=== PATIENT | female | born 1950 | race Caucasian/White ===

== ENCOUNTER 2022-01-28 14:32 | Outpatient (RCR) | payer MEDICARE, BC, SELFPAY ==
[2022-01-28 14:23] VITALS: BP 110/73; PULSE 84; RESP 16; TEMP 35.8; O2SAT 94
== END 2022-01-30 23:59 | disposition home or self-care (01) ==
LOC: CCIC 14:32
PROVIDERS: PCP Clinical Nurse Specialist; Visit Provider Clinical Nurse Specialist
DX: C54.1 Malignant neoplasm of endometrium (principal); R11.2 Nausea with vomiting, unspecified
CPT/HCPCS: 96360

== ENCOUNTER 2022-02-27 10:00 | Outpatient (RCR) | payer MEDICARE, BC, SELFPAY ==
[2022-01-31 10:30] VITALS: BP 132/71; PULSE 72; RESP 16; TEMP 36.2; O2SAT 96
[2022-01-31] MEDS: 0.9 % SODIUM CHLORIDE 1000 ml 1,000 ML IV (11:04)
--- NOTE | 2022-02-07 14:33 | ONC.NURNOTE ---
Pt did not show up for hydration appt, called pt, pt currently hospitalized for colitis.
[2022-02-18 11:38] VITALS: BP 117/71; PULSE 79; RESP 16; TEMP 36.1; O2SAT 97
[2022-02-18] MEDS: 0.9 % SODIUM CHLORIDE 1000 ml 1,000 ML IV (11:54)
[2022-02-20 11:36] VITALS: BP 148/77; PULSE 72; RESP 16; TEMP 36.2; O2SAT 99
[2022-02-20] MEDS: 0.9 % SODIUM CHLORIDE 1000 ml 1,000 ML 950 ML IV (12:17)
[2022-02-20] MEDS: SODIUM CHLORIDE 0.9 % (FLUSH) 10 ML SYRINGE IVF (16:55)
[2022-02-27 10:03] VITALS: BP 112/74; PULSE 70; RESP 16; TEMP 35.8; O2SAT 98
[2022-02-27] MEDS: SODIUM CHLORIDE 0.9 % (FLUSH) 10 ML SYRINGE IVF (10:26)
[2022-02-27] MEDS: 0.9 % SODIUM CHLORIDE 1000 ml 1,000 ML IV (10:27)
== END 2022-03-02 23:59 | disposition home or self-care (01) ==
LOC: CCIC 10:00
PROVIDERS: Visit Provider Clinical Nurse Specialist
DX: C54.1 Malignant neoplasm of endometrium (principal)
CPT/HCPCS: 96360; J7030

== ENCOUNTER 2022-05-01 14:59 | Emergency (ER) | payer MEDICARE, BC, SELFPAY ==
[2022-05-01 15:23] VITALS: BP 114/59; PULSE 66; RESP 16; O2SAT 96
[2022-05-01 16:00] VITALS: BP 122/57; PULSE 67; RESP 16; O2SAT 96
--- NOTE | 2022-05-01 16:10 | CRLHL7_ITS ---
For Patients: As a result of the Century Cures Act, medical imaging exams and procedure reports are released immediately into your electronic medical record. You may view this report before your referring provider. If you have questions, please contact your health care provider. INDICATION: Fall. TECHNIQUE: Head CT without contrast. COMPARISON: None. FINDINGS: Periventricular areas of low attenuation, likely due to chronic small vessel ischemic changes. Generalized volume loss. Atherosclerosis. No intracranial hemorrhage. No discrete mass or mass effect. There is no midline shift. The basilar cisterns are patent. No hydrocephalus. The figueroa-white matter interface is otherwise preserved. No acute osseous abnormality. No extracalvarial soft tissue abnormality. The mastoid air cells are clear. The paranasal sinuses are well-aerated. The visualized portions of the orbits and globes are unremarkable. IMPRESSION: No acute intracranial process per unenhanced head CT. Please note that all CT scans at this facility use dose modulation, iterative reconstruction, and/or weight-based dosing when appropriate to reduce radiation dose to as low as reasonably achievable. Dictated by Stephan Howell MD @ 05/01/2022 5:27:35 PM (Electronically Signed)
--- OUTSIDE RECORDS SUMMARY | 2022-05-01 16:10 | XMS_ITS | Encounter Summary ---
:1950 Author Organization [facility] Address [address] [place] [address] Care Team Providers Name Role Phone Elsewhere, Pcp Primary Care Provider Unavailable Encounter Details Date Type Department Care Team Description 04/16/2022 Clinical Communication Department of Judy Mccall Radiation [facility] [address] [facility] [address] [place] [address] [phone] Social History Tobacco Use Types Packs/Day Years Used Date Smoking Tobacco: Never Smokeless Tobacco: Never Alcohol Use Standard Drinks/Week Comments Not Currently 0 (1 standard drink = 0.6 oz pure alcoho l) rarely Alcohol Habits Answer Date Recorded How often do you have a drink containing alcohol? Never 03/17/2022 How many drinks containing alcohol do you have on a typical day 1 or 2 08/01/2021 when you are drinking? How often do you have six or more drinks on one occasion? Ne isabella 08/01/2021 Comment: rarely 09/16/2021 Social Isolation Answer Date Recorded In a typical week, how many times do you More than three marcell es a week 03/17/2022 talk on the phone with family, friends, or neighbors? How often do you get together with friends Twice a week 03/17/2022 or relatives? How often do you attend gnosticism or More than 4 times per year 03/17/2022 jewish services? Do you belong to any clubs or Yes 03/17/2022 organizations such as gnosticism groups, unions, fraternal or athletic groups, or school groups? How often do you attend meetings of the 1 to 4 times per yea r 03/17/2022 clubs or organizations you belong to? Are you now , , , 03/17/2022 , never or living with a partner? Physical Activity Answer Date Recorded On average, how many days per week do you engage in moderate to 4 days 03/17/2022 strenuous exercise (like walking fast, running, jogging, dancing, swimming, biking, or other activities that cause a light or heavy sweat)? On average, how many minutes do you engage in exercise at is 10 min 03/17/2022 level? Stress Answer Date Recorded Do you feel stress - tense, restless, nervous, or anxious, N ot at all 03/17/2022 or unable to sleep at night because your mind is troubled all the time - these days? Financial Resource Strain Answer Date Recorded How hard is it for you to pay for the very basics like Somew hat hard 03/17/2022 food, housing, medical care, and heating? Intimate Partner Violence Answer Date Recorded Within the last year, have you been afraid of your partner o r No 03/17/2022 ex-partner? Within the last year, have you been humiliated or emotionall y No 03/17/2022 abused in other ways by your partner or ex-partner? Within the last year, have you been kicked, hit, slapped, or No 03/17/2022 otherwise physically hurt by your partner or ex-partner? Within the last year, have you been raped or forced to have any No 03/17/2022 kind of sexual activity by your partner or ex-partner? Food Insecurity Answer Date Recorded Within the past 12 months, you worried that your food Never true 03/17/2022 would run out before you got money to buy more. Within the past 12 months, the food you bought just Sometime s true 03/17/2022 didn't last and you didn't have money to get more. Transportation Needs Answer Date Recorded In the past 12 months, has lack of transportation kept you f rom Yes 03/17/2022 medical appointments or from getting medications? In the past 12 months, has lack of transportation kept you f rom No 03/17/2022 meetings, work, or getting things needed for daily living? Housing Stability Answer Date Recorded In the last 12 months, was there a time when you were not ab le No 03/17/2022 to pay the mortgage or rent on time? In the last 12 months, how many places have you lived? 1 03/17/2022 In the last 12 months, was there a time when you did not hav e a No 03/17/[address] to sleep or slept in a [facility] (including now)? Education Answer Date Recorded What is the highest level of school Bachelor's degree (e.g., BA, AB, 07/20/2021 you have completed or the highest BS) degree you have received? 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 - 04/16/2022 12:52 PM CDT ASSESSMENT Patient calls today. She notes that she was on the way to the bathroom to urinate when she experienced explosive incontinent diarrhea. When this was occurring she became lightheaded/loss balance; started fainting and remembers bumping her head twice when she fainted to a sitting position on the groundin her hallway. She took 1 tablet of Imodium. Soon after she experienced two more episodes of continent diarrheas. She denies fevers or chills. She denies vomiting. She feels that her stomach is upset but denies nausea. Patient is home alone. Patient does not feel lightheaded now. She denies neurological changes, bleeding, bruising or hitting her head hard. PLAN I recommended that her bring her home Pedialyte as soon as possible. Patient is to take 2 tablets of Imodium now. She is to work on rehydrating with water now. She can take TUMS for upset stomach. Once, she starts to feel bowels are calming down she will slowly work on bland diet such as toast, applesauce, broth and rice. She will avoid spicy/acidic foods. If patient is feeling better then she will contact our scheduling desk to come in for treatment later this afternoon. I will update Dr. Mccall. If patient is not improving she will contact our care team immediately. Disposition/Recommendation: self-care - appropriate at this time, patient encouraged to call back with questions. Information/Education: patient/caller able to teach back. Caller agreeable to plan of care: yes. The following references were used: nursing clinical judgement. Telephone Encounter - Melly Perez - 04/16/2022 11:36 AM CDT Caller: Patient Is there a valid authorization to speak with caller? Yes Primary Radiation Oncologist: Dr. Mccall Reason for call: Patient called because she has been having explosive diarrhea for the last hour andis not sure if she can make it to her treatment scheduled today. She says she believes she may have even passed out once. She would like to speak with someone about what she can do. Phone number: [phone] Is it okay to leave a voicemail on answering machine with test results? Yes [facility] ([facility] [place] [facility] [place] [facility] [address] [facility] [address] [facility] [id number] [facility] [place] [address] [place] [address] [place] [address] [facility] [place], [place] - [address] [place] [id number] [facility] [place], [place] - [address] [facility] [address] [place] [address] Melly Perez documented in this encounter Plan of Treatment Upcoming Encounters Date Type Specialty Care Team Description 05/02/2022 Appointment Radiation Oncology Dot Lopez M.D. [address] [place] [phone] 05/05/2022 Appointment Radiation Oncology Judy Mccall M.D. [address] [place] [phone] 05/06/2022 Appointment Radiation Oncology Judy Mccall M.D. [address] [place] [phone] 05/06/2022 Appointment Radiation Oncology Judy Mccall M.D. [address] [place] [phone] 05/07/2022 Appointment Radiation Oncology Judy Mccall M.D. [address] [place] [phone] 05/08/2022 Appointment Radiation Oncology Judy Mccall M.D. [address] [place] [phone] 05/22/2022 Clinical Communication Admitting/Central Scheduling 05/26/2022 Appointment Radiology Merlyn Rose APRN, C.NLeopoldo, M.S.N. [address] [place] [phone] 05/27/2022 Office Visit Oncology Merlyn Rose APRN, C.NAye., M.S.N. [address] [place] [phone] documented as of this encounter Visit Diagnoses Not on filedocumented in this encounter Care Teams Leave Specialist Relationship Specialty Start Date End Date Elsewhere, Pcp PCP - General Internal Medicine 10/01/21 documented as of this encounter
--- OUTSIDE RECORDS SUMMARY | 2022-05-01 16:10 | XMS_ITS | Encounter Summary ---
:1950 Author Organization [facility] Address [address] [place] [address] Care Team Providers Name Role Phone Elsewhere, Pcp Primary Care Provider Unavailable Encounter Details Date Type Department Care Team Description 04/18/2022 Hospital Encounter Department of Radiation Trent Mccall I., Oncology in [facility] [address] [facility] [address] [place] [address] [phone] Social History Tobacco Use Types Packs/Day Years [...] or relatives? How often do you attend buddhism or More than 4 times per year 03/17/2022 yarsanism services? Do you belong to any clubs or Yes 03/17/2022 organizations such as buddhism groups, unions, fraternal or athletic groups, or [...] place to sleep or slept in a halfway (including now)? Education Answer Date Recorded What is the highest level of school Bachelor's degree (e.g., BA, AB, 07/20/2021 you have completed or the highest BS) degree you have received? 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 [address] [place] [phone] 05/05/2022 Appointment Radiation Oncology Judy Mccall M.D. [address] [place] [phone] 05/06/2022 Appointment Radiation Oncology Judy Mccall M.D. [address] [place] [address] [phone] 05/06/2022 Appointment Radiation Oncology Judy Mccall M.D. [address] [place] [phone] 05/07/2022 Appointment Radiation Oncology Judy Mccall M.D. [address] [place] [address] [phone] 05/08/2022 Appointment Radiation Oncology Judy Mccall M.D. [address] [place] [address] [phone] 05/22/2022 Clinical Communication Admitting/Central Scheduling 05/26/2022 Appointment Radiology Merlyn Rose APRN, C.NLeopoldo, M.S.N. [address] [place] [phone] 05/27/2022 Office Visit Oncology Merlyn Rose APRN, C.NLeopoldo, M.S.N. [address] [place] [phone] documented as of this encounter Visit Diagnoses Not on filedocumented in this encounter Care Teams Room Attendant Relationship Specialty Start Date End Date Elsewhere, Pcp PCP - General Internal Medicine 10/01/21 documented as of this encounter
--- OUTSIDE RECORDS SUMMARY | 2022-05-01 16:10 | XMS_ITS | Encounter Summary ---
:1950 Author Organization [facility] Address [address] [place] [address] Care Team Providers Name Role Phone Elsewhere, Pcp Primary Care Provider Unavailable Reason for Referral Radiation Therapy (Routine) - Authorized Specialty Diagnoses / Procedures Referred By Contact Refer red To Contact Diagnoses Malignant Neoplasm Of Uterus Endometrial (HCC) Dot Lopez M.D. [facility] Procedures Brachytherapy HDR [address] [place], [place] [phone] Referral ID Status Reason Start Date Expiration Date Visits V isits Requested Authorized [id number] Authorized 03/21/2022 03/21/2023 2 2 Reason for Visit Radiation Therapy (Routine) - Authorized Specialty Diagnoses / Procedures Referred By Contact Refer red To Contact Diagnoses Malignant Neoplasm Of Uterus Endometrial (HCC) Dot Lopez M.D. [facility] Procedures Brachytherapy HDR [address] [place], [place] [phone] Referral ID Status Reason Start Date Expiration Date Visits V isits Requested Authorized [id number] Authorized 03/21/2022 03/21/2023 2 2 Encounter Details Date Type Department Care Team Description 04/28/2022 Hospital Encounter Department of Dot Lopez ant Neoplasm Radiation Oncology [facility] C[facility]shaw Of Uterus in [place], [facility] [address] [facility] Endometrial (HCC) [place], [place] [address] [facility] [address] [place], [place] [phone] (Work) [phone] Social History Tobacco Use Types Packs/Day Years [...] or relatives? How often do you attend mormon or More than 4 times per year 03/17/2022 gnosticist services? Do you belong to any clubs or Yes 03/17/2022 organizations such as mormon groups, unions, fraternal or athletic groups, or [...] minutes do you engage in exercise at th is 10 min 03/17/2022 level? Stress Answer [...] place to sleep or slept in a fpc (including now)? Education Answer Date Recorded What is the highest level of school Bachelor's degree (e.g., BA, AB, 07/20/2021 you have completed or the highest BS) degree you have received? 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 albuterol 2.5 mg /3 mL Inhale 2.5 mg every 0 0 03/2018 nebulizer solution 4 (four) hours as needed for wheezing. albuterol 90 Inhale 2 puffs 0 08/22/2019 mcg/actuation inhaler every 4 (four) hours as needed for wheezing. apixaban (Eliquis) 5 mg Take 1 tablet (5 mg 180 tablet 3 04/15/2023 tablet total) by mouth 2 (two) times a day. calcium carbonate Take 1 tablet by 0 (CALCIUM 600 ORAL) mouth 2 (two) times a day. cetirizine (ZyrTEC) 10 mg Take 1 tablet by 0 07/03 tablet mouth daily. cholecalciferol, vitamin Take 1 tablet by 0 D3, (VITAMIN D3 ORAL) mouth every morning. clindamycin (CLEOCIN T) 1 APPLY ONE 60 mL 1 12/05/2021 % lotion APPLICATION TOPICALLY TWO TIMES A DAY TO SCALP CRANBERRY ORAL Take 1 tablet by 0 mouth every morning. ferrous sulfate 325 mg Take 325 mg by 0 (65 mg iron) tablet mouth every other day. fluticasone propionate Administer 2 sprays 0 03/2021 (FLONASE) 50 into nostril(s) 2 mcg/actuation nasal spray (two) times a day. ipratropium-albuteroL Inhale 3 mL every 6 0 07/30 (DUONEB) 0.5-2.5 mg/3 mL (six) hours as nebulizer solution needed for wheezing or shortness of breath. mometasone 0.033 Administer 2 sprays 84 mL 11 09/16/2021 %-ipratropium 0.02 into each nostril 2 %-diphenhydramine 0.033 % (two) times a day. nasal spray Shake very well prior to each use. montelukast (SINGULAIR) Take 1 tablet by 0 2020 10 mg tablet mouth at bedtime. NaCl 0.9 % irrigation 0 10/26/2021 omeprazole (PriLOSEC) 20 Take 20 mg by mouth [address] capsule every morning before breakfast. ondansetron (ZOFRAN) 4 mg Take 1 tablet (4 mg 20 tablet 0 0 10/07/2021 tablet total) by mouth every 8 (eight) hours as needed for nausea or vomiting. ondansetron (ZOFRAN) 8 mg Take 1 tablet (8 mg 30 tablet 3 0 10/22/2021 10/22/2022 tabletIndications: total) by mouth Malignant Neoplasm Of every 8 (eight) Uterus Endometrial (HCC) hours as needed for nausea or vomiting. ondansetron ODT Dissolve 1 tablet 30 tablet 1 12/10/2021 (ZOFRAN-ODT) 8 mg (8 mg total) in the disintegrating tablet mouth every 8 (eight) hours as needed for nausea or vomiting. prochlorperazine Take 1 tablet (10 30 tablet 3 10/22/2021 0 10/22/2022 (COMPAZINE) 10 mg mg total) by mouth tabletIndications: every 6 (six) hours Malignant Neoplasm Of as needed for Uterus Endometrial (HCC) nausea or vomiting. sennosides-docusate Take 1 tablet by 0 10/07/2021 sodium (SENOKOT-S) 8.6-50 mouth 2 (two) times mg per tablet a day as needed for constipation. sertraline (ZOLOFT) 100 Take 100 mg by 0 03/28/20 21 mg tablet mouth every morning. SODIUM CHLORIDE NASAL Administer into 0 nostril(s) 2 (two) times a day. Nasal irrigation before triple spray documented as of this encounter Procedure Notes Dot Lopez M.D. - 04/28/2022 9:00 AM CDTAssociated Order(s): Brachytherapy HDR Pre-Procedure Diagnose(s): Malignant Neoplasm Of Uterus Endometrial (HCC) Post-Procedure Diagnose(s): Malignant Neoplasm Of Uterus Endometrial (HCC) Brachytherapy HDR Performed by: Dot Lopez M.D. Authorized by: Dot Lopez M.D. PROCEDURE DETAILS Brachytherapy: Gynecologic brachytherapy Type: high dose rate Treatment Sites: Vaginal cuff Applicator(s): Unalakleet applicator Image-Guidance: CT Brachytherapy Fraction Number: 1 Prescription Dose this Fraction: 500 Dose prescribed to: 5-7 mm Total planned brachytherapy fractions: 2 Total planned brachytherapy dose: 1000 Applicator removed: Yes CONSENT The benefits, risks and alternatives to the procedure and the potential need for sedation or anesthesia as well as the names, roles, and responsibilities of healthcare team members performing significant interventional tasks were discussed with the patient and/or decision maker. PRE PROCEDURE DETAILS Procedure purpose: Therapeutic Indications: Endometrial cancer Appropriate hand hygiene, gown, cap, mask, protective eyewear, sterile gloves, skin preparation, sterile drape, and strict aseptic technique were utilized as applicable for the procedure.: yes SEDATION / ANESTHESIA Anesthesia method: none POST PROCEDURE DETAILS Patient tolerance of procedure: Successful Complications: No apparent complications Post-procedure Survey: Post-procedure survey performed and no residual radioactivity COMMENTS The patient presents for her first treatment. She reports diarrhea, controlled with Imodium, and bloating that is controlled with GasX. She takes Compazine prior to treatment. She had a fall at home related to dizziness; she hit her right elbow on the sink but did not hit her head. She is now receiving IV fluids and feeling much better. Patient was taken to the brachytherapy suite and placed on the table in the dorsal lithotomy position. On examination, the vaginal cuff was well-healed and there was no evidence of dehiscence. After serial dilation of the vagina, a multi-channel Unalakleet applicator with a 30 mm sleeve was inserted into the vagina with a marker at the 90 mm level (treated to 85 mm). The applicator was secured in positionwith the attachment device and fixed to the table. CT scan was done for verification of the positionof the applicator and post planning purposes. The pre-procedure verification was conducted, and the procedural time out was conducted prior to performing the procedure and confirmed in a procedural pause. Subsequently, the patient was treated using an atlas plan delivering 500 cGy to the optimized treatment volume with a HDR iridium source. Following the completion of brachytherapy, the applicator was removed without difficulty, a survey was done to confirm no residual radioactivity, and the patient was dismissed in good condition. She will return on 05/02/22 for her next fraction. She will continue with EBRT in [place] as scheduled. documented in this encounter Plan of Treatment Upcoming Encounters Date Type Specialty Care Team Description 05/02/2022 Appointment Radiation Oncology Dot Lopez M.D. [address] [place] [phone] 05/05/2022 Appointment Radiation Oncology Judy Mccall M.D. [address] [place] [address] [phone] 05/06/2022 Appointment Radiation Oncology Judy Mccall M.D. [address] [place] [address] [phone] 05/06/2022 Appointment Radiation Oncology Judy Mccall M.D. [address] [place] [phone] 05/07/2022 Appointment Radiation Oncology Judy Mccall M.D. [address] [place] [phone] 05/08/2022 Appointment Radiation Oncology Judy Mccall M.D. [address] [place] [phone] 05/22/2022 Clinical Communication Admitting/Central Scheduling 05/26/2022 Appointment Radiology Merlyn Rose APRN C.N.P., M.S.N. [address] [place] [address] [phone] 05/27/2022 Office Visit Oncology Merlyn Rose APRN C.N.P., M.S.N. [address] [place] [phone] documented as of this encounter Procedures Procedure Name Priority Date/Time Associated Diagnosis Comme nts BRACHYTHERAPY HDR Routine 04/28/2022 9:00 AM Malignant Neoplas m Of Results for this CDT Uterus Endometrial procedure are in (HCC) the results section. documented in this encounter Results Brachytherapy HDR (04/28/2022 9:00 AM CDT) Specimen (Source) Anatomical Location Collection Method / Collectio n Time Received Time / Laterality Volume Narrative TERI ONEAL - 04/28/2022 9:00 AM CDT Dot Lopez M.D. ? 04/28/2022 ??9:25 AM Brachytherapy HDR Performed by: Dot Lopez M.D. Authorized by: Dot Lopez M.D. PROCEDURE DETAILS Brachytherapy: ??Gynecologic brachythera py Type: high dose rate ?? Treatment Sites: ??Vaginal cuff Applicator(s): ??Unalakleet applicator Image-Guidance: CT ?? Brachytherapy Fraction Number: ??1 Prescription Dose this Fraction: ??500 Dose prescribed to: ??5-7 mm Total planned brachytherapy fractions: ? ?2 Total planned brachytherapy dose: ??1000 Applicator removed: ??Yes CONSENT The benefits, risks and alternatives to the procedure and the potential need for sedation or anesthesia as well as the names, roles, and responsibilities of healthcare team memb ers performing significant interventional tasks were discussed with the patient and/or decision maker. PRE PROCEDURE DETAILS ??Procedure purpose: ??Therapeutic ??Indications: ??Endometrial cancer ??Appropriate hand hygiene, gown, cap, mask, protective eyewear, sterile gloves, skin preparation, sterile drape, and strict aseptic technique were utilized as applicable for the procedure .: yes ?? SEDATION / ANESTHESIA Anesthesia method: none POST PROCEDURE DETAILS ??Patient tolerance of procedure: ??Suc cessful ??Complications: ??No apparent complica tions ??Post-procedure Survey: ??Post-procedu re survey performed and no residual radioactivity COMMENTS ?? The patient presents for her first t reatment. She reports diarrhea, controlled with Imodium, and bloating th at is controlled with GasX. She takes Compazine prior to treatment. She had a fall at home related to dizziness; she hit her right elbow on th e sink but did not hit her head. She is now receiving IV fluids and feeli ng much better. Patient was taken to the brachytherapy s [facility] and placed on the table in the dorsal lithotomy position. ??On exam ination, the vaginal cuff was well-healed and there was no evidence of dehiscence. After serial dilation of the vagina, a multi-channel Unalakleet tylor licator with a 30 mm sleeve was inserted into the vagina with a marker a t the 90 mm level (treated to 85 mm). ??The applicator was secured in pos ition with the attachment device and fixed to the table. CT scan was done for verification of the position of the applicator and post planning purp oses. The pre-procedure verification was condu cted, and the procedural time out was conducted prior to performing the pr ocedure and confirmed in a procedural pause. Subsequently, the patient was treated us ing an atlas plan delivering 500 cGy to the optimized treatment volume wi th a HDR iridium source. ?? Following the completion of brachytherap y, the applicator was removed without difficulty, a survey was done to confirm no residual radioactivity, and the patient was dismi ssed in good condition. She will return on 05/02/22 for her next fraction. She will continue with EBRT in [place] as scheduled. Dot Lopez M.D. RADIATION ONCOLOGY ORDERABLE S Performing Organization Address City/State/ZIP Code Phon e Number [facility] documented in this encounter Visit Diagnoses Diagnosis Malignant Neoplasm Of Uterus Endometrial (HCC) documented in this encounter Care Teams Street Light Repairer Helper Relationship Specialty Start Date End Date Elsewhere, Pcp PCP - General Internal Medicine 10/01/21 documented as of this encounter
--- OUTSIDE RECORDS SUMMARY | 2022-05-01 16:10 | XMS_ITS | Encounter Summary ---
:1950 Author Organization [facility] Address [address] [place] [address] Care Team Providers Name Role Phone Elsewhere, Pcp Primary Care Provider Unavailable Encounter Details Date Type Department Care Team Description 04/30/2022 Hospital Encounter Department of Radiation Trent Mccall I., Oncology in [facility] [address] [facility] [address] [place] [address] [phone] Social History Tobacco Use Types Packs/Day Years [...] or relatives? How often do you attend denominational or More than 4 times per year 03/17/2022 anglican services? 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 [address] [place] [address] [phone] 05/05/2022 Appointment Radiation Oncology Judy Mccall M.D. [address] [place] [address] [phone] 05/06/2022 Appointment Radiation Oncology Judy Mccall M.D. [address] [place] [address] [phone] 05/06/2022 Appointment Radiation Oncology Judy Mccall M.D. [address] [place] [phone] 05/07/2022 Appointment Radiation Oncology Judy Mccall M.D. [address] [place] [address] [phone] 05/08/2022 Appointment Radiation Oncology Judy Mccall M.D. [address] [place] [address] [phone] 05/22/2022 Clinical Communication Admitting/Central Scheduling 05/26/2022 Appointment Radiology Merlyn Rose APRN, C.NLeopoldo, M.S.N. [address] [place] [phone] 05/27/2022 Office Visit Oncology Merlyn Rose APRN, C.NLeopoldo, M.S.N. [address] [place] [phone] documented as of this encounter Visit Diagnoses Not on filedocumented in this encounter Care Teams Technology Sales Representative Relationship Specialty Start Date End Date Elsewhere, Pcp PCP - General Internal Medicine 10/01/21 documented as of this encounter
--- OUTSIDE RECORDS SUMMARY | 2022-05-01 16:10 | XMS_ITS | Encounter Summary ---
:1950 Author Organization [facility] Address [address] [place] [address] Care Team Providers Name Role Phone Elsewhere, Pcp Primary Care Provider Unavailable Encounter Details Date Type Department Care Team Description 04/17/2022 Clinical Communication Department of Judy Mccall Radiation [facility] [address] [facility] [address] [place] [address] [phone] Social History Tobacco Use Types Packs/Day Years [...] or relatives? How often do you attend pentecostal or More than 4 times per year 03/17/2022 religion services? Do you belong to any clubs or Yes 03/17/2022 organizations such as pentecostal groups, unions, fraternal or athletic groups, or [...] place to sleep or slept in a snf (including now)? Education Answer Date Recorded What is the highest level of school Bachelor's degree (e.g., BA, AB, 07/20/2021 you have completed or the highest BS) degree you have received? 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 - 04/17/2022 8:57 AM CDT REASON FOR CALL Follow up after symptomatic diarrhea on 04/16/2022 ASSESSMENT She reports that she is feeling better today. Her last diarrhea stool was yesterday afternoon. He took a total of 4 mg of Imodium yesterday. She was able to tolerate a low fiber bland diet in the evening and stay hydrated with Pedialyte. She does have some mild nausea. She is taking ondansteron once daily in the morning prior to treatment. She does not use essential oils due to some baseline asthma. She states that she has an increase in nausea and feeling of fullness when filling her bladder prior to treatment. She denies emesis. She denies fevers, chills, neurological changes, dizziness or abdominal pain. PLAN She should continue to stay well hydrated throughout the day using water and/or water with additional electrolytes such as Pedialyte. She should drink fluids slowly throughout the day. She should replace any liquid stools with additional 8 oz of fluid. She should take antiemetic at least one hour prior to treatment and may take additional medication as directed on the prescription bottle throughout the day to help with nausea. She should eat small frequent meals, a bland low fiber diet and space liquids away from meals to help with the feeling of fullness and diarrhea. She may continue to take 1 tablet of imodium after each episode of diarrhea. She was encouraged to avoid coffee, spicy foods and high fiber foods as these may increase her symptoms. If symptoms do not improve or if her condition worsens she should seek more immediate medical care. Disposition/Recommendation: self-care - appropriate at this time, patient encouraged to call back with questions. Information/Education: patient/caller able to teach back. Caller agreeable to plan of care: yes. The following references were used: nursing clinical judgement. Addendum: Patient came in for treatment today after we spoke over the phone. She went to the bathroom and voided and subsequently tried to quickly drink 2 glasses of water to fill her bladder. When drinking the 2 glasses she became nauseated and had an emesis. She reports she took her antiemetic one hour prior to treatment. She was then able to slowly sip on water and resume treatment. documented in this encounter Plan of Treatment Upcoming Encounters Date Type Specialty Care Team Description 05/02/2022 Appointment Radiation Oncology Dot Lopez M.D. [address] [place] [phone] 05/05/2022 Appointment Radiation Oncology Judy Mccall M.D. [address] [place] [phone] 05/06/2022 Appointment Radiation Oncology Judy Mccall M.D. [address] [place] [phone] 05/06/2022 Appointment Radiation Oncology Judy Mccall M.D. [address] [place] [phone] 05/07/2022 Appointment Radiation Oncology Judy Mccall M.D. [address] [place] [phone] 05/08/2022 Appointment Radiation Oncology Judy Mccall M.D. [address] [place] [phone] 05/22/2022 Clinical Communication Admitting/Central Scheduling 05/26/2022 Appointment Radiology Merlyn Rose APRN, C.NLeopoldo, M.S.N. [address] [place] [phone] 05/27/2022 Office Visit Oncology Merlyn Rose APRN, C.N.Anahi., M.S.N. [address] [place] [phone] documented as of this encounter Visit Diagnoses Diagnosis Malignant Neoplasm Of Uterus Endometrial (HCC) - Primary documented in this encounter Care Teams Electric Switch Repairer Relationship Specialty Start Date End Date Elsewhere, Pcp PCP - General Internal Medicine 10/01/21 documented as of this encounter
--- OUTSIDE RECORDS SUMMARY | 2022-05-01 16:10 | XMS_ITS | Encounter Summary ---
:1950 Author Organization [facility] Address [address] [place] [address] Care Team Providers Name Role Phone Elsewhere, Pcp Primary Care Provider Unavailable Encounter Details Date Type Department Care Team Description 04/24/2022 Hospital Encounter Department of Radiation Trent Mccall I., Oncology in [facility] [address] [facility] [address] [place] [address] [phone] Social History Tobacco Use Types Packs/Day Years [...] or relatives? How often do you attend jew or More than 4 times per year 03/17/2022 episcopal services? Do you belong to any clubs or Yes 03/17/2022 organizations such as jew groups, unions, fraternal or athletic groups, or [...] place to sleep or slept in a residential (including now)? Education Answer Date Recorded What is the highest level of school Bachelor's degree (e.g., BA, AB, 07/20/2021 you have completed or the highest BS) degree you have received? 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 [address] [place] [address] [phone] 05/05/2022 Appointment Radiation Oncology Judy Mccall M.D. [address] [place] [address] [phone] 05/06/2022 Appointment Radiation Oncology Judy Mccall M.D. [address] [place] [address] [phone] 05/06/2022 Appointment Radiation Oncology Judy Mccall M.D. [address] [place] [phone] 05/07/2022 Appointment Radiation Oncology Judy Mccall M.D. [address] [place] [address] [phone] 05/08/2022 Appointment Radiation Oncology Judy Mccall M.D. [address] [place] [address] [phone] 05/22/2022 Clinical Communication Admitting/Central Scheduling 05/26/2022 Appointment Radiology Merlyn Rose APRN, C.NLeopoldo, M.S.N. [address] [place] [phone] 05/27/2022 Office Visit Oncology Merlyn Rose APRN, C.NLeopoldo, M.S.N. [address] [place] [phone] documented as of this encounter Visit Diagnoses Not on filedocumented in this encounter Care Teams Resort Host Relationship Specialty Start Date End Date Elsewhere, Pcp PCP - General Internal Medicine 10/01/21 documented as of this encounter
--- OUTSIDE RECORDS SUMMARY | 2022-05-01 16:10 | XMS_ITS | Encounter Summary ---
:1950 Author Organization [facility] Address [address] [place] [address] Care Team Providers Name Role Phone Elsewhere, Pcp Primary Care Provider Unavailable Encounter Details Date Type Department Care Team Description 04/23/2022 Hospital Encounter Department of Radiation Trent Mccall I., Oncology in [facility] [address] [facility] [address] [place] [address] [phone] Social History Tobacco Use Types Packs/Day Years [...] or relatives? How often do you attend anabaptism or More than 4 times per year 03/17/2022 methodist services? 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 [address] [place] [address] [phone] 05/05/2022 Appointment Radiation Oncology Judy Mccall M.D. [address] [place] [address] [phone] 05/06/2022 Appointment Radiation Oncology Judy Mccall M.D. [address] [place] [address] [phone] 05/06/2022 Appointment Radiation Oncology Judy Mccall M.D. [address] [place] [phone] 05/07/2022 Appointment Radiation Oncology Judy Mccall M.D. [address] [place] [address] [phone] 05/08/2022 Appointment Radiation Oncology Judy Mccall M.D. [address] [place] [address] [phone] 05/22/2022 Clinical Communication Admitting/Central Scheduling 05/26/2022 Appointment Radiology Merlyn Rose APRN, C.NLeopoldo, M.S.N. [address] [place] [phone] 05/27/2022 Office Visit Oncology Merlyn Rose APRN, C.NLeopoldo, M.S.N. [address] [place] [phone] documented as of this encounter Visit Diagnoses Not on filedocumented in this encounter Care Teams Exterminator Relationship Specialty Start Date End Date Elsewhere, Pcp PCP - General Internal Medicine 10/01/21 documented as of this encounter
--- OUTSIDE RECORDS SUMMARY | 2022-05-01 16:10 | XMS_ITS | Encounter Summary ---
:1950 Author Organization [facility] Address [address] [place] [address] Care Team Providers Name Role Phone Elsewhere, Pcp Primary Care Provider Unavailable Reason for Referral Radiation Therapy (Routine) - Authorized Specialty Diagnoses / Procedures Referred By Contact Refer red To Contact Diagnoses Malignant Neoplasm Of Uterus Endometrial (HCC) Judy Mccall M.D. [facility] Procedures Management Visit [address] [place] [phone] Referral ID Status Reason Start Date Expiration Date Visits V isits Requested Authorized [id number] Authorized 03/27/2022 03/27/2023 8 8 Reason for Visit Radiation Therapy (Routine) - Authorized Specialty Diagnoses / Procedures Referred By Contact Refer red To Contact Diagnoses Malignant Neoplasm Of Uterus Endometrial (HCC) Judy Mccall M.D. [facility] Procedures Management Visit [address] [place] [phone] Referral ID Status Reason Start Date Expiration Date Visits V isits Requested Authorized [id number] Authorized 03/27/2022 03/27/2023 8 8 Encounter Details Date Type Department Care Team Description 04/22/2022 Hospital Encounter Department of Judy Mccall Neoplasm Of Uterus Endometrial (HCC) (Primary Dx); Radiation Oncology Brady Etienne Dehydration in [place], [address] [place], [place] [address] [facility] [address] [place], [place] [phone] (Work) [phone] Social History Tobacco Use Types Packs/Day Years [...] or relatives? How often do you attend baptist or More than 4 times per year 03/17/2022 jewish services? Do you belong to any clubs or Yes 03/17/2022 organizations such as baptist groups, unions, fraternal or athletic groups, or [...] place to sleep or slept in a usp (including now)? Education Answer Date Recorded What is the highest level of school Bachelor's degree (e.g., BA, AB, 07/20/2021 you have completed or the highest BS) degree you have received? 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 encounter Last Filed Vital Signs Vital Sign Reading Time Taken Comments Blood Pressure 103/53 04/22/2022 2:13 PM CDT Pulse 67 04/22/2022 2:10 PM CDT Temperature 36.2 ??C (97.2 ??F) 04/22/2022 2:10 PM CDT Respiratory Rate - - Oxygen Saturation - - Inhaled Oxygen Concentration - - Weight 88.4 kg (194 lb 14.2 oz) 04/22/2022 2:10 PM CDT Height - - Body Mass Index 32.35 03/20/2022 1:44 PM CDT documented in this encounter Medications at Time of Discharge [...] /3 mL Inhale 2.5 mg every 0 03/2018 nebulizer solution 4 (four) hours [...] triple spray documented as of this encounter Progress Notes Judy Mccall M.D. - 04/22/2022 2:15 PM CDT ATTESTATION FOR MANAGEMENT VISIT I saw and evaluated the patient and participated in the ingram portions of the service as noted below. I reviewed the documentation of Ms. Kari Larkin RN and agree with the findings and plan. The patient appears well on exam. We will try some IV fluids tomorrow and then PRN if she thinks this helped her feel better. We will continue with radiation as planned and monitor weekly. Judy Mccall M.D., 04/22/2022 SUBJECTIVE REASON FOR VISIT Evaluation for side effects while receiving radiation treatment for 1. Malignant Neoplasm Of Uterus Endometrial (HCC) 2. Dehydration SUPERVISED BY: Judy Mccall M.D. HISTORY OF PRESENT ILLNESS Nelda Pavon is a 71 y.o. female with endometrial cancer who has received chemotherapy and is currently receiving adjuvant radiotherapy. Brachytherapy boost is scheduled on our [facility] for April 28 and May 02, 2022. Treatment Course: 1xPelvisPA Plan ID Fractions Dose / Fraction (cGy) Dose Treated (cGy) Dose Planned (cGy) First Treatment Last Treatment Elapsed Days [id number] 180 2700 4500 03/31/2022 04/22/2022 Course Summary 03/31/2022 04/22/2022 The patient was seen and examined today with Dr. Mccall. Today patient reports losing her balance while in her kitchen and falling against the sink. She has a bruise on her right arm near her elbow where she made contact with the sink. The patient denies falling completely on the floor or hitting any other areas of her body. She denies fainting or loss of co nsciousness at the time of the fall. Orthostatic vital signs were taken at the visit. While sitting blood pressure was 126/68, pulse 67. Upon stand blooding pressure was 103/53, pulse 72. Patient reports dizziness with positional changes. She has 1-2 episode of watery diarrhea per day and is taking 2-4 tablets of Imodium for management of diarrhea. Patient started taking Compazine daily prior to treatment instead of Zofran to help with nausea. She is taking Gas-X to manage gas/bloating. Patient alsoreports drinking 84 oz of water per day. She denies fever, chills, abdominal pain, dysuria, hematuria, or blood in stool. PATIENT REPORTED SYMPTOM SCREEN FATIGUE (Scale: 0 = no fatigue; 10 = worst fatigue you can imagine): 6 PAIN (Scale: 0 = no pain; 10 = worst pain you can imagine): 0 OVERALL QUALITY OF LIFE (Scale: 0 = as bad as can be; 10 = as good as can be): 5 OBJECTIVE BP (!) 103/53 (BP Location: Right arm, Patient Position: Standing, Cuff Size: Regular) Pulse 67 Temp 36.2 ??C (Temporal) Wt 88.4 kg BMI 32.35 kg/m?? PHYSICAL EXAM General: Alert and oriented in no apparent distress. 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 Patient is noted to be orthostatic today. As needed daily IV fluids orders were placed today for [facility]. Patient is to receive 1 L 0.9 NS tomorrow and daily as needed through 05/14/22. Patient has Brachytherapy treatment scheduled on our [facility] on April 28 and 2021. Reviewed Brachytherapy education with patient. Patient will be seen in weekly management visits through out radiation therapy and will contact us withany questions or concerns. We will continue with radiation treatment as planned. Signed by: Kari Larkin R.N. 04/22/2022 3:09 PM CDT documented in this encounter Plan of Treatment Upcoming Encounters Date Type Specialty Care Team Description 05/02/2022 Appointment Radiation Oncology Dot Lopez M.D. [address] [place] [phone] 05/05/2022 Appointment Radiation Oncology Judy Mccall M.D. [address] [place] [phone] 05/06/2022 Appointment Radiation Oncology Judy Mccall M.D. [address] [place] [phone] 05/06/2022 Appointment Radiation Oncology Judy Mccall M.D. [address] [place] [phone] 05/07/2022 Appointment Radiation Oncology Judy Mccall M.D. [address] [place] [phone] 05/08/2022 Appointment Radiation Oncology Judy Mccall M.D. [address] [place] [address] [phone] 05/22/2022 Clinical Communication Admitting/Central Scheduling 05/26/2022 Appointment Radiology Merlyn Rose APRN, C.NLeopoldo, M.S.N. [address] [place] [phone] 05/27/2022 Office Visit Oncology Merlyn Rose APRN, C.NAye., M.S.N. [address] [place] [phone] Scheduled Orders Name Type Priority Associated Diagnoses Order S chedule Management Visit Radiation Oncology Routine Malignant Neoplasm Once for 1 Of Uterus Occurrences sta rting Endometrial (HCC) 04/22/2022 until 04/22/2022 documented as of this encounter Visit Diagnoses Diagnosis Malignant Neoplasm Of Uterus Endometrial (HCC) - Primary Dehydration documented in this encounter Care Teams It Application Administrator Relationship Specialty Start Date End Date Elsewhere, Pcp PCP - General Internal Medicine 10/01/21 documented as of this encounter
--- OUTSIDE RECORDS SUMMARY | 2022-05-01 16:10 | XMS_ITS | Encounter Summary ---
:1950 Author Organization [facility] Address [address] [place] [address] Care Team Providers Name Role Phone Elsewhere, Pcp Primary Care Provider Unavailable Encounter Details Date Type Department Care Team Description 04/21/2022 Hospital Encounter Department of Radiation Trent Mccall I., Oncology in [facility] [address] [facility] [address] [place] [address] [phone] Social History Tobacco Use Types Packs/Day Years [...] or relatives? How often do you attend worship or More than 4 times per year 03/17/2022 baptism services? 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 [address] [place] [address] [phone] 05/05/2022 Appointment Radiation Oncology Judy Mccall M.D. [address] [place] [address] [phone] 05/06/2022 Appointment Radiation Oncology Judy Mccall M.D. [address] [place] [address] [phone] 05/06/2022 Appointment Radiation Oncology Judy Mccall M.D. [address] [place] [phone] 05/07/2022 Appointment Radiation Oncology Judy Mccall M.D. [address] [place] [address] [phone] 05/08/2022 Appointment Radiation Oncology Judy Mccall M.D. [address] [place] [address] [phone] 05/22/2022 Clinical Communication Admitting/Central Scheduling 05/26/2022 Appointment Radiology Merlyn Rose APRN, C.NLeopoldo, M.S.N. [address] [place] [phone] 05/27/2022 Office Visit Oncology Merlyn Rose APRN, C.NLeopoldo, M.S.N. [address] [place] [phone] documented as of this encounter Visit Diagnoses Not on filedocumented in this encounter Care Teams Cardiopulmonary Specialist Relationship Specialty Start Date End Date Elsewhere, Pcp PCP - General Internal Medicine 10/01/21 documented as of this encounter
--- OUTSIDE RECORDS SUMMARY | 2022-05-01 16:10 | XMS_ITS | Encounter Summary ---
:1950 Author Organization [facility] Address [address] [place] [address] Care Team Providers Name Role Phone Elsewhere, Pcp Primary Care Provider Unavailable Reason for Referral Radiation Therapy (Routine) - Authorized Specialty Diagnoses / Procedures Referred By Contact Refer red To Contact Diagnoses Malignant Neoplasm Of Uterus Endometrial (HCC) Judy Mccall M.D. [facility] Procedures Management Visit [address] [place] [phone] Referral ID Status Reason Start Date Expiration Date Visits V isits Requested Authorized [id number] Authorized 03/27/2022 03/27/2023 8 8 Reason for Visit Radiation Therapy (Routine) - Authorized Specialty Diagnoses / Procedures Referred By Contact Refer red To Contact Diagnoses Malignant Neoplasm Of Uterus Endometrial (HCC) Judy [facility]ccall M.D. [facility] Management Visit [address] [place], [place] [phone] Referral ID Status Reason Start Date Expiration Date Visits V isits Requested Authorized [id number] Authorized 03/27/2022 03/27/2023 8 8 Encounter Details Date Type Department Care Team Description 04/15/2022 - Hospital Encounter Department of Judy Mccall Neoplasm 04/16/2022 Radiation Oncology Brady Etienne Of Uterus in [place], [address] [facility] Endometrial (HCC) [place], [place] [address] [facility] [address] [place], [place] [phone] (Work) [phone] Social History Tobacco Use Types Packs/Day Years [...] or relatives? How often do you attend samaritan or More than 4 times per year 03/17/2022 judaism services? Do you belong to any clubs or Yes 03/17/2022 organizations such as samaritan groups, unions, fraternal or athletic groups, or [...] place to sleep or slept in a fdc (including now)? Education Answer Date Recorded What is the highest level of school Bachelor's degree (e.g., BA, AB, 07/20/2021 you have completed or the highest BS) degree you have received? 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 LORazepam (ATIVAN) 0.5 mg Take 1 tablet (0.5 30 tablet 3 tabletIndications: mg total) by mouth Malignant Neoplasm Of every 8 (eight) Uterus Endometrial (HCC) hours as needed (nausea, vomiting) for up to 30 doses. mometasone 0.033 Administer 2 sprays 84 mL [...] documented as of this encounter Progress Notes Kari Larkin R.N. - 04/15/2022 2:00 PM CDT ATTESTATION FOR MANAGEMENT VISIT I saw and evaluated the patient and participated in the ingram portions of the service as noted below. I reviewed the documentation of Ms. Kari Larkin RN and agree with the findings and plan. The patient appears well on exam. I looked at her perianal skin. She has no external hemorrhoids or perianal erythema or irritation. I did not perform a rectal exam. We discussed her upcoming brachytherapy. She is doing well. We will continue with radiation as planned and monitor weekly. Judy Mccall M.D., 04/16/2022 SUBJECTIVE REASON FOR VISIT Evaluation for side effects while receiving radiation treatment for 1. Malignant Neoplasm Of Uterus Endometrial (HCC) SUPERVISED BY: Judy Mccall M.D. HISTORY OF PRESENT ILLNESS Nelda Pavon is a 71 y.o. female with endometrial cancer who has received chemotherapy and is currently receiving adjuvant radiotherapy. Brachytherapy boost is scheduled on our [facility] for April 28 and May 02, 2022. Treatment Course: 1xPelvisPA Plan ID Fractions Dose / Fraction (cGy) Dose Treated (cGy) Dose Planned (cGy) First Treatment Last Treatment Elapsed Days [id number] 03/31/2022 04/15/2022 Course Summary 03/31/2022 04/15/2022 15 The patient was seen and examined today with Dr. Mccall. The patient reports that she is doing well overall. She is experiencing some rectal soreness in which she is applying Aquaphor each time she goes to the bathroom. She is having two episodes of diarrheaper day in which she is taking a half a tablet of Imodium. Patient also reports that she experiencing gas/bloating. She denies dysuria or hematuria. She takes Zofran prior to treatment for nausea. PATIENT REPORTED SYMPTOM SCREEN FATIGUE (Scale: 0 = no fatigue; 10 = worst fatigue you can imagine): 2 PAIN (Scale: 0 = no pain; 10 = worst pain you can imagine): 0 OBJECTIVE BP 142/67 (BP Location: Left arm, Patient Position: Sitting, Cuff Size: Regular) Pulse 68 Temp 36.3 ??C (Temporal) Wt 90.6 kg BMI 33.16 kg/m?? PHYSICAL EXAM General: Alert and oriented in no apparent distress. 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 Patient can take Gas-X three times of day for gas/bloating. We will review brachytherapy plan next week. Patient is scheduled for brachytherapy on our [facility] on April 28 and 2021. Patient will be seen in weekly management visitsthrough out radiation therapy and will contact us with any questions or concerns. We will continue with radiation treatment as planned. Signed by: Kari Larkin R.N. 04/15/2022 2:44 PM CDT documented in this encounter Plan of Treatment Upcoming Encounters Date Type Specialty Care Team Description 05/02/2022 Appointment Radiation Oncology Dot Lopez M.D. [address] [place] [phone] 05/05/2022 Appointment Radiation Oncology Judy Mccall M.D. [address] [place] [phone] 05/06/2022 Appointment Radiation Oncology Judy Mccall M.D. [address] [place] [phone] 05/06/2022 Appointment Radiation Oncology Judy Mccall M.D. [address] [place] [phone] 05/07/2022 Appointment Radiation Oncology Judy Mccall M.D. [address] [place] [phone] 05/08/2022 Appointment Radiation Oncology Judy Mccall M.D. [address] [place] [phone] 05/22/2022 Clinical Communication Admitting/Central Scheduling 05/26/2022 Appointment Radiology Merlyn Rose APRN, C.NLeopoldo, M.S.N. [address] [place] [phone] 05/27/2022 Office Visit Oncology Merlyn Rose APRN, C.N.P., M.S.N. [address] [place] [phone] Scheduled Orders Name Type Priority Associated Diagnoses Order S chedule Management Visit Radiation Oncology Routine Malignant Neoplasm Once for 1 Of Uterus Occurrences sta rting Endometrial (HCC) 04/15/2022 until 04/15/2022 documented as of this encounter Visit Diagnoses Diagnosis Malignant Neoplasm Of Uterus Endometrial (HCC) documented in this encounter Care Teams Graduate Studies Dean Relationship Specialty Start Date End Date Elsewhere, Pcp PCP - General Internal Medicine 10/01/21 documented as of this encounter
--- OUTSIDE RECORDS SUMMARY | 2022-05-01 16:10 | XMS_ITS | Clinical Summary ---
:1950 Author Organization [facility] Address [address] [place] [address] Care Team Providers Name Role Phone Elsewhere, Pcp Primary Care Provider Unavailable Source Comments Patient records contain information from all sites at [facility]. For routine questions regarding patient records, call [phone] during business hours, M-F 8:00 AM - 5:00 PM Central Time. Record requests for emergency care only can be directed to [phone] at any time.[facility] Allergies Active Allergy Reactions Severity Noted Date Comments Amoxicillin-Pot Hives, Diarrhea, GI Medium 08/04/2013 Negat charles histamine Clavulanate intolerance control on peni cillin allergy testing Avoid penicilli ns & cephalosporins. May use cefazolin o nly. Diclofenac Hives High 07/28/2010 Patient reports hives over her entire body and has since a voided other NSAIDs including OTCs such as ibuprofen/na proxen Sulfa (Sulfonamide Hives 09/15/2006 Antibiotics) Medications Medication Sig Dispensed Refills Start End Date Status Date albuterol 2.5 mg /3 Inhale 2.5 mg 0 Active mL nebulizer solution every 4 (four) 8 hours as needed for wheezing. albuterol 90 Inhale 2 puffs 0 Ac tive mcg/actuation inhaler every 4 (four) 0 hours as needed for wheezing. ipratropium-albuteroL Inhale 3 mL 0 Active (DUONEB) 0.5-2.5 mg/3 every 6 (six) 7 mL nebulizer solution hours as needed for wheezing or shortness of breath. montelukast Take 1 tablet 0 Acti ve (SINGULAIR) 10 mg by mouth at 1 tablet bedtime. cetirizine (ZyrTEC) Take 1 tablet 0 Active 10 mg tablet by mouth daily. 0 fluticasone Administer 2 0 Activ e propionate (FLONASE) sprays into 1 50 mcg/actuation nostril(s) 2 nasal spray (two) times a day. omeprazole (PriLOSEC) Take 20 mg by [address] capsule mouth every 1 morning before breakfast. sertraline (ZOLOFT) Take 100 mg by 0 Active 100 mg tablet mouth every 1 morning. mometasone 0.033 Administer 2 84 mL 11 Active %-ipratropium 0.02 sprays into 2 %-diphenhydramine each nostril 2 0.033 % nasal spray (two) times a day. Shake very well prior to each use. CRANBERRY ORAL Take 1 tablet 0 A ctive by mouth every morning. calcium carbonate Take 1 tablet 0 Active (CALCIUM 600 ORAL) by mouth 2 (two) times a day. cholecalciferol, Take 1 tablet 0 Active vitamin D3, (VITAMIN by mouth every D3 ORAL) morning. ferrous sulfate 325 Take 325 mg by 0 Active mg (65 mg iron) mouth every tablet other day. SODIUM CHLORIDE NASAL Administer into 0 Active nostril(s) 2 (two) times a day. Nasal irrigation before triple spray acetaminophen Take 2 tablets 0 A ctive (TYLENOL) 500 mg (1,000 mg 2 tablet total) by mouth every 6 (six) hours as needed for pain, mild pain or score 1-3 of 10 or moderate pain or score 4-6 of 10. sennosides-docusate Take 1 tablet 0 Active sodium (SENOKOT-S) by mouth 2 2 8.6-50 mg per tablet (two) times a day as needed for constipation. ondansetron (ZOFRAN) Take 1 tablet 20 tablet 0 Active 4 mg tablet (4 mg total) by 2 mouth every 8 (eight) hours as needed for nausea or vomiting. ondansetron (ZOFRAN) Take 1 tablet 30 tablet 3 10/22 Active 8 mg (8 mg total) by 2 23 tabletIndications: mouth every 8 Malignant Neoplasm Of (eight) hours Uterus Endometrial as needed for (HCC) nausea or vomiting. prochlorperazine Take 1 tablet 30 tablet 3 10/23/19 Active (COMPAZINE) 10 mg (10 mg total) 2 23 tabletIndications: by mouth every Malignant Neoplasm Of 6 (six) hours Uterus Endometrial as needed for (HCC) nausea or vomiting. LORazepam (ATIVAN) Take 1 tablet 30 tablet 3 Active 0.5 mg (0.5 mg total) 2 tabletIndications: by mouth every Malignant Neoplasm Of 8 (eight) hours Uterus Endometrial as needed (HCC) (nausea, vomiting) for up to 30 doses. NaCl 0.9 % irrigation 0 Active 2 clindamycin (CLEOCIN APPLY ONE 60 mL 1 Active T) 1 % lotion APPLICATION 2 TOPICALLY TWO TIMES A DAY TO SCALP ondansetron ODT Dissolve 1 30 tablet 1 Act charles (ZOFRAN-ODT) 8 mg tablet (8 mg 2 disintegrating tablet total) in the mouth every 8 (eight) hours as needed for nausea or vomiting. apixaban (Eliquis) 5 Take 1 tablet 180 tablet 3 04/03 Active mg tablet (5 mg total) by 2 23 mouth 2 (two) times a day. apixaban (ELIQUIS) 5 Take 2 tablets 392 tablet 0 Discontinued mg tablet (10 mg total) 2 22 by mouth 2 (two) times a day for 8 days, THEN 1 tablet (5 mg total) 2 (two) times a day. 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 12/31/2021 Thrombocytopenia 12/31/2021 Dehydration 11/22/2021 Multiple Subsegmental Pulmonary Embolism Without Acute Cor Pulmonale 10/03/2021 Allergy Penicillin Antibiotic Personal History 022 Morbid Obesity Body Mass Index >= 35 with Comorbid Con dition 09/16/2021 Chronic Cough 09/16/2021 Malignant Neoplasm Of Uterus Endometrial 09/05/2021 Overview: Added automatically from request for alin yanez [id number] Gastroesophageal Reflux Disease NOS 08/29/2021 Morbid Obesity 05/28/2016 Asthma Mild Persistent 08/07/2011 Loss Hearing Sensorineural Bilateral 09/27/2008 Anxiety Generalized Disorder 09/15/2006 Bronchospasm Acute 09/15/2006 Depression Major One Episode Mild 09/15/2006 Sleep Apnea 09/15/2006 Rhinitis Chronic 09/15/2006 Other Psoriasis 09/15/2006 Neutropenia Chemotherapy Induced Encounters Date Type Specialty Care Team Description 05/01/2022 Hospital Encounter Radiation Oncology Judy Mccall M.D. 04/30/2022 Hospital Encounter Radiation Oncology Judy Mccall M.D. 04/29/2022 Hospital Encounter Radiation Oncology Judy Mccall M.D. 04/29/2022 Hospital Encounter Radiation Oncology Judy Mccall Malignant Neoplasm Brady Etienne Of Uterus Endometrial (HC C) 04/29/2022 Orders Only Oncology Merlyn Rose APRN C.N.P., M.S.N. 04/28/2022 Hospital Encounter Radiation Oncology Dot Lopezant Monico Noel M.D. Of Uterus Endometrial (HC C) 04/25/2022 Hospital Encounter Radiation Oncology Judy Mccall M.D. 04/24/2022 Hospital Encounter Radiation Oncology Judy Mccall M.D. 04/23/2022 Hospital Encounter Radiation Oncology Judy Mccall M.D. 04/22/2022 Hospital Encounter Radiation Oncology Judy Mccall Malignant Neoplasm Of Uterus Endometrial (HCC) (Primary Dx); Brady Etienne Dehydration 04/22/2022 Hospital Encounter Radiation Oncology Judy Mccall M.D. 04/21/2022 Hospital Encounter Radiation Oncology Judy Mccall M.D. 04/18/2022 Hospital Encounter Radiation Oncology Judy Mccall Malignant Neoplasm Brady Etienne Of Uterus Retterath, Endometrial (HC C) Kari Valenzuela R.N. (Primary Dx) 04/18/2022 Hospital Encounter Radiation Oncology Judy Mccall M.D. 04/17/2022 Hospital Encounter Radiation Oncology Judy Mccall M.D. 04/17/2022 Clinical Radiation Oncology Stefany Judyjenelle Etienne M.D. 04/16/2022 Clinical Radiation Oncology Stefany Judy Communication Brady Etienne 04/15/2022 - Hospital Encounter Radiation Oncology Judy Mccall Malignant Neoplasm 04/16/2022 Brady Etienne Of Uterus Endometrial (HC C) 04/15/2022 Hospital Encounter Radiation Oncology Stefany Judyjenelle Etienne M.D. 04/14/2022 Hospital Encounter Radiation Oncology Stefany Judyjenelle Etienne M.D. 04/12/2022 Refill Gynecology Sheila Torres, [facility] Refill ALVA, R.NYi 04/11/2022 Hospital Encounter Radiation Oncology Stefany Judyjenelle Etienne M.D. 04/10/2022 Hospital Encounter Radiation Oncology Stefany Judyjenelle Etienne M.D. 04/09/2022 Hospital Encounter Radiation Oncology Stefany Judyjenelle Etienne M.D. 04/08/2022 Hospital Encounter Radiation Oncology Stefany Judy Malignant Neoplasm Brady Etienne Of Uterus Endometrial (HC C) 04/08/2022 Hospital Encounter Radiation Oncology Stefany Judyjenelle Etienne M.D. 04/04/2022 Hospital Encounter Radiation Oncology Stefany Judyjenelle Etienne M.D. 04/03/2022 Hospital Encounter Radiation Oncology Stefany Judy Malignant Neoplasm Brady Etienne Of Uterus Lynn Matthew, Endometrial (H CC) R.N. 04/03/2022 Hospital Encounter Radiation Oncology Stefany Judyjenelle Etienne M.D. 04/02/2022 Hospital Encounter Radiation Oncology Stefany Judyjenelle Etienne M.D. 04/01/2022 Hospital Encounter Radiation Oncology Stefany Judy Malignant Neoplasm Brady Etienne Of Uterus Endometrial (HC C) 04/01/2022 Hospital Encounter Radiation Oncology Stefany Judyjenelle Etienne M.D. 03/31/2022 Hospital Encounter Radiation Oncology Stefany Judyjenelle Etienne M.D. 03/31/2022 Hospital Encounter Radiation Oncology Stefany Judy Malignant Neoplasm Brady Etienne Of Uterus Endometrial (HC C) 03/21/2022 Orders Only Radiation Oncology Rolando, Malignant Neoplasm Mariluz A, TILTING HEAD BAND SAWYER, Of Uterus C.N.P., D.N.P. Endometrial ( HCC) (Primary Dx) 03/20/2022 - Hospital Encounter Radiation Oncology Dot Lopez alignant Neoplasm 03/21/2022 Brady Noel Of Uterus Endometrial (HC C) 03/20/2022 - Hospital Encounter Radiation Oncology Dot Lopez alignant Neoplasm 03/21/2022 EBrady Of Uterus Endometrial (HC C) (Primary Dx) 03/20/2022 Office Visit Oncology AnoopMerlyn noel Malignant Ne oplasm M, TILTING HEAD BAND SAWYER, Of Uterus C.N.P., M.S.N. Endometrial ( HCC) (Primary Dx) 03/20/2022 Hospital Encounter Radiology Evon Seemoose Sharpa nt Neoplasm Brady Schroeder, Ph.D. Of Uterus Endometrial (HC C) 03/19/2022 Hospital Encounter Laboratory Mayi Lionel Sharpa nt Neoplasm Medicine SBrady, Ph.D. Of Uterus Endometrial (HC C) 03/19/2022 Orders Only Radiation Oncology Ju Holliday Malign ant Neoplasm C Of Uterus (HCC) (Primary Dx) 03/18/2022 Orders Only Radiation Oncology Joycatina, Malignant Neoplasm Mariluz A, TILTING HEAD BAND SAWYER, Of Uterus C.N.P., D.N.P. Endometrial ( HCC) (Primary Dx) 02/19/2022 Infusion Oncology Merlyn Rose Malignant Ne oplasm Of Uterus Endometrial (HCC) (Primary Dx); M, TILTING HEAD BAND SAWYER, Neutropenia Dolly motherapy Induced (HCC); C.N.P., M.S.N. Multiple Subs egmental Pulmonary Embolism Without Acute Cor Pulmonale (HCC) 02/19/2022 Office Visit Oncology MiltonWinteryn Malignant Ne oplasm Of Uterus Endometrial (HCC); M, TILTING HEAD BAND SAWYER, Neutropenia Dolly motherapy Induced (HCC) C.N.P., M.S.N. 02/18/2022 Hospital Encounter Laboratory Merlyn Rose Malign ant Neoplasm Of Uterus Endometrial (HCC); Medicine M, TILTING HEAD BAND SAWYER, Neutropenia Dolly motherapy Induced (HCC) C.N.P., M.S.N. 02/14/2022 Clinical Oncology JameeSirisha yesenia Communication K, M.S.N., R.N. 02/06/2022 Documentation Oncology Alecia Leyva M.D. 02/06/2022 Orders Only Oncology Alecia Leyva M.D. 01/30/2022 Infusion Oncology Merlyn Rose Malignant Ne oplasm Of Uterus Endometrial (HCC) (Primary Dx); M, TILTING HEAD BAND SAWYER, Neutropenia Dolly motherapy Induced (HCC); C.N.P., M.S.N. Multiple Subs egmental Pulmonary Embolism Without Acute Cor Pulmonale (HCC) 01/29/2022 Office Visit Oncology Lionel See Malignant Aron plasm Of Uterus Endometrial (HCC); Brady Schroeder, Ph.D. Neutropenia C hemotherapy Induced (HCC) 01/29/2022 Clinical Oncology Mayi Lionel Communication Sarah Schroeder., Ph.D. from Last 3 Months Immunizations Name Administration Dates Next Due HZV (ZOSTAVAX) 05/05/2013 HepB Adult 09/24/1995, 06/18/1995, 03/25/1995 Influenza (IM) Preservative Free 05/17/2011 Influenza TIV (IM) 05/06/2013, 05/17/2011, 07/19/2010 Influenza, Quadrivalent, Adjuvanted, 05/10/2021, 05/17/2020 Preservative Free Influenza, Seasonal, Injectable 06/13/2014, 05/05/2013, 04/04, 07/19/2010, 05/29/2003 PCV13 05/25/2017 PPSV23 06/03/2018 RZV (SHINGRIX) 03/21/2019, 01/03/2019 Td (Adult), adsorbed 01/10/2003 Tdap 06/09/2013 influenza high dose (65 years or 06/16/2019, 06/03/2018, , older) (PF) 06/07/2016 influenza vaccine quad 05/25/2017, 05/03/2015 (FLUZONE/FLUARIX) (6 months and older)(PF) Family History Medical History Relation Name Comments Colon cancer Maternal Grandmother Colon cancer Mother Breast cancer Paternal Grandmother Relation Name Status Comments Maternal Grandmother Mother Paternal Grandmother Social History Tobacco Use Types Packs/Day Years [...] or relatives? How often do you attend adventist or More than 4 times per year 03/17/2022 anglican services? Do you belong to any clubs or Yes 03/17/2022 organizations such as adventist groups, unions, fraternal or athletic groups, or [...] place to sleep or slept in a retirement (including now)? Education Answer Date Recorded What is the highest level of school Bachelor's degree (e.g., BA, AB, 07/20/2021 you have completed or the highest BS) degree you have received? 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 [address] [place] [address] [phone] 05/05/2022 Appointment Radiation Oncology Judy Mccall M.D. [address] [place] [address] [phone] 05/06/2022 Appointment Radiation Oncology Judy Mccall M.D. [address] [place] [phone] 05/06/2022 Appointment Radiation Oncology Judy Mccall M.D. [address] [place] [address] [phone] 05/07/2022 Appointment Radiation Oncology Judy Mccall M.D. [address] [place] [address] [phone] 05/08/2022 Appointment Radiation Oncology Judy Mccall M.D. [address] [place] [address] [phone] 05/22/2022 Clinical Communication Admitting/Central Scheduling 05/26/2022 Appointment Radiology Merlyn Rose APRN, C.N.P., M.S.N. [address] [place] [address] [phone] 05/27/2022 Office Visit Oncology Anoopsadie Merlynruben Sam APRN, C.N.P., M.S.N. [address] [place] [phone] Health Maintenance Due Date Last Done Comments Bone Density Scan (Osteoporosis 1950 Screen) CT Colonography 1950 Cologuard 1950 Colonoscopy 1950 Colorectal Cancer Surveillance 1950 Depression Monitoring (PHQ-9) 1950 Hepatitis C Screening 1950 Mammogram 1950 COVID-19 Vaccine (4 - Booster for 08/19/2021 06/24/2021, , Pfizer series) 10/07/2020 Influenza Vaccine (#1) 2022 05/10/2021, 05/17/2020, 06/16/2019, Additional history exists Fasting Glucose for Diabetes 02/18/2025 02/18/2022, 022, Screening 01/20/2022, Additional history exists DTaP,Tdap,and Td Vaccines (3 - Td 11/16/2031 11/15/2021, , or Tdap) 01/10/2003 Pneumococcal vaccine (65+ years) Completed 06/03/2018, Zoster Vaccines Completed 03/21/2019, 01/03/2019, 05/05/2013 Fall Risk Screen (Annual) Completed 03/20/2022 Medical Devices Implanted Type Area Master Rigger Device Shelf Model / Identifier Expiration Date Ser ial / Lot Hardware E.G. Hardware e.g. Toes Pins/Screws/Ro pins/screws/r ds ods Description: Wire in big toe Clp Hrzn Ti 6 Clp Kenrick - [id number] Hardware e.g. Tel eflex [id number] 06/09/2026 [id number] / Implanted: Qty: 1 on 10/01/2021 by Jessy Willams M.D. at [facility] pins/screws/rods [facility] / [id number] Procedures Procedure Name Priority Date/Time Associated Comments Diagnosis ARIA DAILY TREATMENT Routine 05/01/2022 Results for INFORMATION 12:49 PM CDT this procedure are in the results section. ARIA DAILY TREATMENT Routine 04/30/2022 Results for INFORMATION 12:50 PM CDT this procedure are in the results section. ARIA DAILY TREATMENT Routine 04/29/2022 Results for INFORMATION 12:54 PM CDT this procedure are in the results section. ARIA DAILY TREATMENT Routine 04/28/2022 9:26 Resu lts for INFORMATION AM CDT this procedure are in the results section. BRACHYTHERAPY HDR Routine 04/28/2022 9:00 Malignant Neoplasm R esults for AM CDT Of Uterus this procedure Endometrial (HCC) are in the results section. ARIA DAILY TREATMENT Routine 04/25/2022 Results for INFORMATION 12:50 PM CDT this procedure are in the results section. ARIA DAILY TREATMENT Routine 04/24/2022 1:26 Resu lts for INFORMATION PM CDT this procedure are in the results section. ARIA DAILY TREATMENT Routine 04/23/2022 Results for INFORMATION 12:48 PM CDT this procedure are in the results section. ARIA DAILY TREATMENT Routine 04/22/2022 1:58 Resu lts for INFORMATION PM CDT this procedure are in the results section. ARIA DAILY TREATMENT Routine 04/21/2022 Results for INFORMATION 12:49 PM CDT this procedure are in the results section. ARIA DAILY TREATMENT Routine 04/18/2022 2:15 Resu lts for INFORMATION PM CDT this procedure are in the results section. ARIA DAILY TREATMENT Routine 04/17/2022 2:50 Resu lts for INFORMATION PM CDT this procedure are in the results section. ARIA DAILY TREATMENT Routine 04/15/2022 1:37 Resu lts for INFORMATION PM CDT this procedure are in the results section. ARIA DAILY TREATMENT Routine 04/14/2022 Results for INFORMATION 12:44 PM CDT this procedure are in the results section. ARIA DAILY TREATMENT Routine 04/11/2022 Results for INFORMATION 12:46 PM CDT this procedure are in the results section. ARIA DAILY TREATMENT Routine 04/10/2022 1:40 Resu lts for INFORMATION PM CDT this procedure are in the results section. ARIA DAILY TREATMENT Routine 04/09/2022 Results for INFORMATION 12:47 PM CDT this procedure are in the results section. ARIA DAILY TREATMENT Routine 04/08/2022 1:39 Resu lts for INFORMATION PM CDT this procedure are in the results section. ARIA DAILY TREATMENT Routine 04/04/2022 8:48 Resu lts for INFORMATION AM CDT this procedure are in the results section. ARIA DAILY TREATMENT Routine 04/03/2022 1:05 Resu lts for INFORMATION PM CDT this procedure are in the results section. ARIA DAILY TREATMENT Routine 04/02/2022 8:40 Resu lts for INFORMATION AM CDT this procedure are in the results section. ARIA DAILY TREATMENT Routine 04/01/2022 9:30 Resu lts for INFORMATION AM CDT this procedure are in the results section. ARIA DAILY TREATMENT Routine 03/31/2022 Results for INFORMATION 11:59 AM CDT this procedure are in the results section. INITIAL RAD ONC Routine 03/20/2022 5:37 Malignant Neoplasm Res ults for TREATMENT PLANNING CT PM CDT Of Uterus this p rocedure SIMULATION Endometrial (HCC) are in the results section. CT ABDOMEN PELVIS WITH RAD - Routine 03/20/2022 Malignant Neoplas m Results for IV CONTRAST (most inpatients 10:21 AM CDT Of Uterus this proced ure and all Endometrial (HCC) are in the outpatients) results section. CT CHEST WITH IV RAD - Routine 03/20/2022 Malignant Neoplasm Resu lts for CONTRAST (most inpatients 10:21 AM CDT Of Uterus this proced ure and all Endometrial (HCC) are in the outpatients) results section. SODIUM, S/P Routine 03/19/2022 Malignant Neoplasm Results f or 10:38 AM CDT Of Uterus this procedure Endometrial (HCC) are in the results section. POTASSIUM, S/P Routine 03/19/2022 Malignant Neoplasm Results for 10:38 AM CDT Of Uterus this procedure Endometrial (HCC) are in the results section. CREATININE WITH EGFR, Routine 03/19/2022 Malignant Neoplasm Results for S/P 10:38 AM CDT Of Uterus this procedure Endometrial (HCC) are in the results section. CBC WITH DIFFERENTIAL, Routine 03/19/2022 Malignant Neoplasm Results for B 10:38 AM CDT Of Uterus this procedure Endometrial (HCC) are in the results section. BILIRUBIN, TOT, S/P Routine 03/19/2022 Malignant Neoplasm Re sults for 10:38 AM CDT Of Uterus this procedure Endometrial (HCC) are in the results section. ASPARTATE Routine 03/19/2022 Malignant Neoplasm Results f or AMINOTRANSFERASE 10:38 AM CDT Of Uterus this proced ure (AST), S/P Endometrial (HCC) are in the results section. ALKALINE PHOSPHATASE, Routine 03/19/2022 Malignant Neoplasm Results for S/P 10:38 AM CDT Of Uterus this procedure Endometrial (HCC) are in the results section. COMPREHENSIVE Routine 02/18/2022 Malignant Neoplasm Results for METABOLIC PANEL, S/P 10:41 AM CDT Of Uterus this pr ocedure Endometrial (HCC ) are in the Neutropenia results Chemotherapy section. Induced (HCC) CBC WITH DIFFERENTIAL, Routine 02/18/2022 Malignant Neoplasm Results for B 10:41 AM CDT Of Uterus this procedure Endometrial (HCC ) are in the Neutropenia results Chemotherapy section. Induced (HCC) from Last 3 Months Results Aria Daily Treatment Information (05/01/2022 12:49 PM CDT)Only the most recent of22 resultswithin the time period is included. [facility] gist Method Time Signature Course ID [id number] WILLIAMSON ARIA A Course Start Date WILLIAMSON ARIA 2 15:12 CDT First Treatment WILLIAMSON ARIA Date 2 11:55 CDT Last Treatment WILLIAMSON ARIA Date 2 12:49 CDT Treatment Elapsed 31 WILLIAMSON ARIA Days Reference Point dpv 4500x WILLIAMSON ARIA Dosage Given to 3780 WILLIAMSON ARIA Date cGy Session Dosage 180 WILLIAMSON ARIA Given Plan ID [id number] WILLIAMSON ARIA A Fractions Treated 21 WILLIAMSON ARIA to Date Planned Total 25 WILLIAMSON ARIA Fractions Prescribed Dose 180 WILLIAMSON ARIA Per Fraction Prescription Dose 4500 WILLIAMSON ARIA in cGy Plan Primary dpv 4500x WILLIAMSON ARIA Reference Point Specimen (Source) Anatomical Collection Method Collection Time Re ceived Time Location / / Volume Laterality 05/01/2022 12:49 PM CDT Provider Not In System RADIATION ONCOLOGY ORDERABLE S Performing Organization Address City/State/ZIP Code Phon e Number TERI ONEAL na Brachytherapy HDR (04/28/2022 9:00 AM CDT) Specimen (Source) Anatomical Location Collection Method / Collectio n Time Received Time / Laterality Volume Narrative WILLIAMSON ARIA - 04/28/2022 9:00 AM CDT Dot Lopez M.D. ? 04/28/2022 ??9:25 AM Brachytherapy HDR Performed by: Dot Lopez M.D. Authorized by: Dot Lopez M.D. PROCEDURE DETAILS Brachytherapy: ??Gynecologic brachythera py Type: high dose rate ?? Treatment Sites: ??Vaginal cuff Applicator(s): ??Isabella applicator Image-Guidance: CT ?? Brachytherapy Fraction Number: [...] Patient was taken to the brachytherapy s [facility] and placed on the table in the dorsal lithotomy position. ??On exam ination, the vaginal cuff was well-healed and there was no evidence of dehiscence. After serial dilation of the vagina, a multi-channel Isabella tylor licator with a 30 mm sleeve [...] fraction. She will continue with EBRT in [place] as scheduled. Dot Lopez M.D. RADIATION ONCOLOGY ORDERABLE S Performing Organization Address [facility]/ZIP Code Phon e Number WILLIAMSON KIMMY ONEAL na Initial Rad Onc Treatment Planning CT Simulation (03/20/2022 5:37 PM CDT) Specimen (Source) Anatomical Location Collection Method / Collectio n Time Received Time / Laterality Volume Narrative TERI ONEAL - 03/20/2022 5:37 PM CDT Milagros Granados, JOSE F ? 03/20/2022 ??5:37 PM Initial Rad Onc Treatment Planning CT Si mulation Date/Time: 03/20/2022 5:37 PM Performed by: Dot Lopez M.D. Authorized by: Dot Lopez M.D. Dot Lopez M.D. RADIATION ONCOLOGY ORDERABLE S Performing Organization Address [facility]/ZIP Code Phon e Number WILLIAMSON KIMMY christina CT Abdomen Pelvis with IV Contrast (03/20/2022 10:21 AM CDT) Anatomical Region Laterality Modality Abdomen, Pelvis, Abdominal RST LOS, N/A Comp uted Tomography, Computed Abdominal ARZ LOS, Abdominal FLA LOS Yonis ography Specimen (Source) Anatomical Collection Method Collection Time Re ceived Time Location / / Volume Laterality 03/20/2022 10:16 AM CDT Impressions 03/20/2022 11:46 AM CDT 1. Interval postsurgical changes of hysterectomy, bilateral salpingo- oophorectomy, pelvic and left periaortic lymphadenectomy, and omentect amanda. 2. An enhancing 0.5 cm soft tissue nodul e adjacent to the bladder dome is suspicious for local (intraperitoneal) recurrence. 3. Enhancing 0.5 cm nodule deep to the l eft posterior pelvic sidewall has decreased in size and may represent treated disease. 4. No evidence of distant metastatic car cinoma in the abdomen or pelvis. Narrative 03/20/2022 11:46 AM CDT EXAM: ??CT ABDOMEN PELVIS WITH IV CONTRAST. This exam was performed in conjunction with a CT of the chest, which will be reported separately . COMPARISON: ??Pelvic MRI from 09/04/2021 , FDG PET/CT from 08/29/2021, and CT from 08/12/2021. FINDINGS: Interval postsurgical changes of hystere ctomy, bilateral salpingo-oophorectomy, pelvic and left periaortic lymphadenectomy, and omentect amanda. ??There is a 0.5 cm enhancing oval soft tissue nodule adjacent to the bladder dome (series6/im age55). ??Mild peritoneal thickening along the left posterior pelvic sidewall persists and may represe nt postsurgical change. ??Enhancing 0.5 cm soft tissue nodule (3/119) deep to the left posterior pelvi c peritoneum has decreased in size since CT w08/12/2021 when it measured 1.2 cm (compare to 3/[address] 08/12/2021). There is no abdominal or pelvic lymphadenopathy. No suspicious hepatic lesions. No intrah epatic or extrahepatic biliary ductal dilatation. Mild splenomegaly is unchanged. The gallbladd er, pancreas, adrenal glands, and kidneys are unremarkable. No hydronephrosis. Normal caliber large and small bowel. Colonic diverticulosis. Aortoiliac vascular calcifications. Stable lumbar spine degenerative changes . No suspicious osseous lesions. Procedure Note Fady Pires M.D. - 03/20/2022Formatt ing of this note might be different from the original. EXAM: CT ABDOMEN PELVIS WITH IV CONTRAST . This exam was performed in conjunction with a CT of the chest, which will be reported separately . COMPARISON: Pelvic MRI from 09/04/2021, FDG PET/CT from 08/29/2021, and CT from 08/12/2021. FINDINGS: Interval postsurgical changes of hystere ctomy, bilateral salpingo-oophorectomy, pelvic and left periaortic lymphadenectomy, and omentect amanda. There is a 0.5 cm enhancing oval soft tissue nodule adjacent to the bladder dome (series6/im age55). Mild peritoneal thickening along the left posterior pelvic sidewall persists and may represe nt postsurgical change. Enhancing 0.5 cm soft tissue nodule (3/119) deep to the left posterior pelvi c peritoneum has decreased in size since CT w08/12/2021 when it measured 1.2 cm (compare to 3/[address] 08/12/2021). There is no abdominal or pelvic lymphadenopathy. No suspicious hepatic lesions. No intrah epatic or extrahepatic biliary ductal dilatation. Mild splenomegaly is unchanged. The gallbladd er, pancreas, adrenal glands, and kidneys are unremarkable. No hydronephrosis. Normal caliber large and small bowel. Colonic diverticulosis. Aortoiliac vascular calcifications. Stable lumbar spine degenerative changes . No suspicious osseous lesions. IMPRESSION: 1. Interval postsurgical changes of hyst erectomy, bilateral salpingo- oophorectomy, pelvic and left periaortic lymphadenectomy, and omentect amanda. 2. An enhancing 0.5 cm soft tissue nodul e adjacent to the bladder dome is suspicious for local (intraperitoneal) recurrence. 3. Enhancing 0.5 cm nodule deep to the l eft posterior pelvic sidewall has decreased in size and may represent treated disease. 4. No evidence of distant metastatic car cinoma in the abdomen or pelvis. Lionel See M.D., Ph.D. IMG CT PROCEDURES CT Chest with IV Contrast (03/20/2022 10:21 AM CDT) Anatomical Region Laterality Modality Chest, Thoracic RST LOS, Thoracic ARZ N/A Co mputed Tomography, Computed LOS, Thoracic ARZ LOS, Thoracic FLA Sky graphy LOS Specimen (Source) Anatomical Collection Method Collection Time Re ceived Time Location / / Volume Laterality 03/20/2022 10:30 AM CDT Impressions 03/20/2022 11:54 AM CDT 1. New 3 mm nodule in the right upper lobe. There are a couple of other indeterminate small nodules, which can be followed. 2. Improved aeration in the lung bases w ith decreased moderate atelectasis that was present on CT 10/02/2021. Narrative 03/20/2022 11:54 AM CDT EXAM: CT CHEST WITH IV CONTRAST COMPARISON: CT chest 10/02/2021 and PET/ CT 08/29/2021. FINDINGS: Previous bibasilar atelectasis has essen tially resolved with trace residual. New 3 mm nodule in the right upper lobe posteriorly (3/115). A 5 mm subpleural nodule in the right lower lobe (3/236) is located in an area of mostly obscured by atelectasis on the prior exams. A sub-3 mm micronodule in the posterior le ft upper lobe (3/83) was not definitely seen previously. Small unchanged nodules include in the a nterior right upper lobe (3/223), right middle lobe (345), and posterior left upper lobe (225). Mild central bronchiectasis. Small thyro id nodules. Enlargement of the main pulmonary artery. Stable trace pericardial effusion. Cardiomegaly . Calcified mediastinal/left hilar lymph nodes. No adenopathy. Hypertrophic changes in the spine. No suspicious osseous lesions. 3D maximum intensity projection (MIP) im ages were created on a dependent workstation as ordered by the treating provider and reviewed by e radiologist to increase sensitivity for detection of pulmonary nodules. Procedure Note Ryan Garcia M.D. - 03/20/2022Formatt ing of this note might be different from the original. EXAM: CT CHEST WITH IV CONTRAST COMPARISON: CT chest 10/02/2021 and PET/ CT 08/29/2021. FINDINGS: Previous bibasilar atelectasis has essen tially resolved with trace residual. New 3 mm nodule in the right upper lobe posteriorly (3/115). A 5 mm subpleural nodule in the right lower lobe (3/236) is located in an area of mostly obscured by atelectasis on the prior exams. A sub-3 mm micronodule in the posterior le ft upper lobe (3/83) was not definitely seen previously. Small unchanged nodules include in the a nterior right upper lobe (3/223), right middle lobe (345), and posterior left upper lobe (225). Mild central bronchiectasis. Small thyro id nodules. Enlargement of the main pulmonary artery. Stable trace pericardial effusion. Cardiomegaly . Calcified mediastinal/left hilar lymph nodes. No adenopathy. Hypertrophic changes in the spine. No suspicious osseous lesions. 3D maximum intensity projection (MIP) im ages were created on a dependent workstation as ordered by the treating provider and reviewed by iggy noel radiologist to increase sensitivity for detection of pulmonary nodules. IMPRESSION: 1. New 3 mm nodule in the right upper lo be. There are a couple of other indeterminate small nodules, which can be followed. 2. Improved aeration in the lung bases w ith decreased moderate atelectasis that was present on CT 10/02/2021. Lionel See M.D., Ph.D. IMG CT PROCEDURES (ABNORMAL) CBC with Differential, Blood (03/19/2022 10:38 AM CDT)Only the most recent of2 resultswithin the time period is included. [facility] Method Time Signature Hemoglobin 8.7 (L) 11.6 - 03/19/2022 FB60 15.0 g/dL 11:13 AM CDT Hematocrit 27.4 (L) 35.5 - 03/19/2022 FB60 44.9 % 11:13 AM CDT Erythrocytes 2.64 (L) 3.92 - 03/19/2022 FB60 5.13 11:13 AM CDT x10(12)/L MCV 103.8 (H) 78.2 - 03/19/2022 FB60 97.9 fL 11:13 AM CDT RBC Distrib Width 16.2 (H) 12.2 - 03/19/2022 FB60 16.1 % 11:13 AM CDT Platelet Count 129 (L) 157 - 371 03/19/2022 FB60 x10(9)/L 11:13 AM CDT Leukocytes 2.4 (L) 3.4 - 9.6 03/19/2022 FB60 x10(9)/L 11:13 AM CDT Neutrophils 0.90 (L) 1.56 - 03/19/2022 FB60 6.45 11:13 AM CDT x10(9)/L Lymphocytes 1.02 0.95 - 03/19/2022 FB60 3.07 11:13 AM CDT x10(9)/L Monocytes 0.42 0.26 - 03/19/2022 FB60 0.81 11:13 AM CDT x10(9)/L Eosinophils 0.02 (L) 0.03 - 03/19/2022 FB60 0.48 11:13 AM CDT x10(9)/L Basophils 0.01 0.01 - 03/19/2022 FB60 0.08 11:13 AM CDT x10(9)/L Specimen Anatomical Collection Method Collection Time Receive d Time (Source) Location / / Volume Laterality Blood (Blood, 03/19/2022 10:38 03/19/2022 Venous) AM CDT 10:38 AM CDT Lionel See M.D., Ph.D. LAB BLOOD ADD-ON Performing Organization Address City/State/ZIP Code Phon e Number [address] [place] [address] [facility] [address] [place] [address] AST (Aspartate Aminotransferase) (03/19/2022 10:38 AM CDT) Patholo gist Method Time Signature Aspartate 13 8 - 43 03/19/2022 [facility] Aminotransferase U/L 2:02 PM CDT (AST), P Specimen Anatomical Collection Method Collection Time Receive d Time (Source) Location / / Volume Laterality Blood (Blood, 03/19/2022 10:38 03/19/2022 1:26 Venous) AM CDT PM CDT Lionel See M.D., Ph.D. LAB BLOOD ADD-ON Performing Organization Address City/State/ZIP Code Phon e Number [facility]- [address] [place] [address] [place] [address] System in [place] [address] Sodium (03/19/2022 10:38 AM CDT) P athologist Signature Sodium, P 142 135 - 145 03/19/2022 2:02 [place] mmol/L PM CDT Specimen Anatomical Collection Method Collection Time Receive d Time (Source) Location / / Volume Laterality Blood (Blood, 03/19/2022 10:38 03/19/2022 1:26 Venous) AM CDT PM CDT Lionle See M.D., Ph.D. LAB BLOOD ADD-ON Performing Organization Address City/State/ZIP Code Phon e Number [facility]- [address] [place] [address] [facility] [place] [place] [address] System in [place] [address] Potassium (03/19/2022 10:38 AM CDT) P athologist Signature Potassium, P 4.1 3.6 - 5.2 03/19/2022 [facility] mmol/L 2:02 PM CDT Specimen Anatomical Collection Method Collection Time Receive d Time (Source) Location / / Volume Laterality Blood (Blood, 03/19/2022 10:38 03/19/2022 1:26 Venous) AM CDT PM CDT Lionel See M.D., Ph.D. LAB BLOOD ADD-ON Performing Organization Address City/State/ZIP Code Phon e Number [facility]- [address] [facility] [place] [address] [facility] [place] [address] System in [place] [address] Alkaline Phosphatase (03/19/2022 10:38 AM CDT) athologist Signature Alkaline 83 35 - 104 03/19/2022 [place] Phosphatase, P U/L 2:02 PM CDT Specimen Anatomical Collection Method Collection Time Receive d Time (Source) Location / / Volume Laterality Blood (Blood, 03/19/2022 10:38 03/19/2022 1:26 Venous) AM CDT PM CDT Lionel See M.D., Ph.D. LAB BLOOD ADD-ON Performing Organization Address City/State/ZIP Code Phon e Number [facility]- [address] [place] [address] [facility] [place] [address] System in [place] [address] Creatinine with Estimated GFR (03/19/2022 10:38 AM CDT) P athologist Signature Creatinine 0.78 0.59 - 03/19/2022 [facility] 1.04 mg/dL 2:02 PM CDT eGFR-Black/Afric 88 >=60 03/19/2022 [place] an [place] Citizen mL/min/BSA 2:02 PM CDT Comment: ----ADDITIONAL INFORMATION---- Estimated GFR calculated using the 2009 CKD_EPI creatinine equation. eGFR Non-Black/ 77 >=60 mL/min/BSA 2:02 PM CDT [facility] Comment: ----ADDITIONAL INFORMATION---- Estimated GFR calculated using the 2009 CKD_EPI creatinine equation. Specimen Anatomical Collection Method Collection Time Receive d Time (Source) Location / / Volume Laterality Blood (Blood, 03/19/2022 10:38 03/19/2022 1:26 Venous) AM CDT PM CDT Lionel See M.D., Ph.D. LAB BLOOD ADD-ON Performing Organization Address City/[facility] Code Phon e Number [facility]- [address] [place] [address] [place] [address] System in [place] [address] Bilirubin, Total (03/19/2022 10:38 AM CDT) P athologist Signature Bilirubin, 0.3 <=1.2 mg/dL 03/19/2022 [facility] Total, P 2:02 PM CDT Specimen Anatomical Collection Method Collection Time Receive d Time (Source) Location / / Volume Laterality Blood (Blood, 03/19/2022 10:38 03/19/2022 1:26 Venous) AM CDT PM CDT Lionel See M.D., Ph.D. LAB BLOOD ADD-ON Performing Organization Address City/State/[facility] Code Phon e Number [facility]- [address] [place] [address] [place] [address] System in [place] [address] Comprehensive Metabolic Panel (02/18/2022 10:41 AM CDT) P athologist Signature Potassium, P 4.2 3.6 - 5.2 02/18/2022 [place] mmol/L 2:12 PM CDT Sodium, P 142 135 - 145 02/18/2022 [place] mmol/L 2:12 PM CDT Chloride, P 107 98 - 107 02/18/2022 [place] mmol/L 2:12 PM CDT Bicarbonate, P 25 22 - 29 02/18/2022 [place] mmol/L 2:12 PM CDT Anion Gap, P 10 7 - 15 02/18/2022 [facility] 2:12 PM CDT BUN (Blood Urea 13 6 - 21 02/18/2022 [place] Nitrogen), P mg/dL 2:12 PM CDT Creatinine 0.78 0.59 - 02/18/2022 [place] 1.04 mg/dL 2:12 PM CDT eGFR-Black/Afric 88 >=60 02/18/2022 [place] an [place] Citizen mL/min/BSA 2:12 PM CDT Comment: ----ADDITIONAL INFORMATION---- Estimated GFR calculated using the 2009 CKD_EPI creatinine equation. eGFR Non-Black/ 77 >=60 mL/min/BSA 2:12 PM CDT [facility] Comment: ----ADDITIONAL INFORMATION---- Estimated GFR calculated using the 2009 CKD_EPI creatinine equation. Calcium, Total, P 9.2 8.8 - 10.2 mg/dL 02/18/2022 2:12 PM CDT [place] Glucose, P 122 70 - 140 mg/dL 02/18/2022 2:12 PM CDT O PEDRO Protein, Total, P 6.5 6.3 - 7.9 g/dL 02/18/2022 2:12 P M CDT [place] Albumin, P 4.3 3.5 - 5.0 g/dL 02/18/2022 2:12 PM CDT O PEDRO Aspartate Aminotransferase 15 8 - 43 U/L 02/18/2022 2 :12 PM CDT [place] (AST), P Alkaline Phosphatase, P 84 35 - 104 U/L 02/18/2022 2: 12 PM CDT [facility] Alanine Aminotransferase (ALT), 8 7 - 45 U/L 022 2:12 PM CDT OW[place] P Bilirubin, Total, P 0.3 <=1.2 mg/dL 02/18/2022 2:12 PM CDT OW[facility] Specimen Anatomical Collection Method Collection Time Receive d Time (Source) Location / / Volume Laterality Blood (Blood, 02/18/2022 10:41 02/18/2022 1:26 Venous) AM CDT PM CDT Merlyn Rose APRN, C.N.P., M.S.N. LAB BLOOD ADD-ON Performing Organization Address City/State/ZIP Code Phon e Number [facility]- [address] [place] [address] [place] [address] System in [place] [address] from Last 3 Months Insurance Payer Benefit Plan Subscriber ID Effective Phone Address Typ e / Group Dates MEDICARE MEDICARE A [id number] 2015-Prese [address] [place] [address] [id number] [id number] 2020-Prese [phone] [address] [facility] [facility] [address] [phone] [place] [address] Advance Directives For more information, please contact: [phone] Latest Code Status on File Code Status Date Activated Date Inactivated Comments Full Code 10/01/2021 6:40 AM 10/07/2021 7:58 PM Full Code: Discussed Care Teams Vocational Training Director Relationship Specialty Start Date End Date Elsewhere, Pcp PCP - General Internal Medicine 10/01/21
--- OUTSIDE RECORDS SUMMARY | 2022-05-01 16:10 | XMS_ITS | Encounter Summary ---
:1950 Author Organization [facility] Address [address] [place] [address] Care Team Providers Name Role Phone Elsewhere, Pcp Primary Care Provider Unavailable Encounter Details Date Type Department Care Team Description 04/25/2022 Hospital Encounter Department of Radiation Trent Mccall I., Oncology in [facility] [address] [facility] [address] [place] [address] [phone] Social History Tobacco Use Types Packs/Day Years [...] More than 4 times per year 03/17/2022 anabaptist services? 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 [address] [place] [address] [phone] 05/05/2022 Appointment Radiation Oncology Judy Mccall M.D. [address] [place] [address] [phone] 05/06/2022 Appointment Radiation Oncology Judy Mccall M.D. [address] [place] [address] [phone] 05/06/2022 Appointment Radiation Oncology Judy Mccall M.D. [address] [place] [phone] 05/07/2022 Appointment Radiation Oncology Judy Mccall M.D. [address] [place] [address] [phone] 05/08/2022 Appointment Radiation Oncology Judy Mccall M.D. [address] [place] [address] [phone] 05/22/2022 Clinical Communication Admitting/Central Scheduling 05/26/2022 Appointment Radiology Merlyn Rose APRN, C.NLeopoldo, M.S.N. [address] [place] [phone] 05/27/2022 Office Visit Oncology Merlyn Rose APRN, C.NLeopoldo, M.S.N. [address] [place] [phone] documented as of this encounter Visit Diagnoses Not on filedocumented in this encounter Care Teams Supervisor Microbiology Technologists Relationship Specialty Start Date End Date Elsewhere, Pcp PCP - General Internal Medicine 10/01/21 documented as of this encounter
--- OUTSIDE RECORDS SUMMARY | 2022-05-01 16:10 | XMS_ITS | Encounter Summary ---
:1950 Author Organization [facility] Address [address] [place] [address] Care Team Providers Name Role Phone Elsewhere, Pcp Primary Care Provider Unavailable Reason for Referral Outpatient (Routine) - Authorized Specialty Diagnoses / Procedures Referred By Contact Refer red To Contact Radiation Oncology Judy Mccall [facility] M.D. [address] [place] [phone] Referral ID Status Reason Start Date Expiration Date Visits V isits Requested Authorized [id number] Authorized 03/27/2022 03/26/2025 3 3 Reason for Visit Outpatient (Routine) - Authorized Specialty Diagnoses / Procedures Referred By Contact Refer red To Contact Radiation Oncology Judy Mccall [facility] M.D. [address] [place] [phone] Referral ID Status Reason Start Date Expiration Date Visits V isits Requested Authorized [id number] Authorized 03/27/2022 03/26/2025 3 3 Encounter Details Date Type Department Care Team Description 04/18/2022 Hospital Encounter Department of Dana Mccall M.D. [address] [place] [phone] Malignant Neoplasm Radiation Oncology RetterathKari R.N. [address] [place] [phone] Of Uterus in [facility] ( [facility]) [place] (Primary Dx) [address] [place] [address] Social History Tobacco Use Types Packs/Day Years [...] or relatives? How often do you attend hindu or More than 4 times per year 03/17/2022 pres[employer]beterian services? Do you belong to any clubs or Yes 03/17/2022 organizations such as hindu groups, unions, fraternal or athletic groups, or [...] place to sleep or slept in a longterm (including now)? Education Answer Date Recorded What is the highest level of school Bachelor's degree (e.g., BA, AB, 07/20/2021 you have completed or the highest BS) degree you have received? 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 - 04/18/2022 12:45 PM CDT SUBJECTIVE REASON FOR VISIT Evaluation for side effects while receiving radiation treatment. NURSE VISIT SUPERVISED BY: HISTORY OF PRESENT ILLNESS Nelda Pavon is a 71 y.o. female with endometrial cancer who has received chemotherapy and is currently receiving adjuvant radiotherapy. Brachytherapy boost is scheduled on our [facility] for April 28 and May 02, 2022. Treatment Course: 1xPelvisPA Plan ID Fractions Dose / Fraction (cGy) Dose Treated (cGy) Dose Planned (cGy) First Treatment Last Treatment Elapsed Days [id number] 03/31/2022 04/18/2022 18 Course Summary 03/31/2022 04/18/2022 18 Patient requested a nurse visit because she is feeling unwell and has been struggling to manage diarrhea and nausea prior to treatment. Pt reports that when she arrived at treatment today she experienced bowel urgency. She did have an episode of diarrhea at clinic and voided so she had to restart the bladder fill process. Once patient started drinking water again she did vomit but reports feeling better after vomiting. She verbalizes taking 1/2 tablet of Imodium and Zofran prior to treatment today. Patient denies lightheadedness or dizziness. She verbalized that she is doing the BRAT diet and drinking fluids. OBJECTIVE There were no vitals taken for this visit. PHYSICAL EXAM General: Alert and oriented in no apparent distress. ASSESSMENT / PLAN Patient was instructed to increase her Imodium to one tablet and to take it 45 minutes prior to treatment. Patient was also informed that she could take another 1/2 tablet once she got to treatment if she was experiencing bowel urgency. Advised patient on eating an earlier dinner and reviewed Diarrhea [id number] pamphlet. Also reviewed anti-emetic prescriptions and how to take them. Patient can take Gas-X if needed for bloating and start taking a probiotic to help with bowel symptoms. She was encouraged to continue to drink fluids and stay well hydrated. Patient verbalized understanding. Patient cancontact Radiation Oncology [facility] with any questions and concerns. Signed by: Kari Larkin R.N. 04/18/2022 3:32 PM CDT documented in this encounter Plan of Treatment Upcoming Encounters Date Type Specialty Care Team Description 05/02/2022 Appointment Radiation Oncology Dot Lopez M.D. [address] [place] [phone] 05/05/2022 Appointment Radiation Oncology Judy Mccall M.D. [address] [place] [phone] 05/06/2022 Appointment Radiation Oncology Judy Mccall M.D. [address] [place] [phone] 05/06/2022 Appointment Radiation Oncology Judy Mccall M.D. [address] [place] [phone] 05/07/2022 Appointment Radiation Oncology Judy Mccall M.D. [address] [place] [phone] 05/08/2022 Appointment Radiation Oncology Judy Mccall M.D. [address] [place] [phone] 05/22/2022 Clinical Communication Admitting/Central Scheduling 05/26/2022 Appointment Radiology Merlyn Rose APRN, C.N.P., M.S.N. [address] [place] [phone] 05/27/2022 Office Visit Oncology Merlyn Rose APRN C.N.P., M.S.N. [address] [place] [phone] Scheduled Referrals Name Type Priority Associated Order Schedule Diagnoses Radiation Oncology Outpatient Referral Routine On ce for 1 nurse visit Occurrences sta rting (clinic) 04/18/2022 unti l 04/18/2022 documented as of this encounter Visit Diagnoses Diagnosis Malignant Neoplasm Of Uterus Endometrial (HCC) - Primary documented in this encounter Care Teams Board Design Engineer Relationship Specialty Start Date End Date Elsewhere, Pcp PCP - General Internal Medicine 10/01/21 documented as of this encounter
--- OUTSIDE RECORDS SUMMARY | 2022-05-01 16:10 | XMS_ITS | Encounter Summary ---
:1950 Author Organization [facility] Address [address] [place] [address] Care Team Providers Name Role Phone Elsewhere, Pcp Primary Care Provider Unavailable Encounter Details Date Type Department Care Team Description 05/01/2022 Hospital Encounter Department of Radiation Trent Mccall I., Oncology in [facility] [address] [facility] [address] [place] [address] [phone] Social History Tobacco Use Types Packs/Day Years [...] or relatives? How often do you attend methodist or More than 4 times per year 03/17/2022 jainism services? Do you belong to any clubs or Yes 03/17/2022 organizations such as methodist groups, unions, fraternal or athletic groups, or [...] place to sleep or slept in a long-term (including now)? Education Answer Date Recorded What is the highest level of school Bachelor's degree (e.g., BA, AB, 07/20/2021 you have completed or the highest BS) degree you have received? 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 [address] [place] [address] [phone] 05/05/2022 Appointment Radiation Oncology Judy Mccall M.D. [address] [place] [address] [phone] 05/06/2022 Appointment Radiation Oncology Judy Mccall M.D. [address] [place] [address] [phone] 05/06/2022 Appointment Radiation Oncology Judy Mccall M.D. [address] [place] [phone] 05/07/2022 Appointment Radiation Oncology Judy Mccall M.D. [address] [place] [address] [phone] 05/08/2022 Appointment Radiation Oncology Judy Mccall M.D. [address] [place] [address] [phone] 05/22/2022 Clinical Communication Admitting/Central Scheduling 05/26/2022 Appointment Radiology Merlyn Rose APRN, C.NLeopoldo, M.S.N. [address] [place] [phone] 05/27/2022 Office Visit Oncology Merlyn Rose APRN, C.NLeopoldo, M.S.N. [address] [place] [phone] documented as of this encounter Visit Diagnoses Not on filedocumented in this encounter Care Teams Cover Cutter Relationship Specialty Start Date End Date Elsewhere, Pcp PCP - General Internal Medicine 10/01/21 documented as of this encounter
--- OUTSIDE RECORDS SUMMARY | 2022-05-01 16:10 | XMS_ITS | Encounter Summary ---
:1950 Author Organization [facility] Address [address] [place] [address] Care Team Providers Name Role Phone Elsewhere, Pcp Primary Care Provider Unavailable Reason for Referral Radiation Therapy (Routine) - Authorized Specialty Diagnoses / Procedures Referred By Contact Refer red To Contact Diagnoses Malignant Neoplasm Of Uterus Endometrial (HCC) Judy Mccall M.D. [facility] Procedures Management Visit [address] [place], [place] [phone] Referral ID Status Reason Start Date Expiration Date Visits V isits Requested Authorized [id number] Authorized 03/27/2022 03/27/2023 8 8 Reason for Visit Radiation Therapy (Routine) - Authorized Specialty Diagnoses / Procedures Referred By Contact Refer red To Contact Diagnoses Malignant Neoplasm Of Uterus Endometrial (HCC) Judy Mccall M.D. [facility] Procedures Management Visit [address] [place] [phone] Referral ID Status Reason Start Date Expiration Date Visits V isits Requested Authorized [id number] Authorized 03/27/2022 03/27/2023 8 8 Encounter Details Date Type Department Care Team Description 04/29/2022 Hospital Encounter Department of Judy Mccall Neoplasm Radiation Oncology Brady Etienne Of Uterus in [place], [address] [facility] Endometrial (HCC) [employer], [place] [address] [facility] [phone] [place], [place] [phone] (Work) [phone] Social History Tobacco Use Types Packs/Day Years [...] or relatives? How often do you attend voodoo or More than 4 times per year 03/17/2022 anabaptist services? Do you belong to any clubs or Yes 03/17/2022 organizations such as voodoo groups, unions, fraternal or athletic groups, or [...] place to sleep or slept in a skilled nursing (including now)? Education Answer Date Recorded What is the highest level of school Bachelor's degree (e.g., BA, AB, 07/20/2021 you have completed or the highest BS) degree you have received? 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 - 04/29/2022 11:45 AM CDT ATTESTATION FOR MANAGEMENT VISIT I saw and evaluated the patient and participated in the ingram portions of the service as noted below. I reviewed the documentation of Ms. Kari Larkin RN and agree with the findings and plan. The patient appears well on exam. We will continue with radiation as planned and monitor weekly. Judy Mccall M.D., 04/29/2022 SUBJECTIVE REASON FOR VISIT Evaluation for side effects while receiving radiation treatment for 1. Malignant Neoplasm Of Uterus Endometrial (HCC) SUPERVISED BY: Judy Mccall M.D. HISTORY OF PRESENT ILLNESS Nelda Pavon is a 71 y.o. female with endometrial cancer who has received chemotherapy and is currently receiving adjuvant radiotherapy. Brachytherapy boost is scheduled on our [facility] for April 28 and May 02, 2022. Treatment Course: 1xPelvisPA Plan ID Fractions Dose / Fraction (cGy) Dose Treated (cGy) Dose Planned (cGy) First Treatment Last Treatment Elapsed Days [id number] 03/31/2022 04/25/2022 25 Course Summary 03/31/2022 04/25/2022 25 Treatment Course: 1bVagCuff Plan ID Fractions Dose / Fraction (cGy) Dose Treated (cGy) Dose Planned (cGy) First Treatment Last Treatment Elapsed Days [id number] 04/28/2022 04/28/2022 0 Course Summary 04/28/2022 04/28/2022 0 The patient was seen and examined today with Dr. Mccall. The patient had her first of two brachytherapy treatments yesterday. Patient reports that everythingwent well. She continues to experience daily episodes of diarrhea. The amount of diarrhea varies each day but she reports no more that four episodes per day. She is using Imodium to manage diarrhea andwill take upwards of 3 tablets daily depending on how much diarrhea she is experiencing. Gas-X is used to manage gaseous bloating. Patient takes Compazine prior to treatment for nausea. She received IVfluids at [facility] twice last week. Patient reports feeling better and having less fatigue after receiving IV fluids. She denies dizziness, fever, chills, abdominal pain, dysuria, hematuria, or blood in stool. PATIENT REPORTED SYMPTOM SCREEN FATIGUE (Scale: 0 = no fatigue; 10 = worst fatigue you can imagine): 4 PAIN (Scale: 0 = no pain; 10 = worst pain you can imagine): 0 OVERALL QUALITY OF LIFE (Scale: 0 = as bad as can be; 10 = as good as can be): 5 OBJECTIVE BP 120/68 (BP Location: Right arm, Patient Position: Sitting, Cuff Size: Regular) Pulse 71 Temp (!) 35.9 ??C (Temporal) Wt 89.1 kg BMI 32.61 kg/m?? PHYSICAL EXAM General: Alert and oriented in no apparent distress. 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 Patient has her second brachytherapy treatment scheduled on our [facility] on May 02, 2022. Patient reports that she will be receiving IV fluids today after treatment and on May 01, 2022 at [facility]. Patient will continue to take Imodium to manage diarrhea. We will review dilator education at her last management visit. Patient will be seen in weekly management visits through out radiation therapy and will contact uswith any questions or concerns. We will continue with radiation treatment as planned. Signed by: Kari Larkin R.N. 04/29/2022 12:11 PM CDT documented in this encounter Plan of Treatment Upcoming Encounters Date Type Specialty Care Team Description 05/02/2022 Appointment Radiation Oncology Dot Lopez M.D. [address] [place] [phone] 05/05/2022 Appointment Radiation Oncology Judy Mccall M.D. [address] [place] [phone] 05/06/2022 Appointment Radiation Oncology Judy Mccall M.D. [address] [place] [phone] 05/06/2022 Appointment Radiation Oncology Judy Mccall M.D. [address] [place] [phone] 05/07/2022 Appointment Radiation Oncology Judy Mccall M.D. [address] [place] [phone] 05/08/2022 Appointment Radiation Oncology Judy Mccall M.D. [address] [place] [phone] 05/22/2022 Clinical Communication Admitting/Central Scheduling 05/26/2022 Appointment Radiology Merlyn Rose APRN, C.N.P., M.S.N. [address] [place] [phone] 05/27/2022 Office Visit Oncology Merlyn Rose APRN, C.N.P., M.S.N. [address] [place] [phone] Scheduled Orders Name Type Priority Associated Diagnoses Order S chedule Management Visit Radiation Oncology Routine Malignant Neoplasm Once for 1 Of Uterus Occurrences sta rting Endometrial (HCC) 04/29/2022 until 04/29/2022 documented as of this encounter Visit Diagnoses Diagnosis Malignant Neoplasm Of Uterus Endometrial (HCC) documented in this encounter Care Teams Superintendent Plant Protection Relationship Specialty Start Date End Date Elsewhere, Pcp PCP - General Internal Medicine 10/01/21 documented as of this encounter
--- OUTSIDE RECORDS SUMMARY | 2022-05-01 16:10 | XMS_ITS | Encounter Summary ---
:1950 Author Organization [facility] Address [address] [place] [address] Care Team Providers Name Role Phone Elsewhere, Pcp Primary Care Provider Unavailable Encounter Details Date Type Department Care Team Description 04/15/2022 Hospital Encounter Department of Radiation Trent Mccall I., Oncology in [facility] [address] [facility] [address] [place] [address] [phone] Social History Tobacco Use Types Packs/Day Years [...] or relatives? How often do you attend restoration or More than 4 times per year 03/17/2022 anabaptism services? Do you belong to any clubs or Yes 03/17/2022 organizations such as restoration groups, unions, fraternal or athletic groups, or [...] place to sleep or slept in a correction (including now)? Education Answer Date Recorded What is the highest level of school Bachelor's degree (e.g., BA, AB, 07/20/2021 you have completed or the highest BS) degree you have received? 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 [address] [place] [address] [phone] 05/05/2022 Appointment Radiation Oncology Judy Mccall M.D. [address] [place] [address] [phone] 05/06/2022 Appointment Radiation Oncology Judy Mccall M.D. [address] [place] [address] [phone] 05/06/2022 Appointment Radiation Oncology Judy Mccall M.D. [address] [place] [phone] 05/07/2022 Appointment Radiation Oncology Judy Mccall M.D. [address] [place] [address] [phone] 05/08/2022 Appointment Radiation Oncology Judy Mccall M.D. [address] [place] [address] [phone] 05/22/2022 Clinical Communication Admitting/Central Scheduling 05/26/2022 Appointment Radiology Merlyn Rose APRN, C.NLeopoldo, M.S.N. [address] [place] [phone] 05/27/2022 Office Visit Oncology Merlyn Rose APRN, C.NLeopoldo, M.S.N. [address] [place] [phone] documented as of this encounter Visit Diagnoses Not on filedocumented in this encounter Care Teams Negotiations Director Relationship Specialty Start Date End Date Elsewhere, Pcp PCP - General Internal Medicine 10/01/21 documented as of this encounter
--- OUTSIDE RECORDS SUMMARY | 2022-05-01 16:10 | XMS_ITS | Encounter Summary ---
:1950 Author Organization [facility] Address [address] [place] [address] Care Team Providers Name Role Phone Elsewhere, Pcp Primary Care Provider Unavailable Encounter Details Date Type Department Care Team Description 04/17/2022 Hospital Encounter Department of Radiation Trent Mccall I., Oncology in [facility] [address] [facility] [address] [place] [address] [phone] Social History Tobacco Use Types Packs/Day Years [...] or relatives? How often do you attend confucianist or More than 4 times per year 03/17/2022 uatsdin services? Do you belong to any clubs or Yes 03/17/2022 organizations such as confucianist groups, unions, fraternal or athletic groups, or [...] place to sleep or slept in a senior care (including now)? Education Answer Date Recorded What is the highest level of school Bachelor's degree (e.g., BA, AB, 07/20/2021 you have completed or the highest BS) degree you have received? 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 [address] [place] [address] [phone] 05/05/2022 Appointment Radiation Oncology Judy Mccall M.D. [address] [place] [address] [phone] 05/06/2022 Appointment Radiation Oncology Judy Mccall M.D. [address] [place] [address] [phone] 05/06/2022 Appointment Radiation Oncology Judy Mccall M.D. [address] [place] [phone] 05/07/2022 Appointment Radiation Oncology Judy Mccall M.D. [address] [place] [address] [phone] 05/08/2022 Appointment Radiation Oncology Judy Mccall M.D. [address] [place] [address] [phone] 05/22/2022 Clinical Communication Admitting/Central Scheduling 05/26/2022 Appointment Radiology Merlyn Rose APRN, C.NLeopoldo, M.S.N. [address] [place] [phone] 05/27/2022 Office Visit Oncology Merlyn Rose APRN, C.NLeopoldo, M.S.N. [address] [place] [phone] documented as of this encounter Visit Diagnoses Not on filedocumented in this encounter Care Teams Warehouse Stock Clerk Relationship Specialty Start Date End Date Elsewhere, Pcp PCP - General Internal Medicine 10/01/21 documented as of this encounter
--- OUTSIDE RECORDS SUMMARY | 2022-05-01 16:10 | XMS_ITS | Encounter Summary ---
:1950 Author Organization [facility] [place] Address [address] [place] [address] Care Team Providers Name Role Phone Elsewhere, Pcp Primary Care Provider Unavailable Encounter Details Date Type Department Care Team Description 04/29/2022 Hospital Encounter Department of Radiation Trent Mccall I., Oncology in [facility] [address] [facility] [address] [place] [address] [phone] Social History Tobacco Use Types Packs/Day Years [...] or relatives? How often do you attend nondenominational or More than 4 times per year 03/17/2022 anglican services? Do you belong to any clubs or Yes 03/17/2022 organizations such as nondenominational groups, unions, fraternal or athletic groups, or [...] place to sleep or slept in a group home (including now)? Education Answer Date Recorded What is the highest level of school Bachelor's degree (e.g., BA, AB, 07/20/2021 you have completed or the highest BS) degree you have received? 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 [address] [place] [address] [phone] 05/05/2022 Appointment Radiation Oncology Judy Mccall M.D. [address] [place] [address] [phone] 05/06/2022 Appointment Radiation Oncology Judy Mccall M.D. [address] [place] [address] [phone] 05/06/2022 Appointment Radiation Oncology Judy Mccall M.D. [address] [place] [phone] 05/07/2022 Appointment Radiation Oncology Judy Mccall M.D. [address] [place] [address] [phone] 05/08/2022 Appointment Radiation Oncology Judy Mccall M.D. [address] [place] [address] [phone] 05/22/2022 Clinical Communication Admitting/Central Scheduling 05/26/2022 Appointment Radiology Merlyn Rose APRN, C.NLeopoldo, M.S.N. [address] [place] [phone] 05/27/2022 Office Visit Oncology Merlyn Rose APRN, C.NLeopoldo, M.S.N. [address] [place] [phone] documented as of this encounter Visit Diagnoses Not on filedocumented in this encounter Care Teams Store Consultant Relationship Specialty Start Date End Date Elsewhere, Pcp PCP - General Internal Medicine 10/01/21 documented as of this encounter
--- OUTSIDE RECORDS SUMMARY | 2022-05-01 16:10 | XMS_ITS | Encounter Summary ---
:1950 Author Organization [facility] Address [address] [place] [address] Care Team Providers Name Role Phone Elsewhere, Pcp Primary Care Provider Unavailable Encounter Details Date Type Department Care Team Description 04/22/2022 Hospital Encounter Department of Radiation Trent Mccall I., Oncology in [facility] [address] [facility] [address] [place] [address] [phone] Social History Tobacco Use Types Packs/Day Years [...] or relatives? How often do you attend oriental orthodox or More than 4 times per year 03/17/2022 scientology services? 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 [address] [place] [address] [phone] 05/05/2022 Appointment Radiation Oncology Judy Mccall M.D. [address] [place] [address] [phone] 05/06/2022 Appointment Radiation Oncology Judy Mccall M.D. [address] [place] [address] [phone] 05/06/2022 Appointment Radiation Oncology Judy Mccall M.D. [address] [place] [phone] 05/07/2022 Appointment Radiation Oncology Judy Mccall M.D. [address] [place] [address] [phone] 05/08/2022 Appointment Radiation Oncology Judy Mccall M.D. [address] [place] [address] [phone] 05/22/2022 Clinical Communication Admitting/Central Scheduling 05/26/2022 Appointment Radiology Merlyn Rose APRN, C.NLeopoldo, M.S.N. [address] [place] [phone] 05/27/2022 Office Visit Oncology Merlyn Rose APRN, C.NLeopoldo, M.S.N. [address] [place] [phone] documented as of this encounter Visit Diagnoses Not on filedocumented in this encounter Care Teams Integrated Program Teacher Relationship Specialty Start Date End Date Elsewhere, Pcp PCP - General Internal Medicine 10/01/21 documented as of this encounter
--- OUTSIDE RECORDS SUMMARY | 2022-05-01 16:10 | XMS_ITS ---
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 10/03/2021 Allergy Penicillin Antibiotic Personal History 022 Morbid Obesity Body Mass Index >= 35 with Comorbid Con dition 09/16/2021 Chronic Cough 09/16/2021 Malignant Neoplasm Of Uterus Endometrial 09/05/2021 Overview: Added automatically from request for alin beau [id number] Gastroesophageal Reflux Disease NOS 08/29/2021 Morbid Obesity 05/28/2016 Asthma Mild Persistent 08/07/2011 Loss Hearing Sensorineural Bilateral 09/27/2008 Anxiety Generalized Disorder 09/15/2006 Bronchospasm Acute 09/15/2006 Depression Major One Episode Mild 09/15/2006 Sleep Apnea 09/15/2006 Rhinitis Chronic 09/15/2006 Other Psoriasis 09/15/2006 Neutropenia Chemotherapy Induced Current Oncology Plans HYDRATIONPlan Start Date:04/23/2022 Plan Provider:Judy Mccall M.D. Linked Problems Malignant Neoplasm Of Uterus Endometrial (HCC)Dehydration Treatment Medications No medications scheduled. 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 Other Current Plans HYDRATIONPlan Start Date:12/04/2021 Plan Provider:Klampe, Merlyn M, AIRPORT MAINTENANCE CHIEF, C.N.P., M.S.N. Linked Problems Dehydration Treatment Medications No medications scheduled. Past Plans Hematology / Oncology Treatment 1 Plan Name Start Discontinue Treatment Discontinue Plan Cycles Date Date Medications Reason Provider CARBOplatin 03/20/2022 CARBOplatin Therapy Klampe, 6 of 6 AUC 6 / 2 (PARAPLATIN)CA Complete Merlyn Sam, cycl es PACLitaxel ( RBOplatin AIRPORT MAINTENANCE CHIEF, started SECONDS INSPECTOR ) (PARAPLATIN) C.N.P., IVPB (BY AUC) M.S.N. in 250 mL (PARAPLATIN)PA CLitaxel (TAXOL)PACLIta xel (TAXOL) IVPB in 250 mL (TAXOL)PACLIta xel (TAXOL) IVPB in 500 mL (TAXOL) Radiation Treatments Plan Last Treated Elapsed Days Fractions Prescribed Prescribed Total On Treated Fraction Dose Dose [id number] 05/01/2022 31 21 of 25 180 cGy 4,500 cGy [id number] 04/28/2022 0 1 of 2 500 cGy 1,000 cGy Reference Point Last Treated On Elapsed Days Session Dose Total Dos e dpv 4500x 05/01/2022 31 180 cGy 3,780 cGy HDR DPV 04/28/2022 0 500 cGy 500 cGy
--- OUTSIDE RECORDS SUMMARY | 2022-05-01 16:10 | XMS_ITS | Encounter Summary ---
:1950 Author Organization [facility] Address [address] [place] [address] Care Team Providers Name Role Phone Elsewhere, Pcp Primary Care Provider Unavailable Encounter Details Date Type Department Care Team Description 04/29/2022 Orders Only [facility] [place], [place] Burak CALLE, M.S.N. [address] [facility] [address] [place] [address] [place], [place] [phone] (Wo rk) Social History Tobacco Use Types Packs/Day Years [...] or relatives? How often do you attend zoroastrianism or More than 4 times per year 03/17/2022 christianity services? Do you belong to any clubs or Yes 03/17/2022 organizations such as zoroastrianism groups, unions, fraternal or athletic groups, or [...] to pay for the very basics like [employer] hat hard 03/17/2022 food, housing, medical care, [...] place to sleep or slept in a penitentiary (including now)? Education Answer Date Recorded What is the highest level of school Bachelor's degree (e.g., BA, AB, 07/20/2021 you have completed or the highest BS) degree you have received? 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 [address] [place] [address] [phone] 05/05/2022 Appointment Radiation Oncology Judy Mccall M.D. [address] [place] [address] [phone] 05/06/2022 Appointment Radiation Oncology Judy Mccall M.D. [address] [place] [address] [phone] 05/06/2022 Appointment Radiation Oncology Judy Mccall M.D. [address] [place] [address] [phone] 05/07/2022 Appointment Radiation Oncology Judy Mccall M.D. [address] [place] [address] [phone] 05/08/2022 Appointment Radiation Oncology Judy Mccall M.D. [address] [place] [phone] 05/22/2022 Clinical Communication Admitting/Central Scheduling 05/26/2022 Appointment Radiology Merlyn Rose APRN, C.N.P., M.S.N. [address] [place] [phone] 05/27/2022 Office Visit Oncology Merlyn Rose APRN, C.N.P., M.S.N. [address] [place] [phone] documented as of this encounter Visit Diagnoses Not on filedocumented in this encounter Care Teams Communications Programmer Relationship Specialty Start Date End Date Elsewhere, Pcp PCP - General Internal Medicine 10/01/21 documented as of this encounter
--- NOTE | 2022-05-01 16:11 | ED_ITS ---
HPI - Syncope General Chief Complaint: Syncope/Fainted Stated Complaint: Near synchopal Time Seen by Provider: 05/01/22 15:59 History of Present Illness HPI narrative: This 71-year-old female comes in to be checked after having brief syncopal episode prior to arrival. She did bump her head but does not complain of a headache. She is on anticoagulants. She was in the infusion clinic today and finished an infusion of fluids. After getting up and into the bathroom she became lightheaded and had brief loss of consciousness. She is undergoing radiation currently but is not taking chemotherapy. She finished chemotherapy treatments about 3 or 4 months ago. She states that her labs have been reassuring in this process. She feels back to normal at this time. She does report some episodes of feeling lightheaded. She is not on any antihypertensive medicines. Related Data Home Medications Medication Instructions Recorded Confirmed albuterol sulfate 2.5 mg/3 mL 5 mg continuous nebulization PRN 02/18/22 (0.083 %) solution for nebulization apixaban 5 mg tablet (Eliquis) 5 mg PO BID 02/18/22 05/01/22 calcium carbonate 600 mg-vitamin 1 cap PO BID 02/18/22 05/01/22 D3 10 mcg (400 unit) capsule cetirizine 10 mg capsule 10 mg PO DAILY PRN 02/18/22 05/01/22 cholecalciferol (vitamin D3) 25 1,000 unit PO DAILY 02/18/22 05/01/22 mcg (1,000 unit) capsule (Vitamin D3) cranberry 400 mg capsule 400 mg PO BID 02/18/22 05/01/22 ferrous sulfate 325 mg (65 mg 325 mg PO .QOD 02/18/22 05/01/22 iron) tablet (iron) fluticasone propionate 50 1 spray intranasal DAILY 02/18/22 05/01/22 mcg/actuation nasal spray,suspension lorazepam 0.5 mg tablet 0.5 mg PO Q4H PRN 02/18/22 05/01/22 montelukast 10 mg tablet 10 mg PO DAILY 02/18/22 05/01/22 omeprazole 20 mg capsule,delayed 20 mg PO DAILY 02/18/22 05/01/22 release ondansetron HCl 8 mg tablet 8 mg PO Q8H PRN 02/18/22 05/01/22 prochlorperazine maleate 10 mg 10 mg PO Q6H PRN 02/18/22 05/01/22 tablet sertraline 100 mg tablet 100 mg PO DAILY 02/18/22 05/01/22 Allergies Allergy/AdvReac Type Severity Reaction Status Date / Time diclofenac Allergy Intermediate Hives Verified 05/01/22 14:00 amoxicillin Allergy Mild Nausea Verified 05/01/22 14:00 clavulanic acid Allergy Mild Nausea Verified 05/01/22 14:00 sulfa Allergy Mild Rash Uncoded 01/27/22 15:32 Review of Systems Status of ROS: Reports: 10 or more systems reviewed and unremarkable except as noted in History and below Narrative: Constitutional: No fevers, no weight gain or loss. Eyes: No discharge. No vision changes. HENT: No congestion, no sore throat, no ear pain. Cardiovascular: No chest pain, no palpitations. Respiratory: No shortness of breath, no wheezes, no cough. Gastrointestinal: No abdominal pain, no vomiting, no diarrhea. Genitourinary: No dysuria, no hematuria. Musculoskeletal: Normal range of motion. Skin: No rashes, no pruritis. Neurological: No weakness, sensory change, speech change. Syncope with prodrome. Endo/Heme/Allergies: No bruising or bleeding. No polydipsia. Pysch: no suicidality, no anxiety, no insomnia. All other systems reviewed and are negative. Exam Narrative: Exam Narrative: Constitutional: Well-developed, well-nourished, no acute distress. HEENT: Normocephalic, atraumatic. Neck: Normal range of motion. Nontender. Supple. Heart: Regular. No murmurs. Normal rate. Intact distal pulses. Lungs: Clear to auscultation. No chest discomfort. No wheezes, rhonchi, or rales. Abdomen: Normal bowel sounds. Nontender. No rebound tenderness. Genitalia: Deferred. Back: No midline tenderness. Normal range of motion. Extremities: Normal range of motion. No injury. Skin: Intact. No rash. Warm. No erythema or pallor. Neurologic: No altered sensation. No weakness. Alert and oriented. Psychiatric: No suicidality. No anxiety or depression. No insomnia. Nursing notes and vitals signs are reviewed. Const: Vital Signs, click to edit/add: Vital Signs - 24 hr 05/01/22 15:23 Pulse Rate [Left P ulse Oximeter] 66 Respiratory Rate 16 Blood Pressure [Le ft Upper Arm] 114/59 L Pulse Oximetry 96 Oxygen Delivery Me thod Room Air Course Vital Signs Vital signs: Initial Vital Signs Pulse Rate 66 05/01/22 15:23 Pulse Rhythm 05/01/22 15:23 Respiratory Rate 16 05/01/22 15:23 Blood Pressure 114/59 L 05/01/22 15:23 Blood Pressure Mean 77 05/01/22 15:23 Blood Pressure Position Sitting 05/01/22 15:23 Pulse Oximetry 96 05/01/22 15:23 Oxygen Delivery Method 05/01/22 15:23 Vital Signs Pulse Rate 66 05/01/22 15:23 Respiratory Rate 16 05/01/22 15:23 Blood Pressure 114/59 L 05/01/22 15:23 Pulse Oximetry 96 05/01/22 15:23 Oxygen Delivery Method 05/01/22 15:23 Pulse Rate 66 05/01/22 15:23 Respiratory Rate 16 05/01/22 15:23 Blood Pressure 114/59 L 05/01/22 15:23 Pulse Oximetry 96 05/01/22 15:23 Oxygen Delivery Method 05/01/22 15:23 MDM - Syncope MDM Narrative Medical decision making narrative: This patient comes in reporting a syncopal event where she did bump her head. She is on blood thinners but complains of no new symptoms. She feels back to normal and does not have a headache. She did not have any other injury. She has normal vital signs. CT scan of the head was acquired and shows no acute intracranial abnormalities. The patient is okay to be discharged home to continue current plans. Imaging Data CT scan - head: Radiologist's impression: No acute intracranial process per unenhanced head CT Discharge Plan Discharge Clinical Impression: Syncope Patient Disposition: Home, Self-Care Condition: Stable Additional Instructions: Continue current plans. Follow up with MD or return if worsening symptoms happen. Prescriptions: No Action sertraline 100 mg tablet 100 mg PO DAILY Label Comments: TAKE ONE TABLET BY MOUTH EVERY DAY montelukast 10 mg tablet 10 mg PO DAILY Label Comments: TAKE ONE TABLET BY MOUTH AT BEDTIME fluticasone propionate 50 mcg/actuation spray,suspension 1 spray INTRANASAL DAILY Eliquis 5 mg tablet 5 mg PO BID cholecalciferol (vitamin D3) [Vitamin D3] 25 mcg (1,000 unit) capsule 1,000 unit PO DAILY calcium carbonate-vitamin D3 600 mg-10 mcg (400 unit) capsule 1 cap PO BID cetirizine 10 mg capsule 10 mg PO DAILY PRN omeprazole 20 mg capsule,delayed release(DR/EC) 20 mg PO DAILY ferrous sulfate [iron] 325 mg (65 mg iron) tablet 325 mg PO .QOD cranberry 400 mg capsule 400 mg PO BID Rx Instructions: administer with meals albuterol sulfate 2.5 mg /3 mL (0.083 %) solution for nebulization 5 mg continuous nebulization PRN Label Comments: INHALE 3 ML VIA A NEBULIZER EVERY 4 HOURS NEEDED FOR COUGH OR WHEEZING lorazepam 0.5 mg tablet 0.5 mg PO Q4H PRN Label Comments: TAKE ONE TABLET BY MOUTH EVERY 8 HOURS NEEDED FOR NAUSEA AND VOMITING FOR UP TO 30 DOSES prochlorperazine maleate 10 mg tablet 10 mg PO Q6H PRN Label Comments: TAKE ONE TABLET BY MOUTH EVERY 6 HOURS NEEDED FOR NAUSEA AND VOMITING ondansetron HCl 8 mg tablet 8 mg PO Q8H PRN Label Comments: TAKE ONE TABLET BY MOUTH EVERY 8 HOURS NEEDED FOR NAUSEA AND VOMITING Follow Up/Referrals: Provider,Not a Local [Primary Care Provider] - Stand Alone Forms: [employer] Info Instructions
--- OUTSIDE RECORDS SUMMARY | 2022-05-01 16:11 | XMS_ITS | Encounter Summary ---
:1950 Author Organization [facility] Address [address] [place] [address] Care Team Providers Name Role Phone Elsewhere, Pcp Primary Care Provider Unavailable Reason for Referral Radiation Therapy (Routine) - Authorized Specialty Diagnoses / Procedures Referred By Contact Refer red To Contact Diagnoses Malignant Neoplasm Of Uterus Endometrial (HCC) Judy Mccall M.D. [facility] Procedures Management Visit [address] [place] [phone] Referral ID Status Reason Start Date Expiration Date Visits V isits Requested Authorized [id number] Authorized 03/27/2022 03/27/2023 8 8 Reason for Visit Radiation Therapy (Routine) - Authorized Specialty Diagnoses / Procedures Referred By Contact Refer red To Contact Diagnoses Malignant Neoplasm Of Uterus Endometrial (HCC) Judy Mccall M.D. [facility] Procedures Management Visit [address] [place] [phone] Referral ID Status Reason Start Date Expiration Date Visits V isits Requested Authorized [id number] Authorized 03/27/2022 03/27/2023 8 8 Encounter Details Date Type Department Care Team Description 04/01/2022 Hospital Encounter Department of Judy Mccall Neoplasm Radiation Oncology Brady Etienne Of Uterus in [place], [address] [facility] Endometrial (HCC) [place], [place] [address] [facility] [address] [place], [place] [phone] (Work) [phone] Social History Tobacco Use Types Packs/Day Years [...] or relatives? How often do you attend congregation or More than 4 times per year 03/17/2022 hinduism services? Do you belong to any clubs or Yes 03/17/2022 organizations such as congregation groups, unions, fraternal or athletic groups, or [...] place to sleep or slept in a assisted (including now)? Education Answer Date Recorded What is the highest level of school Bachelor's degree (e.g., BA, AB, 07/20/2021 you have completed or the highest BS) degree you have received? 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 calcium carbonate Take 1 tablet by 0 [...] a day. Nasal irrigation before triple spray apixaban (ELIQUIS) 5 mg Take 2 tablets (10 392 tablet 0 03/0 01/202204/15/2022 tablet mg total) by mouth 2 (two) times a day for 8 days, THEN 1 tablet (5 mg total) 2 (two) times a day. documented as of this encounter Progress Notes Judy Mccall M.D. - 04/01/2022 9:45 AM CDT Diagnosis: Endometrial cancer Radiation Treatment Progress Summary Treatment Course: 1xPelvisPA Plan ID Fractions Dose / Fraction (cGy) Dose Treated (cGy) Dose Planned (cGy) First Treatment Last Treatment Elapsed Days [id number] [phone] 03/31/2022 03/31/2022 0 Course Summary 03/31/2022 03/31/2022 0 SUBJECTIVE Nelda Pavon a 71 y.o. reports that she feels well with no complaints. She did not have nausea after the treatment yesterday, but did take the pre- treatment Zofran. She states that when she was going to bed, she wasn't sure if she didn't feel well or not or if it was nerves. She did not take moreanti- emetics and went to bed with no difficulty in the night. She awoke with no nausea. She has no pain or change in her baseline fatigue (1 on a 0-10 scale). OBJECTIVE BP 136/72 (BP Location: Right arm, Patient Position: Sitting, Cuff Size: Small) Pulse 61 Temp 36.5 ??C (Temporal) Wt 90.1 kg BMI 32.99 kg/m?? PHYSICAL EXAM General appearance: alert, appears stated age, cooperative, and no distress ASSESSMENT / PLAN #1 FIGO Stage IIIC 2 serous endometrial adenocarcinoma, s/p surgery and chemotherapy #2 Soft tissue enhancing nodule on the bladder dome #3 External beam radiotherapy, initiated on March 31, 2022, anticipated completion date is May 07, 2022 The patient is tolerating radiotherapy well. She will continue with her pre- treatment anti-emetics and knows that she can take more as directed if needed. We will continue as planned. Signed by: Judy Mccall M.D. 04/01/2022 11:27 AM CDT documented in this encounter Plan of Treatment Upcoming Encounters Date Type Specialty Care Team Description 05/02/2022 Appointment Radiation Oncology Dot Lopez M.D. [address] [place] [phone] 05/05/2022 Appointment Radiation Oncology Judy Mccall M.D. [address] [place] [phone] 05/06/2022 Appointment Radiation Oncology Judy Mccall M.D. [address] [place] [phone] 05/06/2022 Appointment Radiation Oncology Judy Mccall M.D. [address] [place] [phone] 05/07/2022 Appointment Radiation Oncology Judy Mccall M.D. [address] [place] [phone] 05/08/2022 Appointment Radiation Oncology Judy Mccall M.D. [address] [place] [phone] 05/22/2022 Clinical Communication Admitting/Central Scheduling 05/26/2022 Appointment Radiology Merlyn Rose APRN, C.N.P., M.S.N. [address] [place] [phone] 05/27/2022 Office Visit Oncology Merlyn Rose APRN C.N.P., M.S.N. [address] [place] [phone] Scheduled Orders Name Type Priority Associated Diagnoses Order S chedule Management Visit Radiation Oncology Routine Malignant Neoplasm Once for 1 Of Uterus Occurrences sta rting Endometrial (HCC) 04/01/2022 until 04/01/2022 documented as of this encounter Visit Diagnoses Diagnosis Malignant Neoplasm Of Uterus Endometrial (HCC) documented in this encounter Care Teams Industrial Maintenance Mechanic Relationship Specialty Start Date End Date Elsewhere, Pcp PCP - General Internal Medicine 10/01/21 documented as of this encounter
--- OUTSIDE RECORDS SUMMARY | 2022-05-01 16:11 | XMS_ITS | Encounter Summary ---
:1950 Author Organization [facility] Address [address] [place] [address] Care Team Providers Name Role Phone Elsewhere, Pcp Primary Care Provider Unavailable Encounter Details Date Type Department Care Team Description 04/01/2022 Hospital Encounter Department of Radiation Trent Mccall I., Oncology in [facility] [address] [facility] [address] [place] [address] [phone] Social History Tobacco Use Types Packs/Day Years [...] or relatives? How often do you attend moravian or More than 4 times per year 03/17/2022 rastafari services? Do you belong to any clubs or Yes 03/17/2022 organizations such as moravian groups, unions, fraternal or athletic groups, or [...] place to sleep or slept in a nursing home (including now)? Education Answer Date Recorded What is the highest level of school Bachelor's degree (e.g., BA, AB, 07/20/2021 you have completed or the highest BS) degree you have received? 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 [address] [place] [address] [phone] 05/05/2022 Appointment Radiation Oncology Judy Mccall M.D. [address] [place] [address] [phone] 05/06/2022 Appointment Radiation Oncology Judy Mccall M.D. [address] [place] [address] [phone] 05/06/2022 Appointment Radiation Oncology Judy Mccall M.D. [address] [place] [phone] 05/07/2022 Appointment Radiation Oncology Judy Mccall M.D. [address] [place] [address] [phone] 05/08/2022 Appointment Radiation Oncology Judy Mccall M.D. [address] [place] [address] [phone] 05/22/2022 Clinical Communication Admitting/Central Scheduling 05/26/2022 Appointment Radiology Merlyn Rose APRN, C.NLeopoldo, M.S.N. [address] [place] [phone] 05/27/2022 Office Visit Oncology Merlyn Rose APRN, C.NLeopoldo, M.S.N. [address] [place] [phone] documented as of this encounter Visit Diagnoses Not on filedocumented in this encounter Care Teams Software Engineer Sales Relationship Specialty Start Date End Date Elsewhere, Pcp PCP - General Internal Medicine 10/01/21 documented as of this encounter
--- OUTSIDE RECORDS SUMMARY | 2022-05-01 16:11 | XMS_ITS | Encounter Summary ---
:[address] [facility] Address [address] [place] [address] Care Team Providers Name Role Phone Elsewhere, Pcp Primary Care Provider Unavailable Reason for Referral Radiation Therapy (Routine) - Authorized Specialty Diagnoses / Procedures Referred By Contact Refer red To Contact Diagnoses Malignant Neoplasm Of Uterus Endometrial (HCC) Dot Lopez M.D. [facility] Procedures Brachytherapy HDR [address] [place], [place] [phone] Referral ID Status Reason Start Date Expiration Date Visits V isits Requested Authorized [id number] Authorized 03/21/2022 03/21/2023 2 2 Encounter Details Date Type Department Care Team Description 03/21/2022 Orders Only Department of Mariluz Marshall Malignant Neoplasm Of Radiation Oncology in A, GEAR CHANGER, C.N.P., Ut erus Endometrial [place], [place] D.N.PYi (HCC) (Primary Dx) [address] [facility] [address] [place] [phone] Social History Tobacco Use Types Packs/Day Years [...] or relatives? How often do you attend sabianism or More than 4 times per year 03/17/2022 muslim services? Do you belong to any clubs or Yes 03/17/2022 organizations such as sabianism groups, unions, fraternal or athletic groups, or [...] place to sleep or slept in a intermediate (including now)? Education Answer Date Recorded What is the highest level of school Bachelor's degree (e.g., BA, AB, 07/20/2021 you have completed or the highest BS) degree you have received? 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 [address] [place] [phone] 05/05/2022 Appointment Radiation Oncology Judy Mccall M.D. [address] [place] [address] [phone] 05/06/2022 Appointment Radiation Oncology Judy Mccall M.D. [address] [place] [phone] 05/06/2022 Appointment Radiation Oncology Judy Mccall M.D. [address] [place] [phone] 05/07/2022 Appointment Radiation Oncology Judy Mccall M.D. [address] [place] [phone] 05/08/2022 Appointment Radiation Oncology Judy Mccall M.D. [address] [place] [phone] 05/22/2022 Clinical Communication Admitting/Central Scheduling 05/26/2022 Appointment Radiology Merlyn Rose APRN, C.N.PYi, M.S.N. [address] [place] [phone] 05/27/2022 Office Visit Oncology Merlyn Rose APRN C.N.P., M.S.N. [address] [place] [phone] documented as of this encounter Results Brachytherapy HDR (04/28/2022 9:00 [...] rate ?? Treatment Sites: ??Vaginal cuff Applicator(s): ??Gooding applicator Image-Guidance: CT ?? Brachytherapy Fraction Number: [...] [facility] and placed on the table in the dorsal lithotomy position. ??On exam ination, the vaginal cuff was well-healed and there was no evidence of dehiscence. After serial dilation of the vagina, a multi-channel Gooding tylor licator with a 30 mm sleeve [...] fraction. She will continue with EBRT in [place] as scheduled. Dot Lopez M.D. RADIATION ONCOLOGY ORDERABLE S Performing Organization Address City/State/ZIP Code Phon e Number [facility] documented in this encounter Visit Diagnoses Diagnosis Malignant Neoplasm Of Uterus Endometrial (HCC) - Primary Malignant Neoplasm Of Uterus Endometrial (HCC) documented in this encounter Care Teams Practical Nurse Relationship Specialty Start Date End Date Elsewhere, Pcp PCP - General Internal Medicine 10/01/21 documented as of this encounter
--- OUTSIDE RECORDS SUMMARY | 2022-05-01 16:11 | XMS_ITS | Encounter Summary ---
:1950 Author Organization [facility] Address [address] [place] [address] Care Team Providers Name Role Phone Elsewhere, Pcp Primary Care Provider Unavailable Encounter Details Date Type Department Care Team Description 04/04/2022 Hospital Encounter Department of Radiation Trent Mccall I., Oncology in [facility] [address] [facility] [address] [place] [address] [phone] Social History Tobacco Use Types Packs/Day Years [...] More than 4 times per year 03/17/2022 lutheran services? Do you belong to any clubs [...] place to sleep or slept in a alf (including now)? Education Answer Date Recorded What is the highest level of school Bachelor's degree (e.g., BA, AB, 07/20/2021 you have completed or the highest BS) degree you have received? 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 [address] [place] [address] [phone] 05/05/2022 Appointment Radiation Oncology Judy Mccall M.D. [address] [place] [address] [phone] 05/06/2022 Appointment Radiation Oncology Judy Mccall M.D. [address] [place] [address] [phone] 05/06/2022 Appointment Radiation Oncology Judy Mccall M.D. [address] [place] [phone] 05/07/2022 Appointment Radiation Oncology Judy Mccall M.D. [address] [place] [address] [phone] 05/08/2022 Appointment Radiation Oncology uJdy Mccall M.D. [address] [place] [address] [phone] 05/22/2022 Clinical Communication Admitting/Central Scheduling 05/26/2022 Appointment Radiology Merlyn Rose APRN, C.NLeopoldo, M.S.N. [address] [place] [phone] 05/27/2022 Office Visit Oncology Merlyn Rose APRN, C.NLeopoldo, M.S.N. [address] [place] [phone] documented as of this encounter Visit Diagnoses Not on filedocumented in this encounter Care Teams Straight Truck Driver Relationship Specialty Start Date End Date Elsewhere, Pcp PCP - General Internal Medicine 10/01/21 documented as of this encounter
--- OUTSIDE RECORDS SUMMARY | 2022-05-01 16:11 | XMS_ITS | Encounter Summary ---
:1950 Author Organization [facility] Address [address] [place] [address] Care Team Providers Name Role Phone Elsewhere, Pcp Primary Care Provider Unavailable Encounter Details Date Type Department Care Team Description 04/02/2022 Hospital Encounter Department of Radiation Trent Mccall I., Oncology in [facility] [address] [facility] [address] [place] [address] [phone] Social History Tobacco Use Types Packs/Day Years [...] or relatives? How often do you attend taoist or More than 4 times per year 03/17/2022 restoration services? 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 [address] [place] [address] [phone] 05/05/2022 Appointment Radiation Oncology Judy Mccall M.D. [address] [place] [address] [phone] 05/06/2022 Appointment Radiation Oncology Judy Mccall M.D. [address] [place] [address] [phone] 05/06/2022 Appointment Radiation Oncology Judy Mccall M.D. [address] [place] [phone] 05/07/2022 Appointment Radiation Oncology Judy Mccall M.D. [address] [place] [address] [phone] 05/08/2022 Appointment Radiation Oncology Judy Mccall M.D. [address] [place] [address] [phone] 05/22/2022 Clinical Communication Admitting/Central Scheduling 05/26/2022 Appointment Radiology Merlyn Rose APRN, C.NLeopoldo, M.S.N. [address] [place] [phone] 05/27/2022 Office Visit Oncology Merlyn Rose APRN, C.NLeopoldo, M.S.N. [address] [place] [phone] documented as of this encounter Visit Diagnoses Not on filedocumented in this encounter Care Teams Computer Engineering Technologist Relationship Specialty Start Date End Date Elsewhere, Pcp PCP - General Internal Medicine 10/01/21 documented as of this encounter
--- OUTSIDE RECORDS SUMMARY | 2022-05-01 16:11 | XMS_ITS | Encounter Summary ---
:1950 Author Organization [facility] Address [address] [place] [id number] Care Team Providers Name Role Phone Elsewhere, Pcp Primary Care Provider Unavailable Reason for Referral Outpatient (Routine) - Closed Specialty Diagnoses / Procedures Referred By Contact Refer red To Contact Radiation Oncology Diagnoses Malignant Neoplasm Of Uterus Endometrial (HCC) Dot Lopez [place] M.D. [address] [place] [address] Referral ID Status Reason Start Date Expiration Date Visits Requ ested Visits Authorized [id number] Closed 03/20/2022 03/20/2023 1 1 Scheduling Instructions First day of treatment please! Reason for Visit Outpatient (Routine) - Closed Specialty Diagnoses / Procedures Referred By Contact Refer red To Contact Radiation Oncology Diagnoses Malignant Neoplasm Of Uterus Endometrial (HCC) Dot Lopez [place] M.D. [address] [place] [address] Referral ID Status Reason Start Date Expiration Date Visits Requ ested Visits Authorized [id number] Closed 03/20/2022 03/20/2023 1 1 Encounter Details Date Type Department Care Team Description 03/31/2022 Hospital Encounter Department of Judy Mccall Neoplasm Radiation Oncology Brady Etienne Of Uterus in [place], [address] [facility] Endometrial (HCC) [place], [place] [address] [facility] [address] [place], [place] [phone] (Work) [phone] Social History Tobacco Use Types Packs/Day Years [...] or relatives? How often do you attend hinduism or More than 4 times per year 03/17/2022 congregational services? Do you belong to any clubs or Yes 03/17/2022 organizations such as hinduism groups, unions, fraternal or athletic groups, or [...] at Date Recorded Female 07/20/2021 9:20 PM REAL ESTATE TRANSACTION COORDINATOR documented as of this encounter Last Filed Vital Signs Vital Sign Reading Time Taken Comments Blood Pressure 156/86 03/31/2022 10:53 AM CDT Pulse 68 03/31/2022 10:53 AM CDT Temperature 36.3 ??C (97.3 ??F) 03/31/2022 10:53 AM CDT Respiratory Rate - - Oxygen Saturation - - Inhaled Oxygen Concentration - - Weight 90.8 kg (200 lb 2.8 oz) 03/31/2022 10:53 AM CDT Height - - Body Mass Index 33.23 03/20/2022 1:44 PM CDT documented in this [...] a day. documented as of this encounter Consult Notes Judy Mccall M.D. - 03/31/2022 11:00 AM CDT RADIATION ONCOLOGY CONSULTATION SUBJECTIVE REQUESTING PROVIDER Dot Lopez M.D., Radiation Oncology [place] REASON FOR CONSULT Asked to see patient by Dr. Lopez to help facilitate radiation therapy here in [place] after being simulated and planned in [place]. HISTORY OF PRESENT ILLNESS #1 Endometrial adenocarcinoma Ms. Pavon is a very pleasant 71 year old female with an endometrial cancer who has received chemotherapy and is about to begin adjuvant radiotherapy with a brachytherapy boost. Her oncologic history was reviewed with the patient and her best friend and is as follows: Oncology History Malignant Neoplasm Of Uterus Endometrial (HCC) Genetic Testing and Tumor Genotyping IHC: Normal expression of MLH1, MSH2, MSH6, and PMS2 HER2 negative Negative germline genetic testing in 2021; Breast and Sheep Rancher + Colorectal Cancers panel through [facility]. 08/12/2021 Initial Diagnosis Began experiencing PMB in April. Endometrial biopsies in May and July [address] were [address] abdomen and pelvis: IMPRESSION: 1. 6.2 cm mass replacement of endometrium and myometrium is very likely endometrial carcinoma. 2. Periuterine fat infiltration and nodular tissue posterior to the left ovary are suspicious for tumor infiltration, though could be post procedure change. 3. Lymph nodes including malignant lymph node in the retroperitoneal left periaortic region. Suspicious lymph nodes along the left external and internal iliac vessels. 08/29/2021 Other PET/CT: IMPRESSION: 1. Intense FDG activity within suspected endometrial carcinoma, with right iliac, left periaortic tea metastases and suspected infiltration into adjacent fat posteriorly and along the left adnexa. 2. Indeterminate mild activity in a few mildly enlarged left iliac lymph nodes. 09/04/2021 Other Pelvic MRI: IMPRESSION: 1. Large 7 cm endometrial mass. Given its imaging findings and PET avidity this is most suggestive of an endometrial carcinoma. There is involvement of the cervix however no vaginal extension is identified. Questionable extension of the tumor into the left adnexa. Enlarged right iliac lymph node and as well as partially imaged left retroperitoneal para aortic lymph nodes are suspicious for tea metastases. Stage IIIC2 disease. 10/01/[address] Jessy Pineda: Robotic exploration with abdominal hysterectomy, bilateral salpingo- oophorectomy, pelvic and periaortic lymphadenectomy and omentectomy 10/01/2021 Biopsy/Pathology Stage IIIC2 serous carcinoma 7 cm mass involving anterior and posterior endometrium and invading through the myometrial thickness(2.2 cm) into the serosa. Lymphovascular invasion is identified. Fallopian tubes and left ovary are uninvolved. One right pelvic node, 1 left external iliac node, and 1 left periaortic node are positive. Sigmoid nodule also positive. 10/02/[address] chest angiogram: IMPRESSION: 1. Positive for right-sided segmental acute pulmonary emboli. 2. Atelectasis in the lung bases. 3. Cardiomegaly with small pericardial effusion. 10/22/2021 - 02/19/2022 Chemotherapy 6 cycles of chemotherapy. Dose reductions due to neutropenia and peripheral neuropathy. CARBOplatin AUC 6 / PACLitaxel ( SALVAGE CUTTER ) Start Date: 10/22/2021 03/31/2022 - Radiation Therapy Radiation Therapy Treatment Details (Noted on 03/18/2022) Site: Not Applicable Pelvis Technique: IMRT Goal: Curative Planned Treatment Start Date: 03/31/2022 INTERVAL HISTORY The patient reports that she is nervous, but doing well. She has not noticed any more vaginal bleeding or discharge. She does have some peripheral neuropathy in her feet, but states this is improving. She uses a chair in the shower, but otherwise is caring for herself. She notes no abdominal pain, change in bowel function or bladder function. She denies blood in urine or stool. She has no pain. The patient denies a history of prior radiation therapy or connective tissue disorders. Her ECOG performance status is 1. REVIEW OF SYSTEMS Review of systems was negative except as documented above. PATIENT REPORTED SYMPTOM SCREEN FATIGUE (Scale: 0 = no fatigue; 10 = worst fatigue you can imagine): 1 PAIN (Scale: 0 = no pain; 10 = worst pain you can imagine): 0 OVERALL QUALITY OF LIFE (Scale: 0 = as bad as can be; 10 = as good as can be): 5 ALLERGIES, MEDICATIONS, PAST MEDICAL HISTORY, PAST SURGICAL HISTORY, SOCIAL HISTORY AND FAMILY HISTORY PER [facility] EMR; These were reviewed. Pertinent or notable findings are the following: Multiple medical problems including her endometrial cancer as per HPI. Her mother and maternal grandmother had colon cancer; a paternal grandmother had breast cancer. She is with 2 adopted children and 3 grandchildren. 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 OBJECTIVE BP 156/86 (BP Location: Right arm, Patient Position: Sitting, Cuff Size: Small) Pulse 68 Temp 36.3 ??C (Temporal) Wt 90.8 kg BMI 33.23 kg/m?? PHYSICAL EXAM General: Well-developed, well-nourished and in no apparent distress. Lymph: No palpable cervical, supraclavicular, infraclavicular, or inguingal adenopathy. Spine: There is no tenderness to palpation of the spine. Lungs: Clear to auscultation bilaterally. Heart: Regular rate and rhythm. Abdomen: Soft, non-tender, non-distended. Normal active bowel sounds are present. Well healed midline incision. Extremities: No clubbing, cyanosis, or edema. DIAGNOSTICS I have reviewed the available imaging, operative and pathology reports as described above. I have reviewed her CT imaging from March 20, 2022 that shows small soft tissue enhancing nodule onthe bladder dome, suspicious for intraperitoneal recurrence. ASSESSMENT / PLAN #1 FIGO Stage IIIC 2 serous endometrial adenocarcinoma, s/p surgery and chemotherapy #2 Soft tissue enhancing nodule on the bladder dome #3 External beam radiotherapy, initiated on March 31, 2022, anticipated completion date is May 07, 2022 We discussed the findings above and below in this note with the patient and her friend She had already discussed her treatment alternatives with Dr. Lopez. The plan is for EBRT in [place] with two brachytherapy vaginal cuff treatments in [place]. We discussed the soft tissue nodule on the bladderdome. We discussed our team approach. We reviewed the rationale, risks, side effects and curative goals of radiation therapy. We discussedthe acute as well as group home risks from EBRT, including, but not limited to fatigue, nausea, diarrhea, bowel/bladder changes (including small bowel obstruction and bowel changes), vaginal or urethralstenosis, and secondary malignacies. I explained vaginal cuff brachytherapy. They understood and their questions were answered. She wished to proceed with treatment. We tentatively plan on delivering 4500 cGy in 25 fractions starting today. She understands that she will not have her EBRT on her brachytherapy days. I provided her with one Zofran track production engineer now prior to her treatment today. She will take either Compazine or Zofran that she has at home pre-treatment tomorrow. My thanks to Ms. Merlyn Rose, PLAYER DEVELOPMENT EXECUTIVE, BANK SALES AND SERVICE MANAGER, MSN, Malini, and Mayi for the opportunity to participate in this patient's care. EDUCATION Ready to learn, no apparent learning barriers were identified; learning preferences include listening. Explained diagnosis and treatment plan; patient expressed understanding of the content. CONSENT Discussed the risks, benefits, alternatives, and the necessity of other members of the healthcare team participating in the procedure. All questions answered and consent given. I personally spent 30 minutes in care of the patient today. Time includes both non face to face and face to face patient care. Signed by: Judy Mccall M.D. 03/31/2022 11:54 AM CDT Radiation Oncology [facility] Radiation Therapy Center [address] [place], [place] [id number] documented in this encounter Plan of Treatment Upcoming Encounters Date Type Specialty Care Team Description 05/02/2022 Appointment Radiation Oncology Dot Lopez M.D. [address] [place] [phone] 05/05/2022 Appointment Radiation Oncology Judy Mccall M.D. [address] [place] [phone] 05/06/2022 Appointment Radiation Oncology Judy Mccall M.D. [address] [place] [phone] 05/06/2022 Appointment Radiation Oncology Judy Mccall M.D. [address] [place] [phone] 05/07/2022 Appointment Radiation Oncology Judy Mccall M.D. [address] [place] [phone] 05/08/2022 Appointment Radiation Oncology Judy Mccall M.D. [address] [place] [phone] 05/22/2022 Clinical Communication Admitting/Central Scheduling 05/26/2022 Appointment Radiology Merlyn Rose APRN, C.NLeopoldo, M.S.N. [address] [place] [phone] 05/27/2022 Office Visit Oncology Merlyn Rose APRN, C.NLeopoldo, M.S.N. [address] [place] [phone] Scheduled Referrals Name Type Priority Associated Diagnoses Order S [facility] Radiation Oncology Outpatient Referral Routine Malignant Neopl asm Once for 1 - Sheep Rancher consult Of Uterus Occurrences (clinic) Endometrial (HCC) starting 0 03/31/2022 until 2 documented as of this encounter Visit Diagnoses Diagnosis Malignant Neoplasm Of Uterus Endometrial (HCC) documented in this encounter Administered Medications Inactive Administered Medications - up to 3 most recent administrations Medication Order MAR Action Action Date Dose Rate Site ondansetron ODT disintegrating Given 03/31/2022 11:15 AM CDT 8 m g tablet 8 mg (ZOFRAN-ODT) 8 mg, oral, Once, On 03/31/22 at 1315, For 1 dose documented in this encounter Care Teams Director Security Risk Management Relationship Specialty Start Date End Date Elsewhere, Pcp PCP - General Internal Medicine 10/01/21 documented as of this encounter
--- OUTSIDE RECORDS SUMMARY | 2022-05-01 16:11 | XMS_ITS | Encounter Summary ---
:1950 Author Organization [facility] Address [address] [place] [address] Care Team Providers Name Role Phone Elsewhere, Pcp Primary Care Provider Unavailable Encounter Details Date Type Department Care Team Description 04/11/2022 Hospital Encounter Department of Radiation Trent Mccall I., Oncology in [facility] [address] [facility] [address] [place] [phone] Social History Tobacco Use Types Packs/Day Years [...] or relatives? How often do you attend mu-ism or More than 4 times per year 03/17/2022 buddhist services? 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 [address] [place] [phone] 05/05/2022 Appointment Radiation Oncology Judy Mccall M.D. [address] [place] [phone] 05/06/2022 Appointment Radiation Oncology Judy Mccall M.D. [address] [place] [phone] 05/06/2022 Appointment Radiation Oncology Judy Mccall M.D. [address] [place] [phone] 05/07/2022 Appointment Radiation Oncology Judy Mccall M.D. [address] [place] [address] [phone] 05/08/2022 Appointment Radiation Oncology Judy Mccall M.D. [address] [place] [phone] 05/22/2022 Clinical Communication Admitting/Central Scheduling 05/26/2022 Appointment Radiology Merlyn Rose APRN, C.NLeopoldo, M.S.N. [address] [place] [phone] 05/27/2022 Office Visit Oncology Merlyn Rose APRN, C.NLeopoldo, M.S.N. [address] [place] [phone] documented as of this encounter Visit Diagnoses Not on filedocumented in this encounter Care Teams Photographer'S Assistant Relationship Specialty Start Date End Date Elsewhere, Pcp PCP - General Internal Medicine 10/01/21 documented as of this encounter
--- OUTSIDE RECORDS SUMMARY | 2022-05-01 16:11 | XMS_ITS | Encounter Summary ---
:1950 Author Organization [facility] Address [address] [place] [address] Care Team Providers Name Role Phone Elsewhere, Pcp Primary Care Provider Unavailable Reason for Referral Radiation Therapy (Routine) - Closed Specialty Diagnoses / Procedures Referred By Contact Refer red To Contact Diagnoses Malignant Neoplasm Of Uterus Endometrial (HCC) Dot Lopez M.D. [facility] Procedures Initial Rad Onc Treatment Planning CT Simulation [address] [place] [address] Referral ID Status Reason Start Date Expiration Date Visits Requ ested Visits Authorized [id number] Closed 03/18/2022 03/18/2023 1 1 Reason for Visit Radiation Therapy (Routine) - Closed Specialty Diagnoses / Procedures Referred By Contact Refer red To Contact Diagnoses Malignant Neoplasm Of Uterus Endometrial (HCC) Dot Lopez M.D. [facility] Procedures Initial Rad Onc Treatment Planning CT Simulation [address] [place], [place] [phone] Referral ID Status Reason Start Date Expiration Date Visits Requ ested Visits Authorized [id number] Closed 03/18/2022 03/18/2023 1 1 Encounter Details Date Type Department Care Team Description 03/20/2022 - Hospital Encounter Department of Dot Lopez Malign ant Neoplasm 03/21/2022 Radiation Oncology Brady Crenshaw Of Uterus in [place], [address] [facility] Endometrial (HCC) [place], [place] 200 [facility] [address] [place], [place] [phone] (Work) [phone] Social History Tobacco Use Types Packs/Day Years [...] or relatives? How often do you attend yarsanism or More than 4 times per year 03/17/2022 tenriism services? Do you belong to any clubs or Yes 03/17/2022 organizations such as yarsanism groups, unions, fraternal or athletic groups, or [...] at Date Recorded Female 07/20/2021 9:20 PM SHANK TAPPER documented as of this encounter Medications at [...] (CLEOCIN T) 1 APPLY ONE 60 mL 12/05/2021 % lotion APPLICATION TOPICALLY TWO TIMES [...] a day. documented as of this encounter Procedure Notes Milagros Granados RTT - 03/20/2022 3:30 PM CDTAssociated Order(s): Initial Rad Onc Treatment Planning CT Simulation Pre-Procedure Diagnose(s): Malignant Neoplasm Of Uterus Endometrial (HCC) Post-Procedure Diagnose(s): Malignant Neoplasm Of Uterus Endometrial (HCC) Initial Rad Onc Treatment Planning CT Simulation Date/Time: 03/20/2022 5:37 PM Performed by: Dot Lopez M.D. Authorized by: Dot Lopez M.D. Simulation was performed under physician supervision based on physician order in preparation for radiation therapy. Physician was immediately available to provide assistance and direction throughout the procedure. Written consent for treatment was completed or confirmed. The patient was appropriately identified and placed in the treatment position using the necessary immobilization to ensure a reproducible treatment position. Reference canela were placed to facilitate marking of isocenter. Area scanned:Pelvis Contrast used for the simulation procedure: None Patient position:head first supine Custom immobilization: Vac-arjun Motion management: None Bolus: No CT guidance: Following positioning of the patient, a series of slices was obtained to be utilized intreatment planning. CT images were transferred to the Spondo treatment planning system, after a reference isocenter was determined and marked. Segmentation and treatment planning will take place priorto treatment delivery. Patient set up and imaging was appropriate and completed without incident. Process Design Engineer use:No documented in this encounter Plan of Treatment Upcoming Encounters Date Type Specialty Care Team Description 05/02/2022 Appointment Radiation Oncology Dot Lopez M.D. [address] [place] [phone] 05/05/2022 Appointment Radiation Oncology Judy Mccall M.D. [address] [place] [phone] 05/06/2022 Appointment Radiation Oncology Judy Mccall M.D. [address] [place] [phone] 05/06/2022 Appointment Radiation Oncology Judy Mccall M.D. [address] [place] [phone] 05/07/2022 Appointment Radiation Oncology Judy Mccall M.D. [address] [place] [phone] 05/08/2022 Appointment Radiation Oncology Judy Mccall M.D. [address] [place] [phone] 05/22/2022 Clinical Communication Admitting/Central Scheduling 05/26/2022 Appointment Radiology Merlyn Rose APRN, C.NLeopoldo, M.S.N. [address] [place] [phone] 05/27/2022 Office Visit Oncology Merlyn Rose APRN, C.NLeopoldo, M.S.N. [address] [place] [phone] documented as of this encounter Procedures Procedure Name Priority Date/Time Associated Diagnosis Comme nts INITIAL RAD ONC Routine 03/20/2022 5:37 PM Malignant Neoplasm Results for this TREATMENT PLANNING CDT Of Uterus procedure are in CT SIMULATION Endometrial (HCC) the resul ts section. documented in this encounter Results Initial Rad Onc Treatment Planning CT Simulation (03/20/2022 5:37 PM CDT) Specimen (Source) Anatomical Location Collection Method / Collectio n Time Received Time / Laterality Volume Narrative WILLIAMSON KIMMY - 03/20/2022 5:37 PM CDT Milagros Granados, JOSE F ? 03/20/2022 ??5:37 PM Initial Rad Onc Treatment Planning CT Si mulation Date/Time: 03/20/2022 5:37 PM Performed by: Dot Lopez M.D. Authorized by: Dot Lopez M.D. Dot Lopez M.D. RADIATION ONCOLOGY ORDERABLE S Performing Organization Address City/State/ZIP Code Phon e Number [place] documented in this encounter Visit Diagnoses Diagnosis Malignant Neoplasm Of Uterus Endometrial (HCC) documented in this encounter Care Teams Drop Crew Laborer Relationship Specialty Start Date End Date Elsewhere, Pcp PCP - General Internal Medicine 10/01/21 documented as of this encounter
--- OUTSIDE RECORDS SUMMARY | 2022-05-01 16:11 | XMS_ITS | Encounter Summary ---
:1950 Author Organization [facility] Address [address] [place] [phone] Care Team Providers Name Role Phone Elsewhere, Pcp Primary Care Provider Unavailable Reason for Referral Specialty Diagnoses / Procedures Referred By Contact Refer red To Contact Judy Mccall M.D. [facility] [address] [place] [phone] Referral ID Status Reason Start Date Expiration Date Visits Requ ested Visits Authorized Encounter Details Date Type Department Care Team Description 04/03/2022 Hospital Encounter Department of Dana Mccall M.D. [address] [place] [phone] Malignant Neoplasm Radiation Oncology Lynn Matthew, R.NYi [address] [place] [phone] Of Uterus in [facility] ( [facility]) [place] [address] [place] [phone] Social History Tobacco Use Types Packs/Day Years [...] or relatives? How often do you attend yazdanism or More than 4 times per year 03/17/2022 mormonism services? Do you belong to any clubs or Yes 03/17/2022 organizations such as yazdanism groups, unions, fraternal or athletic groups, or [...] place to sleep or slept in a long term (including now)? Education Answer Date Recorded What is the highest level of school Bachelor's degree (e.g., BA, AB, 07/20/2021 you have completed or the highest BS) degree you have received? 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 omeprazole (PriLOSEC) 20 Take 20 mg by [...] for Uterus Endometrial (HCC) nausea or vomiting. sertraline (ZOLOFT) 100 Take 100 mg by 0 03/28/20 21 mg tablet mouth every morning. LORazepam (ATIVAN) 0.5 mg Take 1 tablet (0.5 30 tablet 3 tabletIndications: mg total) by mouth Malignant Neoplasm Of every 8 (eight) Uterus Endometrial (HCC) hours as needed (nausea, vomiting) for up to 30 doses. NaCl 0.9 % irrigation 0 10/26/2021 sennosides-docusate Take 1 tablet by 0 10/07/2021 sodium (SENOKOT-S) 8.6-50 mouth 2 (two) times mg per tablet a day as needed for constipation. SODIUM CHLORIDE NASAL Administer into 0 nostril(s) 2 (two) times a day. Nasal irrigation before triple spray apixaban (ELIQUIS) 5 mg Take 2 tablets (10 392 tablet 0 01/202204/15/2022 tablet mg total) by mouth 2 (two) times a day for 8 days, THEN 1 tablet (5 mg total) 2 (two) times a day. documented as of this encounter Progress Notes Lynn Matthew R.N. - 04/03/2022 1:00 PM CDT Radiation education completed today with patient and [id number]. All questions answered. Please see education flowsheet for additional details. documented in this encounter Plan of Treatment Upcoming Encounters Date Type Specialty Care Team Description 05/02/2022 Appointment Radiation Oncology Dot Lopez M.D. 200 [place] [phone] 05/05/2022 Appointment Radiation Oncology Judy Mccall M.D. 200 [place] [phone] 05/06/2022 Appointment Radiation Oncology Judy Mccall M.D. [address] [place] [phone] 05/06/2022 Appointment Radiation Oncology Judy Mccall M.D. [address] [place] [phone] 05/07/2022 Appointment Radiation Oncology Judy Mccall M.D. [address] [place] [phone] 05/08/2022 Appointment Radiation Oncology Judy Mccall M.D. [address] [place] [phone] 05/22/2022 Clinical Communication Admitting/Central Scheduling 05/26/2022 Appointment Radiology Merlyn Rose APRN, C.NLeopoldo, M.S.N. [address] [place] [phone] 05/27/2022 Office Visit Oncology Merlyn Rose APRN, C.NLeopoldo, M.S.N. [address] [place] [phone] Scheduled Referrals Name Type Priority Associated Diagnoses Order S [facility] Radiation Oncology Outpatient Referral Routine Malignant Neopl asm Once for 1 - Nurse education Of Uterus Occurrence s visit (clinic) Endometrial (HCC) starting 04/03/2022 until 2 documented as of this encounter Visit Diagnoses Diagnosis Malignant Neoplasm Of Uterus Endometrial (HCC) documented in this encounter Care Teams Electric Tripper Machine Operator Relationship Specialty Start Date End Date Elsewhere, Pcp PCP - General Internal Medicine 10/01/21 documented as of this encounter
--- OUTSIDE RECORDS SUMMARY | 2022-05-01 16:11 | XMS_ITS | Encounter Summary ---
:1950 Author Organization [facility] Address [address] [place] [address] Care Team Providers Name Role Phone Elsewhere, Pcp Primary Care Provider Unavailable Reason for Referral Radiation Therapy (Routine) - Authorized Specialty Diagnoses / Procedures Referred By Contact Refer red To Contact Diagnoses Malignant Neoplasm Of Uterus Endometrial (HCC) Judy Mccall M.D. [facility] Procedures Management Visit [address] [place], [place] [phone] Referral ID Status Reason Start Date Expiration Date Visits V isits Requested Authorized [id number] Authorized 03/27/2022 03/27/2023 8 8 Reason for Visit Radiation Therapy (Routine) - Authorized Specialty Diagnoses / Procedures Referred By Contact Refer red To Contact Diagnoses Malignant Neoplasm Of Uterus Endometrial (HCC) Judy Mccall M.D. [facility] [place] Procedures Management Visit [address] [place] [phone] Referral ID Status Reason Start Date Expiration Date Visits V isits Requested Authorized [id number] Authorized 03/27/2022 03/27/2023 8 8 Encounter Details Date Type Department Care Team Description 04/08/2022 Hospital Encounter Department of Judy Mccall Neoplasm Radiation Oncology Brady Etienne Of Uterus in [place], [address] [facility] Endometrial (HCC) [place], [place] [address] [facility] [address] [place], [place] [phone] (Work) [phone] Social History Tobacco Use Types Packs/Day Years [...] many times do you More than three mracell es a week 03/17/2022 talk on the phone with family, friends, or neighbors? How often do you get together with friends Twice a week 03/17/2022 or relatives? How often do you attend mormon or More than 4 times per year 03/17/2022 rastafarian services? Do you belong to any clubs [...] place to sleep or slept in a half-way (including now)? Education Answer Date Recorded What is the highest level of school Bachelor's degree (e.g., BA, AB, 07/20/2021 you have completed or the highest BS) degree you have received? 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 - 04/08/2022 2:00 PM CDT ATTESTATION FOR MANAGEMENT VISIT I saw and evaluated the patient and participated in the ingram portions of the service as noted below. I reviewed the documentation of Ms. Eliana Goetz RN and agree with the findings and plan. The patient appears well on exam. We will continue with radiation as planned and monitor weekly. Judy Mccall M.D., 04/08/2022 SUBJECTIVE REASON FOR VISIT Evaluation for side effects while receiving radiation treatment for 1. Malignant Neoplasm Of Uterus Endometrial (HCC) SUPERVISED BY: Judy Mccall M.D. HISTORY OF PRESENT ILLNESS Nelda Pavon is a 71 y.o. female with endometrial cancer who has received chemotherapy and is currently receiving adjuvant radiotherapy. Brachytherapy boost is scheduled on our [facility] for April 28 and May 02, 2022. Treatment Course: 1xPelvisPA Plan ID Fractions Dose / Fraction (cGy) Dose Treated (cGy) Dose Planned (cGy) First Treatment Last Treatment Elapsed Days [id number] 03/31/2022 04/08/2022 8 Course Summary 03/31/2022 04/08/2022 8 The patient was seen and examined today with Dr. Mccall. The patient reports that she is doing well overall. She denies fevers, chills, dysuria, diarrhea or new symptoms/concerns. PATIENT REPORTED SYMPTOM SCREEN FATIGUE (Scale: 0 = no fatigue; 10 = worst fatigue you can imagine): 0 PAIN (Scale: 0 = no pain; 10 = worst pain you can imagine): 0 OVERALL QUALITY OF LIFE (Scale: 0 = as bad as can be; 10 = as good as can be): 10 OBJECTIVE BP 125/66 (BP Location: Right arm, Patient Position: Sitting, Cuff Size: Regular) Pulse 63 Temp 36.1 ??C (Temporal) Wt 91.2 kg BMI 33.38 kg/m?? PHYSICAL EXAM General: Alert and oriented in no apparent distress. ASSESSMENT / PLAN #1 FIGO Stage IIIC 2 serous endometrial adenocarcinoma, s/p surgery and chemotherapy #2 Soft tissue enhancing nodule on the bladder dome #3 External beam radiotherapy, initiated on March 31, 2022, anticipated completion date is May 07, 2022 The patient is tolerating radiation treatment well overall. Nurse education visit has been completed. Patient will be seen in weekly management visits through out radiation therapy. Patient is scheduled for brachytherapy on our [facility] on April 28 and 2021. She will contact us with any questions or concerns. We will continue with radiation treatment as planned. Signed by: Eliana Goetz R.N. 04/08/2022 2:15 PM CDT documented in this encounter Plan of Treatment Upcoming Encounters Date Type Specialty Care Team Description 05/02/2022 Appointment Radiation Oncology Dot Lopez M.D. [address] [place] [phone] 05/05/2022 Appointment Radiation Oncology Judy Mccall M.D. [address] [place] [phone] 05/06/2022 Appointment Radiation Oncology Judy Mccall M.D. [address] [place] [phone] 05/06/2022 Appointment Radiation Oncology Judy Mccall M.D. [address] [place] [phone] 05/07/2022 Appointment Radiation Oncology Judy Mccall M.D. [address] [place] [phone] 05/08/2022 Appointment Radiation Oncology Judy Mccall M.D. [address] [place] [phone] 05/22/2022 Clinical Communication Admitting/Central Scheduling 05/26/2022 Appointment Radiology Merlyn Rose APRN, C.N.P., M.S.N. [address] [place] [phone] 05/27/2022 Office Visit Oncology Merlyn Rose APRN C.N.P., M.S.N. [address] [place] [phone] Scheduled Orders Name Type Priority Associated Diagnoses Order S chedule Management Visit Radiation Oncology Routine Malignant Neoplasm Once for 1 Of Uterus Occurrences sta rting Endometrial (HCC) 04/08/2022 until 04/08/2022 documented as of this encounter Visit Diagnoses Diagnosis Malignant Neoplasm Of Uterus Endometrial (HCC) documented in this encounter Care Teams Administrative Associate Relationship Specialty Start Date End Date Elsewhere, Pcp PCP - General Internal Medicine 10/01/21 documented as of this encounter
--- OUTSIDE RECORDS SUMMARY | 2022-05-01 16:11 | XMS_ITS | Encounter Summary ---
:1950 Author Organization [facility] Address [address] [place] [address] Care Team Providers Name Role Phone Elsewhere, Pcp Primary Care Provider Unavailable Encounter Details Date Type Department Care Team Description 04/09/2022 Hospital Encounter Department of Radiation Trent Mccall I., Oncology in [facility] [address] [facility] [address] [place] [phone] Social History Tobacco Use Types Packs/Day Years [...] or relatives? How often do you attend adventism or More than 4 times per year 03/17/2022 pentecostal services? 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 [address] [place] [phone] 05/05/2022 Appointment Radiation Oncology Judy Mccall M.D. [address] [place] [phone] 05/06/2022 Appointment Radiation Oncology Judy Mccall M.D. [address] [place] [phone] 05/06/2022 Appointment Radiation Oncology Judy Mccall M.D. [address] [place] [phone] 05/07/2022 Appointment Radiation Oncology Judy Mccall M.D. [address] [place] [phone] 05/08/2022 Appointment Radiation Oncology Judy Mccall M.D. [address] [place] [phone] 05/22/2022 Clinical Communication Admitting/Central Scheduling 05/26/2022 Appointment Radiology Merlyn Rose APRN, C.NLeopoldo, M.S.N. [address] [place] [phone] 05/27/2022 Office Visit Oncology Merlyn Rose APRN, C.NLepooldo, M.S.N. [address] [place] [phone] documented as of this encounter Visit Diagnoses Not on filedocumented in this encounter Care Teams Security Ambassador Relationship Specialty Start Date End Date Elsewhere, Pcp PCP - General Internal Medicine 10/01/21 documented as of this encounter
--- OUTSIDE RECORDS SUMMARY | 2022-05-01 16:11 | XMS_ITS | Encounter Summary ---
:1950 Author Organization [facility] Address [address] [place] [address] Care Team Providers Name Role Phone Elsewhere, Pcp Primary Care Provider Unavailable Reason for Referral Outpatient (Routine) - Closed Specialty Diagnoses / Procedures Referred By Contact Refer red To Contact Radiation Oncology Diagnoses Malignant Neoplasm Of Uterus Endometrial (HCC) Dot Lopez [place] M.D. [address] [place] [address] Referral ID Status Reason Start Date Expiration Date Visits Requ ested Visits Authorized [id number] Closed 03/20/2022 03/20/2023 1 1 Scheduling Instructions First day of treatment please! Outpatient (Routine) - Closed Specialty Diagnoses / Procedures Referred By Contact Refer red To Contact Radiation Oncology Diagnoses Malignant Neoplasm Of Uterus Endometrial (HCC) Merlyn Rose [facility] Lori CALLE C.NLeopoldo, M.S.N. [address] [place] [address] Referral ID Status Reason Start Date Expiration Date Visits Requ ested Visits Authorized [id number] Closed 02/19/2022 02/19/2023 1 1 Scheduling Instructions Patient previously saw Dr. Mcduffie. adiation Therapy (Routine) - Closed Specialty Diagnoses / Procedures Referred By Contact Refer red To Contact Diagnoses Malignant Neoplasm Of Uterus Endometrial (HCC) Dot Lopez M.D. [facility] Procedures Initial Rad Onc Treatment Planning CT Simulation [address] [place] [phone] Referral ID Status Reason Start Date Expiration Date Visits Requ ested Visits Authorized [id number] Closed 03/18/2022 03/18/2023 1 1 Reason for Visit Outpatient (Routine) - Closed Specialty Diagnoses / Procedures Referred By Contact Refer red To Contact Radiation Oncology Diagnoses Malignant [facility]) [facility] CYiNYiP., M.S.N. [address] [place] [phone] Referral ID Status Reason Start Date Expiration Date Visits Requ ested Visits Authorized [id number] Closed 02/19/2022 02/19/2023 1 1 Encounter Details Date Type Department Care Team Description 03/20/2022 - Hospital Encounter Department of Dot Lopez Malign ant Neoplasm 03/21/2022 Radiation Oncology Brady Crenshaw Of Uterus in [place], [address] [place] [address] Endometrial (HCC) [place], [place] (Primary Dx) [address] [place] [phone] [place], [place] [phone] (Work) [phone] Social History Tobacco Use Types Packs/Day Years [...] or relatives? How often do you attend quaker or More than 4 times per year 03/17/2022 shinto services? 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 - 03/20/2022 3:00 PM CDT REQUESTING PROVIDER Merlyn Rose APRN C.N.PYi, M.S.N. DIAGNOSIS Collaborating Physician: Dot Lopez M.D. ([id number]) 1. Malignant Neoplasm Of Uterus Endometrial (HCC) CHIEF COMPLAINT/REASON FOR VISIT Nelda Pavon is a 71 y.o.-year old woman from [place], [place] with the following oncologichistory: 1. April 2021: Patient developed postmenopausal bleeding. She subsequently underwent 2 endometrial biopsies, which were negative. 2. August 2021: CT scan demonstrated a 6.2 cm mass replacing the endometrium and myometrium. Periuterine fat infiltration and nodular tissue posterior to the L ovary was suspicious for tumor infiltration. Suspicious lymph nodes were seen in the retroperitoneal left periaortic region, left external and internal iliac vessels. 3. August 29, 2021: Intense FDG avid mass in the endometrium as well as right iliac, left periaortic, and adjacent fat posteriorly and along left adnexa. Indeterminate activity in left iliac lymph nodes. 4. September 04, 2021: Pelvic MR demonstrated large 7cm endometrial mass. Involvement of the cervix was noted without vaginal extension. Questionable extension into the L adnexa. 5. October 01, 2021: Patient underwent a robotic-assisted modified radical hysterectomy, BSO, pelvic/paraaortic LND and omentectomy. 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 LVSI +. The cervical stroma and L ovary were not involved. 1 macrometastasis was found on L pelvic area, 1 micrometastasis on R pelvic and 1 L paraortic macrometastasis demonstrated cancer. Final staging FIGO IIIC2 (pT3a, pN2a). A sigmoid nodule was submitted, which was positive for involvement by serous carcinoma. Peritoneal fluid was aytpical, favor reactive/degenerative. INTERVAL HISTORY: Since Dr. Mcduffie last saw Nelda Pavon in October for consultation, she reports feeling reasonably well. She has now completed all six cycles of chemotherapy with carboplatin AUC 6 and paclitaxel. Throughout her course, she has unfortunately experienced peripheral neuropathy, mild ne utropenia, and anemia. She has fallen a few times throughout chemotherapy due to dizziness and peripheral neuropathy. She continues to use a cane when ambulating for stability. Today, she denies vaginal bleeding or discharge. She denies any changes to her bladder function, but she has been experiencing constipation throughout chemotherapy. She denies shortness of breath, chest pain, fevers, and chills. She voices no other concerns during our visit. ROS: Pertinent items are noted in HPI; all other review of systems were negative. oncology history, current medications, surgical history, and problem list and allergies were reviewed today. OBJECTIVE Wt 90.2 kg BMI 33.01 kg/m?? Pain assessment: 0 - No pain/10; Location:Mid Abdomen General: Nelda Pavon is a well-developed, well-nourished woman. She is seated in the examination room in no acute distress. ECO - symptomatic but completely ambulatory. Lungs: Breathing comfortably on room air. Abdomen: Soft, non-tender and non-distended. Pelvis: External genitalia normal. Deferred to Dr. Lopez. Musculoskeletal: No pain to palpation along the spine. Neuro: Cranial nerves II-XII are grossly intact. The patient is alert and oriented. Speech is fluent. Affect is appropriate. Gait is within normal limits. DIAGNOSTICS: I have reviewed the available imaging, operative and pathology reports as described above and reviewed in the EMR. 03/20/2022: CT abdomen/pelvis showed interval postoperative changes of hysterectomy, bilateral salpingo-oophorectomy, pelvic and left periaortic lymphadenectomy, and omentectomy. An enhancing 0.5 cm soft tissue nodule adjacent to the bladder dome is suspicious for local (intraperitoneal) recurrence. Enhancing 0.5 cm nodule deep to the left posterior pelvic sidewall has decreased in size and may represent treated disease. No evidence of distant metastatic carcinoma in the abdomen or pelvis. 03/20/2022: CT chest demonstrated new 3 mm nodule in right upper lobe and a few other indeterminate small nodules. Improved atelectasis present on 10/02/21 CT chest. 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 She is now approximately 5 1/2 months status post surgery and is doing well from that standpoint. She has also completed six cycles of chemotherapy with carboplatin and paclitaxel, requiring a dose reduction for the last cycle. Ms. Pavon was able to review her imaging results from this morning with our colleagues in Medical Oncology. Unfortunately, there was a new 0.5 cm enhancing soft tissue nodule near the bladder dome. This is suspicious for intraperitoneal recurrence. There are a few indeterminate pulmonary nodules identified as well. We reviewed the plan and recommendations for radiation therapy. The recommendation remains for 5 weeks external beam radiotherapy and a 2 fraction intracavitary brachytherapy boost to the vaginal cuff.I discussed that we will encompass the suspicious soft tissue lesion identified near the bladder dome within our treatment field. We did discuss that the pulmonary nodules are indeterminate and that they will require careful surveillance. We also reviewed the acute toxicities associated with treatment including, but not limited to fatigue, acute bowel and bladder changes, and nausea. The risk of late toxicities and expected long-term oncologic outcomes were also discussed. Specifically, we did discuss the risk of vaginal dryness and stenosis after delivery of external beam radiotherapy and brachytherapy boost. We also discussed trial [id number], explaining the rationale and logistics of both proton and photon radiation. She expressed interest in the trial but would like to take some time to think about where she would like to receive external beam treatment. We will proceed with planning the external beam treatments today and send the plan to [place] should she decide to be treated there. Ms. Pavon understands that the intracavitary brachytherapy treatments will be delivered here in [place]. PLAN We will see Ms. Pavon later this afternoon for CT simulation. She will reach out to us in the next couple of days with her decision regarding location of treatments. If she proceeds with treatment in [place], we will bring her back to the department once she has completed her five weeks of externalbeam radiation for her intracavitary brachytherapy. Ms. Pavon knows to contact us at any point should any questions or concerns arise. All questions and concerns addressed to the best of my ability. Please see Dr. Lopez's note for further details. EDUCATION Ready to learn, no apparent learning barriers were identified; learning preferences include listening. Explained diagnosis and treatment plan; patient expressed understanding of the content. I personally spent over half of a total 57 minutes in counseling and discussion with the patient andcoordination of care as described above. Electronically signed by: Mariluz Marshall APRN, C.N.P., D.N.P. 03/20/22 5:04 PM CDT Associated attestation - Dot Lopez M.D. - 03/21/2022 4:22 PM CDT Mrs. Pavon is a 71 y.o. year old female with FIGO Stage IIIC2 serous endometrial cancer who was seenin regularly scheduled follow up. She saw Dr. Mcduffie, Senior Professor Of Vegetable Science, in consultation in October 2021. I am seeing her today as Dr. Mcduffie is no longer at [facility]. She was seen with Nury Marshall APRN CNP DNP, please see her note for full history and exam details. INTERVAL HISTORY Since her initial consultation in our department she has completed a total of 6 cycles of carboplatin and paclitaxel. Her course was complicated by peripheral neuropathy, neutropenia, and anemia requiring dose reduction. She reports following a few times due to dizziness and peripheral neuropathy. Sherequired stitches after biting her tongue during 1 fall. She uses a cane for stability. No vaginal bleeding or discharge. She has been constipated with chemotherapy but no changes to urinary function. EXAM General: Well appearing woman in no acute distress. Alert and oriented. ECOG 2. Pelvic: Normal appearing external genitalia. Vaginal mucosa pink and moist. Vaginal cuff well healedwithout nodules or masses. Extremities: No lower extremity lymphedema. Exam chaperoned by Nury Marshall APRN CNP DNP. DIAGNOSTICS CT chest from today shows a few new tiny pulmonary nodules of uncertain significance. These are below the size resolution for PET-CT or biopsy. CT abdomen and pelvis shows postoperative changes with a small soft tissue enhancing nodule on the bladder dome, suspicious for intraperitoneal recurrence. Otherwise, no evidence of recurrent or metastatic disease. 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 We also discussed the enhancing nodule near the bladder, which may represent an early peritoneal recurrence. However, as the peritoneal nodule can likely be enc ompassed in a radiation field, I feel comfortable proceeding with radiotherapy as initially planned.She understands that based on the serous histology as well as stage of her tumor, that she is at high risk for both local, regional, and distant metastatic disease despite treatment with chemotherapy and radiation. We reviewed the recommendations for adjuvant external beam radiotherapy to the pelvis and para-aortic lymph node regions. Based on LVSI, I would also recommend vaginal cuff brachytherapy boost. We discussed logistics of radiation simulation, planning, and daily treatment as well as side effects of pelvic and periaortic radiation. We reviewed the potential for her enrollment on a prospective institutional trial evaluating the patient reported outcome with proton or photon radiation ([id number]). She is eligible for proton beam therapy with her current insurance with the hopes that this will improve the short and intermediate toxicity compared to IMRT photon radiation. Due to logistical issues, she would not want to receive proton therapy in [place] and prefers to receive treatment in [place]. However, this site is approved for study participation and I will ask our coordinator hotels to reach out to her. If study bloods cannot be collected in [place], she does not need to return [facility] and could receive treatment off trial. All questions answered. She consented to proceed with CT simulation and will begin treatment in [place] on 03/31/22. She is scheduled to meet with prior to her first treatment. We will schedule to fractions of vaginal cuff brachytherapy during her course and she understands she will not receive EBRT on days of the brachytherapy procedure. She was encouraged to contact me with questions or concerns, but understands to contact her [place] team first with issues once she has begun treatment. documented in this encounter Plan of Treatment Upcoming Encounters Date Type Specialty Care Team Description 05/02/2022 Appointment Radiation Oncology Dot Lopez M.D. [address] [place] [phone] 05/05/2022 Appointment Radiation Oncology Judy Mccall M.D. [address] [place] [phone] 05/06/2022 Appointment Radiation Oncology Judy Mccall M.D. [address] [place] [phone] 05/06/2022 Appointment Radiation Oncology Judy Mccall M.D. [address] [place] [phone] 05/07/2022 Appointment Radiation Oncology Judy Mccall M.D. [address] [place] [phone] 05/08/2022 Appointment Radiation Oncology Judy Mccall M.D. [address] [place] [phone] 05/22/2022 Clinical Communication Admitting/Central Scheduling 05/26/2022 Appointment Radiology Merlyn Rose APRN, C.N.P., M.S.N. [address] [place] [phone] 05/27/2022 Office Visit Oncology Merlyn Rose APRN, C.NLeopoldo, M.S.N. [address] [place] [phone] Scheduled Referrals Name Type Priority Associated Diagnoses Order S chedule Radiation Oncology Outpatient Referral Routine Malignant Neopl asm Once for 1 - Clinical Training Coordinator consult Of Uterus Occurrences (clinic) Endometrial (HCC) starting 0 03/20/2022 until 2 Radiation Oncology Outpatient Referral Routine Malignant Neopl asm Expected: - Clinical Training Coordinator consult Of Uterus 03/31/2022, (clinic) Endometrial (HCC) Expires: 1 08/20/2022 documented as of this encounter Results Initial Rad Onc Treatment Planning CT Simulation (03/20/2022 5:37 PM CDT) Specimen (Source) Anatomical Location Collection Method / Collectio n Time Received Time / Laterality Volume Narrative WILLIAMSON EMELYNioclas - 03/20/2022 5:37 PM CDT Milagros Granados RTT ? 03/20/2022 ??5:37 PM Initial Rad Onc Treatment Planning CT Si mulation Date/Time: 03/20/2022 5:37 PM Performed by: Dot Lopez M.D. Authorized by: Dot Lopez M.D. Dot Lopez M.D. RADIATION ONCOLOGY ORDERABLE S Performing Organization Address City/State/ZIP Code Phon e Number [facility] na documented in this encounter Visit Diagnoses Diagnosis Malignant Neoplasm Of Uterus Endometrial (HCC) - Primary Malignant Neoplasm Of Uterus Endometrial (HCC) documented in this encounter Care Teams Special Events Director Relationship Specialty Start Date End Date Elsewhere, Pcp PCP - General Internal Medicine 10/01/21 documented as of this encounter
--- OUTSIDE RECORDS SUMMARY | 2022-05-01 16:11 | XMS_ITS | Encounter Summary ---
:1950 Author Organization [facility] Address [address] [place] [address] Care Team Providers Name Role Phone Elsewhere, Pcp Primary Care Provider Unavailable Reason for Visit Reason Comments Med Refill Encounter Details Date Type Department Care Team Description 04/12/2022 Refill Department of Obstetrics and Torres, Sheila Sam APRN, Med Refill Gynecology in [facility] [address] [facility] [address] [place] [address] [place] [phone] Social History Tobacco Use Types Packs/Day Years [...] or relatives? How often do you attend buddhist or More than 4 times per year 03/17/2022 samaritan services? 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 [address] [place] [phone] 05/05/2022 Appointment Radiation Oncology Judy Mccall M.D. [address] [place] [phone] 05/06/2022 Appointment Radiation Oncology Judy Mccall M.D. [address] [place] [phone] 05/06/2022 Appointment Radiation Oncology Judy Mccall M.D. [address] [place] [phone] 05/07/2022 Appointment Radiation Oncology Judy Mccall M.D. [address] [place] [phone] 05/08/2022 Appointment Radiation Oncology Judy Mccall M.D. [address] [place] [phone] 05/22/2022 Clinical Communication Admitting/Central Scheduling 05/26/2022 Appointment Radiology Merlyn Rose APRN, Ellen.N.P., M.S.N. [address] [place] [phone] 05/27/2022 Office Visit Oncology Merlyn Rose APRN C.N.P., M.S.N. [address] [place] [phone] documented as of this encounter Visit Diagnoses Not on filedocumented in this encounter Care Teams Broadcast Designer Relationship Specialty Start Date End Date Elsewhere, Pcp PCP - General Internal Medicine 10/01/21 documented as of this encounter
--- OUTSIDE RECORDS SUMMARY | 2022-05-01 16:11 | XMS_ITS | Encounter Summary ---
:1950 Author Organization [facility] Address [address] [place] [address] Care Team Providers Name Role Phone Elsewhere, Pcp Primary Care Provider Unavailable Encounter Details Date Type Department Care Team Description 04/10/2022 Hospital Encounter Department of Radiation Trent Mccall I., Oncology in [facility] [address] [facility] [address] [place] [phone] Social History Tobacco Use Types Packs/Day Years [...] or relatives? How often do you attend holiness or More than 4 times per year 03/17/2022 gnosticist services? Do you belong to any clubs or Yes 03/17/2022 organizations such as holiness groups, unions, fraternal or athletic groups, or [...] to sleep or slept in a senior living (including now)? Education Answer Date Recorded What is the highest level of school Bachelor's degree (e.g., BA, AB, 07/20/2021 you have completed or the highest BS) degree you have received? 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 [address] [place] [phone] 05/05/2022 Appointment Radiation Oncology Judy Mccall M.D. [address] [place] [phone] 05/06/2022 Appointment Radiation Oncology Judy Mccall M.D. [address] [place] [phone] 05/06/2022 Appointment Radiation Oncology Judy Mccall M.D. [address] [place] [phone] 05/07/2022 Appointment Radiation Oncology Judy Mccall M.D. [address] [place] [phone] 05/08/2022 Appointment Radiation Oncology Judy Mccall M.D. [address] [place] [phone] 05/22/2022 Clinical Communication Admitting/Central Scheduling 05/26/2022 Appointment Radiology Merlyn Rose APRN, C.NLeopoldo, M.S.N. [address] [place] [phone] 05/27/2022 Office Visit Oncology Merlyn Rose APRN, C.NLeopoldo, M.S.N. [address] [place] [phone] documented as of this encounter Visit Diagnoses Not on filedocumented in this encounter Care Teams Topographical Surveyor Relationship Specialty Start Date End Date Elsewhere, Pcp PCP - General Internal Medicine 10/01/21 documented as of this encounter
--- OUTSIDE RECORDS SUMMARY | 2022-05-01 16:11 | XMS_ITS | Encounter Summary ---
:1950 Author Organization [facility] Address [address] [place] [address] Care Team Providers Name Role Phone Elsewhere, Pcp Primary Care Provider Unavailable Encounter Details Date Type Department Care Team Description 04/08/2022 Hospital Encounter Department of Radiation Trent Mccall I., Oncology in [facility] [address] [facility] [address] [place] [address] [phone] Social History Tobacco Use Types Packs/Day Years [...] or relatives? How often do you attend amish or More than 4 times per year 03/17/2022 hoahaoism services? 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 [address] [place] [address] [phone] 05/05/2022 Appointment Radiation Oncology Judy Mccall M.D. [address] [place] [address] [phone] 05/06/2022 Appointment Radiation Oncology Judy Mccall M.D. [address] [place] [address] [phone] 05/06/2022 Appointment Radiation Oncology Judy Mccall M.D. [address] [place] [phone] 05/07/2022 Appointment Radiation Oncology Judy Mccall M.D. [address] [place] [address] [phone] 05/08/2022 Appointment Radiation Oncology Judy Mccall M.D. [address] [place] [address] [phone] 05/22/2022 Clinical Communication Admitting/Central Scheduling 05/26/2022 Appointment Radiology Merlyn Rose APRN, C.NLeopoldo, M.S.N. [address] [place] [phone] 05/27/2022 Office Visit Oncology Merlyn Rose APRN, C.NLeopoldo, M.S.N. [address] [place] [phone] documented as of this encounter Visit Diagnoses Not on filedocumented in this encounter Care Teams Rubber Covering Machine Operator Relationship Specialty Start Date End Date Elsewhere, Pcp PCP - General Internal Medicine 10/01/21 documented as of this encounter
--- OUTSIDE RECORDS SUMMARY | 2022-05-01 16:11 | XMS_ITS | Encounter Summary ---
:1950 Author Organization [facility] Address [address] [place] [address] Care Team Providers Name Role Phone Elsewhere, Pcp Primary Care Provider Unavailable Encounter Details Date Type Department Care Team Description 03/31/2022 Hospital Encounter Department of Radiation Trent Mccall I., Oncology in [facility] [address] [facility] [address] [place] [address] [phone] Social History Tobacco Use Types Packs/Day Years [...] or relatives? How often do you attend scientology or More than 4 times per year 03/17/2022 buddhism services? 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 documented as of this encounter Plan of Treatment Upcoming Encounters Date Type Specialty Care Team Description 05/02/2022 Appointment Radiation Oncology Dot Lopez M.D. [address] [place] [phone] 05/05/2022 Appointment Radiation Oncology Judy Mccall M.D. [address] [place] [phone] 05/06/2022 Appointment Radiation Oncology Judy Mccall M.D. [address] [place] [phone] 05/06/2022 Appointment Radiation Oncology Judy Mccall M.D. [address] [place] [phone] 05/07/2022 Appointment Radiation Oncology Judy Mccall M.D. [address] [place] [phone] 05/08/2022 Appointment Radiation Oncology Judy Mccall M.D. [address] [place] [phone] 05/22/2022 Clinical Communication Admitting/Central Scheduling 05/26/2022 Appointment Radiology Merlyn Rose APRN, C.N.P., M.S.N. [address] [place] [phone] 05/27/2022 Office Visit Oncology Merlyn Rose APRN, C.N.P., M.S.N. [address] [place] [phone] documented as of this encounter Visit Diagnoses Not on filedocumented in this encounter Care Teams Traffic Worker Relationship Specialty Start Date End Date Elsewhere, Pcp PCP - General Internal Medicine 10/01/21 documented as of this encounter
--- OUTSIDE RECORDS SUMMARY | 2022-05-01 16:11 | XMS_ITS | Encounter Summary ---
:1950 Author Organization [facility] Address [address] [place] [address] Care Team Providers Name Role Phone Elsewhere, Pcp Primary Care Provider Unavailable Encounter Details Date Type Department Care Team Description 04/14/2022 Hospital Encounter Department of Radiation Trent Mccall I., Oncology in [facility] [address] [facility] [address] [place] [address] [phone] Social History Tobacco Use Types Packs/Day Years [...] or relatives? How often do you attend protestant or More than 4 times per year 03/17/2022 taoist services? 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 [address] [place] [address] [phone] 05/05/2022 Appointment Radiation Oncology Judy Mccall M.D. [address] [place] [address] [phone] 05/06/2022 Appointment Radiation Oncology Judy Mccall M.D. [address] [place] [address] [phone] 05/06/2022 Appointment Radiation Oncology Judy Mccall M.D. [address] [place] [phone] 05/07/2022 Appointment Radiation Oncology Judy Mccall M.D. [address] [place] [address] [phone] 05/08/2022 Appointment Radiation Oncology Judy Mccall M.D. [address] [place] [address] [phone] 05/22/2022 Clinical Communication Admitting/Central Scheduling 05/26/2022 Appointment Radiology Merlyn Rose APRN, C.NLeopoldo, M.S.N. [address] [place] [phone] 05/27/2022 Office Visit Oncology Merlyn Rose APRN, C.NLeopoldo, M.S.N. [address] [place] [phone] documented as of this encounter Visit Diagnoses Not on filedocumented in this encounter Care Teams Developer Architect Relationship Specialty Start Date End Date Elsewhere, Pcp PCP - General Internal Medicine 10/01/21 documented as of this encounter
--- OUTSIDE RECORDS SUMMARY | 2022-05-01 16:11 | XMS_ITS | Encounter Summary ---
:1950 Author Organization [facility] Address [address] [place] [address] Care Team Providers Name Role Phone Elsewhere, Pcp Primary Care Provider Unavailable Encounter Details Date Type Department Care Team Description 04/03/2022 Hospital Encounter Department of Radiation Trent Mccall I., Oncology in [facility] [address] [facility] [address] [place] [address] [phone] Social History Tobacco Use Types Packs/Day Years [...] or relatives? How often do you attend sabianist or More than 4 times per year 03/17/2022 bahai services? Do you belong to any clubs or Yes 03/17/2022 organizations such as sabianist groups, unions, fraternal or athletic groups, or [...] place to sleep or slept in a jail (including now)? Education Answer Date Recorded What is the highest level of school Bachelor's degree (e.g., BA, AB, 07/20/2021 you have completed or the highest BS) degree you have received? 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 [address] [place] [address] [phone] 05/05/2022 Appointment Radiation Oncology Judy Mccall M.D. [address] [place] [address] [phone] 05/06/2022 Appointment Radiation Oncology Judy Mccall M.D. [address] [place] [address] [phone] 05/06/2022 Appointment Radiation Oncology Judy Mccall M.D. [address] [place] [phone] 05/07/2022 Appointment Radiation Oncology Judy Mccall M.D. [address] [place] [address] [phone] 05/08/2022 Appointment Radiation Oncology Judy Mccall M.D. [address] [place] [address] [phone] 05/22/2022 Clinical Communication Admitting/Central Scheduling 05/26/2022 Appointment Radiology Merlyn Rose APRN, C.NLeopoldo, M.S.N. [address] [place] [phone] 05/27/2022 Office Visit Oncology Merlyn Rose APRN, C.NLeopoldo, M.S.N. [address] [place] [phone] documented as of this encounter Visit Diagnoses Not on filedocumented in this encounter Care Teams General Warehouse Worker Relationship Specialty Start Date End Date Elsewhere, Pcp PCP - General Internal Medicine 10/01/21 documented as of this encounter
--- OUTSIDE RECORDS SUMMARY | 2022-05-01 16:12 | XMS_ITS | Encounter Summary ---
:1950 Author Organization [facility] Address [address] [place] [address] Care Team Providers Name Role Phone Elsewhere, Pcp Primary Care Provider Unavailable Reason for Referral Outpatient (Routine) - Closed Specialty Diagnoses / Procedures Referred By Contact Refer red To Contact Radiation Oncology Diagnoses Malignant Neoplasm Of Uterus Endometrial (HCC) [facility] M.S.N. [address] [place] [phone] Referral ID Status Reason Start Date Expiration Date Visits Requ ested Visits Authorized [id number] Closed 02/19/2022 02/19/2023 1 1 Scheduling Instructions Patient previously saw Dr. Mcduffie. Reason for Visit Episode Based Medications (Routine) - Closed Specialty Diagnoses / Procedures Referred By Contact Refer red To Contact Diagnoses Malignant Neoplasm Of Uterus Endometrial (HCC) Neutropenia Chemotherapy Induced (HCC) Merlyn Rose APRN, Rst Onc Trip Sumner, M.S.N. [address] [place] [phone] Referral ID Status Reason Start Date Expiration Date Visits Requ ested Visits Authorized [id number] Closed 10/15/2021 10/15/2022 99 99 Encounter Details Date Type Department Care Team Description 02/19/2022 Office Visit Department of Merlyn feldman Malignan t Neoplasm Of Uterus Endometrial (HCC); Oncology in DIRECTOR INSTRUCTIONAL MATERIAL, C.N.P., Neutropenia Ch emotherapy Induced (HCC) [place], [place] M.S.N. [address] [place] [phone] Social History Tobacco Use Types Packs/Day Years [...] or relatives? How often do you attend episcopal or More than 4 times per year 03/17/2022 temple services? 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 - 02/19/2022 9:00 AM CDT SUBJECTIVE CHIEF COMPLAINT/PUPROSE OF VISIT Ms. Pavon is a 71 y.o. woman with stage IIIC2 serous endometrial cancer Collaborating provider: Dr. Hai Reese ([phone]) HISTORY OF PRESENT ILLNESS Ms. Pavon is a very pleasant 71 y.o. woman with the following oncologic history: Oncology History Malignant Neoplasm Of Uterus Endometrial (HCC) Genetic Testing and Tumor Genotyping IHC: Normal expression of MLH1, MSH2, MSH6, and PMS2 HER2 negative Negative germline genetic testing in 2021; Breast and Trim Die Maker + Colorectal Cancers panel through [facility]. 08/12/2021 Initial Diagnosis Began experiencing PMB [...] Cardiomegaly with small pericardial effusion. 10/22/2021 - Chemotherapy Dose reductions due to neutropenia and peripheral neuropathy. CARBOplatin AUC 6 / PACLitaxel ( GAUGE AND INSTRUMENT INSPECTOR ) Start Date: 10/22/2021 INTERVAL HISTORY: Ms. Pavon presents today for evaluation in anticipation of her 6th and final planned cycle of treatment for her newly diagnosed serous endometrial cancer. Of note, she was sent to the emergency room and hospitalized for roughly 3 days post her last cycle of treatment. Symptoms included a couple of episodes of bloody diarrhea, which transition to nonbloody diarrhea. She had a CT scan done at her local institution, which noted a picture of colitis and questionable proctitis. There was notation of diverticulosis, without clear diverticulitis. She did have C diff testing which was negative. Without infectious cause for the symptoms, it was anticipated this could be related to her chemotherapy treatmen t. She was able to transition to a normal diet and dismissed on Thursday02/08/2022. She was able togo on vacation with her family immediately thereafter, and has felt well since. She notes she did vomit to times on the way to vacation, which she anticipates is related to quick advancement of her diet. Her issues with blood in her stool or diarrhea, noting issues now having bowel movements that are formed and normal in color daily to every other day. She has had no further nausea or vomiting, is tolerating a general diet. increase in neuropathy symptoms in the toes of her left foot. She notes this does not cause her problems with ambulation, but does cause her issues with falling asleep. She notes she has utilized Ativan a few times to help her sleep, with good results. She continues to receive IV hydration locally twice weekly she has only had 1 episode of feeling lightheaded over the course of the last week. She otherwise denies urinary concerns, fever/chills, or abdominal pain. REVIEW OF SYSTEMS Pertinent items are noted in HPI; all other review of systems were negative. OBJECTIVE VITAL SIGNS Vitals Blood Pressure: 105/70, Temperature: 37.5 ??C, Temp Source: Tympanic, Pulse Rate: 70, SpO2: 98 %, Height: 163.6 cm, Weight: 91.7 kg BP Readings from Last 1 Encounters: 02/19/22 105/70 Pulse Readings from Last 1 Encounters: 02/19/22 70 Temp Readings from Last 1 Encounters: 02/19/22 37.5 ??C (Tympanic) No data recorded PHYSICAL EXAMINATION General: Alert and oriented, and in no acute distress. Able to ambulate on and off the exam table without difficulty. ECOG PS 1. Lymph: No palpable cervical, supraclavicular, axillary, and inguinal lymphadenopathy. Heart: Regular rate and rhythm. Lungs: Clear to auscultation bilaterally. Abdomen: Soft, non-tender, non-distended. Extremities: No pitting edema. No tenderness or erythema. Mental: Mood and affect appropriate for situation. DIAGNOSTICS: I reviewed the pertinent laboratory and diagnostic data. ASSESSMENT / PLAN #1 Malignant Neoplasm Of Uterus Endometrial (HCC) #2 Neutropenia Chemotherapy Induced (HCC) Ms. Pavon presents today with family for evaluation in anticipation of her 6th and final planned cycle of combination carboplatin and paclitaxel chemotherapy for her newly diagnosed serous endometrialcancer. Her labs were reviewed, and are notable for a platelet count of 95 today. Considering her recent hospitalization for colitis and question whether not this is related to chemotherapy, we discussed a couple of options moving forward. She understands that it is difficult to determine if this is truly related to her chemotherapy, if symptoms would recur if we proceed with further treatment. We did the option omitting cycle 6 of treatment in proceeding to surveillance/meeting with radiation at this time. We also discussed the option of proceeding with chemotherapy today with a dose reduction of her carboplatin and paclitaxel in an effort to prevent further issues with colitis, as well as issuesregarding her neuropathy and thrombocytopenia. Upon further discussion, she would like to proceed with chemotherapy today. I have adjusted the treatment plan to further reduce the paclitaxel by an additional 20%, for a total of 40% reduction. I have also adjust that carboplatin to an AUC of 4. I will plan to have her continue with Neulasta on body with this cycle of treatment. She is currently planned for a return visit in roughly 4 weeks for lab work, imaging, and evaluation following completion oftreatment. I will also place an order for a return visit with Radiation to meet with this appointment, as possible. We did discuss symptoms that would warrant urgent evaluation in regard to recurrence have colitis symptoms or infectious type symptoms. She verbalized understanding of the above information, as no further questions or concerns at this time she agrees to contact us if she would have any new or concerning symptoms prior to her next planned return visit. PATIENT EDUCATION Ready to learn, no apparent learning barriers were identified; learning preferences include listening. Explained diagnosis and treatment plan; patient expressed understanding of the content. documented in this encounter Plan of Treatment Upcoming Encounters Date Type Specialty Care Team Description 05/02/2022 Appointment Radiation Oncology Dot Lopez M.D. [address] [place] [phone] 05/05/2022 Appointment Radiation Oncology Judy Mccall M.D. [address] [place] [phone] 05/06/2022 Appointment Radiation Oncology Judy Mccall M.D. [address] [place] [phone] 05/06/2022 Appointment Radiation Oncology Judy Mccall M.D. [address] [place] [phone] 05/07/2022 Appointment Radiation Oncology Judy Mccall M.D. [address] [place] [phone] 05/08/2022 Appointment Radiation Oncology Judy Mccall M.D. [address] [place] [phone] 05/22/2022 Clinical Communication Admitting/Central Scheduling 05/26/2022 Appointment Radiology Merlyn Rose APRN, C.N.P., M.S.N. [address] [place] [phone] 05/27/2022 Office Visit Oncology Merlyn Rose APRN C.N.P., M.S.N. [address] [place] [phone] Scheduled Referrals Name Type Priority Associated Diagnoses Order [facility] Radiation Oncology Outpatient Referral Routine Malignant Neopl asm Expected: - Trim Die Maker consult Of Uterus 03/20/2022, (clinic) Endometrial (HCC) Expires: 05/22/2023 documented as of this encounter Visit Diagnoses Diagnosis Malignant Neoplasm Of Uterus Endometrial (HCC) Neutropenia Chemotherapy Induced (HCC) documented in this encounter Care Teams Tong Carrier Relationship Specialty Start Date End Date Elsewhere, Pcp PCP - General Internal Medicine 10/01/21 documented as of this encounter
--- OUTSIDE RECORDS SUMMARY | 2022-05-01 16:12 | XMS_ITS | Encounter Summary ---
:1950 Author Organization [facility] Address [address] [place] [address] Care Team Providers Name Role Phone Elsewhere, Pcp Primary Care Provider Unavailable Reason for Visit Episode Based Medications (Routine) - Closed Specialty Diagnoses / Procedures Referred By Contact Refer red To Contact Diagnoses Malignant Neoplasm Of Uterus Endometrial (HCC) Neutropenia Chemotherapy Induced (HCC) Merlyn Rose APRN, Rst Onc Trip Sumner, M.S.N. [address] [place] [address] [place] [phone] Referral ID Status Reason Start Date Expiration Date Visits Requ ested Visits Authorized [id number] Closed 10/15/2021 10/15/2022 99 99 Encounter Details Date Type Department Care Team Description 02/18/2022 Hospital Encounter Department of Merlyn Rose Neoplasm Of Uterus Endometrial (HCC); Laboratory Medicine [facility] Sam C.NLeopoldo, Pinky dong Chemotherapy Induced (HCC) in [place] M.S.[place]i [place] [address] [place] [address] 300 [place] [phone] Social History Tobacco Use Types Packs/Day Years [...] place to sleep or slept in a prison (including now)? Education Answer Date Recorded What is the highest level of school Bachelor's degree (e.g., BA, AB, 07/20/2021 you have completed or the highest BS) degree you have received? 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 200 [place] [phone] 05/05/2022 Appointment Radiation Oncology Judy Mccall M.D. 200 [place] [phone] 05/06/2022 Appointment Radiation Oncology Judy Mccall M.D. 200 [place] [phone] 05/06/2022 Appointment Radiation Oncology Judy Mccall M.D. [address] [place] [phone] 05/07/2022 Appointment Radiation Oncology Judy Mccall M.D. [address] [place] [phone] 05/08/2022 Appointment Radiation Oncology Judy Mccall M.D. [address] [place] [phone] 05/22/2022 Clinical Communication Admitting/Central Scheduling 05/26/2022 Appointment Radiology Merlyn Rose APRN, C.N.Abdirashid, M.S.N. [address] [place] [phone] 05/27/2022 Office Visit Oncology Merlyn Rose APRN, C.N.PYi, M.S.N. [address] [place] [phone] documented as of this encounter Procedures Procedure Name Priority Date/Time Associated Diagnosis Comme nts CBC WITH DIFFERENTIAL, Routine 02/18/2022 10:41 Malignant Neop lasm Results for this B AM CDT Of Uterus procedure are i n Endometrial (HCC ) the results Neutropenia section. Chemotherapy Induced (HCC) COMPREHENSIVE Routine 02/18/2022 10:41 Malignant Neoplasm Resu lts for this METABOLIC PANEL, S/P AM CDT Of Uterus procedu re are in Endometrial (HCC ) the results Neutropenia section. Chemotherapy Induced (HCC) documented in this encounter Results Comprehensive Metabolic Panel (02/18/2022 10:41 AM CDT) [...] CDT eGFR-Black/Afric 88 >=60 02/18/2022 [facility] an Iranian mL/min/BSA 2:12 PM CDT Comment: ----ADDITIONAL INFORMATION---- [...] Organization Address City/State/ZIP Code Phon e Number [facility]- [address] [place] [address] [facility] [place] [address] System in [place] [address] (ABNORMAL) CBC with Differential, Blood (02/18/2022 10:41 AM CDT) [facility] Method Time Signature Hemoglobin 9.6 (L) 11.6 - 02/18/2022 FB60 15.0 g/dL 10:51 AM CDT Hematocrit 30.5 (L) 35.5 - 02/18/2022 FB60 44.9 % 10:51 AM CDT Erythrocytes 2.98 (L) 3.92 - 02/18/2022 FB60 5.13 10:51 AM CDT x10(12)/L MCV 102.3 (H) 78.2 - 02/18/2022 FB60 97.9 fL 10:51 AM CDT RBC Distrib Width 18.0 (H) 12.2 - 02/18/2022 FB60 16.1 % 10:51 AM CDT Platelet Count 95 (L) 157 - 371 02/18/2022 FB60 x10(9)/L 10:51 AM CDT Leukocytes 3.8 3.4 - 9.6 02/18/2022 FB60 x10(9)/L 10:51 AM CDT Neutrophils 2.09 1.56 - 02/18/2022 FB60 6.45 10:51 AM CDT x10(9)/L Lymphocytes 1.12 0.95 - 02/18/2022 FB60 3.07 10:51 AM CDT x10(9)/L Monocytes 0.53 0.26 - 02/18/2022 FB60 0.81 10:51 AM CDT x10(9)/L Eosinophils 0.03 0.03 - 02/18/2022 FB60 0.48 10:51 AM CDT x10(9)/L Basophils 0.02 0.01 - 02/18/2022 FB60 0.08 10:51 AM CDT x10(9)/L Specimen Anatomical Collection Method Collection Time Receive d Time (Source) Location / / Volume Laterality Blood (Blood, 02/18/2022 10:41 02/18/2022 Venous) AM CDT 10:42 AM CDT Merlyn Rose APRN C.N.P., M.S.N. LAB BLOOD ADD-ON Performing Organization Address City/State/ZIP Code Phon e Number [facility]- [facility] [place] [address] [facility] [place] [address] [address] documented in this encounter Visit Diagnoses Diagnosis Malignant Neoplasm Of Uterus Endometrial (HCC) Neutropenia Chemotherapy Induced (HCC) documented in this encounter Care Teams Senior Underwriter Relationship Specialty Start Date End Date Elsewhere, Pcp PCP - General Internal Medicine 10/01/21 documented as of this encounter
--- OUTSIDE RECORDS SUMMARY | 2022-05-01 16:12 | XMS_ITS | Encounter Summary ---
:1950 Author Organization [facility] Address [address] [place] [address] Care Team Providers Name Role Phone Elsewhere, Pcp Primary Care Provider Unavailable Reason for Visit Episode Based Medications (Routine) - Closed Specialty Diagnoses / Procedures Referred By Contact Refer red To Contact Diagnoses Malignant Neoplasm Of Uterus Endometrial (HCC) Neutropenia Chemotherapy Induced (HCC) Merlyn Rose APRN, adalgisa Onc Trip Sumner, M.S.N. [address] [place] [address] [place] [phone] Referral ID Status Reason Start Date Expiration Date Visits Requ ested Visits Authorized [id number] Closed 10/15/2021 10/15/2022 99 99 Encounter Details Date Type Department Care Team Description 01/30/2022 Infusion Department of Oncology Merlyn Rose, Malignant Neoplasm Of Uterus Endometrial (HCC) (Primary Dx); in [facility] Burak CALLE, Neutropenia C hemotherapy Induced (HCC); [place] M.S.N. Multiple Subsegmental Pulmonary Embolism Without Acute Cor Pulmonale (HCC) [address] [facility] [address] [place] [phone] (Wo rk) Social History Tobacco Use Types [...] or relatives? How often do you attend presybeterian or More than 4 times per year 03/17/2022 yazidi services? Do you belong to any clubs or Yes 03/17/2022 organizations such as presybeterian groups, unions, fraternal or athletic groups, or [...] place to sleep or slept in a care home (including now)? Education Answer Date Recorded What is the highest level of school Bachelor's degree (e.g., BA, AB, 07/20/2021 you have completed or the highest BS) degree you have received? 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 [address] [place] [phone] 05/05/2022 Appointment Radiation Oncology Judy Mccall M.D. [address] [place] [phone] 05/06/2022 Appointment Radiation Oncology Judy Mccall M.D. [address] [place] [phone] 05/06/2022 Appointment Radiation Oncology Judy Mccall M.D. [address] [place] [phone] 05/07/2022 Appointment Radiation Oncology Judy Mccall M.D. [address] [place] [phone] 05/08/2022 Appointment Radiation Oncology Judy Mccall M.D. [address] [place] [phone] 05/22/2022 Clinical Communication Admitting/Central Scheduling 05/26/2022 Appointment Radiology Merlyn Rose APRN, C.N.P., M.S.N. [address] [place] [phone] 05/27/2022 Office Visit Oncology Merlyn Rose APRN C.N.P., M.S.N. [address] [place] [phone] documented as of this encounter Visit Diagnoses Diagnosis Malignant Neoplasm Of Uterus Endometrial (HCC) - Primary Neutropenia Chemotherapy Induced (HCC) Multiple Subsegmental Pulmonary Embolism Without Acute Cor Pulmonale (HCC) documented in this encounter Administered Medications Inactive Administered Medications - up to 3 most recent administrations Medication Order MAR Action Action Date Dose Rate Site CARBOplatin 570 mg in NaCl New Bag 01/30/2022 3:44 PM CDT 570 mg 664 mL/hr 0.9% 332 mL IVPB (PARAPLATIN) 570 mg (rounded from 567 mg, Target AUC = 5), intravenous, at 664 mL/hr, Administer over 30 Minutes, Once, On Betty 01/30/22 at 1500, For 1 dose dexamethasone in NaCl 0.9% IVPB 12 New Bag 01/30/2022 11:32 AM CDT 12 mg 200 mL/hr mg (DECADRON) 12 mg, intravenous, at 200 mL/hr, Administer over 15 Minutes, Once, On Betty 01/30/22 at 1130, For 1 dose, Give prior to PACLitaxel Refrigerate diphenhydrAMINE injection 50 mg (BENADRY L) Given 01/30/2022 11:35 AM CDT 50 mg 50 mg, intravenous, Once, On Betty 01/30/22 at 1130, For 1 dose, Give prior to PACLitaxel. famotidine injection 20 mg (PEPCID) Given 01/30/2022 11:35 AM CDT 20 mg 20 mg, intravenous, Once, On Betty 01/30/22 at 1130, For 1 dose, Give prior to PACLitaxel fosaprepitant in NaCl 0.9% IVPB New Bag 01/30/2022 12:16 PM CD T 150 mg 500 mL/hr 150 mg (EMEND) 150 mg, intravenous, at 500 mL/hr, Administer over 30 Minutes, Once, On Betty 01/30/22 at 1130, For 1 dose, Incompatible with solutions containing divalent cations (calcium, magnesium) including lactated Ringer's solution. ondansetron in NaCl 0.9% IVPB 16 mg New Bag 01/30/2022 11:57 A M CDT 16 mg 232 mL/hr (ZOFRAN) 16 mg, intravenous, at 232 mL/hr, Administer over 15 Minutes, Once, On Betty 01/30/22 at 1130, For 1 dose PACLitaxeL 288 mg in NaCl 0.9% New Bag 01/30/2022 1:03 PM CDT 288 mg 108 mL/hr (non-PVC) 323 mL IVPB (TAXOL) 288 mg (rounded from 289.8 mg = 140 mg/m2 ? 2.07 m2 Treatment Plan BSA from Measured weight), intravenous, at 108 mL/hr, Administer over 3 Hours, Once, On Betty 01/30/22 at 1302, For 1 dose, Administer via 0.22 micron in-line filter. pegfilgrastim on-body injector Given 01/30/2022 3:45 PM CDT 6 mg Left Upper Abdomen 6 mg (NEULASTA ONPRO) 6 mg, subcutaneous, Once, On Betty 01/30/22 at 1530, For 1 dose, I discussed options with patient: Did not discuss with patient documented in this encounter Care Teams Dynamic Balancer Relationship Specialty Start Date End Date Elsewhere, Pcp PCP - General Internal Medicine 10/01/21 documented as of this encounter
--- OUTSIDE RECORDS SUMMARY | 2022-05-01 16:12 | XMS_ITS | Encounter Summary ---
:1950 Author Organization [facility] Address [address] [place] [address] Care Team Providers Name Role Phone Elsewhere, Pcp Primary Care Provider Unavailable Encounter Details Date Type Department Care Team Description 01/27/2022 Clinical Communication Department of Gibran Muniz Oncology in M.D., Ph.D. [place], [place] [address] [facility] [address] [place] [phone] Social History Tobacco Use Types Packs/Day Years [...] or relatives? How often do you attend anglican or More than 4 times per year 03/17/2022 muslim services? 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 [address] [place] [phone] 05/05/2022 Appointment Radiation Oncology Judy Mccall M.D. [address] [place] [phone] 05/06/2022 Appointment Radiation Oncology Judy Mccall M.D. [address] [place] [phone] 05/06/2022 Appointment Radiation Oncology Judy Mccall M.D. [address] [place] [phone] 05/07/2022 Appointment Radiation Oncology Judy Mccall M.D. [address] [place] [address] [phone] 05/08/2022 Appointment Radiation Oncology Judy Mccall M.D. [address] [place] [phone] 05/22/2022 Clinical Communication Admitting/Central Scheduling 05/26/2022 Appointment Radiology Merlyn Rose APRN, C.N.P., M.S.N. [address] [place] [phone] 05/27/2022 Office Visit Oncology Merlyn Rose APRN, C.N.P., M.S.N. [address] [place] [phone] Scheduled Orders Name Type Priority Associated Diagnoses Order S chedule CBC with Differential, Lab Routine Malignant Neoplasm Of every 3 weeks as needed Blood Uterus Endometrial for chemo for 3 (HCC) Occurrences sta rting 01/27/2022 unti l 04/29/2023, 1 c ompleted Comprehensive Metabolic Lab Routine Malignant Neoplas m Of every 3 weeks and as Panel Uterus Endometrial needed fo r chemo for 3 (HCC) Occurrences sta rting 01/27/2022 unti l 04/29/2023, 1 c ompleted documented as of this encounter Results Comprehensive Metabolic Panel (01/28/2022 11:30 AM CDT) P athologist Signature Potassium, P 4.1 3.6 - 5.2 01/28/2022 [facility] mmol/L 1:44 PM CDT Sodium, P 139 135 - 145 01/28/2022 [facility] mmol/L 1:44 PM CDT Chloride, P 102 98 - 107 01/28/2022 [facility] mmol/L 1:44 PM CDT Bicarbonate, P 25 22 - 29 01/28/2022 [facility] mmol/L 1:44 PM CDT Anion Gap, P 12 7 - 15 01/28/2022 [facility] 1:44 PM CDT BUN (Blood Urea 13 6 - 21 01/28/2022 [facility] Nitrogen), P mg/dL 1:44 PM CDT Creatinine 0.87 0.59 - 01/28/2022 [facility] 1.04 mg/dL 1:44 PM CDT eGFR-Black/Afric 78 >=60 01/28/2022 [facility] an Cuban mL/min/BSA 1:44 PM CDT Comment: ----ADDITIONAL INFORMATION---- Estimated GFR calculated using the 2009 CKD_EPI creatinine equation. eGFR Non-Black/ 67 >=60 mL/min/BSA 1:44 PM CDT [facility] Comment: ----ADDITIONAL INFORMATION---- Estimated GFR calculated using the 2009 CKD_EPI creatinine equation. Calcium, Total, P 9.7 8.8 - 10.2 mg/dL 01/28/2022 1:44 PM CDT [facility] Glucose, P 82 70 - 140 mg/dL 01/28/2022 1:44 PM CDT O PEDRO Protein, Total, P 6.7 6.3 - 7.9 g/dL 01/28/2022 1:44 P M CDT [facility] Albumin, P 4.3 3.5 - 5.0 g/dL 01/28/2022 1:44 PM CDT O PEDRO Aspartate Aminotransferase 22 8 - 43 U/L 01/28/2022 1 :44 PM CDT [facility] (AST), P Alkaline Phosphatase, P 94 35 - 104 U/L 01/28/2022 1: 44 PM CDT [facility] Alanine Aminotransferase (ALT), 11 7 - 45 U/L 022 1:44 PM CDT [facility] P Bilirubin, Total, P 0.2 <=1.2 mg/dL 01/28/2022 1:44 PM CDT [facility] Specimen Anatomical Collection Method Collection Time Receive d Time (Source) Location / / Volume Laterality Blood (Blood, 01/28/2022 11:30 01/28/2022 1:12 Venous) AM CDT PM CDT Merlyn Rose APRN, C.N.P., M.S.N. LAB BLOOD ADD-ON Performing Organization Address City/State/ZIP Code Phon e Number [facility]- [address] [place] [address] [place] [address] System in [place] [address] (ABNORMAL) CBC with Differential, Blood (01/28/2022 11:30 AM CDT) [facility] Method Time Signature Hemoglobin 10.4 (L) 11.6 - 01/28/2022 FB60 15.0 g/dL 12:19 PM CDT Hematocrit 32.4 (L) 35.5 - 01/28/2022 FB60 44.9 % 12:19 PM CDT Erythrocytes 3.36 (L) 3.92 - 01/28/2022 FB60 5.13 12:19 PM CDT x10(12)/L MCV 96.4 78.2 - 01/28/2022 FB60 97.9 fL 12:19 PM CDT RBC Distrib Width 19.5 (H) 12.2 - 01/28/2022 FB60 16.1 % 12:19 PM CDT Platelet Count 256 157 - 371 01/28/2022 FB60 x10(9)/L 12:19 PM CDT Leukocytes 4.5 3.4 - 9.6 01/28/2022 FB60 x10(9)/L 12:19 PM CDT Neutrophils 1.77 1.56 - 01/28/2022 FB60 6.45 12:19 PM CDT x10(9)/L Lymphocytes 1.89 0.95 - 01/28/2022 FB60 3.07 12:19 PM CDT x10(9)/L Monocytes 0.81 0.26 - 01/28/2022 FB60 0.81 12:19 PM CDT x10(9)/L Eosinophils 0.03 0.03 - 01/28/2022 FB60 0.48 12:19 PM CDT x10(9)/L Basophils 0.02 0.01 - 01/28/2022 FB60 0.08 12:19 PM CDT x10(9)/L Specimen Anatomical Collection Method Collection Time Receive d Time (Source) Location / / Volume Laterality Blood (Blood, 01/28/2022 11:30 01/28/2022 Venous) AM CDT 11:30 AM CDT Merlyn Rose APRN, C.N.P., M.S.N. LAB BLOOD ADD-ON Performing Organization Address City/State/ZIP Code Phon e Number [facility]- [address] [place] [address] [facility] [place] [address] System in [address] documented in this encounter Visit Diagnoses Diagnosis Malignant Neoplasm Of Uterus Endometrial (HCC) - Primary documented in this encounter Care Teams Estate Agent Relationship Specialty Start Date End Date Elsewhere, Pcp PCP - General Internal Medicine 10/01/21 documented as of this encounter
--- OUTSIDE RECORDS SUMMARY | 2022-05-01 16:12 | XMS_ITS | Encounter Summary ---
:1950 Author Organization [facility] Address [address] [place] [address] Care Team Providers Name Role Phone Elsewhere, Pcp Primary Care Provider Unavailable Encounter Details Date Type Department Care Team Description 01/29/2022 Clinical Communication Department of Lionel See Oncology in M.D., Ph.D. [place], [place] [address] [facility] [address] [place] [phone] Social History Tobacco Use Types Packs/Day Years [...] or relatives? How often do you attend judaism or More than 4 times per year 03/17/2022 bahai services? 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 [address] [place] [phone] 05/05/2022 Appointment Radiation Oncology Judy Mccall M.D. [address] [place] [address] [phone] 05/06/2022 Appointment Radiation Oncology Judy Mccall M.D. [address] [place] [address] [phone] 05/06/2022 Appointment Radiation Oncology Judy Mccall M.D. [address] [place] [address] [phone] 05/07/2022 Appointment Radiation Oncology Judy Mccall M.D. [address] [place] [address] [phone] 05/08/2022 Appointment Radiation Oncology Judy Mccall M.D. [address] [place] [address] [phone] 05/22/2022 Clinical Communication Admitting/Central Scheduling 05/26/2022 Appointment Radiology Merlyn Rose APRN, C.NLeopoldo, M.S.N. [address] [place] [phone] 05/27/2022 Office Visit Oncology Merlyn Rose APRN, C.N.P., M.S.N. [address] [place] [phone] documented as of this encounter Visit Diagnoses Not on filedocumented in this encounter Care Teams Skilled Nursing Facilities Professional Relationship Specialty Start Date End Date Elsewhere, Pcp PCP - General Internal Medicine 10/01/21 documented as of this encounter
--- OUTSIDE RECORDS SUMMARY | 2022-05-01 16:12 | XMS_ITS | Encounter Summary ---
:1950 Author Organization [facility] Address [address] [place] [address] Care Team Providers Name Role Phone Elsewhere, Pcp Primary Care Provider Unavailable Reason for Visit Episode Based Medications (Routine) - Closed Specialty Diagnoses / Procedures Referred By Contact Refer red To Contact Diagnoses Malignant Neoplasm Of Uterus Endometrial (HCC) Neutropenia Chemotherapy Induced (HCC) Merlyn Rose APRN, adalgisa Onc Trip Sumner, M.S.N. [address] [place] [address] [place] [phone] Referral ID Status Reason Start Date Expiration Date Visits Requ ested Visits Authorized [id number] Closed 10/15/2021 10/15/2022 99 99 Encounter Details Date Type Department Care Team Description 02/19/2022 Infusion Department of Oncology Merlyn Rose, Malignant Neoplasm Of Uterus Endometrial (HCC) (Primary Dx); in [facility] Burak CALLE, Neutropenia C hemotherapy Induced (HCC); [place] M.S.N. Multiple Subsegmental Pulmonary Embolism Without Acute Cor Pulmonale (HCC) [address] [facility] [address] [place] [phone] (Wo rk) Social History Tobacco Use Types [...] More than 4 times per year 03/17/2022 restorationism services? 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 200 [place] [phone] 05/05/2022 Appointment Radiation Oncology Judy Mccall M.D. 200 [place] [phone] 05/06/2022 Appointment Radiation Oncology Judy Mccall M.D. [address] [place] [phone] 05/06/2022 Appointment Radiation Oncology Judy Mccall M.D. [address] [place] [phone] 05/07/2022 Appointment Radiation Oncology Judy Mccall M.D. [address] [place] [phone] 05/08/2022 Appointment Radiation Oncology Judy Mccall M.D. [address] [place] [phone] 05/22/2022 Clinical Communication Admitting/Central Scheduling 05/26/2022 Appointment Radiology Merlyn Rose APRN, C.N.P., M.S.N. [address] [place] [phone] 05/27/2022 Office Visit Oncology Merlyn Rose APRN C.N.P., M.S.N. [address] [place] [phone] documented as of this encounter Visit Diagnoses Diagnosis Malignant Neoplasm Of Uterus Endometrial (HCC) - Primary Neutropenia Chemotherapy Induced (HCC) Multiple Subsegmental Pulmonary Embolism Without Acute Cor Pulmonale (HCC) documented in this encounter Administered Medications Inactive Administered Medications - up to 3 most recent administrations Medication Order MAR Action Action Date Dose Rate Site CARBOplatin 490 mg in NaCl New Bag 02/19/2022 3:55 PM CDT 490 mg 648 mL/hr 0.9% 324 mL IVPB (PARAPLATIN) 490 mg (rounded from 494.4 mg, Target AUC = 4), intravenous, at 648 mL/hr, Administer over 30 Minutes, Once, On Thu02/19/22 at 1515, For 1 dose dexamethasone in NaCl 0.9% IVPB 12 New Bag 02/19/2022 12:27 PM CDT 12 mg 200 mL/hr mg (DECADRON) 12 mg, intravenous, at 200 mL/hr, Administer over 15 Minutes, Once, On Thu02/19/22 at 1145, For 1 dose, Give prior to PACLitaxel Refrigerate diphenhydrAMINE injection 50 mg (BENADRY L) Given 02/19/2022 12:01 PM CDT 50 mg 50 mg, intravenous, Once, On Thu02/19/22 at 1145, For 1 dose, Give prior to PACLitaxel. famotidine injection 20 mg (PEPCID) Given 02/19/2022 11:59 AM CDT 20 mg 20 mg, intravenous, Once, On Thu02/19/22 at 1145, For 1 dose, Give prior to PACLitaxel fosaprepitant in NaCl 0.9% IVPB New Bag 02/19/2022 12:45 PM CD T 150 mg 500 mL/hr 150 mg (EMEND) 150 mg, intravenous, at 500 mL/hr, Administer over 30 Minutes, Once, On Thu02/19/22 at 1145, For 1 dose, Incompatible with solutions containing divalent cations (calcium, magnesium) including lactated Ringer's solution. ondansetron in NaCl 0.9% IVPB 16 mg New Bag 02/19/2022 12:07 P M CDT 16 mg 232 mL/hr (ZOFRAN) 16 mg, intravenous, at 232 mL/hr, Administer over 15 Minutes, Once, On Thu02/19/22 at 1145, For 1 dose PACLitaxeL 216 mg in NaCl 0.9% New Bag 02/19/2022 1:24 PM CDT 216 mg 104 mL/hr (non-PVC) 311 mL IVPB (TAXOL) 216 mg (rounded from 217.35 mg = 105 mg/m2 ? 2.07 m2 Treatment Plan BSA from Measured weight), intravenous, at 104 mL/hr, Administer over 3 Hours, Once, On Thu02/19/22 at 1215, For 1 dose, Administer via 0.22 micron in-line filter. pegfilgrastim on-body injector Given 02/19/2022 3:58 PM CDT 6 mg Left Lower Abdomen 6 mg (NEULASTA ONPRO) 6 mg, subcutaneous, Once, On Thu02/19/22 at 1145, For 1 dose, I discussed options with patient: Did not discuss with patient documented in this encounter Care Teams Drier Take Off Tender Relationship Specialty Start Date End Date Elsewhere, Pcp PCP - General Internal Medicine 10/01/21 documented as of this encounter
--- OUTSIDE RECORDS SUMMARY | 2022-05-01 16:12 | XMS_ITS | Encounter Summary ---
:1950 Author Organization [facility] Address [address] [place] [address] Care Team Providers Name Role Phone Elsewhere, Pcp Primary Care Provider Unavailable Encounter Details Date Type Department Care Team Description 02/06/2022 Documentation Department of Oncology in Alecia Leyva M.D. [place], [place] [address] [facility] [address] [place] [phone] (Wo rk) Social History Tobacco Use Types [...] or relatives? How often do you attend alevism or More than 4 times per year 03/17/2022 roman catholic services? 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 - 02/06/2022 6:06 PM CDT Ms. 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 Reports that yesterday evening she had an episode of diarrhea followed by vomiting. She subsequently to bloody stools at 10:30 p.m. and 1:00 a.m. in the morning. She has been feeling a little nauseated but was able to eat throughout the day today. However, she has noted that she has been having nonbloody some diarrhea again occurring about 5 times today. Started having severe chills this evening. She checked her temperature and this was normal. She has had episodes of neutropenia throughout her chemotherapy cycles and I am worried for possibleinfectious cause as this is around the time of her neutrophil jaycee. She notes that with her chemotherapy she tends to be more constipated rather than having liquid stools. I have recommended that she be evaluated in the [facility] for possible infectious etiology such as colitis (C. Diff or other infections) with full infectious workup including blood cultures. I have called the [facility] ER for report. documented in this encounter Plan of Treatment Upcoming Encounters Date Type Specialty Care Team Description 05/02/2022 Appointment Radiation Oncology Dot Lopez M.D. [address] [place] [phone] 05/05/2022 Appointment Radiation Oncology Judy Mccall M.D. [address] [place] [phone] 05/06/2022 Appointment Radiation Oncology Judy Mccall M.D. [address] [place] [phone] 05/06/2022 Appointment Radiation Oncology Judy Mccall M.D. [address] [place] [phone] 05/07/2022 Appointment Radiation Oncology Judy Mccall M.D. [address] [place] [phone] 05/08/2022 Appointment Radiation Oncology Judy Mccall M.D. [address] [place] [phone] 05/22/2022 Clinical Communication Admitting/Central Scheduling 05/26/2022 Appointment Radiology Merlyn Rose APRN C.N.P., M.S.N. [address] [place] [phone] 05/27/2022 Office Visit Oncology Merlyn Rose APRN C.N.P., M.S.N. [address] [place] [phone] documented as of this encounter Visit Diagnoses Not on filedocumented in this encounter Care Teams Residential Program Coordinator Relationship Specialty Start Date End Date Elsewhere, Pcp PCP - General Internal Medicine 10/01/21 documented as of this encounter
--- OUTSIDE RECORDS SUMMARY | 2022-05-01 16:12 | XMS_ITS | Encounter Summary ---
:1950 Author Organization [facility] Address [address] [place] [address] Care Team Providers Name Role Phone Elsewhere, Pcp Primary Care Provider Unavailable Encounter Details Date Type Department Care Team Description 02/06/2022 Orders Only Department of Oncology in Alecia Leyva M.D. [place], [place] [address] [facility] [address] [place] [phone] (Wo rk) Social History Tobacco Use Types [...] More than 4 times per year 03/17/2022 pentecostalism services? 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 [address] [place] [phone] 05/05/2022 Appointment Radiation Oncology Judy Mccall M.D. [address] [place] [phone] 05/06/2022 Appointment Radiation Oncology Judy Mccall M.D. [address] [place] [phone] 05/06/2022 Appointment Radiation Oncology Judy Mccall M.D. [address] [place] [phone] 05/07/2022 Appointment Radiation Oncology Judy Mccall M.D. [address] [place] [phone] 05/08/2022 Appointment Radiation Oncology Judy Mccall M.D. [address] [place] [phone] 05/22/2022 Clinical Communication Admitting/Central Scheduling 05/26/2022 Appointment Radiology Merlyn Rose APRN, C.NAye., M.S.N. [address] [place] [phone] 05/27/2022 Office Visit Oncology Merlyn Rose APRN, C.N.P., M.S.N. [address] [place] [phone] documented as of this encounter Visit Diagnoses Not on filedocumented in this encounter Care Teams Orientation And Mobility Instructor Relationship Specialty Start Date End Date Elsewhere, Pcp PCP - General Internal Medicine 10/01/21 documented as of this encounter
--- OUTSIDE RECORDS SUMMARY | 2022-05-01 16:12 | XMS_ITS | Encounter Summary ---
:1950 Author Organization [facility] Address [address] [place] [address] Care Team Providers Name Role Phone Elsewhere, Pcp Primary Care Provider Unavailable Reason for Visit Reason Comments duloxetine Encounter Details Date Type Department Care Team Description 02/14/2022 Clinical Communication Department of Sirisha Mancuso , duloxetine Oncology in M.S.N., R.N. [place], [place] [address] [facility] [address] [place] [phone] Social History Tobacco Use Types Packs/Day Years [...] or relatives? How often do you attend catholic or More than 4 times per year 03/17/2022 yarsanism services? Do you belong to any clubs or Yes 03/17/2022 organizations such as catholic groups, unions, fraternal or athletic groups, or [...] place to sleep or slept in a fci (including now)? Education Answer Date Recorded What is the highest level of school Bachelor's degree (e.g., BA, AB, 07/20/2021 you have completed or the highest BS) degree you have received? Sex Assigned at Date Recorded Female 07/20/2021 9:20 PM GENERAL OPERATIONS AGENT documented as of this encounter Miscellaneous Notes Telephone Encounter - Zelda Fernandez - 02/14/2022 11:28 AM CDT Do we have a valid auth to speak with caller? patient Reason for call: Patient called stating she is still having left foot pain. She went to the hospitalrecently. She was told a duloxetine could help with this. But to check with her oncology team to seeif this would be okay. Local is willing to prescribe it, just wants our okay. Thank you, Zelda Rst Onc Rogo Med AA Pod 2 documented in this encounter Plan of Treatment Upcoming Encounters Date Type Specialty Care Team Description 05/02/2022 Appointment Radiation Oncology Dot Lopez M.D. [address] [place] [phone] 05/05/2022 Appointment Radiation Oncology Judy Mccall M.D. [address] [place] [address] [phone] 05/06/2022 Appointment Radiation Oncology Judy Mccall M.D. [address] [place] [address] [phone] 05/06/2022 Appointment Radiation Oncology Judy Mccall M.D. [address] [place] [phone] 05/07/2022 Appointment Radiation Oncology Judy Mccall M.D. [address] [place] [phone] 05/08/2022 Appointment Radiation Oncology Judy Mccall M.D. [address] [place] [phone] 05/22/2022 Clinical Communication Admitting/Central Scheduling 05/26/2022 Appointment Radiology Merlyn Rose APRN, C.N.Anahi., M.S.N. [address] [place] [phone] 05/27/2022 Office Visit Oncology Merlyn Rose APRN, C.N.P., M.S.N. [address] [place] [phone] documented as of this encounter Visit Diagnoses Not on filedocumented in this encounter Care Teams Information Management Specialist Relationship Specialty Start Date End Date Elsewhere, Pcp PCP - General Internal Medicine 10/01/21 documented as of this encounter
--- OUTSIDE RECORDS SUMMARY | 2022-05-01 16:12 | XMS_ITS | Encounter Summary ---
:1950 Author Organization [facility] Address [address] [place] [address] Care Team Providers Name Role Phone Elsewhere, Pcp Primary Care Provider Unavailable Reason for Referral Radiation Therapy (Routine) - Authorized Specialty Diagnoses / Procedures Referred By Contact Refer red To Contact Diagnoses Malignant Neoplasm Of Uterus Endometrial (HCC) Dot Lopez M.D. [facility] Procedures Prior Auth Rad Tx [address] [place], [place] [phone] Referral ID Status Reason Start Date Expiration Date Visits V isits Requested Authorized [id number] Authorized 03/18/2022 03/18/2023 1 1 Encounter Details Date Type Department Care Team Description 03/18/2022 Orders Only Department of Mariluz Marshall Malignant Neoplasm Of Radiation Oncology in A, DATA PROCESSING SYSTEMS PROJECT PLANNER, C.N.P., [place] erus Endometrial [place], [place] D.N.PYi (HCC) (Primary Dx) [address] [facility] [address] [place] [phone] Social History Tobacco Use Types Packs/Day Years [...] or relatives? How often do you attend faith or More than 4 times per year 03/17/2022 catholic services? Do you belong to any clubs or Yes 03/17/2022 organizations such as faith groups, unions, fraternal or athletic groups, or [...] at Date Recorded Female 07/20/2021 9:20 PM MAT MACHINE TENDER documented as of this encounter Plan of Treatment Upcoming Encounters Date Type Specialty Care Team Description 05/02/2022 Appointment Radiation Oncology Dot Lopez M.D. 200 [place] [phone] 05/05/2022 Appointment Radiation Oncology Judy Mccall M.D. [address] [place] [phone] 05/06/2022 Appointment Radiation Oncology Judy Mccall M.D. [address] [place] [phone] 05/06/2022 Appointment Radiation Oncology Judy Mccall M.D. [address] [place] [address] [phone] 05/07/2022 Appointment Radiation Oncology Judy Mccall M.D. [address] [place] [address] [phone] 05/08/2022 Appointment Radiation Oncology Judy Mccall M.D. [address] [place] [address] [phone] 05/22/2022 Clinical Communication Admitting/Central Scheduling 05/26/2022 Appointment Radiology Merlyn Rose APRN, C.NLeopoldo, M.S.N. [address] [place] [address] [phone] 05/27/2022 Office Visit Oncology Merlyn Rose APRN, C.NAye., M.S.N. [address] [place] [phone] Scheduled Orders Name Type Priority Associated Diagnoses Order S chedule Prior Auth Rad Radiation Oncology Routine Malignant Neoplasm O f Ordered: 03/18/2022 Tx Uterus Endometrial (HCC) documented as of this encounter Visit Diagnoses Diagnosis Malignant Neoplasm Of Uterus Endometrial (HCC) - Primary documented in this encounter Care Teams Kier Hand Relationship Specialty Start Date End Date Elsewhere, Pcp PCP - General Internal Medicine 10/01/21 documented as of this encounter
--- OUTSIDE RECORDS SUMMARY | 2022-05-01 16:12 | XMS_ITS | Encounter Summary ---
:1950 Author Organization [facility] Address [address] [place] [address] Care Team Providers Name Role Phone Elsewhere, Pcp Primary Care Provider Unavailable Encounter Details Date Type Department Care Team Description 03/19/2022 Orders Only Department of Ju Holliday Malignant Neoplasm Of Radiation Oncology in [phone] Uterus (HCC) (Primary [place], [place] (Work) Dx) [address] [place] [address] Social History Tobacco Use Types Packs/Day Years [...] or relatives? How often do you attend taoism or More than 4 times per year 03/17/2022 moravian services? Do you belong to any clubs or Yes 03/17/2022 organizations such as taoism groups, unions, fraternal or athletic groups, or [...] at Date Recorded Female 07/20/2021 9:20 PM TUNNEL ELASTIC OPERATOR LOCKSTITCH documented as of this encounter Plan of Treatment Upcoming Encounters Date Type Specialty Care Team Description 05/02/2022 Appointment Radiation Oncology Dot Lopez M.D. [address] [place] [phone] 05/05/2022 Appointment Radiation Oncology Judy Mccall M.D. [address] [place] [phone] 05/06/2022 Appointment Radiation Oncology Judy Mccall M.D. [address] [place] [phone] 05/06/2022 Appointment Radiation Oncology Judy Mccall M.D. [address] [place] [phone] 05/07/2022 Appointment Radiation Oncology Judy Mccall M.D. [address] [place] [phone] 05/08/2022 Appointment Radiation Oncology Judy Mccall M.D. [address] [place] [address] [phone] 05/22/2022 Clinical Communication Admitting/Central Scheduling 05/26/2022 Appointment Radiology Merlyn Rose APRN, C.N.P., M.S.N. [address] [place] [phone] 05/27/2022 Office Visit Oncology Merlyn Rose APRN, C.N.P., M.S.N. [address] [place] [phone] documented as of this encounter Visit Diagnoses Diagnosis Malignant Neoplasm Of Uterus (HCC) - Anais garcias documented in this encounter Care Teams Commission Auditor Relationship Specialty Start Date End Date Elsewhere, Pcp PCP - General Internal Medicine 10/01/21 documented as of this encounter
--- OUTSIDE RECORDS SUMMARY | 2022-05-01 16:12 | XMS_ITS | Encounter Summary ---
:1950 Author Organization [facility] Address [address] [place] [address] Care Team Providers Name Role Phone Elsewhere, Pcp Primary Care Provider Unavailable Reason for Visit Reason Comments MISC Form - Oxygen Script Encounter Details Date Type Department Care Team Description 01/23/2022 Clinical Communication Department of Gibran Muniz Form - Oxygen Oncology jose miguel Brooks M.D., Ph.D. Script [place], [address] [place] [address] [place] [phone] [place], [place] [phone] (Work) [phone] Social History Tobacco Use Types Packs/Day Years [...] at Date Recorded Female 07/20/2021 9:20 PM GREY STOCK RECORDER documented as of this encounter Miscellaneous Notes Telephone Encounter - Sirisha Mancuso M.S.N., R.N. - 01/24/2022 3:39 PM CDT Forms completed and put in provider mailbox on [address] documented in this encounter Plan of Treatment Upcoming Encounters Date Type Specialty Care Team Description 05/02/2022 Appointment Radiation Oncology Dot Lopez M.D. [address] [place] [phone] 05/05/2022 Appointment Radiation Oncology Judy Mccall M.D. [address] [place] [phone] 05/06/2022 Appointment Radiation Oncology Judy Mccall M.D. [address] [place] [phone] 05/06/2022 Appointment Radiation Oncology Judy Mccall M.D. [address] [place] [phone] 05/07/2022 Appointment Radiation Oncology Judy Mccall M.D. [address] [place] [phone] 05/08/2022 Appointment Radiation Oncology Judy Mccall M.D. [address] [place] [phone] 05/22/2022 Clinical Communication Admitting/Central Scheduling 05/26/2022 Appointment Radiology Merlyn Rose APRN, C.N.Anahi., M.S.N. [address] [place] [phone] 05/27/2022 Office Visit Oncology Merlyn Rose APRN, C.N.P., M.S.N. [address] [place] [phone] documented as of this encounter Visit Diagnoses Not on filedocumented in this encounter Care Teams Lead Network Engineer Relationship Specialty Start Date End Date Elsewhere, Pcp PCP - General Internal Medicine 10/01/21 documented as of this encounter
--- OUTSIDE RECORDS SUMMARY | 2022-05-01 16:12 | XMS_ITS | Encounter Summary ---
:1950 Author Organization [facility] Address [address] [place] [address] Care Team Providers Name Role Phone Elsewhere, Pcp Primary Care Provider Unavailable Reason for Referral Specialty Diagnoses / Procedures Referred By Contact Refer red To Contact Merlyn Rose APRN, [facility]opoldo[facility] [address] [place] [phone] Referral ID Status Reason Start Date Expiration Date Visits Requ ested Visits Authorized Scheduling Instructions Please schedule imaging prior to Medical Oncology return visit. Thank you. utpatient (Routine) - Authorized Specialty Diagnoses / Procedures Referred By Contact Refer red To Contact Merlyn Rose APRN, C.NLeopoldo, [facility] M.S.N. [address] [place] [phone] Referral ID Status Reason Start Date Expiration Date Visits V isits Requested Authorized [id number] Authorized 03/20/2022 03/20/2023 1 1 Scheduling Instructions Please schedule imaging prior to Medical Oncology return visit. Thank you. utpatient (Routine) - Authorized Specialty Diagnoses / Procedures Referred By Contact Samira red To Contact Oncology Merlyn Rose APRN, C.N.Anahi., [facility] M.S.N. [address] [place] [phone] Referral ID Status Reason Start Date Expiration Date Visits V isits Requested Authorized [id number] Authorized 03/20/2022 03/20/2023 1 1 Scheduling Instructions Please schedule imaging prior to Medical Oncology return visit. Thank you. RI/CAT/PET Scan (Routine) - Authorized Specialty Diagnoses / Procedures Referred By Contact Refer red To Contact Radiology Diagnoses Malignant Neoplasm Of Uterus Endometrial (HCC) [facility] Chest with IV Contrast C.N.P., M.S.N. [address] [place] [phone] Referral ID Status Reason Start Date Expiration Date Visits V isits Requested Authorized [id number] Authorized 03/20/2022 03/20/2023 1 1 RI/CAT/PET Scan (Routine) - Authorized Specialty Diagnoses / Procedures Referred By Contact Refer red To Contact Radiology Diagnoses Malignant Neoplasm Of Uterus Endometrial (HCC) [facility] CT Abdomen Pelvis with IV Contrast C.N.P., M.S.N. [address] [place] [phone] Referral ID Status Reason Start Date Expiration Date Visits V isits Requested Authorized [id number] Authorized 03/20/2022 03/20/2023 1 1 Reason for Visit Outpatient (Routine) - Closed Specialty Diagnoses / Procedures Referred By Contact Refer red To Contact Oncology Lionel See M. D., Ph.D. [facility] [address] [place] [phone] Referral ID Status Reason Start Date Expiration Date Visits Requ ested Visits Authorized [id number] Closed 01/29/2022 01/29/2023 1 1 Encounter Details Date Type Department Care Team Description 03/20/2022 Office Visit Department of [place], Nico Felix Neoplasm Of Oncology in [place], C.N.P., Uterus Endomet rial [place], [place] M.S.N. (HCC) (Primary Dx) 200 [facility] 200 [place] [phone] Social History Tobacco Use Types Packs/Day Years [...] or relatives? How often do you attend jainism or More than 4 times per year 03/17/2022 voodoo services? 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 - 03/20/2022 2:00 PM CDT SUBJECTIVE CHIEF COMPLAINT/PUPROSE OF VISIT Ms. Pavon is a 71 y.o. woman with stage IIIC2 serous endometrial cancer Collaborating provider: Dr. Lionel See [phone]) HISTORY OF PRESENT ILLNESS Ms. Pavon is a very pleasant 71 y.o. woman with the following oncologic history: Oncology History Malignant Neoplasm Of Uterus Endometrial (HCC) Genetic Testing and Tumor Genotyping IHC: Normal expression of MLH1, MSH2, MSH6, and PMS2 HER2 negative Negative germline genetic testing in 2021; Breast and Catheter Finisher And Inspector + Colorectal Cancers panel through [facility]. 08/12/2021 Initial Diagnosis Began experiencing PMB [...] neuropathy. CARBOplatin AUC 6 / PACLitaxel ( BALLING MACHINE OPERATOR ) Start Date: 10/22/2021 03/31/2022 - Radiation Therapy Radiation Therapy Treatment Details (Noted on 03/18/2022) Site: Not Applicable Pelvis Technique: No technique specified Goal: Curative Planned Treatment Start Date: 03/31/2022 INTERVAL HISTORY: Ms. Pavon presents today with her for a roughly 4 week follow-up visit post completion of 6cycles of chemotherapy for her newly diagnosed serous endometrial cancer. She notes she did have significant fatigue for roughly 10 days after completion of her 6th cycle of treatment. She notes she did spend the majority of her time sleeping, and did feel lightheaded and dizzy with ambulation. She notes that this has improved significantly over the course of the last couple of weeks. She notes she continues to struggle with hydration, but has been trying to push fluids over the last week. She does continue to note intermittent lightheadedness, but denies any falling. She notes she did have an episode diarrhea for roughly 24 hours last week, but attributes this to eating sweet corn. She otherwise feels she is eating without issue, and denies urinary concerns, additional bowel changes, or vaginal bleeding/discharge. She notes the neuropathy in her toes and ball of her feet have improved over the last few weeks. She does note shortness of breath with exertion, but this resolves quickly with rest. REVIEW OF SYSTEMS Pertinent items are noted in HPI; all other review of systems were negative. OBJECTIVE VITAL SIGNS Vitals Blood Pressure: 119/73, Temperature: 36.4 ??C, Temp Source: Tympanic, Pulse Rate: 78, Resp Rate: 16, SpO2: 97 %, Height: 165.3 cm, Weight: 89.5 kg BP Readings from Last 1 Encounters: 03/20/22 119/73 Pulse Readings from Last 1 Encounters: 03/20/22 78 Temp Readings from Last 1 Encounters: 03/20/22 36.4 ??C (Tympanic) No data recorded PHYSICAL EXAMINATION [...] and diagnostic data. ASSESSMENT / PLAN #1 Stage IIIC2 serous endometrial cancer #2 Microsatellite stable #3 HER2 negative Ms. Pavon presents today with her for evaluation following completion of 6 cycles of carboplatin and paclitaxel chemotherapy for her newly diagnosed serous endometrial cancer. Her labs were reviewed, and are notable for mild neutropenia and anemia. We discussed that this should continue to recover with time off of chemotherapy. I do anticipate that some of her shortness of breath could be attributable to the anemia as well as deconditioning with chemotherapy treatment. We spent time reviewing through results of her CT imaging, which revealed a new 0.5 cm nodule just adjacent to her bladder, which is indeterminate at this time for disease. Another area in the pelvis has decreased in size since imaging that was completed in August. There is no additional evidence of recurrent or metastatic disease in the abdomen or pelvis. CT of the chest did indicate a few small tiny nodules, which we discussed are also indeterminate at this time. In regard to the nodule adjacent to her bladder as wellas a nodule in her left pelvis we discussed that if she proceeds with radiation, it is likely that these would be in the radiation field. She has a appointment to meet with this afternoon in regard to potential for radiation therapy. She understands that from my standpoint, we will plan to con tinue to monitor these areas. I will plan to see her back in roughly [address] imaging and examination. This should allow time for completion of radiation and evaluation beyond this time point. We discussed a plan for survivorship Education to be completed at her next return visit. She verbalized understanding of this information, as no further questions or concerns at this time. She agrees to contact us in the interim if she develops any new or concerning symptoms prior to her next planned return visit. PATIENT EDUCATION Ready to learn, no apparent learning barriers were identified; learning preferences include listening. Explained diagnosis and treatment plan; patient expressed understanding of the content. documented in this encounter Plan of Treatment Upcoming Encounters Date Type Specialty Care Team Description 05/02/2022 Appointment Radiation Oncology Dot Lopez M.D. [address] [place] [phone] 05/05/2022 Appointment Radiation Oncology Judy Mccall M.D. [address] [place] [phone] 05/06/2022 Appointment Radiation Oncology Judy Mccall M.D. [address] [place] [phone] 05/06/2022 Appointment Radiation Oncology Judy Mccall M.D. [address] [place] [phone] 05/07/2022 Appointment Radiation Oncology Judy Mccall M.D. [address] [place] [phone] 05/08/2022 Appointment Radiation Oncology Judy Mccall M.D. [address] [place] [phone] 05/22/2022 Clinical Communication Admitting/Central Scheduling 05/26/2022 Appointment Radiology Merlyn Rose APRN C.N.PYi, M.S.N. [address] [place] [phone] 05/27/2022 Office Visit Oncology Merlyn Rose APRN C.N.PYi, M.S.N. [address] [place] [phone] Scheduled Orders Name Type Priority Associated Diagnoses Order S chedule CT Abdomen Pelvis Imaging RAD - Routine (most Malignant Neopla sm Of Expected: with IV Contrast inpatients and all Uterus Endometrial 05/27/2022, outpatients) (HCC) Expires: 01/19/2024 CT Chest with IV Imaging RAD - Routine (most Malignant Neoplas m Of Expected: Contrast inpatients and all Uterus Endometrial , outpatients) (HCC) Expires: 01/19/2024 Scheduled Referrals Name Type Priority Associated Diagnoses Order S chedule Oncology office visit Outpatient Referral Routine Expected: (clinic) Re-staging; 022, BALLING MACHINE OPERATOR Expires: 01/19/2024 Oncology - Outpatient Referral Routine Expected : Survivorship care 07/18/2022 , plan nurse visit Expires: (clinic) 01/19/2024 Patient Education - Outpatient Referral Routine Malignant Neop lasm Expected: Moving forward after Of Uterus , cancer treatment Endometrial (HCC) s: (clinic) 01/19/2024 documented as of this encounter Visit Diagnoses Diagnosis Malignant Neoplasm Of Uterus Endometrial (HCC) - Primary documented in this encounter Care Teams E Commerce Manager Relationship Specialty Start Date End Date Elsewhere, Pcp PCP - General Internal Medicine 10/01/21 documented as of this encounter
--- OUTSIDE RECORDS SUMMARY | 2022-05-01 16:12 | XMS_ITS | Encounter Summary ---
:1950 Author Organization [facility] Address [address] [place] [address] Care Team Providers Name Role Phone Elsewhere, Pcp Primary Care Provider Unavailable Encounter Details Date Type Department Care Team Description 01/28/2022 Hospital Encounter Department of Merlyn Rose Neoplasm Laboratory Medicine M, TOLL BRIDGE ATTENDANT, C.N.P., Of [facility] [place] in [place] .[facility] ([facility]) [address] [phone] Social History Tobacco Use Types Packs/Day Years [...] or relatives? How often do you attend confucianism or More than 4 times per year 03/17/2022 gnosticism services? Do you belong to any clubs or Yes 03/17/2022 organizations such as confucianism groups, unions, fraternal or athletic groups, or [...] place to sleep or slept in a chcf (including now)? Education Answer Date Recorded What is the highest level of school Bachelor's degree (e.g., BA, AB, 07/20/2021 you have completed or the highest BS) degree you have received? 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 fluticasone propionate Administer 2 sprays 0 07/0 03/2021 (FLONASE) 50 into nostril(s) 2 mcg/actuation [...] Appointment Radiation Oncology Dot Lopez M.D. [address] [place] [phone] 05/05/2022 Appointment Radiation Oncology Judy Mccall M.D. [address] [place] [phone] 05/06/2022 Appointment Radiation Oncology Judy Mccall M.D. [address] [place] [phone] 05/06/2022 Appointment Radiation Oncology Judy Mccall M.D. [address] [place] [phone] 05/07/2022 Appointment Radiation Oncology Judy Mccall M.D. [address] [place] [phone] 05/08/2022 Appointment Radiation Oncology Judy Mccall M.D. [address] [place] [phone] 05/22/2022 Clinical Communication Admitting/Central Scheduling 05/26/2022 Appointment Radiology Merlyn Rose APRN, C.N.P., M.S.N. [address] [place] [phone] 05/27/2022 Office Visit Oncology Merlyn Rose APRN, C.N.P., M.S.N. [address] [place] [phone] documented as of this encounter Procedures Procedure Name Priority Date/Time Associated Comments Diagnosis CBC WITH DIFFERENTIAL, Routine 01/28/2022 11:30 Malignant Neop lasm Results for this B AM CDT Of Uterus procedure are i n Endometrial (HCC) the result s section. COMPREHENSIVE Routine 01/28/2022 11:30 Malignant Neoplasm Resu lts for this METABOLIC PANEL, S/P AM CDT Of Uterus procedu re are in Endometrial (HCC) the result s section. documented in this encounter Results Comprehensive Metabolic Panel (01/28/2022 [...] CDT eGFR-Black/Afric 78 >=60 01/28/2022 OW[place] an Hungarian mL/min/BSA 1:44 PM CDT Comment: ----ADDITIONAL INFORMATION---- [...] Organization Address City/State/ZIP Code Phon e Number [facility]- [address] [place] [address] [place] [address] System in [place] [address] (ABNORMAL) CBC with Differential, Blood (01/28/2022 11:30 AM CDT) [facility] gist Method Time Signature Hemoglobin 10.4 (L) 11.6 [...] AM CDT 11:30 AM CDT Merlyn Rose APRN C.N.P., M.S.N. LAB BLOOD ADD-ON Performing Organization Address City/State/ZIP Code Phon e Number [facility]- [address] [place] [address] [facility] [address] [place] [address] System in [place] [address] documented in this encounter Visit Diagnoses Diagnosis Malignant Neoplasm Of Uterus Endometrial (HCC) documented in this encounter Care Teams Camp Nurse Relationship Specialty Start Date End Date Elsewhere, Pcp PCP - General Internal Medicine 10/01/21 documented as of this encounter
--- OUTSIDE RECORDS SUMMARY | 2022-05-01 16:12 | XMS_ITS | Encounter Summary ---
:1950 Author Organization [facility] Address [address] [place] [phone] Care Team Providers Name Role Phone Elsewhere, Pcp Primary Care Provider Unavailable Reason for Referral MRI/CAT/PET Scan (Routine) - Closed Specialty Diagnoses / Procedures Referred By Contact Refer red To Contact Radiology Diagnoses Malignant Neoplasm Of Uterus Endometrial (HCC) Lionel See M.D., [facility] Procedures CT Abdomen Pelvis with IV Contrast CT Abdomen Pelvis without and with IV Contrast Ph.D. [address] [place] [phone] Referral ID Status Reason Start Date Expiration Date Visits Requ ested Visits Authorized [id number] Closed 01/29/2022 01/29/2023 1 1 MRI/CAT/PET Scan (Routine) - Closed Specialty Diagnoses / Procedures Referred By Contact Refer red To Contact Radiology Diagnoses Malignant Neoplasm Of Uterus Endometrial (HCC) Lionel See M.D., [facility] Procedures CT Chest with IV Contrast Ph.D. [address] [place] [phone] Referral ID Status Reason Start Date Expiration Date Visits Requ ested Visits Authorized [id number] Closed 01/29/2022 01/29/2023 1 1 Reason for Visit MRI/CAT/PET Scan (Routine) - Closed Specialty Diagnoses / Procedures Referred By Contact Refer red To Contact Radiology Diagnoses Malignant Neoplasm Of Uterus Endometrial (HCC) Lionel See M.D., [facility] Procedures CT Chest with IV Contrast Ph.D. [address] [place] [phone] Referral ID Status Reason Start Date Expiration Date Visits Requ ested Visits Authorized [id number] Closed 01/29/2022 01/29/2023 1 1 Encounter Details Date Type Department Care Team Description 03/20/2022 Hospital Encounter Department of Lionel See Malign ant Neoplasm Radiology, Dave Schroeder M.D., Ph.D. Of [facility], in [address] [place] [address] Endometrial (HCC) [facility] [phone] [place] [address] [place], [place] (Work) [phone] Social History Tobacco Use Types Packs/Day Years [...] More than 4 times per year 03/17/2022 oriental orthodox services? 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 [address] [place] [phone] 05/05/2022 Appointment Radiation Oncology Judy Mccall M.D. [address] [place] [phone] 05/06/2022 Appointment Radiation Oncology Judy Mccall M.D. [address] [place] [phone] 05/06/2022 Appointment Radiation Oncology Judy Mccall M.D. [address] [place] [phone] 05/07/2022 Appointment Radiation Oncology Judy Mccall M.D. [address] [place] [phone] 05/08/2022 Appointment Radiation Oncology Judy Mccall M.D. [address] [place] [phone] 05/22/2022 Clinical Communication Admitting/Central Scheduling 05/26/2022 Appointment Radiology Merlyn Rose APRN, C.N.P., M.S.N. [address] [place] [address] [phone] 05/27/2022 Office Visit Oncology AnoopWinter noelruben Sam APRN, C.N.P., M.S.N. [address] [place] [phone] documented as of this encounter Procedures Procedure Name Priority Date/Time Associated Comments Diagnosis CT ABDOMEN PELVIS RAD - Routine 03/20/2022 10:21 Malignant Neoplasm Results for this WITH IV CONTRAST (most inpatients AM CDT Of Uterus procedu re are in and all Endometrial (HCC) the result s outpatients) section. CT CHEST WITH IV RAD - Routine 03/20/2022 10:21 Malignant Neoplasm Results for this CONTRAST (most inpatients AM CDT Of Uterus procedure a re in and all Endometrial (HCC) the result s outpatients) section. documented in this encounter Results CT Abdomen Pelvis with IV Contrast (03/20/2022 [...] by the treating provider and reviewed by [facility] radiologist to increase sensitivity for detection of [...] by the treating provider and reviewed by [facility] radiologist to increase sensitivity for detection of pulmonary nodules. IMPRESSION: 1. New 3 mm nodule in the right upper lo be. There are a couple of other indeterminate small nodules, which can be followed. 2. Improved aeration in the lung bases w ith decreased moderate atelectasis that was present on CT 10/02/2021. Lionel See M.D., Ph.D. IMG CT PROCEDURES documented in this encounter Visit Diagnoses Diagnosis Malignant Neoplasm Of Uterus Endometrial (HCC) documented in this encounter Administered Medications Inactive Administered Medications - up to 3 most recent administrations Medication Order MAR Action Action Date Dose Rate Site iohexoL 350 mg iodine/mL solution Given 03/20/2022 10:09 AM CDT 100 mL 1-200 mL (OMNIPAQUE) 1-200 mL, intravenous, Once in imaging, contrast, Starting on Betty 03/20/22 at 0935, For 1 dose, Imaging Protocol Orders, Dose per Radiant Medication Guidelines sodium chloride (PF) 0.9 % injection 1-1 00 mL Given 03/20/2022 10:09 AM CDT 50 mL 1-100 mL, intravenous, Once, On Betty 03/20/22 at 0945, For 1 dose, Imaging Protocol Orders documented in this encounter Care Teams Thread Marker Relationship Specialty Start Date End Date Elsewhere, Pcp PCP - General Internal Medicine 10/01/21 documented as of this encounter
--- OUTSIDE RECORDS SUMMARY | 2022-05-01 16:12 | XMS_ITS | Encounter Summary ---
:1950 Author Organization [facility] Address [address] [place] [address] Care Team Providers Name Role Phone Elsewhere, Pcp Primary Care Provider Unavailable Encounter Details Date Type Department Care Team Description 03/19/2022 Hospital Encounter Department of [facility], Lionel Sharp ant Neoplasm Laboratory Medicine SSarah., Ph. D. Of Uterus in [place], [address] [place] [address] Endometrial (HCC) [place], [place] [address] [facility] [address] [place], [place] [phone] (Work) [phone] Social History Tobacco Use Types Packs/Day Years [...] or relatives? How often do you attend cheondoism or More than 4 times per year 03/17/2022 cheondoism services? 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 documented as of this encounter Plan of Treatment Upcoming Encounters Date Type Specialty Care Team Description 05/02/2022 Appointment Radiation Oncology Dot Lopez M.D. [address] [place] [phone] 05/05/2022 Appointment Radiation Oncology Judy Mccall M.D. [address] [place] [phone] 05/06/2022 Appointment Radiation Oncology Judy Mccall M.D. [address] [place] [phone] 05/06/2022 Appointment Radiation Oncology Judy Mccall M.D. [address] [place] [phone] 05/07/2022 Appointment Radiation Oncology Judy Mccall M.D. [address] [place] [phone] 05/08/2022 Appointment Radiation Oncology Judy Mccall M.D. [address] [place] [phone] 05/22/2022 Clinical Communication Admitting/Central Scheduling 05/26/2022 Appointment Radiology Merlyn Rose APRN, C.N.P., M.S.N. [address] [place] [phone] 05/27/2022 Office Visit Oncology Merlyn Rose APRN, C.N.P., M.S.N. [address] [place] [phone] documented as of this encounter Procedures Procedure Name Priority Date/Time Associated Comments Diagnosis CBC WITH DIFFERENTIAL, B Routine 03/19/2022 10:38 Malignant Ne oplasm Results for this AM CDT Of Uterus procedure are i n Endometrial (HCC) the result s section. ASPARTATE Routine 03/19/2022 10:38 Malignant Neoplasm Resul ts for this AMINOTRANSFERASE (AST), AM CDT Of Uterus proc edure are in S/P Endometrial (HCC) the result s section. SODIUM, S/P Routine 03/19/2022 10:38 Malignant Neoplasm Resul ts for this AM CDT Of Uterus procedure are i n Endometrial (HCC) the result s section. POTASSIUM, S/P Routine 03/19/2022 10:38 Malignant Neoplasm Res ults for this AM CDT Of Uterus procedure are i n Endometrial (HCC) the result s section. ALKALINE PHOSPHATASE, Routine 03/19/2022 10:38 Malignant Neopl asm Results for this S/P AM CDT Of Uterus procedure are i n Endometrial (HCC) the result s section. CREATININE WITH EGFR, Routine 03/19/2022 10:38 Malignant Neopl asm Results for this S/P AM CDT Of Uterus procedure are i n Endometrial (HCC) the result s section. BILIRUBIN, TOT, S/P Routine 03/19/2022 10:38 Malignant Neoplas m Results for this AM CDT Of Uterus procedure are i n Endometrial (HCC) the result s section. documented in this encounter Results Sodium (03/19/2022 10:38 AM CDT) P athologist Signature Sodium, P 142 135 - 145 03/19/2022 2:02 [place] mmol/L PM CDT Specimen Anatomical Collection Method Collection Time Receive d Time (Source) Location / / Volume Laterality Blood (Blood, 03/19/2022 10:38 03/19/2022 1:26 Venous) AM CDT PM CDT Lionel See M.D., Ph.D. LAB BLOOD ADD-ON Performing Organization Address City/State/ZIP Code Phon e Number [facility]- [address] [place] [address] [facility] [address] System in [place] [address] Potassium (03/19/2022 10:38 AM CDT) P athologist Signature Potassium, P 4.1 3.6 - 5.2 03/19/2022 [place] mmol/L 2:02 PM CDT Specimen Anatomical Collection Method Collection Time Receive d Time (Source) Location / / Volume Laterality Blood (Blood, 03/19/2022 10:38 03/19/2022 1:26 Venous) AM CDT PM CDT Lionel See M.D., Ph.D. LAB BLOOD ADD-ON Performing Organization Address City/State/ZIP Code Phon e Number [facility]- [address] [facility] [place] [address] [place] [address] System in [place] [address] Creatinine with Estimated GFR (03/19/2022 10:38 AM CDT) P athologist Signature Creatinine 0.78 0.59 - 03/19/2022 [place] 1.04 mg/dL 2:02 PM CDT eGFR-Black/Afric 88 >=60 03/19/2022 [facility] an Filipino mL/min/BSA 2:02 PM CDT Comment: ----ADDITIONAL INFORMATION---- [...] Organization Address City/State/ZIP Code Phon e Number [facility]- [address] [place] [address] [facility] [place] [address] System in [place] [address] (ABNORMAL) CBC with Differential, Blood (03/19/2022 10:38 AM CDT) [facility] Method Time Signature Hemoglobin 8.7 (L) 11.6 [...] Organization Address City/State/ZIP Code Phon e Number [facility]- [address] [place] [address] [facility] [address] [place] [address] Bilirubin, Total (03/19/2022 10:38 AM CDT) P athologist Signature Bilirubin, 0.3 <=1.2 mg/dL 03/19/2022 [place] Total, P 2:02 PM CDT Specimen Anatomical Collection Method Collection Time Receive d Time (Source) Location / / Volume Laterality Blood (Blood, 03/19/2022 10:38 03/19/2022 1:26 Venous) AM CDT PM CDT Lionel See M.D., Ph.D. LAB BLOOD ADD-ON Performing Organization Address City/[facility]/ZIP Code Phon e Number [facility]- [address] [place] [address] [place] [address] System in [place] [address] AST (Aspartate Aminotransferase) (03/19/2022 10:38 AM CDT) [...] Organization Address City/State/ZIP Code Phon e Number [facility]- [address] [place] [address] [place] [address] System in [place] [address] [facility] Alkaline Phosphatase (03/19/2022 10:38 AM CDT) P athologist Signature Alkaline 83 35 - 104 03/19/2022 [place] Phosphatase, P U/L 2:02 PM CDT Specimen Anatomical Collection Method Collection Time Receive d Time (Source) Location / / Volume Laterality Blood (Blood, 03/19/2022 10:38 03/19/2022 1:26 Venous) AM CDT PM CDT Lionel See M.D., Ph.D. LAB BLOOD ADD-ON Performing Organization Address City/State/ZIP Code Phon e Number [facility]- [address] [place] [address] [facility] [place] [place] [address] System in [place] [address] [facility] documented in this encounter Visit Diagnoses Diagnosis Malignant Neoplasm Of Uterus Endometrial (HCC) documented in this encounter Care Teams Hospitalist Medical Director Relationship Specialty Start Date End Date Elsewhere, Pcp PCP - General Internal Medicine 10/01/21 documented as of this encounter
--- OUTSIDE RECORDS SUMMARY | 2022-05-01 16:12 | XMS_ITS | Encounter Summary ---
:1950 Author Organization [facility] Address [address] [place] [id number] Care Team Providers Name Role Phone Elsewhere, Pcp Primary Care Provider Unavailable Reason for Referral MRI/CAT/PET Scan (Routine) - Closed Specialty Diagnoses / Procedures Referred By Contact Refer red To Contact Radiology Diagnoses Malignant Neoplasm Of Uterus Endometrial (HCC) Lionel See M.D., [facility] er Region Procedures CT Abdomen Pelvis with IV Contrast CT Abdomen Pelvis without and with IV Contrast Ph.D. [address] [place] [phone] Referral ID Status Reason Start Date Expiration Date Visits Requ ested Visits Authorized [id number] Closed 01/29/2022 01/29/2023 1 1 Outpatient (Routine) - Closed Specialty Diagnoses / Procedures Referred By Contact Refer red To Contact Oncology Lionel See M. D., Ph.D. [facility] [address] [place] [phone] Referral ID Status Reason Start Date Expiration Date Visits Requ ested Visits Authorized [id number] Closed 01/29/2022 01/29/2023 1 1 MRI/CAT/PET Scan (Routine) - Closed Specialty Diagnoses / Procedures Referred By Contact Refer red To Contact Radiology Diagnoses Malignant Neoplasm Of Uterus Endometrial (HCC) Lionel See M.D., [facility] er Region Procedures CT Chest with IV Contrast Ph.D. [address] [place] [phone] Referral ID Status Reason Start Date Expiration Date Visits Requ ested Visits Authorized [id number] Closed 01/29/2022 01/29/2023 1 1 Reason for Visit Episode Based Medications (Routine) - Closed Specialty Diagnoses / Procedures Referred By Contact Refer red To Contact Diagnoses Malignant Neoplasm Of Uterus Endometrial (HCC) Neutropenia Chemotherapy Induced (HCC) Merlyn Rose, ALVA, Rst Onc Trip [place]ner, M.S.N. [address] [place] [address] [place] [phone] Referral ID Status Reason Start Date Expiration Date Visits Requ ested Visits Authorized [id number] Closed 10/15/2021 10/15/2022 99 99 Encounter Details Date Type Department Care Team Description 01/29/2022 Office Visit Department of Lionel See, Malignant Neoplasm Of Uterus Endometrial (HCC); Oncology in [place], Ph.D. Neutropenia Chemotherapy Induced (HCC) [place], [place] [address] [place] [address] [place] [phone] Social History Tobacco Use Types Packs/Day Years [...] or relatives? How often do you attend congregational or More than 4 times per year 03/17/2022 latter day services? 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 - 01/29/2022 11:00 AM CDT SUBJECTIVE CHIEF COMPLAINT/REASON FOR VISIT IIIC2 serous endometrial cancer HISTORY OF PRESENT ILLNESS Oncology History Malignant Neoplasm Of Uterus Endometrial (HCC) Genetic Testing and Tumor Genotyping IHC: Normal expression of MLH1, MSH2, MSH6, and PMS2 HER2 negative Negative germline genetic testing in 2021; Breast and Ammonium Nitrate Neutralizer + Colorectal Cancers panel through [facility]. 08/12/2021 Initial Diagnosis Began experiencing PMB [...] neuropathy. CARBOplatin AUC 6 / PACLitaxel ( CLINICAL OPERATIONS MANAGER ) Start Date: 10/22/2021 INTERVAL HISTORY: Ms. Pavon returns for follow-up of endometrial cancer. She has had some fatigue and lightheadedness,primarily the 1st week after each cycle of chemotherapy. She also notes numbness of the toes. This improves toward the end of each cycle of therapy. ECOG performance status is 1-2. REVIEW OF SYSTEMS Pertinent items are noted in HPI; all other review of systems were negative. I reviewed the Medications, Allergies, Past Medical History, Social History, and Family History. OBJECTIVE VITAL SIGNS Vitals: 01/29/22 1044 BP: 115/68 BP Location: Right arm Patient Position: Sitting Cuff Size: Large Pulse: 68 Resp: 16 Temp: 36.1 ??C TempSrc: Tympanic SpO2: 96% Weight: 92.2 kg Height: 165.2 cm DISTRESS SCORE: No data recorded PHYSICAL EXAMINATION General: Alert female in no acute distress. Ambulates on and off the exam table without difficulty. Eyes: Sclerae non-icteric. Lymph: No palpable cervical, supraclavicular, or axillary lymphadenopathy. Heart: Regular rate and rhythm. Lungs: Clear to auscultation and resonant to percussion bilaterally. Abdomen: Soft, non-tender, non-distended. Extremities: Warm, no edema, no calf tenderness. ASSESSMENT / PLAN #1 Stage IIIC2 serous endometrial cancer Ms. Pavon has some fatigue and lightheadedness but no dose-limiting clinical toxicity from her treatment with paclitaxel and carboplatin. He has no clinical evidence for progression of her cancer. I reviewed the laboratory studies, and these show resolution of her neutropenia. I discussed with Ms. Pavon that I think would be reasonable for her to receive a 5th cycle of chemotherapy tomorrow. I recommended that she receive pegfilgrastim. She will return in 3 weeks for her 6thand final planned cycle of chemotherapy. I will plan to have her undergo another scan about a month after completing chemotherapy. We will have Radiation Oncology evaluate her for possible adjuvant radiation at that time as well. PATIENT EDUCATION Learning needs assessment was performed. No learning barriers were identified. Explained diagnosis and treatment plan. Patient expressed understanding and was able to teach back. ADMINISTRATIVE BILLING I personally spent over half of a total 30 minutes with the patient in counseling and discussion and/or coordination of care as described above. documented in this encounter Plan of Treatment Upcoming Encounters Date Type Specialty Care Team Description 05/02/2022 Appointment Radiation Oncology Dot Lopez M.D. [address] [place] [phone] 05/05/2022 Appointment Radiation Oncology Judy Mccall M.D. [address] [place] [phone] 05/06/2022 Appointment Radiation Oncology Judy Mccall M.D. [address] [place] [phone] 05/06/2022 Appointment Radiation Oncology Judy Mccall M.D. [address] [place] [phone] 05/07/2022 Appointment Radiation Oncology Judy Mccall M.D. [address] [place] [phone] 05/08/2022 Appointment Radiation Oncology Judy Mccall M.D. [address] [place] [phone] 05/22/2022 Clinical Communication Admitting/Central Scheduling 05/26/2022 Appointment Radiology Merlyn Rose APRN, C.N.P., M.S.N. [address] [place] [phone] 05/27/2022 Office Visit Oncology Merlyn Rose APRN, C.NYiPYi, M.S.N. [address] [place] [phone] Scheduled Referrals Name Type Priority Associated Diagnoses Order [facility] Oncology office Outpatient Referral Routine Expec modesto: visit (clinic) 03/19/2022, General; CLINICAL OPERATIONS MANAGER Expires: 05/01/2023 documented as of this encounter Results CT Abdomen Pelvis with [...] Lionel See M.D., Ph.D. IMG CT PROCEDURES Sodium (03/19/2022 10:38 AM CDT) P athologist Signature Sodium, P 142 135 - 145 03/19/2022 2:02 [facility] mmol/L PM CDT Specimen Anatomical Collection Method Collection Time Receive d Time (Source) Location / / Volume Laterality Blood (Blood, 03/19/2022 10:38 03/19/2022 1:26 Venous) AM CDT PM CDT Lionel See M.D., Ph.D. LAB BLOOD ADD-ON Performing Organization Address City/State/ZIP Code Phon e Number [facility]- [address] [place] [facility] [place] [address] [place] [address] System in [place] [address] Potassium (03/19/2022 10:38 AM CDT) athologist Signature Potassium, P 4.1 3.6 - 5.2 03/19/2022 [place] mmol/L 2:02 PM CDT Specimen Anatomical Collection Method Collection Time Receive d Time (Source) Location / / Volume Laterality Blood (Blood, 03/19/2022 10:38 03/19/2022 1:26 Venous) AM CDT PM CDT Lionel See M.D., Ph.D. LAB BLOOD ADD-ON Performing Organization Address City/State/ZIP Code Phon e Number [facility]- [address] [place] [address] [place] [address] [address] in [place] [address] Creatinine with Estimated GFR (03/19/2022 10:38 AM CDT) athologist Signature Creatinine 0.78 0.59 - 03/19/2022 [place] 1.04 mg/dL 2:02 PM CDT eGFR-Black/Afric 88 >=60 03/19/2022 [place] an Bahraini mL/min/BSA 2:02 PM CDT Comment: ----ADDITIONAL INFORMATION---- [...] Organization Address City/State/ZIP Code Phon e Number [facility]- [address] [place] [address] [facility] [place] [address] System in [place] [address] [facility] (ABNORMAL) CBC with Differential, Blood (03/19/2022 10:38 AM CDT) [facility] Method Time Signature Hemoglobin 8.7 [...] Organization Address City/State/ZIP Code Phon e Number [facility]- [address] [place] [address] [facility] [address] [facility] [place] [address] System in [place] [address] Bilirubin, Total (03/19/2022 10:38 AM CDT) P athologist Signature Bilirubin, 0.3 <=1.2 mg/dL 03/19/2022 [place] Total, P 2:02 PM CDT Specimen Anatomical Collection Method Collection Time Receive d Time (Source) Location / / Volume Laterality Blood (Blood, 03/19/2022 10:38 03/19/2022 1:26 Venous) AM CDT PM CDT Lionel See M.D., Ph.D. LAB BLOOD ADD-ON Performing Organization Address City/State/ZIP Code Phon e Number [facility]- [address] [place] [address] [facility] [facility] [place] [address] System in [place] [address] AST (Aspartate Aminotransferase) [...] Organization Address City/State/ZIP Code Phon e Number [facility]- [address] [place] [address] [facility] [facility] [place] [address] System in [place] [address] Alkaline Phosphatase (03/19/2022 10:38 AM CDT) P athologist Signature Alkaline 83 35 - 104 03/19/2022 [place] Phosphatase, P U/L 2:02 PM CDT Specimen Anatomical Collection Method Collection Time Receive d Time (Source) Location / / Volume Laterality Blood (Blood, 03/19/2022 10:38 03/19/2022 1:26 Venous) AM CDT PM CDT Lionel See M.D., Ph.D. LAB BLOOD ADD-ON Performing Organization Address City/State/ZIP Code Phon e Number [facility]- [address] [place] [address] [place] [address] System in [place] [address] documented in this encounter Visit Diagnoses Diagnosis Malignant Neoplasm Of Uterus Endometrial (HCC) Neutropenia Chemotherapy Induced (HCC) Malignant Neoplasm Of Uterus Endometrial (HCC) documented in this encounter Care Teams Race And Sports Book Writer Relationship Specialty Start Date End Date Elsewhere, Pcp PCP - General Internal Medicine 10/01/21 documented as of this encounter
--- OUTSIDE RECORDS SUMMARY | 2022-05-01 16:13 | XMS_ITS | Encounter Summary ---
:1950 Author Organization [facility] Address [address] [place] [address] Care Team Providers Name Role Phone Elsewhere, Pcp Primary Care Provider Unavailable Reason for Visit Episode Based Medications (Routine) - Closed Specialty Diagnoses / Procedures Referred By Contact Refer red To Contact Diagnoses Malignant Neoplasm Of Uterus Endometrial (HCC) Neutropenia Chemotherapy Induced (HCC) Merlyn Rose APRN, Rst Onc Trip Sumner, M.S.N. [address] [place] [address] [place] [phone] Referral ID Status Reason Start Date Expiration Date Visits Requ ested Visits Authorized [id number] Closed 10/15/2021 10/15/2022 99 99 Encounter Details Date Type Department Care Team Description 01/20/2022 Hospital Encounter Department of Merlyn Rose Neoplasm Of Uterus Endometrial (HCC); Laboratory Medicine [facility] Sam C.NLeopoldo, Pinky dong Chemotherapy Induced (HCC) in [place] M.S.[place] [address] [place] [address] [address] [place] [phone] Social History Tobacco Use Types Packs/Day Years [...] or relatives? How often do you attend spiritism or More than 4 times per year 03/17/2022 mormon services? Do you belong to any clubs or Yes 03/17/2022 organizations such as spiritism groups, unions, fraternal or athletic groups, or [...] place to sleep or slept in a mcc (including now)? Education Answer Date Recorded What is the highest level of school Bachelor's degree (e.g., BA, AB, 07/20/2021 you have completed or the highest BS) degree you have received? 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 200 [place] [phone] 05/05/2022 Appointment Radiation Oncology Judy Mccall M.D. 200 [place] [phone] 05/06/2022 Appointment Radiation Oncology Judy Mccall M.D. 200 [place] [phone] 05/06/2022 Appointment Radiation Oncology Judy Mccall M.D. [address] [place] [phone] 05/07/2022 Appointment Radiation Oncology Judy Mccall M.D. [address] [place] [phone] 05/08/2022 Appointment Radiation Oncology Judy Mccall M.D. [address] [place] [phone] 05/22/2022 Clinical Communication Admitting/Central Scheduling 05/26/2022 Appointment Radiology Merlyn Rose APRN, C.NLeopoldo, M.S.N. [address] [place] [phone] 05/27/2022 Office Visit Oncology Merlyn Rose APRN, C.N.PYi, M.S.N. [address] [place] [phone] documented as of this encounter Procedures Procedure Name Priority Date/Time Associated Diagnosis Comme nts CBC WITH DIFFERENTIAL, Routine 01/20/2022 10:31 Malignant Neop lasm Results for this B AM CDT Of Uterus procedure are i n Endometrial (HCC ) the results Neutropenia section. Chemotherapy Induced (HCC) COMPREHENSIVE Routine 01/20/2022 10:31 Malignant Neoplasm Resu lts for this METABOLIC PANEL, S/P AM CDT Of Uterus procedu re are in Endometrial (HCC ) the results Neutropenia section. Chemotherapy Induced (HCC) documented in this encounter Results Comprehensive Metabolic Panel (01/20/2022 10:31 AM CDT) P athologist Signature Potassium, P 4.0 3.6 - 5.2 01/20/2022 OW[facility] mmol/L 2:10 PM CDT Sodium, P 141 135 - 145 01/20/2022 [facility] mmol/L 2:10 PM CDT Chloride, P 105 98 - 107 01/20/2022 [facility] mmol/L 2:10 PM CDT Bicarbonate, P 26 22 - 29 01/20/2022 [facility] mmol/L 2:10 PM CDT Anion Gap, P 10 7 - 15 01/20/2022 [facility] 2:10 PM CDT BUN (Blood Urea 10 6 - 21 01/20/2022 [facility] Nitrogen), P mg/dL 2:10 PM CDT Creatinine 0.75 0.59 - 01/20/2022 OW[facility] 1.04 mg/dL 2:10 PM CDT eGFR-Black/Afric >90 >=60 01/20/2022 [facility] an Montenegrin mL/min/BSA 2:10 PM CDT Comment: ----ADDITIONAL INFORMATION---- Estimated GFR calculated using the 2009 CKD_EPI creatinine equation. eGFR Non-Black/ 80 >=60 mL/min/BSA 2:10 PM CDT OWAT Comment: ----ADDITIONAL INFORMATION---- Estimated GFR calculated using the 2009 CKD_EPI creatinine equation. Calcium, Total, P 9.2 8.8 - 10.2 mg/dL 01/20/2022 2:10 PM CDT OW[facility] Glucose, P 106 70 - 140 mg/dL 01/20/2022 2:10 PM CDT O PEDRO Protein, Total, P 6.5 6.3 - 7.9 g/dL 01/20/2022 2:10 P M CDT [facility] Albumin, P 4.2 3.5 - 5.0 g/dL 01/20/2022 2:10 PM CDT O PEDRO Aspartate Aminotransferase 17 8 - 43 U/L 01/20/2022 2 :10 PM CDT [facility] (AST), P Alkaline Phosphatase, P 85 35 - 104 U/L 01/20/2022 2: 10 PM CDT [facility] Alanine Aminotransferase (ALT), 9 7 - 45 U/L 022 2:10 PM CDT OWAT P Bilirubin, Total, P <0.2 <=1.2 mg/dL 01/20/2022 2:10 PM CDT OW[facility] Specimen Anatomical Collection Method Collection Time Receive d Time (Source) Location / / Volume Laterality Blood (Blood, 01/20/2022 10:31 01/20/2022 1:19 Venous) AM CDT PM CDT Merlyn Rose APRN, C.N.P., M.S.N. LAB BLOOD ADD-ON Performing Organization Address City/State/ZIP Code Phon e Number [facility] [address] [place] [address] [facility] [place] [address] System in [place] [address] (ABNORMAL) CBC with Differential, Blood (01/20/2022 10:31 AM CDT) [facility] Method Time Signature Hemoglobin 9.4 (L) 11.6 - 01/20/2022 FB60 15.0 g/dL 10:35 AM CDT Hematocrit 29.3 (L) 35.5 - 01/20/2022 FB60 44.9 % 10:35 AM CDT Erythrocytes 2.99 (L) 3.92 - 01/20/2022 FB60 5.13 10:35 AM CDT x10(12)/L MCV 98.0 (H) 78.2 - 01/20/2022 FB60 97.9 fL 10:35 AM CDT RBC Distrib Width 20.6 (H) 12.2 - 01/20/2022 FB60 16.1 % 10:35 AM CDT Platelet Count 137 (L) 157 - 371 01/20/2022 FB60 x10(9)/L 10:35 AM CDT Leukocytes 2.7 (L) 3.4 - 9.6 01/20/2022 FB60 x10(9)/L 10:35 AM CDT Neutrophils 0.99 (L) 1.56 - 01/20/2022 FB60 6.45 10:35 AM CDT x10(9)/L Lymphocytes 1.34 0.95 - 01/20/2022 FB60 3.07 10:35 AM CDT x10(9)/L Monocytes 0.37 0.26 - 01/20/2022 FB60 0.81 10:35 AM CDT x10(9)/L Eosinophils 0.02 (L) 0.03 - 01/20/2022 FB60 0.48 10:35 AM CDT x10(9)/L Basophils 0.01 0.01 - 01/20/2022 FB60 0.08 10:35 AM CDT x10(9)/L Specimen Anatomical Collection Method Collection Time Receive d Time (Source) Location / / Volume Laterality Blood (Blood, 01/20/2022 10:31 01/20/2022 Venous) AM CDT 10:31 AM CDT Merlyn Rose APRN C.N.P., M.S.N. LAB BLOOD ADD-ON Performing Organization Address City/State/ZIP Code Phon e Number [facility] [address] [place] [address] [facility] [place] [address] documented in this encounter Visit Diagnoses Diagnosis Malignant Neoplasm Of Uterus Endometrial (HCC) Neutropenia Chemotherapy Induced (HCC) documented in this encounter Care Teams Forest Fire Fighters Dispatcher Relationship Specialty Start Date End Date Elsewhere, Pcp PCP - General Internal Medicine 10/01/21 documented as of this encounter
--- OUTSIDE RECORDS SUMMARY | 2022-05-01 16:13 | XMS_ITS | Encounter Summary ---
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 - 01/09/2022 4:49 PM CDT SUBJECTIVE CHIEF COMPLAINT / REASON FOR CALL Evaluating patient states on cycle 4 Information Discussed I called the patient about symptom management with nausea, hydration, nutrition, elimination, energy, and activity levels. The patient stated she felt very tired and weak causing her to use a walker and lay down on the floor due to her knees feeling unsteady and weak. Today the patient stated she isn't using her walker and her energy levels are starting to get better. However, day 3-4 was her lowest energy days. The patient stated she was resting in bed those day. The following days she stated she was nauseated and vomited her antiemetic medications up at times. The patient stated she didn't have much hydration intake or appetite but had drank an ensure protein bottle. The patient received hydration via IV fluids two times at the [facility] and is scheduled for 01/10 and 01/14 for additional fluids as needed. Patient stated she is feeling better today with the energy levels getting better and the nausea has subsided to a managable state. Patient stated she was taking Compazine, Zofran and Ativan but, at times it wasn't enough. I suggested to try taking Compazine first and after 40 minutes take the Zofran if she was still nauseous. The patient stated she was taking the Ativan only at night and I reinforced that it was acceptable to take Ativan during the day as long as she doesn't drive. The patient stated she has been experiencing constipation since her chemotherapy treatment and has been taking laxatives. Her last bowel movement was 01/09 and it was diarrhea. She states she was feelingbetter now that she wasn't constipated anymore and her appetite is starting to come back. Suggestions were made to the patient to drink more water and to flavor it with fruits and vegetablesto help keep her hydration intake at 64 oz a day. Patient agrees with all of these suggestions and is hopeful for further improvements of her symptoms. PLAN The plan is to check in with patient on Thursday though the portal about her management of symptoms. Disposition/Recommendation: self-care is appropriate at this time, patient encouraged to call back with questions Information/Education: patient/caller able to teach back Caller agreeable to plan of care: yes The following references were used: nursing clinical judgement documented in this encounter Plan of Treatment Upcoming Encounters Date Type Specialty Care Team Description 05/02/2022 Appointment Radiation Oncology Dot Lopez M.D. [address] [place] [phone] 05/05/2022 Appointment Radiation Oncology Judy Mccall M.D. [address] [place] [phone] 05/06/2022 Appointment Radiation Oncology Judy Mccall M.D. [address] [place] [phone] 05/06/2022 Appointment Radiation Oncology Judy Mccall M.D. [address] [place] [phone] 05/07/2022 Appointment Radiation Oncology Judy Mccall M.D. [address] [place] [phone] 05/08/2022 Appointment Radiation Oncology Judy Mccall M.D. [address] [place] [phone] 05/22/2022 Clinical Communication Admitting/Central Scheduling 05/26/2022 Appointment Radiology Merlyn Rose APRN, C.NAye., M.S.N. 200 [place] [phone] 05/27/2022 Office Visit Oncology Merlyn Rose APRN, C.N.P., M.S.N. [address] [place] [phone] documented as of this encounter Visit Diagnoses Not on filedocumented in this encounter Care Teams Submarine Diver Relationship Specialty Start Date End Date Elsewhere, Pcp PCP - General Internal Medicine 10/01/21 documented as of this encounter
--- OUTSIDE RECORDS SUMMARY | 2022-05-01 16:13 | XMS_ITS | Encounter Summary ---
:1950 Author Organization [facility] Address [address] [place] [address] Care Team Providers Name Role Phone Elsewhere, Pcp Primary Care Provider Unavailable Encounter Details Date Type Department Care Team Description 12/09/2021 Clinical Communication Department of Merlyn Rose , [facility] [place] M.S.N. [address] 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 [address] [place] [phone] 05/05/2022 Appointment Radiation Oncology Judy Mccall M.D. [address] [place] [phone] 05/06/2022 Appointment Radiation Oncology Judy Mccall M.D. [address] [place] [phone] 05/06/2022 Appointment Radiation Oncology Judy Mccall M.D. [address] [place] [phone] 05/07/2022 Appointment Radiation Oncology Judy Mccall M.D. [address] [place] [phone] 05/08/2022 Appointment Radiation Oncology Judy Mccall M.D. [address] [place] [phone] 05/22/2022 Clinical Communication Admitting/Central Scheduling 05/26/2022 Appointment Radiology Merlyn Rose APRN, Ellen.N.P., M.S.N. [address] [place] [phone] 05/27/2022 Office Visit Oncology Merlyn Rose APRN, C.N.P., M.S.N. [address] [place] [phone] documented as of this encounter Visit Diagnoses Not on filedocumented in this encounter Care Teams Residential Assistant Relationship Specialty Start Date End Date Elsewhere, Pcp PCP - General Internal Medicine 10/01/21 documented as of this encounter
--- OUTSIDE RECORDS SUMMARY | 2022-05-01 16:13 | XMS_ITS | Encounter Summary ---
:1950 Author Organization [facility] Address [address] [place] [address] Care Team Providers Name Role Phone Elsewhere, Pcp Primary Care Provider Unavailable Reason for Referral Outpatient (Routine) Specialty Diagnoses / Procedures Referred By Contact Refer darryl To Contact Oncology Merlyn Rose APRN, C.N.P., [facility] M.S.N. [address] [place] [address] Referral ID Status Reason Start Date Expiration Date Visits Requ ested Visits Authorized utpatient (Routine) Specialty Diagnoses / Procedures Referred By Contact Samira andrews To Contact Oncology Merlyn Rose APRN, C.N.P., [facility] M.S.N. [address] [place] [address] Referral ID Status Reason Start Date Expiration Date Visits Requ ested Visits Authorized utpatient (Routine) Specialty Diagnoses / Procedures Referred By Contact Samira andrews To Contact Oncology Merlyn Rose APRN, C.N.P., [facility] M.S.N. [address] [place] [address] Referral ID Status Reason Start Date Expiration Date Visits Requ ested Visits Authorized Reason for Visit Episode Based Medications (Routine) - Closed Specialty Diagnoses / Procedures Referred By Contact Refer red To Contact Diagnoses Malignant Neoplasm Of Uterus Endometrial (HCC) Neutropenia Chemotherapy Induced (HCC) Merlyn Rose APRN, Rst Onc Trip Sumner, M.S.N. [address] [facility] [address] [place] [phone] Referral ID Status Reason Start Date Expiration Date Visits Requ ested Visits Authorized [id number] Closed 10/15/2021 10/15/2022 99 99 Encounter Details Date Type Department Care Team Description 12/10/2021 Office Visit Department of Melryn Rose Malignan t Neoplasm Of Uterus Endometrial (HCC) (Primary Dx); Oncology in [place], Neutropenia Ch emotherapy Induced (HCC) [place], [place] M.S.N. 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 - 12/10/2021 2:00 PM CDT SUBJECTIVE CHIEF COMPLAINT/PUPROSE OF VISIT Ms. Pavon is a 71 y.o. woman with stage IIIC2 serous endometrial cancer Collaborating provider: Dr. Fady Muniz ([phone]) HISTORY OF PRESENT ILLNESS Ms. Pavon is a very pleasant 71 y.o. woman with the following oncologic history: Oncology History Malignant Neoplasm Of Uterus Endometrial (HCC) Genetic Testing and Tumor Genotyping IHC: Normal expression of MLH1, MSH2, MSH6, and PMS2 HER2 negative Negative germline genetic testing in 2021; Breast and Bushler + Colorectal Cancers panel through [facility]. 08/12/2021 Initial Diagnosis Began experiencing PMB [...] disease. 10/01/[address] Jessy Pindea: Robotic exploration with abdominal hysterectomy, bilateral salpingo- [...] with small pericardial effusion. 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 Pavon presents today for evaluation in anticipation of cycle 3 treatment with combination carboplatin and paclitaxel chemotherapy for her newly diagnosed serous endometrial cancer. She describes symptoms of myalgias/arthralgias, fatigue, and nausea/vomiting for approximately 5 days during the initiation of each cycle of treatment. She notes she has been using oral antiemetics, but does continue to have issues intermittently with vomiting. She notes she has no appetite and has difficulty maintaining hydration during the 1st week following treatment. She notes that she will intermittently becomelightheaded and weak during this time. She did have a fall following her 2nd cycle of treatment, whic h caused injury to her tongue. She did end up having evaluation in the emergency room following thisfall. She notes recent removal of the stitches in her tongue, and things were improving well in thisregard. She has had no additional falls since this time. She also had the opportunity to meet with our physical medicine rehabilitation team and plans to work with them for strengthening exercises. She has plans to receive hydration today, notes last week this did help her feel more like herself. She does continue to struggle with constipation, noting she is using 1 Senokot daily. She will have a bowel movement approximately every 4-5 days. She notes she did have 10 days of constipation following her last cycle of treatment. She feels that following the 1st week she is able to eat and drink more normally, does regain her strength. She has noted numbness and tingling in her toes bilaterally as wellas the index finger and thumb of both hands. She also notes that she had pain in her heels followingher last cycle of treatment, however, this is not resolved. She denies shortness of breath, urinary concerns, or vaginal bleeding/discharge. REVIEW OF SYSTEMS Pertinent items are noted in HPI; all other review of systems were negative. OBJECTIVE VITAL SIGNS Vitals Blood Pressure: 133/80, Temperature: 36.6 ??C, Temp Source: Tympanic, Pulse Rate: 68, Resp Rate: 16, SpO2: 97 %, Height: 165.2 cm, Weight: 94.3 kg BP Readings from Last 1 Encounters: 12/10/21 146/86 Pulse Readings from Last 1 Encounters: 12/10/21 62 Temp Readings from Last 1 Encounters: 12/10/21 37.1 ??C Rate your distress: 2 PHYSICAL EXAMINATION General: Alert and oriented, and in no acute distress. Able to ambulate on and off the exam table without difficulty. ECOG PS 1-2. Lymph: No palpable cervical, supraclavicular, axillary, and [...] Chemotherapy Induced (HCC) Ms. Pavon presents today for evaluation in anticipation of cycle 3 treatment with combination carboplatin and paclitaxel chemotherapy for her newly diagnosed serous endometrial cancer. Of note, she was delayed last week due to neutropenia. Labs from 12/09/2021 were reviewed, and are notable for is per sistent neutropenia. For this reason, we will plan to dose reduce her carboplatin to an AUC of 5 andproceed with use of Neulasta on body. I will also plan to dose reduce her Taxol by 20% due to issueswith neuropathy and myalgias/arthralgias. Ms. Pavon does have plans for hydration today and again on this week. I have also recommended that she continue with hydration weekly and as needed for the remainder of this cycle to prevent dehydration. In regard to constipation, we discussed it would be very reasonable for her to increase use of Senokot for bowel regulation purposes. She does feel nervous in regard to causing diarrhea. We discussed the option of increasing by 1 Senokot every otherday to see if this would help with her constipation. I did encourage her to use 2 Senokot daily as she initiates her next cycle of treatment due to significant constipation with her past cycle. We alsodiscussed it would be reasonable for her to use prunes if this would be more tolerable for bowel regu lation purposes. She verbalized understanding of the above information, as no further questions or concerns at this time. Treatment plan was completed to reflect the above mentioned dose reductions. I will plan to see her back in roughly 3 weeks for lab work and evaluation prior to consideration of cycle 4 treatment. I have asked that she reach out to me in the interim if she develops any new or concerning symptoms. She is in agreement with this plan. PATIENT EDUCATION Ready to learn, no apparent learning barriers were identified; learning preferences include listening. Explained diagnosis and treatment plan; patient expressed understanding of the content. documented in this encounter Plan of Treatment Upcoming Encounters Date Type Specialty Care Team Description 05/02/2022 Appointment Radiation Oncology Dot Lopez M.D. [address] [place] [phone] 05/05/2022 Appointment Radiation Oncology Judy Mccall M.D. [address] [place] [phone] 05/06/2022 Appointment Radiation Oncology Judy Mccall M.D. [address] [place] [phone] 05/06/2022 Appointment Radiation Oncology Judy Mccall M.D. [address] [place] [phone] 05/07/2022 Appointment Radiation Oncology Judy Mccall M.D. [address] [place] [phone] 05/08/2022 Appointment Radiation Oncology Judy Mccall M.D. [address] [place] [phone] 05/22/2022 Clinical Communication Admitting/Central Scheduling 05/26/2022 Appointment Radiology Merlyn Rose APRN, C.N.P., M.S.N. [address] [place] [address] 05/27/2022 Office Visit Oncology BhargavjanesadieMerlyn APRN, C.N.P., M.S.N. [address] [place] [address] Scheduled Referrals Name Type Priority Associated Diagnoses Order [facility] Oncology office Outpatient Referral Routine Malignant Neoplasm Of Expected: visit (clinic) Uterus Endometrial 022, General; CLAIMS ADJUSTER SUPERVISOR (HCC) Expires: Neutropenia 12/31/2022 Chemotherapy Induced (HCC) Oncology office Outpatient Referral Routine Malignant Neoplasm Of Expected: visit (clinic) Uterus Endometrial 022, General; CLAIMS ADJUSTER SUPERVISOR (HCC) Expires: Neutropenia 01/22/2023 Chemotherapy Induced (HCC) Oncology office Outpatient Referral Routine Malignant Neoplasm Of Expected: visit (clinic) Uterus Endometrial 022, General; CLAIMS ADJUSTER SUPERVISOR (HCC) Expires: Neutropenia 02/12/2023 Chemotherapy Induced (HCC) documented as of this encounter Results Comprehensive Metabolic Panel (02/18/2022 [...] CDT eGFR-Black/Afric 88 >=60 02/18/2022 OWAT an [place] mL/min/BSA 2:12 PM CDT Comment: ----ADDITIONAL INFORMATION---- [...] Venous) AM CDT PM CDT Merlyn Rose APRN C.N.P., M.S.N. LAB BLOOD ADD-ON Performing Organization Address City/State/ZIP Code Phon e Number [facility]- [address] [place] [address] [place] [address] System in [place] [address] (ABNORMAL) CBC with Differential, Blood (02/18/2022 10:41 AM CDT) [facility] Method Time Signature Hemoglobin 9.6 (L) 11.6 [...] AM CDT 10:42 AM CDT Merlyn Rose APRN, C.N.P., M.S.N. LAB BLOOD ADD-ON Performing Organization Address City/State/ZIP Code Phon e Number [facility]- [address] [place] [address] [facility] [address] [place] [address] System in [place] [address] Comprehensive Metabolic Panel (01/20/2022 10:31 AM CDT) [...] CDT eGFR-Black/Afric >90 >=60 01/20/2022 [place] an [place] mL/min/BSA 2:10 PM CDT Comment: ----ADDITIONAL INFORMATION---- [...] 01/20/2022 1:19 Venous) AM CDT PM CDT Ellen Santillan APRN.N.Anahi., M.S.N. LAB BLOOD ADD-ON Performing Organization Address City/State/ZIP Code Phon e Number [facility]- [address] [place] [address] [facility] [place] [address] System in [place] [address] (ABNORMAL) CBC with Differential, Blood (01/20/2022 10:31 AM CDT) [facility] Method Time Signature Hemoglobin 9.4 (L) 11.6 [...] AM CDT 10:31 AM CDT Merlyn Rose APRN, C.N.P., M.S.N. LAB BLOOD ADD-ON Performing Organization Address City/State/ZIP Code Phon e Number [address] [place] [address] [facility] [address] [place] [address] [address] Comprehensive Metabolic Panel (12/31/2021 11:27 AM CDT) P athologist Signature Potassium, P 3.7 3.6 - 5.2 12/31/2021 [place] mmol/L 2:13 PM CDT Sodium, P 141 135 - 145 12/31/2021 [place] mmol/L 2:13 PM CDT Chloride, P 105 98 - 107 12/31/2021 [place] mmol/L 2:13 PM CDT Bicarbonate, P 28 22 - 29 12/31/2021 [place] mmol/L 2:13 PM CDT Anion Gap, P 8 7 - 15 12/31/2021 OWAT 2:13 PM CDT BUN (Blood Urea 10 6 - 21 12/31/2021 OW[place] Nitrogen), P mg/dL 2:13 PM CDT Creatinine 0.71 0.59 - 12/31/2021 OWAT 1.04 mg/dL 2:13 PM CDT eGFR-Black/Afric >90 >=60 12/31/2021 [place] an [place] mL/min/BSA 2:13 PM CDT Comment: ----ADDITIONAL INFORMATION---- Estimated GFR calculated using the 2009 CKD_EPI creatinine equation. eGFR Non-Black/ 86 >=60 mL/min/BSA 2:13 PM CDT OWAT Comment: ----ADDITIONAL INFORMATION---- Estimated GFR calculated using the 2009 CKD_EPI creatinine equation. Calcium, Total, P 9.4 8.8 - 10.2 mg/dL 12/31/2021 2:13 PM CDT OWAT Glucose, P 102 70 - 140 mg/dL 12/31/2021 2:13 PM CDT O PEDRO Protein, Total, P 6.4 6.3 - 7.9 g/dL 12/31/2021 2:13 P M CDT OWAT Albumin, P 3.9 3.5 - 5.0 g/dL 12/31/2021 2:13 PM CDT O PEDRO Aspartate Aminotransferase 19 8 - 43 U/L 12/31/2021 2 :13 PM CDT OW[place] (AST), P Alkaline Phosphatase, P 83 35 - 104 U/L 12/31/2021 2: 13 PM CDT OWAT Alanine Aminotransferase (ALT), 10 7 - 45 U/L 022 2:13 PM CDT OWAT P Bilirubin, Total, P 0.3 <=1.2 mg/dL 12/31/2021 2:13 PM CDT OWAT Specimen Anatomical Collection Method Collection Time Receive d Time (Source) Location / / Volume Laterality Blood (Blood, 12/31/2021 11:27 12/31/2021 1:24 Venous) AM CDT PM CDT Merlyn Rose APRN C.N.P., M.S.N. LAB BLOOD ADD-ON Performing Organization Address City/State/ZIP Code Phon e Number [facility]- [address] [place] [address] [place] [address] System in [place] [address] (ABNORMAL) CBC with Differential, Blood (12/31/2021 11:27 AM CDT) [facility] gist Method Time Signature Hemoglobin 9.9 (L) 11.6 - 12/31/2021 FB60 15.0 g/dL 11:54 AM CDT Hematocrit 31.5 (L) 35.5 - 12/31/2021 FB60 44.9 % 11:54 AM CDT Erythrocytes 3.32 (L) 3.92 - 12/31/2021 FB60 5.13 11:54 AM CDT x10(12)/L MCV 94.9 78.2 - 12/31/2021 FB60 97.9 fL 11:54 AM CDT RBC Distrib Width 19.3 (H) 12.2 - 12/31/2021 FB60 16.1 % 11:54 AM CDT Platelet Count 115 (L) 157 - 371 12/31/2021 FB60 x10(9)/L 11:54 AM CDT Leukocytes 4.2 3.4 - 9.6 12/31/2021 FB60 x10(9)/L 11:54 AM CDT Neutrophils 2.31 1.56 - 12/31/2021 FB60 6.45 11:54 AM CDT x10(9)/L Lymphocytes 1.10 0.95 - 12/31/2021 FB60 3.07 11:54 AM CDT x10(9)/L Monocytes 0.74 0.26 - 12/31/2021 FB60 0.81 11:54 AM CDT x10(9)/L Eosinophils 0.05 0.03 - 12/31/2021 FB60 0.48 11:54 AM CDT x10(9)/L Basophils 0.02 0.01 - 12/31/2021 FB60 0.08 11:54 AM CDT x10(9)/L Specimen Anatomical Collection Method Collection Time Receive d Time (Source) Location / / Volume Laterality Blood (Blood, 12/31/2021 11:27 12/31/2021 Venous) AM CDT 11:27 AM CDT Merlyn Rose APRN C.N.P., M.S.N. LAB BLOOD ADD-ON Performing Organization Address City/State/ZIP Code Phon e Number [facility]- [address] [place] [address] [facility] [address] [place] [address] System in [place] [address] documented in this encounter Visit Diagnoses Diagnosis Malignant Neoplasm Of Uterus Endometrial (HCC) - Primary Neutropenia Chemotherapy Induced (HCC) documented in this encounter Care Teams Sales Solutions Associate Relationship Specialty Start Date End Date Elsewhere, Pcp PCP - General Internal Medicine 10/01/21 documented as of this encounter
--- OUTSIDE RECORDS SUMMARY | 2022-05-01 16:13 | XMS_ITS | Encounter Summary ---
:1950 Author Organization [facility] Address [address] [place] [address] Care Team Providers Name Role Phone Elsewhere, Pcp Primary Care Provider Unavailable Reason for Visit Reason Comments Outpatient Infusion Fluids Episode Based Medications (Routine) - Authorized Specialty Diagnoses / Procedures Referred By Contact Refer red To Contact Diagnoses Dehydration Merlyn Rose, [place], Rsadalgisa Onc Trip McdermottNLeopoldo, M.S.N. [address] [place] [address] [place] [phone] [place] [address] Referral ID Status Reason Start Date Expiration Date Visits V isits Requested Authorized [id number] Authorized 11/22/2021 11/22/2022 99 99 Encounter Details Date Type Department Care Team Description 12/12/2021 Infusion Department of Infusion Merlyn Rose, Dehydration (Primary Dx); Therapy in [place], [place] C.N.Abdirashid, Multi ple Subsegmental Pulmonary Embolism Without Acute Cor Pulmonale (HCC); [place] M.S.N. Malignant Neoplasm Of Uterus Endometrial (HCC) [address] [place] [address] [address] [place] [phone] (Wo rk) Social History Tobacco Use Types [...] More than 4 times per year 03/17/2022 restorationist services? Do you belong to any clubs or Yes 03/17/2022 organizations such as episcopal groups, unions, fraYou.i or athletic groups, or school groups? 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 [address] [place] [phone] 05/05/2022 Appointment Radiation Oncology Judy Mccall M.D. [address] [place] [phone] 05/06/2022 Appointment Radiation Oncology Judy Mccall M.D. [address] [place] [phone] 05/06/2022 Appointment Radiation Oncology Judy Mccall M.D. [address] [place] [phone] 05/07/2022 Appointment Radiation Oncology Judy Mccall M.D. [address] [place] [phone] 05/08/2022 Appointment Radiation Oncology Judy Mccall M.D. [address] [place] [phone] 05/22/2022 Clinical Communication Admitting/Central Scheduling 05/26/2022 Appointment Radiology Merlyn Rose APRN, C.NLeopoldo, M.S.N. [address] [place] [phone] 05/27/2022 Office Visit Oncology Merlyn Rose APRN, C.NAye., M.S.N. [address] [place] [phone] documented as of this encounter Visit Diagnoses Diagnosis Dehydration - Primary Multiple Subsegmental Pulmonary Embolism Without Acute Cor Pulmonale (HCC) Malignant Neoplasm Of Uterus Endometrial (HCC) documented in this encounter Administered Medications Inactive Administered Medications - up to 3 most recent administrations Medication Order ALDO Action Action Date Dose Rate Site NaCl 0.9 % bolus 1,000 mL Bolus from Bag 12/12/2021 7:44 AM 1,000 mL 1000 mL/hr 1,000 mL, intravenous, at CDT 1,000 mL/hr, Administer over 1 Hours, Once, On Betty 12/12/21 at 0730, For 1 dose documented in this encounter Care Teams Senior Shipping Clerk Relationship Specialty Start Date End Date Elsewhere, Pcp PCP - General Internal Medicine 10/01/21 documented as of this encounter
--- OUTSIDE RECORDS SUMMARY | 2022-05-01 16:13 | XMS_ITS | Encounter Summary ---
:1950 Author Organization [facility] Address [address] [place] [address] Care Team Providers Name Role Phone Elsewhere, Pcp Primary Care Provider Unavailable Reason for Visit Reason Comments Pre-visit Intake Encounter Details Date Type Department Care Team Description 12/27/2021 Clinical Communication Visit Review in Pr e-visit Intake [place], [place] [address] [place], [place] [phone] Social History Tobacco Use Types Packs/Day Years [...] or relatives? How often do you attend anabaptist or More than 4 times per year 03/17/2022 christianity services? 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 [address] [place] [phone] 05/05/2022 Appointment Radiation Oncology Judy Mccall M.D. [address] [place] [phone] 05/06/2022 Appointment Radiation Oncology Judy Mccall M.D. [address] [place] [phone] 05/06/2022 Appointment Radiation Oncology Judy Mccall M.D. [address] [place] [phone] 05/07/2022 Appointment Radiation Oncology Judy Mccall M.D. [address] [place] [phone] 05/08/2022 Appointment Radiation Oncology Judy Mccall M.D. [address] [place] [phone] 05/22/2022 Clinical Communication Admitting/Central Scheduling 05/26/2022 Appointment Radiology Merlyn Rose APRN, C.N.P., M.S.N. [address] [place] [phone] 05/27/2022 Office Visit Oncology Merlyn Rose APRN, C.N.P., M.S.N. [address] [place] [phone] documented as of this encounter Visit Diagnoses Not on filedocumented in this encounter Care Teams Waterfront Director Relationship Specialty Start Date End Date Elsewhere, Pcp PCP - General Internal Medicine 10/01/21 documented as of this encounter
--- OUTSIDE RECORDS SUMMARY | 2022-05-01 16:13 | XMS_ITS | Encounter Summary ---
:1950 Author Organization [facility] Address [address] [place] [address] Care Team Providers Name Role Phone Elsewhere, Pcp Primary Care Provider Unavailable Reason for Visit Episode Based Medications (Routine) - Closed Specialty Diagnoses / Procedures Referred By Contact Refer red To Contact Diagnoses Malignant Neoplasm Of Uterus Endometrial (HCC) Neutropenia Chemotherapy Induced (HCC) Merlyn Rose APRN, adalgisa Onc Trip Sumner, M.S.N. [address] [place] [address] [place] [address] [phone] Referral ID Status Reason Start Date Expiration Date Visits Requ ested Visits Authorized [id number] Closed 10/15/2021 10/15/2022 99 99 Encounter Details Date Type Department Care Team Description 12/11/2021 Infusion Department of Oncology Merlyn Rose, Malignant Neoplasm Of Uterus Endometrial (HCC) (Primary Dx); in [facility] CALLE, Neutropenia C hemotherapy Induced (HCC); [place] M.S.N. Multiple Subsegmental Pulmonary Embolism Without Acute Cor Pulmonale (HCC) [address] [facility] [address] [place] [phone] (Wo rk) Social History Tobacco Use Types [...] More than 4 times per year 03/17/2022 latter-day services? 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 [address] [place] [phone] 05/05/2022 Appointment Radiation Oncology Judy Mccall M.D. [address] [place] [phone] 05/06/2022 Appointment Radiation Oncology Judy Mccall M.D. [address] [place] [phone] 05/06/2022 Appointment Radiation Oncology Judy Mccall M.D. [address] [place] [phone] 05/07/2022 Appointment Radiation Oncology Judy Mccall M.D. [address] [place] [phone] 05/08/2022 Appointment Radiation Oncology Judy Mccall M.D. [address] [place] [phone] 05/22/2022 Clinical Communication Admitting/Central Scheduling 05/26/2022 Appointment Radiology Merlyn Rose APRN, C.N.P., M.S.N. [address] [place] [phone] 05/27/2022 Office Visit Oncology Merlyn Rose APRN C.N.P., M.S.N. [address] [place] [phone] documented as of this encounter Visit Diagnoses Diagnosis Malignant Neoplasm Of Uterus Endometrial (HCC) - Primary Neutropenia Chemotherapy Induced (HCC) Multiple Subsegmental Pulmonary Embolism Without Acute Cor Pulmonale (HCC) documented in this encounter Administered Medications Inactive Administered Medications - up to 3 most recent administrations Medication Order MAR Action Action Date Dose Rate Site CARBOplatin 650 mg in NaCl New Bag 12/11/2021 12:01 PM CDT 650 mg 680 mL/hr 0.9% 340 mL IVPB (PARAPLATIN) 650 mg (rounded from 651.5 mg, Target AUC = 5), intravenous, at 680 mL/hr, Administer over 30 Minutes, Once, On Thu12/11/21 at 1100, For 1 dose dexamethasone in NaCl 0.9% IVPB 12 New Bag 12/11/2021 7:46 AM CDT 12 mg 200 mL/hr mg (DECADRON) 12 mg, intravenous, at 200 mL/hr, Administer over 15 Minutes, Once, On Thu12/11/21 at 0730, For 1 dose, Give prior to PACLitaxel Refrigerate diphenhydrAMINE injection 50 mg (BENADRY L) Given 12/11/2021 7:44 AM CDT 50 mg 50 mg, intravenous, Once, On Thu12/11/21 at 0730, For 1 dose, Give prior to PACLitaxel. famotidine injection 20 mg (PEPCID) Given 12/11/2021 7:40 AM CDT 20 mg 20 mg, intravenous, Once, On Thu12/11/21 at 0730, For 1 dose, Give prior to PACLitaxel fosaprepitant in NaCl 0.9% IVPB 150 New 12/11/2021 8:18 AM CDT 150 mg 500 mL/hr mg (EMEND) 150 mg, intravenous, at 500 mL/hr, Administer over 30 Minutes, Once, On Thu12/11/21 at 0730, For 1 dose, Incompatible with solutions containing divalent cations (calcium, magnesium) including lactated Ringer's solution. ondansetron in NaCl 0.9% IVPB 16 mg New 12/11/2021 8:00 AM CDT 16 mg 232 mL/hr (ZOFRAN) 16 mg, intravenous, at 232 mL/hr, Administer over 15 Minutes, Once, On Thu12/11/21 at 0730, For 1 dose PACLitaxeL 288 mg in NaCl 0.9% New 12/11/2021 8:54 AM CDT 288 mg 108 mL/hr (non-PVC) 323 mL IVPB (TAXOL) 288 mg (rounded from 289.8 mg = 140 mg/m2 ? 2.07 m2 Treatment Plan BSA from Measured weight), intravenous, at 108 mL/hr, Administer over 3 Hours, Once, On Thu12/11/21 at 0800, For 1 dose, Administer via 0.22 micron in-line filter. pegfilgrastim on-body Given 12/11/2021 12:06 PM CDT 6 mg Left Lower Abdomen injector 6 mg (NEULASTA ONPRO) 6 mg, subcutaneous, Once, On Thu12/11/21 at 0730, For 1 dose, I discussed options with patient: Did not discuss with patient documented in this encounter Care Teams Sas Developer Analyst Relationship Specialty Start Date End Date Elsewhere, Pcp PCP - General Internal Medicine 10/01/21 documented as of this encounter
--- OUTSIDE RECORDS SUMMARY | 2022-05-01 16:13 | XMS_ITS | Encounter Summary ---
:1950 Author Organization [facility] Address [address] [place] [address] Care Team Providers Name Role Phone Elsewhere, Pcp Primary Care Provider Unavailable Reason for Referral Outpatient (Routine) - Authorized Specialty Diagnoses / Procedures Referred By Contact Refer red To Contact Vascular Medicine [facility] C.N[facility] M.S. 200 [place] [phone] Referral ID Status Reason Start Date Expiration Date Visits V isits Requested Authorized [id number] Authorized 01/15/2022 01/15/2023 1 1 Reason for Visit Outpatient (Routine) - Closed Specialty Diagnoses / Procedures Referred By Contact Refer red To Contact Vascular Medicine Diagnoses Multiple Subsegmental Pulmonary Embolism Without Acute Cor Pulmonale (HCC) [facility] R.[facility] 200 [place] [address] Referral ID Status Reason Start Date Expiration Date Visits Requ ested Visits Authorized [id number] Closed 10/07/2021 10/07/2022 1 1 Encounter Details Date Type Department Care Team Description 01/15/2022 Comprehensive Visit Department of Latonya Rao Neoplasm Of Uterus Endometrial (HCC) (Primary Dx); Vascular Medicine in [facility] [place], Other Pulmonary Embolism Without Acute Cor Pulmonale (HCC) [place], [place] C.N.P., M.S. 200 [facility] [address] [place] [phone] Social History Tobacco Use Types Packs/Day Years [...] More than 4 times per year 03/17/2022 yazdanism services? 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 - 01/15/2022 1:00 PM CDT REFERRAL SOURCE: Sheila Torres APRN, C.N.P. [address] [place] [phone] SUBJECTIVE CHIEF COMPLAINT / REASON FOR VISIT follow up recommendations for PE diagnosed after surgery for invasive gynecologic cancer HISTORY OF PRESENT ILLNESS Ms. Pavon is a 71 y.o. female from [facility] that I am seeing today for the first time for pulmonary embolism. She is accompanied by her friend. She has history of endometrial cancer diagnosed earlier this year and underwent robotic assisted hysterectomy with bilateral salpingo-oophorectomy, pelvic lymphadenectomy, para aortic lymphadenectomy, omentectomy on 10/01/2021. Following the surgery she became short of breath with oxygen desaturation. CTA on 10/02/2021 revealed segmental emboli in the right upper and middle lobes pulmonary arteries with no evidence of right heart strain. Ultrasound of lower extremity was negative for DVT. Echocardiogramon 10/03/2021 revealed mild to moderately enlarged RV size with normal RV systolic function, estimatedRVSP 49 mm Hg, LVEF 65%. She was initiated on anticoagulation and was seen by Dr. Salinas vascular Medicine consult during her hospitalization. She was discharged on Eliquis. She was started on chemotherapy following the surgery. She has no prior history of VTE, CVA/TIA, cardiac disease/valvular disease/history of atrial fibrillation, inflammatory disorder, and/or personal history of clotting disorders. She has 2 adopted children with no prior /miscarriage. She has 2 brothers with history of unprovoked lower extremityDVT on long-term anticoagulation therapy. She has history of CORTES on CPAP. She is currently using supplemental oxygen at night with CPAP. She recently received 4 out of 6 chemotherapy to be followed by radiation therapy. She receives chemotherapy through peripheral IV. She denies difficulty with current Eliquis therapy. She denies signs/symptoms of bleeding. She notedprofound left leg edema following discharge from the hospital in October and underwent ultrasound of left lower extremity at local facility to rule out DVT. Ultrasound was negative for DVT and was thought to be associated with lymphedema. She wears compression stockings and reports resolution of leg edema. The following portions of the patient's history were reviewed and updated as appropriate: allergies,current medications, family history, medical history, social history, surgical history, problem list, labs, diagnostics tests. I reviewed the pertinent clinical notes in the electronic health record. REVIEW OF SYSTEMS 10 systems reviewed. Pertinent positives and pertinent negatives are documented in the history of present illness. OBJECTIVE Blood Pressure 108/70 (BP Location: Left arm, Patient Position: Sitting) Pulse 71 Height 165.9 cm Weight 93 kg Body Mass Index 33.79 kg/m?? PHYSICAL EXAMINATION Vitals reviewed. Constitutional Appearance: Normal appearance. HENT Head: Normocephalic. Eyes Conjunctiva/sclera: Conjunctivae normal. Cardiovascular Rate and Rhythm: Normal rate. Pulses: Normal pulses. Pulmonary Effort: Pulmonary effort is normal. Skin General: Skin is warm. Neurological General: No focal deficit present. Mental Status: She is alert and oriented to person, place, and time. Psychiatric Mood and Affect: Mood normal. DIAGNOSTICS Labs: Lab Results Component Value Date WBC 2.4 (L) 01/15/2022 HGB 8.4 (L) 01/15/2022 HCT 26.4 (L) 01/15/2022 MCV 94.0 01/15/2022 PLT 58 (L) 01/15/2022 Lab Results Component Value Date NA 141 01/15/2022 CL 105 01/15/2022 CREATININE 0.76 01/15/2022 BUN 9 01/15/2022 ANIONGAP 10 01/15/2022 GLUCOSE 86 01/15/2022 CALCIUM 8.2 (L) 01/15/2022 Lab Results Component Value Date INR 1.4 01/15/2022 INR 1.0 11/15/2021 INR 1.1 10/09/2021 PT 15.0 (H) 01/15/2022 PT 13.0 11/15/2021 PT 13.7 10/09/2021 Pertinent laboratory and imaging studies have been reviewed. ASSESSMENT / PLAN #1 Other Pulmonary Embolism Without Acute Cor Pulmonale (HCC) #2 Malignant Neoplasm Of Uterus Endometrial (HCC) 1. Venous Thromboembolism: Date: 10/02/2021 Location (s): segmental emboli in the right upper and middle lobes pulmonary arteries Known risk factors for VTE at that time included: TCR VTE RISK FACTORS: Active cancer: Major, Obesity (BMI>30) and Surgery (>30 min) general anesthesia (<2 months): Major. Ms. Pavon is a 71 y.o. female with history of right-sided segmental pulmonary embolism in the setting of malignancy. She is currently on Eliquis 5 mg twice daily without significant difficulties. She plans to complete 6 session of chemotherapy to be followed by radiation therapy. For malignancy associated thrombus, anticoagulation therapy 6 months beyond cancer cure/in remissionis generally recommended. Recommendations 1. Continue Eliquis 5 mg twice daily 2. For platelet count less than 50,000, recommend to reduce Eliquis to 2.5 mg twice daily. For platelet counts less than 30,000, recommend to hold Eliquis. Resume Eliquis 2.5 mg twice daily when platelet counts over 30,000 then increase to 5 mg twice daily when platelet counts over 50,000. 3. For future procedures that require interruption of Eliquis, recommend to hold Eliquis for 2 days for high risk bleeding procedures or 1 day for non high risk bleeding procedures. Recommend to resumeEliquis postprocedure as soon as safe. 4. Return to the thrombophilia clinic later this year to review ongoing anticoagulation therapy I reviewed risks benefit, potential drug to drug interactions, and side effects with Eliquis therapy. I met with Ms. Pavon in the Thrombophilia Clinic for the first time today, reviewed pertinent outside medical records, and discussed pertinent medical history, ROS, and symptoms as outline above. It was pleasure to meet Ms. Pavon in the Thrombophilia clinic today. All questions were answered to the best of my knowledge. Mendy Rao APRN, C.N.P., M.S. documented in this encounter Plan of Treatment Upcoming Encounters Date Type Specialty Care Team Description 05/02/2022 Appointment Radiation Oncology Dot Lopez M.D. [address] [place] [phone] 05/05/2022 Appointment Radiation Oncology Judy Mccall M.D. [address] [place] [phone] 05/06/2022 Appointment Radiation Oncology Judy Mccall M.D. [address] [place] [phone] 05/06/2022 Appointment Radiation Oncology Judy Mccall M.D. [address] [place] [phone] 05/07/2022 Appointment Radiation Oncology Judy Mccall M.D. [address] [place] [phone] 05/08/2022 Appointment Radiation Oncology Judy Mccall M.D. [address] [place] [phone] 05/22/2022 Clinical Communication Admitting/Central Scheduling 05/26/2022 Appointment Radiology Merlyn Rose APRN, C.N.P., M.S.N. [address] [place] [phone] 05/27/2022 Office Visit Oncology Merlyn Rose APRN, C.N.Anahi., M.S.N. [address] [place] [phone] Scheduled Referrals Name Type Priority Associated Order Schedule Diagnoses Vascular Medicine Outpatient Referral Routine Exp ected: office visit (clinic) 2021 Thrombophilia (Approximate), Expires: 04/17/2023 documented as of this encounter Visit Diagnoses Diagnosis Malignant Neoplasm Of Uterus Endometrial (HCC) - Primary Other Pulmonary Embolism Without Acute C or Pulmonale (HCC) documented in this encounter Care Teams Diver Pumper Relationship Specialty Start Date End Date Elsewhere, Pcp PCP - General Internal Medicine 10/01/21 documented as of this encounter
--- OUTSIDE RECORDS SUMMARY | 2022-05-01 16:13 | XMS_ITS | Encounter Summary ---
:1950 Author Organization [facility] Address [address] [place] [address] Care Team Providers Name Role Phone Elsewhere, Pcp Primary Care Provider Unavailable Encounter Details Date Type Department Care Team Description 12/10/2021 Clinical Communication Department of Kiana Hou Oncology in [place]., R.N. 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 [address] [place] [phone] 05/05/2022 Appointment Radiation Oncology Judy Mccall M.D. [address] [place] [phone] 05/06/2022 Appointment Radiation Oncology Judy Mccall M.D. [address] [place] [phone] 05/06/2022 Appointment Radiation Oncology Judy Mccall M.D. [address] [place] [phone] 05/07/2022 Appointment Radiation Oncology Judy Mccall M.D. [address] [place] [address] [phone] 05/08/2022 Appointment Radiation Oncology Judy Mccall M.D. [address] [place] [address] [phone] 05/22/2022 Clinical Communication Admitting/Central Scheduling 05/26/2022 Appointment Radiology Merlyn Rose APRN, C.N.P., M.S.N. [address] [place] [phone] 05/27/2022 Office Visit Oncology Merlyn Rose APRN, C.N.Anahi., M.S.N. [address] [place] [phone] documented as of this encounter Visit Diagnoses Not on filedocumented in this encounter Care Teams Oil Operator Relationship Specialty Start Date End Date Elsewhere, Pcp PCP - General Internal Medicine 10/01/21 documented as of this encounter
--- OUTSIDE RECORDS SUMMARY | 2022-05-01 16:13 | XMS_ITS | Encounter Summary ---
:1950 Author Organization [facility] Address [address] [place] [address] Care Team Providers Name Role Phone Elsewhere, Pcp Primary Care Provider Unavailable Reason for Visit Episode Based Medications (Routine) - Closed Specialty Diagnoses / Procedures Referred By Contact Refer red To Contact Diagnoses Malignant Neoplasm Of Uterus Endometrial (HCC) Neutropenia Chemotherapy Induced (HCC) Merlyn Rose APRN, Rst Onc Trip Sumner, M.S.N. [address] [place] [address] [place] [phone] Referral ID Status Reason Start Date Expiration Date Visits Requ ested Visits Authorized [id number] Closed 10/15/2021 10/15/2022 99 99 Encounter Details Date Type Department Care Team Description 12/31/2021 Hospital Encounter Department of Merlyn Rose Neoplasm Of Uterus Endometrial (HCC); Laboratory Medicine [facility] C.NLeopoldo, Pinky dong Chemotherapy Induced (HCC) in [place] M.S.[place] [address] [place] [address] [address] [place] [phone] Social History Tobacco Use Types Packs/Day Years [...] at Date Recorded Female 07/20/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 200 [place] [phone] 05/05/2022 Appointment Radiation Oncology Judy Mccall M.D. 200 [place] [phone] 05/06/2022 Appointment Radiation Oncology Judy Mccall M.D. 200 [place] [phone] 05/06/2022 Appointment Radiation Oncology Judy Mccall M.D. [address] [place] [phone] 05/07/2022 Appointment Radiation Oncology Judy Mccall M.D. [address] [place] [phone] 05/08/2022 Appointment Radiation Oncology Judy Mccall M.D. [address] [place] [phone] 05/22/2022 Clinical Communication Admitting/Central Scheduling 05/26/2022 Appointment Radiology Merlyn Rose APRN, C.N.Abdirashid, M.S.N. [address] [place] [phone] 05/27/2022 Office Visit Oncology Merlyn Rose APRN, C.N.PYi, M.S.N. [address] [place] [phone] documented as of this encounter Procedures Procedure Name Priority Date/Time Associated Diagnosis Comme nts CBC WITH DIFFERENTIAL, Routine 12/31/2021 11:27 Malignant Neop lasm Results for this B AM CDT Of Uterus procedure are i n Endometrial (HCC ) the results Neutropenia section. Chemotherapy Induced (HCC) COMPREHENSIVE Routine 12/31/2021 11:27 Malignant Neoplasm Resu lts for this METABOLIC PANEL, S/P AM CDT Of Uterus procedu re are in Endometrial (HCC ) the results Neutropenia section. Chemotherapy Induced (HCC) documented in this encounter Results Comprehensive Metabolic Panel (12/31/2021 11:27 AM CDT) [...] CDT eGFR-Black/Afric >90 >=60 12/31/2021 OWAT an [place] mL/min/BSA 2:13 PM CDT Comment: ----ADDITIONAL INFORMATION---- [...] Organization Address City/State/ZIP Code Phon e Number [facility]- [address] [place] [address] [facility] [place] [address] System in [place] [address] (ABNORMAL) CBC with Differential, Blood (12/31/2021 11:27 AM CDT) [facility] Method Time Signature Hemoglobin 9.9 (L) 11.6 [...] Organization Address City/State/ZIP Code Phon e Number [facility]- [facility] [address] [place] [address] System [address] documented in this encounter Visit Diagnoses Diagnosis Malignant Neoplasm Of Uterus Endometrial (HCC) Neutropenia Chemotherapy Induced (HCC) documented in this encounter Care Teams Land Law Examiner Relationship Specialty Start Date End Date Elsewhere, Pcp PCP - General Internal Medicine 10/01/21 documented as of this encounter
--- OUTSIDE RECORDS SUMMARY | 2022-05-01 16:13 | XMS_ITS | Encounter Summary ---
:1950 Author Organization [facility] Address [address] [place] [address] Care Team Providers Name Role Phone Elsewhere, Pcp Primary Care Provider Unavailable Reason for Visit Reason Comments Outpatient Infusion Episode Based Medications (Routine) - Authorized Specialty Diagnoses / Procedures Referred By Contact Refer red To Contact Diagnoses Dehydration Merlyn Rose, ALVA, Rsadalgisa Onc Trip McdermottNLeopoldo, M.S.N. [address] [place] [address] [place] [phone] [place] [phone] Referral ID Status Reason Start Date Expiration Date Visits V isits Requested Authorized [id number] Authorized 11/22/2021 11/22/2022 99 99 Encounter Details Date Type Department Care Team Description 12/10/2021 Infusion Department of Infusion Merlyn Rose, Dehydration (Primary Dx); Therapy in [place], ALVA C.N.Abdirashid, Multi ple Subsegmental Pulmonary Embolism Without Acute Cor Pulmonale (HCC); [place] M.S.N. Malignant Neoplasm Of Uterus Endometrial (HCC) [address] [place] [address] [address] [place] [phone] (Wo rk) Social History Tobacco Use Types [...] 03/17/2022 organizations such as episcopal groups, unions, fraGold Lasso or athletic groups, or school groups? 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 [address] [place] [phone] 05/05/2022 Appointment Radiation Oncology Judy Mccall M.D. [address] [place] [phone] 05/06/2022 Appointment Radiation Oncology uJdy Mccall M.D. [address] [place] [phone] 05/06/2022 Appointment Radiation Oncology Judy Mccall M.D. [address] [place] [phone] 05/07/2022 Appointment Radiation Oncology Judy Mccall M.D. [address] [place] [phone] 05/08/2022 Appointment Radiation Oncology Judy Mccall M.D. [address] [place] [phone] 05/22/2022 Clinical Communication Admitting/Central Scheduling 05/26/2022 Appointment Radiology Merlyn Rose APRN, C.NLeopoldo, M.S.N. [address] [place] [phone] 05/27/2022 Office Visit Oncology Merlyn Rose APRN, C.NAye., M.S.N. [address] [place] [phone] documented as of this encounter Visit Diagnoses Diagnosis Dehydration - Primary Multiple Subsegmental Pulmonary Embolism Without Acute Cor Pulmonale (HCC) Malignant Neoplasm Of Uterus Endometrial (HCC) documented in this encounter Administered Medications Inactive Administered Medications - up to 3 most recent administrations Medication Order MAR Action Action Date Dose Rate Site NaCl 0.9 % bolus 1,000 mL Bolus from Bag 12/10/2021 3:38 PM 1,000 mL 1000 mL/hr 1,000 mL, intravenous, at CDT 1,000 mL/hr, Administer over 1 Hours, Once, On Thu12/10/21 at 1530, For 1 dose documented in this encounter Care Teams Fire Captain Relationship Specialty Start Date End Date Elsewhere, Pcp PCP - General Internal Medicine 10/01/21 documented as of this encounter
--- OUTSIDE RECORDS SUMMARY | 2022-05-01 16:13 | XMS_ITS | Encounter Summary ---
:1950 Author Organization [facility] Address [address] [place] [address] Care Team Providers Name Role Phone Elsewhere, Pcp Primary Care Provider Unavailable Encounter Details Date Type Department Care Team Description 01/20/2022 Clinical Communication Department of Merlyn Rose , [facility] [place] M.S.N. [address] [facility] [address] [place] [phone] Social History Tobacco Use Types Packs/Day Years [...] or relatives? How often do you attend bahai or More than 4 times per year 03/17/2022 yazdanism services? 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 - 01/20/2022 1:56 PM CDT SUBJECTIVE CHIEF COMPLAINT / REASON FOR CALL Neutropenia: Postpone Chemo for one week Test Result Information: Resulted Orders CBC with Differential, Blood Result Value Ref Range Hemoglobin 9.4 (L) 11.6 - 15.0 g/dL Hematocrit 29.3 (L) 35.5 - 44.9 % Erythrocytes 2.99 (L) 3.92 - 5.13 x10(12)/L MCV 98.0 (H) 78.2 - 97.9 fL RBC Distrib Width 20.6 (H) 12.2 - 16.1 % Platelet Count 137 (L) 157 - 371 x10(9)/L Leukocytes 2.7 (L) 3.4 - 9.6 x10(9)/L Neutrophils 0.99 (L) 1.56 - 6.45 x10(9)/L Lymphocytes 1.34 0.95 - 3.07 x10(9)/L Monocytes 0.37 0.26 - 0.81 x10(9)/L Eosinophils 0.02 (L) 0.03 - 0.48 x10(9)/L Basophils 0.01 0.01 - 0.08 x10(9)/L Patient and I discussed her low Neutrophils and how we are postponing chemo for one more week. This is the second postpone of chemo due to the neutrophils. Plan is to wait a week, reschedule for next week if labs are in a safe range. Disposition/Recommendation: self-care is appropriate at this time, patient encouraged to call back with questions Information/Education: patient/caller able to teach back Caller agreeable to plan of care: yes documented in this encounter Plan of Treatment Upcoming Encounters Date Type Specialty Care Team Description 05/02/2022 Appointment Radiation Oncology Dot Lopez M.D. [address] [place] [phone] 05/05/2022 Appointment Radiation Oncology Judy Mccall M.D. [address] [place] [phone] 05/06/2022 Appointment Radiation Oncology Judy Mccall M.D. [address] [place] [phone] 05/06/2022 Appointment Radiation Oncology Judy Mccall M.D. [address] [place] [phone] 05/07/2022 Appointment Radiation Oncology Judy Mccall M.D. [address] [place] [phone] 05/08/2022 Appointment Radiation Oncology Judy Mccall M.D. [address] [place] [phone] 05/22/2022 Clinical Communication Admitting/Central Scheduling 05/26/2022 Appointment Radiology Merlyn Rose APRN, C.N.P., M.S.N. [address] [place] [phone] 05/27/2022 Office Visit Oncology Merlyn Rose APRN, C.N.P., M.S.N. [address] [place] [phone] documented as of this encounter Visit Diagnoses Not on filedocumented in this encounter Care Teams Electrical Installation Supervisor Relationship Specialty Start Date End Date Elsewhere, Pcp PCP - General Internal Medicine 10/01/21 documented as of this encounter
--- OUTSIDE RECORDS SUMMARY | 2022-05-01 16:13 | XMS_ITS | Encounter Summary ---
:1950 Author Organization [facility] Address [address] [place] [address] Care Team Providers Name Role Phone Elsewhere, Pcp Primary Care Provider Unavailable Reason for Visit Reason Comments Intake Assessment Encounter Details Date Type Department Care Team Description 01/17/2022 Clinical Communication Visit Review in In take Assessment [place], [place] [address] [place], [place] [phone] Social History Tobacco Use Types Packs/Day Years [...] More than 4 times per year 03/17/2022 quaker services? Do you belong to any clubs [...] at Date Recorded Female 07/20/2021 9:20 PM GEOLOGY ASSOCIATE documented as of this encounter Plan of Treatment Upcoming Encounters Date Type Specialty Care Team Description 05/02/2022 Appointment Radiation Oncology Dot Lopez M.D. [address] [place] [phone] 05/05/2022 Appointment Radiation Oncology Judy Mccall M.D. [address] [place] [phone] 05/06/2022 Appointment Radiation Oncology Judy Mccall M.D. [address] [place] [phone] 05/06/2022 Appointment Radiation Oncology Judy Mccall M.D. [address] [place] [phone] 05/07/2022 Appointment Radiation Oncology Judy Mccall M.D. [address] [place] [phone] 05/08/2022 Appointment Radiation Oncology Judy Mccall M.D. [address] [place] [phone] 05/22/2022 Clinical Communication Admitting/Central Scheduling 05/26/2022 Appointment Radiology Merlyn Rose APRN, C.N.P., M.S.N. [address] [place] [phone] 05/27/2022 Office Visit Oncology Merlyn Rose APRN, C.N.P., M.S.N. [address] [place] [phone] documented as of this encounter Visit Diagnoses Not on filedocumented in this encounter Care Teams Card Reader Relationship Specialty Start Date End Date Elsewhere, Pcp PCP - General Internal Medicine 10/01/21 documented as of this encounter
--- OUTSIDE RECORDS SUMMARY | 2022-05-01 16:13 | XMS_ITS | Encounter Summary ---
:1950 Author Organization [facility] Address [address] [place] [address] Care Team Providers Name Role Phone Elsewhere, Pcp Primary Care Provider Unavailable Reason for Visit Reason Comments Tooth concerns Encounter Details Date Type Department Care Team Description 12/23/2021 Clinical Communication Department of Sirisha Mancuso concerns Oncology in [place], M.S.N., R.N. 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 - 12/23/2021 1:58 PM CDT SUBJECTIVE CHIEF COMPLAINT / REASON FOR CALL Tooth concerns Information Discussed Patient states she has both tooth pain and gum pain with sores. Reminded patient that we do not recommend dental procedures while on chemo treatment. She states she understands but is concerned about the tooth pain. Due to the gum pain and sores, patient will start the baking soda/salt/water mouth rinse. PLAN Instructed patient to begin the mouth rinse today and do this 3-4 times per day. Instructed patient to reach out to us if her pain worsens significantly or the mouth rinse does not help with the sores.Discussed that the patient may have two separate issues as far as the mouth sores and tooth pain is concerned. We will start by addressing the mouth sores and hope that helps the pain. Disposition/Recommendation: self-care is appropriate at this time, patient encouraged to call back with questions Information/Education: patient/caller able to teach back Caller agreeable to plan of care: yes The following references were used: nursing clinical judgement Telephone Encounter - Lona Saravia - 12/23/2021 12:15 PM CDT Do we have a valid auth to speak with caller? Yes - pt Reason for call: Pt is calling because a tooth was getting sensitive over the past couple days and has now become painful and the gums are swelling now and red. She was told she could not do xrays or see dentist until after treatment was done but due to this recent tooth issue she is wondering what her options are? She is wondering if she could get an antibiotic or something to help? She called her dentist to ask them but they said they would need something in order for them to look at the tooth andthat the antibiotic should come from here. She would like a call back today. Thank you, Edilma Rst Onc [facility] AA Pod 2 documented in this encounter Plan of Treatment Upcoming Encounters Date Type Specialty Care Team Description 05/02/2022 Appointment Radiation Oncology Dot Lopez M.D. [address] [place] [address] [phone] 05/05/2022 Appointment Radiation Oncology Judy Mccall M.D. [address] [place] [phone] 05/06/2022 Appointment Radiation Oncology Judy Mccall M.D. [address] [place] [address] [phone] 05/06/2022 Appointment Radiation Oncology Judy Mccall M.D. [address] [place] [address] [phone] 05/07/2022 Appointment Radiation Oncology Judy Mccall M.D. [address] [place] [phone] 05/08/2022 Appointment Radiation Oncology Judy Mccall M.D. 200 [place] [phone] 05/22/2022 Clinical Communication Admitting/Central Scheduling 05/26/2022 Appointment Radiology Merlyn Rose APRN, C.N.P., M.S.N. [address] [place] [phone] 05/27/2022 Office Visit Oncology Merlyn Rose APRN, C.NLeopoldo, M.S.N. [address] [place] [phone] documented as of this encounter Visit Diagnoses Not on filedocumented in this encounter Care Teams Brand Sales Manager Relationship Specialty Start Date End Date Elsewhere, Pcp PCP - General Internal Medicine 10/01/21 documented as of this encounter
--- OUTSIDE RECORDS SUMMARY | 2022-05-01 16:13 | XMS_ITS | Encounter Summary ---
:1950 Author Organization [facility] Address [address] [place] [address] Care Team Providers Name Role Phone Elsewhere, Pcp Primary Care Provider Unavailable Reason for Visit Episode Based Medications (Routine) - Closed Specialty Diagnoses / Procedures Referred By Contact Refer red To Contact Diagnoses Malignant Neoplasm Of Uterus Endometrial (HCC) Neutropenia Chemotherapy Induced (HCC) Merlyn Rose APRN, adalgisa Onc Trip Sumner, M.S.N. [address] [place] [address] [place] [phone] Referral ID Status Reason Start Date Expiration Date Visits Requ ested Visits Authorized [id number] Closed 10/15/2021 10/15/2022 99 99 Encounter Details Date Type Department Care Team Description 01/01/2022 Infusion Department of Oncology Merlyn Rose, Malignant Neoplasm Of Uterus Endometrial (HCC) (Primary Dx); in [facility] Burak CALLE, Neutropenia C hemotherapy Induced (HCC); [place] M.S.N. Multiple Subsegmental Pulmonary Embolism Without Acute Cor Pulmonale (HCC) [address] [facility] [address] [place] [phone] (Wo rk) Social History Tobacco Use Types [...] or relatives? How often do you attend orthodoxy or More than 4 times per year 03/17/2022 yazdanism services? Do you belong to any clubs or Yes 03/17/2022 organizations such as orthodoxy groups, unions, fraternal or athletic groups, or [...] at Date Recorded Female 07/20/2021 9:20 PM SOCIAL MEDIA EXECUTIVE documented as of this encounter Last Filed Vital Signs Vital Sign Reading Time Taken Comments Blood Pressure 122/61 01/01/2022 8:13 AM CDT Pulse 66 01/01/2022 8:13 AM CDT Temperature 37.1 ??C (98.8 ??F) 01/01/2022 8:13 AM CDT Respiratory Rate - - Oxygen Saturation - - Inhaled Oxygen Concentration - - Weight 93.9 kg (207 lb 0.2 oz) 01/01/2022 8:13 AM CDT Height - - Body Mass Index 34.32 12/31/2021 2:33 PM CDT documented in this encounter Plan of Treatment Upcoming Encounters Date Type Specialty Care Team Description 05/02/2022 Appointment Radiation Oncology Dot Lopez M.D. [address] [place] [phone] 05/05/2022 Appointment Radiation Oncology Judy Mccall M.D. [address] [place] [phone] 05/06/2022 Appointment Radiation Oncology Judy Mccall M.D. [address] [place] [phone] 05/06/2022 Appointment Radiation Oncology Judy Mccall M.D. [address] [place] [phone] 05/07/2022 Appointment Radiation Oncology Judy Mccall M.D. [address] [place] [phone] 05/08/2022 Appointment Radiation Oncology Judy Mccall M.D. [address] [place] [phone] 05/22/2022 Clinical Communication Admitting/Central Scheduling 05/26/2022 Appointment Radiology Merlyn Rose APRN, C.N.P., M.S.N. [address] [place] [phone] 05/27/2022 Office Visit Oncology Merlyn Rose APRN C.N.P., M.S.N. [address] [place] [phone] documented as of this encounter Visit Diagnoses Diagnosis Malignant Neoplasm Of Uterus Endometrial (HCC) - Primary Neutropenia Chemotherapy Induced (HCC) Multiple Subsegmental Pulmonary Embolism Without Acute Cor Pulmonale (HCC) documented in this encounter Administered Medications Inactive Administered Medications - up to 3 most recent administrations Medication Order MAR Action Action Date Dose Rate Site CARBOplatin 670 mg in NaCl New 01/01/2022 12:47 PM CDT 670 mg 684 mL/hr 0.9% 342 mL IVPB (PARAPLATIN) 670 mg (rounded from 666.5 mg, Target AUC = 5), intravenous, at 684 mL/hr, Administer over 30 Minutes, Once, On Thu01/01/22 at 1200, For 1 dose dexamethasone in NaCl 0.9% IVPB 12 01/01/2022 8:40 AM CDT 12 mg 200 mL/hr mg (DECADRON) 12 mg, intravenous, at 200 mL/hr, Administer over 15 Minutes, Once, On Thu01/01/22 at 0830, For 1 dose, Give prior to PACLitaxel Refrigerate diphenhydrAMINE injection 50 mg (BENADRY L) Given 01/01/2022 8:36 AM CDT 50 mg 50 mg, intravenous, Once, On Thu01/01/22 at 0830, For 1 dose, Give prior to PACLitaxel. famotidine injection 20 mg (PEPCID) Given 01/01/2022 8:36 AM CDT 20 mg 20 mg, intravenous, Once, On Thu01/01/22 at 0830, For 1 dose, Give prior to PACLitaxel fosaprepitant in NaCl 0.9% IVPB 150 01/01/2022 9:19 AM CDT 150 mg 500 mL/hr mg (EMEND) 150 mg, intravenous, at 500 mL/hr, Administer over 30 Minutes, Once, On Thu01/01/22 at 0830, For 1 dose, Incompatible with solutions containing divalent cations (calcium, magnesium) including lactated Ringer's solution. ondansetron in NaCl 0.9% IVPB 16 mg 01/01/2022 8:59 AM CDT 16 mg 232 mL/hr (ZOFRAN) 16 mg, intravenous, at 232 mL/hr, Administer over 15 Minutes, Once, On Thu01/01/22 at 0830, For 1 dose PACLitaxeL 288 mg in NaCl 0.9% New 01/01/2022 9:54 AM CDT 288 mg 108 mL/hr (non-PVC) 323 mL IVPB (TAXOL) 288 mg (rounded from 289.8 mg = 140 mg/m2 ? 2.07 m2 Treatment Plan BSA from Measured weight), intravenous, at 108 mL/hr, Administer over 3 Hours, Once, On Thu01/01/22 at 0900, For 1 dose, Administer via 0.22 micron in-line filter. pegfilgrastim on-body injector Given 01/01/2022 1:13 PM CDT 6 mg Left Lower Abdomen 6 mg (NEULASTA ONPRO) 6 mg, subcutaneous, Once, On Thu01/01/22 at 0830, For 1 dose, I discussed options with patient: Did not discuss with patient documented in this encounter Care Teams Transfer Table Operator Relationship Specialty Start Date End Date Elsewhere, Pcp PCP - General Internal Medicine 10/01/21 documented as of this encounter
--- OUTSIDE RECORDS SUMMARY | 2022-05-01 16:13 | XMS_ITS | Encounter Summary ---
:1950 Author Organization [facility] Address [address] [place] [address] Care Team Providers Name Role Phone Elsewhere, Pcp Primary Care Provider Unavailable Reason for Visit Reason Comments SX Face Redness Encounter Details Date Type Department Care Team Description 12/12/2021 Clinical Communication Department of Sirisha Mancuso S X Face Redness Oncology in [place], M.S.N., R.N. [place], [address] [place] [address] [place] [phone] [place], [place] [phone] (Work) [phone] Social History Tobacco Use Types Packs/Day Years [...] More than 4 times per year 03/17/2022 mu-ism services? 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 - 12/12/2021 1:56 PM CDT Sent portal message. OK to page me if she returns call. Telephone Encounter - Celina Valadez - 12/12/2021 11:00 AM CDT Do we have a valid auth to speak with caller? Yes Reason for call: Mrs. Pavon called as she woke up this morning with redness on her face. She states it's a little itchy. She is wondering if this is a normal reaction to her chemotherapy. Thank you, Bright Valadez Rst Onc [facility] Aa Pod 2 documented in this encounter Plan of Treatment Upcoming Encounters Date Type Specialty Care Team Description 05/02/2022 Appointment Radiation Oncology Dot Lopez M.D. [address] [place] [phone] 05/05/2022 Appointment Radiation Oncology Judy Mccall M.D. [address] [place] [phone] 05/06/2022 Appointment Radiation Oncology Judy Mccall M.D. [address] [place] [phone] 05/06/2022 Appointment Radiation Oncology Judy Mccall M.D. [address] [place] [phone] 05/07/2022 Appointment Radiation Oncology Judy Mccall M.D. [address] [place] [phone] 05/08/2022 Appointment Radiation Oncology Judy Mccall M.D. [address] [place] [phone] 05/22/2022 Clinical Communication Admitting/Central Scheduling 05/26/2022 Appointment Radiology Merlyn Rose APRN C.N.Anahi., M.S.N. [address] [place] [phone] 05/27/2022 Office Visit Oncology Merlyn Rose APRN, C.N.P., M.S.N. [address] [place] [phone] documented as of this encounter Visit Diagnoses Not on filedocumented in this encounter Care Teams Manager Quality Systems Relationship Specialty Start Date End Date Elsewhere, Pcp PCP - General Internal Medicine 10/01/21 documented as of this encounter
--- OUTSIDE RECORDS SUMMARY | 2022-05-01 16:13 | XMS_ITS | Encounter Summary ---
:1950 Author Organization [facility] Address [address] [place] [address] Care Team Providers Name Role Phone Elsewhere, Pcp Primary Care Provider Unavailable Reason for Visit Episode Based Medications (Routine) - Closed Specialty Diagnoses / Procedures Referred By Contact Refer red To Contact Diagnoses Malignant Neoplasm Of Uterus Endometrial (HCC) Neutropenia Chemotherapy Induced (HCC) Merlyn Rose APRN, Rst Onc Trip Sumner, M.S.N. [address] [place] [address] [address] [place], [place] [phone] Referral ID Status Reason Start Date Expiration Date Visits Requ ested Visits Authorized [id number] Closed 10/15/2021 10/15/2022 99 99 Encounter Details Date Type Department Care Team Description 12/31/2021 Office Visit Department of Gibran Muniz N eoplasm Of Uterus Endometrial (HCC) (Primary Dx); Oncology jose miguel Brooks M.D., Ph.D. 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 How often do you attend synagogue or More than 4 times per year 03/17/2022 gnosticism services? 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 - 12/31/2021 2:40 PM CDT SUBJECTIVE CHIEF COMPLAINT/REASON FOR VISIT Seen by Medical Oncology for endometrial cancer, serous HISTORY OF PRESENT ILLNESS Ms. Nelda Pavon is a 71 y.o. female with the following oncologic history: Oncology History Malignant Neoplasm Of Uterus Endometrial (HCC) Genetic Testing and Tumor Genotyping IHC: Normal expression of MLH1, MSH2, MSH6, and PMS2 HER2 negative Negative germline genetic testing in 2021; Breast and Crop Quantitative Geneticist + Colorectal Cancers panel through [facility]. 08/12/2021 Initial Diagnosis Began experiencing PMB [...] Chemotherapy CARBOplatin AUC 6 / PACLitaxel ( STORAGE BATTERY INSPECTOR AND TESTER ) Start Date: 10/22/2021 INTERVAL HISTORY: She is seen in Medical Oncology today to consider cycle 4. Other than a mild peripheral neuropathy, and some mild fatigue, no major issues. REVIEW OF SYSTEMS Pertinent items are noted in HPI. Otherwise, a 14-point review of systems is negative. OBJECTIVE PHYSICAL EXAMINATION General: Well Eyes: No scleral icterus Heart: Regular rate and rhythm. No murmurs Lungs: Clear to auscultation bilaterally Abdomen: Soft, non-tender, non-distended, bowel sounds are active Extremities: No edema, clubbing, or leg tenderness Skin: No rash on exposed areas Neuro: Normal gait from bench to bed ASSESSMENT / PLAN Problem List Items Addressed This Visit Malignant Neoplasms Malignant Neoplasm Of Uterus Endometrial (HCC) - Primary Other Neutropenia Chemotherapy Induced (HCC) Other Wheel Fitter Current Drug Therapy Thrombocytopenia (HCC) #1 Serous endometrial cancer Neutropenia is not a problem today, due to the Neulasta. Although her thrombocytopenia is worse thanpreviously, it remains above threshold for treatment. However, we may need to adjust with the next cycle. No side effects from the Neulasta. Continue with carboplatin/paclitaxel chemotherapy at the current dose reduction. No additional dose modifications. Continue Neulasta. ECOG performance status is 0 PATIENT EDUCATION Ready to learn, no apparent learning barriers were identified; learning preferences include listening. Explained diagnosis and treatment plan; patient expressed understanding of the content. ADMINISTRATIVE BILLING I personally spent 45 minutes in care of the patient today. Time includes both non face to face and face to face patient care. documented in this encounter Plan of Treatment Upcoming Encounters Date Type Specialty Care Team Description 05/02/2022 Appointment Radiation Oncology Dot Lopez M.D. [address] [place] [phone] 05/05/2022 Appointment Radiation Oncology Judy Mccall M.D. [address] [place] [phone] 05/06/2022 Appointment Radiation Oncology Judy Mccall M.D. [address] [place] [phone] 05/06/2022 Appointment Radiation Oncology Judy Mccall M.D. [address] [place] [phone] 05/07/2022 Appointment Radiation Oncology Judy Mccall M.D. [address] [place] [phone] 05/08/2022 Appointment Radiation Oncology Judy Mccall M.D. [address] [place] [phone] 05/22/2022 Clinical Communication Admitting/Central Scheduling 05/26/2022 Appointment Radiology Merlyn Rose APRN, C.N.P., M.S.N. [address] [place] [phone] 05/27/2022 Office Visit Oncology Merlyn Rose APRN C.N.P., M.S.N. 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
--- OUTSIDE RECORDS SUMMARY | 2022-05-01 16:14 | XMS_ITS | Encounter Summary ---
:1950 Author Organization [facility] Address [address] [place] [address] Care Team Providers Name Role Phone Elsewhere, Pcp Primary Care Provider Unavailable Encounter Details Date Type Department Care Team Description 12/05/2021 Orders Only [facility] [place] [place] Burak CALLE, M.S.N. [address] [facility] [address] [place] [address] [place], [place] [phone] (Wo rk) Social History Tobacco Use Types [...] More than 4 times per year 03/17/2022 jew services? 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 [address] [place] [phone] 05/05/2022 Appointment Radiation Oncology Judy Mccall M.D. [address] [place] [phone] 05/06/2022 Appointment Radiation Oncology Judy Mccall M.D. [address] [place] [address] [phone] 05/06/2022 Appointment Radiation Oncology Judy Mccall M.D. [address] [place] [address] [phone] 05/07/2022 Appointment Radiation Oncology Judy Mccall M.D. [address] [place] [address] [phone] 05/08/2022 Appointment Radiation Oncology Judy Mccall M.D. [address] [place] [phone] 05/22/2022 Clinical Communication Admitting/Central Scheduling 05/26/2022 Appointment Radiology Merlyn Rose APRN, C.N.P., M.S.N. [address] [place] [phone] 05/27/2022 Office Visit Oncology Merlyn Rose APRN, C.N.P., M.S.N. [address] [place] [phone] documented as of this encounter Visit Diagnoses Not on filedocumented in this encounter Care Teams Retread Operator Relationship Specialty Start Date End Date Elsewhere, Pcp PCP - General Internal Medicine 10/01/21 documented as of this encounter
--- OUTSIDE RECORDS SUMMARY | 2022-05-01 16:14 | XMS_ITS | Encounter Summary ---
:1950 Author Organization [facility] Address [address] [place] [address] Care Team Providers Name Role Phone Elsewhere, Pcp Primary Care Provider Unavailable Encounter Details Date Type Department Care Team Description 11/18/2021 Orders Only Division of Hepatobiliary and Ronda Grimaldo, Pancreas Surgery in [facility] [address] [place] [phone] Social History Tobacco Use Types Packs/Day Years [...] More than 4 times per year 03/17/2022 amish services? 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 [address] [place] [phone] 05/05/2022 Appointment Radiation Oncology Judy Mccall M.D. [address] [place] [phone] 05/06/2022 Appointment Radiation Oncology Judy Mccall M.D. [address] [place] [phone] 05/06/2022 Appointment Radiation Oncology Judy Mccall M.D. [address] [place] [phone] 05/07/2022 Appointment Radiation Oncology Judy Mccall M.D. [address] [place] [phone] 05/08/2022 Appointment Radiation Oncology Judy Mccall M.D. [address] [place] [address] [phone] 05/22/2022 Clinical Communication Admitting/Central Scheduling 05/26/2022 Appointment Radiology Merlyn Rose APRN, C.N.P., M.S.N. [address] [place] [phone] 05/27/2022 Office Visit Oncology Merlyn Rose APRN, C.N.P., M.S.N. [address] [place] [phone] documented as of this encounter Visit Diagnoses Not on filedocumented in this encounter Care Teams Patent Lawyer Relationship Specialty Start Date End Date Elsewhere, Pcp PCP - General Internal Medicine 10/01/21 documented as of this encounter
--- OUTSIDE RECORDS SUMMARY | 2022-05-01 16:14 | XMS_ITS | Encounter Summary ---
:1950 Author Organization [facility] Address [address] [place] [address] Care Team Providers Name Role Phone Elsewhere, Pcp Primary Care Provider Unavailable Reason for Visit Reason Comments Med Refill clindamycin Encounter Details Date Type Department Care Team Description 12/05/2021 Refill Department of Oncology Merlyn Rose, Med Refill (clindamycin in [facility] trey Ellen CALLE.NYiPYi, M.S.N. ) [address] [facility] [address] [place] [phone] (Wo rk) Social History Tobacco Use Types [...] or relatives? How often do you attend mandaeism or More than 4 times per year 03/17/2022 jewish services? 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 documented in this encounter Plan of Treatment Upcoming Encounters Date Type Specialty Care Team Description 05/02/2022 Appointment Radiation Oncology Dot Lopez M.D. 200 [place] [phone] 05/05/2022 Appointment Radiation Oncology Judy Mccall M.D. [address] [place] [address] [phone] 05/06/2022 Appointment Radiation Oncology Judy Mccall M.D. [address] [place] [address] [phone] 05/06/2022 Appointment Radiation Oncology Judy Mccall M.D. [address] [place] [address] [phone] 05/07/2022 Appointment Radiation Oncology Judy Mccall M.D. [address] [place] [phone] 05/08/2022 Appointment Radiation Oncology Judy Mccall M.D. [address] [place] [phone] 05/22/2022 Clinical Communication Admitting/Central Scheduling 05/26/2022 Appointment Radiology Merlyn Rose APRN, C.N.Anahi., M.S.N. [address] [place] [phone] 05/27/2022 Office Visit Oncology Merlyn Rose APRN, C.N.P., M.S.N. [address] [place] [phone] documented as of this encounter Visit Diagnoses Not on filedocumented in this encounter Care Teams Traffic Operations Engineer Relationship Specialty Start Date End Date Elsewhere, Pcp PCP - General Internal Medicine 10/01/21 documented as of this encounter
--- OUTSIDE RECORDS SUMMARY | 2022-05-01 16:14 | XMS_ITS | Encounter Summary ---
:1950 Author Organization [facility] Address [address] [place] [address] Care Team Providers Name Role Phone Elsewhere, Pcp Primary Care Provider Unavailable Reason for Visit Episode Based Medications (Routine) - Closed Specialty Diagnoses / Procedures Referred By Contact Refer red To Contact Diagnoses Malignant Neoplasm Of Uterus Endometrial (HCC) Neutropenia Chemotherapy Induced (HCC) Merlyn Rose APRN, Rst Onc Trip McdermottNLeopoldo, M.S.N. [address] [place] [address] [place] [phone] Referral ID Status Reason Start Date Expiration Date Visits Requ ested Visits Authorized [id number] Closed 10/15/2021 10/15/2022 99 99 Encounter Details Date Type Department Care Team Description 11/11/2021 Hospital Encounter Department of Merlyn Rose Neoplasm Laboratory Medicine [facility] Sam C.N.PYi, Of Aaron gallo in [place]ice M.S.NYi Endometrial (HCC) [address] [place] [phone] Social History Tobacco Use Types Packs/Day Years [...] place to sleep or slept in a custodial (including now)? Education Answer Date Recorded What is the highest level of school Bachelor's degree (e.g., BA, AB, 07/20/2021 you have completed or the highest BS) degree you have received? 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 CRANBERRY ORAL Take 1 tablet by 0 [...] mg total) 2 (two) times a day. oxyCODONE (ROXICODONE) 5 Take 1 tablet (5 mg 6 tablet 0 12/10/2021 mg immediate release total) by mouth tabletIndications: Acute every 4 (four) Pain hours as needed for moderate pain or score 4-6 of 10 or severe pain or score 7-10 of 10 (Administer if pain is unrelieved by acetaminophen.) Indication: Acute Pain. documented as of this encounter Plan of Treatment Upcoming Encounters Date Type Specialty Care Team Description 05/02/2022 Appointment Radiation Oncology Dot Lopez M.D. 200 [place] [phone] 05/05/2022 Appointment Radiation Oncology Judy Mccall M.D. 200 [place] [phone] 05/06/2022 Appointment Radiation Oncology Judy Mccall M.D. 200 [place] [phone] 05/06/2022 Appointment Radiation Oncology Judy Mccall M.D. [address] [place] [phone] 05/07/2022 Appointment Radiation Oncology Judy Mccall M.D. [address] [place] [phone] 05/08/2022 Appointment Radiation Oncology Judy Mccall M.D. [address] [place] [phone] 05/22/2022 Clinical Communication Admitting/Central Scheduling 05/26/2022 Appointment Radiology Merlyn Rose APRN, C.N.Abdirashid, M.S.N. [address] [place] [phone] 05/27/2022 Office Visit Oncology Merlyn Rose APRN, C.NYiPYi, M.S.N. [address] [place] [phone] documented as of this encounter Procedures Procedure Name Priority Date/Time Associated Comments Diagnosis CBC WITH DIFFERENTIAL, Routine 11/11/2021 10:31 Malignant Neop lasm Results for this B AM CDT Of Uterus procedure are i n Endometrial (HCC) the result s section. COMPREHENSIVE Routine 11/11/2021 10:31 Malignant Neoplasm Resu lts for this METABOLIC PANEL, S/P AM CDT Of Uterus procedu re are in Endometrial (HCC) the result s section. documented in this encounter Results Comprehensive Metabolic Panel (11/11/2021 10:31 AM CDT) P athologist Signature Potassium, P 4.0 3.6 - 5.2 11/11/2021 [place] mmol/L 1:52 PM CDT Sodium, P 142 135 - 145 11/11/2021 [place] mmol/L 1:52 PM CDT Chloride, P 105 98 - 107 11/11/2021 [place] mmol/L 1:52 PM CDT Bicarbonate, P 28 22 - 29 11/11/2021 [place] mmol/L 1:52 PM CDT Anion Gap, P 9 7 - 15 11/11/2021 [place] 1:52 PM CDT BUN (Blood Urea 10 6 - 21 11/11/2021 [facility] Nitrogen), P mg/dL 1:52 PM CDT Creatinine 0.75 0.59 - 11/11/2021 [facility] 1.04 mg/dL 1:52 PM CDT eGFR-Black/Afric >90 >=60 11/11/2021 [facility] an Indian mL/min/BSA 1:52 PM CDT Comment: ----ADDITIONAL INFORMATION---- Estimated GFR calculated using the 2009 CKD_EPI creatinine equation. eGFR Non-Black/ 81 >=60 mL/min/BSA 1:52 PM CDT [facility] Comment: ----ADDITIONAL INFORMATION---- Estimated GFR calculated using the 2009 CKD_EPI creatinine equation. Calcium, Total, P 9.2 8.8 - 10.2 mg/dL 11/11/2021 1:52 PM CDT [place] Glucose, P 107 70 - 140 mg/dL 11/11/2021 1:52 PM CDT O PEDRO Protein, Total, P 6.4 6.3 - 7.9 g/dL 11/11/2021 1:52 P M CDT [place] Albumin, P 4.1 3.5 - 5.0 g/dL 11/11/2021 1:52 PM CDT O PEDRO Aspartate Aminotransferase 22 8 - 43 U/L 11/11/2021 1 :52 PM CDT [place] (AST), P Alkaline Phosphatase, P 60 35 - 104 U/L 11/11/2021 1: 52 PM CDT [facility] Alanine Aminotransferase (ALT), 14 7 - 45 U/L 022 1:52 PM CDT [facility] P Bilirubin, Total, P 0.2 <=1.2 mg/dL 11/11/2021 1:52 PM CDT [facility] Specimen Anatomical Collection Method Collection Time Receive d Time (Source) Location / / Volume Laterality Blood (Blood, 11/11/2021 10:31 11/11/2021 1:07 Venous) AM CDT PM CDT Merlyn Rose APRN, C.N.P., M.S.N. LAB BLOOD ADD-ON Performing Organization Address City/State/ZIP Code Phon e Number [facility]- [address] [place] [address] [place] [address] System in [place] [address] (ABNORMAL) CBC with Differential, Blood (11/11/2021 10:31 AM CDT) [facility] gist Method Time Signature Hemoglobin 11.3 (L) 11.6 - 11/11/2021 FB60 15.0 g/dL 11:24 AM CDT Hematocrit 36.1 35.5 - 11/11/2021 FB60 44.9 % 11:24 AM CDT Erythrocytes 4.00 3.92 - 11/11/2021 FB60 5.13 11:24 AM CDT x10(12)/L MCV 90.3 78.2 - 11/11/2021 FB60 97.9 fL 11:24 AM CDT RBC Distrib Width 15.5 12.2 - 11/11/2021 FB60 16.1 % 11:24 AM CDT Platelet Count 118 (L) 157 - 371 11/11/2021 FB60 x10(9)/L 11:24 AM CDT Leukocytes 3.5 3.4 - 9.6 11/11/2021 FB60 x10(9)/L 11:24 AM CDT Neutrophils 1.71 1.56 - 11/11/2021 FB60 6.45 11:24 AM CDT x10(9)/L Lymphocytes 1.27 0.95 - 11/11/2021 FB60 3.07 11:24 AM CDT x10(9)/L Monocytes 0.42 0.26 - 11/11/2021 FB60 0.81 11:24 AM CDT x10(9)/L Eosinophils 0.06 0.03 - 11/11/2021 FB60 0.48 11:24 AM CDT x10(9)/L Basophils 0.01 0.01 - 11/11/2021 FB60 0.08 11:24 AM CDT x10(9)/L Specimen Anatomical Collection Method Collection Time Receive d Time (Source) Location / / Volume Laterality Blood (Blood, 11/11/2021 10:31 11/11/2021 Venous) AM CDT 10:31 AM CDT Merlyn Rose APRN C.N.P., M.S.N. LAB BLOOD ADD-ON Performing Organization Address City/State/ZIP Code Phon e Number [place] [address] [place], [place] [phone] [place] [address] LAB [address] [place] [address] System in [address] documented in this encounter Visit Diagnoses Diagnosis Malignant Neoplasm Of Uterus Endometrial (HCC) documented in this encounter Care Teams International Student Advisor Relationship Specialty Start Date End Date Elsewhere, Pcp PCP - General Internal Medicine 10/01/21 documented as of this encounter
--- OUTSIDE RECORDS SUMMARY | 2022-05-01 16:14 | XMS_ITS | Encounter Summary ---
:1950 Author Organization [facility] Address [address] [place] [address] Care Team Providers Name Role Phone Elsewhere, Pcp Primary Care Provider Unavailable Encounter Details Date Type Department Care Team Description 12/03/2021 Orders Only Department of Oncology Merlyn Rose Dehydration (Primary in [place], MANAGER PARTY, C.N.P., Dx) [facility] [address] [facility] [address] [place] [phone] Social History Tobacco Use Types Packs/Day Years [...] or relatives? How often do you attend scientologist or More than 4 times per year 03/17/2022 islam services? 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 [address] [place] [address] [phone] 05/05/2022 Appointment Radiation Oncology Judy Mccall M.D. [address] [place] [address] [phone] 05/06/2022 Appointment Radiation Oncology Judy Mccall M.D. [address] [place] [address] [phone] 05/06/2022 Appointment Radiation Oncology Judy Mccall M.D. [address] [place] [address] [phone] 05/07/2022 Appointment Radiation Oncology Judy Mccall M.D. [address] [place] [address] [phone] 05/08/2022 Appointment Radiation Oncology Judy Mccall M.D. [address] [place] [phone] 05/22/2022 Clinical Communication Admitting/Central Scheduling 05/26/2022 Appointment Radiology Merlyn Rose APRN, C.N.P., M.S.N. [address] [place] [phone] 05/27/2022 Office Visit Oncology Merlyn Rose APRN, C.N.Anahi., M.S.N. [address] [place] [address] [phone] documented as of this encounter Visit Diagnoses Diagnosis Dehydration - Primary documented in this encounter Care Teams Film Cutter Relationship Specialty Start Date End Date Elsewhere, Pcp PCP - General Internal Medicine 10/01/21 documented as of this encounter
--- OUTSIDE RECORDS SUMMARY | 2022-05-01 16:14 | XMS_ITS | Encounter Summary ---
:1950 Author Organization [facility] Address [address] [place] [phone] Care Team Providers Name Role Phone Elsewhere, Pcp Primary Care Provider Unavailable Reason for Visit Episode Based Medications (Routine) - Closed Specialty Diagnoses / Procedures Referred By Contact Refer red To Contact Diagnoses Malignant Neoplasm Of Uterus Endometrial (HCC) Neutropenia Chemotherapy Induced (HCC) Merlyn Rose APRN, Rst Onc Trip McdermottNLeopoldo, M.S.N. [address] [place] [address] [place] [phone] Referral ID Status Reason Start Date Expiration Date Visits Requ ested Visits Authorized [id number] Closed 10/15/2021 10/15/2022 99 99 Encounter Details Date Type Department Care Team Description 12/02/2021 Hospital Encounter Department of Merlyn Rose Neoplasm Laboratory Medicine ALVA Sam C.N.PYi, Of Aaron gallo in [place] M.S.NYi Endometrial (HCC) [address] [place] [phone] Social History Tobacco Use Types Packs/Day Years [...] or relatives? How often do you attend latter-day or More than 4 times per year 03/17/2022 bahai services? 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 clindamycin (CLEOCIN T) 1 Apply 1 application 60 mL 0 0 11/12/2021 12/05/2021 % lotion topically 2 (two) times a day. Apply to scalp. oxyCODONE (ROXICODONE) 5 Take 1 tablet (5 [...] Appointment Radiation Oncology Dot Lopez M.D. 200 [place] [phone] 05/05/2022 Appointment Radiation Oncology Judy Mccall M.D. 200 [place] [phone] 05/06/2022 Appointment Radiation Oncology Judy Mccall M.D. [address] [place] [phone] 05/06/2022 Appointment Radiation Oncology Judy Mccall M.D. [address] [place] [phone] 05/07/2022 Appointment Radiation Oncology Judy Mccall M.D. [address] [place] [phone] 05/08/2022 Appointment Radiation Oncology Judy Mccall M.D. [address] [place] [phone] 05/22/2022 Clinical Communication Admitting/Central Scheduling 05/26/2022 Appointment Radiology Merlyn Rose APRN C.N.PYi, M.S.N. [address] [place] [phone] 05/27/2022 Office Visit Oncology Merlyn Rose APRN C.N.P., M.S.N. [address] [place] [phone] documented as of this encounter Procedures Procedure Name Priority Date/Time Associated Comments Diagnosis CBC WITH DIFFERENTIAL, Routine 12/02/2021 10:30 Malignant Neop lasm Results for this B AM CDT Of Uterus procedure are i n Endometrial (HCC) the result s section. COMPREHENSIVE Routine 12/02/2021 10:30 Malignant Neoplasm Resu lts for this METABOLIC PANEL, S/P AM CDT Of Uterus procedu re are in Endometrial (HCC) the result s section. documented in this encounter Results (ABNORMAL) Comprehensive Metabolic Panel (12/02/2021 10:30 AM CDT) P athologist Signature Potassium, P 3.4 (L) 3.6 - 5.2 12/02/2021 [place] mmol/L 1:39 PM CDT Sodium, P 143 135 - 145 12/02/2021 [place] mmol/L 1:39 PM CDT Chloride, P 106 98 - 107 12/02/2021 [place] mmol/L 1:39 PM CDT Bicarbonate, P 26 22 - 29 12/02/2021 [place] mmol/L 1:39 PM CDT Anion Gap, P 11 7 - 15 12/02/2021 [place] 1:39 PM CDT BUN (Blood Urea 8 6 - 21 12/02/2021 [place] Nitrogen), P mg/dL 1:39 PM CDT Creatinine 0.67 0.59 - 12/02/2021 [place] 1.04 mg/dL 1:39 PM CDT eGFR-Black/Afri >90 >=60 12/02/2021 [place] can Central African mL/min/BSA 1:39 PM CDT Comment: ----ADDITIONAL INFORMATION---- Estimated GFR calculated using the 2009 CKD_EPI creatinine equation. eGFR Non-Black/ 89 >=60 mL/min/BSA 1:39 PM CDT [place] Comment: ----ADDITIONAL INFORMATION---- Estimated GFR calculated using the 2009 CKD_EPI creatinine equation. Calcium, Total, P 8.8 8.8 - 10.2 mg/dL 12/02/2021 1:39 PM CDT [place] Glucose, P 129 70 - 140 mg/dL 12/02/2021 1:39 PM CDT O PEDRO Protein, Total, P 6.2 (L) 6.3 - 7.9 g/dL 12/02/2021 1:39 P M CDT [place] Albumin, P 3.8 3.5 - 5.0 g/dL 12/02/2021 1:39 PM CDT O PEDRO Aspartate Aminotransferase 18 8 - 43 U/L 12/02/2021 1 :39 PM CDT [place] (AST), P Alkaline Phosphatase, P 69 35 - 104 U/L 12/02/2021 1: 39 PM CDT [place] Alanine Aminotransferase 10 7 - 45 U/L 12/02/2021 1:3 9 PM CDT [place] (ALT), P Bilirubin, Total, P 0.2 <=1.2 mg/dL 12/02/2021 1:39 PM CDT OW Specimen Anatomical Collection Method Collection Time Receive d Time (Source) Location / / Volume Laterality Blood (Blood, 12/02/2021 10:30 12/02/2021 Venous) AM CDT 12:58 PM CDT Baldemar Santillan APRNNAye., M.S.N. LAB BLOOD ADD-ON Performing Organization Address City/State/ZIP Code Phon e Number [facility]- [address] [place] [address] [facility] [place] [address] System in [place] [address] (ABNORMAL) CBC with Differential, Blood (12/02/2021 10:30 AM CDT) [facility] gist Method Time Signature Hemoglobin 10.5 (L) 11.6 - 12/02/2021 FB60 15.0 g/dL 11:39 AM CDT Hematocrit 32.5 (L) 35.5 - 12/02/2021 FB60 44.9 % 11:39 AM CDT Erythrocytes 3.63 (L) 3.92 - 12/02/2021 FB60 5.13 11:39 AM CDT x10(12)/L MCV 89.5 78.2 - 12/02/2021 FB60 97.9 fL 11:39 AM CDT RBC Distrib Width 15.6 12.2 - 12/02/2021 FB60 16.1 % 11:39 AM CDT Platelet Count 179 157 - 371 12/02/2021 FB60 x10(9)/L 11:39 AM CDT Leukocytes 2.4 (L) 3.4 - 9.6 12/02/2021 FB60 x10(9)/L 11:39 AM CDT Neutrophils 0.84 (L) 1.56 - 12/02/2021 FB60 6.45 11:39 AM CDT x10(9)/L Lymphocytes 1.31 0.95 - 12/02/2021 FB60 3.07 11:39 AM CDT x10(9)/L Monocytes 0.22 (L) 0.26 - 12/02/2021 FB60 0.81 11:39 AM CDT x10(9)/L Eosinophils 0.01 (L) 0.03 - 12/02/2021 FB60 0.48 11:39 AM CDT x10(9)/L Basophils 0.00 (L) 0.01 - 12/02/2021 FB60 0.08 11:39 AM CDT x10(9)/L Specimen Anatomical Collection Method Collection Time Receive d Time (Source) Location / / Volume Laterality Blood (Blood, 12/02/2021 10:30 12/02/2021 Venous) AM CDT 10:31 AM CDT Merlyn Rose APRN C.N.P., M.S.N. LAB BLOOD ADD-ON Performing Organization Address City/State/ZIP Code Phon e Number [facility]- [facility] [place] [address] [facility] [address] [place] [address] documented in this encounter Visit Diagnoses Diagnosis Malignant Neoplasm Of Uterus Endometrial (HCC) documented in this encounter Care Teams Panel Laminator Relationship Specialty Start Date End Date Elsewhere, Pcp PCP - General Internal Medicine 10/01/21 documented as of this encounter
--- OUTSIDE RECORDS SUMMARY | 2022-05-01 16:14 | XMS_ITS | Encounter Summary ---
:[address] [facility] Address [address] [place] [address] Care Team Providers Name Role Phone Elsewhere, Pcp Primary Care Provider Unavailable Reason for Visit Reason Comments Outpatient Infusion Hydration 0.9 NS Episode Based Medications (Routine) - Authorized Specialty Diagnoses / Procedures Referred By Contact Refer red To Contact Diagnoses Dehydration Merlyn Rose APRN, Rsadalgisa Onc Trip McdermottNLeopoldo, M.S.N. [address] [facility] [address] [place] [phone] [place] [phone] Referral ID Status Reason Start Date Expiration Date Visits V isits Requested Authorized [id number] Authorized 11/22/2021 11/22/2022 99 99 Encounter Details Date Type Department Care Team Description 12/04/2021 Infusion Department of Infusion Merlyn Rose, Dehydration (Primary Dx); Therapy in [place], Ellen CALLE.N.Abdirashid, Multi ple Subsegmental Pulmonary Embolism Without Acute Cor Pulmonale (HCC); [place] M.S.N. 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 [address] [place] [phone] 05/05/2022 Appointment Radiation Oncology Judy Mccall M.D. [address] [place] [phone] 05/06/2022 Appointment Radiation Oncology Judy Mccall M.D. [address] [place] [phone] 05/06/2022 Appointment Radiation Oncology Judy Mccall M.D. [address] [place] [phone] 05/07/2022 Appointment Radiation Oncology Judy Mccall M.D. [address] [place] [phone] 05/08/2022 Appointment Radiation Oncology Judy Mccall M.D. [address] [place] [phone] 05/22/2022 Clinical Communication Admitting/Central Scheduling 05/26/2022 Appointment Radiology Merlyn Rose APRN, Ellen.N.Anahi., M.S.N. [address] [place] [phone] 05/27/2022 Office Visit Oncology Merlyn Rose APRN, C.N.P., M.S.N. [address] [place] [phone] documented as of this encounter Visit Diagnoses Diagnosis Dehydration - Primary Multiple Subsegmental Pulmonary Embolism Without Acute Cor Pulmonale (HCC) Malignant Neoplasm Of Uterus Endometrial (HCC) documented in this encounter Administered Medications Inactive Administered Medications - up to 3 most recent administrations Medication Order MAR Action Action Date Dose Rate Site NaCl 0.9 % bolus 1,000 mL New Bag 12/04/2021 2:54 PM CDT 1,000 mL 1000 mL/hr 1,000 mL, intravenous, at 1,000 mL/hr, Administer over 1 Hours, Once, On Thu12/04/21 at 1445, For 1 dose documented in this encounter Care Teams Data Governance Analyst Relationship Specialty Start Date End Date Elsewhere, Pcp PCP - General Internal Medicine 10/01/21 documented as of this encounter
--- OUTSIDE RECORDS SUMMARY | 2022-05-01 16:14 | XMS_ITS | Encounter Summary ---
:1950 Author Organization [facility] Address 200 [place] [address] Care Team Providers Name Role Phone Elsewhere, Pcp Primary Care Provider Unavailable Reason for Referral Outpatient (Routine) - Closed Specialty Diagnoses / Procedures Referred By Contact Refer red To Contact Physical Medicine and Diagnoses Malignant Neoplasm Of Uterus Endometrial (HCC) Merlyn Rose [facility] CALLE, M.S.N. [address] [place] [phone] Referral ID Status Reason Start Date Expiration Date Visits Requ ested Visits Authorized [id number] Closed 11/12/2021 11/12/2022 1 1 Scheduling Instructions Please try to schedule with return next week with WELLNESS PROGRAM MANAGER surgery. Thank you. Reason for Visit Episode Based Medications (Routine) - Closed Specialty Diagnoses / Procedures Referred By Contact Refer red To Contact Diagnoses Malignant Neoplasm Of Uterus Endometrial (HCC) Neutropenia Chemotherapy Induced (HCC) Merlyn Rose APRN, Rsadalgisa Onc Trip Sum[place], M.S.N. 200 [facility] 200 [place] [phone] Referral ID Status Reason Start Date Expiration Date Visits Requ ested Visits Authorized [id number] Closed 10/15/2021 10/15/2022 99 99 Encounter Details Date Type Department Care Team Description 11/12/2021 Office Visit Department of Merlyn Rose Malignan t Neoplasm Of Oncology in INTERLOCKING AND SIGNAL MECHANIC, C.N.P., Uterus Endomet rial [place], [place] M.S.N. ([facility]) [address] [place] [phone] Social History Tobacco Use Types Packs/Day Years [...] place to sleep or slept in a detention (including now)? Education Answer Date Recorded What is the highest level of school Bachelor's degree (e.g., BA, AB, 07/20/2021 you have completed or the highest BS) degree you have received? 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 - 11/12/2021 9:00 AM CDT SUBJECTIVE CHIEF COMPLAINT/PUPROSE OF VISIT Ms. Pavon is a 70 y.o. woman with stage IIIC2 serous endometrial cancer Collaborating provider: Dr. Maira Baez [phone]) HISTORY OF PRESENT ILLNESS Ms. Pavon is a very pleasant 70 y.o. woman with the following oncologic history: Oncology History Malignant Neoplasm Of Uterus Endometrial (HCC) Genetic Testing and Tumor Genotyping IHC: Normal expression of MLH1, MSH2, MSH6, and PMS2 HER2 negative 08/12/2021 Initial Diagnosis Began experiencing PMB in [...] Chemotherapy CARBOplatin AUC 6 / PACLitaxel ( WELLNESS PROGRAM MANAGER ) Start Date: 10/22/2021 INTERVAL HISTORY: Ms. Pavon presents today for evaluation in anticipation of her 2nd cycle of treatment with combination carboplatin and paclitaxel chemotherapy for her newly diagnosed endometrial cancer. She notes that she tolerated her 1st cycle overall well, with exception of nausea and 2 episodes of emesis during the 1st week following her 1st cycle of treatment. She also noted achiness in her right hip where shehas known bursitis, during 1st week following treatment. She did try Claritin, but did not start this until the pain was present. She also utilize Tylenol for management of this discomfort. She notes that her postsurgical pain is overall improving, however, she did have a fall roughly 1 week ago whereshe fell onto her buttocks and then on to her back. She notes she did hit her head with this fall. She was evaluated by her son, has a Health Care background, and was deemed to be okay. She was not evaluated further by a provider. She notes she has been feeling overall well, with exception of pain in her sacral area. She notes that this has been improving over the last couple of days. She has been using intermittent dosing of Tylenol and ice packs for management of this discomfort. She denies any obvious bruising. She also denies shooting pains in her legs or any issues with bowel/bladder control. She otherwise feels she has been eating and drinking without issue. She denies obvious neuropathy in her hands or feet. She has been able to advance from using her walker to just using a cane for ambulation. She notes she is able to maintain her activities of daily living without significant issue at this time. She does continue to have her present during her showers for safety reasons. REVIEW OF SYSTEMS Pertinent items are noted in HPI; all other review of systems were negative. OBJECTIVE VITAL SIGNS Vitals Blood Pressure: 118/79, Temperature: 36.2 ??C, Temp Source: Tympanic, Pulse Rate: 62, Resp Rate: 16, SpO2: 96 %, Height: 164.4 cm, Weight: 97.4 kg BP Readings from Last 1 Encounters: 11/12/21 118/79 Pulse Readings from Last 1 Encounters: 11/12/21 62 Temp Readings from Last 1 Encounters: 11/12/21 36.2 ??C (Tympanic) Rate your distress: 1 PHYSICAL EXAMINATION General: Alert and oriented, and in no acute distress. Able to ambulate on and off the exam table without difficulty. ECOG PS 1. Skin: Scalp with small, scattered pustules noted. No obvious area of bruising or abnormality on her scalp. Nontender to palpation in the area that was injured in her fall. Lymph: No palpable cervical, supraclavicular, axillary, and inguinal lymphadenopathy. Heart: Regular rate and rhythm. Lungs: Clear to auscultation bilaterally. Abdomen: Roughly 2-3 mm of granulation tissue noted under the abdominal fold at the incision site. There is no surrounding erythema or edema noted. She has noted scant bloody discharge, but there is noobvious signs of infection. Remainder of abdomen is soft, non-tender, and non-distended. Back: Mild tenderness to palpation in the lower lumbar/sacral region. No obvious bruising, erythema,or edema noted. Extremities: No pitting edema. No tenderness or erythema. Mental: Mood and affect appropriate for situation. DIAGNOSTICS: I reviewed the pertinent laboratory and diagnostic data. ASSESSMENT / PLAN #1 Malignant Neoplasm Of Uterus Endometrial (HCC) #2 Her 2 negative #3 Microsatellite stable Ms. Pavon presents today with her friend for evaluation in anticipation of her 2nd cycle of treatment with combination carboplatin and paclitaxel chemotherapy for her newly diagnosed serous endometrial cancer. Her labs were reviewed, and are notable for a mild anemia and thrombocytopenia. She understands that is likely related to her chemotherapy treatment, and it is reasonable to proceed with stable dosing at this time. She does understand that there could be potential delays moving forward if hercounts would continue to drop. We did spend time discussing need to be very careful while she is receiving chemotherapy treatment and on blood thinners, I did recommend that she would have any additional falls that she be evaluated immediately for safety purposes. In regard to her concerns of balance and ambulation, and discussed with her the option of meeting with our physical medicine rehab team toensure that we are supporting her as much as possible in this regard. She is receptive to this idea,and a consult was placed accordingly. In regard to her scalp rash, I did prescribe a topical clindamycin lotion for her to use twice a low-dose daily until this resolves. She understands that this is likely related to her loss with her chemotherapy, and will resolve over time. The in regard to myalgias /arthralgias, I did recommend that she initiate Claritin tomorrow managing this for the 1st week following treatment. In regard to nausea, we did discuss initiating use of oral antiemetics on day 2 andcontinuing to alternate these as needed throughout the 1st week to manage her nausea and vomiting. She verbalized understanding of this information, as no further questions or concerns at this time. Treatment plan was completed to reflect stable dosing through cycle 2. We will see her back in roughly 3 weeks for labs and evaluation prior to consideration of her 3rd cycle of treatment. She will reach out to us in the interval if she has any new or concerning symptoms prior to this time. PATIENT EDUCATION Ready to learn, no apparent learning barriers were identified; learning preferences include listening. Explained diagnosis and treatment plan; patient expressed understanding of the content. documented in this encounter Plan of Treatment Upcoming Encounters Date Type Specialty Care Team Description 05/02/2022 Appointment Radiation Oncology Dot Lopez M.D. [address] [place] [phone] 05/05/2022 Appointment Radiation Oncology Judy Mccall M.D. [address] [place] [phone] 05/06/2022 Appointment Radiation Oncology Judy Mccall M.D. [address] [place] [phone] 05/06/2022 Appointment Radiation Oncology Judy Mccall M.D. [address] [place] [phone] 05/07/2022 Appointment Radiation Oncology Judy Mccall M.D. [address] [place] [phone] 05/08/2022 Appointment Radiation Oncology Judy Mccall M.D. [address] [place] [phone] 05/22/2022 Clinical Communication Admitting/Central Scheduling 05/26/2022 Appointment Radiology Merlyn Rose APRN, C.NAye., M.S.N. [address] [place] [phone] 05/27/2022 Office Visit Oncology Merlyn Rose APRN, C.NLeopoldo, M.S.N. [address] [place] [phone] Scheduled Referrals Name Type Priority Associated Order Schedule Diagnoses Physical Medicine and Outpatient Routine Malignant Neoplasm Expected: Rehabilitation - Referral Of Uterus 11/18/2021, General consult Endometrial (HCC) Expires : (clinic) 02/11/2023 documented as of this encounter Visit Diagnoses Diagnosis Malignant Neoplasm Of Uterus Endometrial (HCC) documented in this encounter Care Teams Brick Pitcher Relationship Specialty Start Date End Date Elsewhere, Pcp PCP - General Internal Medicine 10/01/21 documented as of this encounter
--- OUTSIDE RECORDS SUMMARY | 2022-05-01 16:14 | XMS_ITS | Encounter Summary ---
:1950 Author Organization [facility] Address [address] [place] [address] Care Team Providers Name Role Phone Elsewhere, Pcp Primary Care Provider Unavailable Reason for Visit Episode Based Medications (Routine) - Closed Specialty Diagnoses / Procedures Referred By Contact Refer red To Contact Diagnoses Malignant Neoplasm Of Uterus Endometrial (HCC) Neutropenia Chemotherapy Induced (HCC) Merlyn Rose APRN, Rst Onc Trip Sumner, M.S.N. [address] [place] [address] [place] [phone] Referral ID Status Reason Start Date Expiration Date Visits Requ ested Visits Authorized [id number] Closed 10/15/2021 10/15/2022 99 99 Encounter Details Date Type Department Care Team Description 12/09/2021 Hospital Encounter Department of Merlyn Rose Neoplasm Of Uterus Endometrial (HCC); Laboratory Medicine [facility] Sam C.NLeopoldo, Pinky dong Chemotherapy Induced (HCC) in [place] M.S.NYi [place] [address] [place] [address] 300 [place] [phone] Social History Tobacco Use Types Packs/Day Years [...] at Date Recorded 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 200 [place] [phone] 05/05/2022 Appointment Radiation Oncology Judy Mccall M.D. 200 [place] [phone] 05/06/2022 Appointment Radiation Oncology Judy Mccall M.D. [address] [place] [phone] 05/06/2022 Appointment Radiation Oncology Judy Mccall M.D. [address] [place] [phone] 05/07/2022 Appointment Radiation Oncology Judy Mccall M.D. [address] [place] [phone] 05/08/2022 Appointment Radiation Oncology Judy Mccall M.D. [address] [place] [phone] 05/22/2022 Clinical Communication Admitting/Central Scheduling 05/26/2022 Appointment Radiology Merlyn Rose APRN, C.NLeopoldo, M.S.N. [address] [place] [phone] 05/27/2022 Office Visit Oncology Merlyn Rose APRN, C.N.P., M.S.N. [address] [place] [phone] documented as of this encounter Procedures Procedure Name Priority Date/Time Associated Diagnosis Comme nts CBC WITH DIFFERENTIAL, Routine 12/09/2021 10:35 Malignant Neop lasm Results for this B AM CDT Of Uterus procedure are i n Endometrial (HCC ) the results Neutropenia section. Chemotherapy Induced (HCC) COMPREHENSIVE Routine 12/09/2021 10:35 Malignant Neoplasm Resu lts for this METABOLIC PANEL, S/P AM CDT Of Uterus procedu re are in Endometrial (HCC ) the results Neutropenia section. Chemotherapy Induced (HCC) documented in this encounter Results Comprehensive Metabolic Panel (12/09/2021 10:35 AM CDT) P athologist Signature Potassium, P 4.1 3.6 - 5.2 12/09/2021 OWAT mmol/L 1:47 PM CDT Sodium, P 141 135 - 145 12/09/2021 OW[place] mmol/L 1:47 PM CDT Chloride, P 103 98 - 107 12/09/2021 OW[place] mmol/L 1:47 PM CDT Bicarbonate, P 28 22 - 29 12/09/2021 OW[place] mmol/L 1:47 PM CDT Anion Gap, P 10 7 - 15 12/09/2021 OWAT 1:47 PM CDT BUN (Blood Urea 10 6 - 21 12/09/2021 OWAT Nitrogen), P mg/dL 1:47 PM CDT Creatinine 0.73 0.59 - 12/09/2021 OWAT 1.04 mg/dL 1:47 PM CDT eGFR-Black/Afric >90 >=60 12/09/2021 OWAT an Canadian mL/min/BSA 1:47 PM CDT Comment: ----ADDITIONAL INFORMATION---- Estimated GFR calculated using the 2009 CKD_EPI creatinine equation. eGFR Non-Black/ 83 >=60 mL/min/BSA 1:47 PM CDT OWAT Comment: ----ADDITIONAL INFORMATION---- Estimated GFR calculated using the 2009 CKD_EPI creatinine equation. Calcium, Total, P 9.2 8.8 - 10.2 mg/dL 12/09/2021 1:47 PM CDT OWAT Glucose, P 92 70 - 140 mg/dL 12/09/2021 1:47 PM CDT O PEDRO Protein, Total, P 6.3 6.3 - 7.9 g/dL 12/09/2021 1:47 P M CDT OWAT Albumin, P 3.9 3.5 - 5.0 g/dL 12/09/2021 1:47 PM CDT O PEDRO Aspartate Aminotransferase 22 8 - 43 U/L 12/09/2021 1 :47 PM CDT OW[place] (AST), P Alkaline Phosphatase, P 79 35 - 104 U/L 12/09/2021 1: 47 PM CDT OW[facility] Alanine Aminotransferase (ALT), 11 7 - 45 U/L 022 1:47 PM CDT OWAT P Bilirubin, Total, P 0.2 <=1.2 mg/dL 12/09/2021 1:47 PM CDT [facility] Specimen Anatomical Collection Method Collection Time Receive d Time (Source) Location / / Volume Laterality Blood (Blood, 12/09/2021 10:35 12/09/2021 Venous) AM CDT 12:56 PM CDT Merlyn Rose APRN, C.N.P., M.S.N. LAB BLOOD ADD-ON Performing Organization Address City/State/ZIP Code Phon e Number [facility]- [address] [place] [address] [facility] [place] [address] System in [place] [address] [facility] (ABNORMAL) CBC with Differential, Blood (12/09/2021 10:35 AM CDT) [facility] Method Time Signature Hemoglobin 10.7 (L) 11.6 - 12/09/2021 FB60 15.0 g/dL 10:46 AM CDT Hematocrit 33.5 (L) 35.5 - 12/09/2021 FB60 44.9 % 10:46 AM CDT Erythrocytes 3.69 (L) 3.92 - 12/09/2021 FB60 5.13 10:46 AM CDT x10(12)/L MCV 90.8 78.2 - 12/09/2021 FB60 97.9 fL 10:46 AM CDT RBC Distrib Width 16.5 (H) 12.2 - 12/09/2021 FB60 16.1 % 10:46 AM CDT Platelet Count 283 157 - 371 12/09/2021 FB60 x10(9)/L 10:46 AM CDT Leukocytes 3.3 (L) 3.4 - 9.6 12/09/2021 FB60 x10(9)/L 10:46 AM CDT Neutrophils 1.13 (L) 1.56 - 12/09/2021 FB60 6.45 10:46 AM CDT x10(9)/L Lymphocytes 1.64 0.95 - 12/09/2021 FB60 3.07 10:46 AM CDT x10(9)/L Monocytes 0.48 0.26 - 12/09/2021 FB60 0.81 10:46 AM CDT x10(9)/L Eosinophils 0.04 0.03 - 12/09/2021 FB60 0.48 10:46 AM CDT x10(9)/L Basophils 0.02 0.01 - 12/09/2021 FB60 0.08 10:46 AM CDT x10(9)/L Specimen Anatomical Collection Method Collection Time Receive d Time (Source) Location / / Volume Laterality Blood (Blood, 12/09/2021 10:35 12/09/2021 Venous) AM CDT 10:35 AM CDT Merlyn Rose APRN, C.N.P., M.S.N. LAB BLOOD ADD-ON Performing Organization Address City/State/ZIP Code Phon e Number [address] [facility] [address] [place] [address] System in [address] documented in this encounter Visit Diagnoses Diagnosis Malignant Neoplasm Of Uterus Endometrial (HCC) Neutropenia Chemotherapy Induced (HCC) documented in this encounter Care Teams Manager Of Program Relationship Specialty Start Date End Date Elsewhere, Pcp PCP - General Internal Medicine 10/01/21 documented as of this encounter
--- OUTSIDE RECORDS SUMMARY | 2022-05-01 16:14 | XMS_ITS | Encounter Summary ---
:1950 Author Organization [facility] Address [address] [place] [address] Care Team Providers Name Role Phone Elsewhere, Pcp Primary Care Provider Unavailable Reason for Visit Reason Comments Genetic Test Results - Negative Encounter Details Date Type Department Care Team Description 11/19/2021 Documentation Department of Medical Herbert Joseph Genetic Test Results - Genetics in [address] [facility] Negative [place], [place] [address] [place] [phone] [place], [place] [phone] (Work) [phone] Social History Tobacco Use Types Packs/Day Years [...] or relatives? How often do you attend gnosticist or More than 4 times per year 03/17/2022 anglican services? 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 CHIEF COMPLAINT/PURPOSE Negative genetic test results. HISTORY OF PRESENT ILLNESS Ms. Pavon was seen in the Department of Clinical Genomics on 11/04/2021 due to her personal diagnosis of cancer. At that visit, she elected to pursue the Breast and Nib Assembler + Colorectal Cancers??panel through [facility]. These results were communicated to the patient via the patient onlineservices portal by our genetic counseling assistant credit manager. IMPRESSION/REPORT/PLAN Genetic testing included sequence analysis and gross deletion/duplication analysis of 31 genes associated with hereditary breast, tubing drier, and colorectal cancer. For a full list of genes included in the analysis, please refer to the genetic test report scanned into the patient's chart (document viewer tab). No pathogenic variants were detected by this testing. The fact that no pathogenic variants were detected in the genes for which Ms. Pavon was tested is reassuring. However, the fact that a pathogenic variant was not identified does not entirely eliminate the possibility that she and/or her family members have a hereditary susceptibility to cancer. Genetic testing has less than 100% sensitivity, meaning there is a small possibility that a pathogenic variant exists in one of the genes analyzed which cannot be identified by current testing methodology. Itis also possible that variants in cancer susceptibility genes which have not yet been discovered maybe contributing to her personal and/or family history of cancer. PERSONAL AND FAMILY SCREENING RECOMMENDATIONS Given that a hereditary susceptibility to cancer has not been identified by genetic testing, it is generally recommended to screen patients and their family members based on their personal and/or family histories of cancer. It is important for Ms. Pavon to continue to follow the treatment, screening and management recommendations as provided by her care team based on her personal and family history of cancer. Given the family history of endometrial cancer, other close female relatives of the family member who had endometrial cancer are encouraged to respond promptly to endometrial cancer symptoms (e.g. dysfunctional uterine bleeding). Screening for endometrial cancer, including transvaginal ultrasound and office endometrial sampling, or the possibility of prophylactic hysterectomy may be considered. ?? According to National Comprehensive Cancer Network guidelines, individuals who have a first degree relative with colorectal cancer at any age are advised to begin colonoscopies at age 40 or approximately ten years younger than the earliest age of colon cancer diagnosis (whichever is earliest). Colonoscopy should be repeated every 5 years or earlier based on colonoscopy findings. First degree relatives (children, siblings and parents) of her mother should start screening colonoscopies at age 39 basedon their relative's age at diagnosis. ?? Some combinations of affected first-,second-, and third-degree relatives may increase risk sufficiently to alter screening guidelines. Colonoscopy intervals should be further modified based on personaland family history as well as on individual preferences. Factors that modify age to begin screening and colonoscopy intervals include: age of individual undergoing screening; specifics of the family history, including number and age of onset of all affected relatives; size of family; completeness of the family history; participating in screening; and colonoscopy findings in family members. ?? The National Comprehensive Cancer Network recommends that women with a first- or second-degree relative diagnosed with breast cancer undergo breast cancer screening beginning 10 years younger than the earliest age of a breast cancer diagnosis in the family, but no later than age 40. Thus, women in this family who are first- or second-degree relatives of her paternal grandmother should begin breast cancer screening in their 20s. Screening may include breast self- examinations, clinical breast examinations, mammograms, and possibly breast MRIs, to be performed as directed by their physicians. These screening recommendations are based on national guidelines. Final screening recommendations should be deferred to the discretion of the managing physician. Other screening recommendations, such as those made by the [place] [employer], do remain appropriate. FOLLOW UP/RECOMMENDATIONS It is recommended that Ms. Pavon contact our clinic if there are changes to her personal or family history of cancer, as this information may change our genetic testing recommendations. Additionally, she is welcome to contact our clinic periodically, as our genetic testing options will likely improve over time. She is welcome to contact our clinic with any questions. documented in this encounter Plan of Treatment Upcoming Encounters Date Type Specialty Care Team Description 05/02/2022 Appointment Radiation Oncology Dot Lopez M.D. [address] [place] [phone] 05/05/2022 Appointment Radiation Oncology Judy Mccall M.D. [address] [place] [phone] 05/06/2022 Appointment Radiation Oncology Judy Mccall M.D. [address] [place] [phone] 05/06/2022 Appointment Radiation Oncology Judy Mccall M.D. [address] [place] [phone] 05/07/2022 Appointment Radiation Oncology Judy Mccall M.D. [address] [place] [phone] 05/08/2022 Appointment Radiation Oncology Judy Mccall M.D. [address] [place] [phone] 05/22/2022 Clinical Communication Admitting/Central Scheduling 05/26/2022 Appointment Radiology Merlyn Rose APRN, C.N.P., M.S.N. [address] [place] [phone] 05/27/2022 Office Visit Oncology Merlyn Rose APRN, C.N.P., M.S.N. [address] [place] [phone] documented as of this encounter Visit Diagnoses Not on filedocumented in this encounter Care Teams Powder Operator Relationship Specialty Start Date End Date Elsewhere, Pcp PCP - General Internal Medicine 10/01/21 documented as of this encounter
--- OUTSIDE RECORDS SUMMARY | 2022-05-01 16:14 | XMS_ITS | Encounter Summary ---
:1950 Author Organization [facility] Address [address] [place] [address] Care Team Providers Name Role Phone Elsewhere, Pcp Primary Care Provider Unavailable Reason for Visit Outpatient (Routine) - Closed Specialty Diagnoses / Procedures Referred By Contact Refer red To Contact [facility]st[facility], RDung [address] [place] [phone] Referral ID Status Reason Start Date Expiration Date Visits Requ ested Visits Authorized [id number] Closed 10/07/2021 10/07/2022 1 1 Encounter Details Date Type Department Care Team Description 12/04/2021 Office Visit Department of Minesh Levine, Follow Up Examination Obstetrics and P.A.-C. Status Post Surgery Gynecology in [address] [place] [address] (Primary Dx) [place], [place] [address] [place] [phone] [place], [place] [phone] (Work) [phone] Social History Tobacco Use Types Packs/Day Years [...] or relatives? How often do you attend christianity or More than 4 times per year 03/17/2022 anabaptist services? 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 - 12/04/2021 1:00 PM CDT SUBJECTIVE Nelda Pavon is a 71 y.o. year old patient who is 9 weeks status post robotic exploration, abdominal hysterectomy, bilateral salpingo-oophorectomy, right pelvic lymphadenectomy, left para-aortic lymphadenectomy and omentectomy with Dr. Pineda. Patient's surgery was performed setting with stage IIIC2 endometrial adenocarcinoma. Patient has started chemotherapy. Patient reports she had difficulty getting comfortable enough to sleep right after surgery. This hascontinued to improve. She did have an area along the inferior aspect of her incision that took longer to heal. She does feel like this is healed adequately now. She does report nausea and lack of appetite with chemotherapy. She is feeling well enough at other times. She does have chronic constipation.She has been taking senna-S daily. She has not noticed any vaginal bleeding. She has not noticed anylower extremity swelling. She feels that her bladder is working normally. She did sustain a fall after she began chemotherapy. She had a tongue laceration. She had sutures placed and was told that these would dissolve in a week. She can still feel the sutures. OBJECTIVE There were no vitals taken for this visit. General: No acute distress. Tongue appears to be healed. Two sutures were removed. One suture knot buried and unable to remove. Abdomen: Soft, non-tender, non-distended. Incision: Incision edges are well approximated and without any erythema or drainage. With Valsalva, no evidence of herniation. Pelvic: External genitalia appears normal. A regular sized speculum was used to visualize the vaginal vault. Vaginal incision appears to be healing well and is without discharge, granulation tissue or separation. Bimanual examination confirms an intact vaginal apex. Examination was assisted by Ronda. ASSESSMENT / PLAN Patient appears to be doing well overall. Plan Patient may slowly return back to normal lifting and exercise activities at this time. She may return to sexual activity if she desires. If she would experience any vaginal bleeding or concerns with sexual activity, she should let us know. Patient does not require any additional follow-up with Dr. Pineda' team. She will be followed by Medical Oncology following completion of her treatment. documented in this encounter Plan of Treatment Upcoming Encounters Date Type Specialty Care Team Description 05/02/2022 Appointment Radiation Oncology Dot Lopez M.D. 200 [place] [phone] 05/05/2022 Appointment Radiation Oncology Judy Mccall M.D. 200 [place] [phone] 05/06/2022 Appointment Radiation Oncology Judy Mccall M.D. [address] [place] [phone] 05/06/2022 Appointment Radiation Oncology Judy Mccall M.D. [address] [place] [phone] 05/07/2022 Appointment Radiation Oncology Judy Mccall M.D. [address] [place] [phone] 05/08/2022 Appointment Radiation Oncology Judy Mccall M.D. [address] [place] [phone] 05/22/2022 Clinical Communication Admitting/Central Scheduling 05/26/2022 Appointment Radiology Merlyn Rose APRN, C.N.P., M.S.N. [address] [place] [phone] 05/27/2022 Office Visit Oncology Merlyn Rose APRN C.N.P., M.S.N. [address] [place] [phone] documented as of this encounter Visit Diagnoses Diagnosis Follow Up Examination Status Post Surger y - Primary documented in this encounter Care Teams Cessation Systems Outreach Specialist Relationship Specialty Start Date End Date Elsewhere, Pcp PCP - General Internal Medicine 10/01/21 documented as of this encounter
--- OUTSIDE RECORDS SUMMARY | 2022-05-01 16:14 | XMS_ITS | Encounter Summary ---
:1950 Author Organization [facility] Address [address] [place] [address] Care Team Providers Name Role Phone Elsewhere, Pcp Primary Care Provider Unavailable Reason for Referral Outpatient (Routine) Specialty Diagnoses / Procedures Referred By Contact Refer red To Contact Oncology Merlyn Rose APRN, C.N.P., [facility] M.S.N. 200 [place] [phone] Referral ID Status Reason Start Date Expiration Date Visits Requ ested Visits Authorized Encounter Details Date Type Department Care Team Description 12/02/2021 Orders Only Department of Merlyn Rose Malignan t Neoplasm Of Uterus Endometrial (HCC) (Primary Dx); Oncology in [place] CALLENLeopoldo, Neutropenia Ch emotherapy Induced (HCC) [place], [place] M.S.N. 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 200 [place] [phone] 05/05/2022 Appointment Radiation Oncology Judy Mccall M.D. [address] [place] [phone] 05/06/2022 Appointment Radiation Oncology Judy Mccall M.D. [address] [place] [phone] 05/06/2022 Appointment Radiation Oncology Judy Mccall M.D. [address] [place] [phone] 05/07/2022 Appointment Radiation Oncology Judy Mccall M.D. [address] [place] [phone] 05/08/2022 Appointment Radiation Oncology Judy Mccall M.D. [address] [place] [phone] 05/22/2022 Clinical Communication Admitting/Central Scheduling 05/26/2022 Appointment Radiology Merlyn Rose APRN, C.NLeopoldo, M.S.N. [address] [place] [phone] 05/27/2022 Office Visit Oncology Merlyn Rose APRN C.N.P., M.S.N. [address] [place] [phone] Scheduled Referrals Name Type Priority Associated Diagnoses Order S [facility] Oncology office Outpatient Referral Routine Malignant Neoplasm Of Expected: visit (clinic) Uterus Endometrial 022, General; ADOBE FLEX DEVELOPER (HCC) Expires: Neutropenia 12/10/2022 Chemotherapy Induced (HCC) documented as of this encounter Results Comprehensive Metabolic Panel (12/09/2021 [...] CDT eGFR-Black/Afric >90 >=60 12/09/2021 OWAT an Citizen Of [place] mL/min/BSA 1:47 PM CDT Comment: ----ADDITIONAL INFORMATION---- [...] 0.2 <=1.2 mg/dL 12/09/2021 1:47 PM CDT OWAT Specimen Anatomical Collection Method Collection Time Receive d Time (Source) Location / / Volume Laterality Blood (Blood, 12/09/2021 10:35 12/09/2021 Venous) AM CDT 12:56 PM CDT Merlyn Rose APRN, C.N.P., M.S.N. LAB BLOOD ADD-ON Performing Organization Address City/State/ZIP Code Phon e Number [facility]- [address] [place] [address] [facility] [place] [address] System in [place] [address] (ABNORMAL) CBC with Differential, Blood (12/09/2021 10:35 AM CDT) [facility] Method Time Signature Hemoglobin 10.7 (L) 11.6 [...] 12/09/2021 Venous) AM CDT 10:35 AM CDT [place] Santillan APRNNAye., M.S.N. LAB BLOOD ADD-ON Performing Organization Address City/State/ZIP Code Phon e Number [facility]- [facility] [address] [place] [place] [id number] [place] [address] LAB [address] [place] [address] System in [place] [address] documented in this encounter Visit Diagnoses Diagnosis Malignant Neoplasm Of Uterus Endometrial (HCC) - Primary Neutropenia Chemotherapy Induced (HCC) documented in this encounter Care Teams Automation Control Technician Relationship Specialty Start Date End Date Elsewhere, Pcp PCP - General Internal Medicine 10/01/21 documented as of this encounter
--- OUTSIDE RECORDS SUMMARY | 2022-05-01 16:14 | XMS_ITS | Encounter Summary ---
:1950 Author Organization 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 [address] [place] [phone] 05/05/2022 Appointment Radiation Oncology Judy Mccall M.D. [address] [place] [place] [phone] 05/06/2022 Appointment Radiation Oncology Judy Mccall M.D. [address] [place] [address] [phone] 05/06/2022 Appointment Radiation Oncology Judy Mccall M.D. [address] [place] [phone] 05/07/2022 Appointment Radiation Oncology Judy Mccall M.D. [address] [place] [phone] 05/08/2022 Appointment Radiation Oncology Judy Mccall M.D. [address] [place] [phone] 05/22/2022 Clinical Communication Admitting/Central Scheduling 05/26/2022 Appointment Radiology Merlyn Rose APRN, C.N.P., M.S.N. [address] [place] [address] 05/27/2022 Office Visit Oncology Merlyn Rose APRN, C.N.P., M.S.N. [address] [place] [phone] documented as of this encounter Visit Diagnoses Not on filedocumented in this encounter Care Teams Cook Relief Relationship Specialty Start Date End Date Elsewhere, Pcp PCP - General Internal Medicine 10/01/21 documented as of this encounter
--- OUTSIDE RECORDS SUMMARY | 2022-05-01 16:14 | XMS_ITS | Encounter Summary ---
:1950 Author Organization [facility] Address [address] [place] [address] Care Team Providers Name Role Phone Elsewhere, Pcp Primary Care Provider Unavailable Reason for Visit Episode Based Medications (Routine) - Closed Specialty Diagnoses / Procedures Referred By Contact Refer red To Contact Diagnoses Malignant Neoplasm Of Uterus Endometrial (HCC) Neutropenia Chemotherapy Induced (HCC) Merlyn Rose APRN, Sandy Onc Trip Sumner, M.S.N [address] [place] [address] [place] [phone] Referral ID Status Reason Start Date Expiration Date Visits Requ ested Visits Authorized [id number] Closed 10/15/2021 10/15/2022 99 99 Encounter Details Date Type Department Care Team Description 11/12/2021 Infusion Department of Oncology Merlyn Rose, Malignant Neoplasm Of Uterus Endometrial (HCC) (Primary Dx); in [facility] C.N.P., Multiple Subs egmental Pulmonary Embolism Without Acute Cor Pulmonale (HCC) [place] M.S.N [address] [place] [address] [place] [phone] (Wo rk) Social History Tobacco Use Types [...] or relatives? How often do you attend sikh or More than 4 times per year 03/17/2022 zoroastrian services? 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 200 [place] [phone] 05/05/2022 Appointment Radiation Oncology Judy Mccall M.D. 200 [place] [phone] 05/06/2022 Appointment Radiation Oncology Judy Mccall M.D. [address] [place] [phone] 05/06/2022 Appointment Radiation Oncology Judy Mccall M.D. [address] [place] [phone] 05/07/2022 Appointment Radiation Oncology Judy Mccall M.D. [address] [place] [phone] 05/08/2022 Appointment Radiation Oncology Judy Mccall M.D. [address] [place] [phone] 05/22/2022 Clinical Communication Admitting/Central Scheduling 05/26/2022 Appointment Radiology Merlyn Rose APRN, C.N.P., M.S.N. [address] [place] [phone] 05/27/2022 Office Visit Oncology Merlyn Rose APRN, C.N.P., M.S.N. [address] [place] [phone] documented as of this encounter Visit Diagnoses Diagnosis Malignant Neoplasm Of Uterus Endometrial (HCC) - Primary Multiple Subsegmental Pulmonary Embolism Without Acute Cor Pulmonale (HCC) documented in this encounter Administered Medications Inactive Administered Medications - up to 3 most recent administrations Medication Order MAR Action Action Date Dose Rate Site CARBOplatin 770 mg in NaCl New Bag 11/12/2021 2:58 PM CDT 770 mg 704 mL/hr 0.9% 352 mL IVPB (PARAPLATIN) 770 mg (rounded from 774 mg, Target AUC = 6), intravenous, at 704 mL/hr, Administer over 30 Minutes, Once, On Thu11/12/21 at 1430, For 1 dose dexamethasone in NaCl 0.9% IVPB Bag 11/12/2021 11:10 AM CDT 12 mg 200 mL/hr mg (DECADRON) 12 mg, intravenous, at 200 mL/hr, Administer over 15 Minutes, Once, On Thu11/12/21 at 1100, For 1 dose, Give prior to PACLitaxel Refrigerate diphenhydrAMINE injection 50 mg (BENADRY L) Given 11/12/2021 11:05 AM CDT 50 mg 50 mg, intravenous, Once, On Thu11/12/21 at 1100, For 1 dose, Give prior to PACLitaxel. famotidine injection 20 mg (PEPCID) Given 11/12/2021 11:05 AM CDT 20 mg 20 mg, intravenous, Once, On Thu11/12/21 at 1100, For 1 dose, Give prior to PACLitaxel fosaprepitant in NaCl 0.9% IVPB New Bag 11/12/2021 11:10 AM CD T 150 mg 500 mL/hr 150 mg (EMEND) 150 mg, intravenous, at 500 mL/hr, Administer over 30 Minutes, Once, On Thu11/12/21 at 1100, For 1 dose, Incompatible with solutions containing divalent cations (calcium, magnesium) including lactated Ringer's solution. ondansetron in NaCl 0.9% IVPB 16 mg New Bag 11/12/2021 11:25 A M CDT 16 mg 232 mL/hr (ZOFRAN) 16 mg, intravenous, at 232 mL/hr, Administer over 15 Minutes, Once, On Thu11/12/21 at 1100, For 1 dose PACLitaxeL 360 mg in NaCl 0.9% New Bag 11/12/2021 11:55 AM CDT 360 mg 203 mL/hr (non-PVC) 608 mL IVPB (TAXOL) 360 mg (rounded from 362.25 mg = 175 mg/m2 ? 2.07 m2 Treatment Plan BSA from Measured weight), intravenous, at 203 mL/hr, Administer over 3 Hours, Once, On Thu11/12/21 at 1130, For 1 dose, Administer via 0.22 micron in-line filter. documented in this encounter Care Teams Shaper And Presser Relationship Specialty Start Date End Date Elsewhere, Pcp PCP - General Internal Medicine 10/01/21 documented as of this encounter
--- OUTSIDE RECORDS SUMMARY | 2022-05-01 16:14 | XMS_ITS | Encounter Summary ---
:1950 Author Organization [facility] Address [address] [place] [address] Care Team Providers Name Role Phone Elsewhere, Pcp Primary Care Provider Unavailable Reason for Referral Occupational Therapy (Routine) - Authorized Specialty Diagnoses / Procedures Referred By Contact Refer red To Contact Diagnoses Malignant Neoplasm Of Uterus Endometrial (HCC) Asthenia Neoplastic Malignant Related Fatigue Repeated Falls Abnormal Gait Non Orthopedic Neuropathy Castillo Francois M.D. [facility] Procedures OT Evaluate and treat [address] [place] [phone] Referral ID Status Reason Start Date Expiration Date Visits V isits Requested Authorized [id number] Authorized 11/22/2021 11/22/2022 99 99 Physical Therapy (Routine) - Authorized Specialty Diagnoses / Procedures Referred By Contact Refer red To Contact Diagnoses Malignant Neoplasm Of Uterus Endometrial (HCC) Asthenia Neoplastic Malignant Related Fatigue Repeated Falls Abnormal Gait Non Orthopedic Neuropathy Castillo Francois M.D. [facility] Procedures PT Evaluate and treat [address] [place] [phone] Referral ID Status Reason Start Date Expiration Date Visits V isits Requested Authorized [id number] Authorized 11/22/2021 11/22/2022 99 99 Outpatient (Routine) - Authorized Specialty Diagnoses / Referred By Contact Referred To Contact Procedures Physical [facility] [place] [address] Referral ID Status Reason Start Date Expiration Date Visits V isits Requested Authorized [id number] Authorized 11/22/2021 11/22/2022 1 1 Scheduling Instructions Cancer rehab follow-up. Please schedule when she is in [place] seeing her oncologist, if this is not available; a video visit is okay Reason for Visit Outpatient (Routine) - Closed Specialty Diagnoses / Procedures Referred By Contact Refer red To Contact Physical Medicine and Diagnoses Malignant Neoplasm Of Uterus Endometrial (HCC) [facility] M.S.N. [address] [place] [address] Referral ID Status Reason Start Date Expiration Date Visits Requ ested Visits Authorized [id number] Closed 11/12/2021 11/12/2022 1 1 Encounter Details Date Type Department Care Team Description 11/22/2021 Telemedicine Department of Physical Saskia Francois (Primary Dx); Medicine and Brady Chong Repeated Falls; Rehabilitation in [address] [facility] Abnormal Gait Non Orthopedic; [place], [place] Neoplastic Malignant Related Fatigue; [address] [facility] [phone] Neuropathy; [place], [place] [phone] Malignant Neoplasm Of Uterus Endometrial (HCC) Social History Tobacco Use Types Packs/Day Years [...] or relatives? How often do you attend uatsdin or More than 4 times per year 03/17/2022 jain services? 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 - 11/22/2021 10:00 AM CDT SUBJECTIVE Consult conducted via real-time audio/video technology by Laila?? MD Alessandro in [facility] to the patient in the patient's home. REQUESTING PROVIDER Merlyn Rose APRN, C.N.P., M.S.N. REASON FOR CONSULT Asthenia, gait abnormality HISTORY OF PRESENT ILLNESS Nelda Pavon a 70 y.o. 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 It was noted that she tolerated her 1st cycle fairly well with the exception of nausea x2 episodes of emesis. She also noted having some achiness in the right hip where she has known bursitis during the 1st week of treatment, along with some pain in her sacral area. She reports this pain has been improving over the last couple of days, but she still has some discomfort where she uses acetaminophen and ice packs. She denied having any neuropathy in the hands/feet, where she did report she is able to advance fromusing her walker to just a cane for ambulation; along with being able to maintain her ADLs without any significant issues at this time. She was reported to keep her near her during certain activities such as using a shower for safety concerns. As she was concerned about her balance and ambulation, she was open about meeting with the [facility] for further evaluation/assessment of her current deficits. She now presents to the [facility] via real-time audio/video visit for further evaluation/management of her asthenia and gait abnormality. Currently, she was seen in clinic this morning via real-time audio/video visit. She reports she has had some ongoing issues with fatigue and falls since her last clinic appointment. She reports she has had a recent fall where she injured her tongue requiring x3 stitches. She did have a brief loss of consciousness where she likely fell on hit her chin injuring her tongue, but she did not fully fall to the ground as her son was able to catch her. This was her 2nd fall this year, where she previously felt due to slipping on the ground. She now reports she can get very lightheaded and feels as if she is going to faint, where she has tosit down at least 3 times per day due to lightheadedness. She does report having some lightheadedness before secondary to hypotension, but now this has worsened since she has been on chemotherapy. As she feels she is very weak and lightheaded, she has been using a walker/cane as she is scared to fall. She is not sure if her legs are weak, but she feels her symptoms are related to hypotension as she has not been ingesting much fluid/food as she loses her appetite following chemotherapy. Following her chemotherapy sessions she reports she gets very anorexic where she only drinks around 24-30 oz a day of fluid. She now is concerned about her current oral intake due to her current chemotherapy which is causing weakness/fatigue. She denies any tingling/burning in the legs, but does have some numbness in her index fingers and thumbs which she reports is from neuropathy. She denies any pain from these symptoms at this time. She denies requiring any help in regards to her ADLs, where she uses a cane when navigating steps and a walker when on flat surfaces. As she now has this ongoing weakness/fatigue since being on chemotherapy likely due to dehydration, she is interested in further options for hydration along with continued therapies in order to help rebuild her strength while she is on current treatment. The following portions of the patient's history were reviewed and updated as appropriate: allergies,current medications, family history, medical history, social history, surgical history and problem list. REVIEW OF SYSTEMS I have briefly reviewed the Review of Systems as noted on the Health history form. I am only responding to those symptoms which are directly relevant to the specific indication for my consultation. I recommend that the patient follow up with their primary or referring provider to pursue any other symptoms which may be of concern. OBJECTIVE There were no vitals taken for this visit. PHYSICAL EXAM LIMITED THIS WAS A REAL-TIME AUDIO/VIDEO VISIT. General/Constitutional: Alert. Well-developed, well-nourished individual in no acute distress. Mental Status/Psychiatric: Appropriate mood and affect. Grossly oriented with coherent speech and thought processing. Cardiovascular: Well perfused. Respiratory: Breathing is comfortable and regular. No dyspnea noted during examination. Eyes: No redness appreciated. ENT/Mouth/Thyroid: No craniofacial deformities or asymmetry. DIAGNOSTICS EXAM: CT CHEST ANGIOGRAM AND PULMONARY ARTERIES WITH IV CONTRAST Including 3D image post-processing. COMPARISON: None FINDINGS: VASCULAR FINDINGS: Positive for segmental emboli in the right upper and middle lobes pulmonary arteries [series 5 image99 and 144]. No definite left-sided emboli. No evidence of right heart strain. Mild vascular calcification including coronary artery calcification. Mild cardiomegaly. Small pericardial effusion. ADDITIONAL FINDINGS: Atelectasis in the lower lobes and right upper lobe. Small amount of high attenuation material in the stomach most likely ingested material. Hypertrophic changes thoracic spine. ?? IMPRESSION: 1. Positive for right-sided segmental acute pulmonary emboli. 2. Atelectasis in the lung bases. 3. Cardiomegaly with small pericardial effusion. ASSESSMENT / PLAN 70 y.o. female from [place], [place] w/ PMH of right-sided segmental pulmonary emboli on 10/02/21 on apixaban, anxiety, depression, CORTES on CPAP, asthma, hearing loss, GERD, and morbid obesity; and an oncological history of stage IIIC2 serous endometrial cancer s/p robotic abdominal hysterectomy/bilateral salpingo- oophorectomy/pelvic and periaortic lymphadenectomy/omentectomy on 10/01/21 and currently on carboplatin/paclitaxel(10/22/21-); who presents today for evaluation of asthenia and gait abnormality ASSESSMENT: #1 Asthenia #2 Repeated Falls #3 Abnormal Gait Non Orthopedic #4 Neoplastic Malignant Related Fatigue #5 Neuropathy #6 Malignant Neoplasm Of Uterus Endometrial (HCC) It was a pleasure seeing Mrs. Pavon in clinic this morning in regards to her asthenia and gait abnormality. At this time she is suffering from a decline in function likely due to her cancer and subsequent treatment, where she has been experiencing some recurrent falls likely secondary to anorexia/decreased hydration as result of her current treatment. The case was discussed with Mrelyn Rose APRN, PHYSICIAN SURGEON, MSN; where her team will reach out to her about potential initiation IV hydration during her chemotherapy treatment plan in order to help with her current decreased fluid intake/fatigue. I will also refer her to PT/OT to work on helping with asthenia, proximal weakness, gait abnormality, energy conservation, and cancer related fatigue. Will plan on follow-up in clinic following initiation of her therapies and IV hydration, where she can be re-evaluated and further treatment can be started as indicated based on her therapeutic response to the above plan and clinical presentation. EDUCATION We discussed the diagnosis and treatment plan in detail. The patient expressed understanding of the content. No apparent learning barriers were identified; learning preferences include listening. A total of 25 min was spent in [id number] time, greater than 50% of encounter spent in counseling and coordination of care. Signed by: Wayne Francois M.D. 11/24/2021 7:39 AM CDT documented in this encounter Plan of Treatment Upcoming Encounters Date Type Specialty Care Team Description 05/02/2022 Appointment Radiation Oncology Dot Lopez M.D. [address] [place] [phone] 05/05/2022 Appointment Radiation Oncology Judy Mccall M.D. [address] [place] [phone] 05/06/2022 Appointment Radiation Oncology Judy Mccall M.D. [address] [place] [phone] 05/06/2022 Appointment Radiation Oncology Judy Mccall M.D. [address] [place] [phone] 05/07/2022 Appointment Radiation Oncology Judy Mccall M.D. [address] [place] [phone] 05/08/2022 Appointment Radiation Oncology Judy Mccall M.D. [address] [place] [phone] 05/22/2022 Clinical Communication Admitting/Central Scheduling 05/26/2022 Appointment Radiology Merlyn Rose APRN, C.N.PYi, M.S.N. [address] [place] [phone] 05/27/2022 Office Visit Oncology Merlyn Rose APRN C.N.P., M.S.N. [address] [place] [phone] Scheduled Referrals Name Type Priority Associated Order Schedule Diagnoses Physical Medicine and Outpatient Referral Routine Expected: Rehabilitation office 2021, visit (clinic) Expires: 02/21/2023 documented as of this encounter Visit Diagnoses Diagnosis Asthenia - Primary Repeated Falls Abnormal Gait Non Orthopedic Neoplastic Malignant Related Fatigue Neuropathy Malignant Neoplasm Of Uterus Endometrial (HCC) documented in this encounter Care Teams Speech And Language Clinician Relationship Specialty Start Date End Date Elsewhere, Pcp PCP - General Internal Medicine 10/01/21 documented as of this encounter
--- OUTSIDE RECORDS SUMMARY | 2022-05-01 16:14 | XMS_ITS | Encounter Summary ---
:1950 Author Organization [facility] Address [address] [place] [address] Care Team Providers Name Role Phone Elsewhere, Pcp Primary Care Provider Unavailable Reason for Visit Reason Comments Pre-visit Intake Encounter Details Date Type Department Care Team Description 11/11/2021 Clinical Communication Department of Merlyn Rose re-[facility] [place] [phone] Social History Tobacco Use Types Packs/Day Years [...] Date Recorded Female 07/20/2021 9: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 [address] [place] [phone] 05/05/2022 Appointment Radiation Oncology Judy Mccall M.D. [address] [place] [address] [phone] 05/06/2022 Appointment Radiation Oncology Judy Mccall M.D. [address] [place] [address] [phone] 05/06/2022 Appointment Radiation Oncology Judy Mccall M.D. [address] [place] [address] [phone] 05/07/2022 Appointment Radiation Oncology Judy Mccall M.D. [address] [place] [address] [phone] 05/08/2022 Appointment Radiation Oncology Judy Mccall M.D. [address] [place] [phone] 05/22/2022 Clinical Communication Admitting/Central Scheduling 05/26/2022 Appointment Radiology Merlyn Rose APRN, C.NLeopoldo, M.S.N. [address] [place] [phone] 05/27/2022 Office Visit Oncology Merlyn Rose APRN, C.NLeopoldo, M.S.N. [address] [place] [phone] documented as of this encounter Visit Diagnoses Not on filedocumented in this encounter Care Teams Supervisor Sign Shop Relationship Specialty Start Date End Date Elsewhere, Pcp PCP - General Internal Medicine 10/01/21 documented as of this encounter
--- OUTSIDE RECORDS SUMMARY | 2022-05-01 16:14 | XMS_ITS | Encounter Summary ---
:[address] [facility] Address [address] [place] [address] Care Team Providers Name Role Phone Elsewhere, Pcp Primary Care Provider Unavailable Encounter Details Date Type Department Care Team Description 12/02/2021 Orders Only [facility], [place] Burak CALLE, M.S.N. [address] [facility] [address] [place] [address] [place], [place] [phone] (Wo rk) Social History Tobacco Use Types [...] or relatives? How often do you attend jewish or More than 4 times per year 03/17/2022 rastafarian services? 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 [address] [place] [address] [phone] 05/05/2022 Appointment Radiation Oncology Judy Mccall M.D. [address] [place] [address] [phone] 05/06/2022 Appointment Radiation Oncology Judy Mccall M.D. [address] [place] [address] [phone] 05/06/2022 Appointment Radiation Oncology Judy Mccall M.D. [address] [place] [address] [phone] 05/07/2022 Appointment Radiation Oncology Judy Mccall M.D. [address] [place] [address] [phone] 05/08/2022 Appointment Radiation Oncology Judy Mccall M.D. [address] [place] [phone] 05/22/2022 Clinical Communication Admitting/Central Scheduling 05/26/2022 Appointment Radiology Merlyn Rose APRN, C.N.P., M.S.N. [address] [place] [phone] 05/27/2022 Office Visit Oncology Merlyn Rose APRN, C.N.P., M.S.N. [address] [place] [phone] documented as of this encounter Visit Diagnoses Not on filedocumented in this encounter Care Teams Medical Administrative Assistant Relationship Specialty Start Date End Date Elsewhere, Pcp PCP - General Internal Medicine 10/01/21 documented as of this encounter
--- OUTSIDE RECORDS SUMMARY | 2022-05-01 16:14 | XMS_ITS | Encounter Summary ---
:1950 Author Organization [facility] Address [address] [place] [address] Care Team Providers Name Role Phone Elsewhere, Pcp Primary Care Provider Unavailable Reason for Visit Reason Comments [facility] [place] Disability Parking Pass Encounter Details Date Type Department Care Team Description 12/04/2021 Clinical Communication Department of [place] [facility] [place] [facility] Pass [address] [place] [phone] [phone] Social History Tobacco Use Types Packs/Day Years [...] More than 4 times per year 03/17/2022 advent services? 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 - 12/05/2021 10:34 AM CDT Forms given to provider for signature documented in this encounter Plan of Treatment Upcoming Encounters Date Type Specialty Care Team Description 05/02/2022 Appointment Radiation Oncology Dot Lopez M.D. [address] [place] [phone] 05/05/2022 Appointment Radiation Oncology Judy Mccall M.D. [address] [place] [address] [phone] 05/06/2022 Appointment Radiation Oncology Judy Mccall M.D. [address] [place] [phone] 05/06/2022 Appointment Radiation Oncology Judy Mccall M.D. [address] [place] [phone] 05/07/2022 Appointment Radiation Oncology Judy Mccall M.D. [address] [place] [phone] 05/08/2022 Appointment Radiation Oncology Judy Mccall M.D. [address] [place] [phone] 05/22/2022 Clinical Communication Admitting/Central Scheduling 05/26/2022 Appointment Radiology Merlyn Rose APRN, C.N.Anahi., M.S.N. [address] [place] [address] [phone] 05/27/2022 Office Visit Oncology Merlyn Rose APRN, C.N.P., M.S.N. [address] [place] [address] [phone] documented as of this encounter Visit Diagnoses Not on filedocumented in this encounter Care Teams Industrial Locomotive Operator Relationship Specialty Start Date End Date Elsewhere, Pcp PCP - General Internal Medicine 10/01/21 documented as of this encounter
--- OUTSIDE RECORDS SUMMARY | 2022-05-01 16:14 | XMS_ITS | Encounter Summary ---
:1950 Author Organization [facility] Address [address] [place] [address] Care Team Providers Name Role Phone Elsewhere, Pcp Primary Care Provider Unavailable Encounter Details Date Type Department Care Team Description 11/22/2021 Clinical Communication Department of Gertrude Rose , Oncology in [facility], [place] M.S.N. [address] [facility] [address] [place] [phone] Social History Tobacco Use Types Packs/Day Years [...] or relatives? How often do you attend hoahaoism or More than 4 times per year 03/17/2022 jain services? 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 - 11/22/2021 5:25 PM CDT Addended by: GERTRUDE ROSE on: 11/22/2021 05:25 PM Modules accepted: Orders Telephone Encounter - Sirisha Mancuso M.S.NYi, R.N. - 11/22/2021 1:55 PM CDT SUBJECTIVE CHIEF COMPLAINT / REASON FOR CALL Hydration and Falls Information Discussed Patient states she has fallen again. She notes she hit her jaw during the fall and required 3 stitches in her tongue. She states today she feels well. She notes her oral hydration has been reduced due to the lack of desire to eat and mild nausea. She states her nausea is managed by the medications shehas, but feels she could use extra hydration during the weeks. Of note, patient is very concerned about falling in the future. She would like to submit for a handicap placard. Additionally, encouraged patient to try and eat very small meals throughout the day; focusing on foods that are high in protein. Encouraged patient to eat foods containing additional liquid such as watermelon and berries. Recommended patient refrain from things that can be dehydrating such as high amounts of caffeine. PLAN Patient would like to schedule her first hydration in [place] this coming thursday either morningor afternoon works for her. I will notify the provider to submit these orders. Encouraged patient togo to local ER if she experiences prolonged periods of dizziness or falls again. Instructed patient to go to the [email or web address][employer] and print the handicap form. Once she has completed her section she can upload the document and we will sign and send off to [facility]. Patient acknowledged she has not been eating well the last week. She will try her best to follow therecommendations we talked about today. Disposition/Recommendation: self-care is appropriate at this time, patient encouraged to call back with questions Information/Education: patient/caller able to teach back Caller agreeable to plan of care: yes The following references were used: provider Gertrude Rose APRN, GRAIN UNLOADER documented in this encounter Plan of Treatment Upcoming Encounters Date Type Specialty Care Team Description 05/02/2022 Appointment Radiation Oncology Dot Lopez M.D. [address] [place] [phone] 05/05/2022 Appointment Radiation Oncology Judy Mccall M.D. [address] [place] [address] [phone] 05/06/2022 Appointment Radiation Oncology Judy Mccall M.D. [address] [place] [address] [phone] 05/06/2022 Appointment Radiation Oncology Judy Mccall M.D. [address] [place] [phone] 05/07/2022 Appointment Radiation Oncology Judy Mccall M.D. [address] [place] [phone] 05/08/2022 Appointment Radiation Oncology Judy Mccall M.D. [address] [place] [phone] 05/22/2022 Clinical Communication Admitting/Central Scheduling 05/26/2022 Appointment Radiology Gertrude Rose APRN, C.N.P., M.S.N. [address] [place] [phone] 05/27/2022 Office Visit Oncology Gertrude Rose APRN, C.N.P., M.S.N. [address] [place] [phone] documented as of this encounter Visit Diagnoses Diagnosis Dehydration - Primary documented in this encounter Care Teams Meat Sales And Storage Manager Relationship Specialty Start Date End Date Elsewhere, Pcp PCP - General Internal Medicine 10/01/21 documented as of this encounter
--- OUTSIDE RECORDS SUMMARY | 2022-05-01 16:14 | XMS_ITS | Encounter Summary ---
:[address] [facility] Address [address] [place] [address] Care Team Providers Name Role Phone Elsewhere, Pcp Primary Care Provider Unavailable Encounter Details Date Type Department Care Team Description 11/29/2021 Clinical Communication Visit Review in [place], [place] [address] [place], [place] [phone] Social History Tobacco Use Types Packs/Day Years [...] More than 4 times per year 03/17/2022 holiness services? Do you belong to any clubs [...] at Date Recorded Female 07/20/2021 9:20 PM VARITYPIST documented as of this encounter Plan of Treatment Upcoming Encounters Date Type Specialty Care Team Description 05/02/2022 Appointment Radiation Oncology Dot Lopez M.D. [address] [place] [address] [phone] 05/05/2022 Appointment Radiation Oncology Judy Mccall M.D. [address] [place] [address] [phone] 05/06/2022 Appointment Radiation Oncology Judy Mccall M.D. [address] [place] [address] [phone] 05/06/2022 Appointment Radiation Oncology Judy Mccall M.D. [address] [place] [phone] 05/07/2022 Appointment Radiation Oncology Judy Mccall M.D. [address] [place] [phone] 05/08/2022 Appointment Radiation Oncology Judy Mccall M.D. [address] [place] [address] [phone] 05/22/2022 Clinical Communication Admitting/Central Scheduling 05/26/2022 Appointment Radiology Merlyn Rose APRN, C.N.P., M.S.N. [address] [place] [address] 05/27/2022 Office Visit Oncology Merlyn Rose APRN, C.N.P., M.S.N. [address] [place] [phone] documented as of this encounter Visit Diagnoses Not on filedocumented in this encounter Care Teams Stage Rigger Relationship Specialty Start Date End Date Elsewhere, Pcp PCP - General Internal Medicine 10/01/21 documented as of this encounter
--- OUTSIDE RECORDS SUMMARY | 2022-05-01 16:14 | XMS_ITS | Encounter Summary ---
:1950 Author Organization [facility] Address [address] [place] [address] Care Team Providers Name Role Phone Elsewhere, Pcp Primary Care Provider Unavailable Encounter Details Date Type Department Care Team Description 11/29/2021 Clinical Communication Department of Merlyn Rose , [facility] [place], [place] M.S.N. [address] [facility] [address] [place] [phone] Social History Tobacco Use Types Packs/Day Years [...] at Date Recorded Female 07/20/2021 9:20 PM THERAPIST RESPIRATORY documented as of this encounter Plan of Treatment Upcoming Encounters Date Type Specialty Care Team Description 05/02/2022 Appointment Radiation Oncology Dot Lopez M.D. [address] [place] [address] [phone] 05/05/2022 Appointment Radiation Oncology Judy Mccall M.D. [address] [place] [address] [phone] 05/06/2022 Appointment Radiation Oncology Judy Mccall M.D. [address] [place] [address] [phone] 05/06/2022 Appointment Radiation Oncology Judy Mccall M.D. [address] [place] [address] [phone] 05/07/2022 Appointment Radiation Oncology Judy Mccall M.D. [address] [place] [address] [phone] 05/08/2022 Appointment Radiation Oncology Judy Mccall M.D. [address] [place] [phone] 05/22/2022 Clinical Communication Admitting/Central Scheduling 05/26/2022 Appointment Radiology Merlyn Rose APRN, Ellen.N.P., M.S.N. [address] [place] [phone] 05/27/2022 Office Visit Oncology Merlyn Rose APRN, C.N.P., M.S.N. [address] [place] [phone] documented as of this encounter Visit Diagnoses Not on filedocumented in this encounter Care Teams Demolitionist Relationship Specialty Start Date End Date Elsewhere, Pcp PCP - General Internal Medicine 10/01/21 documented as of this encounter
--- OUTSIDE RECORDS SUMMARY | 2022-05-01 16:15 | XMS_ITS | Encounter Summary ---
:1950 Author Organization [facility] Address [address] [place] [address] Care Team Providers Name Role Phone Elsewhere, Pcp Primary Care Provider Unavailable Encounter Details Date Type Department Care Team Description 10/08/2021 Orders Only Pharmacy Prior Auth Simon Montes [phone] Social History Tobacco Use Types Packs/Day Years [...] or relatives? How often do you attend jain or More than 4 times per year 03/17/2022 confucianism services? 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 [address] [place] [phone] 05/05/2022 Appointment Radiation Oncology Judy Mccall M.D. [address] [place] [address] [phone] 05/06/2022 Appointment Radiation Oncology Judy Mccall M.D. [address] [place] [phone] 05/06/2022 Appointment Radiation Oncology Judy Mccall M.D. [address] [place] [phone] 05/07/2022 Appointment Radiation Oncology Judy Mccall M.D. [address] [place] [phone] 05/08/2022 Appointment Radiation Oncology Judy Mccall M.D. [address] [place] [phone] 05/22/2022 Clinical Communication Admitting/Central Scheduling 05/26/2022 Appointment Radiology Merlyn Rose APRN, C.N.P., M.S.N. [address] [place] [phone] 05/27/2022 Office Visit Oncology Merlyn Rose APRN, C.N.P., M.S.N. [address] [place] [address] documented as of this encounter Visit Diagnoses Not on filedocumented in this encounter Care Teams Deputy Juvenile Officer Relationship Specialty Start Date End Date Elsewhere, Pcp PCP - General Internal Medicine 10/01/21 documented as of this encounter
--- OUTSIDE RECORDS SUMMARY | 2022-05-01 16:15 | XMS_ITS | Encounter Summary ---
:1950 Author Organization [facility] Address [address] [place] [address] Care Team Providers Name Role Phone Elsewhere, Pcp Primary Care Provider Unavailable Reason for Visit Episode Based Medications (Routine) - Closed Specialty Diagnoses / Procedures Referred By Contact Refer red To Contact Diagnoses Malignant Neoplasm Of Uterus Endometrial (HCC) Neutropenia Chemotherapy Induced (HCC) Merlyn oRse APRN, Sandy Onc Trip Sumner, M.S.N [address] [place] [address] [place] [address] [phone] Referral ID Status Reason Start Date Expiration Date Visits Requ ested Visits Authorized [id number] Closed 10/15/2021 10/15/2022 99 99 Encounter Details Date Type Department Care Team Description 10/22/2021 Infusion Department of Oncology Merlyn Rose, Malignant Neoplasm Of Uterus Endometrial (HCC) (Primary Dx); in [facility] C.N.P., Multiple Subs egmental Pulmonary Embolism Without Acute Cor Pulmonale (HCC) [place] M.S.N [address] [place] [address] [place] [phone] (Wo rk) Social History Tobacco Use Types [...] or relatives? How often do you attend baptism or More than 4 times per year 03/17/2022 jewish services? Do you belong to any clubs or Yes 03/17/2022 organizations such as baptism groups, unions, fraternal or athletic groups, or [...] at Date Recorded Female 07/20/2021 9:20 PM FINISH REMOVER documented as of this encounter Last Filed Vital Signs Vital Sign Reading Time Taken Comments Blood Pressure 121/59 10/22/2021 1:26 PM CDT Pulse 67 10/22/2021 1:26 PM CDT Temperature - - Respiratory Rate 18 10/22/2021 1:26 PM CDT Oxygen Saturation - - Inhaled Oxygen Concentration - - Weight - - Height - - Body Mass Index - - documented in this encounter Plan of Treatment Upcoming Encounters Date Type Specialty Care Team Description 05/02/2022 Appointment Radiation Oncology Dot Lopez M.D. 200 [place] [phone] 05/05/2022 Appointment Radiation Oncology Judy Mccall M.D. [address] [place] [address] [phone] 05/06/2022 Appointment Radiation Oncology Judy Mccall M.D. [address] [place] [address] [phone] 05/06/2022 Appointment Radiation Oncology Judy Mccall M.D. [address] [place] [address] [phone] 05/07/2022 Appointment Radiation Oncology Judy Mccall M.D. [address] [place] [address] [phone] 05/08/2022 Appointment Radiation Oncology Judy Mccall M.D. [address] [place] [phone] 05/22/2022 Clinical Communication Admitting/Central Scheduling 05/26/2022 Appointment Radiology Merlyn Rose APRN, C.N.P., M.S.N. [address] [place] [address] [phone] 05/27/2022 Office Visit Oncology Merlyn Rose APRN C.N.P., M.S.N. [address] [place] [phone] documented as of this encounter Visit Diagnoses Diagnosis Malignant Neoplasm Of Uterus Endometrial (HCC) - Primary Multiple Subsegmental Pulmonary Embolism Without Acute Cor Pulmonale (HCC) documented in this encounter Administered Medications Inactive Administered Medications - up to 3 most recent administrations Medication Order MAR Action Action Date Dose Rate Site CARBOplatin 720 mg in NaCl New Bag 10/22/2021 2:23 PM CDT 720 mg 694 mL/hr 0.9% 347 mL IVPB (PARAPLATIN) 720 mg (rounded from 720.6 mg, Target AUC = 6), intravenous, at 694 mL/hr, Administer over 30 Minutes, Once, On Thu10/22/21 at 1315, For 1 dose dexamethasone in NaCl 0.9% IVPB 12 New Bag 10/22/2021 10:03 AM CDT 12 mg 200 mL/hr mg (DECADRON) 12 mg, intravenous, at 200 mL/hr, Administer over 15 Minutes, Once, On Thu10/22/21 at 0945, For 1 dose, Give prior to PACLitaxel Refrigerate diphenhydrAMINE injection 50 mg (BENADRY L) Given 10/22/2021 9:59 AM CDT 50 mg 50 mg, intravenous, Once, On Thu10/22/21 at 0945, For 1 dose, Give prior to PACLitaxel. famotidine injection 20 mg (PEPCID) Given 10/22/2021 9:58 AM CDT 20 mg 20 mg, intravenous, Once, On Thu10/22/21 at 0945, For 1 dose, Give prior to PACLitaxel fosaprepitant in NaCl 0.9% IVPB 150 New Bag 10/22/2021 1:46 PM CDT 150 mg 500 mL/hr mg (EMEND) 150 mg, intravenous, at 500 mL/hr, Administer over 30 Minutes, Once, On Thu10/22/21 at 0945, For 1 dose, Incompatible with solutions containing divalent cations (calcium, magnesium) including lactated Ringer's solution. ondansetron in NaCl 0.9% IVPB 16 mg New Bag 10/22/2021 10:19 A M CDT 16 mg 232 mL/hr (ZOFRAN) 16 mg, intravenous, at 232 mL/hr, Administer over 15 Minutes, Once, On Thu10/22/21 at 0945, For 1 dose PACLitaxeL 360 mg in NaCl 0.9% New Bag 10/22/2021 10:42 AM CDT 360 mg 203 mL/hr (non-PVC) 608 mL IVPB (TAXOL) 360 mg (rounded from 362.25 mg = 175 mg/m2 ? 2.07 m2 Treatment Plan BSA from Measured weight), intravenous, at 203 mL/hr, Administer over 3 Hours, Once, On Thu10/22/21 at 1015, For 1 dose, Administer via 0.22 micron in-line filter. documented in this encounter Care Teams Real Estate Developer Relationship Specialty Start Date End Date Elsewhere, Pcp PCP - General Internal Medicine 10/01/21 documented as of this encounter
--- OUTSIDE RECORDS SUMMARY | 2022-05-01 16:15 | XMS_ITS | Encounter Summary ---
:1950 Author Organization [facility] Address [address] [place] [address] Care Team Providers Name Role Phone Elsewhere, Pcp Primary Care Provider Unavailable Reason for Visit Reason Comments [facility] : CK Encounter Details Date Type Department Care Team Description 11/04/2021 Clinical Communication Department of [facility] Bhavya Madden : GIOVANI Genetics in Merlyn Schroeder M[facility] [address] [facility] [address] [place] [phone] Social History Tobacco Use Types Packs/Day Years [...] More than 4 times per year 03/17/2022 scientologist services? 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 Forwarded to the provider for review. Telephone Encounter - Julius Joseph - 11/14/2021 8:05 AM CDT Sample received by [employer] on 11/11, testing in progress Telephone Encounter - Julius Joseph - 11/04/2021 3:28 PM CDT Date: 11/04/21 Lab: [facility] Test: Custom Panel Sample: Lab to mail a saliva kit to the pt and Mail Order has been scheduled and checked in. Provider: Merlyn Madden [facility] [place]: Government documented in this encounter Plan of Treatment Upcoming Encounters Date Type Specialty Care Team Description 05/02/2022 Appointment Radiation Oncology Dot Lopez M.D. [address] [place] [phone] 05/05/2022 Appointment Radiation Oncology Judy Mccall M.D. [address] [place] [phone] 05/06/2022 Appointment Radiation Oncology Judy Mccall M.D. [address] [place] [address] [phone] 05/06/2022 Appointment Radiation Oncology Judy Mccall M.D. [address] [place] [address] [phone] 05/07/2022 Appointment Radiation Oncology Judy Mccall M.D. [address] [place] [address] [phone] 05/08/2022 Appointment Radiation Oncology Judy Mccall M.D. [address] [place] [address] [phone] 05/22/2022 Clinical Communication Admitting/Central Scheduling 05/26/2022 Appointment Radiology Merlyn Rose APRN, C.N.P., M.S.N. [address] [place] [address] [phone] 05/27/2022 Office Visit Oncology Merlyn Rose APRN C.N.P., M.S.N. [address] [place] [address] [phone] documented as of this encounter Visit Diagnoses Not on filedocumented in this encounter Care Teams Guidance And Control System Engineer Relationship Specialty Start Date End Date Elsewhere, Pcp PCP - General Internal Medicine 10/01/21 documented as of this encounter
--- OUTSIDE RECORDS SUMMARY | 2022-05-01 16:15 | XMS_ITS | Encounter Summary ---
:1950 Author Organization [facility] Address [address] [place] [address] Care Team Providers Name Role Phone Elsewhere, Pcp Primary Care Provider Unavailable Reason for Referral Outpatient (Routine) - Closed Specialty Diagnoses / Procedures Referred By Contact Refer red To Contact Radiation Oncology Diagnoses Malignant Neoplasm Of Uterus (HCC) Martinez Rock Coupland Lori Abreu, M.P.H. [address] [place] [address] Referral ID Status Reason Start Date Expiration Date Visits Requ ested Visits Authorized [id number] Closed 10/02/2021 10/02/2022 1 1 Reason for Visit Outpatient (Routine) - Closed Specialty Diagnoses / Procedures Referred By Contact Refer red To Contact Radiation Oncology Diagnoses Malignant Neoplasm Of Uterus (HCC) Martinez Rock [facility] Brady, M.P.H. [address] [place] [address] Referral ID Status Reason Start Date Expiration Date Visits Requ ested Visits Authorized [id number] Closed 10/02/2021 10/02/2022 1 1 Encounter Details Date Type Department Care Team Description 10/21/2021 Hospital Encounter Department of Ann Mcduffie Neoplasm Of Uterus Endometrial (HCC) (Primary Dx); Radiation Oncology Brady Alvarenga Malignant Neoplasm Of Uterus (HCC) in [place], [place] [address] [place] [phone] Social History Tobacco Use Types Packs/Day Years [...] or relatives? How often do you attend latter day or More than 4 times per year 03/17/2022 latter day services? Do you belong to any clubs or Yes 03/17/2022 organizations such as latter day groups, unions, fraternal or athletic groups, or [...] at Date Recorded Female 07/20/2021 9:20 PM BROKE MAN documented as of this encounter Last Filed Vital Signs Vital Sign Reading Time Taken Comments Blood Pressure - - Pulse - - Temperature - - Respiratory Rate - - Oxygen Saturation - - Inhaled Oxygen Concentration - - Weight 97.8 kg (215 lb 9.8 oz) 10/21/2021 10:27 AM CDT Height - - Body Mass Index 36.59 10/01/2021 6:36 AM BROKE MAN documented in this encounter Medications at Time [...] for wheezing. albuterol 90 Inhale 2 puffs every 0 08/22/2019 mcg/actuation inhaler 4 (four) hours as needed for wheezing. calcium carbonate Take 1 tablet by 0 (CALCIUM 600 ORAL) mouth 2 (two) times a day. cetirizine (ZyrTEC) 10 Take 1 tablet by 0 010 mg tablet mouth daily. cholecalciferol, vitamin Take 1 tablet by 0 D3, (VITAMIN D3 ORAL) mouth every morning. CRANBERRY ORAL Take 1 tablet by 0 mouth every morning. ferrous sulfate 325 mg Take 325 mg by mouth 0 (65 mg iron) tablet every other day. fluticasone propionate Administer 2 sprays 0 03/2021 (FLONASE) 50 into nostril(s) 2 mcg/actuation nasal (two) times a day. spray ipratropium-albuteroL Inhale 3 mL every 6 0 07/30 (DUONEB) 0.5-2.5 mg/3 mL (six) hours as nebulizer solution needed for wheezing or shortness of breath. mometasone 0.033 Administer 2 sprays 84 mL 11 09/16/2021 %-ipratropium 0.02 into each nostril 2 %-diphenhydramine 0.033 (two) times a day. % nasal spray Shake very well prior to each use. montelukast (SINGULAIR) Take 1 tablet by 0 2020 10 mg tablet mouth at bedtime. omeprazole (PriLOSEC) 20 Take 20 mg by mouth [address] capsule every morning before breakfast. ondansetron (ZOFRAN) 4 Take 1 tablet (4 mg 20 tablet 0 01/2022 mg tablet total) by mouth every 8 (eight) hours as needed for nausea or vomiting. sennosides-docusate Take 1 tablet by 0 10/07/2021 sodium (SENOKOT-S) mouth 2 (two) times 8.6-50 mg per tablet a day as needed for constipation. sertraline (ZOLOFT) 100 Take 100 mg by mouth 0 mg tablet every morning. SODIUM CHLORIDE NASAL Administer into [...] by mouth tabletIndications: Acute every 4 (four) hours Pain as needed for moderate pain or score 4-6 of 10 or severe pain or score 7-10 of 10 (Administer if pain is unrelieved by acetaminophen.) Indication: Acute Pain. documented as of this encounter Consult Notes Ann Mcduffie M.D. - 10/21/2021 10:30 AM CDT RADIATION ONCOLOGY CONSULTATION SUBJECTIVE REQUESTING PROVIDER Martinez Rock M.D., M.P.H. REASON FOR CONSULT The primary encounter diagnosis was Malignant Neoplasm Of Uterus Endometrial (HCC). A diagnosis of Malignant Neoplasm Of Uterus (HCC) was also pertinent to this visit. STAGING: FIGO IIIC2 Serous Endometrial Cancer HISTORY OF PRESENT ILLNESS The patient is Nelda Pavon a 70 y.o. female who presents today to discuss radiotherapy for FIGOIIIC2 serous endometrial cancer Post-operatively, she was found to have a right sided segmental acute PE. She has been started on Eliquis, and is tolerating it well. She has met with medical oncology and recommended for initiation ofcarboplatin AUC 6 and paclitaxel. HER- 2 testing is pending for consideration of addition of TH. Today, she reports that she is feeling well. She did develop some left lower leg swelling after surgery, which underwent investigation without obvious evidence of DVT. This has improved with a compression stocking and elevation. She denies any vaginal discharge or bleeding. She does report some intermittent pelvic pain. She denies any issues with moving her bowels or bladder. ONCOLOGIC HISTORY: 1. April 2022: Patient developed postmenopausal bleeding. She subsequently underwent [...] carcinoma. Peritoneal fluid was aytpical, favor reactive/degenerative. REVIEW OF SYSTEMS Review of systems as noted in HPI. History of Inflammatory Bowel Disease none Medications, Allergies, Pertinent Past Medical History, Past Surgical History, Social History, and Family History were reviewed. PRIOR RADIOTHERAPY: None OBJECTIVE Wt 97.8 kg BMI 36.59 kg/m?? PHYSICAL EXAM ECOG 1 General: Pleasant, in no acute distress. Head: Normocephalic, atraumatic Eyes: Sclera anicteric, extraocular movements intact. Lungs: Normal work of breathing on room air Skin: Warm, dry. Under her abdominal fold, there is a small area of granulation tissue without evidence of erythema, purulence, or bleeding. Neuro: Alert and oriented. Mental: Appropriate mood and affect ASSESSMENT AND PLAN Miss Pavon is a 70 y.o. female with FIGO IIIC2 serous endometrial cancer who comes to the Departmentof Radiation Oncology for a discussion of radiation treatment. It was a pleasure to meet with Mrs. Pavon and her friend today regarding the role of radiotherapy inthe management of her disease. We reviewed the pertinent clinical, radiographic, pathologic featuresof her disease. We spent some time discussing the results of her pathology from her surgery. She has substantially high risk disease and therefore, after a conversation with Medical Oncology, we have decided to move forward with her 6 cycles of adjuvant chemotherapy upfront followed by repeat imaging. Pending that she does not develop any evidence of distant metastasis, we discussed the recommendation would be for 5weeks external beam radiotherapy. Despite her final pathology, given her initial imaging, I would recommend a 2 fraction intracavitary brachytherapy boost to the vaginal cuff. We discussed the logistics of radiation simulation, planning, and daily treatment. We discussed techniques to minimize toxicities to non-targeted tissues including daily bladder filling, rectal balloon. We also reviewed the acute toxicities associated with treatment including, but not limited to fatigue, acute bowel and bladder changes, nausea. The risk of late toxicities and expected long-term oncologic outcomes were also discussed. Specifically, we did discuss the risk of vaginal dryness and stenosis after delivery of external beam radiotherapy and brachytherapy boost. She is not currently sexually active. We discussed the need for vaginal dilator use in the future in order to have routine pelvicexams. After the above discussion, Mrs. Pavon indicated that she is appreciative of our consultation here today. She would like to receive her external beam radiotherapy in [place]. We discussed that we would plan for her CT simulation to be done at our institution with delivery of the external beam component in [place]. We did discuss that the brachytherapy boost would need to be delivered at our [facility]. Regarding her skin exam today, this does appear to be granulation tissue and no clear evidence of infection. We did discuss that she should continue to keep the area clean and dry. Given that it is close, would be reasonable to use antibiotic cream, which she is already doing. I did encourage her to show this to her medical oncology team in a approximately 1 week or sooner if there are clear changes. Our departmental contact information was provided and he was encouraged to contact the Department ofRadiation Oncology with further questions or concerns. We will plan to see her back after repeat imaging and 6 cycles of chemotherapy. Ann Mcduffie MD Department of Radiation Oncology Pager [phone] documented in this encounter Plan of Treatment Upcoming Encounters Date Type Specialty Care Team Description 05/02/2022 Appointment Radiation Oncology Dot Lopez M.D. [address] [place] [phone] 05/05/2022 Appointment Radiation Oncology Judy Mccall M.D. [address] [place] [phone] 05/06/2022 Appointment Radiation Oncology Judy Mccall M.D. [address] [place] [phone] 05/06/2022 Appointment Radiation Oncology Judy Mccall M.D. [address] [place] [phone] 05/07/2022 Appointment Radiation Oncology Judy Mccall M.D. [address] [place] [phone] 05/08/2022 Appointment Radiation Oncology Jduy Mccall M.D. [address] [place] [phone] 05/22/2022 Clinical Communication Admitting/Central Scheduling 05/26/2022 Appointment Radiology Merlyn Rose APRN, C.N.P., M.S.N. [address] [place] [phone] 05/27/2022 Office Visit Oncology Merlyn Rose APRN CYiNYiP., M.S.N. [address] [place] [address] Scheduled Referrals Name Type Priority Associated Order Schedule Diagnoses Radiation Oncology Outpatient Referral Routine Malignant Neopl asm Once for 1 - Electrical Controls Engineer consult Of Uterus (HCC) Occurrences starting (clinic) 10/21/2021 unti l 10/21/2021 documented as of this encounter Visit Diagnoses Diagnosis Malignant Neoplasm Of Uterus Endometrial (HCC) - Primary Malignant Neoplasm Of Uterus (HCC) documented in this encounter Care Teams Black Pickler Relationship Specialty Start Date End Date Elsewhere, Pcp PCP - General Internal Medicine 10/01/21 documented as of this encounter
--- OUTSIDE RECORDS SUMMARY | 2022-05-01 16:15 | XMS_ITS | Encounter Summary ---
:1950 Author Organization [facility] Address [address] [place] [address] Care Team Providers Name Role Phone Elsewhere, Pcp Primary Care Provider Unavailable Reason for Referral Medication Prior Authorization - Authorized Specialty Diagnoses / Procedures Referred By Contact Refer red To Contact Diagnoses Malignant Neoplasm Of Uterus Endometrial (HCC) Apolonia Vital APRN, C.N.P. [address] [place] [phone] Referral ID Status Reason Start Date Expiration Date Visits V isits Requested Authorized [id number] Authorized 10/08/2022 1 1 Reason for Visit Reason Comments Patient Education Episode Based Medications (Routine) - Closed Specialty Diagnoses / Procedures Referred By Contact Refer red To Contact Diagnoses Malignant Neoplasm Of Uterus Endometrial (HCC) Neutropenia Chemotherapy Induced (HCC) Merlyn Rose APRN, Rst Onc Trip McdermottN.Abdirashid, M.S.N. 200 [facility] [place] [phone] Referral ID Status Reason Start Date Expiration Date Visits Requ ested Visits Authorized [id number] Closed 10/15/2021 10/15/2022 99 99 Encounter Details Date Type Department Care Team Description 10/22/2021 Education Department of Oncology Ellen Rose APRN C.N.P., M.S.N. [address] [place] [address] Malignant Neoplasm Of in [place], Kiana Hou M.S.N., R.N. [address] [place] [phone] Uterus Endometrial [place] (HCC) (Primary Dx) [address] [place] [phone] Social History Tobacco Use Types Packs/Day Years [...] or relatives? How often do you attend orthodox or More than 4 times per year 03/17/2022 jehovah's witness services? 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 documented as of this encounter Last Filed Vital Signs Vital Sign Reading Time Taken Comments Blood Pressure 96/66 10/22/2021 8:03 AM CDT Pulse 67 10/22/2021 8:03 AM CDT Temperature 36 ??C (96.8 ??F) 10/22/2021 8:03 AM CDT Respiratory Rate 14 10/22/2021 8:03 AM CDT Oxygen Saturation 93% 10/22/2021 8:03 AM CDT Inhaled Oxygen Concentration - - Weight 94.4 kg (208 lb 1.8 oz) 10/22/2021 8:03 AM CDT Height - - Body Mass Index 35.31 10/01/2021 6:36 AM FRINGING MACHINE OPERATOR documented in this encounter Plan of Treatment Upcoming Encounters Date Type Specialty Care Team Description 05/02/2022 Appointment Radiation Oncology Dot Lopez M.D. [address] [place] [address] [phone] 05/05/2022 Appointment Radiation Oncology Judy Mccall M.D. [address] [place] [address] [phone] 05/06/2022 Appointment Radiation Oncology Judy Mccall M.D. [address] [place] [phone] 05/06/2022 Appointment Radiation Oncology Judy Mccall M.D. [address] [place] [phone] 05/07/2022 Appointment Radiation Oncology Judy Mccall M.D. [address] [place] [address] [phone] 05/08/2022 Appointment Radiation Oncology Judy Mccall M.D. [address] [place] [phone] 05/22/2022 Clinical Communication Admitting/Central Scheduling 05/26/2022 Appointment Radiology Merlyn Rose APRN, C.NLeopoldo, M.S.N. [address] [place] [phone] 05/27/2022 Office Visit Oncology Merlyn Rose APRN, C.NLeopoldo, M.S.N. [address] [place] [phone] documented as of this encounter Visit Diagnoses Diagnosis Malignant Neoplasm Of Uterus Endometrial (HCC) - Primary documented in this encounter Care Teams It Sales Consultant Relationship Specialty Start Date End Date Elsewhere, Pcp PCP - General Internal Medicine 10/01/21 documented as of this encounter
--- OUTSIDE RECORDS SUMMARY | 2022-05-01 16:15 | XMS_ITS | Encounter Summary ---
:1950 Author Organization [facility] Address [address] [place] [address] Care Team Providers Name Role Phone Elsewhere, Pcp Primary Care Provider Unavailable Encounter Details Date Type Department Care Team Description 10/09/2021 Clinical Communication Department of Jessy Pineda Obstetrics and Brady Crenshaw Gynecology in [address] [place] [address] [place] [phone] [place], [place] [phone] (Work) [phone] Social History Tobacco Use Types Packs/Day Years [...] at Date Recorded Female 07/20/2021 9:20 PM VIDEOGRAPHER documented as of this encounter Miscellaneous Notes Telephone Encounter - Bailee Rocha R.N. - 10/10/2021 10:31 AM CST Patient sent a portal message saying she will contact her primary doctor for an appointment. OGRAPHER Telephone Encounter - Bailee Rocha R.N. - 10/10/2021 9:29 AM CST Ultrasound is in CareEverywhere: FINDINGS: The left common femoral, superficial femoral, deep femoral, popliteal, posterior tibial, and greatersaphenous veins are fully compressible normal waveforms. The contralateral right common femoral veinis also compressible with normal waveform. No masses evident. IMPRESSION: Normal ultrasound of the left lower extremity veins. OGRAPHER Telephone Encounter - Flor Connolly R.N. - 10/09/2021 4:09 PM CST Sugar returned my call and I spoke with her and her sister Mandi. They report that Sugar has developed new redness, warmth, and swelling in her left foot today. Guerrero reports that Sugar's toes are especially swollen and red, as well as hot to the touch. Her left ankle is also noticeably more swollen than the ankle on her right leg. Sugar has some new tingling in her left foot as well. I explained that I discussed Sugar's symptoms with the nurse practitioner on our team, Sheila Torres. She agreed that since Sugar did not have any lower extremity DVT detected on her 10/03 doppler study, andhas developed these new symptoms that are classic symptoms of a DVT, we would recommend that she be seen in her local ED for evaluation. Sugar expressed understanding and will present to the [place] ED this evening. It looks like this is an [facility] ED and we discussed that they should be able to see her recent [place] medical records via Care everywhere. I reviewed that it will be important for them to know her recent history of surgery, postoperative PE treated with Eliquis, and lower extremity Dopplers on 10/03 that did not find any DVT. We briefly reviewed her postoperative recovery and she seems to be doing quite well. She reports she is eating and drinking without difficulty. Her pain is well controlled. She is having some loose bowel movements but no severe diarrhea. I provided her with the phone number for our office for daytime and after hours, in case the local ED providers wish to contact Dr. Pineda's team. OGRAPHER Telephone Encounter - Flor Connolly R.N. - 10/09/2021 3:43 PM CST I attempted to call Sugar back and reached a generic voicemail. I left a message with our office phone number and also indicated that I would send her a message via her patient portal. Sounds like she should be seen by her local urgent care or ED today to rule out DVT. OGRAPHER Telephone Encounter - Yaritza Dior - 10/09/2021 3:26 PM CST Sugar Pavon calls today stating her left foot is swollen. It is warm to the touch and there is some redness on the bottom of her foot. It is swollen up to her ankle and includes her toes. She wonders ifshe needs to be seen. OGRAPHER documented in this encounter Plan of Treatment Upcoming Encounters Date Type Specialty Care Team Description 05/02/2022 Appointment Radiation Oncology Dot Lopez M.D. [address] [place] [phone] 05/05/2022 Appointment Radiation Oncology Judy Mccall M.D. [address] [place] [phone] 05/06/2022 Appointment Radiation Oncology Judy Mccall M.D. [address] [place] [phone] 05/06/2022 Appointment Radiation Oncology Judy Mccall M.D. [address] [place] [phone] 05/07/2022 Appointment Radiation Oncology Judy Mccall M.D. [address] [place] [phone] 05/08/2022 Appointment Radiation Oncology Judy Mccall M.D. [address] [place] [phone] 05/22/2022 Clinical Communication Admitting/Central Scheduling 05/26/2022 Appointment Radiology Merlyn Rose APRN, Ellen.N.P., M.S.N. [address] [place] [phone] 05/27/2022 Office Visit Oncology Merlyn Rose APRN, C.NAye., M.S.N. [address] [place] [address] [phone] documented as of this encounter Visit Diagnoses Not on filedocumented in this encounter Care Teams Protection Agent Relationship Specialty Start Date End Date Elsewhere, Pcp PCP - General Internal Medicine 10/01/21 documented as of this encounter
--- OUTSIDE RECORDS SUMMARY | 2022-05-01 16:15 | XMS_ITS | Encounter Summary ---
:1950 Author Organization [facility] Address [address] [place] [address] Care Team Providers Name Role Phone Elsewhere, Pcp Primary Care Provider Unavailable Reason for Visit Reason Comments Questions of Hair Loss and Headaches Encounter Details Date Type Department Care Team Description 11/08/2021 Clinical Communication Department of Apolonia Vital of Hair Oncology in [place], SILK SCREEN FRAME ASSEMBLER, Loss and Headac hes [facility].[address] [address] [address] [facility] [address] [place] [phone] Social History Tobacco Use Types Packs/Day Years [...] at Date Recorded Female 07/20/2021 9: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 [address] [place] [phone] 05/05/2022 Appointment Radiation Oncology Judy Mccall M.D. [address] [place] [phone] 05/06/2022 Appointment Radiation Oncology Judy Mccall M.D. [address] [place] [address] [phone] 05/06/2022 Appointment Radiation Oncology Judy Mccall M.D. [address] [place] [address] [phone] 05/07/2022 Appointment Radiation Oncology Judy Mccall M.D. [address] [place] [address] [phone] 05/08/2022 Appointment Radiation Oncology Judy Mccall M.D. [address] [place] [phone] 05/22/2022 Clinical Communication Admitting/Central Scheduling 05/26/2022 Appointment Radiology Merlyn Rose APRN, C.NLeopoldo, M.S.N. [address] [place] [phone] 05/27/2022 Office Visit Oncology Merlyn Rose APRN, C.NLeopoldo, M.S.N. [address] [place] [phone] documented as of this encounter Visit Diagnoses Not on filedocumented in this encounter Care Teams Site Acquisition Manager Relationship Specialty Start Date End Date Elsewhere, Pcp PCP - General Internal Medicine 10/01/21 documented as of this encounter
--- OUTSIDE RECORDS SUMMARY | 2022-05-01 16:15 | XMS_ITS | Encounter Summary ---
:1950 Author Organization [facility] Address [address] [place] [address] Care Team Providers Name Role Phone Elsewhere, Pcp Primary Care Provider Unavailable Reason for Referral Specialty Diagnoses / Procedures Referred By Contact Refer red To Contact [facility]ST [facility] [address] [place] [phone] Referral ID Status Reason Start Date Expiration Date Visits Requ ested Visits Authorized Reason for Visit Reason Comments Nurse teach Encounter Details Date Type Department Care Team Description 10/15/2021 Clinical Communication Department of Kiana Ash Nurse teach Oncology in D, M.S.N., R.N. 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 - 10/15/2021 11:11 AM CDT Addended by: KIANA ASH on: 10/15/2021 11:11 AM Modules accepted: Orders Telephone Encounter - Kiana Ash, M.S.N., R.N. - 10/15/2021 11:11 AM CDT Intro class ordered documented in this encounter Plan of Treatment Upcoming Encounters Date Type Specialty Care Team Description 05/02/2022 Appointment Radiation Oncology Dot Lopez M.D. [address] [place] [phone] 05/05/2022 Appointment Radiation Oncology Judy Mccall M.D. [address] [place] [address] [phone] 05/06/2022 Appointment Radiation Oncology Judy Mccall M.D. [address] [place] [address] [phone] 05/06/2022 Appointment Radiation Oncology Judy Mccall M.D. [address] [place] [phone] 05/07/2022 Appointment Radiation Oncology Judy Mccall M.D. [address] [place] [phone] 05/08/2022 Appointment Radiation Oncology Judy Mccall M.D. [address] [place] [phone] 05/22/2022 Clinical Communication Admitting/Central Scheduling 05/26/2022 Appointment Radiology Merlyn Rose APRN, C.N.P., M.S.N. [address] [place] [phone] 05/27/2022 Office Visit Oncology Merlyn Rose APRN C.N.P., M.S.N. [address] [place] [phone] Scheduled Referrals Name Type Priority Associated Order Schedule Diagnoses Patient Education - Outpatient Referral Routine Malignant Neop lasm Expected: Introduction to Of Uterus (HCC) 2 cancer care (clinic) (Approx imate), Expires: 01/15/2023 documented as of this encounter Visit Diagnoses Diagnosis Malignant Neoplasm Of Uterus (HCC) - Anais dieter documented in this encounter Care Teams Brand Strategist Relationship Specialty Start Date End Date Elsewhere, Pcp PCP - General Internal Medicine 10/01/21 documented as of this encounter
--- OUTSIDE RECORDS SUMMARY | 2022-05-01 16:15 | XMS_ITS | Encounter Summary ---
:1950 Author Organization [facility] Address [address] [place] [address] Care Team Providers Name Role Phone Elsewhere, Pcp Primary Care Provider Unavailable Encounter Details Date Type Department Care Team Description 10/10/2021 Clinical Communication Department of Hayley Koenig Obstetrics and Brady Watkins, M.S. Gynecology in [address] [place] [address] [place] [phone] [place], [place] [phone] (Work) [phone] Social History Tobacco Use Types Packs/Day Years [...] at Date Recorded Female 07/20/2021 9:20 PM BENCH ASSEMBLER OPERATOR documented as of this encounter Miscellaneous Notes Telephone Encounter - Hayley Koenig M.D., M.S. - 10/10/2021 7:50 PM BENCH ASSEMBLER OPERATOR Contacted the patient with final pathology results. Patient is scheduled to be seen by medical oncology and radiation oncology in coming weeks. All of patient's questions were answered. Hayley Koenig M.D., M.S. H ASSEMBLER OPERATOR documented in this encounter Plan of Treatment Upcoming Encounters Date Type Specialty Care Team Description 05/02/2022 Appointment Radiation Oncology Dot Lopez M.D. [address] [place] [phone] 05/05/2022 Appointment Radiation Oncology Judy Mccall M.D. [address] [place] [phone] 05/06/2022 Appointment Radiation Oncology Judy Mccall M.D. [address] [place] [phone] 05/06/2022 Appointment Radiation Oncology Judy Mccall M.D. [address] [place] [phone] 05/07/2022 Appointment Radiation Oncology Judy Mccall M.D. [address] [place] [phone] 05/08/2022 Appointment Radiation Oncology Judy Mccall M.D. [address] [place] [phone] 05/22/2022 Clinical Communication Admitting/Central Scheduling 05/26/2022 Appointment Radiology Merlyn Rose APRN, C.N.P., M.S.N. [address] [place] [phone] 05/27/2022 Office Visit Oncology Merlyn Rose APRN C.N.P., M.S.N. [address] [place] [phone] documented as of this encounter Visit Diagnoses Diagnosis Malignant Neoplasm Of Uterus Endometrial (HCC) - Primary documented in this encounter Care Teams Display Carver Relationship Specialty Start Date End Date Elsewhere, Pcp PCP - General Internal Medicine 10/01/21 documented as of this encounter
--- OUTSIDE RECORDS SUMMARY | 2022-05-01 16:15 | XMS_ITS | Encounter Summary ---
:1950 Author Organization [facility] Address [address] [place] [address] Care Team Providers Name Role Phone Elsewhere, Pcp Primary Care Provider Unavailable Encounter Details Date Type Department Care Team Description 10/09/2021 Orders Only [facility], [place] C.N.P. [address] [facility] [address] [place] [address] [place], [place] [phone] (Wo rk) Social History Tobacco Use Types [...] at Date Recorded Female 07/20/2021 9:20 PM NOTCHING PRESS OPERATOR documented as of this encounter Plan of Treatment Upcoming Encounters Date Type Specialty Care Team Description 05/02/2022 Appointment Radiation Oncology Dot Lopez M.D. [address] [place] [address] [phone] 05/05/2022 Appointment Radiation Oncology Judy Mccall M.D. [address] [place] [address] [phone] 05/06/2022 Appointment Radiation Oncology Judy Mccall M.D. [address] [place] [address] [phone] 05/06/2022 Appointment Radiation Oncology Judy Mccall M.D. [address] [place] [phone] 05/07/2022 Appointment Radiation Oncology Judy Mccall M.D. [address] [place] [address] [phone] 05/08/2022 Appointment Radiation Oncology Judy Mccall M.D. [address] [place] [address] [phone] 05/22/2022 Clinical Communication Admitting/Central Scheduling 05/26/2022 Appointment Radiology Merlyn Rose APRN, C.NLeopoldo, M.S.N. [address] [place] [phone] 05/27/2022 Office Visit Oncology Merlyn Rose APRN, C.NLeopoldo, M.S.N. [address] [place] [phone] documented as of this encounter Visit Diagnoses Not on filedocumented in this encounter Care Teams Chairperson Anesthesiology Relationship Specialty Start Date End Date Elsewhere, Pcp PCP - General Internal Medicine 10/01/21 documented as of this encounter
--- OUTSIDE RECORDS SUMMARY | 2022-05-01 16:15 | XMS_ITS | Encounter Summary ---
:1950 Author Organization [facility] Address [address] [place] [address] Care Team Providers Name Role Phone Elsewhere, Pcp Primary Care Provider Unavailable Encounter Details Date Type Department Care Team Description 10/18/2021 Education Department of Patient Maira Baez M.D. [address] [place] [phone] Malignant Neoplasm Of Education in [place], Giovanni, Jasmin Crenshaw M.S., R.N. 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 [address] [place] [phone] 05/05/2022 Appointment Radiation Oncology Judy Mccall M.D. [address] [place] [address] [phone] 05/06/2022 Appointment Radiation Oncology Judy Mccall M.D. [address] [place] [address] [phone] 05/06/2022 Appointment Radiation Oncology Judy Mccall M.D. [address] [place] [phone] 05/07/2022 Appointment Radiation Oncology Judy Mccall M.D. [address] [place] [phone] 05/08/2022 Appointment Radiation Oncology Judy Mccall M.D. [address] [place] [phone] 05/22/2022 Clinical Communication Admitting/Central Scheduling 05/26/2022 Appointment Radiology Merlyn Rose APRN, C.NLeopoldo, M.S.N. [address] [place] [phone] 05/27/2022 Office Visit Oncology Merlyn Rose APRN, C.N.Anahi., M.S.N. [address] [place] [phone] documented as of this encounter Visit Diagnoses Diagnosis Malignant Neoplasm Of Uterus (HCC) documented in this encounter Care Teams Wire Stitcher Operator Relationship Specialty Start Date End Date Elsewhere, Pcp PCP - General Internal Medicine 10/01/21 documented as of this encounter
--- OUTSIDE RECORDS SUMMARY | 2022-05-01 16:15 | XMS_ITS | Encounter Summary ---
:1950 Author Organization [facility] Address [address] [place] [address] Care Team Providers Name Role Phone Elsewhere, Pcp Primary Care Provider Unavailable Encounter Details Date Type Department Care Team Description 11/04/2021 Orders Only Department of Medical Merlyn Madden Malignant Neoplasm Of Genetics in [place], S, M.S., CGC Uterus Endometrial [place] [address] [facility] (HCC) (Primary Dx) [address] [place] [phone] Social History Tobacco Use Types Packs/Day Years [...] or relatives? How often do you attend temple or More than 4 times per year 03/17/2022 church services? Do you belong to any clubs or Yes 03/17/2022 organizations such as temple groups, unions, fraternal or athletic groups, or [...] to pay for the very basics like [employer] hat hard 03/17/2022 food, housing, medical care, [...] at Date Recorded Female 07/20/2021 9:20 PM COMPUTER REPAIR INSTRUCTOR documented as of this encounter Plan of Treatment Upcoming Encounters Date Type Specialty Care Team Description 05/02/2022 Appointment Radiation Oncology Dot Lopez M.D. [address] [place] [phone] 05/05/2022 Appointment Radiation Oncology Judy Mccall M.D. [address] [place] [address] [phone] 05/06/2022 Appointment Radiation Oncology Judy Mccall M.D. [address] [place] [address] [phone] 05/06/2022 Appointment Radiation Oncology Judy Mccall M.D. [address] [place] [address] [phone] 05/07/2022 Appointment Radiation Oncology Judy Mccall M.D. [address] [place] [address] [phone] 05/08/2022 Appointment Radiation Oncology Judy Mccall M.D. [address] [place] [phone] 05/22/2022 Clinical Communication Admitting/Central Scheduling 05/26/2022 Appointment Radiology Merlyn Rose APRN, C.NLeopoldo, M.S.N. 200 [place] [phone] 05/27/2022 Office Visit Oncology Merlyn Rsoe APRN, C.NLeopoldo, M.S.N. 200 [place] [phone] Pending Results Name Type Priority Associated Diagnoses Date/Ti ny [id number] [id number] [facility] Lab Routine Malignant Neoplasm Of 11/11/2021 12:00 AM Custom Panel - Uterus Endometrial (HCC) C DT Miscellaneous Test documented as of this encounter Visit Diagnoses Diagnosis Malignant Neoplasm Of Uterus Endometrial (HCC) - Primary documented in this encounter Care Teams Pharmacy Clinical Specialist Relationship Specialty Start Date End Date Elsewhere, Pcp PCP - General Internal Medicine 10/01/21 documented as of this encounter
--- OUTSIDE RECORDS SUMMARY | 2022-05-01 16:15 | XMS_ITS | Encounter Summary ---
:1950 Author Organization [facility] Address 200 [place] [address] Care Team Providers Name Role Phone Elsewhere, Pcp Primary Care Provider Unavailable Encounter Details Date Type Department Care Team Description 11/04/2021 Hospital Encounter Department of Sawyer Henriquez Neoplasm Laboratory Medicine Brady Sofia Of Uterus and Pathology, 200 [facility] [place] Endometrial (HCC) [facility], in [place], [place] [address] 200 [facility] [phone] [place], [place] (Work) [phone] Social History Tobacco Use Types Packs/Day Years [...] More than 4 times per year 03/17/2022 nondenominational services? 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 [address] [place] [phone] 05/05/2022 Appointment Radiation Oncology Judy Mccall M.D. [address] [place] [phone] 05/06/2022 Appointment Radiation Oncology Judy Mccall M.D. [address] [place] [phone] 05/06/2022 Appointment Radiation Oncology Judy Mccall M.D. [address] [place] [phone] 05/07/2022 Appointment Radiation Oncology Judy Mccall M.D. [address] [place] [phone] 05/08/2022 Appointment Radiation Oncology Judy Mccall M.D. [address] [place] [phone] 05/22/2022 Clinical Communication Admitting/Central Scheduling 05/26/2022 Appointment Radiology Merlyn Rose APRN, C.N.P., M.S.N. 200 [place] [phone] 05/27/2022 Office Visit Oncology Merlyn Rose APRN, C.N.P., M.S.N. 200 [place] [phone] Pending Results Name Type Priority Associated Diagnoses Date/Ti me [id number] [id number] [facility] Lab Routine Malignant Neoplasm Of 11/11/2021 12:00 AM Custom Panel - Uterus Endometrial (HCC) C DT Miscellaneous Test documented as of this encounter Procedures Procedure Name Priority Date/Time Associated Comments Diagnosis MISC. [facility] Routine 11/11/2021 12:00 Results fo r [employer] AM CDT procedure are i n the results section. MISCELLANEOUS SENT OUT Routine 11/11/2021 12:00 Malignant Neop lasm LAB TEST AM CDT Of Uterus Endometrial (HCC) documented in this encounter Results Misc. [facility] (11/11/2021 12:00 AM CDT) P athologist Signature Test Name Custom Panel 11/19/2021 [facility] 9:31 AM CDT Result SEE COMMENT 11/19/2021 [facility] 9:46 AM CDT Comment: For final report, select Lab-Send Out L ab Results hyperlink below. Specimen (Source) Anatomical Collection Method Collection Time Re ceived Time Location / / Volume Laterality Varies 11/11/2021 11/19/2021 9:31 AM CDT Narrative This result has an attachment that is no t available. Sawyer Henriquez M.D. LAB MISC ORDERABLES Performing Organization Address City/State/ZIP Code Phon e Number [employer] [address] [place] [address] INV [employer] [place], [place] [address] [facility] [phone] documented in this encounter Visit Diagnoses Diagnosis Malignant Neoplasm Of Uterus Endometrial (HCC) documented in this encounter Care Teams Wash Worker Relationship Specialty Start Date End Date Elsewhere, Pcp PCP - General Internal Medicine 10/01/21 documented as of this encounter
--- OUTSIDE RECORDS SUMMARY | 2022-05-01 16:15 | XMS_ITS | Encounter Summary ---
:1950 Author Organization [facility] Address [address] [place] [address] Care Team Providers Name Role Phone Elsewhere, Pcp Primary Care Provider Unavailable Reason for Referral Outpatient (Routine) Specialty Diagnoses / Procedures Referred By Contact Refer red To Contact Oncology Merlyn Rose APRN, C.NLeopoldo, [facility] M.S.N. [address] [place] [phone] Referral ID Status Reason Start Date Expiration Date Visits Requ ested Visits Authorized Specialty Diagnoses / Procedures Referred By Contact Refer red To Contact Merlyn Rose APRN, C.N.Abdirashid, [facility] M.S.N. [address] [place], [place] [phone] Referral ID Status Reason Start Date Expiration Date Visits Requ ested Visits Authorized Reason for Visit Outpatient (Routine) - Closed Specialty Diagnoses / Procedures Referred By Contact Refer red To Contact Medical Oncology / Diagnoses Malignant Neoplasm Of Uterus (HCC) [place], [facility] Oncology M.Teto, M.P.H. [address] [place] [address] Referral ID Status Reason Start Date Expiration Date Visits Requ ested Visits Authorized [id number] Closed 10/02/2021 10/02/2022 1 1 Encounter Details Date Type Department Care Team Description 10/15/2021 Comprehensive Visit Department of Latonya Baez Neoplasm Of Uterus (HCC) (Primary Dx); Oncology in Maira Armenta M.D. Malignant Neoplasm Of Uterus Endometrial (HCC) [place] [address] [place], [place] 200 [facility] [address] [place], [place] [phone] (Work) [phone] Social History Tobacco Use Types Packs/Day Years [...] or relatives? How often do you attend pentecostalism or More than 4 times per year 03/17/2022 gnosticist services? 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 - 10/15/2021 10:00 AM CDT CHIEF COMPLAINT/PUPROSE OF VISIT: Ms. Pavon is a 70 y.o. woman with diagnosis stage IIIC2 serous endometrial cancer Supervising provider: Dr. Maira Baez [phone]) HISTORY OF PRESENT ILLNESS: Ms. Pavon is a very pleasant 70 y.o. female with the following oncologic history: Oncology History Malignant Neoplasm Of Uterus Endometrial (HCC) Genetic Testing and Tumor Genotyping MMR testing pending 10/14/21: HER2 testing pending 08/12/2021 Initial Diagnosis Began experiencing PMB in [...] Chemotherapy CARBOplatin AUC 6 / PACLitaxel ( BUSINESS SERVICES REPRESENTATIVE ) Start Date: 10/22/2021 (Planned) INTERVAL HISTORY: Ms. Pavon presents today with her , Heath, for consultation and discussion of treatment recommendations for her newly diagnosed endometrial cancer. She notes that she is gradually recovering from her surgery on 10/01/2021. She notes she continues to ambulate around her home with a walker, whichshe has been utilizing since surgery. She notes this is for stability purposes, and does feel that she is gradually increasing her strength in this regard. She does still require assistance in getting out of bed and with making meals. She otherwise is independent in her activities of daily living. Shenotes a history of a chronic cough, which has been much better since her consultation with our pulmonary medicine team. She continues to use the triple nasal spray as well as Flonase for management of her chronic rhinosinusitis. She notes that her appetite has been decreased since surgery, which she is working to maintain her nutrition. She does describe issues with constipation post surgery, noting that she is currently using a generic stool softener for bowel regulation purposes. She utilizes a CPAP at night, has more recently added 1 and half to 2 L oxygen to the CPAP due to findings of sleep study during her hospitalization. She denies any issues of shortness of breath with activity throughoutthe day. She does note some lightheadedness with changing positions intermittently, but notes she has had some difficulties with drinking as much water as she had prior to surgery. She notes she is urinating without issue, denies vaginal bleeding/discharge. ROS: Pertinent items are noted in HPI; all other review of systems were negative. PMH/SURGICAL HISTORY: Past Medical History: Diagnosis Date ??? Adverse Reaction Anesthetic Personal History swollen lip and teeth canela from intubation ??? Anxiety Generalized Disorder 09/15/2006 ??? Apnea Sleep Obstructive uses cpap ??? Asthma Mild Persistent (HCC) 08/07/2011 ??? Asthma NOS chronic cough with allergies ??? Cataract ??? Complication Anesthesia Initial ??? Conization Cervical Status Post ELIU 3 ??? Depression Major One Episode Mild (HCC) 09/15/2006 ??? Gastroesophageal Reflux Disease NOS 08/29/2021 ??? Irritable Bowel Syndrome With Diarrhea ??? Loss Hearing Sensorineural Bilateral 09/27/2008 ??? Malignant Primary Neoplasm (Unknown Site) Unspecified (HCC) ??? Morbid Obesity (HCC) 05/28/2016 ??? Multiple Subsegmental Pulmonary Embolism Without Acute Cor Pulmonale (HCC) 10/03/2021 ??? Osteopenia ??? Other Psoriasis 09/15/2006 ??? Rhinitis Chronic 09/15/2006 ??? Sickness Motion Personal History ??? Sleep Apnea 09/15/2006 Past Surgical History: Procedure Laterality Date ??? APPENDECTOMY ??? BUNIONECTOMY Left ??? CERVICAL CONIZATION W/ LASER ??? CYSTECTOMY OVARIAN Right ??? DILATION AND CURETTAGE, DIAGNOSTIC / THERAPEUTIC 07/11/2021 ??? EYE SURGERY Bilateral cataract ??? HERNIA REPAIR Femoral ??? HYSTERECTOMY ABDOMINAL WITH SALPINGO - OOPHORECTOMY N/A 10/01/2021 Procedure: HYSTERECTOMY ABDOMINAL WITH BILATERAL SALPINGO - OOPHORECTOMY; Surgeon: Brianna Pineda M.D.; Location: [facility] OR ??? HYSTEROSCOPY 07/11/2021 ??? LYMPHADENECTOMY - PELVIS OR AORTIC Left 10/01/2021 Procedure: LYMPHADENECTOMY - PARA -AORTIC; Surgeon: Jessy Pineda M.D.; [facility] ??? LYMPHADENECTOMY PELVIC Right 10/01/2021 Procedure: PELVIC LYMPHADENECTOMY; Surgeon: Jessy Pineda M.D.; Location: [facility] OR ??? OMENTECTOMY N/A 10/01/2021 Procedure: OMENTECTOMY; Surgeon: Jessy Pineda M.D.; Location: [facility] OR ??? PELVIC LAPAROSCOPY No surgical intervention ??? RHINOPLASTY ??? ROBOTIC-ASSISTED ABDOMINAL EXPLORATION N/A 10/01/2021 Procedure: ROBOTIC EXPLORATION; Surgeon: Jessy Pineda M.D.; Location: [facility] OR ??? TONSILLECTOMY ??? TONSILLECTOMY AND ADENOIDECTOMY ??? URETHRAL SLING 07/11/2021 SOCIAL HISTORY: Social History Socioeconomic History ??? Marital status: Spouse name: Not on file ??? Number of children: Not on file ??? Years of education: Not on file ??? Highest education level: Bachelor's degree (e.g., BA, AB, BS) Occupational History ??? Not on file Tobacco Use ??? Smoking status: Never Smoker ??? Smokeless tobacco: Never Used Vaping Use ??? Vaping Use: never used Substance and Sexual Activity ??? Alcohol use: Not Currently Comment: rarely ??? Drug use: Never ??? Sexual activity: Not on file Other Topics Concern ??? Caffeine Concern Yes Comment: 2 cups coffee daily Social History Narrative Ms. Pavon lives with her , Heath, and they have 2 adopted, adult sons. Notes she has a total of 3 grandson's. 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 She feels that she has good support from her family and friends. Social Determinants of Health Financial Resource Strain: Medium Risk ??? Difficulty of Paying Living Expenses: Somewhat hard Food Insecurity: No Food Insecurity ??? Worried About Running Out of Food in the Last Year: Never true ??? Ran Out of Food in the Last Year: Never true Transportation Needs: No Transportation Needs ??? Lack of Transportation (Medical): No ??? Lack of Transportation (Non-Medical): No Physical Activity: Inactive ??? Days of Exercise per Week: 0 days ??? Minutes of Exercise per Session: 0 min Stress: Stress Concern Present ??? Feeling of Stress : To some extent Social Connections: Socially Integrated ??? Frequency of Communication with Friends and Family: Three times a week ??? Frequency of Social Gatherings with Friends and Family: Twice a week ??? Attends Mu-Ism Services: More than 4 times per year ??? Active Member of Clubs or Organizations: Yes ??? Attends Club or Organization Meetings: More than 4 times per year ??? Marital Status: Intimate Partner Violence: Not At Risk ??? Fear of Current or Ex-Partner: No ??? Emotionally Abused: No ??? Physically Abused: No ??? Sexually Abused: No Housing Stability: Low Risk ??? Unable to Pay for Housing in the Last Year: No ??? Number of Places Lived in the Last Year: 1 ??? Unstable Housing in the Last Year: No FAMILY HISTORY: Cancer-related family history includes Breast cancer in her paternal grandmother; Colon cancer in her maternal grandmother and mother. VITAL SIGNS: BP Readings from Last 1 Encounters: 10/07/21 135/75 Pulse Readings from Last 1 Encounters: 10/07/21 98 Temp Readings from Last 1 Encounters: 10/07/21 36.7 ??C (Oral) No data recorded PHYSICAL EXAM: General: Alert and oriented, and in no acute distress. Able to ambulate on and off the exam table without difficulty. ECOG PS of 1. Lymph: No palpable cervical, supraclavicular, axillary, and inguinal lymphadenopathy. Heart: Regular rate and rhythm. Lungs: Clear to auscultation bilaterally. Abdomen: Well-healing midline abdominal incision present. Also well-healing laparoscopic incisions present. Soft, non-tender, non-distended. Extremities: No pitting edema. No erythema or tenderness. Mood: Appropriate for current situation. DIAGNOSTICS: I reviewed the pertinent laboratory and diagnostic data. ASSESSMENT/PLAN: #1 Malignant Neoplasm Of Uterus (HCC) #2 HER2 status pending #3 Mismatch repair protein results pending This visit was done in conjunction with Dr. Maira Baez [phone]). Please see her supervisory note for further details of this discussion. Ms. Pavon presents today with her , Heath, consultation discussion of treatment recommendations for her newly diagnosed endometrial cancer. We spent time reviewing through her oncologic history,with initial onset of symptoms in April last year with postmenopausal bleeding. She initially met with her primary care provider for evaluation in May of 2021. Initial endometrial biopsies werenegative for malignancy. She underwent a CT of the abdomen and pelvis in early August, which did indicate finding of endometrial cancer. Subsequent PET imaging revealed PET avid endometrial mass, along with multiple PET avid lymph nodes in the abdomen and pelvis. She underwent surgery on 10/01/2021 with hysterectomy, BSO, pelvic and periaortic lymphadenectomy, and omentectomy. We spent time reviewing through the pathology from surgery, including stage, grade, and histology. Questions were answered to the best of my ability. She does understand that she has a stage IIIC2 serous endometrial cancer. We discussed that treatment for her endometrial cancer often times includes a combination surgery, followed by chemotherapy and radiation treatment. She has a appointment with the Radiation Oncology team next Thursday for discussion of recommendations in this regard. We spent time reviewing through recommendation for chemotherapy, including a combination of carboplatin and paclitaxel administered on a once every 3 week basis. She understands that each treatment will be approximately 5 hours in length, and we would plan for a total of 6 full cycles of treatment. She does understand that there is a poten tial that radiation would be recommended in a sandwich fashion, in which case we would do 3 cycles of chemotherapy, followed by radiation therapy, with a plan to complete the final 3 cycles of chemotherapy after radiation. We will await final recommendations from our colleagues in Radiation Oncology in this regard. We did spend time reviewing through the schedule for potential side effects of the chem otherapy, including but not limited to cytopenias, hair loss, kidney damage, nausea, GI distress, and neuropathy. Of note, we did spend time discussing that we are awaiting results of her HER2 testing and mismatch repair protein testing. She understands relevance of HER2 testing in regard to potential addition of trastuzumab/Herceptin therapy to her carboplatin and paclitaxel regimen. She understands that we willbe in contact with her in regard to results of this testing and if additional medication is recommended. We discussed relevance of the mismatch repair protein testing in regard to potential hereditary component to her cancer. She does have a family history of colon cancer in her mother and maternal grandmother. She understands that based on results of this testing, there may be a recommendation to pursue further genetic testing. We will also update her on these results. At this time, will put through orders for her to initiate treatment over the course of the next 1-2 weeks. We did spend time discussing that she could reach out to us with any questions or concerns over the patient portal. She verbalized understanding of the above information, as no further questions or concerns at this time. She is in agreement with the plan outlined above. PATIENT EDUCATION Ready to learn, no apparent learning barriers were identified; learning preferences include listening. Explained diagnosis and treatment plan; patient expressed understanding of the content. ADMINISTRATIVE BILLING I personally spent over half of a total 60 minutes face to face with the patient in counseling and discussion and/or coordination of care as described above. Associated attestation - Maira Baez M.D. - 10/15/2021 11:30 AM CDT I was the supervising physician in the delivery of the service. Patient has a stage IIIC2 endometrial cancer. I agree with the plan as documented by Merlyn Rose.We are awaiting HER2 testing to determine if we should add trastuzumab. All questions were answered. documented in this encounter Plan of Treatment Upcoming Encounters Date Type Specialty Care Team Description 05/02/2022 Appointment Radiation Oncology Dot Lopez M.D. [address] [place] [phone] 05/05/2022 Appointment Radiation Oncology Judy Mccall M.D. [address] [place] [phone] 05/06/2022 Appointment Radiation Oncology Judy Mccall M.D. [address] [place] [phone] 05/06/2022 Appointment Radiation Oncology Judy Mccall M.D. [address] [place] [phone] 05/07/2022 Appointment Radiation Oncology Judy Mccall M.D. [address] [place] [phone] 05/08/2022 Appointment Radiation Oncology Judy Mccall M.D. [address] [place] [phone] 05/22/2022 Clinical Communication Admitting/Central Scheduling 05/26/2022 Appointment Radiology Merlyn Rose APRN, C.NLeopoldo, M.S.N. [address] [place] [phone] 05/27/2022 Office Visit Oncology Merlyn Rose APRN, C.NLeopoldo, M.S.N. [address] [place] [phone] Scheduled Referrals Name Type Priority Associated Diagnoses Order S chedule Oncology - Chemo Outpatient Referral Routine Malignant Neoplas m Expected: education visit Of Uterus 10/21/2021, (clinic) Endometrial (HCC) Expires: 10/21/2022 Oncology office Outpatient Referral Routine Malignant Neoplasm Expected: visit (clinic) Of Uterus 11/12/2021, General; BUSINESS SERVICES REPRESENTATIVE Endometrial (HCC) Expires: 11/12/2022 documented as of this encounter Results (ABNORMAL) Comprehensive Metabolic Panel [...] CDT eGFR-Black/Afri >90 >=60 12/02/2021 [place] can [place] mL/min/BSA 1:39 PM CDT Comment: ----ADDITIONAL INFORMATION---- [...] 0.2 <=1.2 mg/dL 12/02/2021 1:39 PM CDT [place] Specimen Anatomical Collection Method Collection Time Receive d Time (Source) Location / / Volume Laterality Blood (Blood, 12/02/2021 10:30 12/02/2021 Venous) AM CDT 12:58 PM CDT Merlyn Rose APRN, C.N.P., M.S.N. LAB BLOOD ADD-ON Performing Organization Address City/State/ZIP Code Phon e Number [facility]- [address] [place] [address] [place] [address] System in [place] [address] (ABNORMAL) CBC with Differential, Blood (12/02/2021 10:30 AM CDT) [facility] gist Method Time Signature Hemoglobin 10.5 [...] Organization Address City/State/ZIP Code Phon e Number [facility]- [address] [place] [address] [facility] [address] [place] [address] System in [place] [address] Comprehensive Metabolic Panel (11/11/2021 10:31 AM CDT) [...] CDT eGFR-Black/Afric >90 >=60 11/11/2021 [place] an [place] mL/min/BSA 1:52 PM CDT Comment: ----ADDITIONAL INFORMATION---- [...] Organization Address City/State/ZIP Code Phon e Number [facility]- [address] [place] [address] [facility] [place] [address] System in [place] [address] (ABNORMAL) CBC with Differential, Blood (11/11/2021 10:31 AM CDT) [facility] gist Method Time Signature Hemoglobin 11.3 [...] Organization Address City/State/ZIP Code Phon e Number [address] [place] [address] [facility] [address] [place] [address] [address] Comprehensive Metabolic Panel (10/21/2021 11:30 AM CDT) athologist Signature Potassium, S 4.2 3.6 - 5.2 10/21/2021 DTL mmol/L 12:17 PM CDT Sodium, S 141 135 - 145 10/21/2021 DTL mmol/L 12:17 PM CDT Chloride, S 105 98 - 107 10/21/2021 DTL mmol/L 12:17 PM CDT Bicarbonate, S 27 22 - 29 10/21/2021 DTL mmol/L 12:17 PM CDT Anion Gap 9 7 - 15 10/21/2021 DTL 12:17 PM CDT BUN (Blood Urea 11 6 - 21 10/21/2021 DTL Nitrogen), S mg/dL 12:17 PM CDT Creatinine 0.82 0.59 - 10/21/2021 DTL 1.04 mg/dL 12:17 PM CDT eGFR-Non 73 >=60 10/21/2021 DTL Black/ mL/min/BSA 12:17 PM CDT [place] Comment: ----ADDITIONAL INFORMATION---- Estimated GFR calculated using the 2009 CKD_EPI creatinine equation. eGFR-Black/ 84 >=60 mL/min/BSA 2021 12:17 PM CDT DTL Comment: ----ADDITIONAL INFORMATION---- Estimated GFR calculated using the 2009 CKD_EPI creatinine equation. Calcium, Total, S 9.3 8.8 - 10.2 mg/dL 10/21/2021 12:1 7 PM CDT DTL Glucose, S 95 70 - 140 mg/dL 10/21/2021 12:17 PM CDT DTL Protein, Total, S 6.3 6.3 - 7.9 g/dL 10/21/2021 12:17 PM CDT DTL Albumin, S 4.4 3.5 - 5.0 g/dL 10/21/2021 12:17 PM CDT DTL Aspartate Aminotransferase 22 8 - 43 U/L 10/21/2021 1 2:17 PM CDT DTL (AST), S Alkaline Phosphatase, S 74 35 - 104 U/L 10/21/2021 12 :17 PM CDT DTL Alanine Aminotransferase (ALT), 15 7 - 45 U/L 022 12:17 PM CDT DTL S Bilirubin, Total, S 0.4 <=1.2 mg/dL 10/21/2021 12:17 P M CDT DTL Specimen Anatomical Collection Method Collection Time Receive d Time (Source) Location / / Volume Laterality Blood (Blood, 10/21/2021 11:30 10/21/2021 Venous) AM CDT 11:54 AM CDT Merlyn Rose APRN C.N.P., M.S.N. LAB BLOOD ADD-ON Performing Organization Address City/State/ZIP Code Phon e Number [facility] - [address] [place], [place] [address] [facility] [place] [address] Laboratories-[facility] [address] CBC with Differential, Blood (10/21/2021 11:30 AM CDT) P athologist Signature Hemoglobin 12.5 11.6 - 10/21/2021 DTL 15.0 g/dL 11:47 AM CDT Hematocrit 40.0 35.5 - 10/21/2021 DTL 44.9 % 11:47 AM CDT Erythrocytes 4.44 3.92 - 10/21/2021 DTL 5.13 11:47 AM CDT x10(12)/L MCV 90.1 78.2 - 10/21/2021 DTL 97.9 fL 11:47 AM CDT RBC Distrib Width 14.5 12.2 - 10/21/2021 DTL 16.1 % 11:47 AM CDT Platelet Count 252 157 - 371 10/21/2021 DTL x10(9)/L 11:47 AM CDT Leukocytes 4.9 3.4 - 9.6 10/21/2021 DTL x10(9)/L 11:47 AM CDT Neutrophils 2.92 1.56 - 10/21/2021 DTL 6.45 11:47 AM CDT x10(9)/L Lymphocytes 1.25 0.95 - 10/21/2021 DTL 3.07 11:47 AM CDT x10(9)/L Monocytes 0.54 0.26 - 10/21/2021 DTL 0.81 11:47 AM CDT x10(9)/L Eosinophils 0.14 0.03 - 10/21/2021 DTL 0.48 11:47 AM CDT x10(9)/L Basophils 0.04 0.01 - 10/21/2021 DTL 0.08 11:47 AM CDT x10(9)/L Specimen Anatomical Collection Method Collection Time Receive d Time (Source) Location / / Volume Laterality Blood (Blood, 10/21/2021 11:30 10/21/2021 Venous) AM CDT 11:39 AM CDT Merlyn Rose APRN C.N.P., M.S.N. LAB BLOOD ADD-ON Performing Organization Address City/State/ZIP Code Phon e Number [facility] - [address] [place], [place] [address] [facility] [place] [address] Laboratories-[facility] [address] documented in this encounter Visit Diagnoses Diagnosis Malignant Neoplasm Of Uterus (HCC) - Anais garcias Malignant Neoplasm Of Uterus Endometrial (HCC) documented in this encounter Care Teams Warehouse Incentive Selector Relationship Specialty Start Date End Date Elsewhere, Pcp PCP - General Internal Medicine 10/01/21 documented as of this encounter
--- OUTSIDE RECORDS SUMMARY | 2022-05-01 16:15 | XMS_ITS | Encounter Summary ---
:1950 Author Organization [facility] Address [address] [place] [address] Care Team Providers Name Role Phone Elsewhere, Pcp Primary Care Provider Unavailable Encounter Details Date Type Department Care Team Description 10/16/2021 Orders Only Department of Obstetrics and Saw Bailee santillan R.N. Gynecology in [place], [facility] [address] [place], [place] [address] [facility] [phone] [place] [phone] Social History Tobacco Use Types Packs/Day Years [...] or relatives? How often do you attend roman catholic or More than 4 times per year 03/17/2022 yazidi services? 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 [address] [place] [phone] 05/05/2022 Appointment Radiation Oncology Judy Mccall M.D. [address] [place] [phone] 05/06/2022 Appointment Radiation Oncology Judy Mccall M.D. [address] [place] [phone] 05/06/2022 Appointment Radiation Oncology Judy Mccall M.D. [address] [place] [phone] 05/07/2022 Appointment Radiation Oncology Judy Mccall M.D. [address] [place] [phone] 05/08/2022 Appointment Radiation Oncology Judy Mccall M.D. [address] [place] [phone] 05/22/2022 Clinical Communication Admitting/Central Scheduling 05/26/2022 Appointment Radiology Merlyn Rose APRN, C.NAye., M.S.N. [address] [place] [phone] 05/27/2022 Office Visit Oncology Merlyn Rose APRN, C.N.P., M.S.N. [address] [place] [phone] documented as of this encounter Visit Diagnoses Not on filedocumented in this encounter Care Teams Bias Cutting Machine Operator Relationship Specialty Start Date End Date Elsewhere, Pcp PCP - General Internal Medicine 10/01/21 documented as of this encounter
--- OUTSIDE RECORDS SUMMARY | 2022-05-01 16:15 | XMS_ITS | Encounter Summary ---
:1950 Author Organization [facility] Address [address] [place] [address] Care Team Providers Name Role Phone Elsewhere, Pcp Primary Care Provider Unavailable Reason for Visit Reason Comments [facility] Form - Dental Encounter Details Date Type Department Care Team Description 11/01/2021 Clinical Communication Department of [place] [facility] Form - Dental Oncology in Kerwin Bell M.SYiNYi, R.N. [place] [address] [address] [facility] [address] [place] [phone] Social History Tobacco Use Types Packs/Day Years [...] or relatives? How often do you attend episcopalian or More than 4 times per year 03/17/2022 yazidism services? 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 [address] [place] [address] [phone] 05/05/2022 Appointment Radiation Oncology Judy Mccall M.D. [address] [place] [address] [phone] 05/06/2022 Appointment Radiation Oncology Judy Mccall M.D. [address] [place] [address] [phone] 05/06/2022 Appointment Radiation Oncology Judy Mccall M.D. [address] [place] [address] [phone] 05/07/2022 Appointment Radiation Oncology Judy Mccall M.D. [address] [place] [address] [phone] 05/08/2022 Appointment Radiation Oncology Judy Mccall M.D. [address] [place] [phone] 05/22/2022 Clinical Communication Admitting/Central Scheduling 05/26/2022 Appointment Radiology Merlyn Rose APRN, C.N.P., M.S.N. [address] [place] [phone] 05/27/2022 Office Visit Oncology Merlyn Rose APRN, C.N.Abdirashid, M.S.N. [address] [place] [phone] documented as of this encounter Visit Diagnoses Not on filedocumented in this encounter Care Teams Ice Delivery Driver Relationship Specialty Start Date End Date Elsewhere, Pcp PCP - General Internal Medicine 10/01/21 documented as of this encounter
--- OUTSIDE RECORDS SUMMARY | 2022-05-01 16:15 | XMS_ITS | Encounter Summary ---
:1950 Author Organization [facility] [place] [facility] Address [address] [place] [address] Care Team Providers Name Role Phone Elsewhere, Pcp Primary Care Provider Unavailable Reason for Visit Outpatient (Routine) - Closed Specialty Diagnoses / Procedures Referred By Contact Refer red To Contact Clinical Genomics Diagnoses Malignant Neoplasm Of Uterus Endometrial (HCC) Cancer Colon [facility] [address] [place] [phone] Referral ID Status Reason Start Date Expiration Date Visits Requ ested Visits Authorized [id number] Closed 10/22/2021 10/22/2022 1 1 Encounter Details Date Type Department Care Team Description 11/04/2021 Telemedicine Department of Medical Mc Torres APRN, R.N. 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 REFERRING PROVIDER Sheila Torres APRN, C.* CHIEF COMPLAINT Uterine cancer HISTORY OF PRESENT ILLNESS Nelda Pavon is a 70 y.o. female referred today by Sheila Torres APRN, C.* due to her diagnosisof uterine cancer. Ms. Pavon was diagnosed with uterine cancer at age 70. 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 The patient underwent total hysterectomy with bilateral salpingo-oophorectomy.The patient also underwent chemotherapy. Immunohistochemistry was performed and demonstrated intact MMR proteins. Patient reports no additional personal history of cancer. She does report a history of about eight total colon polyps. The family history is significant for colon and breast cancer. Please see family history section below for additional details. Ms. Pavon attended today???s consultation alone. Consult conducted via real-time audio/video technology by Merlyn Madden M.S., [facility] in the [facility] to the patient in Patient's Home FAMILY HISTORY A detailed family history was obtained from the patient and a pedigree was constructed. The pedigreewill be saved as a scanned document and available for viewing under the Media tab of Tweet Category. Our risk assessment is based upon medical and family history information as provided by the patient, and may change in the future should new information be obtained. Relevant History: Maternal: Mother - colon cancer dx 49y, passed at 52y MGM - colon cancer dx early 50s, passed in her early 60s Maternal-paternal great grandmother - cancer NOS Paternal: PGM - breast cancer dx 30s, passed in her early 80s Of note, her family history is limited by the fact that both of her parents are only children. Except where noted, all diagnoses were made after the age of 50y. she does not report knowledge of any additional family members having been diagnosed with cancers or undergoing genetic testing. The patient???s maternal ancestry is Korean, Estonian, Vietnamese, Swazi, and Turkmen; the patient???spaternal ancestry is Korean. There is no reported Ashkenazi Rastafari ancestry. She does report that she believes her parents were related, though she doesn't believe they were as closely related and first- or second- cousins. IMPRESSION/REPORT/PLAN PATIENT EDUCATION We discussed that cancer is a relatively common diagnosis in the general population, and the majority of these cancers are either sporadic or familial. Hereditary cancers are caused by mutations withina single cancer susceptibility gene. Families with hereditary cancers tend to have the following features: specific types of cancer in multiple close relatives and in several consecutive generations, early age at diagnosis (under 50), multiple primary or bilateral tumors, and a lack of environmental or other known risk factors. About 2-3% of women in the [place] will develop uterine cancer during their lifetime. It is believed that approximately 5%-10% of uterine cancers are associated with a strong underlying hereditary susceptibility, such as Guillen syndrome. We discussed that Guillen syndrome is an autosomal dominant condition a ssociated with an increased risk for colon, endometrial, gastric, ovarian, and other cancers. Mutations in multiple genes can cause Guillen syndrome, including MLH1, MSH2, MSH6, PMS2, and EPCAM. The likelihood of Guillen syndrome is increased in individuals with uterine cancer with one or more of the following characteristics: diagnosed at younger than 50 years, who have a lower body mass index, or who have a strong family history of Guillen-associated cancers. Additionally, mutations in other genes, including PTEN have been found to cause a hereditary susceptibility to uterine cancer. We discussed the cancer risks and medical management guidelines associated with mutations in these genes. We discussed how these mutations are inherited through families. We discussed testing panels that cover many genes known or thought to be associated with hereditary or familial cancer. Mutations in some of the genes account for rare hereditary cancer syndromes that include significant risks for cancer, while other genes are currently thought of as modifier genes that potentially increase the risk for cancer. There are several limitations of these tests. The exact cancer risks for some of the genes that are included on these panels are not known at this point in time. Therefore, it may be difficult to provide appropriate screening/medical management recommendations. Additionally, there is a significant chance that a variant of uncertain significance may be identified. We discussed different hereditary cancer panel test options. Approximate cost, insurance coverage, and laws governing genetic discrimination were discussed. Risks, benefits, and limitations of genetic testing were discussed. Implications of possible test results, including positive, negative, and variant of uncertain significance, were discussed. RISK ASSESSMENT Ms. Pavon???s personal and family history is moderately suggestive of a genetic predisposition to cancer. The patient meets current National Comprehensive Cancer Network (NCCN) Guillen Syndrome and high penetrance breast cancer susceptibility genes Testing Criteria. Genetic testing is warranted for the p atient as results will help clarify future cancer risks and, thus, will help direct decisions regarding cancer screening and prevention. Because Guillen syndrome is associated with mutations in multiple genes, preliminary screening is helpful to determine if defective mismatch repair is present within the tumor and to clarify which genes should be further analyzed. Tumor screening has previously been performed and demonstrated intact protein expression. This is not suggestive of Guillen Syndrome. PLAN Ms. Pavon elected to pursue the Breast and Product Safety Lead + Colorectal Cancers panel through [employer]. Ms. Pavon will be sent a saliva kit by the laboratory. The laboratory will complete insurance pre-verification for testing and will contact the patient with estimated [id number] cost information via email or text message. Results will become available approximately 2-3 weeks from the release of testing. Screening and management recommendations will be made for the patient and her family members at the time of results disclosure. If results are negative or a variant of uncertain significance is identified, the patient will be contacted with results via the patient portal. If results are positive or complex, the patient will be offered an in-person or video return visit. If genetic test results are negative or a variant of uncertain significance is identified, the following screening recommendations would apply for Ms. Pavon and her relatives. PERSONAL SCREENING It is important for the patient to continue to follow the cancer screening recommendations provided by her physicians. Other screening recommendations, such as those made by the [employer], do remain appropriate. These screening recommendations may change if there are changes to the patient???s personal and/or family history. FAMILY SCREENING Given the family history of endometrial cancer, other close female relatives of the family member who had endometrial cancer are encouraged to respond promptly to endometrial cancer symptoms (e.g. dysfunctional uterine bleeding). Screening for endometrial cancer, including transvaginal ultrasound and office endometrial sampling, or the possibility of prophylactic hysterectomy may be considered. According to National Comprehensive Cancer Network guidelines, [...] 39 basedon their relative's age at diagnosis. Some combinations of affected first-,second-, and third-degree [...] screening; and colonoscopy findings in family members. The National Comprehensive Cancer Network recommends that [...] be performed as directed by their physicians. It was a pleasure to meet Ms. Pavon. She is certainly welcome to contact me with any additional questions. PATIENT EDUCATION: All of the above was discussed in detail with the patient who verbalized understanding. The patient's questions were answered. Total time: 37 minutes documented in this encounter Plan of Treatment Upcoming Encounters Date Type Specialty Care Team Description 05/02/2022 Appointment Radiation Oncology Dot Lopez M.D. [address] [place] [phone] 05/05/2022 Appointment Radiation Oncology Judy Mccall M.D. [address] [place] [phone] 05/06/2022 Appointment Radiation Oncology Judy Mccall M.D. [address] [place] [phone] 05/06/2022 Appointment Radiation Oncology Judy Mccall M.D. [address] [place] [phone] 05/07/2022 Appointment Radiation Oncology Judy Mccall M.D. [address] [place] [phone] 05/08/2022 Appointment Radiation Oncology Judy Mccall M.D. [address] [place] [phone] 05/22/2022 Clinical Communication Admitting/Central Scheduling 05/26/2022 Appointment Radiology Merlyn Rose APRN, C.NAye., M.S.N. [address] [place] [phone] 05/27/2022 Office Visit Oncology Merlyn Rose APRN, C.N.P., M.S.N. [address] [place] [phone] documented as of this encounter Visit Diagnoses Diagnosis Malignant Neoplasm Of Uterus Endometrial (HCC) Cancer Colon Family History documented in this encounter Care Teams Automatic Centrifugal Station Operator Relationship Specialty Start Date End Date Elsewhere, Pcp PCP - General Internal Medicine 10/01/21 documented as of this encounter
--- OUTSIDE RECORDS SUMMARY | 2022-05-01 16:15 | XMS_ITS | Encounter Summary ---
:1950 Author Organization [facility] Address [address] [place] [address] Care Team Providers Name Role Phone Elsewhere, Pcp Primary Care Provider Unavailable Reason for Referral Outpatient (Routine) - Closed Specialty Diagnoses / Procedures Referred By Contact Refer red To Contact Clinical Genomics Diagnoses Malignant Neoplasm Of Uterus Endometrial (HCC) Cancer Colon Family History Sheila Torres APRN, [facility] R.N. [address] [place] [phone] Referral ID Status Reason Start Date Expiration Date Visits Requ ested Visits Authorized [id number] Closed 10/22/2021 10/22/2022 1 1 Encounter Details Date Type Department Care Team Description 10/22/2021 Orders Only Department of Sheila Torres, Malignant N eoplasm Of Uterus Endometrial (HCC) (Primary Dx); Obstetrics and [facility], R.N. Cancer Colon Family History Gynecology in [address] [place] [address] [place] [phone] [place], [place] [phone] (Work) [phone] Social History Tobacco Use Types Packs/Day Years [...] place to sleep or slept in a [place] [facility] [place] (including now)? Education Answer Date Recorded What is the highest level of school Bachelor's degree (e.g., BA, AB, 07/20/2021 you have completed or the highest BS) degree you have received? 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 [address] [place] [phone] 05/05/2022 Appointment Radiation Oncology Judy Mccall M.D. [address] [place] [phone] 05/06/2022 Appointment Radiation Oncology Judy Mccall M.D. [address] [place] [phone] 05/06/2022 Appointment Radiation Oncology Judy Mccall M.D. [address] [place] [phone] 05/07/2022 Appointment Radiation Oncology Judy Mccall M.D. [address] [place] [phone] 05/08/2022 Appointment Radiation Oncology Judy Mccall M.D. [address] [place] [phone] 05/22/2022 Clinical Communication Admitting/Central Scheduling 05/26/2022 Appointment Radiology Merlyn Rose APRN, C.NLeopoldo, M.S.N. [address] [place] [phone] 05/27/2022 Office Visit Oncology Merlyn Rose APRN, C.NAye., M.S.N. [address] [place] [phone] Scheduled Referrals Name Type Priority Associated Diagnoses Order [facility] Clinical Genomics Outpatient Referral Routine Malignant Neopla sm Of Expected: - General genetics Uterus Endometrial consult (clinic) (HCC) (Approximate), Cancer Colon Family Expires: History 01/22/2023 documented as of this encounter Visit Diagnoses Diagnosis Malignant Neoplasm Of Uterus Endometrial (HCC) - Primary Cancer Colon Family History documented in this encounter Care Teams Commercial Retoucher Relationship Specialty Start Date End Date Elsewhere, Pcp PCP - General Internal Medicine 10/01/21 documented as of this encounter
--- OUTSIDE RECORDS SUMMARY | 2022-05-01 16:15 | XMS_ITS | Encounter Summary ---
:1950 Author Organization [facility] Address [address] [place] [address] Care Team Providers Name Role Phone Elsewhere, Pcp Primary Care Provider Unavailable Encounter Details Date Type Department Care Team Description 10/18/2021 Clinical Communication Department of Ann Mcduffie Radiation Oncology [place] in [place], [place] [address] [place] [phone] Social History Tobacco Use Types Packs/Day Years [...] or relatives? How often do you attend yazidi or More than 4 times per year 03/17/2022 episcopalian services? Do you belong to any clubs or Yes 03/17/2022 organizations such as yazidi groups, unions, fraternal or athletic groups, or [...] at Date Recorded Female 07/20/2021 9:20 PM CHEF HEAD documented as of this encounter Plan of Treatment Upcoming Encounters Date Type Specialty Care Team Description 05/02/2022 Appointment Radiation Oncology Dot Lopez M.D. [address] [place] [address] [phone] 05/05/2022 Appointment Radiation Oncology Judy Mccall M.D. [address] [place] [phone] 05/06/2022 Appointment Radiation Oncology Judy Mccall M.D. [address] [place] [address] [phone] 05/06/2022 Appointment Radiation Oncology Judy Mccall M.D. [address] [place] [phone] 05/07/2022 Appointment Radiation Oncology Judy Mccall M.D. [address] [place] [address] [phone] 05/08/2022 Appointment Radiation Oncology Judy Mccall M.D. [address] [place] [phone] 05/22/2022 Clinical Communication Admitting/Central Scheduling 05/26/2022 Appointment Radiology Merlyn Rose APRN, C.N.P., M.S.N. [address] [place] [phone] 05/27/2022 Office Visit Oncology Merlyn Rose APRN, C.N.P., M.S.N. [address] [place] [address] [phone] documented as of this encounter Visit Diagnoses Not on filedocumented in this encounter Care Teams Network Account Manager Relationship Specialty Start Date End Date Elsewhere, Pcp PCP - General Internal Medicine 10/01/21 documented as of this encounter
--- OUTSIDE RECORDS SUMMARY | 2022-05-01 16:16 | XMS_ITS | Encounter Summary ---
:1950 Author Organization [facility] Address [address] [place] [address] Care Team Providers Name Role Phone Elsewhere, Pcp Primary Care Provider Unavailable Reason for Referral Outpatient (Routine) - Closed Specialty Diagnoses / Procedures Referred By Contact Refer red To Contact Vascular Medicine Diagnoses Multiple Subsegmental Pulmonary Embolism Without Acute Cor Pulmonale (HCC) Sheila Torres APRN, [place] R.N. [address] [place] [address] Referral ID Status Reason Start Date Expiration Date Visits Requ ested Visits Authorized [id number] Closed 10/07/2021 10/07/2022 1 1 EATION ATTENDANT Medication Prior Authorization - Authorized Specialty Diagnoses / Procedures Referred By Contact Refer red To Contact Sheila Torres APRN , R.NYi [address] [place] [phone] Referral ID Status Reason Start Date Expiration Date Visits V isits Requested Authorized [id number] Authorized 07/10/2021 10/08/2022 1 1 EATION ATTENDANT Outpatient (Routine) - Closed Specialty Diagnoses / Procedures Referred By Contact Refer red To Contact Obstetrics and Sheila Torres [facility] Gynecology ALVA, R.NYi [address] [place] [address] Referral ID Status Reason Start Date Expiration Date Visits Requ ested Visits Authorized [id number] Closed 10/07/2021 10/07/2022 1 1 EATION ATTENDANT Outpatient (Routine) - Closed Specialty Diagnoses / Procedures Referred By Contact Refer red To Contact Radiation Oncology Diagnoses Malignant Neoplasm Of Uterus (HCC) Martinez Rock [place] Brady, M.P.H. [address] [place] [phone] Referral ID Status Reason Start Date Expiration Date Visits Requ ested Visits Authorized [id number] Closed 10/02/2021 10/02/2022 1 1 EATION ATTENDANT Outpatient (Routine) - Closed Specialty Diagnoses / Procedures Referred By Contact Refer red To Contact Medical Oncology / Diagnoses Malignant Neoplasm Of Uterus (HCC) Martinez Rock [facility] Oncology Brady, M.P.H. [address] [place] [phone] Referral ID Status Reason Start Date Expiration Date Visits Requ ested Visits Authorized [id number] Closed 10/02/2021 10/02/2022 1 1 Scheduling Instructions Please try to schedule within 2 weeks EATION ATTENDANT Encounter Details Date Type Department Care Team Description 10/01/2021 - Hospital Encounter [facility] Jessy Pineda Neoplasm Of Uterus Endometrial (HCC) (Primary Dx); 10/07/2021 Flower Schmitz M.D. Malignant Neoplasm Of Uterus Endometrial (HCC); [facility], [address] [place] [address] Malignant Neoplasm Of Uterus (HCC); [place], [place] Decline Functi onal Status; [facility], [facility] [phone] Multiple Subsegmental Pulmonary Embolism Without Acute Cor Pulmonale (HCC) Floor [phone] [address] [facility] (Work) [place], [place] [phone] (Fax) [phone] Social History Tobacco Use Types Packs/Day Years [...] at Date Recorded Female 07/20/2021 9:20 PM RECREATION ATTENDANT documented as of this encounter Last Filed Vital Signs Vital Sign Reading Time Taken Comments Blood Pressure 135/75 10/07/2021 5:19 PM RECREATION ATTENDANT Pulse 98 10/07/2021 5:19 PM RECREATION ATTENDANT Temperature 36.7 ??C (98.06 ??F) 10/07/2021 5:19 PM RECREATION ATTENDANT Respiratory Rate 20 10/07/2021 5:19 PM RECREATION ATTENDANT Oxygen Saturation 96% 10/07/2021 5:19 PM RECREATION ATTENDANT Inhaled Oxygen Concentration - - Weight 106 kg (233 lb 11 oz) 10/03/2021 4:00 PM RECREATION ATTENDANT Height 163.5 cm (5' 4.37) 10/01/2021 6:36 AM RECREATION ATTENDANT Body Mass Index 39.65 10/01/2021 6:36 AM RECREATION ATTENDANT documented in this encounter Discharge Summaries [place] Rock M.D., M.P.H. - 10/07/2021 5:39 PM CST DISCHARGE SUMMARY BRIEF OVERVIEW Hospital: [facility] Discharge Provider: Jessy Pineda M.D. Primary Team: [facility]al[facility] Gynecologic Surgery - [place] Primary Care Providers: Elsewhere, Pcp (General) No address on file Primary Care Provider Phone Number: None Primary Care Provider Fax Number: None Other Providers: None Admission Date: 10/01/2021 Discharge Date: 10/07/2021 PRINCIPAL DIAGNOSIS Malignant Neoplasm Of Uterus Endometrial (HCC) SECONDARY DIAGNOSES Principal Problem: Malignant Neoplasm Of Uterus Endometrial (HCC) Active Problems: Multiple Subsegmental Pulmonary Embolism Without Acute Cor Pulmonale (HCC) Resolved Problems: * No resolved hospital problems. * Surgery Information This Encounter Past Procedures (10/07/2020 to Today) Date Procedures Providers Location 10/01/2021 ROBOTIC EXPLORATION, PELVIC LYMPHADENECTOMY, LYMPHADENECTOMY - PARA -AORTIC, HYSTERECTOMY ABDOMINAL WITH BILATERAL SALPINGO - OOPHORECTOMY, OMENTECTOMY Jessy Pindea M.D.Polen-De, Clarissa L, M.D.Reckhow, Jensen D, M.D., M.P.H. [facility] OR DISCHARGE DISPOSITION Home or Self Care [1] OUTPATIENT FOLLOW UP Scheduled Appointments 10/15/2021 7:40 AM LAB BLOOD ROCH Laboratory Medicine 10/15/2021 10:00 AM Maira Baez M.D. Oncology 10/21/2021 10:30 AM Ann Mcduffie M.D. Radiation Oncology For appointment details refer to your Patient Appointment Guide. TEST RESULTS PENDING AT DISCHARGE Pending Labs None DETAILS OF HOSPITAL STAY REASON FOR ADMISSION Malignant Neoplasm Of Uterus Endometrial (HCC) HOSPITAL COURSE DISCHARGE SUMMARY Admission Date: 10/01/2021 Discharge Date: 10/04/2021 Discharge Provider: Jessy Pineda M.D. Responsible Author(s): [place] Rock M.D., M.P.H. PRIMARY DIAGNOSIS Endometrial Carcinoma ADDITIONAL DIAGNOSES Obesity Diverticulosis Chronic cough Pulmonary Embolism BRIEF HOSPITAL COURSE Surgeon: Jessy Pineda M.D. Polen-De, Clarissa L, M.D. Reckhow, Jensen D, M.D., M.P.H. PROCEDURE DATE: 10/01/2021 TYPE OF PROCEDURE(S): Procedure(s) (LRB): ROBOTIC EXPLORATION (N/A) PELVIC LYMPHADENECTOMY (Right) LYMPHADENECTOMY - PARA -AORTIC (Left) HYSTERECTOMY ABDOMINAL WITH BILATERAL SALPINGO - OOPHORECTOMY (N/A) OMENTECTOMY (N/A) PROCEDURAL COMPLICATIONS: None POSTOPERATIVE COURSE: The patient recovered in PACU prior to being transferred to the floor for recovery. On POD1 the Im catheter was removed with a successful voiding trial. The patient began to ambulate and tolerate PO intake. She had a persistent supplemental O2 requirement, so her care was reviewed by Pulmonology who recommended a chest x-ray to assess for atelectasis. Chest x-ray was unremarkable so CT angiogram was performed to assess for pulmonary embolism and a right lung pulmonary embolism was found. Vascular Medicine was consulted for management recommendations and the patient was started on a heparin infusion. On POD3 the patient was evaluated by physical therapy and respiratory therapy for homegoing planning. On POD4 vascular medicine was re-consulted for anticoagulation recommendations. Per their recommendations IV heparin was discontinued and Eliquis 10 mg BID was started for 7 days and then patient will be transitioned to 5 mg BID for 6 months with plans for 3 month follow up in Thrombophilia clinic. The patient continued to advance towards post-operative recovery milestones including working on ambulation over the next two days. On POD6 the patient met criteria for discharge and was discharged to home. PATHOLOGY: Recent Results (from the past 168 hour(s)) Cytology Non-CARTOGRAPHY PROFESSOR Status: Abnormal Result Value (A) Report electronically signed by (A) Eddie Arteaga M.D., Ph.D. I verify that I have examined all relevant slides/materials for the specimen(s) and rendered or confirmed the diagnosis. Gross Description Received 90 cc of clear fluid. (A) Source A. Peritoneal, Pelvic, washing (A) Interpretation (A) A. Peritoneal, Pelvic, washing (ThinPrep/cell block): Atypical. Abnormal epithelial cells, favor reactive/degenerative etiology. Immunohistochemical studies were performed. Stains of Urbano-EP4, MOC31, D2-40, calretinin and Claudin-4 support the diagnosis. *Note: Due to a large number of results and/or encounters for the requested time period, some results have not been displayed. A complete set of results can be found in Results Review. CYTOLOGY: Order Name Source Comment Collection Info Order Time CYTOLOGY NON-CARTOGRAPHY PROFESSOR Peritoneal Fluid Collected By: Jessy Pineda M.D. 10/01/2021 10:16 AM Should the communication of this result to the patient's portal be released immediately? Manual release only SURGICAL PATHOLOGY, [facility] Colon Collected By: Jessy Pineda M.D. 10/01/2021 11:00 AM Should the communication of this result to the patient's portal be released immediately? Manual release only DISMISSAL LABS: Hemoglobin: Lab Results Component Value Date HGB 10.5 (L) 10/04/2021 Creatinine: Lab Results Component Value Date CREATININE 0.78 10/02/2021 FOLLOW UP APPOINTMENTS: 1. Plan for a routine post-operative visit at 6 weeks to assess healing and recovery after surgery. 2. Plan for consultations with Medical Oncology and Radiation Oncology to discuss plans for treatment of your cancer after surgery. 3. Anticoagulation: Please continue to take Eliquis 10mg twice daily for 10 days total, and after this take 5mg twice daily. You will continue taking this therapy for at least 6 months. If you have anyquestions or concerns regarding this therapy, please contact the Vascular Medicine team. 4. Plan for a follow up visit with Vascular Medicine Thrombophilia Clinic in 3 months to assess yourrecovery from the pulmonary embolism and to guide management therapy moving forward. CONSULTS ORDERED DURING THIS ADMISSION IP CONSULT TO VASCULAR MEDICINE IP CONSULT TO CARE MANAGEMENT IP CONSULT TO CARE MANAGEMENT CONDITION AT DISCHARGE stable Discharge instructions were provided to the patient and caregiver(s). EATION ATTENDANT documented in this encounter Discharge Instructions Discharge InstructionsPaEliseo ibanez R.N. - 10/01/2021 7:33 AM CST Images from the original note were not included. Patient Education Your Scopolamine Patch You have a scopolamine patch behind your ear or on your neck. The patch is used to prevent nausea. Precautions while you wear the scopolamine patch ?? You may have impaired thinking or slowed reaction time. For these reasons, do not drive or operate machinery. ?? Do not drink alcohol. Patch removal Take the patch off 24 hours after your procedure unless you are told otherwise. Wash the area behindyour ear or on your neck with soap and water where the patch was placed to ensure no medication is left on your skin. It is very important that you follow these instructions to take the patch off and dispose of it safely: ?? Fold the used patch with the sticky sides together. Throw the patch away so that children and pets cannot get it. ?? Wash your hands immediately after you take off the patch. ?? Do not touch your eyes until after your wash your hands. Possible side effects Common side effects of wearing a scopolamine patch include the following: ?? Dry mouth ?? Feeling sleepy ?? Confusion ?? Dry or itchy eyes, or vision changes ?? Dizziness ?? Feeling restless ?? Mild itching or skin rash ?? Difficulty urinating If you have any of these side effects or you have any side effect not listed, immediately remove thepatch. Be sure to follow the instructions to safely dispose of the patch. The medication from the patch will remain in your system for a short while, so you may continue to have side effects until it is no longer in your system. If you have questions about your patch or how to remove it, contact your health care provider. This material is for your education and information only. This content does not replace medical advice, diagnosis or treatment. New medical research may change this information. If you have questions about a medical condition, always talk with your health care provider. ? 2017 [facility] ([facility]). All rights reserved. [id number] EATION ATTENDANT AttachmentsThe following attachments cannot be sent through Care Everywhere. Acetaminophen (By mouth) (Croatian)Apixaban (By mouth) (Croatian)Ondansetron (By mouth, Into the mouth) (Croatian)Oxycodone, Rapid Release (By mouth) (Croatian) Laxative, Stimulant Combination (By mouth) (Croatian)documented in this encounter Medications at Time of [...] day. fluticasone propionate Administer 2 sprays 0 07/03/2021 (FLONASE) 50 into nostril(s) 2 mcg/actuation nasal (two) times a day. spray mometasone 0.033 Administer 2 sprays 84 mL 11 09/16/2021 %-ipratropium 0.02 into each nostril 2 %-diphenhydramine 0.033 (two) times a day. % nasal spray Shake very well prior to each use. montelukast (SINGULAIR) Take 1 tablet by 0 2020 10 mg tablet mouth at bedtime. omeprazole (PriLOSEC) 20 Take 20 mg by mouth [address] capsule every morning before breakfast. sennosides-docusate Take 1 tablet by 0 10/07/2021 sodium (SENOKOT-S) mouth 2 (two) times 8.6-50 mg per tablet a day as needed for constipation. sertraline (ZOLOFT) 100 Take 100 mg by mouth 0 mg tablet every morning. albuterol 90 Inhale 2 puffs every 0 08/22/2019 mcg/actuation inhaler 4 (four) hours as needed for wheezing. ipratropium-albuteroL Inhale 3 mL every 6 0 07/30 (DUONEB) 0.5-2.5 mg/3 mL (six) hours as nebulizer solution needed for wheezing or shortness of breath. ondansetron (ZOFRAN) 4 Take 1 tablet (4 mg 20 tablet 0 03/0 01/2022 mg tablet total) by mouth every 8 (eight) hours as needed for nausea or vomiting. SODIUM CHLORIDE NASAL Administer into 0 nostril(s) [...] Acute Pain. documented as of this encounter Progress Notes Demar Vergara P.T., D.P.T., A.T.C. - 10/07/2021 4:00 PM CST Physical Therapy Inpatient Treatment Note SUBJECTIVE Patient's Name: Nelda Jack Pavon Referring/Attending: Jessy Pineda M.D. Medical Diagnosis: Malignant Neoplasm Of Uterus Endometrial (HCC) [C54.1] Reason for Referral: PT Evaluate and Treat PT evaluate and treat general acute Onset Date: 10/04/21 Payor: MEDICARE / Plan: MEDICARE A AND B / Product Type: Medicare / History of Present Illness: Patient presents in setting of malignant neoplasm of uterus endometrial status post hysterectomy on October 01 2021. She is on heparin for pulmonary embolism. Has been utilizing supplemental oxygen via nasal cannula - today on 1 L Family/Caregiver Present: Yes Patient/Caregiver Goals: Patient would like to get stronger and be and more independent before discharge Patient Comments: Patient agreeable to physical therapy. Increased confidence in mobility- was able to meet with social work and is working on finding more resources for the home environment. Anticipates discharge home today Precautions Other Precautions: Abdominal, fall, cancer. Fall Risk (65 and older) Fall in the last 12 months: Yes Did you have an injury with the fall?: No Are you fearful of falling?: Yes OBJECTIVE Sugar's NOHARM modalities were not used during their therapy session. Vitals not formally assessed during session. No concerns during chart review and the patient had no signs or symptoms consistent with vital changes during therapy session. Treatment consisted of: Bed Mobility - Supine to Sit # of Assistants: 1 Level of Assistance: Minimal assistance Device: None Cuing: Verbal, Tactile Comments: Verbal cuing on how to perform logroll transfer keeping arms in tight and maintaining abdominal precautions, light physical assist at lower extremities and upper torso. Completed transfer x3 in session, each successful transfer resulted in less pain. Bed Mobility - Sit to Supine # of Assistants: 1 Level of Assistance: Minimal assistance Device: None Cuing: Verbal, Tactile Comments: Verbal cuing to perform side-lying then reverse logroll transfer; light physical assist atlower extremities. Patient's spouse will be able to provide this much assistance at home. Bed Mobility - Scooting Level of Assistance: Independent Sit to Stand Transfers # of Assistants: 1 Transfer Surface: Bed, Wheelchair, Chair Transfer Equipment: Front wheeled walker, Gait belt Level of Assistance: Supervision/set-up Assessment/Delivery: Instructed, Assessed, Therapist assisted Comments: Verbal cuing to exhale through transfer in order to reduce abdominal pressure and pain. Completed transfer x3 in session from varying heights. Patient had better pain management, and requiredno physical assist Stand to Sit Transfers # of Assistants: 1 Transfer Surface: Chair, Bed, Wheelchair Transfer Equipment: Gait belt, Front wheeled walker, Grab bars(s) Level of Assistance: Supervision/set-up Assessment/Delivery: Assessed, Instructed, Therapist assisted Comments: Verbal cuing to exhale during transfer while controlling descent in order to reduce abdominal pressure and pain. Completed transfer x3 in session from varying heights, no physical assist needed Bed, Chair, Wheelchair Transfers # of Assistants: 1 Transfer Surface: Bed, Chair, Wheelchair Transfer Approach: To and from, Ambulating Transfer Equipment: Front wheeled walker Level of Assistance: Supervision/ Set-up Assessment/Delivery: Assessed, Therapist assisted Comments: Assistance with equipment set up and continuous monitoring of patient's response to activity. Patient tolerated transfers well, no adverse events or increase in pain Gait Assessment/Training Distance (m): 40 m Surface: Even Device: Gait belt, Front-wheeled walker # of Assistants: 1 Level of Assistance: Supervision/Set-up Assessment of Gait: Patient maintains wide base of support, symmetrical stride length, but increasedgait speed today Cueing Provided: Verbal Training/Intervention: Verbal cuing for breathing reminders and to take breaks as pain manifests- continuous monitoring of patient's response to activity Response: Patient remained asymptomatic, tolerated longer distance ambulation well without supplemental oxygen Stairs/Curb # Stairs: 15 (15 stairs up and 15 stairs down) Rails: 1 Device: Gait belt, Single point cane # of Assistants: 1 Level of Assistance: Supervision/Set-up Stair Navigation Pattern-Ascending: Step-to pattern Stair Navigation Lead Foot-Ascending: Left Stair Navigation Pattern-Descending: Step-to pattern Stair Navigation Lead Foot-Descending: Right Cueing Provided: Verbal, Visual Training/Intervention: Verbal and visual review to lead with stronger lower extremity while ascending and lead with weaker feeling lower extremity well descending. Additional verbal cues to exhale during exertion. Continuous monitoring of patient's response to increased activity Response: Patient completed stair training with less rest breaks, and more efficiency. Required lessverbal cuing today, and less time to complete more steps Stairs Comments: Patient admitted to increased confidence, felt more comfortable with home going plan Education provided this session: Additional time spent session providing Education on abdominal precautions, how to mobilize without pain, proper breathing pattern with activity, general recommendations for daily activities, and physical therapy plan of care The patient/family educated on safe transfer techniques with functional mobility/activity. The following coordination of care occurred today: Patient's nurse was contacted and patient's status was discussed Patient was left in bed at end of session with call light in reach, all needs met and questions answered. Contact monitoring: PPE used during therapy: Therapist was wearing the following PPE throughout entire session: surgicalmask, eye protection and gloves Patient was wearing a mask during therapy session: yes Outcome Measures [facility] Inpatient Short Form: -[facility] Basic Mobility (V.2) How much help from another person do you currently need???If the patient hasn't done an activity recently, how much help from another person do you think he/she would need if he/she tried? 1. Turning from your back to your side while in a flat bed without using bedrails?: None 2. Moving from lying on your back to sitting on the side of a flat bed without using bedrails?: A Little 3. Moving to and from a bed to a chair (including a wheelchair)?: None 4. Standing up from a chair using your arms (e.g., wheelchair, or bedside chair)?: None 5. To walk in hospital room?: None 6. Climbing 3-5 steps with a railing?: None -[facility] Basic Mobility (V.2) Raw Score: 23 -[facility] Basic Mobility (V.2) Standardized Score: 50.88 Interpretation: Clinicians answer the -[facility] Inpatient Short Form based on observed patient activityand/or clinical judgement (ie. patient can be scored without physically performing each activity) Based on scoring guidelines using the raw score value: Those going to home had an average score of 20.1 Those going home with home care had an average score of 17.9 Those going to SNF had an average score of 14 Those going to IRF had an average score of 13.6 Those going to a LTAC had an average score of 11.5 Assessment Discharge Therapy Needs - PT: Ongoing skilled physical therapy (May benefit from outpatient or home health care services if discharging home) Skilled therapy can include physical therapy provided by home health, outpatient clinic, or a post-acute facility. The location of these services is determined by the patient's care team in partnershipwith patient/family. Level of Care Needed - PT: Assistance with stairs, Assistance with bed mobility (Spouse will be ableto provide assistance) Equipment Recommended - PT: Front-wheeled walker Equipment ordered from [facility] store through [facility] on behalf of patient. Barriers to Discharge Home: None Barriers to Discharge Comments: Patient had much improved activity tolerance today, completed bed mobility with less physical assist without hospital bed features, and is working on plan for friends/caregivers to check in daily From a physical therapy perspective, the level of care above has been recommended for Ms. Pavon after hospital discharge. This level of care is based on her functional abilities during today's session.This may change throughout the hospital course and will be updated as appropriate. Clinical Impression of today's session: Patient able to tolerate more activity and complete all mobility with less physical assist and less time. Patient demonstrated increased efficiency with stair training, and sit to stand transfers. Mostassistance needed with bed mobility, which patient's caregiver will be able to provide. Overall, patient made significant progress in physical therapy session today and was able to achieveor partially meet all goals. Patient is appropriate to discharge from acute care physical therapy atthis time. Rehab potential: Ms. Pavon has Good potential to achieve established physical therapy goals within the time frame outlined below. Progress: Improving as expected Functional Goals and Timeframes: PT Inpatient Goals PT Goal #1: Patient will perform bed mobility independently without use of hospital bed future usinglogroll technique. PT Goal #1 Status: Modified (Partially met- completed with Min assist and no hospital bed features. Spouse will be able to provide Min assist in the home environment) PT Goal #2: Patient perform transfers modified independently with use of front wheeled walker. PT Goal #2 Status: Achieved (Capable of mod I, supervision provided in session to increase safety) PT Goal #3: Patient will ambulate 30 m with front wheeled walker and management of oxygen as needed. PT Goal #3 Status: Achieved (Patient no longer requires supplemental oxygen) PT Goal #4: Patient will navigate 15 stairs with supervision and use of 1 rail as well as managing oxygen. PT Goal #4 Status: Achieved (Patient no longer requires supplemental oxygen) Plan Treatment Plan: Plan: Discontinue PT PT Frequency: PT Frequency: 6 times per week PT Inpatient Duration : Until goals are met or hospital discharge Requires Inpatient Follow-Up: No PT Plan Comments: All goals met or partially met, patient appropriate to discharge from acute care physical therapy Treatment interventions may include: Treatment/Interventions: Therapeutic exercise, Therapeutic functional activity, Neuromuscular re-education, Gait training, Self-care/home management EGYPTOLOGIST Visit Trackin Billing: Time Spent with Patient Gait Training (min): 12 min Therapeutic Activity (min): 28 min Total Timed Units (min): 40 min Total Treatment Time (min): 40 min Demar Vergara P.T., Jimbo, Celso EATION ATTENDANT Roman Leon R.R.T. - 10/07/2021 7:14 AM CST 10/07/21712 Nocturnal Oxygen Assessment Asleep Room Air SpO2 83 Percent (SpO2 83% on room air) Oxygen Flow Rate 2 L/min (2 L/Min O2 with CPAP) Nocturnal oxygen assessment completed. Patient SpO2 83% for 5 minutes or greater. Any desaturations on trend lower than patient SpO2 is considered artifact. Damari Alexander Pharm.D., R.Ph. - 10/07/2021 6:32 AM CST Pharmacist Progress Note 70 y.o. female w/ Malignant Neoplasm Of Uterus Endometrial (HCC) s/p ROBOTIC EXPLORATION, PELVIC LYMPHADENECTOMY - Right, LYMPHADENECTOMY - PARA -AORTIC - Left HYSTERECTOMY ABDOMINAL, BSO and OMENTECTOMY on 10/01/2021 Hospital course complicated by provoked PE found 10/02/2021 Relevant PMH: New onset R-Lung PE (10/02/2021), Asthma, CORTES, chronic cough, ROMELIA/depression, GERD OBJECTIVE VSS/wnl; apixaban 10 mg BID Pain 2-3, C; APAP scheduled, oxy prn (10 yest, none since [place]) Good UOP; +F, last BM charted: 10/05; MOM BID, senna-s BID Home medications: ?? Held: supplements ?? Changed: formulary interchange as indicated ASSESSMENT / PLAN - Patient's last BM on 10/05 - removed Milk of Magnesia per order directions and per CPA. - Transitioned from UFH gtt to apixaban per vasc med. Planning apixaban 10 mg BID x10 days (d3 today), then chg to 5 mg BID (needs this order placed) - Removed lactated ringers per CPA as was stopped days ago per directions. Changes to medications anticipated at discharge: Apixaban per vasc med Damari Mcclellan Pharm.D., R.Ph. EATION ATTENDANT Martinez Rock M.D., M.P.H. - 10/07/2021 6:21 AM CST SUBJECTIVE Ms. Nelda Pavon is a 70 y.o. who is currently 6 Days Post-Op. Events over the past 24 hours: - Required 2L NC overnight - Pain is optimally controlled on Tylenol and Oxycodone. - Tolerating PO without nausea/vomiting - Flatus: yes - Bowel movement: yes - Voiding: Yes - urine output 550cc overnight - Ambulating: Yes This morning Ms. Pavon is feeling well. Pain is well controlled. She is able to ambulate independently. She is tolerating PO intake. OBJECTIVE Vital signs reviewed. Vitals: 10/07/21 0329 BP: Pulse: Resp: 18 Temp: SpO2: Temp (24hrs), Av.9 ??C, Min:36.8 ??C, Max:37.1 ??C Weight change: I/O 10/05 0710/06 0701 10/07 07 P.O. 1730 1420 Total Intake(mL/kg) 1730 (16.3) 1420 (13.4) Urine (mL/kg/hr) 1675 (0.7) 1300 (0.5) Stool 0 Total Output 1675 1300 Net +55 +120 Unmeasured Stool Occurrence 1 x PHYSICAL EXAM General: Alert and oriented, in no acute distress. Abdomen: Soft, nondistended. Appropriate tenderness to palpation. Normal bowel sounds. Abdominal midline incision well approximated and well healing. Lower extremities: Nontender, SCDs in place LABORATORY RESULTS Hemoglobin Date Value Ref Range Status 10/05/2021 11.6 11.6 - 15.0 g/dL Final Leukocytes Date Value Ref Range Status 10/05/2021 8.6 3.4 - 9.6 x10(9)/L Final No results found for this visit on 10/01/21 (from the past 72 hour(s)). IMAGING RESULTS, LAST 1 DAY No results found. ASSESSMENT / PLAN Medical Problems Diagnosis List * (Principal) Malignant Neoplasm Of Uterus Endometrial (HCC) Overview Signed 09/05/2021 11:16 AM by Bailee Rocha R.N. Added automatically from request for surgery [id number] Anxiety Generalized Disorder Asthma Mild Persistent (HCC) Bronchospasm Acute Depression Major One Episode Mild (HCC) Gastroesophageal Reflux Disease NOS Sleep Apnea Rhinitis Chronic Loss Hearing Sensorineural Bilateral Morbid Obesity (HCC) Other Psoriasis Morbid Obesity Body Mass Index >= 35 with Comorbid Condition (HCC) Malignant Neoplasm Of Uterus (HCC) Chronic Cough Allergy Penicillin Antibiotic Personal History Multiple Subsegmental Pulmonary Embolism Without Acute Cor Pulmonale (HCC) Status Post: Procedure(s) (LRB): ROBOTIC EXPLORATION (N/A) PELVIC LYMPHADENECTOMY (Right) LYMPHADENECTOMY - PARA -AORTIC (Left) HYSTERECTOMY ABDOMINAL WITH BILATERAL SALPINGO - OOPHORECTOMY (N/A) OMENTECTOMY (N/A) Condition: doing well without problems Diet: Regular adult diet, advance as tolerated Activity: up ad magdaleno, encourge ambulation VTE Prophylaxis: sequential compression device, Continue on 10 mg of Apixaban BID for 10 days for newly diagnosed pulmonary embolism. Bowel Regimen: Senna Drains: None Pain Management: Tylenol, Oxycodone and pain well-controlled on oral pain meds Antibiotics: s/p 24 hours of Ancef/Flagyl Anticipated Disposition: Discharge pending PT evaluation today ?? # Multiple Subsegmental Pulmonary Embolism Without Acute Cor Pulmonale (HCC) # RV Strain - AVSS overnight, no evidence of atrial fibrillation, tachycardia, hypotension - no signs of hemodynamic instability. - Requiring 1-2L supplemental O2 via nasal cannula. Home going oxygen assessment completed by RT - CXR showed small left pleural effusion - CTA showed right subsegmental emboli - Per Vascular Medicine??consult, continue Eliquis??for fdc anticoagulation (see above). Patient will need a 3 month follow up in Thrombophilia Clinic - TTE on 10/03/2021 showed RV strain, no acute concerns from a Vascular Medicine standpoint. ?? # Obstructive Sleep Apnea - Using home CPAP overnight ?? # Upper Respiratory Cough Syndrome - Continue home meds: albuterol, fluticasone, duonebs, Acosta triple nasal spray, singulair, saline rinse PRN - [facility] no concern for intrinsic lower respiratory pathologic process,no further evaluation indicated at this time ?? # Endometrial Cancer - Final pathology results pending - Medical Oncology consult placed - Radiation Oncology consult placed ?? # Oliguria - RESOLVED - UOP??400cc overnight, adequate, patient voiding spontaneously without difficulty ?? Patient was seen by Dr. Koenig, CARTOGRAPHY PROFESSOR Chief Resident, who agrees with plan ?? Please page the reconciliation manager pager,[phone], with any questions or concerns regarding this patient.?? Martinez Rock M.D., M.P.H. EATION ATTENDANT Amanda Sanchez R.R.T., C.R.T., L.R.T. - 10/07/2021 6:01 AM CST RT discussed with nursing staff and they have been informed about the nocturnal home oxygen study. They know that once the patient has fallen asleep to notify the monitoring lab ([id number]) and to place the patient on room air and document it in the flowsheets. After 5 minutes (consecutively or accumulatively) of desaturation below 88% they should receive a call or should call the monitoring lab to confirm within an hour or 2 of starting the study and increase the oxygen by 1 liter. If desaturation continues, the oxygen should be increased accordingly by 1 liter each time. DO NOT REMOVE PATIENT FROM MACHINE UNTIL THE MORNING. RT will check back in with nursing around 5-6 am. End of study note: Patient required 2L of supplemental O2 for the nocturnal oxygen study. Electronically signed by: Diane MoraTYi, C.R.TYi, L.R.T. 10/07/21 6:01 AM RECREATION ATTENDANT EATION ATTENDANT Demar Vergara P.TYi, D.P.T., A.T.C. - 10/06/2021 12:32 PM CST Physical Therapy Inpatient Treatment Note SUBJECTIVE Patient's Name: Nelda Pavon Referring/Attending: Jessy Pineda M.D. Medical Diagnosis: Malignant Neoplasm Of Uterus Endometrial (HCC) [C54.1] Reason for Referral: PT Evaluate and Treat PT evaluate and treat general acute Onset Date: 10/04/21 Payor: MEDICARE / Plan: MEDICARE A AND B / Product Type: Medicare / History of Present Illness: Patient presents in setting of malignant neoplasm of uterus endometrial status post hysterectomy on October 01 2021. She is on heparin for pulmonary embolism. Has been utilizing supplemental oxygen via nasal cannula - today on 1 L Family/Caregiver Present: Yes Patient/Caregiver Goals: Patient would like to get stronger and be and more independent before discharge Patient Comments: Patient agreeable to physical therapy. At end of session, patient and caregiver both agreed with decreased confidence in discharge home at this time. Yet, do understand that there is potential for patient to improve in the next couple days to further increase their confidence. Continued open discussion for dismissal planning Precautions Other Precautions: Abdominal, fall, cancer. Fall Risk (65 and older) Fall in the last 12 months: Yes Did you have an injury with the fall?: No Are you fearful of falling?: Yes OBJECTIVE Sugar's NOHARM modalities were not used during their therapy session. Vitals monitored throughout session; within normal ranges. Treatment consisted of: Bed Mobility - Supine to Sit # of Assistants: 1 Level of Assistance: Supervision/Set-up Device: Head of bed elevated, Bed rail Cuing: Verbal, Tactile Comments: Light tactile assist at upper torso, completed from slightly elevated bed height trying toimitate home environment. Patient continues to rely on bed rail and hospital bed features but tolerates transfer well Bed Mobility - Scooting Level of Assistance: Independent Sit to Stand Transfers # of Assistants: 1 Transfer Surface: Bed, Wheelchair, Toilet/Commode Transfer Equipment: Front wheeled walker, Gait belt, Grab bars(s) Level of Assistance: Supervision/set-up Assessment/Delivery: Instructed, Assessed, Therapist assisted Comments: Verbal cuing to exhale through transfer in order to reduce abdominal pressure and pain. Completed transfer x5 in session from varying heights Stand to Sit Transfers # of Assistants: 1 Transfer Surface: Chair, Bed, Toilet/Commode, Wheelchair Transfer Equipment: Gait belt, Front wheeled walker, Grab bars(s) Level of Assistance: Supervision/set-up Assessment/Delivery: Assessed, Instructed, Therapist assisted Comments: Verbal cuing to exhale during transfer while controlling descent in order to reduce abdominal pressure and pain. Completed transfer x5 in session from varying heights, no physical assist needed Bed, Chair, Wheelchair Transfers # of Assistants: 1 Transfer Surface: Bed, Chair, Wheelchair Transfer Approach: To and from, Ambulating Transfer Equipment: Front wheeled walker Level of Assistance: Supervision/ Set-up Assessment/Delivery: Assessed, Therapist assisted Comments: Assistance with equipment set up and line management- continuous monitoring of patient's response to activity. Toilet Transfers # of Assistants: 1 Transfer Surface: Toilet Transfer Approach: To and from, Ambulating Transfer Equipment: Grab bars, Front wheeled walker Level of Assistance: Supervision/set-up Assessment/Delivery: Assessed, Instructed, Educated, Therapist assisted Toilet Transfers Comments: Patient reliant on grab bars for transfer at this time. Verbal and visualdemonstration of how to utilize front wheeled walker as toilet safety frame for transfers in future session. Gait Assessment/Training Distance (m): 10 m Surface: Even Device: Gait belt, Front-wheeled walker # of Assistants: 1 Level of Assistance: Supervision/Set-up Assessment of Gait: Patient maintains wide base of support, symmetrical stride length, and slower gait speed Cueing Provided: Verbal Training/Intervention: Verbal cuing for breathing reminders and to take breaks as pain manifests- continuous monitoring of patient's response to activity with use of remote pulse ox Response: Patient's SpO2 levels well maintained during ambulation- minimize longer distance ambulation today to conserve energy for stair training Stairs/Curb # Stairs: 12 (12 stairs up and 12 stairs down) Rails: 1 Device: Gait belt, Single point cane # of Assistants: 1 Level of Assistance: Contact guard assistance Stair Navigation Pattern-Ascending: Step-to pattern Stair Navigation Lead Foot-Ascending: Left Stair Navigation Pattern-Descending: Step-to pattern Stair Navigation Lead Foot-Descending: Right Cueing Provided: Verbal, Visual Training/Intervention: Verbal and visual cuing to lead with stronger lower extremity while ascendingand lead with weaker feeling lower extremity well descending. Additional verbal cues to exhale during exertion. Continuous monitoring of patient's response to increased activity with use of remote pulse ox. Response: Patient tolerated stair training well, intermittently required standing rest breaks but capable of completing 12 stairs up and 12 stairs down while maintaining SpO2 levels above 95 on 1 L nasal cannula. Highest heart rate observed was 100 beats per minute. Total time spent upright on the stairs was approximately 12 minutes. Education provided this session: Breathing techniques to minimize pain with transfers; role of physical therapy in the hospital and plan of care The patient/family educated on safe transfer techniques with functional mobility/activity. The following coordination of care occurred today: Patient's nurse was contacted and patient's status was discussed Patient was left in bedside chair at end of session with call light in reach, all needs met and questions answered. Contact monitoring: PPE used during therapy: Therapist was wearing the following PPE throughout entire session: surgicalmask, eye protection and gloves Patient was wearing a mask during therapy session: yes Family member/caregiver present was wearing a mask: yes Outcome Measures [facility] Inpatient Short Form: -[facility] Basic Mobility (V.2) How much help from another person do you currently need???If the patient hasn't done an activity recently, how much help from another person do you think he/she would need if he/she tried? 1. Turning from your back to your side while in a flat bed without using bedrails?: A Little 2. Moving from lying on your back to sitting on the side of a flat bed without using bedrails?: A Little 3. Moving to and from a bed to a chair (including a wheelchair)?: None 4. Standing up from a chair using your arms (e.g., wheelchair, or bedside chair)?: None 5. To walk in hospital room?: None 6. Climbing 3-5 steps with a railing?: A Little -[facility] Basic Mobility (V.2) Raw Score: 21 AM-[facility] Basic Mobility (V.2) Standardized Score: 45.55 Interpretation: Clinicians answer the -[facility] Inpatient Short Form based on observed patient activityand/or clinical judgement (ie. patient can be scored without physically performing each activity) Based on scoring guidelines using the raw score value: Those going to home had an average score of 20.1 Those going home with home care had an average score of 17.9 Those going to SNF had an average score of 14 Those going to IRF had an average score of 13.6 Those going to a LTAC had an average score of 11.5 Assessment Discharge Therapy Needs - PT: Ongoing skilled physical therapy Skilled therapy can include physical therapy provided by home health, outpatient clinic, or a post-acute facility. The location of these services is determined by the patient's care team in partnershipwith patient/family. Level of Care Needed - PT: Assistance with stairs, Physical assistance needed, Assistance with bed mobility, Assistance with transfers (Comment) Equipment Recommended - PT: Front-wheeled walker Barriers to Discharge Home: Current functional status, Fall risk, Inaccessible home environment, Limited caregiver availability Barriers to Discharge Comments: Caregiver continues to work full-time, patient has a decreased activity tolerance, requires assistance with bed mobility/transfers and ongoing fear of falling increasingher risk of falls From a physical therapy perspective, the level of care above has been recommended for Ms. Pavon after hospital discharge. This level of care is based on her functional abilities during today's session.This may change throughout the hospital course and will be updated as appropriate. Clinical Impression of today's session: Patient able to progress well with physical therapy again today, completed a significant increase instairs and required less physical assist for transfers. Patient continues to rely heavily on hospital bed features for bed mobility, and benefits from the assist of another person to improve safety with all mobility/transfers. Patient's SpO2 levels were well maintained throughout session with 1 L nasal cannula, patient also remained relatively asymptomatic throughout activity (intermittent postsurgical pain). Overall, patient is improving but will continue to benefit from further skilled physical therapy to increase activity tolerance, increase independence with mobility/transfers, and ensure safety for discharge. Rehab potential: Ms. Pavon has Good potential to achieve established physical therapy goals within the time frame outlined below. Progress: Progressing toward goals Functional Goals and Timeframes: PT Inpatient Goals PT Goal #1: Patient will perform bed mobility independently without use of hospital bed future usinglogroll technique. PT Goal #1 Status: Progressing PT Goal #2: Patient perform transfers modified independently with use of front wheeled walker. PT Goal #2 Status: Progressing PT Goal #3: Patient will ambulate 30 m with front wheeled walker and management of oxygen as needed. PT Goal #3 Status: Progressing PT Goal #4: Patient will navigate 15 stairs with supervision and use of 1 rail as well as managing oxygen. PT Goal #4 Status: Progressing Plan Treatment Plan: Plan: Continue with current plan PT Frequency: PT Frequency: 6 times per week PT Inpatient Duration : Until goals are met or hospital discharge Requires Inpatient Follow-Up: Yes PT - Next Inpatient Appointment: 10/07/21 PT Plan Comments: 15 stairs to enter home and 2 curb like steps inside house. Continue to monitor O2at lower level to assess need. Also needs to be able to transfer independently as works outside the home. Otherwise consideration of rehab facility due to this and new requirement of oxygen. Treatment interventions may include: Treatment/Interventions: Therapeutic exercise, Therapeutic functional activity, Neuromuscular re-education, Gait training, Self-care/home management EGYPTOLOGIST Visit Trackin Billing: Time Spent with Patient Gait Training (min): 15 min Therapeutic Activity (min): 25 min Total Timed Units (min): 40 min Total Treatment Time (min): 40 min Demar Vergara P.T., Jimbo, A.T.C. EATION ATTENDANT Dorothy Rosales D.O., M.S. - 10/06/2021 3:13 AM CST SUBJECTIVE Ms. Nelda Pavon is a 70 y.o. who is currently 5 Days Post-Op from a abdominal hysterectomy with left salpingo-oophorectomy, omentectomy, bilateral lymphadenectomy. Overnight the patient did not have any acute events and did well. She reports a rough night with about 6 hours of sleep due to her chronic cough and sore throat. Nasal spray meds were ordered, and should be ready for today. Denies any chest pain or shortness of breath. Events over the past 24 hours: - Pain is optimally controlled on Tylenol and Oxycodone. - Tolerating PO without nausea/vomiting - Flatus: yes - Bowel movement: yes - Voiding: yes - Ambulating: yes OBJECTIVE Vital signs reviewed. Vitals: 10/06/21 0720 BP: 150/75 Pulse: 70 Resp: 18 Temp: 36.9 ??C SpO2: 90% Temp (24hrs), Av.8 ??C, Min:36.4 ??C, Max:37.2 ??C Weight change: I/O 10/04 0710/05 0710/06 07 P.O. 1290 880 Total Intake(mL/kg) 1290 (12.2) 880 (8.3) Urine (mL/kg/hr) 1800 (0.7) 1000 (0.4) Stool 0 0 Total Output 1800 1000 Net -510 -120 Unmeasured Stool Occurrence 1 x 1 x PHYSICAL EXAM General: Alert and oriented, in no acute distress. Abdomen: Soft, nondistended. Appropriate tenderness to palpation. Normal bowel sounds. Abdominal midline incision well approximated and well healing. Lower extremities: Nontender, SCDs in place LABORATORY RESULTS Hemoglobin Date Value Ref Range Status 10/05/2021 11.6 11.6 - 15.0 g/dL Final Leukocytes Date Value Ref Range Status 10/05/2021 8.6 3.4 - 9.6 x10(9)/L Final No results found for this visit on 10/01/21 (from the past 72 hour(s)). IMAGING RESULTS, LAST 1 DAY No results found. ASSESSMENT / PLAN Medical Problems Diagnosis List * (Principal) Malignant Neoplasm Of Uterus Endometrial (HCC) Overview Signed 09/05/2021 11:16 AM by Bailee Rocha, RYiNYi Added automatically from request for surgery [id number] Anxiety Generalized Disorder Asthma Mild Persistent (HCC) Bronchospasm Acute Depression Major One Episode Mild (HCC) Gastroesophageal Reflux Disease NOS Sleep Apnea Rhinitis Chronic Loss Hearing Sensorineural Bilateral Morbid Obesity (HCC) Other Psoriasis Morbid Obesity Body Mass Index >= 35 with Comorbid Condition (HCC) Malignant Neoplasm Of Uterus (HCC) Chronic Cough Allergy Penicillin Antibiotic Personal History Multiple Subsegmental Pulmonary Embolism Without Acute Cor Pulmonale (HCC) Status Post: Procedure(s) (LRB): ROBOTIC EXPLORATION (N/A) PELVIC LYMPHADENECTOMY (Right) LYMPHADENECTOMY - PARA -AORTIC (Left) HYSTERECTOMY ABDOMINAL WITH BILATERAL SALPINGO - OOPHORECTOMY (N/A) OMENTECTOMY (N/A) Condition: doing well without problems Diet: Regular adult diet, advance as tolerated Activity: up ad magdaleno, encourge ambulation VTE Prophylaxis: sequential compression device, Continue on 10 mg of Apixaban BID for 10 days for newly diagnosed pulmonary embolism. Bowel Regimen: Senna Drains: None Pain Management: Tylenol, Oxycodone and pain well-controlled on oral pain meds Antibiotics: s/p 24 hours of Ancef/Flagyl Anticipated Disposition: Inpatient while working on achieving routine post- operative milestones ?? # Multiple Subsegmental Pulmonary Embolism Without Acute Cor Pulmonale (HCC) # RV Strain - AVSS overnight, no evidence of atrial fibrillation, tachycardia, hypotension - no signs of hemodynamic instability. - Requiring 1-2L supplemental O2 via nasal cannula. Home going oxygen assessment completed by RT - CXR showed small left pleural effusion - CTA showed right subsegmental emboli - Per Vascular Medicine??consult, discontinue moderate intensity heparin normogram??with plan to transition to DOAC (Eliquis)??for truck terminal manager anticoagulation. Patient will need a 3 month follow up in Thrombophilia Clinic. Heparin level now therapeutic. - TTE on 10/03/2021 showed RV strain, no acute concerns from a Vascular Medicine standpoint. ?? # Obstructive Sleep Apnea - Using home CPAP overnight ?? # Upper Respiratory Cough Syndrome - Continue home meds: albuterol, fluticasone, duonebs, Acosta triple nasal spray, singulair, saline rinse PRN - Per Pulmonology curbside 10/03/2021 no concern for intrinsic lower respiratory pathologic process,no further evaluation indicated at this time ?? # Endometrial Cancer - Final pathology results pending - Medical Oncology consult placed - Radiation Oncology consult placed ?? # Oliguria - RESOLVED - UOP??400cc overnight, adequate, patient voiding spontaneously without difficulty ?? Patient was seen by Dr. Ching, Hand Compositor Fellow who agrees with plan ?? Please page the reconciliation manager pager,[phone], with any questions or concerns regarding this patient.?? Dorothy Rosales D.O., M.S. EATION ATTENDANT Maira Arredondo PYiTGermain - 10/05/2021 3:35 PM CST Physical Therapy Inpatient Treatment Note SUBJECTIVE Patient's Name: Nelda Pavon Referring/Attending: Jessy Pineda M.D. Medical Diagnosis: Malignant Neoplasm Of Uterus Endometrial (HCC) [C54.1] Reason for Referral: PT Evaluate and Treat PT evaluate and treat general acute Onset Date: 10/04/21 Payor: MEDICARE / Plan: MEDICARE A AND B / Product Type: Medicare / History of Present Illness: Patient presents in setting of malignant neoplasm of uterus endometrial status post hysterectomy on October 01 2021. She is on heparin for pulmonary embolism. She is also requiring 1.5 L of oxygen. Patient/Caregiver Goals: Patient has concerns with going home due to 15 stairs to access living room. Patient's also works. Precautions Other Precautions: Abdominal, fall, cancer. Fall Risk (65 and older) Fall in the last 12 months: Yes Did you have an injury with the fall?: No Are you fearful of falling?: Yes OBJECTIVE Sugar's NOHARM modalities were not used during their therapy session. Discussed her current situation and home going concerns, including 15 steps with one rail and 2 curblike steps. Her sister was present for session and assisted as needed. She reports increased pain with tranfers and was given pain meds at the end of the session. Treatment consisted of: Bed Mobility - Sit to Supine Level of Assistance: Minimal assistance Device: Bed rail Cuing: Verbal Comments: She hugs a pillow, uses side lying technique and needed assistance to bring her legs into bed together to minimize abdominal strain. Sit to Stand Transfers Transfer Surface: Chair Transfer Equipment: Front wheeled walker, Gait belt Level of Assistance: Contact guard assistance Assessment/Delivery: Instructed Comments: Cued for hand placement each time Stand to Sit Transfers Transfer Surface: Chair Transfer Equipment: Gait belt, Front wheeled walker Comments: cued to reach back when sitting for eccentric control Gait Assessment/Training Distance (m): 30 m Surface: Even Device: Gait belt, Front-wheeled walker Level of Assistance: Contact guard assistance Assessment of Gait: she takes short strides with flexed posture Cueing Provided: Verbal Training/Intervention: cued to stand upright and to breathe through her nose Response: Gait improved with cues. Minimal shortness of breathe noted Stairs/Curb # Stairs: 3 Curb Assessment: Yes Rails: 1 Device: Gait belt, Single point cane # of Assistants: 1 Level of Assistance: Minimal assistance Stair Navigation Pattern-Ascending: Step-to pattern Stair Navigation Lead Foot-Ascending: Left Stair Navigation Pattern-Descending: Step-to pattern Stair Navigation Lead Foot-Descending: Right Cueing Provided: Verbal, Tactile Stability: no loss of balance Training/Intervention: Cued her for sequence to offload her painful right hip, cane placement, and reminded her to go slow and breathe. Response: She managed 3 steps better than she thought she would, again with minimal shortness of breath. Practiced a curb step with the walker, facing forward. She was able to do this safely with contact guard assistance and cueing for walker placement and sequence. Patient's nurse was contacted and patient's status was discussed Patient was left in bed at end of session with call light in reach, all needs met and questions answered. Contact monitoring: PPE used during therapy: Therapist was wearing the following PPE throughout entire session: surgicalmask and eye protection Outcome Measures [facility] Inpatient Short Form: -[facility] Basic Mobility (V.2) How much help from another person do you currently need???If the patient hasn't done an activity recently, how much help from another person do you think he/she would need if he/she tried? 1. Turning from your back to your side while in a flat bed without using bedrails?: A Little 2. Moving from lying on your back to sitting on the side of a flat bed without using bedrails?: A Little 3. Moving to and from a bed to a chair (including a wheelchair)?: A Little 4. Standing up from a chair using your arms (e.g., wheelchair, or bedside chair)?: A Little 5. To walk in hospital room?: A Little 6. Climbing 3-5 steps with a railing?: A Little -[facility] Basic Mobility (V.2) Raw Score: 18 -[facility] Basic Mobility (V.2) Standardized Score: 41.05 Interpretation: Clinicians answer the -[facility] Inpatient Short Form based on observed patient activityand/or clinical judgement (ie. patient can be scored without physically performing each activity) Based on scoring guidelines using the raw score value: Those going to home had an average score of 20.1 Those going home with home care had an average score of 17.9 Those going to SNF had an average score of 14 Those going to IRF had an average score of 13.6 Those going to a LTAC had an average score of 11.5 Assessment Discharge Therapy Needs - PT: Ongoing skilled physical therapy Skilled therapy can include physical therapy provided by home health, outpatient clinic, or a post-acute facility. The location of these services is determined by the patient's care team in partnershipwith patient/family. Level of Care Needed - PT: Assistance with stairs, Physical assistance needed, Assistance with walking and moving around the home Equipment Recommended - PT: Front-wheeled walker Barriers to Discharge Home: Current functional status, Fall risk, Inaccessible home environment, Limited caregiver availability From a physical therapy perspective, the level of care above has been recommended for Ms. Pavon after hospital discharge. This level of care is based on her functional abilities during today's session.This may change throughout the hospital course and will be updated as appropriate. Clinical Impression of today's session: She is making gradual progress with her transfers, gait and activity tolerance. She was on 2L of O2 throughout the session, and her oxygen level was 97-100% every time it was checked. She was able to do a few stairs safely today with assistance, but needs to be able to do 15 steps to get into her house with a cane and one rail, and 2 curb like steps within her house. Agreed to continue daily PT and see how much progress she can make by Thursday to determine home going plan. Hopefully she can get off of O2 before discharge? She is willing to go to a half-way facility if needed. Rehab potential: Ms. Pavon has Fair potential to achieve established physical therapy goals within the time frame outlined below. Functional Goals and Timeframes: PT Inpatient Goals PT Goal #1: Patient will perform bed mobility independently without use of hospital bed future usinglogroll technique. PT Goal #2: Patient perform transfers modified independently with use of front wheeled walker. PT Goal #3: Patient will ambulate 30 m with front wheeled walker and management of oxygen as needed. PT Goal #4: Patient will navigate 15 stairs with supervision and use of 1 rail as well as managing oxygen. Plan Treatment Plan: Plan: Plan of care initiated PT Frequency: PT Frequency: 6 times per week PT Inpatient Duration : Until goals are met or hospital discharge Requires Inpatient Follow-Up: Yes PT - Next Inpatient Appointment: 10/06/21 PT Plan Comments: Weekend appropriate this patient is likely discharging Thursday or Thursday. Has 15 stairs to enter home and 2 curb like steps inside house. Continue to monitor O2 at lower level to assess need. Also needs to be able to transfer independently as works outside the home. Otherwiseconsideration of rehab facility. Treatment interventions may include: Treatment/Interventions: Therapeutic exercise, Therapeutic functional activity, Neuromuscular re-education, Gait training, Self-care/home management EGYPTOLOGIST Visit Trackin Billing: Time Spent with Patient Gait Training (min): 21 min Therapeutic Activity (min): 13 min Total Timed Units (min): 34 min Total Treatment Time (min): 34 min Maira Arredondo P.T.A. EATION ATTENDANT Dorothy Rosales D.O., M.S. - 10/05/2021 9:58 AM CST SUBJECTIVE Ms. Nelda Pavon is a 70 y.o. who is currently 4 Days Post-Op from a abdominal hysterectomy with left salpingo-oophorectomy, omentectomy, bilateral lymphadenectomy. Overnight the patient did not haveany acute events and did well. She reports that she feels fine today and was able to sleep well overnight with her CPAP machine. She reports that she tires easily, but denies any chest pain or shortness of breath. Events over the past 24 hours: - Pain is well controlled on Tylenol and Oxycodone - Tolerating PO - Flatus: yes - Bowel movement: yes - Denies Nausea/ Vomiting - Voiding: yes - Ambulating: yes OBJECTIVE Vital signs reviewed. Vitals: 10/05/21 1150 BP: 148/66 Pulse: 73 Resp: 20 Temp: 37.2 ??C SpO2: 97% Temp (24hrs), Av ??C, Min:36.9 ??C, Max:37.2 ??C Weight change: I/O 10/03 0710/04 0710/04 0710/05 0710/05 0710/06 0700 P.O. 1440 1290 400 Maintenance IV Continuous Medications 232.5 Intermittent Medications Total Intake(mL/kg) 1672.5 (15.8) 1290 (12.2) 400 (3.8) Urine (mL/kg/hr) 1000 (0.4) 1800 (0.7) Stool 0 Total Output 1000 1800 Net +672.5 -510 +400 Unmeasured Stool Occurrence 1 x PHYSICAL EXAM General: Alert and oriented, in no acute distress. Abdomen: Soft, nondistended. Appropriate tenderness to palpation. Normal bowel sounds. Abdominal incision clean, dry, well approximated, and well healing without signs of erythema, induration, or infection. Lower extremities: Nontender, SCDs in place LABORATORY RESULTS Hemoglobin Date Value Ref Range Status 10/05/2021 11.6 11.6 - 15.0 g/dL Final Leukocytes Date Value Ref Range Status 10/05/2021 8.6 3.4 - 9.6 x10(9)/L Final No results found for this visit on 10/01/21 (from the past 72 hour(s)). IMAGING RESULTS, LAST 1 DAY No results found. ASSESSMENT / PLAN Medical Problems Diagnosis List * (Principal) Malignant Neoplasm Of Uterus Endometrial (HCC) Overview Signed 09/05/2021 11:16 AM by Bailee Rocha, RYiNYi Added automatically from request for surgery [id number] Anxiety Generalized Disorder Asthma Mild Persistent (HCC) Bronchospasm Acute Depression Major One Episode Mild (HCC) Gastroesophageal Reflux Disease NOS Sleep Apnea Rhinitis Chronic Loss Hearing Sensorineural Bilateral Morbid Obesity (HCC) Other Psoriasis Morbid Obesity Body Mass Index >= 35 with Comorbid Condition (HCC) Malignant Neoplasm Of Uterus (HCC) Chronic Cough Allergy Penicillin Antibiotic Personal History Multiple Subsegmental Pulmonary Embolism Without Acute Cor Pulmonale (HCC) Status Post: Procedure(s) (LRB): ROBOTIC EXPLORATION (N/A) PELVIC LYMPHADENECTOMY (Right) LYMPHADENECTOMY - PARA -AORTIC (Left) HYSTERECTOMY ABDOMINAL WITH BILATERAL SALPINGO - OOPHORECTOMY (N/A) OMENTECTOMY (N/A) Condition: doing well without problems Diet: Regular adult diet, advance as tolerated Activity: up ad magdaleno, encourge ambulation VTE Prophylaxis: sequential compression device, on therapeutic heparin for newly diagnosed pulmonaryembolism. Plan to start 10 mg of Apixaban and then discontinue IV Heparin. Bowel Regimen: Senna Drains: None Pain Management: Tylenol, Oxycodone and pain well-controlled on oral pain meds Antibiotics: s/p 24 hours of Ancef/Flagyl Anticipated Disposition: Inpatient while working on achieving routine post- operative milestones # Multiple Subsegmental Pulmonary Embolism Without Acute Cor Pulmonale (HCC) # RV Strain - AVSS overnight, no evidence of atrial fibrillation, tachycardia, hypotension - no signs of hemodynamic instability. - Requiring 1-2L supplemental O2 via nasal cannula. Home going oxygen assessment completed by RT - CXR showed small left pleural effusion - CTA showed right subsegmental emboli - Per Vascular Medicine consult, discontinue moderate intensity heparin normogram with plan to transition to DOAC (Eliquis) for fdc anticoagulation. Patient will need a 3 month follow up in Thrombophilia Clinic. Heparin level now therapeutic. - TTE on 10/03/2021 showed RV strain, no acute concerns from a Vascular Medicine standpoint. ?? # Obstructive Sleep Apnea - Using home CPAP overnight ?? # Upper Respiratory Cough Syndrome - Continue home meds: albuterol, fluticasone, duonebs, Acosta triple nasal spray, singulair, saline rinse PRN - Per Pulmonology curbside 10/03/2021 no concern for intrinsic lower respiratory pathologic process,no further evaluation indicated at this time ?? # Endometrial Cancer - Final pathology results pending - Medical Oncology consult placed - Radiation Oncology consult placed ?? # Oliguria - RESOLVED - UOP 750cc overnight, adequate, patient voiding spontaneously without difficulty Plan of care discussed with Dr. Ching, Hand Compositor Fellow who agrees with plan Please page the reconciliation manager pager,[phone], with any questions or concerns regarding this patient. Dorothy Rosales D.O., M.S. EATION ATTENDANT Krishan Barrientos, Pharm.D., R.Ph. - 10/04/2021 10:24 AM CST Pharmacist Progress Note 70 y.o. female w/ Malignant Neoplasm Of Uterus Endometrial (HCC) s/p ROBOTIC EXPLORATION, PELVIC LYMPHADENECTOMY - Right, LYMPHADENECTOMY - PARA -AORTIC - Left HYSTERECTOMY ABDOMINAL, BSO and OMENTECTOMY on 10/01/2021 Hospital course complicated by provoked PE found 10/02/2021 Relevant PMH: New onset R-Lung PE (10/02/2021), Asthma, CORTES, chronic cough, ROMELIA/depression, GERD OBJECTIVE Home medications: ?? Held: supplements ?? Changed: formulary interchange as indicated ?? Patient own medications: n/a ASSESSMENT / PLAN - Pain comfort goal met - VSS&AF, on NC 1.5 - 4 L/min, may require homegoing oxygen - RoBF achieved and patient had 1440 cc PO intake charted yesterday and patient is on an adult regular diet, appropriate to DC LR IVF which has been stopped for 2 days. Patient continues Milk of Mag and Senokot-S BID, has refused 2 doses of Milk of Mag since 10/02, consider changing to as needed if appropriate - Will discuss with primary team when we plan to transition from UFH gtt to OAc per vasc med Changes to medications anticipated at discharge: Therapeutic anticoagulation with LD for 6 months (Eliquis vs Xarelto) per vasc med Krishan Barrientos, PharmYiD., R.Ph. EATION ATTENDANT Virginia Peck R.R.T., L.R.T. - 10/04/2021 10:01 AM CST 10/04/21 1000 Home Oxygen Assessment Rest/Awake Room Air SpO2 86 Percent Rest/Awake with Oxygen SpO2 94 (1.5L) Exercise/Activity Room Air SpO2 86 Percent Exercise/Activity with Oxygen SpO2 92 Percent (1.5L) Home oxygen assessment done. Oxygen prescription sent to service. Martinez Sheppard M.D., M.P.H. - 10/04/2021 5:46 AM CST SUBJECTIVE 70 y.o. who is currently 3 Days Post-Op. Events over the past 24 hours: - TTE yesterday showed evidence of RV strain with elevated RVSP, mild to moderate RV enlargement without any regional wall motion abnormalities - AFVSS. Required 4L NC overnight - Continued on moderate intensity heparin normogram, now therapeutic - Urine output 350cc overnight, adequate - AM CBC Hgb 10.5, WBC 8.3, Plts 186 This morning Ms. Pavon is feeling well. Her pain is manageable. She has been able to eat and drink small amounts at a time. She is voiding spontaneously without any issues. She has been up to ambulate but tires easily. She denies chest pain and shortness of breath with activity but does note that she feels hot after walking. OBJECTIVE VITAL SIGNS Vital signs reviewed. Temp (24hrs), Av.7 ??C, Min:36.4 ??C, Max:37 ??C Weight change: I/O 10/02 0710/03 0710/03 0710/04 07 P.O. 400 1440 Maintenance IV 136.7 Continuous Medications 232.5 Intermittent Medications 100 Total Intake(mL/kg) 636.7 (6.1) 1672.5 (15.8) Urine (mL/kg/hr) 1025 (0.4) 1000 (0.4) Total Output 1025 1000 Net -388.3 +672.5 PHYSICAL EXAM Vitals reviewed. Wound: covered and clean, dry, intact. Cardiovascular Rate and Rhythm: Normal rate and regular rhythm. Pulmonary Effort: Pulmonary effort is normal. Comments: Diminished breath sounds in the right lower lung field. Minimal crackles in left lower lung field. Abdominal Palpations: Abdomen is soft. SCDs in place. No calf tenderness. LABORATORY RESULTS Hemoglobin Date Value Ref Range Status 10/04/2021 10.5 (L) 11.6 - 15.0 g/dL Final Creatinine, S Date Value Ref Range Status 10/02/2021 0.78 0.59 - 1.04 mg/dL Final Leukocytes Date Value Ref Range Status 10/04/2021 8.3 3.4 - 9.6 x10(9)/L Final No results found for this visit on 10/01/21 (from the past 72 hour(s)). IMAGING RESULTS, LAST 1 DAY DX Abdomen 1 View Result Date: 10/01/2021 Impression: Negative for postoperative purposes. ASSESSMENT / PLAN Medical Problems Diagnosis List * (Principal) Malignant Neoplasm Of Uterus Endometrial (HCC) Overview Signed 09/05/2021 11:16 AM by Bailee Rocha RYiNYi Added automatically from request for surgery [id number] Anxiety Generalized Disorder Asthma Mild Persistent (HCC) Bronchospasm Acute Depression Major One Episode Mild (HCC) Gastroesophageal Reflux Disease NOS Sleep Apnea Rhinitis Chronic Loss Hearing Sensorineural Bilateral Morbid Obesity (HCC) Other Psoriasis Morbid Obesity Body Mass Index >= 35 with Comorbid Condition (HCC) Malignant Neoplasm Of Uterus (HCC) Chronic Cough Allergy Penicillin Antibiotic Personal History Multiple Subsegmental Pulmonary Embolism Without Acute Cor Pulmonale (HCC) Status Post: Procedure(s) (LRB): ROBOTIC EXPLORATION (N/A) PELVIC LYMPHADENECTOMY (Right) LYMPHADENECTOMY - PARA -AORTIC (Left) HYSTERECTOMY ABDOMINAL WITH BILATERAL SALPINGO - OOPHORECTOMY (N/A) OMENTECTOMY (N/A) Condition: doing well with some problems : see below # POD3 after above listed procedures Diet: Regular adult diet, advance as tolerated Activity: up ad magdaleno, encourge ambulation VTE Prophylaxis: sequential compression device, on therapeutic heparin for newly diagnosed pulmonaryembolism Bowel Regimen: Senna and Milk of Mag. Not yet passing flatus Drains: None Pain Management: Tylenol, Oxycodone and pain well-controlled on oral pain meds Antibiotics: s/p 24 hours of zaynab-operative antibiotics Anticipated Disposition: Inpatient while working on achieving routine post- operative milestones # Multiple Subsegmental Pulmonary Embolism Without Acute Cor Pulmonale (HCC) # RV Strain - AVSS overnight, no evidence of atrial fibrillation, tachycardia, hypotension - no signs of hemodynamic instability. - Requiring 2-4L supplemental O2 via nasal cannula. Plan for RT evaluation today for possible homegoing supplemental O2 requirement - CXR showed small left pleural effusion - CTA showed right subsegmental emboli - Per Vascular Medicine consult, patient initiated on moderate intensity heparin normogram with planto transition to DOAC (Eliquis) for fdc anticoagulation. Heparin level now therapeutic - TTE yesterday showed RV strain, will follow up with Vascular Medicine today to discuss follow up for this # Obstructive Sleep Apnea - Using home CPAP overnight # Upper Respiratory Cough Syndrome - Continue home meds: albuterol, fluticasone, duonebs, Acosta triple nasal spray, singulair, saline rinse PRN - Per Pulmonology curbside yesterday, no concern for intrinsic lower respiratory pathologic process,no further evaluation indicated at this time # Endometrial Cancer - Final pathology results pending - Medical Oncology consult placed - Radiation Oncology consult placed # Oliguria - RESOLVED - UOP 350cc overnight, adequate, patient voiding spontaneously without difficulty Martinez Rock M.D., M.P.H. PGY-2 Resident Patient seen with Dr. Pineda, CARTOGRAPHY PROFESSOR ONC Service Control Operator, who agrees with the above plan of care. Please page the [facility] pager, [phone], with any questions or concerns regarding this patient. EATION ATTENDANT Krishan Barrientos, PharmYiDYi, R.Ph. - 10/03/2021 9:50 AM CST Pharmacist Progress Note 70 y.o. female w/ Malignant Neoplasm Of Uterus Endometrial (HCC) s/p ROBOTIC EXPLORATION, PELVIC LYMPHADENECTOMY - Right, LYMPHADENECTOMY - PARA -AORTIC - Left HYSTERECTOMY ABDOMINAL, BSO and OMENTECTOMY on 10/01/2021 Relevant PMH: New onset R-Lung PE (10/02/2021), Asthma, CORTES, chronic cough, ROMELIA/depression, GERD OBJECTIVE Home medications: ?? Held: supplements ?? Changed: formulary interchange as indicated ?? Patient own medications: n/a ASSESSMENT / PLAN - CV/Pulm: VSS@AF (BP soft), still requiring NC@2-5 L/min, as needed MURALI & DuoNebs available, may consider HIM/Pulm consult to optimize patient asthma/CORTES/chronic cough medication if medically appropriate. Noted respiratory therapy has seen patient in regard to B/CPAP settings (typically 2 L/min at home) - Hospital course complicated by new onset PE found 10/02/2021, transitioned from SQH to MIH gtt, typically HIH gtt started for PE/DVT, but in the post-op setting appropriate to start MIH gtt given potential bleed risk per vasc med curbside. Anti-Xa per RN protocol with baseline APTT 30 and first Anti-Xa to goal [0.2 - 0.5] 0.24, next check at noon today, if to goal switch to Q24H checks. B/L Lower extremity US negative for DVT, Await vasc med formal consult recs Changes to medications anticipated at discharge: TBD, Vasc recs Krishan Barrientos Pharm.D., R.Ph. EATION ATTENDANT Martinez Rock M.D., M.P.H. - 10/03/2021 5:59 AM CST SUBJECTIVE 70 y.o. who is currently 2 Days Post-Op. Events over the past 24 hours: - Pulmonology consulted (curbside phone call, formal consult not completed yesterday) due to persistent O2 requirement. CXR showed bibasilar atelectasis, diminished lung volumes bilaterally, and small left pleural effusion. CTA protocol recommended which revealed right segmental PE. - Vascular Medicine consulted, patient initiated on moderate intensity heparin normogram - AFVSS overnight, persistent O2 requirement of 2-4L NC - Urine output 400cc overnight, adequate - AM CBC Hgb 10.7, WBC 10.0, Plts 184 This morning Ms. Pavon is feeling well. She denies any chest of pain or shortness of breath. She hasbeen able to ambulate and sit up in the chair. She is tolerating PO intake and voiding without difficulty. OBJECTIVE VITAL SIGNS Vital signs reviewed. Temp (24hrs), Av.8 ??C, Min:36.6 ??C, Max:36.9 ??C Weight change: I/O 10/01 0710/02 0710/02 0710/03 0700 P.O. 400 400 Colloid Bolus 250 Maintenance IV 4035.7 136.7 Intermittent Medications 500 100 Total Intake(mL/kg) 5185.7 (49.9) 636.7 (6.1) Urine (mL/kg/hr) 1502 (0.6) 900 (0.4) Emesis or Enteric Tube 20 Blood 300 Total Output 1822 900 Net +3363.7 -263.3 PHYSICAL EXAM Vitals reviewed. Wound: covered and clean, dry, intact. Cardiovascular Rate and Rhythm: Normal rate and regular rhythm. Pulmonary Comments: Diminished breath sounds in the right lower lung field. Minimal crackles in left lower lung field. Abdominal Palpations: Abdomen is soft. SCDs in place. No calf tenderness. LABORATORY RESULTS Hemoglobin Date Value Ref Range Status 10/03/2021 10.7 (L) 11.6 - 15.0 g/dL Final Creatinine, S Date Value Ref Range Status 10/02/2021 0.78 0.59 - 1.04 mg/dL Final Leukocytes Date Value Ref Range Status 10/03/2021 10.0 (H) 3.4 - 9.6 x10(9)/L Final No results found for this visit on 10/01/21 (from the past 72 hour(s)). IMAGING RESULTS, LAST 1 DAY DX Abdomen 1 View Result Date: 10/01/2021 Impression: Negative for postoperative purposes. ASSESSMENT / PLAN Medical Problems Diagnosis List * (Principal) Malignant Neoplasm Of Uterus Endometrial (HCC) Overview Signed 09/05/2021 11:16 AM by Bailee Rocha RYiN. Added automatically from request for surgery [id number] Anxiety Generalized Disorder Asthma Mild Persistent (HCC) Bronchospasm Acute Depression Major One Episode Mild (HCC) Gastroesophageal Reflux Disease NOS Sleep Apnea Rhinitis Chronic Loss Hearing Sensorineural Bilateral Morbid Obesity (HCC) Other Psoriasis Morbid Obesity Body Mass Index >= 35 with Comorbid Condition (HCC) Malignant Neoplasm Of Uterus (HCC) Chronic Cough Allergy Penicillin Antibiotic Personal History Status Post: Procedure(s) (LRB): ROBOTIC EXPLORATION (N/A) PELVIC LYMPHADENECTOMY (Right) LYMPHADENECTOMY - PARA -AORTIC (Left) HYSTERECTOMY ABDOMINAL WITH BILATERAL SALPINGO - OOPHORECTOMY (N/A) OMENTECTOMY (N/A) Condition: doing well with some problems : see below # POD2 after above listed procedures Diet: Regular adult diet, advance as tolerated Activity: up ad magdaleno, encourge ambulation VTE Prophylaxis: sequential compression device, on therapeutic heparin for newly diagnosed pulmonaryembolism Bowel Regimen: Senna and Milk of Mag. Not yet passing flatus Drains: None Pain Management: Tylenol, Oxycodone and pain well-controlled on oral pain meds Antibiotics: s/p 24 hours of zaynab-operative antibiotics Anticipated Disposition: Inpatient while working on achieving routine post- operative milestones # Multiple Subsegmental Pulmonary Embolism Without Acute Cor Pulmonale (HCC) - Requiring 2-4L supplemental O2 via nasal cannula - Patient initiated on prophylactic heparin immediately post-op per protocol and has had SCDs in place while in bed, encouraging frequent ambulation - CXR showed small left pleural effusion - CTA showed right subsegmental emboli - Per Vascular Medicine curbside overnight, patient initiated on moderate intensity heparin normogram - Vascular Medicine consult today, appreciate recommendations for truck terminal manager anticoagulation management # Obstructive Sleep Apnea - Using home CPAP overnight # Upper Respiratory Cough Syndrome - Continue home meds: albuterol, fluticasone, duonebs, Acosta triple nasal spray, singulair, saline rinse PRN - Per Pulmonology curbside yesterday, no concern for intrinsic lower respiratory pathologic process,no further evaluation indicated at this time # Endometrial Cancer - Final pathology results pending - Medical Oncology consult placed - Radiation Oncology consult placed # Oliguria - RESOLVED - UOP 400cc overnight, adequate, patient voiding spontaneously without difficulty Martinez Rock M.D., M.P.H. PGY-2 Resident Patient seen with Dr. Pineda, CARTOGRAPHY PROFESSOR ONC Service Control Operator, who agrees with the above plan of care. Please page the [facility] Service pager, [phone], with any questions or concerns regarding this patient. EATION ATTENDANT Dale Welsh M.D. - 10/02/2021 10:22 PM CST Was contacted by on-call Radiology about patient's imaging results. CT PE protocol was performed tonight and did show a small subsegmental PE in the right lung measuring approximately 1.8 cm. At this time, patient remains asymptomatic and overall hemodynamically stable. Vascular medicine wascurbsided and I was able to get into contact with Dr. Robbie Allen, Vascular Medicine consult. After review of patient's history, active cancer, and recent procedure, moderate intensity heparin nomogram was recommended and was ordered accordingly. Plan for formal vascular medicine consult during the day. Venous dopplers of the bilateral lower extremities have been ordered to assess the degree of clot burden. Per Dr. Allen, this can be done on nonemergent basis, so will plan for this to be performed 1st thing in the morning during regular business hours. Low threshold to reassess patient or contact vascular medicine again tonight with any change in clinical status. Dr. Martín Ridley, on-call Hand Compositor Fellow, is aware and is in agreement with the above plan of care. Nimesh Welsh M.D. EATION ATTENDANT Eh Isaac - 10/02/2021 1:13 PM CST Encounter: Spiritual Care Support Situation: Mrs. Pavon had an hysterectomy yesterday. She was told that the cancer had spread in someother areas but chemo or radiation would take care of the rest. Family: Heath was present. Mrs. Pavon is well surrounded by friends and family for support. Anitha Tradition: Bahai- She mentioned having so much peace going into the surgery knowing that God was with her. She has bible study with her family which helps her tremendously. She is reading the book of Job right now; she feels like she relates. Prayer: A prayer was offered and welcomed. Plan: Will remain available for spiritual care as needed or requested. Chaplains can be contacted bypaging [phone] (Yarsanism). EATION ATTENDANT Krishan Barrientos, D., R.Ph. - 10/02/2021 8:19 AM CST Pharmacist Progress Note 70 y.o. female w/ Malignant Neoplasm Of Uterus Endometrial (HCC) s/p ROBOTIC EXPLORATION, PELVIC LYMPHADENECTOMY - Right, LYMPHADENECTOMY - PARA -AORTIC - Left HYSTERECTOMY ABDOMINAL, BSO and OMENTECTOMY on 10/01/2021 Relevant PMH: Asthma, CORTES, chronic cough, ROMELIA/depression, GERD OBJECTIVE Home medications: ?? Held: supplements ?? Changed: formulary interchange as indicated ?? Patient own medications: n/a ?? Prophylaxis: SQH 5000 Q8H Wt 104 kg BMI 38.75 kg/m?? ASSESSMENT / PLAN - Patient to remain inpatient due to oxygen needs, possibly due to being edematous/fluid overloaded in the zaynab-op setting - Clarified patients allergy to diclofenac, she has avoided all other NSAIDs including OTC ibuprofen/naproxen since she broke out in hives all over her body from taking diclofenac. Will update her allergy to reflect her avoidance of other NSAIDs Changes to medications anticipated at discharge: TBD Krishan Barrientos Pharm.D., R.Ph. EATION ATTENDANT Martinez Rock M.D., M.P.H. - 10/02/2021 5:17 AM CST SUBJECTIVE 70 y.o. who is currently 1 Day Post-Op. Events over the past 24 hours: - Recovered in PACU prior to transfer to floor cares, minimal emesis in PACU that has since resolved - Increasing oxygen requirement overnight while using home CPAP, currently on 5L NC. Otherwise AFVSS - Urine output 342cc overnight, borderline - Pain controlled with tylenol, oxycodone, IV dilaudid (required this yesterday PM however none so far today) - Tolerated PO intake - AM labs show Hgb 11.7, WBC 11.1, Cr 0.78 This morning Ms. Pavon is doing well. She does report pain but this has been tolerable and is improved with medications. She denies nausea. She was able to ambulate around the floor once so far today but did have some dizziness with this. She has been able to drink and eat a small amount. OBJECTIVE VITAL SIGNS Vital signs reviewed. Temp (24hrs), Av.7 ??C, Min:36.5 ??C, Max:37.1 ??C Weight change: I/O 09/30 0710/01 0710/01 0710/02 0700 Colloid Bolus 250 Maintenance IV 3802 Intermittent Medications 400 Total Intake(mL/kg) 4452 (42.8) Urine (mL/kg/hr) 1502 (0.6) Emesis or Enteric Tube 20 Blood 300 Total Output 1822 Net +2630 PHYSICAL EXAM Vitals reviewed. Wound: covered and clean, dry, intact. Cardiovascular Rate and Rhythm: Normal rate and regular rhythm. Pulmonary Effort: Pulmonary effort is normal. Breath sounds: Normal breath sounds. No wheezing or rales. Abdominal General: There is distension. Palpations: Abdomen is soft. SCDs in place. LABORATORY RESULTS Hemoglobin Date Value Ref Range Status 10/02/2021 11.7 11.6 - 15.0 g/dL Final Creatinine, S Date Value Ref Range Status 10/02/2021 0.78 0.59 - 1.04 mg/dL Final Leukocytes Date Value Ref Range Status 10/02/2021 11.1 (H) 3.4 - 9.6 x10(9)/L Final No results found for this visit on 10/01/21 (from the past 72 hour(s)). IMAGING RESULTS, LAST 1 DAY DX Abdomen 1 View Result Date: 10/01/2021 Impression: Negative for postoperative purposes. ASSESSMENT / PLAN Medical Problems Diagnosis List * (Principal) Malignant Neoplasm Of Uterus Endometrial (HCC) Overview Signed 09/05/2021 11:16 AM by Bailee Rocha R.N. Added automatically from request for surgery [id number] Anxiety Generalized Disorder Asthma Mild Persistent (HCC) Bronchospasm Acute Depression Major One Episode Mild (HCC) Gastroesophageal Reflux Disease NOS Sleep Apnea Rhinitis Chronic Loss Hearing Sensorineural Bilateral Morbid Obesity (HCC) Other Psoriasis Morbid Obesity Body Mass Index >= 35 with Comorbid Condition (HCC) Malignant Neoplasm Of Uterus (HCC) Chronic Cough Allergy Penicillin Antibiotic Personal History Status Post: Procedure(s) (LRB): ROBOTIC EXPLORATION (N/A) PELVIC LYMPHADENECTOMY (Right) LYMPHADENECTOMY - PARA -AORTIC (Left) HYSTERECTOMY ABDOMINAL WITH BILATERAL SALPINGO - OOPHORECTOMY (N/A) OMENTECTOMY (N/A) Condition: doing well with some problems : see below # POD1 after above listed procedures Diet: Regular adult diet, advance as tolerated Activity: up ad magdaleno, encourge ambulation VTE Prophylaxis: sequential compression device and Heparin SQ 5,000 units TID Bowel Regimen: Senna and Milk of Mag Indwelling Urethral Catheter: Catheter removed this AM and patient passed a voiding trial Drains: None Pain Management: Tylenol, Oxycodone and pain well-controlled on oral pain meds Antibiotics: Continue 24 hours of zaynab-operative antibiotics Anticipated Disposition: Inpatient while working on achieving routine post- operative milestones # Oliguria - Urine output 342cc overnight after robust urine output intra-op (>1L) - Cr this AM within normal limits - Noted significant tissue edema intra-op, suspect third spacing secondary to prolonged open abdominal surgery. Continue to monitor UOP closely # Obstructive Sleep Apnea - Using home CPAP overnight - Required up to 5L NC while sleeping, 4L while ambulating. Currently on 2L NC. - If patient is still requiring supplemental O2 this afternoon will consider Pulmonology consult given recent respiratory issues (see below) # Upper Respiratory Cough Syndrome - Continue home meds: albuterol, fluticasone, duonebs, Acosta triple nasal spray, singulair, saline rinse PRN # Endometrial Cancer - Final pathology results pending - Medical Oncology consult placed - Radiation Oncology consult placed Martinez Rock M.D., M.P.H. PGY-2 Resident Patient seen with Dr. Pineda, CARTOGRAPHY PROFESSOR ONC Service Control Operator, who agrees with the above plan of care. Please page the [facility] Service pager, [phone], with any questions or concerns regarding this patient. EATION ATTENDANT Dale Welsh M.D. - 10/01/2021 10:39 PM CST At patient bedside for routine post-operative evaluation. SUBJECTIVE Nelda Pavon is a 70 y.o. who is POD#0 status post Procedure(s) (LRB): ROBOTIC EXPLORATION (N/A) PELVIC LYMPHADENECTOMY (Right) LYMPHADENECTOMY - PARA -AORTIC (Left) HYSTERECTOMY ABDOMINAL WITH BILATERAL SALPINGO - OOPHORECTOMY (N/A) OMENTECTOMY (N/A). Procedure was uncomplicated. Void trial was attempted earlier in the evening, required a lot of RN assistance to get patient up and then patient felt dizzy and immediately had to getback into bed. Pain is improving, it is currently at 4 out of 10. She has been able to tolerate bothsolid and liquid p.o. without any nausea or vomiting. She has not yet ambulated and her mi is still in place. OBJECTIVE Vitals: 10/01/21 1830 10/01/21 1910 10/01/21200910/01/21 2120 BP: (!) 116/41 (!) 107/45 (!) 114/46 134/58 BP Location: Right arm;Upper Right arm;Upper Right arm;Upper Right arm;Upper Patient Position: Lying Semi-recumbent Semi-recumbent Pulse: 71 69 69 67 Resp: 18 18 18 18 Temp: 36.5 ??C 36.5 ??C 36.5 ??C 36.9 ??C TempSrc: Oral Oral Oral Axillary SpO2: 93% 94% 93% 94% Weight: Height: General: No acute distress. Resp: Normal work of breathing on room air Abd: Soft, nondistended, appropriately tender to palpation. Incisions are covered with dressing at this time, no abnormal drainage or shadowing. : Mi draining clear yellow urine. Ext: SCDs in place ?? ASSESSMENT/PLAN #1 Malignant Neoplasm Of Uterus Endometrial (HCC) Appropriate post-op evaluation. We briefly reviewed the surgical findings. We discussed post-op recovery goals for tonight including multimodal analgesia for pain control, nausea control, and advancingPO intake and ambulation as tolerated. Plan to follow up AM labs. Low threshold to reassess with any concerning change in clinical status. Will defer void trial until tomorrow morning. Nimesh Welsh M.D. EATION ATTENDANT Alina Fernandez R.R.T., L.R.T. - 10/01/2021 9:34 PM CST Non-Invasive Support: BPAP/CPAP Interface: Under the nose cushion Patient's Own Equipment: Mask, Tubing, CPAP, Patient able to manage equipment on own, Equipment inspected (per site policy) BPAP/CPAP Mode: Per Home Settings 2L bleed in Patient states device is working properly. Humidifier refilled with water. Please contact RT if helpis needed in the future. She states that she is independent with her PAP. Electronically signed by: Fadia Fernandez R.R.T., L.R.T. 10/01/21 9:35 PM RECREATION ATTENDANT EATION ATTENDANT Humaira Fang PharmYiD., R.Ph. - 10/01/2021 6:42 PM CST Images from the original note were not included. Pharmacist Progress Note Reason for admission: endometrial cancer s/p robotic exploration, right pelvic lymphadenectomy, leftpara-aortic lymphadenectomy, abdominal hysterectomy, bilateral salpingo-oophorectomy, omentectomy on10/01/21 PMH: asthma, depression/anxiety, GERD OBJECTIVE Admission Medication History Note Adherence issues: No concerns Medication list source: Patient and Pharmacy or dispense records Medication related information: N/A Prior to Admission Medications Med List Status: Pharmacy/RN Complete Set By: Humaira Fang, PharmYiD., R.Ph. at 10/01/2021 6:42 PM Taking? Last Dose Informant Start Date End Date LT albuterol 2.5 mg /3 mL nebulizer solution 10/01/2021 08/10/17 -- Inhale 2.5 mg every 4 (four) hours as needed for wheezing. albuterol 90 mcg/actuation inhaler Unknown 08/22/19 -- Inhale 2 puffs every 4 (four) hours as needed for wheezing. calcium carbonate (CALCIUM 600 ORAL) 09/30/2021 -- -- Take 1 tablet by mouth 2 (two) times a day. cetirizine (ZyrTEC) 10 mg tablet 09/30/2021 07/12/10 -- Take 1 tablet by mouth daily. cholecalciferol, vitamin D3, (VITAMIN D3 ORAL) 09/30/2021 -- -- Take 1 tablet by mouth every morning. CRANBERRY ORAL 09/30/2021 -- -- Take 1 tablet by mouth every morning. ferrous sulfate 325 mg (65 mg iron) tablet 09/30/2021 -- -- Take 325 mg by mouth every other day. fluticasone propionate (FLONASE) 50 mcg/actuation nasal spray 10/01/2021 02/07/21 -- Administer 2 sprays into nostril(s) 2 (two) times a day. ipratropium-albuteroL (DUONEB) 0.5-2.5 mg/3 mL nebulizer solution Unknown 07/30/17 -- Inhale 3 mL every 6 (six) hours as needed for wheezing or shortness of breath. mometasone 0.033 %-ipratropium 0.02 %-diphenhydramine 0.033 % nasal spray 10/01/2021 09/16/21 -- Administer 2 sprays into each nostril 2 (two) times a day. Shake very well prior to each use. montelukast (SINGULAIR) 10 mg tablet 09/30/2021 11/29/20 -- Take 1 tablet by mouth at bedtime. omeprazole (PriLOSEC) [address] capsule 10/01/2021 07/20/11 -- Take 20 mg by mouth every morning before breakfast. sertraline (ZOLOFT) 100 mg tablet 10/01/2021 03/28/21 -- Take 100 mg by mouth every morning. SODIUM CHLORIDE NASAL -- -- Administer into nostril(s) 2 (two) times a day. Nasal irrigation before triple spray Home medications: Held: supplements Changed: none Prophylaxis: subcutaneous heparin (dose appropriate for weight/BMI) ASSESSMENT / PLAN Continue enhanced recovery protocol. No changes recommended at this time Changes to medications anticipated at discharge: TBD Shamika Fang PharmStevan, R.Ph. EATION ATTENDANT documented in this encounter Consult Notes Devin Huber M.S.N., R.N. - 10/07/2021 12:01 PM CSTAssociated Order(s): IP CONSULT TO CARE MANAGEMENT; IP CONSULT TO CARE MANAGEMENT Discharge Planning Assessment SUBJECTIVE Referral Data Referral Source: Provider/Service Referral Name: [facility] Planning-Home oxygen Referral Reason: DME, Discharge Planning Discharge Planning: Early screen discharge Who was present during the interview?: Patient Clean Up Worker Services Used: No Patient Information Primary Caregiver: Self Accompanied by/Relationship: None Spiritism/Cultural Factors: None Primary Nurse Name/Number: NA Dietitian Name/Number: NA Diet/Texture: By mouth Legal Information Legal Decision Maker: Self Advance Directives Status: Not Activated Involuntary Hold: NA Legal Status (ARZ Excluded): Voluntary Caregiver Information Caregiver Name: Jose Antonio Caregiver Relationship: Caregiver (Mobile) Caregiver [address] [address] [place], [place] [id number] Services Requested Physical Therapy Frequency: NA Occupational Therapy Frequency: NA Discharge Potential: Home with spouse Rehab Potential: NA OBJECTIVE Functional Status (ADLs) Assistive Devices: Walker, Wheelchair, Eyeglasses Level of Assistance: Independent Dressing: Independent Feeding: Independent Bathing: Independent Grooming: Independent Toileting: Independent Transfer to/from Bed, Chair Etc.: Independent Mobility: Independent Meal Prep: Independent Medication Setup/Administration: Independent Telephone Use: Independent Housekeeping: Independent Shopping: Independent Managing Finances: Independent Behavior: Oriented Communication: Appropriate to age/development Environmental Supports Home Environment: House Care Facility Name: NA Anticipated Modifications to the Patient's Home: Handrails, Grab Bars Anticipated Needs/Assistive Devices ADL Anticipated Needs: Mobility, Transportation Use (drive car, use taxi/bus) Equipment Anticipated Needs: None Transportation Needs: Independent to drive, Support from family Finance/Insurance Primary insurance: MEDICARE A AND B Secondary insurance: [employer] Does the Patient have any Financial Concerns?: No Income Source: Social security, Employed Income/Expense Information: Income meets expenses Discharge Planning Barriers To Discharge: None Strengths: Support of immediate family, Support of extended family/friends, Attitude of self, Ability to acquire knowledge Type of Residence: Private residence Support Systems: Spouse, Children, Friends/neighbors Assistance Recommended after Discharge: None Home Care Services: No Anticipated Discharge Destination: Home or Self Care Does the patient need discharge transport arranged?: No ASSESSMENT / PLAN Assessment: The pastrycook met with Nelda Pavon to discuss her current hospitalization and home going needs. The patient was unaccompanied. The patient was a reliable historian. The role of pastrycook was reviewed. The patient reviewed her prior level of care and support system. The patient receives support from her . The patient described her living environment as a multiple level home with stairs to enter with rails. Housekeeping, grocery shopping, meal prep, and other household responsibilities have previously been completed by patient. pastrycook discussed the patient's potential needs at dismissal based on their home setting, previous needs and responsibilities, homebound status, and relevant assessmentswith the patient. The patient will be safe and supported to return home with spouse/S.O. when medically ready. Support will be provided by [employer]. The patient demonstrated understanding when discussing her home going plans and anticipated needs. Patient stated she lives in an older home that was remodeled. The best entrance for her is through the sub-garage, and up to the house. Once in the house, there are limited steps, but to come up from the garage is narrow and 15 steps. It does have a rail, but she is worried about this. PT/OT is working with her. She and her live alone, and he works in construction/appraisal. She will be home alone for many hours and this also worries her. She does realize that once she is in the house proper, she will not have to negotiate that many obstacles. We discussed Life Alert type necklaces. I suggested buying a few Tabulous Cloud dots. These can be usedto make phone calls if patient is unable to get to a phone. Suggestions were made to have one or several people call her during the day to check on her status. After further discussion, patient felt better about going home. I will arrange home oxygen also. At this time, the care team anticipates the patient will potentially require the following new service(s) to be set up: oxygen. After reviewing the patient's chart and meeting with the patient, the pastrycook deemed the LACE+/readmission questions were not necessary. The patient reports understanding that she will dismiss from the hospital TODAY 10/07/2021. Pending hospital course and medical readiness, no barriers to dismissal have been identified at this time. Plan: The patient agrees with the following plan. 1. Patient's anticipated discharge disposition is: Home to Self Care 2. Transportation upon dismissal will be provided by family--Heath. 3. pastrycook recommended nothing at this time. 4. pastrycook provided information regarding the dismissal process and the Senior Linkage Line ([place] Board on Aging) handout. 5. pastrycook placed or requested the following hospital-based consult orders and/or referrals:None. 6. pastrycook will continue to assess for homegoing needs with the interdisciplinary team. 7. pastrycook encouraged the patient to reach out with any questions/concerns. Care Management will continue to follow. Home oxygen will be provided by: Durable Medical Equipment - Admitted Since 10/01/2021 Service Provider Selected Services Address Phone Fax Patient Preferred Risk Management Solution Durable Medical Equipment [phone] [facility] , [facility] [id number] [phone] -- Contact: Intake Portable tanks for transport to be delivered to the patient???s room prior to dismissal. Concentrator to be delivered and set up at patient???s home. NURSING: - Fax prescription to oxygen provider. - Fax any necessary clinical documentation supporting oxygen need including After Visit Summary andDME justification. - Arrange initial oxygen delivery to home. PRIMARY SERVICE: - Review and sign oxygen prescription and supporting documentation including After Visit Summary and DME justification prior to patient???s dismissal. CASE MANAGEMENT: - Will continue to follow. Signed by: Marilyn Quiñones, R.N. 10/07/2021 EATION ATTENDANT Amanda Centeno P.T., D.P.T. - 10/04/2021 10:18 AM CST Physical Therapy Inpatient Evaluation/Treatment SUBJECTIVE Patient's Name: Nelda Pavon Referring/Attending Provider: Jessy Pineda M.D. Medical Diagnosis: Malignant Neoplasm Of Uterus Endometrial (HCC) [C54.1] Reason for Referral: PT Evaluate and Treat PT evaluate and treat general acute Onset Date: 10/04/21 Payor: MEDICARE / Plan: MEDICARE A AND B / Product Type: Medicare / PERTINENT MEDICAL / SURGICAL HISTORY: Patient Active Problem List Diagnosis ??? Anxiety Generalized Disorder ??? Asthma Mild Persistent (HCC) ??? Bronchospasm Acute ??? Depression Major One Episode Mild (HCC) ??? Gastroesophageal Reflux Disease NOS ??? Sleep Apnea ??? Rhinitis Chronic ??? Loss Hearing Sensorineural Bilateral ??? Morbid Obesity (HCC) ??? Other Psoriasis ??? Malignant Neoplasm Of Uterus Endometrial (HCC) ? ? Morbid Obesity Body Mass Index >= 35 with Comorbid Condition (HCC) ??? Malignant Neoplasm Of Uterus (HCC) ??? Chronic Cough ??? Allergy Penicillin Antibiotic Personal History ??? Multiple Subsegmental Pulmonary Embolism Without Acute Cor Pulmonale (HCC) Past Surgical History: Procedure Laterality Date ??? APPENDECTOMY ??? BUNIONECTOMY Left ??? CERVICAL CONIZATION W/ LASER ??? CYSTECTOMY OVARIAN ??? DILATION AND CURETTAGE, DIAGNOSTIC / THERAPEUTIC 07/11/2021 ??? EYE SURGERY Bilateral cataract ??? HERNIA REPAIR Femoral ??? HYSTERECTOMY ABDOMINAL WITH SALPINGO - OOPHORECTOMY N/A 10/01/2021 Procedure: HYSTERECTOMY ABDOMINAL WITH BILATERAL SALPINGO - OOPHORECTOMY; Surgeon: Brianna Pineda M.D.; Location: [facility] ??? HYSTEROSCOPY 07/11/2021 ??? LYMPHADENECTOMY - PELVIS OR AORTIC Left 10/01/2021 Procedure: LYMPHADENECTOMY - PARA -AORTIC; Surgeon: Jessy Pineda M.D.; Location: [facility] ??? LYMPHADENECTOMY PELVIC Right 10/01/2021 Procedure: PELVIC LYMPHADENECTOMY; Surgeon: Jessy Pineda M.D.; Location: [facility] ??? OMENTECTOMY N/A 10/01/2021 Procedure: OMENTECTOMY; Surgeon: Jessy Pineda M.D.; Location: [facility] ??? PELVIC LAPAROSCOPY No surgical intervention ??? RHINOPLASTY ??? ROBOTIC-ASSISTED ABDOMINAL EXPLORATION N/A 10/01/2021 Procedure: ROBOTIC EXPLORATION; Surgeon: Jessy Pineda M.D.; Location: [facility] ??? TONSILLECTOMY ??? TONSILLECTOMY AND ADENOIDECTOMY ??? URETHRAL SLING 07/11/2021 History of Present Illness: Patient presents in setting of malignant neoplasm of uterus endometrial status post hysterectomy on October 01 2021. She is on heparin for pulmonary embolism. She is also requiring 3 L of oxygen. 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 Prior Mobility/Functional Transfers Level of [place]: Independent Home Equipment Home Adaptive Equipment: None Home Living Type of Home: House Home Layout: Other (comment) Home Layout Comments: Fifteen stairs to enter main level. Home Access: Stairs to enter with rails Entrance Stairs: Rails: Right Entrance Stairs: Number of Steps: 15 Family/Caregiver Present: No Patient/Caregiver Goals: Patient has concerns with going home due to 15 stairs to access living room. Patient's also works. Patient Comments: 3/10 pain in her abdomen which worsens with movement. RN is aware. Patient is agreeable to work with therapy this morning. Precautions Other Precautions: Abdominal, fall, cancer. Fall Risk (65 and older) Fall in the last 12 months: Yes Did you have an injury with the fall?: No Are you fearful of falling?: Yes OBJECTIVE Vision/Sensation Basic Assessment Light Touch: No deficits General ROM / Strength Screening ROM - Upper Extremity Screen: Addressed, no concerns noted ROM - Lower Extremity Screen: Addressed, no concerns noted Strength - Upper Extremity Screen: Addressed, no concerns noted Strength - Lower Extremity Screen: Addressed, no concerns noted Bed Mobility - Supine to Sit # of Assistants: 1 Level of Assistance: Supervision/Set-up Device: Head of bed elevated, Bed rail Cuing: Verbal Comments: Cues for log roll technique. Patient does rely on hospital bed features. Sit to Stand Transfers # of Assistants: 1 Transfer Surface: Bed Transfer Equipment: Front wheeled walker Level of Assistance: Supervision/set-up Assessment/Delivery: Educated, Instructed Comments: To use front wheeled walker. To stand slowly and assess if she is dizzy. Patient is not dizzy at this time. Stand to Sit Transfers # of Assistants: 1 Transfer Surface: Chair Transfer Equipment: Gait belt, Front wheeled walker Level of Assistance: Supervision/set-up Assessment/Delivery: Educated, Therapist assisted Comments: Cues to reach back and sit slowly in chair. Balance Static Sitting-Balance: Good (Maintains balance without support) Dynamic Sitting-Balance: Good (Maintains balance without support) Static Standing-Balance: Good (Maintains balance without support) Dynamic Standing-Balance: Fair (Maintains balance with handheld/contact guard assistance) Gait Assessment/Training Distance (m): 10 m Surface: Even Device: Gait belt, Front-wheeled walker # of Assistants: 1 Level of Assistance: Minimal assistance Quality/Pattern: Guarding, Shuffling Stability: Good stability with front wheeled walker. Would not recommend ambulating without assistive device at this time. Assessment of Gait: Slow and guarded. Patient does have increase in abdominal pain as she goes to stand straight. Cueing Provided: Verbal, Tactile Training/Intervention: Therapist and respiratory therapist manages IV pole and oxygen line. Min assist at gait belt as well for safety. Cues for upright gaze and even stride length. Response: Fair. Patient was weaned from oxygen per respiratory therapist note. At the end of walk patient did require oxygen as she dipped below 87%. Patient does fatigue quickly. Would not be safe to initiate stairs today. Seated Exercises Seated Exercise - Side Addressed: Bilateral Seated Exercise: Long arc quads Activity Tolerance Endurance: Tolerates 10-20 minutes of activity Activity Tolerance Comments: Patient does become short of breath with walking today. She was undergoing respiratory study weaning from oxygen. Patient's nurse was contacted and patient's status was discussed Patient was left in bed at end of session with call light in reach, all needs met and questions answered. Contact monitoring: PPE used during therapy: Therapist was wearing the following PPE throughout entire session: surgicalmask and eye protection Patient was wearing a mask during therapy session: yes Outcome Measures [facility] Inpatient Short Form: -[facility] Basic Mobility (V.2) How much help from another person do you currently need???If the patient hasn't done an activity recently, how much help from another person do you think he/she would need if he/she tried? 1. Turning from your back to your side while in a flat bed without using bedrails?: A Little 2. Moving from lying on your back to sitting on the side of a flat bed without using bedrails?: A Little 3. Moving to and from a bed to a chair (including a wheelchair)?: A Little 4. Standing up from a chair using your arms (e.g., wheelchair, or bedside chair)?: A Little 5. To walk in hospital room?: A Little 6. Climbing 3-5 steps with a railing?: A Lot -[facility] Basic Mobility (V.2) Raw Score: 17 -[facility] Basic Mobility (V.2) Standardized Score: 39.67 Interpretation: Clinicians answer the -[facility] Inpatient Short Form based on observed patient activityand/or clinical judgement (ie. patient can be scored without physically performing each activity) Based on scoring guidelines using the raw score value: Those going to home had an average score of 20.1 Those going home with home care had an average score of 17.9 Those going to SNF had an average score of 14 Those going to IRF had an average score of 13.6 Those going to a LTAC had an average score of 11.5 Assessment Discharge Therapy Needs - PT: Ongoing skilled physical therapy Skilled therapy can include physical therapy provided by home health, outpatient clinic, or a post-acute facility. The location of these services is determined by the patient's care team in partnershipwith patient/family. Level of Care Needed - PT: Assistance with stairs, Physical assistance needed, Assistance with walking and moving around the home Equipment Recommended - PT: Front-wheeled walker Barriers to Discharge Home: Current functional status, Fall risk, Inaccessible home environment, Limited caregiver availability Clinical Impression of today's session: Currently, patient presents with impairments including limited activity tolerance, impaired dynamic balance, new oxygen requirement, abdominal pain resulting in the following functional deficits: requires assistance for ambulation and use of front wheeled walker; would not be safe to attempt stairs today (patient has 15 to gain and train to home). Patient also voices concern about limited caregiver ability as her works outside of the home. She will benefit from ongoing rehab at this time as she is the lower functional baseline. She was independent and not requiring oxygen before this hospita lization. Rehab potential: Ms. Pavon has Fair potential to achieve established physical therapy goals within the time frame outlined below. Tiered PT Evaluation Codes: Comorbid Conditions: Cancer, Cardiopulmonary disease, Obesity Personal Factors: Age, Body habitus, Balance impairment, History of falls, Needs assistive device, Living situation Examination elements: 3 Clinical Presentation: Evolving Clinical Decision Making: Moderate complexity clinical decision making Functional Goals: PT Inpatient Goals PT Goal #1: Patient will perform bed mobility independently without use of hospital bed future usinglogroll technique. PT Goal #2: Patient perform transfers modified independently with use of front wheeled walker. PT Goal #3: Patient will ambulate 30 m with front wheeled walker and management of oxygen as needed. PT Goal #4: Patient will navigate 15 stairs with supervision and use of 1 rail as well as managing oxygen. Plan Patient agrees with the plan of care and goals. Treatment Plan: Plan: Plan of care initiated PT Frequency: 6 times per week PT Inpatient Duration : Until goals are met or hospital discharge Requires Inpatient Follow-Up: Yes PT - Next Inpatient Appointment: 10/05/21 PT Plan Comments: Weekend appropriate this patient is likely discharging. Has 15 stairs to enter home. Otherwise consideration of rehab facility due to this and new requirement of oxygen. Treatment interventions may include: Treatment/Interventions: Therapeutic exercise, Therapeutic functional activity, Neuromuscular re-education, Gait training, Self-care/home management Billing: Time Spent with Patient PT Eval - Low Complexity: 11 min Therapeutic Activity (min): 21 min Total Timed Units (min): 21 min Total Treatment Time (min): 32 min Amanda Centeno P.T., D.P.T. Yang Cruz M.D., Ph.D. - 10/03/2021 10:02 AM CSTAssociated Order(s): IP CONSULT TO VASCULAR MEDICINE SUBJECTIVE Consults REASON FOR CONSULT stage 3c endometrial ca, hx of CORTES, increasing O2 requirments while asleep, CTA with subsegmental PE CHIEF COMPLAINT / REASON FOR CONSULT HISTORY OF PRESENT ILLNESS Ms. Pavon is a 70 y.o. female admitted on 10/01/2021 for Malignant Neoplasm Of Uterus Endometrial (HCC) [C54.1]. Patient was recently diagnosed with endometrial cancer and on October 01 underwent robotic-assisted hysterectomy with bilateral salpingo-oophorectomy. After this procedure, she developed some shortness of breath and was deoxygenated. She had a chest CT done yesterday which showed right-sided segmental acute pulmonary emboli. The patient also was found to have cardiomegaly with small pericardial effusion. Vascular Medicine Service was consulted last night, and we advised to start the patient on intermittent intensity of IV heparin and do ultrasound Doppler study of lower extremity venous system. This study was just completed before my visiting this patient today and is negative for acute vein thrombosis, is also negative for any scars from prior venous thromboembolism. It is obviously possible that the patient had thrombosis within the abdominal and pelvic veins, specifically ovarian vein or inferiorvena cava or iliac veins. While on IV heparin, patient has not reported any bleeding. Her hemoglobin dropped by 1 g compared to yesterday, but erythrocyte number is minimally decreased. Therefore, the decrease of hemoglobin could be somewhat related to dilution. The first heparin level is not therapeutic yet. The other relevant laboratory testing is normal platelet count today of 184,000. Patient has no prior history of venous thromboembolism. The following portions of the patient's history were reviewed and updated as appropriate: allergies,current medications, family history, medical history, social history, surgical history, problem list, labs, diagnostics tests. I reviewed the pertinent clinical notes in the electronic health record. REVIEW OF SYSTEMS 14 systems reviewed. Pertinent positives and pertinent negatives are documented in the history of present illness. OBJECTIVE VITALS BP 95/75 (BP Location: Left arm;Upper, Patient Position: Lying) Pulse 73 Temp 36.7 ??C (Oral) Resp 18 Ht 163.5 cm Wt 104 kg SpO2 93% BMI 38.75 kg/m?? PHYSICAL EXAMINATION Body mass index is 38.75 kg/m??. Physical Exam General: Well appearing adult; alert; in no distress. Respiratory: Non-labored breathing. Lungs clear to auscultation bilaterally. No Rhonchi, rales or rubs. Cardiovascular: Regular rate and rhythm; S1, S2 normal. No murmur. No gallop, or rub. Gastrointestinal: Abdomen soft, non-distended; bowel sounds present and active; non-tender to palpation throughout. No hepatosplenomegaly. Skin: No rashes or lesions noted. No jaundice noted. No significant bruising. Extremities: Warm; well perfused. No edema. Peripheral Vascular: Radial pulses 4/4. DP and PT pulses were all 4/4. Neurologic: Non-focal. DIAGNOSTIC REVIEW All labs and diagnostic studies were reviewed. ASSESSMENT / PLAN #1 Provoked venous thromboembolism Patient had venous thromboembolism, specifically right side pulmonary emboli, associated with cardiomegaly and some pleural effusion after surgery for endometrial cancer. For cancer-associated venous thromboembolism, patient needs to be treated for a minimum of 6 months and until declared cancer-free. I discussed in great detail the options of anticoagulation including treatment with low-molecular heparin, treatment with Xarelto, treatment with Eliquis, treatment with Savaysa, as well as treatment with warfarin. I pointed out to the patient that warfarin does not represent the first line of therapyanymore. The patient was not very enthusiastic about injections; therefore, she did not want to discuss the option of enoxaparin or Savaysa. We, therefore, concentrated our attention to either Xarelto or Eliquis. I pointed out to the patient that Xarelto needs to be taken with food. It needs to be rather largefood. For the 21 days, she takes 15 mg twice a day and then goes to once a day dosing of 20 mg. If she chooses Eliquis, for the first 10 days, she needs to take 10 mg (2 tablets) every 12 hours followed by the dose of 5 mg (1 tablet) every 12 hours. Eliquis has absorption not affected by food. Therefore, it could be taken with or without food. If Primary Service wants to reassess the status of abdomen and pelvis after surgery, CT venogram canbe done, and at this time we can rule out the presence of venous thrombosis within this territory. This seems to be clinically more suspicion as a source of embolization. Patient needs to be seen by the end of 3 months at [facility] to further discuss duration and intensity of anticoagulation. Patient does not need to have any thrombophilia workup because the cause of her thrombosis is obvious. If either Xarelto or Eliquis are chosen as an anticoagulant, at the time that IV heparin is stopped,she needs to receive the first dose of either Xarelto or Eliquis. If patient is on either Xarelto or Eliquis and requires invasive procedure, this anticoagulant needsto be stopped 24 hours before [id number] risk procedure or 48 hours before high-bleeding riskprocedure. It is obviously the decision of the doctor who is doing this procedure if this is a high-risk or [id number] risk procedure. Neither Xarelto nor Eliquis should be started too early after invasive procedure because both of them are very fast-acting anticoagulants (full anticoagulation within 2 hours after taking the tablet). If patient has major bleeding or requires immediate life-saving surgery, both Xarelto and Eliquis have FDA-approved antidote that can be used (Andexxa). This was all discussed with the patient in great detail. She is rather leaning toward Eliquis because she is not sure if she will be able to eat while on chemotherapy for cancer. Because of cardiomegaly, patient needs to have a transthoracic echo done before she goes home to assess right ventricular function and severity of pericardial effusion. RECOMMENDATIONS: 1. For cancer-associated VTE, she needs minimum 6 months of anticoagulation, options discussed with the patient. 2. TTE for RV function assessment. ADDENDUM: Mild-moderately enlarged right ventricular chamber size, normal systolic function. 2. Estimated right ventricular systolic pressure 49 mmHg (right atrial pressure of 5 mmHg). 3. Mildly enlarged left ventricular chamber size, no regional wall motion abnormalities. 4. Calculated 2-D biplane volumetric left ventricular ejection fraction 65%. 5. Normal cardiac valves. Mild tricuspid regurgitation. 6. Normal inferior vena cava size with normal inspiratory collapse (>50%). 7. Small circumferential pericardial effusion. Patient does not have RV diminish function. Pulmonary pressure is mildly/modera elevated. Recommendations for intnesity and duration of anticoagulation remain unchanged. Yang Salinas M.D., Ph.D. EATION ATTENDANT documented in this encounter Nursing Notes Quyen Shi R.N. - 10/07/2021 5:35 PM CST Shift Goals: Clinical Goals for the Shift: Adequate O2 sats while on room air Identify possible barriers to meeting goals/advancing plan of care: none End of Shift Summary: patient met discharge criteria. Discharged to home self care with and escort. Problem: PAIN - ADULT Goal: PT VERBALIZES/DEMONSTRATES ADEQUATE COMFORT LEVEL OR BASELINE Outcome: Completed Problem: KNOWLEDGE DEFICIT Goal: Patient/family/caregiver demonstrates understanding of disease process, treatment plan, medications, and discharge instructions Outcome: Completed Problem: INFECTION - ADULT Goal: Absence of infection during hospitalization Outcome: Completed Problem: SKIN/TISSUE INTEGRITY Goal: Skin/Tissue integrity maintained or improved Outcome: Completed Goal: Oral and Nasal mucous membranes remain intact Outcome: Completed Problem: SAFETY ADULT Goal: Maintain a safe environment Outcome: Completed Problem: DISCHARGE PLANNING Goal: Patient discharge needs identified Outcome: Completed Problem: SAFETY ADULT - RISK FOR FALL AND OR FALL INJURY Goal: Patient remains free from fall/fall injury Outcome: Completed Problem: POTENTIAL OR ACTUAL PRESSURE INJURY-ADULT Goal: Manage sensory Perception deficits to maintain and/or improve skin integrity Outcome: Completed Goal: Maintain optimal skin moisture to ensure or improve skin integrity Outcome: Completed Goal: Achieve optimal activity and/or mobility to maintain or improve skin integrity Outcome: Completed Goal: Nutrient intake appropriate for improving, restoring or maintaining skin integrity Outcome: Completed Goal: Minimize friction and/or shear to maintain or improve skin integrity Outcome: Completed Problem: Compromised Skin Integrity Goal: Skin/Tissue integrity maintained or improved Outcome: Completed Goal: Oral and Nasal mucous membranes remain intact Outcome: Completed Goal: Incisions, wounds, or drain sites healing without S/S of infection Outcome: Completed Problem: Incontinence and/or Moisture Goal: Skin integrity is maintained or improved Outcome: Completed EATION ATTENDANT Marcie Pearson R.N. - 10/03/2021 9:17 PM CST Shift Goals: Clinical Goals for the Shift: Tolerable pain control, ambulate twice and void Identify possible barriers to meeting goals/advancing plan of care: none End of Shift Summary: Sugar was able to ambulate around the nurse's station twice this evening. She reports that most of the pain is when she is getting in and out of bed, but is being controled with oral medications. She is voiding, passing gas, and tolerating a general diet. EATION ATTENDANT Hayley Koenig M.D., M.S. - 10/03/2021 5:57 PM CST Contacted vascular medicine team with results of TTE performed this afternoon. I discussed the patient's care with Dr. Allen (Vascular Medicine Trim Attacher Service Control Operator). The TTE findings are consistent with heart strain. Given the patient is hemodynamically stable with no clinical status changes, recommendation to continue heparin nomogram moderate intensity overnight. The vascularmedicine team will re-evaluate in the morning. No change in planned recommendations overnight. I did discuss with the on-call overnight gynecologic surgery resident to be aware that if the patient has any vital sign changes, hemodynamics status changes, or new clinical symptoms that the vascularmedicine team would like to be contacted again for re-evaluation Hayley Koenig M.D., M.S. EATION ATTENDANT documented in this encounter OR Notes Op Note - Jessy Pineda M.D. - 10/01/2021 8:39 AM CST Pre-op Diagnosis Malignant Neoplasm Of Uterus Endometrial (HCC) Post-op Diagnosis Malignant Neoplasm Of Uterus Endometrial (HCC) Findings This case was substantially more difficult than usual because of significant effort and difficulty mobilizing and identifying anatomical structures due to altered surgical field secondary to distorted anatomy, inflammation and obesity.This case was substantially more difficult than usual because of tumor size and difficult location.This case was substantially more difficult than usual because of lysing adhesions/ scar tissue for greater than 90 minutes. Complications None Cancer: Endometrial. Primary surgery. Metastatic. Description of Procedure The patient was prepped and draped in synchronous position in yellow [facility]. After sterile prep and drape, the cervix was injected at 3 and 9 o'clock with ICG dye, and a Mi catheter was then inserted. Gloves and gowns were changed, and we began by directly entering the abdomen. A small incision was made just above the umbilicus and using an open laparoscopic technique the peritoneal cavity was entered, and a pneumoperitoneum was established including trocar placement. The laparoscope was inserted. The remaining 3 robotic ports and anesthetic assistant port were placed under direct vision and the robot was docked. We began by searching for the left periaortic lymph node, as we knew that if this was not possible to remove robotically, we would need to perform a laparotomy. We incised the peritoneum over the left common iliac artery following it cephalad. This was extremely difficult because of the excess amount of mesentery and adipose in the patient's abdomen. However, we were able to uncover the area of the node. This appeared to be significantly adherent to all of its surrounding structures. Wealso examined the pelvis at this time. There was disease coming through the surface of the uterus and attaching itself to the bowel. The left side of the pelvis was also significantly tethered with disease along the entire sidewall. We therefore decided to perform a laparotomy. All instruments removedfrom the abdomen. A midline incision was made, and the findings are summarized above. We began by lysing adhesions. There was significant adhesions between the epiploic tags of the sigmoid colon and the uterus because of the disease that was coming through the surface of the uterus. There was also a diverticulum significantly stuck to the uterus. We therefore incised all of these connections, using Metzenbaum scissors to disconnect the diverticulum from the uterus. We then used 2-0 Vicryl suture to over-sew the diverticulum in two layers. At this point we turned our attention to the left periaortic area. We incisedthe white line of Toldt and reflected the sigmoid colon medially. We identified the enlarged left periaortic lymph node. This was densely adherent to all of its surrounding structures, including the aorta, multiple periaortic vessels, multiple paraspinal vessels, and the left psoas muscle. Meticulous lysis of adhesions and dissection of the left periaortic lymph node off of the aorta and all of its other surrounding structures was performed, employing multiple clips, cautery, and Metzenbaum scissors. The entire left periaortic lymph node was able to be removed in this fashion. We then identified the left iliac lymph node which was enlarged and hardened and removed this as well. At this point we turned our attention to the pelvis. We began by removing the peritoneum from the bladder, as the bladder peritoneum had dense disease all along it. We then were able to incise the right round ligament andentered the right retroperitoneum. The ureter was identified. The right infundibulopelvic ligament was coagulated and cut with the LigaSure. Of note, the right ovary was surgically absent. The broad ligament was incised. At this point we turned our attention to the left side of the pelvis which had a significant amount of disease. We reformed extensive lysis of adhesions using monopolar cautery and cold scissors to restore normal anatomy. This took approximately 90 minutes. We were then able to enter the round ligament, incise the lateral peritoneum, and coagulate and cut the left infundibulopelvic ligament. Once this was complete, we were able to bring the bladder down from the cervix. The bladder was then backfilled with sterile milk because of the significant amount of lysis of adhesions whichhad to occur. The bladder was completely intact. The uterus spontaneously avulsed from the cervix because of the significant amount of disease in the lower uterine segment. We therefore removed this and performed a trachelectomy, clamping, coagulating, and cutting the uterine arteries bilaterally withexcellent visualization of the ureters at all times. A colpotomy was performed and the cervix was removed. The vagina was then closed in the usual [place] fashion in two layers. Excellent hemostasis was no [place]. At this point we turned our attention to the right pelvic lymph nodes. The enlarged right pelvic lymph node was identified and coagulated and removed. Excellent hemostasis was noted. At this pointwe received the pathology results that the uterine tumor with high-grade endometrial cancer, possibly serous. We therefore performed a dependent omentectomy using the LigaSure device. Excellent hemostasis was noted. The rest of the abdomen and pelvis were then examined and found to have no additional disease. Copious irrigation was performed. The fascia was closed with looped 0 PDS in a running fashion, and the skin was closed with 3-0 Monocryl in a subcuticular fashion. The patient was transferred to recovery in stable condition. Jessy Pineda M.D. EATION ATTENDANT Brief Op Note - Martinez Rock M.D., M.P.H. - 10/01/2021 8:39 AM RECREATION ATTENDANT Pre-op Diagnosis Malignant Neoplasm Of Uterus Endometrial (HCC) Post-op Diagnosis Malignant Neoplasm Of Uterus Endometrial (HCC) Findings Uterus densely adherent to epiploic appendages posteriorly/at the fundus and to the bladder anteriorly. Robotic exploration attempted but aborted due to concern for invasive disease. Uterus, fallopian tubes, ovaries and left para-aortic LN sent for frozen, involved with invasive carcinoma. Sigmoid nodule, dependent omentectomy, bladder peritoneum, pelvic LNs, washings sent for permanent pathology. Complications None EBL: 300cc UOP: 1100cc IVF: 3.5L crystallloid, 250cc colloid Martinez Rock M.D., M.P.H. EATION ATTENDANT documented in this encounter Miscellaneous Notes Result Encounter Note - Jessy Pineda M.D. - 10/10/2021 4:51 PM RECREATION ATTENDANT I have reviewed the final pathology report and the identified diagnosis is consistent with the patient's clinical presentation. EATION ATTENDANT Documentation Clarification - Martinez Rock M.D., M.P.H. - 10/07/2021 5:53 PM CST PROVIDER RESPONSE TEXT: To clarify, the appropriate diagnosis supported by the clinical indicators: Segmental Pulmonary Embolism without Acute Cor Pulmonale, not present on admission <LCI> QUERY TEXT: DOCUMENTATION CLARIFICATION REQUEST Please clarify/specify the appropriate diagnosis supported in the clinical indicators below. [[Segmental Pulmonary Embolism without Acute Cor Pulmonale, not present on admission]] Other (explain) Clinically unable to determine (explain) Clinical Indicators/Risk Factors/Treatment: - 10/01 H&P - Isreal Colmenares: 70 y.o. Female admitted with endometrial cancer. - 10/01 PN - Dr. Welsh: Resp: Normal work of breathing on room air - 10/02 PN - Dr. Humphrey: Events over the past 24 hours: Increasing oxygen requirement overnight while using home CPAP, currently on 5L NC. Otherwise AFVSS; Physical Exam: Pulmonary Effort: Pulmonary effort is normal. Breath sounds: Normal breath sounds. No wheezing or rales. - 10/03 PN - Dr. Humphrey: Pulmonology consulted (curbside phone call, formal consult not completed yesterday) due to persistent O2 requirement. CXR showed bibasilar atelectasis, diminished lung volumes bilaterally, and small left pleural effusion. CTA protocol recommended which revealed right segmental PE. Vascular Medicine consulted, patient initiated on moderate intensity heparin normogram- AFVSS overnight, persistent O2 requirement of 2-4L NC - 10/03 CTA Chest/Pulm Arteries: Impression: Positive for right-sided segmental acute pulmonary emboli. - 10/03 Vasc Consult: Dr. Salinas: Vascular Medicine Service was consulted last night, and we advised to start the patient on intermittent intensity of IV heparin and do ultrasound Doppler study of lower extremity venous system. This study was just completed before my visiting this patient today and is negative for acute vein thrombosis, is also negative for any scars from prior venous thromboembolism. It is obviously possible that the patient had thrombosis within the abdominal and pelvic veins, specifically ovarian vein or inferior vena cava or iliac veins...Patient has no prior history of venous thromboembolism. Provoked venous thromboembolism. Patient had venous thromboembolism, specifically right side pulmonary emboli, associated with cardiomegaly and some pleural effusion after surgery for endometrial cancer. For cancer-associated venous thromboembolism, patient needs to be treated for a minimum of 6 months and until declared cancer-free. - 10/03 PN - Dr. Rock: Multiple Subsegmental Pulmonary Embolism Without Acute Cor Pulmonale - [facility] MAR: Heparin gtt - 10/02-10/05, Eliquis 10mg PO bid - beginning 10/05 Please contact me if you have questions. Thank you, ZOHAIB Paul, CCS, CCDS Clinical Documentation Hosiery Pairer Query created by: ZOHAIB Paul, CCS, CCDS 10/09/2021 11:51 AM RECREATION ATTENDANT </LCI> EATION ATTENDANT Documentation Clarification - Martinez Rock M.D., M.P.H. 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 Female admitted with endometrial cancer. - 10/01 Pathology (reported on 10/03): Final Diagnosis: A. 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 B. Lymph node, left external iliac, biopsy: A single (1) lymph node is positive for metastatic carcinoma. C. Lymph node, left para-aortic, biopsy: A single (1) lymph node is positive for metastatic carcinoma, consistent with serous carcinoma. D. Uterus and bilateral fallopian tubes and left ovary, supracervical hysterectomy, bilateral salpingectomy and left oophorectomy: Endometrial adenocarcinoma, consistent with serous carcinoma, 7 cm mass involving anterior and posterior endometrium and invading through the myometrial thickness (2.2 cm) into the serosa. The cervix is submitted separately (see part F). Lymphovascular invasion is identified. Fallopian tubes and left ovary are uninvolved. E. Peritoneum, bladder, excision: Negative for carcinoma. F. Cervix, trachelectomy: Negative for carcinoma. G. Omentum, omentectomy: Negative for carcinoma. H. Lymph node, right pelvic, biopsy: A single (1) lymph node is positive for metastatic carcinoma. Please contact me if you have questions. Thank you, ZOHAIB Paul CCS, CCDS Clinical Documentation Hosiery Pairer Query created by: ZOHAIB Paul CCS, CCDS 10/09/2021 12:17 PM RECREATION ATTENDANT </LCI> EATION ATTENDANT Result Encounter Note - Jessy Pineda M.D. - 10/03/2021 2:52 PM RECREATION ATTENDANT I have reviewed the final pathology report and the identified diagnosis is consistent with the patient's clinical presentation. EATION ATTENDANT Hospital Course - Martinez Rock M.D., M.P.H. - 10/01/2021 4:34 PM RECREATION ATTENDANT DISCHARGE SUMMARY Admission Date: 10/01/2021 Discharge Date: 10/04/2021 Discharge Provider: Jessy Pineda M.D. Responsible Author(s): Martinez Rock M.D., M.P.H. PRIMARY DIAGNOSIS Endometrial Carcinoma ADDITIONAL DIAGNOSES Obesity Diverticulosis Chronic cough Pulmonary Embolism BRIEF HOSPITAL COURSE Surgeon: Jessy Pineda M.D. Polen-De, Clarissa L, M.D. Reckhow, Jensen D, M.D., M.P.H. PROCEDURE DATE: 10/01/2021 TYPE OF PROCEDURE(S): Procedure(s) (LRB): ROBOTIC EXPLORATION (N/A) PELVIC LYMPHADENECTOMY (Right) LYMPHADENECTOMY - PARA -AORTIC (Left) HYSTERECTOMY ABDOMINAL WITH BILATERAL SALPINGO - OOPHORECTOMY (N/A) OMENTECTOMY (N/A) PROCEDURAL COMPLICATIONS: None POSTOPERATIVE COURSE: The patient recovered in PACU prior to being transferred to the floor for recovery. On POD1 the Mi catheter was removed with a successful voiding trial. The patient began to ambulate and tolerate PO intake. She had a persistent supplemental O2 requirement, so her care was reviewed by Pulmonology who recommended a chest x-ray to assess for atelectasis. Chest x-ray was unremarkable so CT angiogram was performed to assess for pulmonary embolism and a right lung pulmonary embolism was found. Vascular Medicine was consulted for management recommendations and the patient was started on a heparin infusion. On POD3 the patient was evaluated by physical therapy and respiratory therapy for homegoing planning. On POD4 vascular medicine was re-consulted for anticoagulation recommendations. Per their recommendations IV heparin was discontinued and Eliquis 10 mg BID was started for 7 days and then patient will be transitioned to 5 mg BID for 6 months with plans for 3 month follow up in Thrombophilia clinic. The patient continued to advance towards post-operative recovery milestones including working on ambulation over the next two days. On POD6 the patient met criteria for discharge and was discharged to home. PATHOLOGY: Recent Results (from the past 168 hour(s)) Cytology Non-CARTOGRAPHY PROFESSOR Status: Abnormal Result Value (A) Report electronically signed by (Nicolas) Eddie Arteaga M.D., Ph.D. I verify that I have examined all relevant slides/materials for the specimen(s) and rendered or confirmed the diagnosis. Gross Description Received 90 cc of clear fluid. (A) Source A. Peritoneal, Pelvic, washing (A) Interpretation (A) A. Peritoneal, Pelvic, washing (ThinPrep/cell block): Atypical. Abnormal epithelial cells, favor reactive/degenerative etiology. Immunohistochemical studies were performed. Stains of Urbano-EP4, MOC31, D2-40, calretinin and Claudin-4 support the diagnosis. *Note: Due to a large number of results and/or encounters for the requested time period, some results have not been displayed. A complete set of results can be found in Results Review. CYTOLOGY: Order Name Source Comment Collection Info Order Time CYTOLOGY NON-CARTOGRAPHY PROFESSOR Peritoneal Fluid Collected By: Jessy Pineda M.D. 10/01/2021 10:16 AM Should the communication of this result to the patient's portal be released immediately? Manual release only SURGICAL PATHOLOGY, [facility] Colon Collected By: Jessy Pineda M.D. 10/01/2021 11:00 AM Should the communication of this result to the patient's portal be released immediately? Manual release only DISMISSAL LABS: Hemoglobin: Lab Results Component Value Date HGB 10.5 (L) 10/04/2021 Creatinine: Lab Results Component Value Date CREATININE 0.78 10/02/2021 FOLLOW UP APPOINTMENTS: Plan for a routine post-operative visit at 6 weeks to assess healing and recovery after surgery. Plan for consultations with Medical Oncology and Radiation Oncology to discuss plans for treatment of your cancer after surgery. Anticoagulation: Please continue to take Eliquis 10mg twice daily for 10 days total, and after this take 5mg twice daily. You will continue taking this therapy for at least 6 months. If you have any questions or concerns regarding this therapy, please contact the Vascular Medicine team. Plan for a follow up visit with Vascular Medicine Thrombophilia Clinic in 3 months to assess your recovery from the pulmonary embolism and to guide management therapy moving forward. EATION ATTENDANT documented in this encounter Plan of Treatment Upcoming Encounters Date Type Specialty Care Team Description 05/02/2022 Appointment Radiation Oncology Dot Lopez M.D. [address] [place] [phone] 05/05/2022 Appointment Radiation Oncology Judy Mccall M.D. [address] [place] [phone] 05/06/2022 Appointment Radiation Oncology Judy Mccall M.D. [address] [place] [phone] 05/06/2022 Appointment Radiation Oncology Judy Mccall M.D. [address] [place] [phone] 05/07/2022 Appointment Radiation Oncology Judy Mccall M.D. [address] [place] [phone] 05/08/2022 Appointment Radiation Oncology Judy Mccall M.D. [address] [place] [phone] 05/22/2022 Clinical Communication Admitting/Central Scheduling 05/26/2022 Appointment Radiology Merlyn Rose APRN, C.NLeopoldo, M.S.N. [address] [place] [phone] 05/27/2022 Office Visit Oncology Merlyn Rose APRN, C.N.P., M.S.N. [address] [place] [phone] Scheduled Referrals Name Type Priority Associated Diagnoses Order S chedule Oncology - Medical, Outpatient Routine Malignant Neoplasm Ex pected: CARTOGRAPHY PROFESSOR consult (clinic) Referral Of Uterus (HCC) 09/2021 (Approximate), Expires: 01/02/2023 Radiation Oncology - Outpatient Routine Malignant Neoplasm E xpected: Hand Compositor consult (clinic) Referral Of Uterus (HCC) 09/2021 (Approximate), Expires: 01/02/2023 Obstetrics and Outpatient Routine Expected: Gynecology Post Op Referral , (clinic) Expires: 01/04/2023 Vascular Medicine - Outpatient Routine Multiple Expected : Thrombophilia consult Referral Subsegmental 2021 (clinic) Pulmonary Embolism (Approxim ate), Without Acute Cor Expires: Pulmonale (HCC) 01/04/2023 documented as of this encounter Procedures Procedure Name Priority Date/Time Associated Comments Diagnosis NOCTURNAL OXYGEN STUDY Routine 10/06/2021 9:28 - RT PM RECREATION ATTENDANT REMOTE OXIMETRY Routine 10/06/2021 8:00 MONITORING CONT. AM RECREATION ATTENDANT REMOTE OXIMETRY Routine 10/05/2021 8:00 MONITORING CONT. PM RECREATION ATTENDANT HEPARIN LEVEL ANTI-XA Timed 10/05/2021 8:28 Res ults for ASSAY, P AM RECREATION ATTENDANT this procedure are in the results section. REMOTE OXIMETRY Routine 10/05/2021 8:00 MONITORING CONT. AM RECREATION ATTENDANT CBC WITHOUT Routine 10/05/2021 Results for DIFFERENTIAL, B 12:55 AM RECREATION ATTENDANT this procedu re are in the results section. HEPARIN LEVEL ANTI-XA Timed 10/05/2021 Result s for ASSAY, P 12:34 AM RECREATION ATTENDANT this procedure are in the results section. REMOTE OXIMETRY Routine 10/04/2021 8:00 MONITORING CONT. PM RECREATION ATTENDANT REMOTE OXIMETRY Routine 10/04/2021 8:01 MONITORING CONT. AM RECREATION ATTENDANT HEPARIN LEVEL ANTI-XA Timed 10/04/2021 7:07 Res ults for ASSAY, P AM RECREATION ATTENDANT this procedure are in the results section. HEPARIN LEVEL ANTI-XA Timed 10/04/2021 Result s for ASSAY, P 12:52 AM RECREATION ATTENDANT this procedure are in the results section. CBC WITHOUT Routine 10/04/2021 Results for DIFFERENTIAL, B 12:52 AM RECREATION ATTENDANT this procedu re are in the results section. REMOTE OXIMETRY Routine 10/03/2021 8:00 MONITORING CONT. PM RECREATION ATTENDANT HEPARIN LEVEL ANTI-XA Timed 10/03/2021 5:57 Res ults for ASSAY, P PM RECREATION ATTENDANT this procedure are in the results section. (TTE) 2D ECHO DOPPLER Routine 10/03/2021 3:53 Res ults for COLOR PM RECREATION ATTENDANT this procedure are in the results section. HEPARIN LEVEL ANTI-XA Timed 10/03/2021 Result s for ASSAY, P 12:18 PM RECREATION ATTENDANT this procedure are in the results section. US LOWER EXTREMITY RAD - Routine 10/03/2021 9:16 Resul ts for VEINS BILATERAL (most inpatients AM RECREATION ATTENDANT this pro cedure and all are in the outpatients) results section. REMOTE OXIMETRY Routine 10/03/2021 8:01 MONITORING CONT. AM RECREATION ATTENDANT HEPARIN LEVEL ANTI-XA Timed 10/03/2021 5:22 Res ults for ASSAY, P AM RECREATION ATTENDANT this procedure are in the results section. CBC WITHOUT Routine 10/03/2021 5:22 Results for DIFFERENTIAL, B AM RECREATION ATTENDANT this procedu re are in the results section. ACTIVATED PARTIAL STAT 10/02/2021 Results fo r THROMBOPLASTIN TIME 10:23 PM RECREATION ATTENDANT this pro cedure (APTT), P are in the results section. CT CHEST ANGIOGRAM AND RAD - Semiurgent 10/02/2021 9:51 Results for PULMONARY ARTERIES (Fast; most ED PM RECREATION ATTENDANT this pr ocedure WITH IV CONTRAST patients; some are in th e inpatients) results section. REMOTE OXIMETRY Routine 10/02/2021 8:01 MONITORING CONT. PM RECREATION ATTENDANT DX CHEST PORTABLE 1 RAD - Semiurgent 10/02/2021 7:23 R esults for VIEW (Fast; most ED PM RECREATION ATTENDANT this procedur e patients; some are in the inpatients) results section. REMOTE OXIMETRY Routine 10/02/2021 2:49 MONITORING CONT. PM RECREATION ATTENDANT REMOTE OXIMETRY Routine 10/02/2021 2:49 MONITORING CONT. PM RECREATION ATTENDANT REMOTE OXIMETRY Routine 10/02/2021 2:49 MONITORING CONT. PM RECREATION ATTENDANT CBC WITHOUT Routine 10/02/2021 Results for DIFFERENTIAL, B 12:26 AM RECREATION ATTENDANT this procedu re are in the results section. BASIC METABOLIC PANEL, Routine 10/02/2021 Resul ts for S/P 12:26 AM RECREATION ATTENDANT this procedure are in the results section. DX ABDOMEN 1 VIEW RAD - Routine 10/01/2021 4:54 Result s for (most inpatients PM RECREATION ATTENDANT this proced ure and all are in the outpatients) results section. SURGICAL PATHOLOGY, Routine 10/01/2021 Malignant Results for [facility] 10:59 AM RECREATION ATTENDANT Neoplasm Of this procedure Uterus are in the Endometrial (HCC) results section. CYTOLOGY NON-CARTOGRAPHY PROFESSOR Routine 10/01/2021 Malignant Results for 10:16 AM RECREATION ATTENDANT Neoplasm Of this procedure Uterus are in the Endometrial (HCC) results section. OMENTECTOMY 10/01/2021 7:31 Malignant AM RECREATION ATTENDANT Neoplasm Of Uterus Endometrial (HCC) HYSTERECTOMY ABDOMINAL 10/01/2021 7:31 Malignant WITH SALPINGO - AM RECREATION ATTENDANT Neoplasm Of OOPHORECTOMY Uterus Endometrial (HCC) LYMPHADENECTOMY - 10/01/2021 7:31 Malignant PELVIS OR AORTIC AM RECREATION ATTENDANT Neoplasm Of Uterus Endometrial (HCC) LYMPHADENECTOMY PELVIC 10/01/2021 7:31 Malignant AM RECREATION ATTENDANT Neoplasm Of Uterus Endometrial (HCC) ROBOTIC-ASSISTED 10/01/2021 7:31 Malignant ABDOMINAL EXPLORATION AM RECREATION ATTENDANT Neoplasm Of Uterus Endometrial (HCC) documented in this encounter Results (ABNORMAL) Comprehensive Metabolic Panel (01/15/2022 10:31 AM CDT) P athologist Signature Potassium, S 3.7 3.6 - 5.2 01/15/2022 DTL mmol/L 11:25 AM CDT Sodium, S 141 135 - 145 01/15/2022 DTL mmol/L 11:25 AM CDT Chloride, S 105 98 - 107 01/15/2022 DTL mmol/L 11:25 AM CDT Bicarbonate, S 26 22 - 29 01/15/2022 DTL mmol/L 11:25 AM CDT Anion Gap 10 7 - 15 01/15/2022 DTL 11:25 AM CDT BUN (Blood Urea 9 6 - 21 01/15/2022 DTL Nitrogen), S mg/dL 11:25 AM CDT Creatinine 0.76 0.59 - 01/15/2022 DTL 1.04 mg/dL 11:25 AM CDT eGFR-Non 79 >=60 01/15/2022 DTL Black/ mL/min/BSA 11:25 AM CDT Hong [place]er Comment: ----ADDITIONAL INFORMATION---- Estimated GFR calculated using the 2009 CKD_EPI creatinine equation. eGFR-Black/ >90 >=60 mL/min/BSA 2021 11:25 AM CDT DTL Comment: ----ADDITIONAL INFORMATION---- Estimated GFR calculated using the 2009 CKD_EPI creatinine equation. Calcium, Total, S 8.2 (L) 8.8 - 10.2 mg/dL 01/15/2022 11:2 5 AM CDT DTL Glucose, S 86 70 - 140 mg/dL 01/15/2022 11:25 AM CDT DTL Protein, Total, S 5.9 (L) 6.3 - 7.9 g/dL 01/15/2022 11:25 AM CDT DTL Albumin, S 3.8 3.5 - 5.0 g/dL 01/15/2022 11:25 AM CDT DTL Aspartate Aminotransferase 14 8 - 43 U/L 01/15/2022 1 1:25 AM CDT DTL (AST), S Alkaline Phosphatase, S 77 35 - 104 U/L 01/15/2022 11 :25 AM CDT DTL Alanine Aminotransferase 8 7 - 45 U/L 01/15/2022 11: 25 AM CDT DTL (ALT), S Bilirubin, Total, S 0.3 <=1.2 mg/dL 01/15/2022 11:25 A M CDT DTL Specimen Anatomical Collection Method Collection Time Receive d Time (Source) Location / / Volume Laterality Blood (Blood, 01/15/2022 10:31 01/15/2022 Venous) AM CDT 11:03 AM CDT Sheila Torres APRN, R.N. LAB BLOOD ADD-ON Performing Organization Address City/State/ZIP Code Phon e Number [facility] - [address] [place], [place] [phone] [facility] [place] [address] Laboratories[address] APTT (Activated Partial Thromboplastin Time) (01/15/2022 10:31 AM CDT) P athologist Signature Activated 36 25 - 37 sec 01/15/2022 DTL Partial 11:14 AM CDT Thrombopl Time, P Specimen Anatomical Collection Method Collection Time Receive d Time (Source) Location / / Volume Laterality Blood (Blood, 01/15/2022 10:31 01/15/2022 Venous) AM CDT 10:48 AM CDT Sheila Torres APRN, R.N. LAB BLOOD ADD-ON Performing Organization Address City/[facility]/ZIP Code Phon e Number [facility] - [address] [place], [place] [address] [place] [address] [place] [id number] [place] [address] (ABNORMAL) Prothrombin Time (PT) (01/15/2022 10:31 AM CDT) [facility] CPower Method Time Signature Prothrombin 15.0 (H) 9.4 - 12.5 01/15/2022 DTL Time, P sec 11:14 AM CDT INR 1.4 0.9 - 1.1 01/15/2022 DTL 11:14 AM CDT Comment: ----ADDITIONAL INFORMATION---- Standard intensity warfarin therapeutic range: 2.0 to 3.0 ?? High intensity warfarin therapeutic rang e: 2.5 to 3.5 Specimen Anatomical Collection Method Collection Time Receive d Time (Source) Location / / Volume Laterality Blood (Blood, 01/15/2022 10:31 01/15/2022 Venous) AM CDT 10:48 AM CDT Sheila Torres APRN, R.N. LAB BLOOD ADD-ON Performing Organization Address City/State/[facility] Code Phon e Number [facility] - [address] [place], [place] [address] [place] [address] [place] [address] Laboratories[address] (ABNORMAL) CBC with Differential, Blood (01/15/2022 10:31 AM CDT) [facility] gist Method Time Signature Hemoglobin 8.4 (L) 11.6 - 01/15/2022 DTL 15.0 g/dL 11:29 AM CDT Hematocrit 26.4 (L) 35.5 - 01/15/2022 DTL 44.9 % 11:29 AM CDT Erythrocytes 2.81 (L) 3.92 - 01/15/2022 DTL 5.13 11:29 AM CDT x10(12)/L MCV 94.0 78.2 - 01/15/2022 DTL 97.9 fL 11:29 AM CDT RBC Distrib Width 19.3 (H) 12.2 - 01/15/2022 DTL 16.1 % 11:29 AM CDT Platelet Count 58 (L) 157 - 371 01/15/2022 DTL x10(9)/L 11:29 AM CDT Leukocytes 2.4 (L) 3.4 - 9.6 01/15/2022 DTL x10(9)/L 11:29 AM CDT Neutrophils 1.03 (L) 1.56 - 01/15/2022 DTL 6.45 11:29 AM CDT x10(9)/L Lymphocytes 1.08 0.95 - 01/15/2022 DTL 3.07 11:29 AM CDT x10(9)/L Monocytes 0.24 (L) 0.26 - 01/15/2022 DTL 0.81 11:29 AM CDT x10(9)/L Eosinophils <0.03 0.03 - 01/15/2022 DTL 0.48 11:29 AM CDT x10(9)/L Basophils <0.03 0.01 - 01/15/2022 DTL 0.08 11:29 AM CDT x10(9)/L Specimen Anatomical Collection Method Collection Time Receive d Time (Source) Location / / Volume Laterality Blood (Blood, 01/15/2022 10:31 01/15/2022 Venous) AM CDT 10:48 AM CDT Sheila Torres APRN RChris. LAB BLOOD ADD-ON Performing Organization Address City/State/ZIP Code Phon e Number [facility] - [address] [place] [phone] [facility] [place] [address] Laboratories-[facility] 200 [facility] CBC with Differential, Blood (10/15/2021 8:20 AM CDT) P athologist Signature Hemoglobin 11.7 11.6 - 10/15/2021 DTL 15.0 g/dL 8:50 AM CDT Hematocrit 38.3 35.5 - 10/15/2021 DTL 44.9 % 8:50 AM CDT Erythrocytes 4.24 3.92 - 10/15/2021 DTL 5.13 8:50 AM CDT x10(12)/L MCV 90.3 78.2 - 10/15/2021 DTL 97.9 fL 8:50 AM CDT RBC Distrib Width 15.2 12.2 - 10/15/2021 DTL 16.1 % 8:50 AM CDT Platelet Count 293 157 - 371 10/15/2021 DTL x10(9)/L 8:50 AM CDT Leukocytes 5.9 3.4 - 9.6 10/15/2021 DTL x10(9)/L 8:50 AM CDT Neutrophils 3.96 1.56 - 10/15/2021 DTL 6.45 8:50 AM CDT x10(9)/L Lymphocytes 1.22 0.95 - 10/15/2021 DTL 3.07 8:50 AM CDT x10(9)/L Monocytes 0.49 0.26 - 10/15/2021 DTL 0.81 8:50 AM CDT x10(9)/L Eosinophils 0.20 0.03 - 10/15/2021 DTL 0.48 8:50 AM CDT x10(9)/L Basophils 0.05 0.01 - 10/15/2021 DTL 0.08 8:50 AM CDT x10(9)/L Specimen Anatomical Collection Method Collection Time Receive d Time (Source) Location / / Volume Laterality Blood (Blood, 10/15/2021 8:20 AM 10/16/19 8:39 Venous) CDT AM CDT Martinez Rock M.D., M.P.H. LAB BLOOD ADD-ON Performing Organization Address City/State/ZIP Code Phon e Number [facility] - [address] [place] [phone] [facility] [place] [address] Laboratories-[facility] [address] (ABNORMAL) Comprehensive Metabolic Panel (10/15/2021 8:20 AM CDT) P athologist Signature Potassium, S 4.2 3.6 - 5.2 10/15/2021 DTL mmol/L 9:24 AM CDT Sodium, S 141 135 - 145 10/15/2021 DTL mmol/L 9:24 AM CDT Chloride, S 106 98 - 107 10/15/2021 DTL mmol/L 9:24 AM CDT Bicarbonate, S 24 22 - 29 10/15/2021 DTL mmol/L 9:24 AM CDT Anion Gap 11 7 - 15 10/15/2021 DTL 9:24 AM CDT BUN (Blood Urea 9 6 - 21 10/15/2021 DTL Nitrogen), S mg/dL 9:24 AM CDT Creatinine 0.77 0.59 - 10/15/2021 DTL 1.04 mg/dL 9:24 AM CDT eGFR-Non 78 >=60 10/15/2021 DTL Black/ mL/min/BSA 9:24 AM CDT [place]er Comment: ----ADDITIONAL INFORMATION---- Estimated GFR calculated using the 2009 CKD_EPI creatinine equation. eGFR-Black/ >90 >=60 mL/min/BSA 2021 9:24 AM CDT DTL Comment: ----ADDITIONAL INFORMATION---- Estimated GFR calculated using the 2009 CKD_EPI creatinine equation. Calcium, Total, S 9.2 8.8 - 10.2 mg/dL 10/15/2021 9:24 AM CDT DTL Glucose, S 97 70 - 140 mg/dL 10/15/2021 9:24 AM CDT D TL Protein, Total, S 5.9 (L) 6.3 - 7.9 g/dL 10/15/2021 9:24 A M CDT DTL Albumin, S 3.9 3.5 - 5.0 g/dL 10/15/2021 9:24 AM CDT D TL Aspartate Aminotransferase 21 8 - 43 U/L 10/15/2021 9 :24 AM CDT DTL (AST), S Alkaline Phosphatase, S 70 35 - 104 U/L 10/15/2021 9: 24 AM CDT DTL Alanine Aminotransferase 12 7 - 45 U/L 10/15/2021 9:2 4 AM CDT DTL (ALT), S Bilirubin, Total, S 0.3 <=1.2 mg/dL 10/15/2021 9:24 AM CDT DTL Specimen Anatomical Collection Method Collection Time Receive d Time (Source) Location / / Volume Laterality Blood (Blood, 10/15/2021 8:20 AM 10/16/19 9:03 Venous) CDT AM CDT Martinez Rock M.D., M.P.H. LAB BLOOD ADD-ON Performing Organization Address City/[facility] Phon e Number [facility] - [address] Heparin Anti-Xa Assay (10/05/2021 8:28 AM RECREATION ATTENDANT) P athologist Signature Heparin 0.39 IU/mL 10/05/2021 [facility] Anti-Xa, P 9:11 AM RECREATION ATTENDANT Comment: UFH therapeutic range: ?? 0.30-0.70 IU/mL LMWH therapeutic range: 0.50-1.00 IU/mL 0.50-1.00 IU/mL for twice daily dosing ? ? 1.00-2.00 IU/mL for once daily dosing (sample obtained 4-6 hours following sub cutaneous injection) LMWH prophylactic range:0.10-0.30 IU/mL ----ADDITIONAL INFORMATION---- Heparin Anti-Xa is used to measure hepar in concentrations in patients receiving low molecular weig ht heparin (LMWH) or unfractionated heparin (UFH). Specimen Anatomical Collection Method Collection Time Receive d Time (Source) Location / / Volume Laterality Blood (Blood, 10/05/2021 8:28 AM 10/06/19 8:56 Venous) RECREATION ATTENDANT AM RECREATION ATTENDANT Jessy Pineda M.D. LAB BLOOD NON ADD-ON Performing Organization Address City/[facility] Phon e Number [facility] - [address] CBC without Differential (10/05/2021 12:55 AM RECREATION ATTENDANT) athologist Signature Hemoglobin 11.6 11.6 - 10/05/2021 [facility] 15.0 g/dL 1:57 AM RECREATION ATTENDANT Hematocrit 37.8 35.5 - 10/05/2021 [facility] 44.9 % 1:57 AM RECREATION ATTENDANT Erythrocytes 4.11 3.92 - 10/05/2021 PM 5.13 1:57 AM RECREATION ATTENDANT x10(12)/L MCV 92.0 78.2 - 10/05/2021 PM 97.9 fL 1:57 AM RECREATION ATTENDANT RBC Distrib Width 14.4 12.2 - 10/05/2021 PM 16.1 % 1:57 AM RECREATION ATTENDANT Platelet Count 257 157 - 371 10/05/2021 [facility] x10(9)/L 1:57 AM RECREATION ATTENDANT Leukocytes 8.6 3.4 - 9.6 10/05/2021 [facility] x10(9)/L 1:57 AM RECREATION ATTENDANT Specimen Anatomical Collection Method Collection Time Receive d Time (Source) Location / / Volume Laterality Blood (Blood, 10/05/2021 12:55 10/05/2021 1:08 Venous) AM RECREATION ATTENDANT AM RECREATION ATTENDANT Dale Welsh M.D. LAB BLOOD ADD-ON Performing Organization Address City/State/ZIP Code Phon e Number [facility] - [address] [place] [address] 55 05 [place] [address] Laboratories-[address] Heparin Anti-Xa Assay (10/05/2021 12:34 AM RECREATION ATTENDANT) athologist Signature Heparin 0.17 IU/mL 10/05/2021 [facility] Anti-Xa, 1:54 AM RECREATION ATTENDANT Comment: UFH therapeutic range: ?? 0.30-0.70 IU/mL LMWH therapeutic range: 0.50-1.00 IU/mL 0.50-1.00 IU/mL for twice daily dosing ? ? 1.00-2.00 IU/mL for once daily dosing (sample obtained 4-6 hours following sub cutaneous injection) LMWH prophylactic range:0.10-0.30 IU/mL ----ADDITIONAL INFORMATION---- Heparin Anti-Xa is used to measure hepar in concentrations in patients receiving low molecular weig ht heparin (LMWH) or unfractionated heparin (UFH). Specimen Anatomical Collection Method Collection Time Receive d Time (Source) Location / / Volume Laterality Blood (Blood, 10/05/2021 12:34 10/05/2021 1:08 Venous) AM RECREATION ATTENDANT AM RECREATION ATTENDANT Jessy Pineda M.D. LAB BLOOD NON ADD-ON Performing Organization Address City/[facility] Phon e Number [facility] - [address] Heparin Anti-Xa Assay (10/04/2021 7:07 AM RECREATION ATTENDANT) P athologist Signature Heparin 0.28 IU/mL 10/04/2021 [facility] Anti-Xa, P 7:48 AM RECREATION ATTENDANT Comment: UFH therapeutic range: ?? 0.30-0.70 IU/mL LMWH therapeutic range: 0.50-1.00 IU/mL 0.50-1.00 IU/mL for twice daily dosing ? ? 1.00-2.00 IU/mL for once daily dosing (sample obtained 4-6 hours following sub cutaneous injection) LMWH prophylactic range:0.10-0.30 IU/mL ----ADDITIONAL INFORMATION---- Heparin Anti-Xa is used to measure hepar in concentrations in patients receiving low molecular weig ht heparin (LMWH) or unfractionated heparin (UFH). Specimen Anatomical Collection Method Collection Time Receive d Time (Source) Location / / Volume Laterality Blood (Blood, 10/04/2021 7:07 AM 10/05/19 7:26 Venous) RECREATION ATTENDANT AM RECREATION ATTENDANT Jessy Pineda M.D. LAB BLOOD NON ADD-ON Performing Organization Address City/[facility] Phon e Number [facility] - [address] 200 [facility] Heparin Anti-Xa Assay (10/04/2021 12:52 AM RECREATION ATTENDANT) P athologist Signature Heparin 0.33 IU/mL 10/04/2021 [facility] Anti-Xa, P 1:17 AM RECREATION ATTENDANT Comment: UFH therapeutic range: ?? 0.30-0.70 IU/mL LMWH therapeutic range: 0.50-1.00 IU/mL 0.50-1.00 IU/mL for twice daily dosing ? ? 1.00-2.00 IU/mL for once daily dosing (sample obtained 4-6 hours following sub cutaneous injection) LMWH prophylactic range:0.10-0.30 IU/mL ----ADDITIONAL INFORMATION---- Heparin Anti-Xa is used to measure hepar in concentrations in patients receiving low molecular weig ht heparin (LMWH) or unfractionated heparin (UFH). Specimen Anatomical Collection Method Collection Time Receive d Time (Source) Location / / Volume Laterality Blood (Blood, 10/04/2021 12:52 10/04/2021 1:02 Venous) AM RECREATION ATTENDANT AM RECREATION ATTENDANT Jessy Pineda M.D. LAB BLOOD NON ADD-ON Performing Organization Address City/State/ZIP Code Phon e Number [facility] - [address] [place], [place] [address] [facility] [place] [address] Laboratories-[facility] [address] [facility] (ABNORMAL) CBC without Differential (10/04/2021 12:52 AM RECREATION ATTENDANT) [facility] gist Method Time Signature Hemoglobin 10.5 (L) 11.6 - 10/04/2021 DTL 15.0 g/dL 1:08 AM RECREATION ATTENDANT Hematocrit 33.9 (L) 35.5 - 10/04/2021 DTL 44.9 % 1:08 AM RECREATION ATTENDANT Erythrocytes 3.74 (L) 3.92 - 10/04/2021 DTL 5.13 1:08 AM RECREATION ATTENDANT x10(12)/L MCV 90.6 78.2 - 10/04/2021 DTL 97.9 fL 1:08 AM RECREATION ATTENDANT RBC Distrib Width 14.4 12.2 - 10/04/2021 DTL 16.1 % 1:08 AM RECREATION ATTENDANT Platelet Count 186 157 - 371 10/04/2021 DTL x10(9)/L 1:08 AM RECREATION ATTENDANT Leukocytes 8.3 3.4 - 9.6 10/04/2021 DTL x10(9)/L 1:08 AM RECREATION ATTENDANT Specimen Anatomical Collection Method Collection Time Receive d Time (Source) Location / / Volume Laterality Blood (Blood, 10/04/2021 12:52 10/04/2021 1:02 Venous) AM RECREATION ATTENDANT AM RECREATION ATTENDANT Dale Welsh M.D. LAB BLOOD ADD-ON Performing Organization Address City/[facility] Phon e Number [facility] - 200 [place], [place] [address] [place] [id number] [place] [address] Heparin Anti-Xa Assay (10/03/2021 5:57 PM RECREATION ATTENDANT) P athologist Signature Heparin 0.15 IU/mL 10/03/2021 [facility] Anti-Xa, P 6:24 PM RECREATION ATTENDANT Comment: UFH therapeutic range: ?? 0.30-0.70 IU/mL LMWH therapeutic range: 0.50-1.00 IU/mL 0.50-1.00 IU/mL for twice daily dosing ? ? 1.00-2.00 IU/mL for once daily dosing (sample obtained 4-6 hours following sub cutaneous injection) LMWH prophylactic range:0.10-0.30 IU/mL ----ADDITIONAL INFORMATION---- Heparin Anti-Xa is used to measure hepar in concentrations in patients receiving low molecular weig ht heparin (LMWH) or unfractionated heparin (UFH). Specimen Anatomical Collection Method Collection Time Receive d Time (Source) Location / / Volume Laterality Blood (Blood, 10/03/2021 5:57 PM 10/04/19 6:08 Venous) RECREATION ATTENDANT PM RECREATION ATTENDANT Martinez Rock M.D., M.P.H. LAB BLOOD NON ADD-ON Performing Organization Address City/State/[facility] Code Phon e Number [facility] - [address] [place], [place] [address] [place] [id number] (TTE) 2D ECHO DOPPLER COLOR (10/03/2021 3:53 PM RECREATION ATTENDANT) [facility] Method Time Signature Ejection Fraction 65 MC CV EIMS Sinus of Valsalva 39 MC CV EIMS Sinotubular Junction 29 MC CV EIM S Mid-Ascending Aorta 39 MC CV EIMS LV Mass Index 102 MC CV EIMS LV End-Diastolic 55 MC CV EIMS Diameter LV End-Systolic 34 MC CV EIMS Diameter LV End-Diastolic 137 MC CV EIMS Volume LV End-Systolic 47 MC CV EIMS Volume MV E Velocity 1 MC CV EIMS MV A Velocity 1 MC CV EIMS MV E/A 1 MC CV EIMS MV e' Velocity 0.07 MC CV EIMS Medial MV e' Velocity 0.10 MC CV EIMS Lateral MV E/e' Medial 14.30 MC CV EIMS MV E/e' Lateral 10 MC CV EIMS Left ventricular 45 MC CV EIMS stroke volume index Cardiac Output 6.59 MC CV EIMS Cardiac Index 3.17 MC CV EIMS LV Interventricular 10 MC CV EIMS Septal Wall Thickness LV Posterior Wall 10 MC CV EIMS Thickness LV Relative Wall 36 MC CV EIMS Thickness RV 4-Chamber Basal 49 MC CV EIMS Diameter RV 4-Chamber Mid 38 MC CV EIMS Diameter RV 4-Chamber Length 89 MC CV EIMS TAPSE 20 MC CV EIMS Tricuspid Annular S? 0.18 MC CV EIMS RV Free Wall Strain -32 MC CV EIMS TR Vmax 3.33 MC CV EIMS RA Pressure 5 MC CV EIMS RV Systolic Pressure 49 MC CV EIM S AV mean gradient 8 MC CV EIMS Aortic valve area 2.12 MC CV EIMS Aortic Valve 0.56 MC CV EIMS Dimensionless Index LA Volume Index 53 MC CV EIMS Anatomical Region Laterality Modality Other Specimen (Source) Anatomical Collection Method Collection Time Re ceived Time Location / / Volume Laterality 10/03/2021 2:05 PM RECREATION ATTENDANT Impressions 10/03/2021 11:22 PM RECREATION ATTENDANT Echo performed at the patient's bedside at [facility]. There are no previous [facility] echocardiograms available for comparison. Anemia, thyrotoxicosis, or another high output state could cont ribute to the increased Doppler velociti es (hemoglobin 10.7 g/dL). LEFT VENTRICLE:Mildly enlarged left vent ricular chamber size. Abnormal left ventricular geometry with ??eccentric left ventricular hypertrophy. Left ventricular mass index by 2D 102 g/m2. Calculated 2-D biplane volumetric left ventricular ejection fraction 65%. Left ventricular cardiac i ndex 3.17 l/min/m2. No regional wall motion abnormalities. Normal left ventricular filling pressure. RIGHT VENTRICLE:Mild-moderately enlarged right ventricular chamber size. Normal right ventricular systolic function. Strain imaging examination performed to assess right ventricular function. Averaged right ventricular free wall longitudinal peak systolic strain is -32% (normal = more n egative than -24%). Estimated right ventricular systolic pressure 49 mmHg (right atrial pressure of 5 mmHg). ATRIA:Severely enlarged left atrial size . Left atrial volume index 53 ml/m2. Moderately enlarged right atrial size. CARDIAC VALVES:Trileaflet aortic valve. Normal aortic valve. Trivial aortic valve regurgitation. Normal mitral valve. Trivial mitral valve regurgitation. Normal pulmonary valve. Normal pulmonary valve systolic velocities. Trivial pulmonary valve regurgitation. Normal tricuspid valve. M ild tricuspid valve regurgitation. OTHER ECHO FINDINGS:Normal inferior vena cava size with normal inspiratory collapse (>50%). Normal sinus of Valsalva diameter (diameter 39 mm). Normal mid ascending aorta diameter (diameter 39 mm at mid level). Abdominal aorta incompletely visualized due to bandages post-op. No atrial level kelsie nt by color flow imaging. No intracardiac mass or thrombus, but the left atrial appendage cannot be visualized adequately with transthoracic echo to exclude throm bus in this location. Prominent anterior and apical epicardial fat layer. Small circumferent ial pericardial effusion. For the complete report, see the [employer] Documents. Narrative 10/03/2021 11:22 PM RECREATION ATTENDANT For the complete report, see the Order-Level Documents. Final Impressions 1. Mild-moderately enlarged right ventri cular chamber size, normal systolic function. 2. Estimated right ventricular systolic pressure 49 mmHg (right atrial pressure of 5 mmHg). 3. Mildly enlarged left ventricular mike urbano size, no regional wall motion abnormalities. 4. Calculated 2-D biplane volumetric lef t ventricular ejection fraction 65%. 5. Normal cardiac valves. Mild tricuspid regurgitation. 6. Normal inferior vena cava size with n ormal inspiratory collapse (>50%). 7. Small circumferential pericardial eff usion. Procedure Note Trenton Amador M.D. - 10/03/2021Form atting of this note might be different from the original. For the complete report, see the [employer] Documents. Final Impressions 1. Mild-moderately enlarged right ventri cular chamber size, normal systolic function. 2. Estimated right ventricular systolic pressure 49 mmHg (right atrial pressure of 5 mmHg). 3. Mildly enlarged left ventricular mike urbano size, no regional wall motion abnormalities. 4. Calculated 2-D biplane volumetric lef t ventricular ejection fraction 65%. 5. Normal cardiac valves. Mild tricuspid regurgitation. 6. Normal inferior vena cava size with n ormal inspiratory collapse (>50%). 7. Small circumferential pericardial eff usion. Findings Echo performed at the patient's bedside at [facility]. There are no previous [facility] echocardiograms available for comparison. Anemia, thyrotoxicosis, or another high output state could contribute to the increased Doppler velocities (hemoglobin 10.7 g/dL). LEFT VENTRICLE:Mildly enlarged left vent ricular chamber size. Abnormal left ventricular geometry with eccentric left ventricular hypertrophy. Left ventricular mass index by 2D 102 g/m2. Calculated 2-D biplane volumetric left ventricular ejection fra ction 65%. Left ventricular cardiac index 3.17 l/min/m2. No regional wall motion abnormalities. Normal left ventricular filling pressure. RIGHT VENTRICLE:Mild-moderately enlarged right ventricular chamber size. Normal right ventricular systolic function. Strain imaging examination performed to assess right ventricular function. Averaged right ventricular free wall longitudinal peak systolic str ain is -32% (normal = more negative than -24%). Estimated right ventricular systolic pressure 49 mmHg (right atrial pressure of 5 mmHg). ATRIA:Severely enlarged left atrial size . Left atrial volume index 53 ml/m2. Moderately enlarged right atrial size. CARDIAC VALVES:Trileaflet aortic valve. Normal aortic valve. Trivial aortic valve regurgitation. Normal mitral valve. Trivial mitral valve regurgitation. Normal pulmonary valve. Normal pulmonary valve systolic velocities. Trivial pulmonary valve regu rgitation. Normal tricuspid valve. Mild tricuspid valve regurgitation. OTHER ECHO FINDINGS:Normal inferior vena cava size with normal inspiratory collapse (>50%). Normal sinus of Valsalva diameter (diameter 39 mm). Normal mid ascending aorta diameter (diameter 39 mm at mid level). Abdominal aorta incompletely visualized due to bandages post-op. No atrial level shunt by color flow imaging. No intracardiac mass or thrombus, but the left atrial appendage cannot be visualized adequately with transthoracic echo to exclude thrombus i n this location. Prominent anterior and apical epicardial fat layer. Small circumferential pericardial effusion. For the complete report, see the [employer] Documents. Martinez Rock M.D., M.P.H. CV ECHO PROCEDURES Heparin Anti-Xa Assay (10/03/2021 12:18 PM RECREATION ATTENDANT) athologist Signature Heparin 0.20 IU/mL 10/03/2021 [facility] Anti-Xa, P 1:01 PM RECREATION ATTENDANT Comment: UFH therapeutic range: ?? 0.30-0.70 IU/mL LMWH therapeutic range: 0.50-1.00 IU/mL 0.50-1.00 IU/mL for twice daily dosing ? ? 1.00-2.00 IU/mL for once daily dosing (sample obtained 4-6 hours following sub cutaneous injection) LMWH prophylactic range:0.10-0.30 IU/mL ----ADDITIONAL INFORMATION---- Heparin Anti-Xa is used to measure hepar in concentrations in patients receiving low molecular weig ht heparin (LMWH) or unfractionated heparin (UFH). Specimen Anatomical Collection Method Collection Time Receive d Time (Source) Location / / Volume Laterality Blood (Blood, 10/03/2021 12:18 10/03/2021 Venous) PM RECREATION ATTENDANT 12:26 PM RECREATION ATTENDANT Dale Welsh M.D. LAB BLOOD NON ADD-ON Performing Organization Address City/State/ZIP Code Phon e Number [facility] - [address] [place], [place] [address] [facility] [place] [address] Laboratories-[facility] [address] [place] Lower Extremity Veins Bilateral (10/03/2021 9:16 AM RECREATION ATTENDANT) Anatomical Region Laterality Modality Lower Extremity, Ultrasound RST LOS, Ultrasound ARZ LOS, Balaji ateral Ultrasound Ultrasound FLA LOS Specimen (Source) Anatomical Collection Method Collection Time Re ceived Time Location / / Volume Laterality 10/03/2021 9:28 AM RECREATION ATTENDANT Impressions 10/03/2021 9:30 AM RECREATION ATTENDANT Negative for DVT Narrative 10/03/2021 9:30 AM RECREATION ATTENDANT EXAM: US LOWER EXTREMITY VEINS BILATERAL Exam performed with color and spectral D oppler analysis. COMPARISON: None. FINDINGS: RIGHT: Common Femoral Vein: Negative. Profunda Femoral Vein: Negative. Femoral Vein: Negative. Popliteal Vein: Negative. Gastrocnemius Veins: Negative where seen . Soleal Veins: Negative where seen. Posterior Tibial Veins: Negative where s een. Peroneal Veins: Negative where seen. Great Saphenous Vein: Negative where see n. Small Saphenous Vein: Not evaluated. Popliteal Fossa: Negative. Other: n/a LEFT: Common Femoral Vein: Negative. Profunda Femoral Vein: Negative. Femoral Vein: Negative. Popliteal Vein: Negative. Gastrocnemius Veins: Negative where seen . Soleal Veins: Negative where seen. Posterior Tibial Veins: Negative where s een. Peroneal Veins: Negative where seen. Great Saphenous Vein: Negative where see n. Small Saphenous Vein: Not evaluated. Popliteal Fossa: Negative. Other: n/a Information on venous thrombosis and man agement can be found on the [employer] site. Link [email or web address] Procedure Note Saeid Moe M.D. - 10/03/2021Formatti ng of this note might be different from the original. EXAM: US LOWER EXTREMITY VEINS BILATERAL Exam performed with color and spectral D oppler analysis. COMPARISON: None. FINDINGS: RIGHT: Common Femoral Vein: Negative. Profunda Femoral Vein: Negative. Femoral Vein: Negative. Popliteal Vein: Negative. Gastrocnemius Veins: Negative where seen . Soleal Veins: Negative where seen. Posterior Tibial Veins: Negative where s een. Peroneal Veins: Negative where seen. Great Saphenous Vein: Negative where see n. Small Saphenous Vein: Not evaluated. Popliteal Fossa: Negative. Other: n/a LEFT: Common Femoral Vein: Negative. Profunda Femoral Vein: Negative. Femoral Vein: Negative. Popliteal Vein: Negative. Gastrocnemius Veins: Negative where seen . Soleal Veins: Negative where seen. Posterior Tibial Veins: Negative where s een. Peroneal Veins: Negative where seen. Great Saphenous Vein: Negative where see n. Small Saphenous Vein: Not evaluated. Popliteal Fossa: Negative. Other: n/a Information on venous thrombosis and man agement can be found on the [employer] site. Link [email or web address] IMPRESSION: Negative for DVT Dale MCCLENDON US PROCEDURES Heparin Anti-Xa Assay (10/03/2021 5:22 AM RECREATION ATTENDANT) P athologist Signature Heparin 0.24 IU/mL 10/03/2021 DTL Anti-Xa, P 5:57 AM RECREATION ATTENDANT Comment: UFH therapeutic range: ?? 0.30-0.70 IU/mL LMWH therapeutic range: 0.50-1.00 IU/mL 0.50-1.00 IU/mL for twice daily dosing ? ? 1.00-2.00 IU/mL for once daily dosing (sample obtained 4-6 hours following sub cutaneous injection) LMWH prophylactic range:0.10-0.30 IU/mL ----ADDITIONAL INFORMATION---- Heparin Anti-Xa is used to measure hepar in concentrations in patients receiving low molecular weig ht heparin (LMWH) or unfractionated heparin (UFH). Specimen Anatomical Collection Method Collection Time Receive d Time (Source) Location / / Volume Laterality Blood (Blood, 10/03/2021 5:22 AM 10/04/19 5:33 Venous) RECREATION ATTENDANT AM RECREATION ATTENDANT Dale Welsh M.D. LAB BLOOD NON ADD-ON Performing Organization Address City/State/ZIP Code Phon e Number [facility] - [address] [place] [phone] [facility] [place] [address] Laboratories-[facility] [address] [facility] (ABNORMAL) CBC without Differential (10/03/2021 5:22 AM RECREATION ATTENDANT) [facility] gist Method Time Signature Hemoglobin 10.7 (L) 11.6 - 10/03/2021 DTL 15.0 g/dL 5:40 AM RECREATION ATTENDANT Hematocrit 34.3 (L) 35.5 - 10/03/2021 DTL 44.9 % 5:40 AM RECREATION ATTENDANT Erythrocytes 3.78 (L) 3.92 - 10/03/2021 DTL 5.13 5:40 AM RECREATION ATTENDANT x10(12)/L MCV 90.7 78.2 - 10/03/2021 DTL 97.9 fL 5:40 AM RECREATION ATTENDANT RBC Distrib Width 14.6 12.2 - 10/03/2021 DTL 16.1 % 5:40 AM RECREATION ATTENDANT Platelet Count 184 157 - 371 10/03/2021 DTL x10(9)/L 5:40 AM RECREATION ATTENDANT Leukocytes 10.0 (H) 3.4 - 9.6 10/03/2021 DTL x10(9)/L 5:40 AM RECREATION ATTENDANT Specimen Anatomical Collection Method Collection Time Receive d Time (Source) Location / / Volume Laterality Blood (Blood, 10/03/2021 5:22 AM 10/04/19 22 5:33 Venous) RECREATION ATTENDANT AM RECREATION ATTENDANT Dale Welsh M.D. LAB BLOOD ADD-ON Performing Organization Address City/[facility] Phon e Number [facility] - [address] [place], [place] [address] [facility] [place] [address] Laboratories-[address] APTT (Activated Partial Thromboplastin Time) (10/02/2021 10:23 PM RECREATION ATTENDANT) P athologist Signature Activated 30 25 - 37 sec 10/02/2021 METH Partial 10:38 PM RECREATION ATTENDANT Thrombopl Time, P Specimen Anatomical Collection Method Collection Time Receive d Time (Source) Location / / Volume Laterality Blood (Blood, 10/02/2021 10:23 10/02/2021 Venous) PM RECREATION ATTENDANT 10:27 PM RECREATION ATTENDANT Dale Welsh M.D. LAB BLOOD ADD-ON Performing Organization Address [facility] Phon e Number [facility] - [address] [place], [place] [address] [facility] [place] [address] [facility]-[address] Chest Angiogram and Pulmonary Arteries with IV Contrast (10/02/2021 9:51 PM RECREATION ATTENDANT) Anatomical Region Laterality Modality Chest, Cardiovascular RST LOS, Thoracic N/A Computed Tomography, Computed ARZ LOS, Thoracic FLA LOS Tomography Specimen (Source) Anatomical Location Collection Method / Collectio n Time Received Time / Laterality Volume Impressions 10/02/2021 10:03 PM RECREATION ATTENDANT 1. Positive for right-sided segmental ac [place] pulmonary emboli. 2. Atelectasis in the lung bases. 3. Cardiomegaly with small pericardial e ffusion. Findings discussed with Dale Welsh M.D. ([id number]) on 10/02/2021 at 9:51 PM. Narrative 10/02/2021 10:03 PM RECREATION ATTENDANT EXAM: ??CT CHEST ANGIOGRAM AND PULMONARY ARTERIES WITH IV CONTRAST Including 3D image post-processing. COMPARISON: ??None FINDINGS: VASCULAR FINDINGS: Positive for segmental emboli in the rig ht upper and middle lobes pulmonary arteries [series 5 image 99 and 144]. No definite left-sided embo li. No evidence of right heart strain. Mild vascular calcification including coronary artery calcification. Mild cardiomegaly. Small pericardial effusion. ADDITIONAL FINDINGS: Atelectasis in the lower lobes and right upper lobe. Small amount of high attenuation material in the stomach most likely ingested materia l. Hypertrophic changes thoracic spine. Dale Welsh M.D. IMG CT PROCEDURES DX Chest Portable 1 View (10/02/2021 7:23 PM RECREATION ATTENDANT) Anatomical Region Laterality Modality Chest, Thoracic RST LOS, Thoracic ARZ LOS, Thoracic N/A Digital Radiography FLA LOS Specimen (Source) Anatomical Collection Method Collection Time Re ceived Time Location / / Volume Laterality 10/02/2021 7:27 PM RECREATION ATTENDANT Impressions 10/02/2021 7:33 PM RECREATION ATTENDANT Low lung volumes which accentuate the cardiomediastinal silhouette. No pneumothorax. Elevation of the right hemidiaphragm. Ti ny left pleural effusion. Bibasilar atelectasis. Curvilinear lucency along the right hemidiaphragm ma y represent free air, which is expected in the immediate postoperative setting. Narrative 10/02/2021 7:33 PM RECREATION ATTENDANT EXAM: ??DX CHEST PORTABLE 1 VIEW Procedure Note Charlene Lackey M.B., Ch.B. - 09/2021 EXAM: DX CHEST PORTABLE 1 VIEW IMPRESSION: Low lung volumes which accentuate the ca rdiomediastinal silhouette. No pneumothorax. Elevation of the right hemidiaphragm. Ti ny left pleural effusion. Bibasilar atelectasis. Curvilinear lucency along the right hemidiaphragm ma y represent free air, which is expected in the immediate postoperative setting. Martinez Rock M.D., M.P.H. IMG DIAGNOSTIC IMAGING P ROCEDURES (ABNORMAL) CBC without Differential (10/02/2021 12:26 AM RECREATION ATTENDANT) [facility] Method Time Signature Hemoglobin 11.7 11.6 - 10/02/2021 DTL 15.0 g/dL 1:23 AM RECREATION ATTENDANT Hematocrit 37.3 35.5 - 10/02/2021 DTL 44.9 % 1:23 AM RECREATION ATTENDANT Erythrocytes 4.17 3.92 - 10/02/2021 DTL 5.13 1:23 AM RECREATION ATTENDANT x10(12)/L MCV 89.4 78.2 - 10/02/2021 DTL 97.9 fL 1:23 AM RECREATION ATTENDANT RBC Distrib Width 14.1 12.2 - 10/02/2021 DTL 16.1 % 1:23 AM RECREATION ATTENDANT Platelet Count 205 157 - 371 10/02/2021 DTL x10(9)/L 1:23 AM RECREATION ATTENDANT Leukocytes 11.1 (H) 3.4 - 9.6 10/02/2021 DTL x10(9)/L 1:23 AM RECREATION ATTENDANT Specimen Anatomical Collection Method Collection Time Receive d Time (Source) Location / / Volume Laterality Blood (Blood, 10/02/2021 12:26 10/02/2021 1:17 Venous) AM RECREATION ATTENDANT AM RECREATION ATTENDANT Martinez Rock M.D., M.P.H. LAB BLOOD ADD-ON Performing Organization Address City/State/ZIP Code Phon e Number [facility] - [address] [place] [address] [phone] [facility] [place] [address] [facility] [address] [facility] (ABNORMAL) Basic Metabolic Panel (10/02/2021 12:26 AM RECREATION ATTENDANT) P athologist Signature Potassium, S 4.2 3.6 - 5.2 10/02/2021 DTL mmol/L 1:45 AM RECREATION ATTENDANT Sodium, S 142 135 - 145 10/02/2021 DTL mmol/L 1:45 AM RECREATION ATTENDANT Chloride, S 104 98 - 107 10/02/2021 DTL mmol/L 1:45 AM RECREATION ATTENDANT Bicarbonate, S 27 22 - 29 10/02/2021 DTL mmol/L 1:45 AM RECREATION ATTENDANT Anion Gap 11 7 - 15 10/02/2021 DTL 1:45 AM RECREATION ATTENDANT BUN (Blood Urea 10 6 - 21 10/02/2021 DTL Nitrogen), S mg/dL 1:45 AM RECREATION ATTENDANT Creatinine 0.78 0.59 - 10/02/2021 DTL 1.04 mg/dL 1:45 AM RECREATION ATTENDANT eGFR-Non 77 >=60 10/02/2021 DTL Black/ mL/min/BSA 1:45 AM RECREATION ATTENDANT [place]er Comment: ----ADDITIONAL INFORMATION---- Estimated GFR calculated using the 2009 CKD_EPI creatinine equation. eGFR-Black/ 89 >=60 mL/min/BSA 2021 1:45 AM RECREATION ATTENDANT DTL Comment: ----ADDITIONAL INFORMATION---- Estimated GFR calculated using the 2009 CKD_EPI creatinine equation. Calcium, Total, S 8.2 (L) 8.8 - 10.2 mg/dL 10/02/2021 1:45 AM RECREATION ATTENDANT DTL Glucose, S 145 (H) 70 - 140 mg/dL 10/02/2021 1:45 AM RECREATION ATTENDANT D TL Specimen Anatomical Collection Method Collection Time Receive d Time (Source) Location / / Volume Laterality Blood (Blood, 10/02/2021 12:26 10/02/2021 1:32 Venous) AM RECREATION ATTENDANT AM RECREATION ATTENDANT Martinez Rock M.D., M.P.H. LAB BLOOD ADD-ON Performing Organization Address City/State/ZIP Code Phon e Number [facility] - [address] [place] [phone] [facility] [place] [address] [facility] [address] [facility] DX Abdomen 1 View (10/01/2021 4:54 PM RECREATION ATTENDANT) Anatomical Region Laterality Modality Abdomen, Abdominal RST LOS, Abdominal ARZ LOS, N/A Computed Radiography Abdominal FLA LOS Specimen (Source) Anatomical Collection Method Collection Time Re ceived Time Location / / Volume Laterality 10/01/2021 4:55 PM RECREATION ATTENDANT Impressions 10/01/2021 4:55 PM RECREATION ATTENDANT Negative for postoperative purposes. Narrative 10/01/2021 4:55 PM RECREATION ATTENDANT EXAM: ??DX ABDOMEN 1 VIEW Procedure Note Adeola, Trenton Schroeder M.D. - 10/01/2021Format ting of this note might be different from the original. EXAM: DX ABDOMEN 1 VIEW IMPRESSION: Negative for postoperative purposes. Jessy MCCLENDON DIAGNOSTIC IMAGING PROCE [facility] Surgical Pathology, Frozen Lab (10/01/2021 10:59 AM RECREATION ATTENDANT) Component Value Ref Test Analysis Performed Pathologis t Range Method Time At Signature 10/03/2021 METH 5:24 PM RECREATION ATTENDANT Participated in Fnu Shabnam, 10/03/2021 METH the M.B.B.S -Pathology 5:24 PM Interpretation Fellow RECREATION ATTENDANT Report Nahum NewmanS. 10/03/2021 M[facility] electronically 5:24 PM signed by RECREATION ATTENDANT I verify that I have examined all relevant slides/materials for the specimen(s) and rendered or confirmed the diagnosis. Seen in consultation with: Sybil Doherty M.D. Frozen B. ??Lymph node, left external, biopsy: ??A single (1) lymph 10/03/2021 METH Intraoperative node is negative for tumor. 5:24 PM Report RECREATION ATTENDANT C. ??Lymph node, left para-aortic, biopsy: ??A single (1 of 1) lymph node is positive for metastatic carcinoma. D. 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 The carcinoma invades the entire thickness of the wall (myometrial thickness 2.2 cm). ??Benign fallopian tubes and left ovary. ??Pending further evaluation for final classification and grading on permanent sections. Frozen section histologic interpretation of part B performed by: Starla Funes M.D. Signed by Gladys Newman. 10/01/2021 4:49 PM Gross Description A. ??Received fresh labeled sigmoid nodule is a 1.1 x 0.7 10/03/2021 METH x 5:24 PM 0.4 cm fragment of rivero-red soft tissue. ??All submitted for RECREATION ATTENDANT permanent sections only. ??Grossed by Leeanne TrejoH.SVAN [place]([facility])/EK. B. ??Received fresh labeled left external iliac lymph node is a 3.5 x 2 x 0.5 cm lymph node. ??Lymph node submitted for frozen and permanent sections. ??Grossed by Andres Daugherty M.D. -Pathology Resident. C. ??Received fresh labeled left para-aortic lymph node is a 5 x 1.5 x 1 cm grossly positive lymph node. ??Lymph node submitted for frozen and permanent sections. ??Grossed by Leeanne HungH.VAN [place]cl[place]([facility]). D. ??Received fresh labeled uterus, bilateral fallopian tubes and ovaries is a 179 gram uterus without cervix with attached bilateral fallopian tubes and left ovary. Attached is a strip of bladder peritoneum measuring 6.5 x 4.1 x 0.2 cm. ??The uterine serosa has serosal implants. ??There is a 7 x 6 x 3.3 cm endophytic mass in the inferior and posterior endometrial cavity, grossly invading through the serosa and into the fat. ??There is a 2.5 x 1.5 x 0.3 cm polyp on the endometrial cavity. ??The myometrial thickness is 2.2 cm. There are no leiomyomas. ?? Grossly, no right ovary was able to be identified. ??There is a 6 x 0.8 cm right fallopian tube which has multiple paratubal cysts. ??There is a 3 x 2 x 0.9 cm left ovary with a smooth outer surface and a solid cut surface with a 7.5 x 1 cm left fallopian tube which has multiple paratubal cysts. ??Wad Blanking Press Adjuster tissue submitted for frozen and permanent sections. ??Grossed by Andres Daugherty M.D. -Pathology Resident. E. ??Received fresh labeled bladder peritoneum is a 7 x 2.8 x 0.3 cm portion of red membranous and focally nodular tissue with cautery. ??Wad Blanking Press Adjuster tissue submitted for permanent sections only. ??Grossed by Hardeep Rondon M.S., VAN([facility]). F. ??Received fresh labeled cervix is an unoriented trachelectomy specimen with ragged superior edges and no grossly identifiable lesions. ??Wad Blanking Press Adjuster tissue submitted for permanent sections only. ??Grossed by Hardeep Rondon M.S., VAN([facility]). G. ??Received fresh labeled omentum is a 34 x 10 x 1.5 cm portion of omentum. ??No masses are identified grossly. Wad Blanking Press Adjuster tissue submitted for permanent sections only. Grossed by Hardeep Rondon M.S., PA([facility])/EK. H. ??Received fresh labeled right pelvic lymph node is a 2 x 1.6 x 1.2 cm lymph node. ??Lymph nodes are submitted for permanent sections only. ??Grossed by Hardeep Rondon M.S., PA([facility])/EK. Block Summary A Sigmoid nodule 10/03/2021 METH A1 Sigmoid nodule 5:24 PM RECREATION ATTENDANT B Left external iliac lymph node B1 Left external iliac lymph nodes 1of2(B1) B2 Left external iliac lymph nodes 1of2(B1) ??-frozen B3 Left external iliac lymph nodes 2of2(B2) B4 Left external iliac lymph nodes 2of2(B2) -frozen C Left para-aortic lymph node C1 Left para-aortic lymph node 1of4 (C1)-frozen C2 Left para-aortic lymph node 2of4 (C1) C3 Left para-aortic lymph node 3of4 (C1) C4 Left para-aortic lymph node 4of4 (C1) D Uterus, bilateral fallopian tubes and ovaries D1 Bladder peritoneum - frozen D2 Right fimbria - frozen D3 Right fallopian tube - frozen D4 Left fimbria - frozen D5 Left fallopian tube - frozen D6 Endometrial polyp - frozen D7 Posterior mass to uninvolved endometrium - frozen D8 Posterior mass to serosa - frozen D9 Anterior mass to serosa - frozen D10 Left ovary - frozen D11 Right adnexal tissue, ovary? - frozen D12 Posterior mass 1 D13 Posterior mass 2 D14 Anterior mass 1 D15 Anterior mass 2 D16 Anterior mass 3 E Bladder peritoneum E1 Bladder peritoneum-1 E2 Bladder peritoneum-2 F Cervix F1 Cervix -1 F2 Cervix -2 G Omentum G1 Omentum 1 G2 Omentum 2 G3 Omentum 3 G4 Omentum 4 G5 Omentum 5 H Right pelvic lymph node H1 Right pelvic lymph node 1of2(H) H2 Right pelvic lymph node 2of2(H) Disclaimer This test was developed and its performance characteri [facility] 10/03/2021 METH determined by [facility] in a manner consistent with CLIA 5:24 PM requirements. This test has not been cleared or approved by RECREATION ATTENDANT the [place]. Food and Drug Administration. Addendum Genetic testing for HER2, Misc Tumor, FISH, Ts (H2MT) ??will 10/16/2021 METH be performed and resulted in the patient's medical record. 7:22 PM CDT Signed by Magnus Hernandez M.D. 10/16/2021 7:22 PM MMR Protein, IHC Only, Tumor (IHC) will be performed and resulted in the patient's medical record. Signed by Cesario Pierce M.D. 10/16/2021 3:30 PM The neoplastic cells show focal positive staining with PAX8 (performed on blocks D12 and D14). Signed by Sal Newman 10/10/2021 1:14 PM Comment: REVISED RESULTS Interpretation FINAL DIAGNOSIS 10/16/2021 7:22 PM CDT METH A. 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 B. ??Lymph node, left external iliac, biopsy: ??A single (1) lymph node is positive for metastatic carcinoma. C. ??Lymph node, left para-aortic, biopsy: ??A single (1) lymph node is positive for metastatic carcinoma, consistent with serous carcinoma. D. 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 ??The cervix is submitted separately (see part F). ??Lymphovascular invasion is identified. ??Fallopian tubes and left ovary are uninvolved. See comment and synoptic report. COMMENT The immunohistochemical stains performed on paraffin block D12 and D14. The carcinoma is diffusely and strongly positive for p16 and P53 (overexpressed, mutant type staining pattern), and is negative for ER, napsin and WT1. The immunostaining pattern along with morphology is consistent with serous carcinoma. Seen in consultation with Brady Peñaloza. ??Peritoneum, bladder, excision: ??Negative for carcinoma . F. ??Cervix, trachelectomy: ??Negative for carcinoma. G. ??Omentum, omentectomy: ??Negative for carcinoma. H. ??Lymph node, right pelvic, biopsy: ??A single (1) lymph node is positive for metastatic carcinoma. SYNOPTIC REPORT: Endometrial Carcinoma Procedure: Total hysterectomy and bilateral salpingo-oophorectomy Specimen Integrity: Intact Tumor Site: Endometrium Tumor Size: Greatest dimension: ??7 cm ? Additional dimensions: ??6 x 3.3 cm Histologic Type: Serous carcinoma Histologic Grade: ??Not applicable Myometrial Invasion: Depth of myometrial invasion: ??22 mm ? Myometrial thickness: ??22.1 mm ? Percentage of myometrial invasion: ??>99% Adenomyosis: Not identified Uterine Serosa Involvement: Present Cervical Stromal Involvement: ??Not identified Other Tissue/Organs Involvement: Not identified Peritoneal / Ascitic Fluid: NA Lymphovascular Invasion: Present Margin Status: Not applicable Regional Lymph Node Status Tumor Present in Pelvic Lymph Nodes ?? Total Number of Pelvic Nodes with Macrometastasis: 1 ?? Total Number of Pelvic Nodes with Micrometastasis: 1 ?? Total Number of Pelvic Nodes with Isolated Tumor Cells: 0 ?? Laterality of Pelvic Nodes with Tumor: Left and right Tumor Present in Para-aortic Lymph Nodes ?? Total Number of Para-aortic Nodes with Macrometastasis: 1 ?? Total Number of Para-aortic Nodes with Micrometastasis: 0 ?? Total Number of Para-aortic Nodes with Isolated Tumor Cells: 0 ?? Laterality of Para-aortic Nodes with Tumor: Left Total Number of Pelvic Nodes Examined: 2 Number of Pelvic [place] Nodes Examined: na Total Number of Para-aortic Nodes Examined: 1 Total Number of Para-aortic sentinel Nodes Examined: na Distant Metastasis: ??Not applicable Pathologic Staging (AJCC, 8th edition) TNM Descriptors: Not applicable Tumor Modifier: ??Not applicable pT Category: pT3a Regional Lymph Node Modifier: Not applicable pN Category: pN2a pM Category: Not applicable FIGO Stage (2018): IIIC2 The synoptic report incorporates information from all relevant surgical material and includes all required data elements of the current CAP Cancer Protocol. Specimen (Source) Anatomical Collection Method Collection Time Re ceived Time Location / / Volume Laterality Tissue (Colon) 10/01/2021 10:59 AM RECREATION ATTENDANT Tissue (Lymph 10/01/2021 11:17 Node) AM RECREATION ATTENDANT Tissue (Lymph 10/01/2021 12:54 Node) PM RECREATION ATTENDANT Tissue (Uterus) 10/01/2021 1:26 PM RECREATION ATTENDANT Tissue (Bladder) 10/01/2021 1:29 PM RECREATION ATTENDANT Tissue (Cervix) 10/01/2021 2:09 PM RECREATION ATTENDANT Tissue (Omentum) 10/01/2021 2:48 PM RECREATION ATTENDANT Tissue (Lymph 10/01/2021 3:07 PM Node) RECREATION ATTENDANT Narrative This result has an attachment that is no t available. Jessy Pineda M.D. LAB SURG PATH ORDERABLES Performing Organization Address City/State/[facility] Phon e Number [facility] - [address] [place] [phone] [facility] M[place], [place] [id number] [place] [address] (ABNORMAL) Cytology Non-CARTOGRAPHY PROFESSOR (10/01/2021 10:16 AM RECREATION ATTENDANT) Component Value Ref Test Analysis Performed Pathologis t Range Method Time At [facility] [place] (A) 10/03/2021 DTL 12:28 PM RECREATION ATTENDANT Report Eddie Arteaga M.D., Ph.D. 10/03/2021 DTL electronically 12:28 PM signed by RECREATION ATTENDANT I verify that I have examined all relevant slides/materials for the specimen(s) and rendered or confirmed the diagnosis. (A) Gross Received 90 cc of 10/03/2021 DTL Description clear fluid. (A) 12:28 PM RECREATION ATTENDANT Source A. Peritoneal, 10/03/2021 DTL Pelvic, washing (A) 12:28 PM RECREATION ATTENDANT Interpretation A. Peritoneal, Pelvic, washing (ThinPrep/cell block) : 10/03/2021 DTL Atypical. ??Abnormal epithelial cells, favor 12:28 PM reactive/degenerative etiology. RECREATION ATTENDANT Immunohistochemical studies were performed. ??Stains of Urbano-EP4, MOC31, D2-40, calretinin and Claudin-4 support the diagnosis. (A) Specimen (Source) Anatomical Collection Method Collection Time Re ceived Time Location / / Volume Laterality Fluid (Peritoneal 10/01/2021 10:16 Fluid) AM RECREATION ATTENDANT Narrative This result has an attachment that is no t available. Jessy Pineda M.D. 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 (HCC) documented in this encounter Admitting Diagnoses Diagnosis Malignant Neoplasm Of Uterus Endometrial (HCC) documented in this encounter Administered Medications Inactive Administered Medications - up to 3 most recent administrations Medication Order MAR Action Action Date Dose Rate Site acetaminophen tablet 1,000 mg Given 10/01/2021 7:36 AM RECREATION ATTENDANT 1,000 mg (TYLENOL) 1,000 mg, oral, Once, On Thu10/01/21 at 0745, For 1 dose, Pre-Op, In Pre Op holding (PWA) acetaminophen tablet 1,000 mg (TYLENOL) Given 10/07/2021 2:27 PM RECREATION ATTENDANT 1,000 mg 1,000 mg, oral, Every 6 hours, First dose on Thu10/01/21 at 2100, not to exceed 4 grams in 24 hours. Given 10/07/2021 8:39 AM RECREATION ATTENDANT 1,000 mg Given 10/07/2021 2:42 AM RECREATION ATTENDANT 1,000 mg albuterol nebulizer solution 2.5 mg Given 10/07/2021 5:24 PM RECREATION ATTENDANT 2.5 mg 2.5 mg, nebulization, Every 8 hours PRN, wheezing, shortness of breath, Starting on Thu10/01/21 at 1820 Given 10/06/2021 10:33 PM RECREATION ATTENDANT 2.5 mg Given 10/05/2021 8:26 PM RECREATION ATTENDANT 2.5 mg apixaban tablet 10 mg (ELIQUIS) Given 10/05/2021 8:27 PM RECREATION ATTENDANT 10 mg 10 mg, oral, 2 times daily, First dose on Thu10/05/21 at 1245 Given 10/05/2021 1:07 PM RECREATION ATTENDANT 10 mg apixaban tablet 10 mg (ELIQUIS) Given 10/07/2021 8:40 AM RECREATION ATTENDANT 10 mg 10 mg, oral, 2 times daily, First dose (after last modification) on Thu10/06/21 at 0900, For 10 days Given 10/06/2021 8:11 PM RECREATION ATTENDANT 10 mg Given 10/06/2021 9:16 AM RECREATION ATTENDANT 10 mg ceFAZolin in dextrose (iso-os) IVPB 2 New Bag 10/02/2021 1:50 PM RECREATION ATTENDANT 2 g 200 mL/hr g (ANCEF) 2 g, intravenous, at 200 mL/hr, Administer over 30 Minutes, Every 8 hours, First dose on Thu10/01/21 at 2200, For 24 hours, Drug Monitoring Program: Pharmacist to adjust medication dosing based on indication and drug clearance factors., Indications: Prophylaxis, surgical New Bag 10/02/2021 6:01 AM RECREATION ATTENDANT 2 g 200 mL/hr New Bag 10/01/2021 9:22 PM RECREATION ATTENDANT 2 g 200 mL/hr dextromethorphan-guaiFENesin 10-100 mg/5 mL Given 10/06/2021 9:1 7 AM RECREATION ATTENDANT 5 mL syrup 5 mL (ROBITUSSIN-DM) 5 mL, oral, Every 4 hours PRN, cough, Starting on 10/05/21 at 2052 Given 10/06/2021 1:37 AM RECREATION ATTENDANT 5 mL fluticasone propionate 50 mcg/actuation Given 10/07/2021 8:41 AM RECREATION ATTENDANT 2 sprays nasal spray 2 spray (FLONASE) 2 spray, each nostril, 2 times daily, First dose on Thu10/01/21 at 2100 Given 10/06/2021 8:12 PM RECREATION ATTENDANT 2 sprays Given 10/06/2021 9:17 AM RECREATION ATTENDANT 2 sprays heparin (porcine) 1,000 unit/mL Given 10/05/2021 2:40 AM RECREATION ATTENDANT 3,1 00 Units injection 3,100 Units 3,100 Units (rounded from 3,120 Units = 30 Units/kg ? 104 kg Dosing weight), intravenous, As needed, antiXa 0.1-0.19, Starting on Thu10/02/21 at 2209, Intensity type: Moderate, Anti-Xa < 0.1: Loading Dose (Units/kg): 60, Anti-Xa 0.1-0.19: Loading Dose (Units/kg): 30, Anti-Xa > 0.19: Loading Dose (Units/kg): 0 Given 10/03/2021 7:08 PM RECREATION ATTENDANT 3,100 Units heparin (porcine) 100 Rate/Dose Change 10/05/2021 9:38 AM 16 Units/ kg/hr 16.6 mL/hr Units/mL in NaCl 0.45% RECREATION ATTENDANT 250 mL infusion 0-40 Units/kg/hr ? 104 kg Dosing weight (0-41.6 mL/hr), intravenous, Continuous, Starting on Thu10/02/21 at 2215, For 2 days 17 hours, 25,000 Units in 250 mL, Intensity type: Moderate, Starting Dose (units/kg/hr): 12, Anti-Xa < 0.1: Adjust Dose (Units/kg/hr) by: 4, Anti-Xa < 0.1: Loading Dose (Units/kg): 60, Anti-Xa < 0.1: Repeat anti-Xa: 6 hours, Anti-Xa 0.1-0.19: Adjust Dose (Units/kg/hr) by: 2, Anti-Xa 0.1-0.19: Loading Dose (Units/kg): 30, Anti-Xa 0.1-0.19: Repeat anti-Xa: 6 hours, Anti-Xa 0.2-0.5: Adjust Dose (Units/kg/hr) by: 0, Anti-Xa 0.2-0.5: Repeat anti-Xa: 6 hours. If two consecutive therapeutic result, re-check next AM., Anti-Xa > 0.19: Loading Dose (Units/kg): 0, Anti-Xa 0.51-0.6: Adjust Dose (Units/kg/hr) by: -1, Anti-Xa 0.51-0.6: Repeat anti-Xa: 6 hours, Anti-Xa 0.61-0.9: Hold Infusion: Stop infusion for 1 hour, Anti-Xa 0.61-0.9: Adjust Dose (Units/kg/hr) by: -2, Anti-Xa 0.61-0.9: Repeat anti-Xa: 6 hours after Heparin resumed, Anti-Xa >= 0.91: Hold Infusion: Stop infusion for 2 hours, Anti-Xa >= 0.91: Adjust Dose (Units/kg/hr) by: -4, Anti-Xa >= 0.91: Repeat anti-Xa: 6 hours after Heparin resumed New Bag 10/05/2021 5:03 AM RECREATION ATTENDANT 16 Units/kg/hr 16.6 mL/hr Rate/Dose Change 10/05/2021 2:09 AM RECREATION ATTENDANT 16 Units/kg/hr 16.6 mL/hr heparin (porcine) Given 10/02/2021 1:50 PM RECREATION ATTENDANT 5,000 Units Left Upper Arm injection 5,000 Units (Back) 5,000 Units, subcutaneous, Every 8 hours scheduled, First dose on Thu10/01/21 at 2200 Given 10/02/2021 6:01 AM RECREATION ATTENDANT 5,000 Units Left Upper Arm (Back) Given 10/01/2021 9:22 PM RECREATION ATTENDANT 5,000 Units Left Upper Arm (Back) iohexoL 350 mg iodine/mL solution 1-200 mL Given 10/02/2021 9:40 PM RECREATION ATTENDANT 100 mL (OMNIPAQUE) 1-200 mL, intravenous, Once in imaging, contrast, Starting on Thu10/02/21 at 2125, For 1 dose, Imaging Protocol Orders, Dose per Radiant Medication Guidelines ipratropium-albuteroL 0.5-2.5 mg/3 mL nebulizer Given 10/06/2021 2:49 PM RECREATION ATTENDANT 3 mL solution 3 mL (DUONEB) 3 mL, nebulization, 4 times daily PRN, wheezing, shortness of breath, Starting on Thu10/01/21 at 1820 Given 10/06/2021 12:20 AM RECREATION ATTENDANT 3 mL lactated ringers New Bag 10/01/2021 8:14 PM RECREATION ATTENDANT 40 mL/hr 40 mL/hr 40 mL/hr, intravenous, Continuous, Starting on Thu10/01/21 at 1830 New Bag 10/01/2021 6:43 PM RECREATION ATTENDANT 40 mL/hr 40 mL/hr lactated ringers Continued from OR 10/01/2021 4:58 PM RECREATION ATTENDANT 50 mL/hr 50 mL/hr 50 mL/hr, intravenous, Continuous, Starting on Thu10/01/21 at 1615, PACU & Post-Op loratadine tablet 10 mg (CLARITIN) Given 10/07/2021 8:40 AM RECREATION ATTENDANT 10 mg 10 mg, oral, Daily, First dose on Thu10/02/21 at 0900, loratadine 10 mg oral daily was interchanged for cetirizine 10 mg oral daily Given 10/06/2021 9:16 AM RECREATION ATTENDANT 10 mg Given 10/05/2021 8:31 AM RECREATION ATTENDANT 10 mg magnesium hydroxide suspension 30 mL (MILK OF Given 8:43 PM RECREATION ATTENDANT 30 mL MAGNESIA) 30 mL, oral, 2 times daily, First dose on Thu10/01/21 at 2100, Starting evening of surgery. After first bowel movement discontinue Magnesium hydroxide. Given 10/03/2021 9:43 AM RECREATION ATTENDANT 30 mL Given 10/02/2021 8:38 PM RECREATION ATTENDANT 30 mL metroNIDAZOLE in NaCl (iso-osm) New Bag 10/02/2021 11:18 AM CS T 500 mg 200 mL/hr IVPB 500 mg (FLAGYL) 500 mg, intravenous, at 200 mL/hr, Administer over 30 Minutes, Every 8 hours, First dose on Thu10/01/21 at 1900, For 24 hours, Indications: Prophylaxis, surgical New Bag 10/02/2021 3:44 AM RECREATION ATTENDANT 500 mg 200 mL/hr New Bag 10/01/2021 7:15 PM RECREATION ATTENDANT 500 mg 200 mL/hr tcklzftfft-uletzrgxnbw-trzdzaymkrfxllj Given 10/07/2021 8:42 AM 2 sprays 0.033-0.02-0.033 % nasal spray 2 spray RECREATION ATTENDANT 2 spray, each nostril, 2 times daily, First dose on Thu10/06/21 at 0900, Shake very well prior to each use. Given 10/06/2021 8:12 PM RECREATION ATTENDANT 2 sprays Given 10/06/2021 9:17 AM RECREATION ATTENDANT 2 sprays montelukast tablet 10 mg (SINGULAIR) Given 10/06/2021 8:11 PM RECREATION ATTENDANT 10 mg 10 mg, oral, Daily at bedtime, First dose on Thu10/01/21 at 2100 Given 10/05/2021 8:26 PM RECREATION ATTENDANT 10 mg Given 10/04/2021 8:19 PM RECREATION ATTENDANT 10 mg ondansetron (PF) injection 4 mg (ZOFRAN) Given 10/02/2021 11:40 AM RECREATION ATTENDANT 4 mg 4 mg, intravenous, Every 6 hours PRN, nausea, vomiting, Starting on Thu10/01/21 at 1820, Reassess for nausea or vomiting after at least 10 minutes. If nausea or vomiting persists administer next ordered antiemetic medications (order for antiemetic medication administration ondansetron then droperidol then promethazine). oxyCODONE IR tablet 10 mg (ROXICODONE) Given 10/06/2021 12:18 AM RECREATION ATTENDANT 10 mg 10 mg, oral, Every 4 hours PRN, severe pain or score 7-10 of 10, Administer if pain is unrelieved by acetaminophen, Starting on Thu10/01/21 at 1513, For patients that received intrathecal analgesia, start 24 hours after intrathecal dose given Given 10/05/2021 3:04 PM RECREATION ATTENDANT 10 mg Given 10/03/2021 10:46 AM RECREATION ATTENDANT 10 mg oxyCODONE IR tablet 5 mg (ROXICODONE) Given 10/04/2021 9:27 PM RECREATION ATTENDANT 5 mg 5 mg, oral, Every 4 hours PRN, moderate pain or score 4-6 of 10, Administer if pain is unrelieved by acetaminophen., Starting on Thu10/01/21 at 1513, For patients that received intrathecal analgesia, start 24 hours after intrathecal dose given Given 10/04/2021 12:23 PM RECREATION ATTENDANT 5 mg Given 10/03/2021 4:18 PM RECREATION ATTENDANT [address] tablet 40 mg (PROTONIX) Given 10/07/2021 6:35 AM RECREATION ATTENDANT 40 mg 40 mg, oral, Daily before breakfast, First dose on Thu10/02/21 at 0700, pantoprazole 40 mg oral daily was interchanged for omeprazole 20 or 40 mg oral daily Swallow whole. Do NOT crush, chew, or split tablet. Given 10/06/2021 6:46 AM RECREATION ATTENDANT 40 mg Given 10/05/2021 6:47 AM RECREATION ATTENDANT 40 mg scopolamine base 1 mg Medication Applied 10/01/2021 7:36 AM 1 patch Behind Right over 3 days 1 patch RECREATION ATTENDANT Ear (TRANSDERM SCOP) 1 patch, transdermal, Administer over 72 Hours, Every 72 hours, First dose on Thu10/01/21 at 0745, Pre-Op, Contains 1.5 mg to deliver 1 mg/72 hours. sennosides-docusate sodium 8.6-50 mg per Given 10/06/2021 8:11 P M RECREATION ATTENDANT 1 tablet tablet 1 tablet (SENOKOT-S) 1 tablet, oral, 2 times daily, First dose on Thu10/01/21 at 2100, Starting evening of surgery. Given 10/06/2021 9:16 AM RECREATION ATTENDANT 1 tablet Given 10/05/2021 8:31 AM RECREATION ATTENDANT 1 tablet sertraline tablet 100 mg (ZOLOFT) Given 10/07/2021 8:40 AM RECREATION ATTENDANT 100 mg 100 mg, oral, Every morning, First dose on Thu10/02/21 at 0900 Given 10/06/2021 9:16 AM RECREATION ATTENDANT 100 mg Given 10/05/2021 8:31 AM RECREATION ATTENDANT 100 mg sodium chloride (PF) 0.9 % injection 1-1 00 mL Given 10/02/2021 9:39 PM RECREATION ATTENDANT 35 mL 1-100 mL, intravenous, Once, On Thu10/02/21 at 2130, For 1 dose, Imaging Protocol Orders sodium chloride 0.65 % nasal spray 1 spr ay (OCEAN) 1 spray, each nostril, As needed, congestion, Starting on Thu10/02/21 at 0554 documented in this encounter Active and Recently Administered Medications Times are shown in RECREATION ATTENDANT. Scheduled Medication Order 10/05/2021 10/06/2021 10/07/2021 acetaminophen tablet 1,000 mg (TYLENOL) 0214 (Given - Provider: Lexis Sanz R.N.)0831 (Given - Provider: Monet Gregorio R.N.)1503 (Given - Provider: Monet Gregorio R.N.)2025 (Given - Provider: Lexis Sanz R.N.) 0419 (Given - Provider: Lexis johnson R.N.)0920 (Given - Provider: Monet Gregorio R.N.)154 (Given - Provider: Monet Gregorio R.N.)2010 (Given - Provider: Lexis Sanz R.N.) 024 (Given - Provider: Ree Dudley R.N.)0839 (Given - Provider: Phoebe Holley RDung)1427 (Given - Provider: Phoebe Holley RDung) 1,000 mg, oral, Every 6 hours, First dos e on Thu10/01/21 at 2100, not to exceed 4 grams in 24 hours. apixaban tablet 10 mg (ELIQUIS) (CANCELED) 1307 (Given - Provider: Monet Gregorio R.N.)2026 (Given - Provider: Lexis Sanz RDung) 10 mg, oral, 2 times daily, First dose on Thu10/05/21 at 1245 apixaban tablet 10 mg (ELIQUIS) 0916 (Gi rudy - Provider: Monet Gregorio R.N.)2010 (Given - Provider: Lexis Sanz R.N.) 0840 (Given - Provider: Phoebe Holley R.N.) 10 mg, oral, 2 times daily, First dose ( after last modification) on Thu10/06/21 at 0900, For 10 days fluticasone propionate 50 mcg/actuation nasal spray 2 spray (FLONASE) 0832 (Given - Provider: Monet Gregorio R.N.)2026 (Given - Provider: Lexis Sanz R.N.) 916 (Given - Provider: Monet Gregorio R.N.)2011 (Given - Provider: Lexis Sanz R.N.) 08 (Given - Provider: [employer]) 2 spray, each nostril, 2 times daily, First dose on Thu10/01/21 a t 2099 loratadine tablet 10 mg (CLARITIN) 0831 (Given - Provi justin: Monet Gregorio R.N.) 915 (Given - Provider: Monet Gregorio R.N.) 08 ( Given - Provider: Phoebe Holley R.N.) 10 mg, oral, Daily, First dose on 09/24 at 0900, loratadine 10 mg oral daily was interchanged for cetirizine 10 mg oral daily gsaxdgiaid-yjzthmzjaus-sapjdohlxqywxkk 0.033-0.02-0.033 % na minal spray 2 spray 916 (Given - Provider: Monet Gregorio R.N.)2011 (Given - Provider: Lexis Sanz R.N.) 0842 (Given - Provider: [employer]) 2 spray, each nostril, 2 times daily, Fi rst dose on Thu10/06/21 at 0900, Shake very well prior to each use. montelukast tablet 10 mg (SINGULAIR) 2025 (Given - Pro vider: Lexis Sanz R.N.) 2010 (Given - Provider: Lexis Sanz R.N.) 10 mg, oral, Daily at bedtime, First dose on Thu10/01/[address] tablet 40 mg (PROTONIX) 0647 (Given - Provider: Lexis Sanz R.N.) 0646 (Given - Provider: Lexis Sanz R.N.) 0635 (Given - Provider: Ree Dudley R.N.) 40 mg, oral, Daily before breakfast, Fir st dose on Thu10/02/21 at 0700, pantoprazole 40 mg oral daily was interchanged for omeprazole 20 or 40 mg oral daily Swallow whole. Do NOT crush, chew, or split tablet. sennosides-docusate sodium 8.6-50 mg per tablet 1 tabl et (SENOKOT-S) 0831 (Given - Provider: Monet Gregorio R.N.)2026 (Not Given - Provider: Lexis Sanz R.N. - Reason: Patient/family refused) 0916 (Given - Provider: Monet Gregorio R.N.)2010 (Given - Provider: Lexis Sanz R.N.) 0840 (Not Given - Provider: Phoebe Holley R.N. - Reason: Patient/family refused) 1 tablet, oral, 2 times daily, First dos e on Thu10/01/21 at 2100, Starting evening of surgery. sertraline tablet 100 mg (ZOLOFT) 0831 (Given - Provid er: Monet Gregorio R.N.) 0916 (Given - Provider: Monet Gregorio R.N.) 0840 ( Given - Provider: Phoebe Holley R.N.) 100 mg, oral, Every morning, First dose on Thu10/02/21 at 0900 Continuous Medication Order 10/05/2021 10/06/2021 10/07/2021 heparin (porcine) 100 Units/mL in NaCl 0.45% 250 mL in fusion (CANCELED) 0209 (Rate/Dose Change - Provider: Lexis Sanz R.N.)0503 (New Bag - Provider: Lexis Sanz R.N.)0708 (Handoff - Provider: Lexis Sanz R.N.)0938 (Rate/Dose Change - Provider: Monet Gregorio R.N.) 0-40 Units/kg/hr ? 104 kg Dosing weight (0-41.6 mL/hr), intravenous, Continuous, Starting on Thu10/02/21 at 2215, For 2 days 17 hours, 25,000 Units in 250 mL, Intensity type: Moderate, Starting Dose (un 1310 (Stopped - Provider: Monet N Krues el, R.N. - Comment: switching to oral eliquis, verified with pharmacy to stop med) its/kg/hr): 12, Anti-Xa < 0.1: Adjust Do se (Units/kg/hr) by: 4, Anti-Xa < 0.1: Loading Dose (Units/kg): 60, Anti-Xa < 0.1: Repeat anti-Xa: 6 hours, Anti-Xa 0.1-0.19: Adjust Dose (Units/kg/hr) b y: 2, Anti-Xa 0.1-0.19: Loading Dose (Un its/kg): 30, Anti-Xa 0.1-0.19: Repeat anti-Xa: 6 hours, Anti-Xa 0.2-0.5: Adjust Dose (Units/kg/hr) by: 0, Anti-Xa 0.2- 0.5: Repeat anti-Xa: 6 hours. If two consecu tive therapeutic result, re-check next A M., Anti-Xa > 0.19: Loading Dose (Units/kg): 0, Anti-Xa 0.51-0.6: Adjust Dose (Units/kg/hr) by: -1, Anti-Xa 0.51- 0.6: Repeat anti-Xa: 6 hours, Anti-Xa 0.61-0.9 : Hold Infusion: Stop infusion for 1 polina r, Anti-Xa 0.61-0.9: Adjust Dose (Units/kg/hr) by: -2, Anti-Xa 0.61-0.9: Repeat anti-Xa: 6 hours after Heparin resumed, Anti-Xa >= 0.91: Hold Infusion: Stop in fusion for 2 hours, Anti-Xa >= 0.91: Adj ust Dose (Units/kg/hr) by: -4, Anti-Xa >= 0.91: Repeat anti-Xa: 6 hours after Heparin resumed PRN Medication Order 10/05/2021 10/06/2021 10/07/2021 albuterol nebulizer solution 2.5 mg 2025 (Given - Prov ider: Lexis Sanz R.N.) 7348 (Given - Provider: Lexis Sanz R.N.) 2147 (Given - Provider: Quyen Shi R.N.) 2.5 mg, nebulization, Every 8 hours PRN, wheezing, shortness of breath, Starting on Thu10/01/21 at 1820 dextromethorphan-guaiFENesin 10-100 mg/5 mL syrup 5 mL (MAMIE STYLES-DM) 0137 (Given - Provider: Lexis Sanz R.N.)0917 (Given - Provider: Monet Gregorio R.N.) 5 mL, oral, Every 4 hours PRN, cough, Starting on Thu10/05/21 at 2052 heparin (porcine) 1,000 unit/mL injection 3,100 Units (CANCELED) 0240 (Given - Provider: Lexis Sanz R.N.) 3,100 Units (rounded from 3,120 Units = 30 Units/kg ? 104 kg Dosing weight), intravenous, As needed, antiXa 0.1-0.19, Starting on Thu10/02/21 at 2209, Intensity type: Moderate, Anti-Xa < 0.1: Loading Dose (Units/kg): 60, Anti-Xa 0.1-0.19: Loading Dose (Units/kg): 30, Anti-Xa > 0.19: Loading Dose (Units/kg): 0 HYDROmorphone (PF) injection 0.4 mg (DILAUDID) 0.4 mg, intravenous, Every 2 hour PRN, f or breakthrough pain, Starting on Thu10/01/21 at 1820, Unrelieved 30 minutes after PRN oral pain medication is used; if unable to take oral pain medication; or if pain is greater than or equal to 7, use instead of oral pain med ication. ipratropium-albuteroL 0.5-2.5 mg/3 mL nebulizer solution 3 m L (DUONEB) 0020 (Given - Provider: Lexis Sanz R.N.)1449 (Given - Provider: Monet Gregorio R.N.) 3 mL, nebulization, 4 times daily PRN, w heezing, shortness of breath, Starting on Thu10/01/21 at 1820 naloxone injection 0.2 mg (NARCAN) 0.2 mg, intravenous, As needed, respirat ory depression, Starting on Thu10/01/21 at 1820, For respiratory rate less than 8 breaths per minute or RASS score of - 3, -4, -5. Apply oxygen to keep oxygen saturations greater than 90% and notify service. ondansetron (PF) injection 4 mg (ZOFRAN) 4 mg, intravenous, Every 6 hours PRN, na usea, vomiting, Starting on Thu10/01/21 at 1820, Reassess for nausea or vomiting after at least 10 minutes. If nausea or vomiting persists administer next ordered antiemetic medications (order for antiem etic medication administration ondansetron then droperidol then promethazine). oxyCODONE IR tablet 10 mg (ROXICODONE)(Linked Group 1) 1504 (Given - Provider: Monet Gregorio R.N.) 0018 (Given - Provider: Lexis Sanz R.N.) 10 mg, oral, Every 4 hours PRN, severe p ain or score 7-10 of 10, Administer if pain is unrelieved by acetaminophen, Starting on Thu10/01/21 at 1513, For patients that received intrathecal analgesia, start 24 hours after intrathecal dose given oxyCODONE IR tablet 5 mg (ROXICODONE)(Linked Group 1) 1504 (See Alternative - Provider: Monet Gregorio R.N.) 0018 (See Alternative - Provider: Lexis Sanz R.N.) 5 mg, oral, Every 4 hours PRN, moderate pain or score 4-6 of 10, Administer if pain is unrelieved by acetaminophen., Starting on Thu10/01/21 at 1513, For patients that received intrathecal analgesia, start 24 hours after intrathecal dose given promethazine injection 6.25 mg (PHENERGAN) 6.25 mg, intravenous, Every 6 hours PRN, nausea, vomiting, Starting on Thu10/01/21 at 1820, RASS must be -2 or higher to administer. Reassess for nausea/vomiting after at least 10 minutes. If nausea or v omiting persists administer next ordered antiemetic medications (order for antiemetic medication administration ondansetron then droperidol then promethazine). sodium chloride 0.65 % nasal spray 1 spray (OCEAN) 1 spray, each nostril, As needed, congestion, Starting on 09/24 at 0554 Linked Groups Order Group 1: oxyCODONE IR tablet 5 mg (ROXICODONE)Jump to med 5 mg, oral, Every 4 hours PRN, moderate pain or score 4-6 of 10, Administer if pain is unrelieved by acetaminophen., Starting on Thu10/01/21 at 1513
For patients that received intrathecal analgesia, start 24 hours after intrathecal dose given
Or oxyCODONE IR tablet 10 mg (ROXICODONE)Jump to med 10 mg, oral, Every 4 hours PRN, severe p ain or score 7-10 of 10, Administer if pain is unrelieved by acetaminophen, Starting on Thu10/01/21 at 1513
For patients that received intrathecal analgesia, start 24 hours after intrathecal dose given
documented in this encounter Care Teams Rehabilitation Services Aide Relationship Specialty Start Date End Date Elsewhere, Pcp PCP - General Internal Medicine 10/01/21 documented as of this encounter
--- OUTSIDE RECORDS SUMMARY | 2022-05-01 16:16 | XMS_ITS | Encounter Summary ---
:1950 Author Organization [facility] Address [address] [place] [id number] Care Team Providers Name Role Phone Elsewhere, Pcp Primary Care Provider Unavailable Encounter Details Date Type Department Care Team Description 10/08/2021 Orders Only Department of Sheila Torres Malignant N eoplasm Of Obstetrics and ACQUISITION COST ESTIMATOR, R.N. Uterus Endometrial Gynecology in [address] [place] [address] (HCC) (Primary Dx) [place], [place] [address] [place] [id number] [place], [place] [phone] (Work) [phone] Social History Tobacco Use Types Packs/Day Years [...] or relatives? How often do you attend jehovah's witness or More than 4 times per year 03/17/2022 tenriism services? 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 [address] [place] [phone] 05/05/2022 Appointment Radiation Oncology Judy Mccall M.D. [address] [place] [address] [phone] 05/06/2022 Appointment Radiation Oncology Judy Mccall M.D. [address] [place] [address] [phone] 05/06/2022 Appointment Radiation Oncology Judy Mccall M.D. [address] [place] [address] [phone] 05/07/2022 Appointment Radiation Oncology Judy Mccall M.D. [address] [place] [address] [phone] 05/08/2022 Appointment Radiation Oncology Judy Mccall M.D. [address] [place] [address] [place] [phone] 05/22/2022 Clinical Communication Admitting/Central Scheduling 05/26/2022 Appointment Radiology Merlyn Rose APRN, C.N.P., M.S.N. [address] [place] [phone] 05/27/2022 Office Visit Oncology Merlyn Rose APRN, C.NAye., M.S.N. 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
--- OUTSIDE RECORDS SUMMARY | 2022-05-01 16:16 | XMS_ITS | Encounter Summary ---
:1950 Author Organization [facility] Address [address] [place] [address] Care Team Providers Name Role Phone Elsewhere, Pcp Primary Care Provider Unavailable Encounter Details Date Type Department Care Team Description 10/01/2021 Ancillary Procedure Department of Gynecology Social History Tobacco Use Types Packs/Day Years [...] or relatives? How often do you attend tenriism or More than 4 times per year 03/17/2022 alevism services? 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 [address] [place] [address] [phone] 05/05/2022 Appointment Radiation Oncology Judy Mccall M.D. [address] [place] [phone] 05/06/2022 Appointment Radiation Oncology Judy Mccall M.D. [address] [place] [phone] 05/06/2022 Appointment Radiation Oncology Judy Mccall M.D. [address] [place] [phone] 05/07/2022 Appointment Radiation Oncology Judy Mccall M.D. [address] [place] [phone] 05/08/2022 Appointment Radiation Oncology Judy Mccall M.D. [address] [place] [address] [phone] 05/22/2022 Clinical Communication Admitting/Central Scheduling 05/26/2022 Appointment Radiology Merlyn Rose APRN, C.N.P., M.S.N. [address] [place] [phone] 05/27/2022 Office Visit Oncology Merlyn Rose APRN, C.N.P., M.S.N. [address] [place] [phone] documented as of this encounter Procedures Procedure Name Priority Date/Time Associated Comments Diagnosis GYNECOLOGY IMAGE Routine 10/01/2021 8:45 AM Resul ts for this EXAM SHAPER SET UP OPERATOR procedure are i n the results section. documented in this encounter Results ROBOT-Gynecology Image Exam (10/01/2021 8:45 AM SHAPER SET UP OPERATOR) Specimen (Source) Anatomical Location Collection Method / Collectio n Time Received Time / Laterality Volume Narrative IIMS - 10/01/2021 4:15 PM SHAPER SET UP OPERATOR This order has been created and auto-finalized to support the import of images acquired without order. The clini brandy documentation to support these images can be found on the encounter bradford t produced images. Provider Not In System IMG NON RAD IMAGING PROCEDUR ES Performing Organization Address City/State/ZIP Code Phon e Number IIMS IIMS NA documented in this encounter Visit Diagnoses Not on filedocumented in this encounter Care Teams Beaming Inspector Relationship Specialty Start Date End Date Elsewhere, Pcp PCP - General Internal Medicine 10/01/21 documented as of this encounter
--- OUTSIDE RECORDS SUMMARY | 2022-05-01 16:16 | XMS_ITS | Encounter Summary ---
:1950 Author Organization [facility] Address [address] [place] [address] Care Team Providers Name Role Phone Elsewhere, Pcp Primary Care Provider Unavailable Encounter Details Date Type Department Care Team Description 10/01/2021 Anesthesia Event [facility]IN OR Bay García M.D. [address] [place] [phone] [address] [facility] Lavell Driscoll, DEPUTY SHERIFF CUSTODY, BRANCH OPERATIONS SPECIALIST [address] [place] [phone] [place] [phone] Anesthesia Record Procedure Summary Procedure Name Responsible Anesthesia Start Anesthesia Stop Anesthesiologist Time Time ROBOTIC EXPLORATION Bay García M.D. 10/01/21 0800 10/01/21 1639 Events Date Time Event Comment 10/01/2021 0747 0800 An Start Machine/Equipmen t Checked Infection Precautions Foll owed Procedure/Site Verified NPO Sta tus Verified Supine Standard ASA Mon itors Applied 0806 An Induction 0807 An Intubation 0809 Turnover to Proceduralist 0839 Proc Start 1027 Quick Note Converted roboti c to open 1106 Quick Note Recruitment marcello ths x 2 1124 Quick Note Recruitment marcello ths x2 1609 Proc Fin 1614 Turnover to ANE Staff 1623 Airway Removal Criteria Met 1623 Extubation/Airway Removed 1639 An End I completed my h andoff to the receiving staff during [facility] we 1. Identified the patient 2. Ident ified the responsible provider 3. Revi ewed the pertinent medical history 4. Discussed the surgical course 5. Review ed intra-op anesthesia management and i ssues during anesthesia 6. Set expectati ons for post-procedure period 7. Allowe d opportunity for questions and ac knowledgement of understanding. 1639 an stop data Name Total fentanyl injection 50 mcg/mL 350 mcg lidocaine 2% (mg) injection 100 mg propofol 10 mg/mL 100 mg rocuronium 10 mg/mL injection 170 mg phenylephrine 100 mcg/mL injection 300 mcg ePHEDrine PF 5 mg/mL syringe injection 50 mg ondansetron 4 mg/2 mL injection 4 mg sugammadex 100 mg/mL injection 250 mg ceFAZolin injection 2,000 mg (ANCEF) 6 g heparin (porcine) injection 5,000 Units 5,000 Units dexamethasone 4 mg/mL injection 8 mg HYDROmorphone PF 2 mg/mL injection 2 mg metroNIDAZOLE 500 mg IVPB 500 mg albuterol HFA inhaler 90 mcg/act 6 puff albumin human bottle 5% 500 mL haloperidol 5 mg/mL injection 1 mg acetaminophen 1,000 mg/100 mL injection 1,000 mg Lactated Ringers Free Drip 1,500 mL lactated ringers free drip 2,000 mL Agents No agents on file. Blood No blood administrations on file. Lines, Drains, and Airways Type Details Placement Removal Wound 10/01/21; 1527; N; 10/01/21 1527 by 10/01/21; Incision; Moira Monzon, R.N. Abdomen; Mid Scope Sites 10/01/21; 1600; 10/01/21 1600 by Abdomen; Upper, Right; Moira Monzon, R.N. 2; Right, Upper; 3; Left, Upper; 4; Left, Upper; steri-strips and primapore Peripheral IV Placement Date: 10/01/21 0800 by 10/07/21 1629 b y 10/01/21; Placement Lavell Driscoll Hutchison, Kaylee M Time: 0800; Catheter DEPUTY SHERIFF CUSTODY, BRANCH OPERATIONS SPECIALIST Size: 18 G; Orientation: Left; Location: Hand; Removal Date: 10/07/21; Removal Time: 1628; Removal Reason: Patient discharged ETT Placement Date: 10/01/21 0807 by 10/01/21 1623 b y 10/01/21; Placement Lavell Driscoll, Kodak Driscoll, Time: 806 (created via DEPUTY SHERIFF CUSTODY, BRANCH OPERATIONS SPECIALIST DEPUTY SHERIFF CUSTODYNUNU Sofia NA procedure documentation); Mask Ventilation: Easy mask; Type: Standard ETT; Single Lumen Tube Size: 7 mm; Cuffed: Yes; Location: Oral; Grade View: Grade 2A; Insertion Attempts: 1; Placement Verification: Bilateral breath sounds, Positive ETCO2, Symmetrical chest wall movement; Removal Date: 10/01/21; Removal Time: 1623 Peripheral IV Placement Date: 10/01/21 0810 by 10/07/21 1630 b y 10/01/21; Placement Lavell Driscoll Hutchison, Kaylee M Time: 809; Catheter DEPUTY SHERIFF CUSTODY, BRANCH OPERATIONS SPECIALIST Size: 16 G; Orientation: Right; Location: Wrist; Removal Date: 10/07/21; Removal Time: 1630; Removal Reason: Patient discharged Indwelling Urinary Placement Date: 10/01/21 0835 by 10/02/21 040 0 by Catheter 10/01/21; Placement Tara Solomon R.N. Rowe, M yra E, R.NYi, Time: 834; Type: C.M.S.R.N. Non-latex; Size: 16 Fr.; Balloon Size: 5 mL (10 ml of water in balloon); Urine Returned: Yes; Removal Date: 10/02/21; Removal Time: 0400 documented in this encounter Social History Tobacco Use Types Packs/Day Years [...] or relatives? How often do you attend evangelical or More than 4 times per year 03/17/2022 latter day services? Do you belong to any clubs or Yes 03/17/2022 organizations such as evangelical groups, unions, fraternal or athletic groups, or [...] to pay for the very basics like [employer] hat hard 03/17/2022 food, housing, medical care, [...] at Date Recorded Female 07/20/2021 9:20 PM CREW CAR DRIVER documented as of this encounter OR Notes Anesthesia Postprocedure Evaluation - Bay García M.D. - 10/01/2021 4:46 PM CST Patient: Nelda Pavon Procedure Summary Date: 10/01/21 Room / Location: [place] [address] / [facility] in [place], [place] Anesthesia Start: 0800 Anesthesia Stop: 1639 Procedures: ROBOTIC EXPLORATION (N/A ) PELVIC LYMPHADENECTOMY (Right ) LYMPHADENECTOMY - PARA -AORTIC (Left ) HYSTERECTOMY ABDOMINAL WITH BILATERAL SALPINGO - OOPHORECTOMY (N/A ) OMENTECTOMY (N/A ) Diagnosis: Malignant Neoplasm Of Uterus Endometrial (HCC) (Malignant Neoplasm Uterus Endometrial (HCC) [C54.1].) Providers: Jessy Pineda M.D. Responsible Provider: Bay García M.D. Anesthesia Type: general ASA Status: 3 Anesthesia Type: general Last vitals Vitals Value Taken Time BP 122/63 10/01/21 1635 Temp Pulse 79 10/01/21 1646 Resp 10 10/01/21 1646 SpO2 95 % 10/01/21 1646 Vitals shown include unvalidated device data. Please reference Vitals flowsheet for most recent vital signs. Anesthesia Post Evaluation Patient Disposition: general care unit Cardiovascular status: hemodynamics (HR & BP) acceptable Respiratory status: patent airway with spontaneous effort Temperature: normothermic Oxygen requirements: nasal cannula Level of consciousness: awake Pain score: pain adequately controlled and/or at baseline Post Op nausea/vomiting: none Hydration status: euvolemic CAR DRIVER Anesthesia Procedure Notes - Lavell Driscoll APRN, CRNA - 10/01/2021 8:46 AM CSTAssociated Order(s): Airway Airway Date/Time: 10/01/2021 8:07 AM Performed by: Lavell Driscoll APRN, CRNA Authorized by: Rafael Houston M.D. Patient location during procedure: OR / Procedure Area PROCEDURE DETAILS: Mask difficulty assessment: easy mask Final airway type: video laryngoscope Laryngeal Manipulation: no Final best view of glottic structures - Cormack/Lehane Score: grade 2A ETT location: oral VL device: glide scope [place] scope blade size: 3 Adult tube size: 7 Adult ETT distance at teeth/gum: 22 Oral tube type: standard ETT Cuffed: yes Number of attempt to successful placement: 1 Airway confirmation: bilateral breath sounds, positive ETCO2 and bilateral chest rise Other previous techniques attempted: none PRE PROCEDURE DETAILS: Pre evaluation for airway management: procedure Urgency: elective Preop assessment of probable difficulty: no difficulty anticipated Preoxygenation: bag valve mask SEDATION / ANESTHESIA Anesthesia method: anesthesia POST PROCEDURE DETAILS: Procedure outcome: successful Airway event: no complications ATTESTATION STATEMENT CAR DRIVER Anesthesia Preprocedure Evaluation - Rafael Houston M.D. - 10/01/2021 7:45 AM CST Preprocedure Anesthesia & H&P Assessment Procedure Summary Date/Time: 10/01/21 0800 Procedures: ROBOTIC-ASSISTED HYSTERECTOMY, BILATERAL SALPINGO OOPHORECTOMY. (N/A ) LYMPHADENECTOMY SENTINEL PELVIC. (Bilateral ) ROBOTIC-ASSISTED LYMPHADENECTOMY, PELVIS VS AORTIC. (N/A ) Diagnosis: Malignant Neoplasm Of Uterus Endometrial (HCC) [C54.1] Pre-op diagnosis: Malignant Neoplasm Uterus Endometrial (HCC) [C54.1]. Location: [address] [facility] / [facility] in [place], [place] Providers: Jessy Pineda M.D. Pertinent components of the patient's history including current problem list, medical history, surgical history, family history, social history, medications and allergies were reviewed. Present illnessand pre-op diagnosis were confirmed. The planned surgery / procedure was verified with the patient /legal guardian. The patient's general health condition remains unchanged RELEVANT COMORBID CONDITIONS RESP (+) Asthma Mild Persistent (HCC) PSYCH (+) Depression Major One Episode Mild (HCC) GI (+) Gastroesophageal Reflux Disease NOS ONC (+) Malignant Neoplasm Of Uterus (HCC) (+) Malignant Neoplasm Of Uterus Endometrial (HCC) Other (+) Morbid Obesity (HCC) (+) Morbid Obesity Body Mass Index >= 35 with Comorbid Condition (HCC) OBJECTIVE PHYSICAL EXAMINATION Airway (HEENT) Mallampati: II TM Distance: >3 FB Neck ROM: Full Mouth Opening: <3 cm Upper Lip Bite Test Class: I Cardiovascular Rhythm: Regular Rate: Normal Cardiovascular Assessment: cardiovascular normal Functional Capacity: <4 METS Pulmonary Pulmonary Assessment: Clear General / Constitutional Constitutional Assessment: Normal General State of Health:: healthy appearing and calm Neurological Neurologic Assessment:??alert ASSESSMENT / PLAN ANESTHESIA PLAN ASA: 3 Anesthesia Plan: general scheduled OP but may admit Patient seen and allergies reviewed, anesthesia plan and risks discussed directly with patient /legal guardian or through an informatica developer. Risks/Benefits/Alternatives of Blood transfusion discussed with patient / legal guardian, including an opportunity to ask questions and/or decline some or all transfusion therapies. The patient / legalguardian consented to the use of all blood products, as deemed medically necessary Approval to Proceed: approved for anesthesia CAR DRIVER documented in this encounter Plan of Treatment Upcoming Encounters Date Type Specialty Care Team Description 05/02/2022 Appointment Radiation Oncology Dot Lopez M.D. [address] [place] [phone] 05/05/2022 Appointment Radiation Oncology Judy Mccall M.D. [address] [place] [phone] 05/06/2022 Appointment Radiation Oncology Judy Mccall M.D. [address] [place] [phone] 05/06/2022 Appointment Radiation Oncology Judy Mccall M.D. [address] [place] [phone] 05/07/2022 Appointment Radiation Oncology Judy Mccall M.D. [address] [place] [phone] 05/08/2022 Appointment Radiation Oncology Judy Mccall M.D. [address] [place] [phone] 05/22/2022 Clinical Communication Admitting/Central Scheduling 05/26/2022 Appointment Radiology Merlyn Rose APRN, C.N.P., M.S.N. [address] [place] [phone] 05/27/2022 Office Visit Oncology Merlyn Rose APRN C.N.P., M.S.N. [address] [place] [phone] documented as of this encounter Procedures Procedure Name Priority Date/Time Associated Comments Diagnosis LDA ANE ENDOTRACHEAL Routine 10/01/2021 8:07 AM R esults for this AIRWAY CREW CAR DRIVER procedure are i n the results section. documented in this encounter Results LDA ANE ENDOTRACHEAL AIRWAY (10/01/2021 8:07 AM CREW CAR DRIVER) Narrative Lavell Driscoll APRN, CRNA - 10/01/2021 8:07 AM CREW CAR DRIVER Lavell Driscoll APRN, CRNA ? 10/01/2021 ??8:46 AM Airway Date/Time: 10/01/2021 8:07 AM Performed by: Lavell Driscoll APRN, CRN A Authorized by: Rafael Houston M.D. Patient location during procedure: OR / Procedure Area PROCEDURE DETAILS: Mask difficulty assessment: easy mask Final airway type: video laryngoscope Laryngeal Manipulation: no ?? Final best view of glottic structures - Cormack/Lehane Score: grade 2A ETT location: oral VL device: glide scope [place] scope blade size: 3 Adult tube size: 7 Adult ETT distance at teeth/gum: 22 Oral tube type: standard ETT Cuffed: yes Number of attempt to successful placemen t: 1 Airway confirmation: bilateral breath so unds, positive ETCO2 and bilateral chest rise Other previous techniques attempted: non e PRE PROCEDURE DETAILS: Pre evaluation for airway management: pr ocedure Urgency: elective Preop assessment of probable difficulty: no difficulty anticipated Preoxygenation: bag valve mask SEDATION / ANESTHESIA Anesthesia method: anesthesia POST PROCEDURE DETAILS: ? Procedure outcome: successful ?? Airway event: no complications ATTESTATION STATEMENT Rafael Houston M.D. ANESTHESIA ORDERABLES documented in this encounter Visit Diagnoses Not on filedocumented in this encounter Administered Medications Inactive Administered Medications - up to 3 most recent administrations Medication Order MAR Action Action Date Dose Rate Site acetaminophen injection Given 10/01/2021 3:16 PM CREW CAR DRIVER 1,000 mg intravenous, Administer over 15 Minutes, As needed, Starting on Thu10/01/21 at 1516, Anesthesia Intra-op albumin human 5 % injection Given 10/01/2021 1:46 PM CREW CAR DRIVER 250 mL intravenous, As needed, Starting on Thu10/01/21 at 1334, Anesthesia Intra-op Given 10/01/2021 1:34 PM CREW CAR DRIVER 250 mL albuterol 90 mcg/actuation inhaler Given 10/01/2021 11:02 AM CREW CAR DRIVER 6 puffs inhalation, As needed, Starting on Thu10/01/21 at 1102, Anesthesia Intra-op ceFAZolin injection 2,000 mg (ANCEF) Given 10/01/2021 2:24 PM CREW CAR DRIVER 2 g 2,000 mg (rounded from 2,600 mg = 25 mg/ kg ? 104 kg Dosing weight), intravenous, Once, On Thu10/01/21 at 0715, For 1 dose, Intra-Op, Preoperatively within 1 hour prior to surgical incision If needed, reconstitute vial per package insert instructions. See IVAG for administration guidelines. , Drug Monitoring Program: Pharmacist to adjust medication dosing based on indication and drug clearance factors., Indications: Prophylaxis, surgical Given 10/01/2021 11:29 AM CREW CAR DRIVER 2 g Given 10/01/2021 8:34 AM CREW CAR DRIVER 2 g dexAMETHasone injection (DECADRON) Given 10/01/2021 8:28 AM CREW CAR DRIVER 8 mg intravenous, As needed, Starting on Thu10/01/21 at 0828, Anesthesia Intra-op ePHEDrine (PF) injection Given 10/01/2021 1:11 PM CREW CAR DRIVER 10 mg intravenous, As needed, Starting on Thu10/01/21 at 0911, Anesthesia Intra-op Given 10/01/2021 11:57 AM CREW CAR DRIVER 5 mg Given 10/01/2021 10:30 AM CREW CAR DRIVER 10 mg fentaNYL injection (SUBLIMAZE) Given 10/01/2021 3:56 PM CREW CAR DRIVER 50 mcg intravenous, As needed, Starting on Thu10/01/21 at 0805, Anesthesia Intra-op Given 10/01/2021 3:52 PM CREW CAR DRIVER 50 mcg Given 10/01/2021 3:18 PM CREW CAR DRIVER 50 mcg haloperidol lactate injection (HALDOL) Given 10/01/2021 2:06 PM CREW CAR DRIVER 1 mg intravenous, As needed, Starting on Thu10/01/21 at 1406, Anesthesia Intra-op heparin (porcine) injection 5,000 Units Given 10/01/2021 8:26 AM CREW CAR DRIVER 5,000 Units 5,000 Units, subcutaneous, Once, On Thu10/01/21 at 0715, For 1 dose, Intra-Op, Administer prior to induction of anesthesia. HYDROmorphone (PF) injection (DILAUDID) Given 10/01/2021 10:43 AM CREW CAR DRIVER 1 mg intravenous, As needed, Starting on Thu10/01/21 at 0902, Anesthesia Intra-op Given 10/01/2021 9:02 AM CREW CAR DRIVER 1 mg lactated ringers New Bag 10/01/2021 11:53 AM CREW CAR DRIVER intravenous, Continuous Infusion: Per Instructions PRN, Starting on Thu10/01/21 at 0807, Anesthesia Intra-op New Bag 10/01/2021 8:07 AM CREW CAR DRIVER lactated ringers New Bag 10/01/2021 10:46 AM CREW CAR DRIVER intravenous, Continuous Infusion: Per Instructions PRN, Starting on Thu10/01/21 at 0810, Anesthesia Intra-op New Bag 10/01/2021 8:10 AM CREW CAR DRIVER lidocaine (PF) (cardiac) injection Given 10/01/2021 8:06 AM CREW CAR DRIVER 100 mg intravenous, As needed, Starting on Thu10/01/21 at 0806, Anesthesia Intra-op metroNIDAZOLE in NaCl (iso-osm) IVPB Given 10/01/2021 11:[address] 500 mg (FLAGYL) intravenous, Administer over 30 Minutes, As needed, Starting on Thu10/01/21 at 1103, Anesthesia Intra-op ondansetron (PF) injection (ZOFRAN) Given 10/01/2021 3:24 PM CREW CAR DRIVER 4 mg intravenous, As needed, Starting on Thu10/01/21 at 1524, Anesthesia Intra-op phenylephrine injection Given 10/01/2021 2:34 PM CREW CAR DRIVER 100 mcg intravenous, As needed, Starting on Thu10/01/21 at 1031, Anesthesia Intra-op Given 10/01/2021 2:24 PM CREW CAR DRIVER 100 mcg Given 10/01/2021 10:31 AM CREW CAR DRIVER 100 mcg propofoL injection (DIPRIVAN) Given 10/01/2021 8:06 AM CREW CAR DRIVER 100 mg intravenous, As needed, Starting on Thu10/01/21 at 0806, Anesthesia Intra-op rocuronium injection (ZEMURON) Given 10/01/2021 2:37 PM CREW CAR DRIVER 10 mg intravenous, As needed, Starting on Thu10/01/21 at 0807, Anesthesia Intra-op Given 10/01/2021 1:20 PM CREW CAR DRIVER 10 mg Given 10/01/2021 11:55 AM CREW CAR DRIVER 30 mg sugammadex injection (BRIDION) Given 10/01/2021 3:41 PM CREW CAR DRIVER 250 mg intravenous, As needed, Starting on Thu10/01/21 at 1541, Anesthesia Intra-op documented in this encounter Care Teams Flask Handler Relationship Specialty Start Date End Date Elsewhere, Pcp PCP - General Internal Medicine 10/01/21 documented as of this encounter
--- OUTSIDE RECORDS SUMMARY | 2022-05-01 16:16 | XMS_ITS | Encounter Summary ---
:1950 Author Organization [facility] Address [address] [place] [address] Care Team Providers Name Role Phone Elsewhere, Pcp Primary Care Provider Unavailable Encounter Details Date Type Department Care Team Description 10/08/2021 Lab RST RO LMP Sheila Torres, Malignant Neoplasm Of [address] [facility] MEAT BUTCHER, R.N. Uterus Endometrial ([place]) [place] [address] [place] [phone] (Wo rk) Social History Tobacco Use Types [...] or relatives? How often do you attend rastafarian or More than 4 times per year 03/17/2022 scientologist services? Do you belong to any clubs or Yes 03/17/2022 organizations such as rastafarian groups, unions, fraternal or athletic groups, or [...] at Date Recorded Female 07/20/2021 9:20 PM RUSSIAN HISTORY PROFESSOR documented as of this encounter Miscellaneous Notes Result Encounter Note - Sheila Torres APRN, C.N.P. - 10/22/2021 12:37 PM CDT I called the patient to let her know that the IHC testing performed on her endometrial cancer tumor showed normal DNA mismatch repair function. This means it is unlikely she harbors Gulilen Syndrome. Patient does note that her grandmother had colon cancer as well as her mother. She states her mother at the age of 52 from colon cancer. Given this family history, and the patient's current diagnosis I did recommend a consultation with our Medical Genetics team to discuss further. Patient is in agreement. Order was placed will contact her to schedule this consultation. All questions answered. documented in this encounter Plan of Treatment Upcoming Encounters Date Type Specialty Care Team Description 05/02/2022 Appointment Radiation Oncology Dot Lopez M.D. [address] [place] [phone] 05/05/2022 Appointment Radiation Oncology Judy Mccall M.D. [address] [place] [phone] 05/06/2022 Appointment Radiation Oncology Judy Mccall M.D. [address] [place] [phone] 05/06/2022 Appointment Radiation Oncology Judy Mccall M.D. [address] [place] [phone] 05/07/2022 Appointment Radiation Oncology Judy Mccall M.D. [address] [place] [phone] 05/08/2022 Appointment Radiation Oncology Judy Mccall M.D. [address] [place] [phone] 05/22/2022 Clinical Communication Admitting/Central Scheduling 05/26/2022 Appointment Radiology Merlyn Rose APRN, C.N.P., M.S.N. [address] [place] [phone] 05/27/2022 Office Visit Oncology Merlyn Rose APRN C.N.P., M.S.N. [address] [place] [phone] documented as of this encounter Procedures Procedure Name Priority Date/Time Associated Diagnosis Comme nts [place] IMMUNO STAIN PER Routine 10/01/2021 10:36 AM Malignant Neop lasm Results for this SPEC EA ADD AB RUSSIAN HISTORY PROFESSOR Of Uterus procedure are in Endometrial (HCC) the result s section. 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 12:19 PM CDT Result Summary INTACT PROTEIN 10/20/2021 DTL EXPRESSION 12:19 PM CDT Interpretation The results of the IHC analysis suggest the presence of 10/20/2021 DTL normal DNA mismatch repair function within the tumor. 12:19 PM However, these results do not completely rule out the CDT possibility of defective DNA mismatch repair within the tumor because approximately 5% of cases with defective mismatch repair do not show absence of protein expression by IHC (Mod Pathol. 2020 December;33(5):871-879 (PMID: [id number])). HEREDITARY IMPLICATIONS These results decrease the likelihood but do not eliminate the possibility that this individual has Guillen syndrome (LS). These results also do not exclude the possibility that this individual's tumor is due to an inherited defect in another gene not involved in DNA mismatch repair. A significant fraction of clinically defined LS cases (30% or more) do not have defective DNA mismatch repair as the underlying genetic basis of their disease. Additionally, we cannot rule out the possibility that this individual or family has LS because this tumor could represent a sporadic occurrence. If there is a strong personal or family history of LS related cancers for this individual or if this individual has multiple tumors, consider microsatellite instability (MSI) testing (MSI / Microsatellite Instability, Tumor) on this tumor or a different tumor to further evaluate the possible role of defective DNA mismatch repair for this individual or family. A genetic consultation may be of benefit. THERAPEUTIC IMPLICATIONS Current data suggest that in advanced stage solid tumors, targeted immunotherapies such as anti-PD-1 therapies are more likely to be effective in mismatch repair-deficient tumors than in mismatch repair-proficient tumors (Science. 2017 Feb 27;357(7353):409-413 (PMID [id number]); J Clin Oncol. 2018 Aug 20:[id number] (PMID [id number])). For interpretation of therapeutic implications of these results, MSI analysis should be considered to confirm ROWDY/MSI-L status in this tumor due to the possibility of discordance between IHC and MSI results. ADDITIONAL INFORMATION Consideration of these results, in light of other clinical information, may aid in clinical management decisions for this patient. These data should be interpreted in the context of the histopathologic findings. A surgical pathology consult may be ordered separately. Comment: ----ADDITIONAL INFORMATION---- Immunohistochemical staining (IHC) is us ed to determine the presence or absence of protein expression for one or more of the following: MLH1, MSH2, MSH6, and PMS2. Lymphocytes and normal e pithelium exhibit strong nuclear staining to serve as positive internal c ontrols for staining of these proteins. Test results should be interpreted in th e context of clinical findings, family history, and other laboratory jyoti a. If results obtained do not match other clinical or laboratory findings, p valerie contact the laboratory for possible interpretation. Misinterpretati on of results may occur if the information provided is inaccurate or in complete. This test was developed and its performa nce characteristics determined by [facility] in a manner consistent with CLIA requirements. This test has not been cleared or approved by the [place] d and Drug Administration. Specimen Anatomical Collection Method Collection Time Receive d Time (Source) Location / / Volume Laterality Varies 10/01/2021 10:36 10/18/2021 5:34 (Endometrium) AM RUSSIAN HISTORY PROFESSOR PM CDT Narrative This result has an attachment that is no t available. Sheila Torres APRN, R.N. LAB GENETIC TESTING Performing Organization Address City/State/ZIP Code Phon e Number [facility] - [address] [place], [place] [address] [facility] [place] [address] [facility] [address] documented in this encounter Visit Diagnoses Diagnosis Malignant Neoplasm Of Uterus Endometrial (HCC) documented in this encounter Care Teams Deckhand Relationship Specialty Start Date End Date Elsewhere, Pcp PCP - General Internal Medicine 10/01/21 documented as of this encounter
--- OUTSIDE RECORDS SUMMARY | 2022-05-01 16:16 | XMS_ITS | Encounter Summary ---
:1950 Author Organization [facility] Address [address] [place] [address] Care Team Providers Name Role Phone Elsewhere, Pcp Primary Care Provider Unavailable Encounter Details Date Type Department Care Team Description 10/08/2021 Orders Only Department of Sheila Torres Malignant N eoplasm Of Obstetrics and ALMOND CUTTING MACHINE TENDER, R.N. 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 [address] [place] [phone] 05/05/2022 Appointment Radiation Oncology Judy Mccall M.D. [address] [place] [phone] 05/06/2022 Appointment Radiation Oncology Judy Mccall M.D. [address] [place] [phone] 05/06/2022 Appointment Radiation Oncology Judy Mccall M.D. [address] [place] [phone] 05/07/2022 Appointment Radiation Oncology Judy Mccall M.D. [address] [place] [phone] 05/08/2022 Appointment Radiation Oncology Judy Mccall M.D. [address] [place] [address] [place] [phone] 05/22/2022 Clinical Communication Admitting/Central Scheduling 05/26/2022 Appointment Radiology Merlyn Rose APRN, C.NYiPYi, M.S.N. [address] [place] [phone] 05/27/2022 Office Visit Oncology Merlyn Rose APRN, C.NLeopoldo, M.S.N. [address] [place] [phone] documented as of this encounter Results Mismatch Repair (MMR) Protein Immunohistochemistry Only, Tumor (10/01/2021 10:36 AM CLINICAL MICROBIOLOGIST) Component Value Ref Test Analysis Performed Pathologis [...] 10/20/2021 DTL 12:19 PM CDT Tissue ID [id number] 10/20/2021 DTL 12:19 PM CDT Released By Cesario Fallon 10/20/2021 DTKathi Pierce M.D. 12:19 PM CDT Result Summary [...] protein expression by IHC (Mod Pathol. 2020 December;33(5):871-877 (PMID: [id number])). HEREDITARY IMPLICATIONS These results decrease the likelihood [...] in mismatch repair-proficient tumors (Science. 2017 Feb 27;357(1300):409-413 (PMID 88803994); J Clin Oncol. 2018 Aug 22:[id number] (PMID [id number])). For interpretation of therapeutic implications of these [...] not match other clinical or laboratory findings, emmanuel padilla contact the laboratory for possible interpretation. Misinterpretati on of results may occur if the information provided is inaccurate or in complete. This test was developed and its performa nce characteristics determined by [facility] in a manner consistent with CLIA requirements. This test has not been cleared or approved by the [place] d and Drug Administration. Specimen Anatomical Collection Method Collection Time Receive d Time (Source) Location / / Volume Laterality Varies 10/01/2021 10:36 10/18/2021 5:34 (Endometrium) AM CLINICAL MICROBIOLOGIST PM CDT Narrative This result has an attachment that is no t available. Sheila Torres APRN RChris. LAB GENETIC TESTING Performing Organization Address City/State/ZIP Code Phon e Number [facility] - [address] [place], [place] [address] [facility] [place] [address] [facility] [address] documented in this encounter Visit Diagnoses Diagnosis Malignant Neoplasm Of Uterus Endometrial (HCC) - Primary documented in this encounter Care Teams Universal Grinder Tool Relationship Specialty Start Date End Date Elsewhere, Pcp PCP - General Internal Medicine 10/01/21 documented as of this encounter
--- OUTSIDE RECORDS SUMMARY | 2022-05-01 16:16 | XMS_ITS | Encounter Summary ---
:1950 Author Organization [facility] Address [address] [place] [address] Care Team Providers Name Role Phone Elsewhere, Pcp Primary Care Provider Unavailable Encounter Details Date Type Department Care Team Description 10/07/2021 Clinical Communication [facility] Randell Tan, Pharm.D., [address] [facility] [place], [place] [address] [facility] [address] [place], [place] [phone] Social History Tobacco Use Types Packs/Day Years [...] or relatives? How often do you attend mandaen or More than 4 times per year 03/17/2022 anabaptist services? Do you belong to any clubs or Yes 03/17/2022 organizations such as mandaen groups, unions, fraternal or athletic groups, or [...] at Date Recorded Female 07/20/2021 9:20 PM PULP AND PAPER TESTER documented as of this encounter Plan of Treatment Upcoming Encounters Date Type Specialty Care Team Description 05/02/2022 Appointment Radiation Oncology Dot Lopez M.D. [address] [place] [phone] 05/05/2022 Appointment Radiation Oncology Judy Mccall M.D. [address] [place] [phone] 05/06/2022 Appointment Radiation Oncology Judy Mccall M.D. [address] [place] [phone] 05/06/2022 Appointment Radiation Oncology Judy Mccall M.D. [address] [place] [phone] 05/07/2022 Appointment Radiation Oncology Judy Mccall M.D. [address] [place] [phone] 05/08/2022 Appointment Radiation Oncology Judy Mccall M.D. [address] [place] [phone] 05/22/2022 Clinical Communication Admitting/Central Scheduling 05/26/2022 Appointment Radiology Merlyn Rose APRN, C.NLeopoldo, M.S.N. [address] [place] [phone] 05/27/2022 Office Visit Oncology Merlyn Rose APRN, C.NLeopoldo, M.S.N. [address] [place] [phone] documented as of this encounter Visit Diagnoses Not on filedocumented in this encounter Care Teams Catalyst Recovery Operator Relationship Specialty Start Date End Date Elsewhere, Pcp PCP - General Internal Medicine 10/01/21 documented as of this encounter
--- OUTSIDE RECORDS SUMMARY | 2022-05-01 16:17 | XMS_ITS | Encounter Summary ---
:1950 Author Organization [facility] Address [address] [place] [address] Care Team Providers Name Role Phone Elsewhere, Pcp Primary Care Provider Unavailable Encounter Details Date Type Department Care Team Description 10/01/2021 Surgery [facility]ST JES[facility] OR Jessy Pineda, ROBOTIC EXPLORATION [address] [place] [address] [address] [facility] [phone] [place] [phone] (Wo rk) Social History Tobacco Use Types [...] More than 4 times per year 03/17/2022 worship services? Do you belong to any clubs or Yes 03/17/2022 organizations such as latter day groups, unions, fraternal or athletic groups, or school groups? How often do you attend meetings of the to 4 times per yea r 03/17/2022 [...] at Date Recorded Female 07/20/2021 9:20 PM WAITER/WAITRESS BAR documented as of this encounter Last Filed Vital Signs Vital Sign Reading Time Taken Comments Blood Pressure 126/60 10/01/2021 6:36 AM WAITER/WAITRESS BAR Pulse 64 10/01/2021 6:36 AM WAITER/WAITRESS BAR Temperature 37.1 ??C (98.78 ??F) 10/01/2021 6:36 AM WAITER/WAITRESS BAR Respiratory Rate 16 10/01/2021 6:36 AM WAITER/WAITRESS BAR Oxygen Saturation 91% 10/01/2021 6:36 AM WAITER/WAITRESS BAR Inhaled Oxygen Concentration - - Weight 104 kg (228 lb 6.3 oz) 10/01/2021 6:36 AM WAITER/WAITRESS BAR Height 163.5 cm (5' 4.37) 10/01/2021 6:36 AM WAITER/WAITRESS BAR Body Mass Index 39.65 10/01/2021 6:36 AM WAITER/WAITRESS BAR documented in this encounter Discharge Summaries Martinez Rock M.D., M.P.H. - 10/07/2021 5:39 PM CST DISCHARGE SUMMARY BRIEF OVERVIEW Hospital: [facility] Discharge Provider: Jessy Pineda M.D. Primary Team: [facility] Gynecologic Surgery - [place] Primary Care Providers: [...] WITH BILATERAL SALPINGO - OOPHORECTOMY, OMENTECTOMY Jessy Pineda M.D.Polen-De, Clarissa L, M.D.Reckhow, Jensen D, M.D., M.P.H. [facility] OR DISCHARGE DISPOSITION Home or Self [...] Results (from the past 168 hour(s)) Cytology Non-CURTAINS AND DRAPERIES SALESPERSON Status: Abnormal Result Value (A) Report electronically [...] Source Comment Collection Info Order Time CYTOLOGY NON-CURTAINS AND DRAPERIES SALESPERSON Peritoneal Fluid Collected By: Jessy Pineda M.D. [...] were provided to the patient and caregiver(s). ER/WAITRESS BAR documented in this encounter Discharge Instructions Discharge InstructionsEliseo Padilla R.N. - 10/01/2021 7:33 AM CST Images [...] with your health care provider. ? 2017 [facility] [employer] ([facility]). All rights reserved. [id number] ER/WAITRESS BAR AttachmentsThe following attachments cannot be sent through Care Everywhere. Acetaminophen (By mouth) (Burkinan)Apixaban (By mouth) (Burkinan)Ondansetron (By mouth, Into the mouth) (Burkinan)Oxycodone, Rapid Release (By mouth) (Burkinan) Laxative, Stimulant Combination (By mouth) (Burkinan)documented in this encounter Medications at Time of [...] (ZyrTEC) 10 Take 1 tablet by 0 07/12/2 010 mg tablet mouth daily. cholecalciferol, vitamin [...] 1 tablet (4 mg 20 tablet 0 /0 01/2022 mg tablet total) by mouth every [...] this encounter Progress Notes Demar Vergara P.T., Anuj., A.T.C. - 10/07/2021 4:00 PM CST Physical [...] mask during therapy session: yes Outcome Measures [facility] Inpatient Short Form: -[facility] Basic Mobility (V.2) How much help from [...] Climbing 3-5 steps with a railing?: None AM-[facility] Basic Mobility (V.2) Raw Score: 23 AM-PAC Basic Mobility (V.2) Standardized Score: 50.88 Interpretation: Clinicians answer the -[facility] Inpatient Short Form based on observed patient [...] - PT: Front-wheeled walker Equipment ordered from [facility] store through center PARTS ROOM ASSISTANT on behalf of patient. Barriers to Discharge [...] activity, Neuromuscular re-education, Gait training, Self-care/home management SOILS TECHNICIAN Visit Trackin Billing: Time Spent with Patient Gait Training (min): 12 min Therapeutic Activity (min): 28 min Total Timed Units (min): 40 min Total Treatment Time (min): 40 min Demar Vergara P.T., Melyssa.P.T., A.T.C. ER/WAITRESS BAR Roman Leon R.R.T. - 10/07/2021 7:14 AM CST 10/07/21712 Nocturnal Oxygen Assessment Asleep Room Air SpO2 83 Percent (SpO2 83% on room air) Oxygen Flow Rate 2 L/min (2 L/Min O2 with CPAP) Nocturnal oxygen assessment completed. Patient SpO2 83% for 5 minutes or greater. Any desaturations on trend lower than patient SpO2 is considered artifact. Damari Alexander, PharmYiD., R.Ph. - 10/07/2021 6:32 AM CST Pharmacist [...] CPA as was stopped days ago per MD directions. Changes to medications anticipated at discharge: Apixaban per vasc med Damari Mcclellan Pharm.D., R.Ph. ER/WAITRESS BAR Martinez Rock MStevan, M.P.H. - 10/07/2021 6:21 AM CST SUBJECTIVE [...] Max:37.1 ??C Weight change: I/O 10/05 0710/06 07 P.O. 1730 1420 Total Intake(mL/kg) 1730 [...] RYiNYi Added automatically from request for surgery [id number] Anxiety Generalized Disorder Asthma Mild Persistent (HCC) [...] emboli - Per Vascular Medicine??consult, continue Eliquis??for intermediate designer anticoagulation (see above). Patient will need a [...] ?? Patient was seen by Dr. Koenig, CURTAINS AND DRAPERIES SALESPERSON Chief Resident, who agrees with plan ?? Please page the linux server administrator pager,[phone], with any questions or concerns regarding this patient.?? Martinez Rock M.D., M.P.H. ER/WAITRESS BAR Amanda Sanchez, R.R.T., C.R.T., L.R.T. - 10/07/2021 6:01 AM CST RT discussed with nursing staff and they have been informed about the nocturnal home oxygen study. They know that once the patient has fallen asleep to notify the monitoring lab ([id number]) and to place the patient on room [...] the nocturnal oxygen study. Electronically signed by: Amanda Sanchez R.R.T., C.R.T., L.R.T. 10/07/21 6:01 AM WAITER/WAITRESS BAR ER/WAITRESS BAR Demar Vergara P.T., Jimbo, A.TYiC. - 10/06/2021 12:32 PM CST Physical Therapy Inpatient Treatment Note SUBJECTIVE Patient's Name: Nelda Santiago Librado Referring/Attending: Jessy Pineda M.D. Medical Diagnosis: Malignant [...] was wearing a mask: yes Outcome Measures AM-PAC Inpatient Short Form: AM-[facility] Basic Mobility (V.2) How much help from [...] 3-5 steps with a railing?: A Little AM-PAC Basic Mobility (V.2) Raw Score: 21 AM-PAC Basic Mobility (V.2) Standardized Score: 45.55 Interpretation: Clinicians answer the AM-[facility] Inpatient Short Form based on observed patient [...] activity, Neuromuscular re-education, Gait training, Self-care/home management SOILS TECHNICIAN Visit Trackin Billing: Time Spent with Patient Gait Training (min): 15 min Therapeutic Activity (min): 25 min Total Timed Units (min): 40 min Total Treatment Time (min): 40 min Demar Vergara P.T., Melyssa.P.T., A.T.C. ER/WAITRESS BAR Dorothy Rosales D.O., M.S. - 10/06/2021 3:13 AM CST SUBJECTIVE MsYi Pavon is a 70 y.o. who is [...] Max:37.2 ??C Weight change: I/O 10/04 0710/05 0700 10/05 0701 10/06 0700 P.O. 1290 880 Total Intake(mL/kg) 1290 (12.2) [...] RYiNYi Added automatically from request for surgery [id number] Anxiety Generalized Disorder Asthma Mild Persistent (HCC) [...] normogram??with plan to transition to DOAC (Eliquis)??for intermediate designer anticoagulation. Patient will need a 3 month [...] ?? Patient was seen by Dr. Ching, It Consultant Fellow who agrees with plan ?? Please page the linux server administrator pager,[phone], with any questions or concerns regarding this patient.?? Dorothy Rosales D.O., M.S. ER/WAITRESS BAR Maira Arredondo P.T.A. - 10/05/2021 3:35 PM CST Physical Therapy [...] session: surgicalmask and eye protection Outcome Measures AM-PAC Inpatient Short Form: AM-PAC Basic Mobility (V.2) How much help from [...] 3-5 steps with a railing?: A Little AM-[facility] Basic Mobility (V.2) Raw Score: 18 AM-[facility] Basic Mobility (V.2) Standardized Score: 41.05 Interpretation: Clinicians answer the -[facility] Inpatient Short Form based on observed patient [...] She is willing to go to a assisted facility if needed. Rehab potential: Ms. Pavon [...] activity, Neuromuscular re-education, Gait training, Self-care/home management SOILS TECHNICIAN Visit Trackin Billing: Time Spent with Patient Gait Training (min): 21 min Therapeutic Activity (min): 13 min Total Timed Units (min): 34 min Total Treatment Time (min): 34 min Maira Arredondo P.TGermain ER/WAITRESS BAR Dorothy Rosales D.O., M.S. - 10/05/2021 9:58 [...] ??C Weight change: I/O 10/03 0710/04 0710/04 0710/06 07 P.O. 1440 1290 400 Maintenance IV Continuous [...] RYiNYi Added automatically from request for surgery [id number] Anxiety Generalized Disorder Asthma Mild Persistent (HCC) [...] plan to transition to DOAC (Eliquis) for intermediate designer anticoagulation. Patient will need a 3 month [...] Plan of care discussed with Dr. Ching, It Consultant Fellow who agrees with plan Please page the linux server administrator [phone], with any questions or concerns regarding this patient. Dorothy Rosales D.O., M.S. Krishan [place], PharmYiD., R.Ph. - 10/04/2021 10:24 AM CST Pharmacist [...] (Eliquis vs Xarelto) per vasc med Krishan Barrientos PharmIgor., R.Ph. Virginia Jerez, R.R.T., L.R.T. - 10/04/2021 10:01 AM CST 10/04/21 1000 Home Oxygen Assessment Rest/Awake Room Air SpO2 86 Percent Rest/Awake with Oxygen SpO2 94 (1.5L) Exercise/Activity Room Air SpO2 86 Percent Exercise/Activity with Oxygen SpO2 92 Percent (1.5L) Home oxygen assessment done. Oxygen prescription sent to service. ER/WAITRESS BAR Martinez Rock M.D., M.P.H. - 10/04/2021 5:46 AM CST [...] Max:37 ??C Weight change: I/O 10/02 0710/03 0700 10/03 0701 10/04 0700 P.O. 400 1440 Maintenance IV 136.7 Continuous [...] RYiNYi Added automatically from request for surgery [id number] Anxiety Generalized Disorder Asthma Mild Persistent (HCC) [...] with planto transition to DOAC (Eliquis) for [facility] antico[place]. Heparin level now therapeutic - TTE [...] PGY-2 Resident Patient seen with Dr. Pineda, CURTAINS AND DRAPERIES SALESPERSON ONC Machine Fitter, who agrees with the above plan of care. Please page the [facility] Service pager, [phone], with any questions or concerns regarding this patient. ER/WAITRESS BAR Krishan Barrientos, Lisa.D., R.Ph. - 10/03/2021 9:50 AM CST Pharmacist [...] given potential bleed risk per vasc med casandrabscynthia. Anti-Xa per RN protocol with baseline APTT 30 and first Anti-Xa to goal [0.2 - 0.5] 0.24, next check at noon today, if to goal switch to Q24H checks. B/L Lower extremity US negative for DVT, Await vasc med formal consult recs Changes to medications anticipated at discharge: TBD, Vas recs Krishan Barrientos, Pharm.DYi, R.Ph. ER/WAITRESS BAR Martinez Rock M.D., M.P.H. - 10/03/2021 5:59 AM CST SUBJECTIVE 70 y.o. who is currently 2 Days Post-Op. Events over the past 24 hours: - Pulmonology consulted (kirby phone call, formal consult not completed yesterday) [...] Signed 09/05/2021 11:16 AM by Bailee Rocha, R.N. Added automatically from request for surgery [id number] Anxiety Generalized Disorder Asthma Mild Persistent (HCC) [...] Vascular Medicine consult today, appreciate recommendations for [facility] anticoagulation management # Obstructive Sleep Apnea - [...] PGY-2 Resident Patient seen with Dr. Pineda, CURTAINS AND DRAPERIES SALESPERSON ONC Machine Fitter, who agrees with the above plan of care. Please page the [facility] pager, [phone], with any questions or concerns regarding this patient. Dale May M.D. - 10/02/2021 10:22 PM CST Was [...] in clinical status. Dr. Martín Ridley, on-call It Consultant Fellow, is aware and is in agreement with the above plan of care. Nimesh Welsh M.D. ER/WAITRESS BAR Eh Isaac - 10/02/2021 1:13 PM CST Encounter: Spiritual Care Support Situation: Mrs. Pavon had an hysterectomy yesterday. She was told that the cancer had spread in someother areas but chemo or radiation would take care of the rest. Family: Heath was present. Mrs. Pavon is well surrounded by friends and family for support. Anitha Tradition: Quaker- She mentioned having so much peace going [...] or requested. Chaplains can be contacted bypaging [phone] (Church). Krishan [place], Pharm.D., R.Ph. - 10/02/2021 8:19 AM CST Pharmacist [...] to medications anticipated at discharge: TBD Krishan Barrientos, PharmYiDYi, R.Ph. ER/WAITRESS BAR Martinez Rock M.D., M.P.H. - 10/02/2021 5:17 [...] ??C, Max:37.1 ??C Weight change: I/O 09/30 0701 10/01 0700 10/01 0710/02 07 Colloid Bolus 250 Maintenance IV 3802 Intermittent [...] Signed 09/05/2021 11:16 AM by Bailee Rocha, RYiN. Added automatically from request for surgery [id number] Anxiety Generalized Disorder Asthma Mild Persistent (HCC) [...] PGY-2 Resident Patient seen with Dr. Pineda, CURTAINS AND DRAPERIES SALESPERSON ONC Machine Fitter, who agrees with the above plan of care. Please page the [facility] pager, [phone], with any questions or concerns regarding this patient. ER/WAITRESS BAR Dale Welsh M.D. - 10/01/2021 10:39 PM [...] trial until tomorrow morning. Nimesh Welsh M.D. ER/WAITRESS BAR Alina Fernandez R.R.T., L.R.T. - 10/01/2021 9:34 [...] PAP. Electronically signed by: Fadia Fernandez R.R.T., SidneyR.TYi 10/01/21 9:35 PM WAITER/WAITRESS BAR ER/WAITRESS BAR Humaira Fang Pharm.D., R.Ph. - 10/01/2021 6:42 PM CST Images [...] List Status: Pharmacy/RN Complete Set By: Humaira Fang Pharm.D., R.Ph. at 10/01/2021 6:42 PM Taking? Last [...] to medications anticipated at discharge: TBD Shamika Fang, Pharm.D., R.Ph. ER/WAITRESS BAR documented in this encounter Consult Notes Devin Huber M.S.N., R.N. - 10/07/2021 12:01 PM CSTAssociated Order(s): IP CONSULT TO CARE MANAGEMENT; IP CONSULT TO CARE MANAGEMENT Discharge Planning Assessment SUBJECTIVE Referral Data Referral Source: Provider/Service Referral Name: [facility] Planning-Home oxygen Referral Reason: DME, Discharge Planning Discharge Planning: Early screen discharge Who was present during the interview?: Patient Community Recreation Programmer Services Used: No Patient Information Primary Caregiver: Self Accompanied by/Relationship: None Buddhism/Cultural Factors: None Primary Nurse Name/Number: NELLA Dietitian Name/Number: NELLA Diet/Texture: By mouth Legal Information Legal Decision Maker: Self Advance Directives Status: Not Activated Involuntary Hold: NA Legal Status (ARZ Excluded): Voluntary Caregiver Information Caregiver Name: Jose Antonio Caregiver Relationship: Caregiver (Mobile) Caregiver Address: [address] [place] [id number] Services Requested Physical Therapy Frequency: NA Occupational [...] Supports Home Environment: House Care Facility Name: [facility] Anticipated Modifications to the Patient's Home: Handrails, Grab Bars Anticipated Needs/Assistive Devices ADL Anticipated Needs: Mobility, Transportation Use (drive car, use taxi/bus) Equipment Anticipated Needs: None Transportation Needs: Independent to drive, Support from family Finance/Insurance Primary insurance: MEDICARE A AND B Secondary insurance: [employer] Does the Patient have any Financial Concerns?: [...] arranged?: No ASSESSMENT / PLAN Assessment: The gypsum roofer met with Nelda Jack Pavon to discuss her current hospitalization and home going needs. The patient was unaccompanied. The patient was a reliable historian. The role of gypsum roofer was reviewed. The patient reviewed her prior level of care and support system. The patient receives support from her . The patient described her living environment as a multiple level home with stairs to enter with rails. Housekeeping, grocery shopping, meal prep, and other household responsibilities have previously been completed by patient. gypsum roofer discussed the patient's potential needs at dismissal [...] type necklaces. I suggested buying a few Meludia dots. These can be usedto make phone [...] chart and meeting with the patient, the gypsum roofer deemed the LACE+/readmission questions were not necessary. [...] dismissal will be provided by family--Heath. 3. gypsum roofer recommended nothing at this time. 4. gypsum roofer provided information regarding the dismissal process and the Senior Linkage Line ([place] Board on Aging) handout. 5. gypsum roofer placed or requested the following hospital-based consult orders and/or referrals:None. 6. gypsum roofer will continue to assess for homegoing needs with the interdisciplinary team. 7. gypsum roofer encouraged the patient to reach out with any questions/concerns. Care Management will continue to follow. Home oxygen will be provided by: Durable Medical Equipment - Admitted Since 10/01/2021 Service Provider Selected Services Address Phone Fax Patient Preferred for; to (do) Centers Durable Medical Equipment [address] , [facility] [address] [phone] -- Contact: Intake Portable tanks for transport [...] follow. Signed by: Marilyn Quiñones, R.N. 10/07/2021 ER/WAITRESS BAR Amanda Centeno P.T., D.P.T. - 10/04/2021 10:18 AM CST Physical Therapy Inpatient Evaluation/Treatment SUBJECTIVE Patient's Name: Nelda ValenzuelaYi Librado Referring/Attending Provider: Jessy Pineda M.D. Medical Diagnosis: [...] - OOPHORECTOMY; Surgeon: Brianna Pineda M.D.; Location: [facility] OR ??? HYSTEROSCOPY 07/11/2021 ??? 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 Patient's also works. Patient Comments: 3/ pain in her abdomen which worsens with [...] mask during therapy session: yes Outcome Measures [facility] Inpatient Short Form: [facility] Basic Mobility (V.2) How much help from [...] 3-5 steps with a railing?: A Lot -[facility] Basic Mobility (V.2) Raw Score: 17 -[facility] Basic Mobility (V.2) Standardized Score: 39.67 Interpretation: Clinicians answer the AM-PAC Inpatient Short Form based on observed patient [...] (min): 32 min Amanda Centeno P.T., D.P.T. ER/WAITRESS BAR Yang Salinas M.D., Ph.D. - 10/03/2021 10:02 AM CSTAssociated [...] anticoagulant needsto be stopped 24 hours before hhk-tfsu-zcvqbvvz risk procedure or 48 hours before high-bleeding riskprocedure. It is obviously the decision of the doctor who is doing this procedure if this is a high-risk or gzj-lgqw-zdqsrxpx risk procedure. Neither Xarelto nor Eliquis should [...] anticoagulation remain unchanged. Yang Salinas M.D., Ph.D. ER/WAITRESS BAR documented in this encounter Nursing Notes Quyen [...] integrity is maintained or improved Outcome: Completed ER/WAITRESS BAR Marcie Pearson R.N. - 10/03/2021 9:17 PM [...] passing gas, and tolerating a general diet. ER/WAITRESS BAR Hayley Koenig M.D., M.S. - 10/03/2021 5:57 PM CST Contacted vascular medicine team with results of TTE performed this afternoon. I discussed the patient's care with Dr. Allen (Vascular Medicine Security Agent Machine Fitter). The TTE findings are consistent with heart [...] again for re-evaluation Hayley Koenig M.D., M.S. ER/WAITRESS BAR documented in this encounter OR Notes Op [...] and draped in synchronous position in yellow fin stirrups. After sterile prep and drape, the cervix [...] inserted. The remaining 3 robotic ports and fast food sales assistant port were placed under direct vision [...] recovery in stable condition. Jessy Pineda M.D. ER/WAITRESS BAR Brief Op Note - Martinez Rock M.D., M.P.H. - 10/01/2021 8:39 AM WAITER/WAITRESS BAR Pre-op Diagnosis Malignant Neoplasm Of Uterus Endometrial [...] crystallloid, 250cc colloid Martinez Rock M.D., M.P.H. ER/WAITRESS BAR documented in this encounter Miscellaneous Notes Result Encounter Note - Jessy Pineda M.D. - 10/10/2021 4:51 PM WAITER/WAITRESS BAR I have reviewed the final pathology report and the identified diagnosis is consistent with the patient's clinical presentation. ER/WAITRESS BAR Documentation Clarification - Martinez Rock M.D., M.P.H. [...] Pulmonary Embolism Without Acute Cor Pulmonale - Epic MAR: Heparin gtt - 10/02-10/05, Eliquis 10mg PO bid - beginning 10/05 Please contact me if you have questions. Thank you, ZOHAIB Paul CCS, СЕРГЕЙ Clinical Documentation Cook'S Assistant Query created by: ZOHAIB Paul CCS, СЕРГЕЙ 10/09/2021 11:51 AM WAITER/WAITRESS BAR </LCI> ER/WAITRESS BAR Documentation Clarification - Martinez Rock M.D., M.P.H. [...] you, ZOHAIB Paul CCS, CCDS Clinical Documentation Cook'S Assistant Query created by: ZOHAIB Paul CCS, CCDS 10/09/2021 12:17 PM WAITER/WAITRESS BAR </LCI> ER/WAITRESS BAR Result Encounter Note - Jessy Pineda M.D. - 10/03/2021 2:52 PM WAITER/WAITRESS BAR I have reviewed the final pathology report and the identified diagnosis is consistent with the patient's clinical presentation. ER/WAITRESS BAR Hospital Course - Martinez Rock M.D., M.P.H. - 10/01/2021 4:34 PM WAITER/WAITRESS BAR DISCHARGE SUMMARY Admission Date: 10/01/2021 Discharge Date: [...] Results (from the past 168 hour(s)) Cytology Non-CURTAINS AND DRAPERIES SALESPERSON Status: Abnormal Result Value (A) Report electronically [...] Source Comment Collection Info Order Time CYTOLOGY NON-CURTAINS AND DRAPERIES SALESPERSON Peritoneal Fluid Collected By: Jessy Pineda M.D. [...] and to guide management therapy moving forward. ER/WAITRESS BAR documented in this encounter Plan of Treatment Upcoming Encounters Date Type Specialty Care Team Description 05/02/2022 Appointment Radiation Oncology Dot Lopez M.D. [address] [place] [phone] 05/05/2022 Appointment Radiation Oncology Judy Mccall M.D. [address] [place] [phone] 05/06/2022 Appointment Radiation Oncology Judy Mccall M.D. [address] [place] [phone] 05/06/2022 Appointment Radiation Oncology Judy Mccall M.D. [address] [place] [phone] 05/07/2022 Appointment Radiation Oncology Judy Mccall M.D. [address] [place] [phone] 05/08/2022 Appointment Radiation Oncology Judy Mccall M.D. [address] [place] [phone] 05/22/2022 Clinical Communication Admitting/Central Scheduling 05/26/2022 Appointment Radiology Merlyn Rose APRN, C.NAye., M.S.N. [address] [place] [phone] 05/27/2022 Office Visit Oncology Merlyn Rose APRN, C.NLeopoldo, M.S.N. [address] [place] [phone] Scheduled Referrals Name Type Priority Associated Diagnoses Order S chedule Oncology - Medical, Outpatient Routine Malignant Neoplasm Ex pected: CURTAINS AND DRAPERIES SALESPERSON consult (clinic) Referral Of Uterus (HCC) 09/2021 (Approximate), Expires: 01/02/2023 Radiation Oncology - Outpatient Routine Malignant Neoplasm E xpected: It Consultant consult (clinic) Referral Of Uterus (HCC) 09/2021 [...] STUDY Routine 10/06/2021 9:28 - RT PM WAITER/WAITRESS BAR REMOTE OXIMETRY Routine 10/06/2021 8:00 MONITORING CONT. AM WAITER/WAITRESS BAR REMOTE OXIMETRY Routine 10/05/2021 8:00 MONITORING CONT. PM WAITER/WAITRESS BAR HEPARIN LEVEL ANTI-XA Timed 10/05/2021 8:28 Res ults for ASSAY, P AM WAITER/WAITRESS BAR this procedure are in the results section. REMOTE OXIMETRY Routine 10/05/2021 8:00 MONITORING CONT. AM WAITER/WAITRESS BAR CBC WITHOUT Routine 10/05/2021 Results for DIFFERENTIAL, B 12:55 AM WAITER/WAITRESS BAR this procedu re are in the results section. HEPARIN LEVEL ANTI-XA Timed 10/05/2021 Result s for ASSAY, P 12:34 AM WAITER/WAITRESS BAR this procedure are in the results section. REMOTE OXIMETRY Routine 10/04/2021 8:00 MONITORING CONT. PM WAITER/WAITRESS BAR REMOTE OXIMETRY Routine 10/04/2021 8:01 MONITORING CONT. AM WAITER/WAITRESS BAR HEPARIN LEVEL ANTI-XA Timed 10/04/2021 7:07 Res ults for ASSAY, P AM WAITER/WAITRESS BAR this procedure are in the results section. HEPARIN LEVEL ANTI-XA Timed 10/04/2021 Result s for ASSAY, P 12:52 AM WAITER/WAITRESS BAR this procedure are in the results section. CBC WITHOUT Routine 10/04/2021 Results for DIFFERENTIAL, B 12:52 AM WAITER/WAITRESS BAR this procedu re are in the results section. REMOTE OXIMETRY Routine 10/03/2021 8:00 MONITORING CONT. PM WAITER/WAITRESS BAR HEPARIN LEVEL ANTI-XA Timed 10/03/2021 5:57 Res ults for ASSAY, P PM WAITER/WAITRESS BAR this procedure are in the results section. (TTE) 2D ECHO DOPPLER Routine 10/03/2021 3:53 Res ults for COLOR PM WAITER/WAITRESS BAR this procedure are in the results section. HEPARIN LEVEL ANTI-XA Timed 10/03/2021 Result s for ASSAY, P 12:18 PM WAITER/WAITRESS BAR this procedure are in the results section. US LOWER EXTREMITY RAD - Routine 10/03/2021 9:16 Resul ts for VEINS BILATERAL (most inpatients AM WAITER/WAITRESS BAR this pro cedure and all are in the outpatients) results section. REMOTE OXIMETRY Routine 10/03/2021 8:01 MONITORING CONT. AM WAITER/WAITRESS BAR HEPARIN LEVEL ANTI-XA Timed 10/03/2021 5:22 Res ults for ASSAY, P AM WAITER/WAITRESS BAR this procedure are in the results section. CBC WITHOUT Routine 10/03/2021 5:22 Results for DIFFERENTIAL, B AM WAITER/WAITRESS BAR this procedu re are in the results section. ACTIVATED PARTIAL STAT 10/02/2021 Results fo r THROMBOPLASTIN TIME 10:23 PM WAITER/WAITRESS BAR this pro cedure (APTT), P are in the results section. CT CHEST ANGIOGRAM AND RAD - Semiurgent 10/02/2021 9:51 Results for PULMONARY ARTERIES (Fast; most ED PM WAITER/WAITRESS BAR this pr ocedure WITH IV CONTRAST patients; some are in th e inpatients) results section. REMOTE OXIMETRY Routine 10/02/2021 8:01 MONITORING CONT. PM WAITER/WAITRESS BAR DX CHEST PORTABLE 1 RAD - Semiurgent 10/02/2021 7:23 R esults for VIEW (Fast; most ED PM WAITER/WAITRESS BAR this procedur e patients; some are in the inpatients) results section. REMOTE OXIMETRY Routine 10/02/2021 2:49 MONITORING CONT. PM WAITER/WAITRESS BAR REMOTE OXIMETRY Routine 10/02/2021 2:49 MONITORING CONT. PM WAITER/WAITRESS BAR REMOTE OXIMETRY Routine 10/02/2021 2:49 MONITORING CONT. PM WAITER/WAITRESS BAR CBC WITHOUT Routine 10/02/2021 Results for DIFFERENTIAL, B 12:26 AM WAITER/WAITRESS BAR this procedu re are in the results section. BASIC METABOLIC PANEL, Routine 10/02/2021 Resul ts for S/P 12:26 AM WAITER/WAITRESS BAR this procedure are in the results section. DX ABDOMEN 1 VIEW RAD - Routine 10/01/2021 4:54 Result s for (most inpatients PM WAITER/WAITRESS BAR this proced ure and all are in the outpatients) results section. SURGICAL PATHOLOGY, Routine 10/01/2021 Malignant Results for FROZEN LAB 10:59 AM WAITER/WAITRESS BAR Neoplasm Of this procedure Uterus are in the Endometrial (HCC) results section. CYTOLOGY NON-CURTAINS AND DRAPERIES SALESPERSON Routine 10/01/2021 Malignant Results for 10:16 AM WAITER/WAITRESS BAR Neoplasm Of this procedure Uterus are in the Endometrial (HCC) results section. 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 LAB BLOOD ADD-ON Performing Organization Address City/[facility] Phon e Number [facility] - [address] APTT (Activated Partial Thromboplastin Time) (01/15/2022 [...] R.N. LAB BLOOD ADD-ON Performing Organization Address City/[facility]/ZIP Code Phon e Number [facility] - [address] (ABNORMAL) Prothrombin Time (PT) (01/15/2022 10:31 AM CDT) Patholo gist Method Time Signature Prothrombin 15.0 (H) 9.4 [...] Organization Address City/State/ZIP Code Phon e Number [facility] - [address] [place], [place] [address] [facility] [place] [address] [facility] 200 [facility] (ABNORMAL) CBC with Differential, Blood (01/15/2022 10:31 AM CDT) [facility] Method Time Signature Hemoglobin 8.4 (L) 11.6 [...] Organization Address City/State/ZIP Code Phon e Number [facility] - [address] [place] [address] [facility] [place] [address] [facility] 200 [facility] CBC with Differential, Blood (10/15/2021 8:20 [...] Organization Address City/State/ZIP Code Phon e Number [facility] - [address] [place] [address] [facility] [place] [address] [facility] 200 [facility] (ABNORMAL) Comprehensive Metabolic Panel (10/15/2021 8:20 AM CDT) athologist Signature Potassium, S 4.2 [...] 10/15/2021 DTL Black/ mL/min/BSA 9:24 AM CDT Honduran Comment: ----ADDITIONAL INFORMATION---- Estimated GFR calculated using [...] Organization Address City/State/ZIP Code Phon e Number [facility] - [address] [place], [place] [address] [facility] [place] [address] [facility] [address] Heparin Anti-Xa Assay (10/05/2021 8:28 AM WAITER/WAITRESS BAR) P athologist Signature Heparin 0.39 IU/mL 10/05/2021 DTL Anti-Xa, P 9:11 AM WAITER/WAITRESS BAR Comment: UFH therapeutic range: ?? 0.30-0.70 IU/mL [...] (Blood, 10/05/2021 8:28 AM 10/06/19 8:56 Venous) WAITER/WAITRESS BAR AM WAITER/WAITRESS BAR Jessy Pineda M.D. LAB BLOOD NON ADD-ON Performing Organization Address City/State/[facility] Code Phon e Number [facility] - [address] [place] [phone] [facility] [place] [address] [facility] 200 [facility] CBC without Differential (10/05/2021 12:55 AM WAITER/WAITRESS BAR) P athologist Signature Hemoglobin 11.6 11.6 - 10/05/2021 DHPM 15.0 g/dL 1:57 AM WAITER/WAITRESS BAR Hematocrit 37.8 35.5 - 10/05/2021 DHPM 44.9 % 1:57 AM WAITER/WAITRESS BAR Erythrocytes 4.11 3.92 - 10/05/2021 DHPM 5.13 1:57 AM WAITER/WAITRESS BAR x10(12)/L MCV 92.0 78.2 - 10/05/2021 DHPM 97.9 fL 1:57 AM WAITER/WAITRESS BAR RBC Distrib Width 14.4 12.2 - 10/05/2021 DHPM 16.1 % 1:57 AM WAITER/WAITRESS BAR Platelet Count 257 157 - 371 10/05/2021 DHPM x10(9)/L 1:57 AM WAITER/WAITRESS BAR Leukocytes 8.6 3.4 - 9.6 10/05/2021 DHPM x10(9)/L 1:57 AM WAITER/WAITRESS BAR Specimen Anatomical Collection Method Collection Time Receive d Time (Source) Location / / Volume Laterality Blood (Blood, 10/05/2021 12:55 10/05/2021 1:08 Venous) AM WAITER/WAITRESS BAR AM WAITER/WAITRESS BAR Dale Welsh M.D. LAB BLOOD ADD-ON Performing Organization Address City/[facility] Phon e Number [facility] - [address] [place], [place] [address] [place] [address] [facility] 200 [facility] Heparin Anti-Xa Assay (10/05/2021 12:34 AM WAITER/WAITRESS BAR) P athologist Signature Heparin 0.17 IU/mL 10/05/2021 DTL Anti-Xa, P 1:54 AM WAITER/WAITRESS BAR Comment: UFH therapeutic range: ?? 0.30-0.70 IU/mL [...] (Blood, 10/05/2021 12:34 10/05/2021 1:08 Venous) AM WAITER/WAITRESS BAR AM WAITER/WAITRESS BAR Jessy Pineda M.D. LAB BLOOD NON ADD-ON Performing Organization Address City/[facility] Phon e Number [facility] - [address] [place], [place] [address] [place] [address] [facility] 200 [facility] Heparin Anti-Xa Assay (10/04/2021 7:07 AM WAITER/WAITRESS BAR) P athologist Signature Heparin 0.28 IU/mL 10/04/2021 DTL Anti-Xa, P 7:48 AM WAITER/WAITRESS BAR Comment: UFH therapeutic range: ?? 0.30-0.70 IU/mL [...] (Blood, 10/04/2021 7:07 AM 10/05/19 7:26 Venous) WAITER/WAITRESS BAR AM WAITER/WAITRESS BAR Jessy Pineda M.D. LAB BLOOD NON ADD-ON Performing Organization Address City/[facility] Phon e Number [facility] - [address] [place] [address] Heparin Anti-Xa Assay (10/04/2021 12:52 AM WAITER/WAITRESS BAR) P athologist Signature Heparin 0.33 IU/mL 10/04/2021 [facility] Anti-Xa, P 1:17 AM WAITER/WAITRESS BAR Comment: UFH therapeutic range: ?? 0.30-0.70 IU/mL [...] (Blood, 10/04/2021 12:52 10/04/2021 1:02 Venous) AM WAITER/WAITRESS BAR AM WAITER/WAITRESS BAR Jessy Pineda M.D. LAB BLOOD NON ADD-ON Performing Organization Address City/[facility] Phon e Number [facility] - [id number] [place] [address] (ABNORMAL) CBC without Differential (10/04/2021 12:52 AM WAITER/WAITRESS BAR) Patholo gist Method Time Signature Hemoglobin 10.5 (L) 11.6 - 10/04/2021 DTL 15.0 g/dL 1:08 AM WAITER/WAITRESS BAR Hematocrit 33.9 (L) 35.5 - 10/04/2021 DTL 44.9 % 1:08 AM WAITER/WAITRESS BAR Erythrocytes 3.74 (L) 3.92 - 10/04/2021 DTL 5.13 1:08 AM WAITER/WAITRESS BAR x10(12)/L MCV 90.6 78.2 - 10/04/2021 DTL 97.9 fL 1:08 AM WAITER/WAITRESS BAR RBC Distrib Width 14.4 12.2 - 10/04/2021 DTL 16.1 % 1:08 AM WAITER/WAITRESS BAR Platelet Count 186 157 - 371 10/04/2021 DTL x10(9)/L 1:08 AM WAITER/WAITRESS BAR Leukocytes 8.3 3.4 - 9.6 10/04/2021 DTL x10(9)/L 1:08 AM WAITER/WAITRESS BAR Specimen Anatomical Collection Method Collection Time Receive d Time (Source) Location / / Volume Laterality Blood (Blood, 10/04/2021 12:52 10/04/2021 1:02 Venous) AM WAITER/WAITRESS BAR AM WAITER/WAITRESS BAR Dale Welsh M.D. LAB BLOOD ADD-ON Performing Organization Address City/State/ZIP Code Phon e Number [facility] - [address] [place], [place] [address] [facility] [place] [address] [facility] [address] [facility] Heparin Anti-Xa Assay (10/03/2021 5:57 PM WAITER/WAITRESS BAR) P athologist Signature Heparin 0.15 IU/mL 10/03/2021 DTL Anti-Xa, P 6:24 PM WAITER/WAITRESS BAR Comment: UFH therapeutic range: ?? 0.30-0.70 IU/mL [...] (Blood, 10/03/2021 5:57 PM 10/04/19 6:08 Venous) WAITER/WAITRESS BAR PM WAITER/WAITRESS BAR Martinez Rock M.D., M.P.H. LAB BLOOD NON ADD-ON Performing Organization Address City/State/ZIP Code Phon e Number [facility] - [address] [place], [place] [address] [facility] [place] [address] [facility] [address] (TTE) 2D ECHO DOPPLER COLOR (10/03/2021 3:53 PM WAITER/WAITRESS BAR) [facility] Method Time Signature Ejection Fraction 65 MC [...] / / Volume Laterality 10/03/2021 2:05 PM WAITER/WAITRESS BAR Impressions 10/03/2021 11:22 PM WAITER/WAITRESS BAR Echo performed at the patient's bedside at [facility]. There are no previous [facility] echocardiograms available for comparison. Anemia, thyrotoxicosis, or [...] Order-L evel Documents. Narrative 10/03/2021 11:22 PM WAITER/WAITRESS BAR For the complete report, see the Order-Level [...] original. For the complete report, see the Order-L evel Documents. Final Impressions 1. Mild-moderately enlarged right [...] Echo performed at the patient's bedside at [facility]. There are no previous [facility] echocardiograms available for comparison. Anemia, thyrotoxicosis, or [...] PROCEDURES Heparin Anti-Xa Assay (10/03/2021 12:18 PM WAITER/WAITRESS BAR) P athologist Signature Heparin 0.20 IU/mL 10/03/2021 DT Anti-Xa, P 1:01 PM WAITER/WAITRESS BAR Comment: UFH therapeutic range: ?? 0.30-0.70 IU/mL [...] Blood (Blood, 10/03/2021 12:18 10/03/2021 Venous) PM WAITER/WAITRESS BAR 12:26 PM WAITER/WAITRESS BAR Dale Welsh M.D. LAB BLOOD NON ADD-ON Performing Organization Address City/State/ZIP Code Phon e Number [facility] - [address] [place], [place] [address] [place] [address] [facility] [address] SW US Lower Extremity Veins Bilateral (10/03/2021 9:16 AM WAITER/WAITRESS BAR) Anatomical Region Laterality Modality Lower Extremity, Ultrasound RST LOS, Ultrasound ARZ LOS, Balaji ateral Ultrasound Ultrasound FLA LOS Specimen (Source) Anatomical Collection Method Collection Time Re ceived Time Location / / Volume Laterality 10/03/2021 9:28 AM WAITER/WAITRESS BAR Impressions 10/03/2021 9:30 AM WAITER/WAITRESS BAR Negative for DVT Narrative 10/03/2021 9:30 AM WAITER/WAITRESS BAR EXAM: US LOWER EXTREMITY VEINS BILATERAL Exam [...] man agement can be found on the ONTRAPORT site. Link [email or web address] Procedure Note Saeid Moe M.D. - 10/03/2021Formatti [...] man agement can be found on the ONTRAPORT site. Link [email or web address]/clinical-[email or web address]/[email or web address] IMPRESSION: Negative for DVT Dale Welsh M.D. IMG US PROCEDURES Heparin Anti-Xa Assay (10/03/2021 5:22 AM WAITER/WAITRESS BAR) P athologist Signature Heparin 0.24 IU/mL 10/03/2021 DT Anti-Xa, P 5:57 AM WAITER/WAITRESS BAR Comment: UFH therapeutic range: ?? 0.30-0.70 IU/mL [...] (Blood, 10/03/2021 5:22 AM 10/04/19 5:33 Venous) WAITER/WAITRESS BAR AM WAITER/WAITRESS BAR Dale Welsh M.D. LAB BLOOD NON ADD-ON Performing Organization Address City/State/ZIP Code Phon e Number [facility] - [address] [place], [place] [address] [facility] [place] [address] [facility] [address] (ABNORMAL) CBC without Differential (10/03/2021 5:22 AM WAITER/WAITRESS BAR) Patholo gist Method Time Signature Hemoglobin 10.7 (L) 11.6 - 10/03/2021 DTL 15.0 g/dL 5:40 AM WAITER/WAITRESS BAR Hematocrit 34.3 (L) 35.5 - 10/03/2021 DTL 44.9 % 5:40 AM WAITER/WAITRESS BAR Erythrocytes 3.78 (L) 3.92 - 10/03/2021 DTL 5.13 5:40 AM WAITER/WAITRESS BAR x10(12)/L MCV 90.7 78.2 - 10/03/2021 DTL 97.9 fL 5:40 AM WAITER/WAITRESS BAR RBC Distrib Width 14.6 12.2 - 10/03/2021 DTL 16.1 % 5:40 AM WAITER/WAITRESS BAR Platelet Count 184 157 - 371 10/03/2021 DTL x10(9)/L 5:40 AM WAITER/WAITRESS BAR Leukocytes 10.0 (H) 3.4 - 9.6 10/03/2021 DTL x10(9)/L 5:40 AM WAITER/WAITRESS BAR Specimen Anatomical Collection Method Collection Time Receive d Time (Source) Location / / Volume Laterality Blood (Blood, 10/03/2021 5:22 AM 10/04/19 5:33 Venous) WAITER/WAITRESS BAR AM WAITER/WAITRESS BAR Dale Welsh M.D. LAB BLOOD ADD-ON Performing Organization Address City/[facility] Phon e Number [facility] - [address] [place] [address] APTT (Activated Partial Thromboplastin Time) (10/02/2021 10:23 PM WAITER/WAITRESS BAR) P athologist Signature Activated 30 25 - 37 sec 10/02/2021 METH Partial 10:38 PM WAITER/WAITRESS BAR Thrombopl Time, P Specimen Anatomical Collection Method Collection Time Receive d Time (Source) Location / / Volume Laterality Blood (Blood, 10/02/2021 10:23 10/02/2021 Venous) PM WAITER/WAITRESS BAR 10:27 PM WAITER/WAITRESS BAR Dale Welsh M.D. LAB BLOOD ADD-ON Performing Organization Address City/[facility] Phon e Number [facility] - [address] METH [address] Chest Angiogram and Pulmonary Arteries with IV Contrast (10/02/2021 9:51 PM WAITER/WAITRESS BAR) Anatomical Region Laterality Modality Chest, Cardiovascular RST LOS, Thoracic N/A Computed Tomography, Computed ARZ LOS, Thoracic FLA LOS Tomography Specimen (Source) Anatomical Location Collection Method / Collectio n Time Received Time / Laterality Volume Impressions 10/02/2021 10:03 PM WAITER/WAITRESS BAR 1. Positive for right-sided segmental ac karma pulmonary emboli. 2. Atelectasis in the lung bases. 3. Cardiomegaly with small pericardial e ffusion. Findings discussed with Dale Welsh M.D. ([id number]) on 10/02/2021 at 9:51 PM. Narrative 10/02/2021 10:03 PM WAITER/WAITRESS BAR EXAM: ??CT CHEST ANGIOGRAM AND PULMONARY ARTERIES [...] Chest Portable 1 View (10/02/2021 7:23 PM WAITER/WAITRESS BAR) Anatomical Region Laterality Modality Chest, Thoracic RST LOS, Thoracic ARZ LOS, Thoracic N/A Digital Radiography FLA LOS Specimen (Source) Anatomical Collection Method Collection Time Re ceived Time Location / / Volume Laterality 10/02/2021 7:27 PM WAITER/WAITRESS BAR Impressions 10/02/2021 7:33 PM WAITER/WAITRESS BAR Low lung volumes which accentuate the cardiomediastinal silhouette. No pneumothorax. Elevation of the right hemidiaphragm. Ti ny left pleural effusion. Bibasilar atelectasis. Curvilinear lucency along the right hemidiaphragm ma y represent free air, which is expected in the immediate postoperative setting. Narrative 10/02/2021 7:33 PM WAITER/WAITRESS BAR EXAM: ??DX CHEST PORTABLE 1 VIEW Procedure [...] (ABNORMAL) CBC without Differential (10/02/2021 12:26 AM WAITER/WAITRESS BAR) [facility] gist Method Time Signature Hemoglobin 11.7 11.6 - 10/02/2021 DTL 15.0 g/dL 1:23 AM WAITER/WAITRESS BAR Hematocrit 37.3 35.5 - 10/02/2021 DTL 44.9 % 1:23 AM WAITER/WAITRESS BAR Erythrocytes 4.17 3.92 - 10/02/2021 DTL 5.13 1:23 AM WAITER/WAITRESS BAR x10(12)/L MCV 89.4 78.2 - 10/02/2021 DTL 97.9 fL 1:23 AM WAITER/WAITRESS BAR RBC Distrib Width 14.1 12.2 - 10/02/2021 DTL 16.1 % 1:23 AM WAITER/WAITRESS BAR Platelet Count 205 157 - 371 10/02/2021 DTL x10(9)/L 1:23 AM WAITER/WAITRESS BAR Leukocytes 11.1 (H) 3.4 - 9.6 10/02/2021 DTL x10(9)/L 1:23 AM WAITER/WAITRESS BAR Specimen Anatomical Collection Method Collection Time Receive d Time (Source) Location / / Volume Laterality Blood (Blood, 10/02/2021 12:26 10/02/2021 1:17 Venous) AM WAITER/WAITRESS BAR AM WAITER/WAITRESS BAR Martinez Rock M.D., M.P.H. LAB BLOOD ADD-ON Performing Organization Address City/State/ZIP Code Phon e Number [facility] - [address] [place], [place] [address] [facility] [place] [address] [facility] [address] (ABNORMAL) Basic Metabolic Panel (10/02/2021 12:26 AM WAITER/WAITRESS BAR) P athologist Signature Potassium, S 4.2 3.6 - 5.2 10/02/2021 DTL mmol/L 1:45 AM WAITER/WAITRESS BAR Sodium, S 142 135 - 145 10/02/2021 DTL mmol/L 1:45 AM WAITER/WAITRESS BAR Chloride, S 104 98 - 107 10/02/2021 DTL mmol/L 1:45 AM WAITER/WAITRESS BAR Bicarbonate, S 27 22 - 29 10/02/2021 DTL mmol/L 1:45 AM WAITER/WAITRESS BAR Anion Gap 11 7 - 15 10/02/2021 DTL 1:45 AM WAITER/WAITRESS BAR BUN (Blood Urea 10 6 - 21 10/02/2021 DTL Nitrogen), S mg/dL 1:45 AM WAITER/WAITRESS BAR Creatinine 0.78 0.59 - 10/02/2021 DTL 1.04 mg/dL 1:45 AM WAITER/WAITRESS BAR eGFR-Non 77 >=60 10/02/2021 DTL Black/ mL/min/BSA 1:45 AM WAITER/WAITRESS BAR Honduran Comment: ----ADDITIONAL INFORMATION---- Estimated GFR calculated using the 2009 CKD_EPI creatinine equation. eGFR-Black/ 89 >=60 mL/min/BSA 2021 1:45 AM WAITER/WAITRESS BAR DTL Comment: ----ADDITIONAL INFORMATION---- Estimated GFR calculated using the 2009 CKD_EPI creatinine equation. Calcium, Total, S 8.2 (L) 8.8 - 10.2 mg/dL 10/02/2021 1:45 AM WAITER/WAITRESS BAR DTL Glucose, S 145 (H) 70 - 140 mg/dL 10/02/2021 1:45 AM WAITER/WAITRESS BAR D TL Specimen Anatomical Collection Method Collection Time Receive d Time (Source) Location / / Volume Laterality Blood (Blood, 10/02/2021 12:26 10/02/2021 1:32 Venous) AM WAITER/WAITRESS BAR AM WAITER/WAITRESS BAR Martinez Rock M.D., M.P.H. LAB BLOOD ADD-ON Performing Organization Address City/State/ZIP Code Phon e Number [facility] - [address] [place], [place] [address] [facility] [place] [address] [facility] [address] DX Abdomen 1 View (10/01/2021 4:54 PM WAITER/WAITRESS BAR) Anatomical Region Laterality Modality Abdomen, Abdominal RST LOS, Abdominal ARZ LOS, N/A Computed Radiography Abdominal FLA LOS Specimen (Source) Anatomical Collection Method Collection Time Re ceived Time Location / / Volume Laterality 10/01/2021 4:55 PM WAITER/WAITRESS BAR Impressions 10/01/2021 4:55 PM WAITER/WAITRESS BAR Negative for postoperative purposes. Narrative 10/01/2021 4:55 PM WAITER/WAITRESS BAR EXAM: ??DX ABDOMEN 1 VIEW Procedure Note Adeola, Trenton Schroeder M.D. - 10/01/2021Format ting of this note might be different from the original. EXAM: DX ABDOMEN 1 VIEW IMPRESSION: Negative for postoperative purposes. Jessy Pineda M.D. IMRaz[facility] Surgical Pathology, Frozen Lab (10/01/2021 10:59 AM WAITER/WAITRESS BAR) Component Value Ref Test Analysis Performed Pathologis t Range Method Time At Signature 10/03/2021 METH 5:24 PM WAITER/WAITRESS BAR Participated in [facility]3], 10/03/2021 METH the [facility] -Pathology 5:24 PM Interpretation Fellow WAITER/WAITRESS BAR Report Nahum NewmanS. 10/03/2021 METH electronically 5:24 PM signed by WAITER/WAITRESS BAR I verify that I have examined all relevant slides/materials for the specimen(s) and rendered or confirmed the diagnosis. Seen in consultation with: Sybil Doherty M.D. Frozen B. ??Lymph node, left external, biopsy: ??A single (1) lymph 10/03/2021 METH Intraoperative node is negative for tumor. 5:24 PM Report WAITER/WAITRESS BAR C. ??Lymph node, left para-aortic, biopsy: ??A [...] performed by: Starla Funes M.D. Signed by Nahum NewmanS. 10/01/2021 4:49 PM Gross Description A. ??Received fresh labeled sigmoid nodule is a 1.1 x 0.7 10/03/2021 METH x 5:24 PM 0.4 cm fragment of rivero-red soft tissue. ??All submitted for WAITER/WAITRESS BAR permanent sections only. ??Grossed by Blue Trejo, [facility])/EK. Al[place]ga. ??Received fresh labeled left external iliac lymph node is a 3.5 x 2 x 0.5 cm lymph node. ??Lymph node submitted for frozen and permanent sections. ??Grossed by Andres Daugherty M.D. -Pathology Resident. C. ??Received fresh labeled left para-aortic lymph node is a 5 x 1.5 x 1 cm grossly positive lymph node. ??Lymph node submitted for frozen and permanent sections. ??Grossed by Blue Hung, [facility]). D. ??Received fresh labeled uterus, bilateral fallopian [...] fallopian tube which has multiple paratubal cysts. ??Bonding Machine Setter tissue submitted for frozen and permanent sections. ??Grossed by Andres Daugherty M.D. -Pathology Resident. E. ??Received fresh labeled bladder peritoneum is a 7 x 2.8 x 0.3 cm portion of red membranous and focally nodular tissue with cautery. ??Bonding Machine Setter tissue submitted for permanent sections only. ??Grossed by Hardeep Rondon M.S., [facility]). F. ??Received fresh labeled cervix is an unoriented trachelectomy specimen with ragged superior edges and no grossly identifiable lesions. ??Bonding Machine Setter tissue submitted for permanent sections only. ??Grossed by Hardeep Rondon M.S., [facility]). G. ??Received fresh labeled omentum is a 34 x 10 x 1.5 cm portion of omentum. ??No masses are identified grossly. Bonding Machine Setter tissue submitted for permanent sections only. Grossed by Hardeep Rondon M.S., PA([facility])/EK. H. ??Received fresh labeled right pelvic lymph node is a 2 x 1.6 x 1.2 cm lymph node. ??Lymph nodes are submitted for permanent sections only. ??Grossed by Hardeep Rondon M.S., VAN([facility])/EK. Block Summary A Sigmoid nodule 10/03/2021 METH A1 Sigmoid nodule 5:24 PM WAITER/WAITRESS BAR B Left external iliac lymph node B1 [...] test was developed and its performance characteri stics 10/03/2021 METH determined by [facility] in a manner consistent with CLIA 5:24 PM requirements. This test has not been cleared or approved by WAITER/WAITRESS BAR the U.S. Food and Drug Administration. Addendum [...] with serous carcinoma. Seen in consultation with Dr. Sybil Doherty M.D. E. ??Peritoneum, bladder, excision: ??Negative for carcinoma . [...] Pelvic Nodes Examined: 2 Number of Pelvic [place] Nodes Examined: na Total Number of Para-aortic [...] Volume Laterality Tissue (Colon) 10/01/2021 10:59 AM WAITER/WAITRESS BAR Tissue (Lymph 10/01/2021 11:17 Node) AM WAITER/WAITRESS BAR Tissue (Lymph 10/01/2021 12:54 Node) PM WAITER/WAITRESS BAR Tissue (Uterus) 10/01/2021 1:26 PM WAITER/WAITRESS BAR Tissue (Bladder) 10/01/2021 1:29 PM WAITER/WAITRESS BAR Tissue (Cervix) 10/01/2021 2:09 PM WAITER/WAITRESS BAR Tissue (Omentum) 10/01/2021 2:48 PM WAITER/WAITRESS BAR Tissue (Lymph 10/01/2021 3:07 PM Node) WAITER/WAITRESS BAR Narrative This result has an attachment that is no t available. Jessy Pineda M.D. LAB SURG PATH ORDERABLES Performing Organization Address City/State/ZIP Code Phon e Number [facility] - [address] [place], [place] [address] [facility] [place] [address] [facility] [address] (ABNORMAL) Cytology Non-CURTAINS AND DRAPERIES SALESPERSON (10/01/2021 10:16 AM WAITER/WAITRESS BAR) Component Value Ref Test Analysis Performed Pathologis t Range Method Time At Signature (A) 10/03/2021 DTL 12:28 PM WAITER/WAITRESS BAR Report Eddie Arteaga M.D., Ph.D. 10/03/2021 DTL electronically 12:28 PM signed by WAITER/WAITRESS BAR I verify that I have examined all relevant slides/materials for the specimen(s) and rendered or confirmed the diagnosis. (A) Gross Received 90 cc of 10/03/2021 DTL Description clear fluid. (A) 12:28 PM WAITER/WAITRESS BAR Source A. Peritoneal, 10/03/2021 DTL Pelvic, washing (A) 12:28 PM WAITER/WAITRESS BAR Interpretation A. Peritoneal, Pelvic, washing (ThinPrep/cell block) : 10/03/2021 DTL Atypical. ??Abnormal epithelial cells, favor 12:28 PM reactive/degenerative etiology. WAITER/WAITRESS BAR Immunohistochemical studies were performed. ??Stains of Urbano-EP4, MOC31, D2-40, calretinin and Claudin-4 support the diagnosis. (A) Specimen (Source) Anatomical Collection Method Collection Time Re ceived Time Location / / Volume Laterality Fluid (Peritoneal 10/01/2021 10:16 Fluid) AM WAITER/WAITRESS BAR Narrative This result has an attachment that is no t available. Jessy Pineda M.D. 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) Decline Functional Status Multiple Subsegmental Pulmonary Embolism Without Acute Cor Pulmonale (HCC) Malignant Neoplasm Of Uterus Endometrial (HCC) documented in this encounter Admitting Diagnoses Diagnosis Malignant Neoplasm Of Uterus Endometrial (HCC) documented in this encounter Administered Medications Inactive Administered Medications - up to 3 most recent administrations Medication Order MAR Action Action Date Dose Rate Site acetaminophen tablet 1,000 mg Given 10/07/2021 2:27 PM WAITER/WAITRESS BAR 1,000 mg (TYLENOL) 1,000 mg, oral, Every 6 hours, First dose on Thu10/01/21 at 2100, not to exceed 4 grams in 24 hours. Given 10/07/2021 8:39 AM WAITER/WAITRESS BAR 1,000 mg Given 10/07/2021 2:42 AM WAITER/WAITRESS BAR 1,000 mg albuterol nebulizer solution 2.5 mg Given 10/07/2021 5:24 PM WAITER/WAITRESS BAR 2.5 mg 2.5 mg, nebulization, Every 8 hours PRN, wheezing, shortness of breath, Starting on Thu10/01/21 at 1820 Given 10/06/2021 10:33 PM WAITER/WAITRESS BAR 2.5 mg Given 10/05/2021 8:26 PM WAITER/WAITRESS BAR 2.5 mg apixaban tablet 10 mg (ELIQUIS) Given 10/07/2021 8:40 AM WAITER/WAITRESS BAR 10 mg 10 mg, oral, 2 times daily, First dose (after last modification) on Thu10/06/21 at 0900, For 10 days Given 10/06/2021 8:11 PM WAITER/WAITRESS BAR 10 mg Given 10/06/2021 9:16 AM WAITER/WAITRESS BAR 10 mg bupivacaine liposome (PF) 20 Given 10/01/2021 3:37 PM WAITER/WAITRESS BAR 120 mL Abdominal Tissue mL in sodium chloride (PF) 0.9 % 120 mL injection As needed, Starting on Thu10/01/21 at 1537, Intra-Op dextromethorphan-guaiFENesin 10-100 mg/5 mL Given 10/06/2021 9:1 7 AM WAITER/WAITRESS BAR 5 mL syrup 5 mL (ROBITUSSIN-DM) 5 mL, oral, Every 4 hours PRN, cough, Starting on Thu10/05/21 at 2052 Given 10/06/2021 1:37 AM WAITER/WAITRESS BAR 5 mL fluticasone propionate 50 mcg/actuation Given 10/07/2021 8:41 AM WAITER/WAITRESS BAR 2 sprays nasal spray 2 spray (FLONASE) 2 spray, each nostril, 2 times daily, First dose on Thu10/01/21 at 2100 Given 10/06/2021 8:12 PM WAITER/WAITRESS BAR 2 sprays Given 10/06/2021 9:17 AM WAITER/WAITRESS BAR 2 sprays indocyanine green injection (IC-GREEN) Given 10/01/2021 8:44 AM WAITER/WAITRESS BAR 5 mg Other As needed, Starting on Thu10/01/21 at 0844, Intra-Op ipratropium-albuteroL 0.5-2.5 mg/3 mL nebulizer Given 10/06/2021 2:49 PM WAITER/WAITRESS BAR 3 mL solution 3 mL (DUONEB) 3 mL, nebulization, 4 times daily PRN, wheezing, shortness of breath, Starting on Thu10/01/21 at 1820 Given 10/06/2021 12:20 AM WAITER/WAITRESS BAR 3 mL loratadine tablet 10 mg (CLARITIN) Given 10/07/2021 8:40 AM WAITER/WAITRESS BAR 10 mg 10 mg, oral, Daily, First dose on Thu10/02/21 at 0900, loratadine 10 mg oral daily was interchanged for cetirizine 10 mg oral daily Given 10/06/2021 9:16 AM WAITER/WAITRESS BAR 10 mg Given 10/05/2021 8:31 AM WAITER/WAITRESS BAR 10 mg whbhripiud-pzqfnlsdlwr-gqdjrvadrttqexj Given 10/07/2021 8:42 AM 2 sprays 0.033-0.02-0.033 % nasal spray 2 spray WAITER/WAITRESS BAR 2 spray, each nostril, 2 times daily, First dose on Thu10/06/21 at 0900, Shake very well prior to each use. Given 10/06/2021 8:12 PM WAITER/WAITRESS BAR 2 sprays Given 10/06/2021 9:17 AM WAITER/WAITRESS BAR 2 sprays montelukast tablet 10 mg (SINGULAIR) Given 10/06/2021 8:11 PM WAITER/WAITRESS BAR 10 mg 10 mg, oral, Daily at bedtime, First dose on Thu10/01/21 at 2100 Given 10/05/2021 8:26 PM WAITER/WAITRESS BAR 10 mg Given 10/04/2021 8:19 PM WAITER/WAITRESS BAR 10 mg ondansetron (PF) injection 4 mg (ZOFRAN) Given 10/02/2021 11:40 AM WAITER/WAITRESS BAR 4 mg 4 mg, intravenous, Every 6 hours PRN, nausea, vomiting, Starting on Thu10/01/21 at 1820, Reassess for nausea or vomiting after at least 10 minutes. If nausea or vomiting persists administer next ordered antiemetic medications (order for antiemetic medication administration ondansetron then droperidol then promethazine). oxyCODONE IR tablet 10 mg (ROXICODONE) Given 10/06/2021 12:18 AM WAITER/WAITRESS BAR 10 mg 10 mg, oral, Every 4 hours PRN, severe pain or score 7-10 of 10, Administer if pain is unrelieved by acetaminophen, Starting on Thu10/01/21 at 1513, For patients that received intrathecal analgesia, start 24 hours after intrathecal dose given Given 10/05/2021 3:04 PM WAITER/WAITRESS BAR 10 mg Given 10/03/2021 10:46 AM WAITER/WAITRESS BAR 10 mg oxyCODONE IR tablet 5 mg (ROXICODONE) Given 10/04/2021 9:27 PM WAITER/WAITRESS BAR 5 mg 5 mg, oral, Every 4 hours PRN, moderate pain or score 4-6 of 10, Administer if pain is unrelieved by acetaminophen., Starting on Thu10/01/21 at 1513, For patients that received intrathecal analgesia, start 24 hours after intrathecal dose given Given 10/04/2021 12:23 PM WAITER/WAITRESS BAR 5 mg Given 10/03/2021 4:18 PM WAITER/WAITRESS BAR [address] tablet 40 mg (PROTONIX) Given 10/07/2021 6:35 AM WAITER/WAITRESS BAR 40 mg 40 mg, oral, Daily before breakfast, First dose on Thu10/02/21 at 0700, pantoprazole 40 mg oral daily was interchanged for omeprazole 20 or 40 mg oral daily Swallow whole. Do NOT crush, chew, or split tablet. Given 10/06/2021 6:46 AM WAITER/WAITRESS BAR 40 mg Given 10/05/2021 6:47 AM WAITER/WAITRESS BAR 40 mg sennosides-docusate sodium 8.6-50 mg per Given 10/06/2021 8:11 P M WAITER/WAITRESS BAR 1 tablet tablet 1 tablet (SENOKOT-S) 1 tablet, oral, 2 times daily, First dose on Thu10/01/21 at 2100, Starting evening of surgery. Given 10/06/2021 9:16 AM WAITER/WAITRESS BAR 1 tablet Given 10/05/2021 8:31 AM WAITER/WAITRESS BAR 1 tablet sertraline tablet 100 mg (ZOLOFT) Given 10/07/2021 8:40 AM WAITER/WAITRESS BAR 100 mg 100 mg, oral, Every morning, First dose on Thu10/02/21 at 0900 Given 10/06/2021 9:16 AM WAITER/WAITRESS BAR 100 mg Given 10/05/2021 8:31 AM WAITER/WAITRESS BAR 100 mg sodium chloride 0.65 % nasal spray 1 spr ay (OCEAN) 1 spray, each nostril, As needed, congestion, Starting on Thu10/02/21 at 0554 documented in this encounter Active and Recently Administered Medications Times are shown in WAITER/WAITRESS BAR. Scheduled Medication Order 10/05/2021 10/06/2021 10/07/2021 acetaminophen tablet 1,000 mg (TYLENOL) 0214 (Given - Provider: Lexis Sanz RChris.)0831 (Given - Provider: Monet Gregorio R.N.)150 (Given - Provider: Monet Gregorio R.N.)2025 (Given - Provider: Lexis Sanz R.N.) 0419 (Given - Provider: Lexis johnson R.N.)0920 (Given - Provider: Monet Gregorio R.Bismark.)154 (Given - Provider: Monet Gregorio R.N.)2010 (Given - Provider: Lexis Sanz R.Bismark.) 0242 (Given - Provider: Ree Dudley RYiN.)0839 (Given - Provider: Phoebejanna Holley R.N.)1427 (Given - Provider: Phoebe Holley R.N.) 1,000 mg, oral, Every 6 hours, First dos e on Thu10/01/21 at 2100, not to exceed 4 grams in 24 hours. apixaban tablet 10 mg (ELIQUIS) (CANCELED) 1307 (Given - Provider: Monet Gregorio R.N.)2026 (Given - Provider: Lexis Sanz R.N.) 10 mg, oral, 2 times daily, [...] R.N.)2026 (Given - Provider: Lexis Sanz R.N.) 0917 (Given - Provider: Monet Gregorio R.N.)2011 (Given - Provider: Lexis Sanz R.N.) 0841 (Given - Provider: Camilo Painting) 2 spray, each nostril, 2 times daily, First dose on Thu10/01/21 a t 2100 loratadine tablet 10 mg (CLARITIN) 0831 (Given - Provi justin: Monet Gregorio R.N.) 0916 (Given - Provider: Monet Gregorio R.N.) 0840 ( Given - Provider: Phoebe Holley R.N.) 10 mg, oral, Daily, First dose on 09/24 at 0900, loratadine 10 mg oral daily was interchanged for cetirizine 10 mg oral daily jkkhicprll-vectjpbzysm-rzihorajnlozfti 0.033-0.02-0.033 % na minal spray 2 spray 916 (Given - Provider: Monet Gregorio R.N.)2011 (Given - Provider: Lexis Sanz R.N.) 0842 (Given - Provider: Phoebe Holley RYi NYi) 2 spray, each nostril, 2 times daily, Fi rst dose on Thu10/06/21 at 0900, Shake very well prior to each use. montelukast tablet 10 mg (SINGULAIR) 2025 (Given - Pro vider: Lexis Sanz R.N.) 2010 (Given - Provider: Lexis Sanz R.N.) 10 mg, oral, Daily at bedtime, First dose on Thu10/01/[address] tablet 40 mg (PROTONIX) 47 (Given - Provider: Lexis Sanz R.N.) 0646 [...] 0840 (Not Given - Provider: Phoebe Holley RYiNYi - Reason: Patient/family refused) 1 tablet, oral, [...] Dose (un 1310 (Stopped - Provider: Monet spear R.N. - Comment: switching to oral eliquis, [...] 2025 (Given - Prov ider: Lexis Sanz RYiNYi) 2233 (Given - Provider: Lexis Sanz RYiNYi) 1724 (Given - Provider: Quyen Shi RYiNYi) 2.5 mg, nebulization, Every 8 hours PRN, wheezing, shortness of breath, Starting on Thu10/01/21 at 1820 dextromethorphan-guaiFENesin 10-100 mg/5 mL syrup 5 mL (MAMIE STYLES-DM) 0137 (Given - Provider: Lexis Sanz RYiNYi)0917 (Given - Provider: Monet Gregorio RYiNYi) 5 mL, oral, Every 4 hours PRN, cough, Starting on 10/05/21 at 2052 heparin (porcine) 1,000 unit/mL injection 3,100 Units (CANCELED) 0240 (Given - Provider: Lexis Sanz RYiNYi) 3,100 Units (rounded from 3,120 Units = [...] L (DUONEB) 0020 (Given - Provider: Lexis Sanz, RYiN.)1449 (Given - Provider: Monet Gregorio RDung) 3 mL, nebulization, 4 times daily PRN, [...] 1) 1504 (Given - Provider: Monet Gregorio RYiN.) 0018 (Given - Provider: Lexis Sanz RDung) 10 mg, oral, Every 4 hours PRN, [...] given
documented in this encounter Care Teams Hooker On Relationship Specialty Start Date End Date Elsewhere, Pcp PCP - General Internal Medicine 10/01/21 documented as of this encounter
--- OUTSIDE RECORDS SUMMARY | 2022-05-01 16:17 | XMS_ITS | Encounter Summary ---
:1950 Author Organization [facility] Address [address] [place] [address] Care Team Providers Name Role Phone Elsewhere, Pcp Primary Care Provider Unavailable Reason for Visit Outpatient (Routine) - Closed Specialty Diagnoses / Procedures Referred By Contact Refer red To Contact Allergy and Immunology Diagnoses [facility] [address] [place] [address] Referral ID Status Reason Start Date Expiration Date Visits Requ ested Visits Authorized [id number] Closed 09/09/2021 09/09/2022 1 1 Encounter Details Date Type Department Care Team Description 09/30/2021 Comprehensive Visit Division of Allergic Dimitri Miller Allergy Penicillin Diseases in L, P.A.-C. Antibiotic Personal [place], [place] 200 [facility] History (Primary Dx) [address] [place] [phone] Social History Tobacco Use Types Packs/Day Years [...] at Date Recorded Female 07/20/2021 9:20 PM DAY CARE DIRECTOR documented as of this encounter Consult Notes Dimitri Miller P.A.-C. - 09/30/2021 2:30 PM CST Chief complaint: Personal history of Augmentin allergy Supervised by: Dr. Jessee Zee ([id number]) Referring provider: Jessy Pineda M.D. [address] [place] [phone] SUBJECTIVE History of Present Illness: #1 Personal history of Augmentin allergy Nelda Pavon is a pleasant 70 y.o. female, presenting today for evaluation and management of a past history of a reaction to Augmentin. She and her recall that around 2010 she was given Augmentin for treatment of sinusitis. About two days into the course of the antibiotic she developed significant nausea, vomiting, and diarrhea. Her thinks she may have had hives as well. She recalls being seen in having the antibiotic stopped. She has avoided use of penicillin since that time. Ankitantibiotic she know she can taken tolerate is azithromycin. We reviewed that with hysteroscopy in July 2021 she did receive cefazolin and tolerated it without adverse event. Her past medical history is significant for asthma, allergic rhinitis, and eczema. ROS: See history of present illness Allergies Allergen Reactions ??? Amoxicillin-Pot Clavulanate Hives, Diarrhea and GI intolerance Negative histamine control on penicillin allergy testing Avoid penicillins & cephalosporins. May use cefazolin only. ??? Diclofenac Angioedema ??? Sulfa (Sulfonamide Antibiotics) Hives OBJECTIVE Physical examination: General: 70 y.o. female who appears her stated age. Mental: Alert and oriented in all spheres; in no acute distress Skin: Negative histamine control on penicillin allergy testing. Unable to determine current penicillin allergy status. ASSESSMENT / PLAN Impression/Report/Plan #1 Personal history of Augmentin allergy The results of Nelda Pavon's penicillin allergy skin prick testing reviewed in detail today. Wediscussed the interpretation and limitations penicillin allergy testing. We discussed that Nelda Pavon was unable to mount a response to our histamine control today. This could be due to medications (Zoloft, Zyrtec, Singulair, and Acosta Triple nasal spray) she takes. Without an adequate histamine control, we are unable to determine Nelda Pavon's current penicillin allergy status. Based upon clinical history, it is recommended that all beta-lactam antimicrobial agents be avoided with the exce ption of cefazolin which she has taken and tolerated subsequent to her reaction to the Augmentin. Nelda Pavon verbalized understanding our discussion today, and was in agreement with recommendations. IMPRESSION Negative histamine control on penicillin allergy testing RECOMMENDATION Avoid penicillins and cephalosporins. May use cefazolin only. PATIENT EDUCATION Ready to learn, no apparent learning barriers were identified; learning preferences include listening. 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 5 minutes were spent in review of the EMR for Nelda Pavon and 10 minutes were spent in evaluation, examination, and education during this in-person visit dated 09/30/21. CARE DIRECTOR documented in this encounter Miscellaneous Notes Addendum Note - Dimitri Miller P.A.-C. - 09/30/2021 2:30 PM DAY CARE DIRECTOR Addended by: DIMITRI MILLER on: 10/04/2021 11:13 AM Modules accepted: Level of Service CARE DIRECTOR documented in this encounter Plan of Treatment Upcoming Encounters Date Type Specialty Care Team Description 05/02/2022 Appointment Radiation Oncology Dot Lopez M.D. [address] [place] [phone] 05/05/2022 Appointment Radiation Oncology Judy Mccall M.D. [address] [place] [phone] 05/06/2022 Appointment Radiation Oncology Judy Mccall M.D. [address] [place] [phone] 05/06/2022 Appointment Radiation Oncology Judy Mccall M.D. [address] [place] [phone] 05/07/2022 Appointment Radiation Oncology Judy Mccall M.D. [address] [place] [phone] 05/08/2022 Appointment Radiation Oncology Judy Mccall M.D. [address] [place] [phone] 05/22/2022 Clinical Communication Admitting/Central Scheduling 05/26/2022 Appointment Radiology Merlyn Rose APRN, C.N.P., M.S.N. [address] [place] [phone] 05/27/2022 Office Visit Oncology Merlyn Rose APRN, C.N.P., M.S.N. [address] [place] [phone] documented as of this encounter Visit Diagnoses Diagnosis Allergy Penicillin Antibiotic Personal H istory - Primary documented in this encounter Additional Health Concerns Infection Onset Date Last Indicated Resolved Time COVID19 Pending 09/30/2021 09/30/2021 09/30/2021 4:20 PM DAY CARE DIRECTOR documented as of this encounter Care Teams Self Propelled Mining Machine Operator Relationship Specialty Start Date End Date Elsewhere, Pcp PCP - General Internal Medicine 10/01/21 documented as of this encounter
--- OUTSIDE RECORDS SUMMARY | 2022-05-01 16:17 | XMS_ITS | Encounter Summary ---
:1950 Author Organization [facility] Address [address] [place] [address] Care Team Providers Name Role Phone Unavailable Primary Care Provider Unavailable Reason for Visit Reason Comments Communication Encounter Details Date Type Department Care Team Description 09/03/2021 Clinical Communication Department of System, Provider Communication Obstetrics and Not In Gynecology in [place], [place] [address] [place] [address] Social History Tobacco Use Types Packs/Day Years Used Date Smoking Tobacco: Never Smokeless Tobacco: Never Alcohol Habits Answer Date Recorded How often do you have a drink containing alcohol? Never 03/17/2022 How many drinks containing alcohol do you have on a typical or 2 08/01/2021 day when you are drinking? How often do you have six or more drinks on one occasion? 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 IST INORGANIC Telephone Encounter - Yady Hooper - 09/03/2021 8:03 AM CST A message has been left for Ms. Pavon to return a call. Just wanting to verify with her that she is aware of her appointments for 09/04. IST INORGANIC documented in this encounter Plan of Treatment Upcoming Encounters Date Type Specialty Care Team Description 05/02/2022 Appointment Radiation Oncology Dot Lopez M.D. [address] [place] [address] [phone] 05/05/2022 Appointment Radiation Oncology Judy Mccall M.D. [address] [place] [phone] 05/06/2022 Appointment Radiation Oncology Judy Mccall M.D. [address] [place] [phone] 05/06/2022 Appointment Radiation Oncology Judy Mccall M.D. [address] [place] [address] [phone] 05/07/2022 Appointment Radiation Oncology Judy Mccall M.D. [address] [place] [address] [phone] 05/08/2022 Appointment Radiation Oncology Judy Mccall M.D. [address] [place] [address] [phone] 05/22/2022 Clinical Communication Admitting/Central Scheduling 05/26/2022 Appointment Radiology Merlyn Rose APRN, C.NAye., M.S.N. [address] [place] [phone] 05/27/2022 Office Visit Oncology Merlyn Rose APRN, C.NAye., M.S.N. [address] [place] [phone] documented as of this encounter Visit Diagnoses Not on filedocumented in this encounter
--- OUTSIDE RECORDS SUMMARY | 2022-05-01 16:17 | XMS_ITS | Encounter Summary ---
:1950 Author Organization [facility] Address [address] [place] [address] Care Team Providers Name Role Phone Unavailable Primary Care Provider Unavailable Encounter Details Date Type Department Care Team Description 09/09/2021 Clinical Communication Department of Bailee Rocha, Obstetrics and R.N. 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 - 09/09/2021 11:00 AM CST Per Doctor Miriam, I contacted Sugar to discuss her MRI results. Doctor Pineda recommends proceeding with surgery as scheduled on 10/01/21. I will arrange other preoperative appointments and an in-person visit with Doctor Pineda on 09/30/21. She understood and had no questions. [employer]ER LACE [employer] TEXTILES documented in this encounter Plan of Treatment Upcoming Encounters Date Type Specialty Care Team Description 05/02/2022 Appointment Radiation Oncology Dot Lopez M.D. [address] [place] [address] [phone] 05/05/2022 Appointment Radiation Oncology Judy Mccall M.D. [address] [place] [address] [phone] 05/06/2022 Appointment Radiation Oncology Judy Mccall M.D. [address] [place] [address] [phone] 05/06/2022 Appointment Radiation Oncology Judy Mccall M.D. [address] [place] [address] [phone] 05/07/2022 Appointment Radiation Oncology Judy Mccall M.D. [address] [place] [phone] 05/08/2022 Appointment Radiation Oncology Judy Mccall M.D. [address] [place] [address] [phone] 05/22/2022 Clinical Communication Admitting/Central Scheduling 05/26/2022 Appointment Radiology Merlyn Rose APRN, Ellen.N.P., M.S.N. [address] [place] [phone] 05/27/2022 Office Visit Oncology Merlyn Rose APRN, C.N.P., M.S.N. [address] [place] [phone] documented as of this encounter Visit Diagnoses Not on filedocumented in this encounter
--- OUTSIDE RECORDS SUMMARY | 2022-05-01 16:17 | XMS_ITS | Encounter Summary ---
:1950 Author Organization [facility] Address [address] [place] [address] Care Team Providers Name Role Phone Unavailable Primary Care Provider Unavailable Encounter Details Date Type Department Care Team Description 09/04/2021 Diagnostic Division of Pulmonary Jessy Pnieda, [facility] [place] [address] [facility] [address] [place] [phone] (Wo rk) Social History Tobacco Use Types Packs/Day Years Used Date Smoking Tobacco: Never Smokeless Tobacco: Never Alcohol Habits Answer Date Recorded How often do you have a drink containing alcohol? Never 03/17/2022 How many drinks containing alcohol do you have on a typical 1 or 2 08/01/2021 day when you are [...] More than 4 times per year 03/17/2022 christian services? 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 [address] [place] [phone] 05/05/2022 Appointment Radiation Oncology Judy Mccall M.D. [address] [place] [phone] 05/06/2022 Appointment Radiation Oncology Judy Mccall M.D. [address] [place] [phone] 05/06/2022 Appointment Radiation Oncology Judy Mccall M.D. [address] [place] [phone] 05/07/2022 Appointment Radiation Oncology Judy Mccall M.D. [address] [place] [phone] 05/08/2022 Appointment Radiation Oncology Judy Mccall M.D. [address] [place] [phone] 05/22/2022 Clinical Communication Admitting/Central Scheduling 05/26/2022 Appointment Radiology Merlyn Rose APRN, C.N.P., M.S.N. [address] [place] [phone] 05/27/2022 Office Visit Oncology Merlyn Rose APRN, C.N.P., M.S.N. [address] [place] [phone] documented as of this encounter Procedures Procedure Name Priority Date/Time Associated Diagnosis Comme nts EXHALED NITRIC Routine 09/04/2021 9:59 AM Chronic Cough Result s for this OXIDE BUTTONHOLE MARKER procedure are i n the results section. documented in this encounter Results Exhaled Nitric Oxide - Pulmonology (09/04/2021 9:59 AM BUTTONHOLE MARKER) P athologist Signature Exhaled NO Oral 18 ONBASE Parts per 39 ONBASE billion (ULN) Specimen (Source) Anatomical Location Collection Method / Collectio n Time Received Time / Laterality Volume Jessy Pineda M.D. PFT ORDERABLES Performing Organization Address City/State/ZIP Code Phon e Number ONBASE ONBASE NA documented in this encounter Visit Diagnoses Diagnosis Chronic Cough documented in this encounter
--- OUTSIDE RECORDS SUMMARY | 2022-05-01 16:17 | XMS_ITS | Encounter Summary ---
:1950 Author Organization [facility] Address [address] [place] [address] Care Team Providers Name Role Phone Unavailable Primary Care Provider Unavailable Encounter Details Date Type Department Care Team Description 09/01/2021 Lab Department of [facility] Jessy Pineda, Preprocedural Lab Exam; [facility] Contact With And (Suspected) [facility], [place] [address] [address] [phone] [place] [address] [facility] [phone] Social History Tobacco Use Types Packs/Day Years [...] at Date Recorded Female 07/20/2021 9:20 PM CITY MARSHAL documented as of this encounter Plan of Treatment Upcoming Encounters Date Type Specialty Care Team Description 05/02/2022 Appointment Radiation Oncology Dot Lopez M.D. [address] [place] [phone] 05/05/2022 Appointment Radiation Oncology Judy Mccall M.D. [address] [place] [phone] 05/06/2022 Appointment Radiation Oncology Judy Mccall M.D. [address] [place] [phone] 05/06/2022 Appointment Radiation Oncology Judy Mccall M.D. [address] [place] [phone] 05/07/2022 Appointment Radiation Oncology Judy Mccall M.D. [address] [place] [phone] 05/08/2022 Appointment Radiation Oncology Judy Mccall M.D. [address] [place] [phone] 05/22/2022 Clinical Communication Admitting/Central Scheduling 05/26/2022 Appointment Radiology Merlyn Rose APRN, C.N.P., M.S.N. [address] [place] [phone] 05/27/2022 Office Visit Oncology Merlyn Rose APRN, C.N.P., M.S.N. [address] [place] [phone] documented as of this encounter Procedures Procedure Name Priority Date/Time Associated Diagnosis Comme nts SARS CORONAVIRUS-2 Routine 09/01/2021 10:11 Preprocedura l Lab Exam Results for this RNA, V AM CITY MARSHAL Contact With And procedure a re in (Suspected) Exposure the res ults To COVID-19 section. documented in this encounter Results SARS Coronavirus-2 RNA, V Asymptomatic (09/01/2021 10:11 AM CITY MARSHAL) [facility] gist Method Time Signature SARS-CoV-2 Swab, 09/01/2021 MKTO Specimen Nasopharynx 10:53 PM Source CITY MARSHAL SARS CoV-2 Undetected Undetected 09/01/2021 MKTO RNA, TMA 10:53 PM CITY MARSHAL Comment: SARS-CoV-2 RNA absent. This result does not rule out COVID-19 in the patient, as the sensitivity of the test depends o n the timing of the specimen collection and the quality of the specim en. Result should be correlated with patient's history and clinical presentat ion. ----ADDITIONAL INFORMATION---- This molecular amplification test was pe rformed using the Aptima SARS-CoV-2 assay ([employer] on the iHydroRuns tem under emergency use authorization (EUA) by the U.S. Food and Drug Administ ration. Fact sheets for this EUA assay can be fo und at the following links: For Healthcare Providers: https://www.fd a.gov/media/859074/download For Patients: https://www.fda.gov/media/ 790951/download Specimen Anatomical Collection Method Collection Time Receive d Time (Source) Location / / Volume Laterality Varies 09/01/2021 10:11 09/01/2021 4:33 (Nasopharynx) AM CITY MARSHAL PM CITY MARSHAL Jessy Pineda M.D. LAB MICROBIOLOGY - GENERAL O RDERABLES Performing Organization Address City/State/ZIP Code Phon e Number [facility] [address] [place] [id number] [place] [address] [place] [address] System in [address] documented in this encounter Visit Diagnoses Diagnosis Preprocedural Lab Exam Contact With And (Suspected) Exposure To COVID-19 documented in this encounter Additional Health Concerns Infection Onset Date Last Indicated Resolved Time COVID19 Pending 08/31/2021 09/01/2021 09/01/2021 10:54 PM CITY MARSHAL documented as of this encounter
--- OUTSIDE RECORDS SUMMARY | 2022-05-01 16:17 | XMS_ITS | Encounter Summary ---
:1950 Author Organization [facility] Address [address] [place] [address] Care Team Providers Name Role Phone Unavailable Primary Care Provider Unavailable Reason for Visit Reason Onset Date Comments OSM 09/13/2021 Encounter Details Date Type Department Care Team Description 09/13/2021 Clinical Communication Preoperative Evaluation Giovanna Miller, [facility] in [facility], C.N.[place], [place] M.S.N. [address] [facility] [address] [place] [phone] [place], [place] [phone] Social History Tobacco Use Types Packs/Day Years [...] Date Recorded Female 07/20/2021 9:20 PM PHOTO CHECKER documented as of this encounter Miscellaneous Notes Telephone Encounter - Farhan Mota Ellen - 09/13/2021 3:06 PM CST OSM Template: ??? 09-13-21 ??? Cardiology: o ECG: Yes 07/16/22 EMR o Echo: Yes 01/2717 CE o Stress: o Holter Monitor Report: o Cath with Report: ??? Labs: date, facility completed at or called to receive o CBC o BMP (Chem. History) o Hemoglobin/HgbA1c ??? Imaging: o Cardiac MR: ??? Procedures: o Cardiac Device Interrogation: ??? Car Seat Upholsterer Notes: ??? Primary Care Notes: ??? Medication List ??? Any additional useful information to relay to PRESS OPERATOR [employer] Outside Material Needed: ?Cath with report (most recent) ??? Blood test results recent CBC, BMP, HgbA1c, (within 6 months) ??? Cardiac Device interrogation (most recent) ??? Cardiac MR (most recent) ??? Car Seat Upholsterer notes (most recent if there is not CE information) ??? Cardiac Stress Test Report (most recent) ??? ECG tracings- (most recent within last 3 years) ??? Echocardiograms (most recent within last 7 years) ??? Holter monitor report (most recent) ??? Primary care notes (most recent)- if new to [facility] ??? Medication list ??? Pulmonary Function Test (most recent) Contact Information Resources: [facility] Fax #: [phone] Email: [email or web address] Shipped materials should be sent to: [facility] Perioperative Clinic Attention: [place] [address] [place] [address] O CHECKER documented in this encounter Plan of Treatment Upcoming Encounters Date Type Specialty Care Team Description 05/02/2022 Appointment Radiation Oncology Dot oLpez M.D. [address] [place] [phone] 05/05/2022 Appointment Radiation Oncology Judy Mccall M.D. [address] [place] [phone] 05/06/2022 Appointment Radiation Oncology Judy Mccall M.D. [address] [place] [phone] 05/06/2022 Appointment Radiation Oncology Judy Mccall M.D. [address] [place] [phone] 05/07/2022 Appointment Radiation Oncology Judy Mccall M.D. [address] [place] [phone] 05/08/2022 Appointment Radiation Oncology Judy Mccall M.D. [address] [place] [phone] 05/22/2022 Clinical Communication Admitting/Central Scheduling 05/26/2022 Appointment Radiology Merlyn Rose APRN, C.N.P., M.S.N. [address] [place] [phone] 05/27/2022 Office Visit Oncology Merlyn Rose APRN, C.N.P., M.S.N. [address] [place] [phone] documented as of this encounter Visit Diagnoses Not on filedocumented in this encounter
--- OUTSIDE RECORDS SUMMARY | 2022-05-01 16:17 | XMS_ITS | Encounter Summary ---
:1950 Author Organization [facility] Address [address] [place] [address] Care Team Providers Name Role Phone Unavailable Primary Care Provider Unavailable Reason for Visit Outpatient (Routine) - Closed Specialty Diagnoses / Procedures Referred By Contact Refer red To Contact Anesthesiology Diagnoses Preprocedural Lab Exam Jessy Pineda M.D. [facility] [address] [place] [phone] Referral ID Status Reason Start Date Expiration Date Visits Requ ested Visits Authorized [id number] Closed 09/09/2021 09/09/2022 1 1 Encounter Details Date Type Department Care Team Description 09/16/2021 Comprehensive Visit Preoperative Yumiko Pineda M.D. [address] [place] [phone] Preanesthetic Medical Exam (Primary Dx); Evaluation Center Ann-Marie Colmenares, ALVA, C.N.P. [address] [place] [phone] Preprocedural Lab Exam; in [place], [facility] Mild Pe rsistent ([facility]); [place] [facility]; [address] [place] [address] Gastroesophageal Reflux Dise ase Without Esophagitis; [place], [place] Morbid Obesity Body Mass Index >= 35 with Comorbid Condition ([facility]); [phone] Malignant Neoplasm Of Uterus Endometrial ([facility]); [phone] Depression Shara r One Episode Mild ([facility]) Social History Tobacco Use Types Packs/Day Years [...] or relatives? How often do you attend restorationist or More than 4 times per year 03/17/2022 judaism services? Do you belong to any clubs or Yes 03/17/2022 organizations such as restorationist groups, unions, fraternal or athletic groups, or [...] at Date Recorded Female 07/20/2021 9:20 PM TOOL TENDER documented as of this encounter Last Filed Vital Signs Vital Sign Reading Time Taken Comments Blood Pressure 118/75 09/16/2021 3:06 PM TOOL TENDER Pulse 70 09/16/2021 3:06 PM TOOL TENDER Temperature 36.1 ??C (97 ??F) 09/16/2021 2:31 PM TOOL TENDER Respiratory Rate - - Oxygen Saturation 96% 09/16/2021 3:06 PM TOOL TENDER Inhaled Oxygen Concentration - - Weight 103 kg (226 lb 13.7 oz) 09/16/2021 2:31 PM TOOL TENDER Height 164.5 cm (5' 4.76) 09/16/2021 2:31 PM TOOL TENDER Body Mass Index 38.03 09/16/2021 2:31 PM TOOL TENDER documented in this encounter H&P Notes Ann-Marie Colmenares APRN, C.N.P. - 09/16/2021 2:45 PM CST REASON FOR VISIT: Preoperative Medical Evaluation REFERRING PHYSICIAN: Jessy Pineda M.D. 10/01/2021: ROBOTIC-ASSISTED HYSTERECTOMY WITH BILATERAL SALPINGO OOPHORECTOMY; Jessy Pineda M.D. Surgery Specific Risk Classification: Low Risk / Elevated Risk: Intermediate Risk SUBJECTIVE HISTORY OF PRESENT ILLNESS Nelda Pavon is a 70 y.o. female who is here for preanesthetic medical examination prior to the planned procedure as listed above. Mrs. Pavon was seen locally in June 2021 for postmenopausal bleeding. Endometrial biopsy was negative for hyperplasia, atypia or malignancy. Pelvic ultrasound noted fundal uterine fibroid taking up to 5.0 cm. Endometrium showed an asymmetrical 5 mm low endometrialhypoechoic mass. Patient underwent a hysteroscopy, cervical biopsy and D&C in July 2021. In August a CT noted fine heterogeneous enhancing mass replacement of the endometrium and myometrium that is likely from endometrial carcinoma. The following portions of the patient's history were reviewed and updated as appropriate: allergies,current medications, medical history, social history, surgical history and problem list. REVIEW OF SYSTEMS Musculoskeletal: Negative for arthralgias and pain or stiffness in the joints. The following systems were negative: Constitutional, CV, Respiratory, Neuro Cardiac Risk Scoring: Sebastian Cardiac Score: 0.17 % RCRI Point Count: 0 RCRI Score: 0.4% DASI Calculations Flowsheet Row Comprehensive Visit from 09/16/2021 in Preoperative Evaluation Center in [place], [place] Estimated V02 Peak 20.01 Estimated MET Level 5.72 OBJECTIVE OBJECTIVE PHYSICAL EXAMINATION General/Constitutional Constitutional Assessment: Obese General State of Health: Healthy appearing Airway (HEENT) Patient notes two front chipped teeth. Mallampati: III TM Distance: >3 FB Neck ROM: Full Mouth Opening: > 3 cm Upper Lip Bite Test: I Dental Assessment: Dentition intact Cardiovascular Rhythm: Regular Rate: Normal Cardiovascular Assessment: Normal Pulmonary Pulmonary Assessment: Clear and non labored Neurological Neurologic Assessment: Alert and oriented X 3 Musculoskeletal MSK Assessment: Normal Gait: Normal Ambulate with: None Psychiatric Psychiatric Assessment: Calm Dermatology Skin Assessment: normal ASSESSMENT / PLAN Anesthesia: Patient reports previous anesthesia related complications - difficulty waking following an outpatient procedure. Airway Hx: none #1 Preanesthetic Medical Exam #2 Preprocedural Lab Exam Lab: CBC and BMP drawn today in [facility]. Results pending. ECG: Dated 09/16/2021 notes; normal sinus rhythm, left axis deviation, low anterior forces, low-voltage QRS, nonspecific T-wave abnormality, no prior ECGs available. Patient notes she is not currently exercising. She is able to meet > 5 METS with ADL's. #3 Malignant Neoplasm Of Uterus Endometrial (HCC) #4 Chronic cough Patient was evaluated in the pulmonology Department today for history of chronic cough. PFT dated 09/04/2021 notes; FEV1/FVC 85.7. DLCO-SB 15.9/79% predicted. Patient was prescribed little triple spray and twice daily sinus rinse. Notes suggest patient's symptoms are most consistent with cough related upper airway cough syndrome. #5 Sleep Apnea Compliant with CPAP. Instructed to bring CPAP with her to surgery. #6 Gastroesophageal Reflux Disease Without Esophagitis Well controlled with omeprazole daily in a.m. Instructed to take a.m. of surgery. #7 Morbid Obesity Body Mass Index >= 35 with Comorbid Condition (HCC) BMI 38. #8 Depression Major One Episode Mild (HCC) Instructed to take Zoloft a.m. of surgery. PATIENT EDUCATION: Reviewed Checklist for Surgical Patients [id number] rev 0920. Written and verbal instructions given on medication management before surgery. RECOMMENDATIONS: Patient medically optimized for planned procedure: Yes Further Recommendations: None TENDER documented in this encounter Plan of Treatment Upcoming Encounters Date Type Specialty Care Team Description 05/02/2022 Appointment Radiation Oncology Dot Lopez M.D. 200 [place] [phone] 05/05/2022 Appointment Radiation Oncology Judy Mccall M.D. [address] [place] [phone] 05/06/2022 Appointment Radiation Oncology Judy Mccall M.D. [address] [place] [phone] 05/06/2022 Appointment Radiation Oncology Judy Mccall M.D. [address] [place] [phone] 05/07/2022 Appointment Radiation Oncology Judy Mccall M.D. [address] [place] [phone] 05/08/2022 Appointment Radiation Oncology Judy Mccall M.D. [address] [place] [phone] 05/22/2022 Clinical Communication Admitting/Central Scheduling 05/26/2022 Appointment Radiology Merlyn Rose APRN C.N.P., M.S.N. [address] [place] [phone] 05/27/2022 Office Visit Oncology Merlyn Rose APRN C.N.P., M.S.N. [address] [place] [phone] documented as of this encounter Procedures Procedure Name Priority Date/Time Associated Diagnosis Comme nts CBC WITH Routine 09/16/2021 3:47 PM Preprocedural Lab Exam Results for this DIFFERENTIAL, B TOOL TENDER Preanesthetic Medical pro cedure are in Exam the results section. BASIC METABOLIC Routine 09/16/2021 3:47 PM Preprocedural Lab Exam Results for this PANEL, S/P TOOL TENDER Preanesthetic Medical proced ure are in Exam the results section. documented in this encounter Results CBC with Differential, Blood (09/16/2021 3:47 PM TOOL TENDER) P athologist Signature Hemoglobin 13.5 11.6 - 09/16/2021 DTL 15.0 g/dL 4:03 PM TOOL TENDER Hematocrit 43.3 35.5 - 09/16/2021 DTL 44.9 % 4:03 PM TOOL TENDER Erythrocytes 4.84 3.92 - 09/16/2021 DTL 5.13 4:03 PM TOOL TENDER x10(12)/L MCV 89.5 78.2 - 09/16/2021 DTL 97.9 fL 4:03 PM TOOL TENDER RBC Distrib Width 13.8 12.2 - 09/16/2021 DTL 16.1 % 4:03 PM TOOL TENDER Platelet Count 193 157 - 371 09/16/2021 DTL x10(9)/L 4:03 PM TOOL TENDER Leukocytes 6.1 3.4 - 9.6 09/16/2021 DTL x10(9)/L 4:03 PM TOOL TENDER Neutrophils 3.83 1.56 - 09/16/2021 DTL 6.45 4:03 PM TOOL TENDER x10(9)/L Lymphocytes 1.56 0.95 - 09/16/2021 DTL 3.07 4:03 PM TOOL TENDER x10(9)/L Monocytes 0.57 0.26 - 09/16/2021 DTL 0.81 4:03 PM TOOL TENDER x10(9)/L Eosinophils 0.11 0.03 - 09/16/2021 DTL 0.48 4:03 PM TOOL TENDER x10(9)/L Basophils 0.04 0.01 - 09/16/2021 DTL 0.08 4:03 PM TOOL TENDER x10(9)/L Specimen Anatomical Collection Method Collection Time Receive d Time (Source) Location / / Volume Laterality Blood (Blood, 09/16/2021 3:47 PM 09/16/19 3:55 Venous) TOOL TENDER PM TOOL TENDER Ann-Marie Colmenares APRN, C.N.P. LAB BLOOD ADD-ON Performing Organization Address City/State/ZIP Code Phon e Number [facility] - [address] [place], [place] [address] [place] [address] [facility] [address] (ABNORMAL) Basic Metabolic Panel (09/16/2021 3:47 PM TOOL TENDER) P athologist Signature Potassium, S 4.0 3.6 - 5.2 09/16/2021 DTL mmol/L 4:34 PM TOOL TENDER Sodium, S 140 135 - 145 09/16/2021 DTL mmol/L 4:34 PM TOOL TENDER Chloride, S 103 98 - 107 09/16/2021 DTL mmol/L 4:34 PM TOOL TENDER Bicarbonate, S 27 22 - 29 09/16/2021 DTL mmol/L 4:34 PM TOOL TENDER Anion Gap 10 7 - 15 09/16/2021 DTL 4:34 PM TOOL TENDER BUN (Blood Urea 12 6 - 21 09/16/2021 DTL Nitrogen), S mg/dL 4:34 PM TOOL TENDER Creatinine 0.98 0.59 - 09/16/2021 DTL 1.04 mg/dL 4:34 PM TOOL TENDER eGFR-Non 59 (L) >=60 09/16/2021 DTL Black/ mL/min/BSA 4:34 PM TOOL TENDER [place] Comment: ----ADDITIONAL INFORMATION---- Estimated GFR calculated using the 2009 CKD_EPI creatinine equation. eGFR-Black/ 68 >=60 mL/min/BSA 2021 4:34 PM TOOL TENDER DTL Comment: ----ADDITIONAL INFORMATION---- Estimated GFR calculated using the 2009 CKD_EPI creatinine equation. Calcium, Total, S 9.0 8.8 - 10.2 mg/dL 09/16/2021 4:34 PM TOOL TENDER DTL Glucose, S 105 70 - 140 mg/dL 09/16/2021 4:34 PM TOOL TENDER D TL Specimen Anatomical Collection Method Collection Time Receive d Time (Source) Location / / Volume Laterality Blood (Blood, 09/16/2021 3:47 PM 09/16/19 4:13 Venous) TOOL TENDER PM TOOL TENDER Ann-Marie Colmenares APRN, C.N.P. LAB BLOOD ADD-ON Performing Organization Address City/State/ZIP Code Phon e Number [facility] - 200 [place], [place] [address] [place] [address] [facility] 200 [facility] documented in this encounter Visit Diagnoses Diagnosis Preanesthetic Medical Exam - Primary Preprocedural Lab Exam Asthma Mild Persistent (HCC) Sleep Apnea Gastroesophageal Reflux Disease Without Esophagitis Morbid Obesity Body Mass Index >= 35 wit h Comorbid Condition (HCC) Malignant Neoplasm Of Uterus Endometrial (HCC) Depression Major One Episode Mild (HCC) documented in this encounter
--- OUTSIDE RECORDS SUMMARY | 2022-05-01 16:17 | XMS_ITS | Encounter Summary ---
:1950 Author Organization [facility] Address [address] [place] [address] Care Team Providers Name Role Phone Unavailable Primary Care Provider Unavailable Reason for Visit Reason Comments Allergy Testing Outpatient (Routine) - Closed Specialty Diagnoses / Procedures Referred By Contact Refer red To Contact Diagnoses Preprocedural Lab Exam Jessy Pineda M.D. [facility] Procedures Penicillin Skin Test [address] [place], [place] [phone] Referral ID Status Reason Start Date Expiration Date Visits Requ ested Visits Authorized [id number] Closed 09/09/2021 09/09/2022 1 1 Encounter Details Date Type Department Care Team Description 09/30/2021 Clinical Support Division of Erum Pineda M.D. [address] [place] [phone] Preprocedural Lab Allergic Diseases Linda Geronimo R.N. [address] [place] [phone] Exam in [place], [place] [address] [place] [phone] Social History Tobacco Use Types Packs/Day Years [...] More than 4 times per year 03/17/2022 caodaism services? Do you belong to any clubs [...] at Date Recorded Female 07/20/2021 9:20 PM MULTIMEDIA MANAGER documented as of this encounter Plan of Treatment Upcoming Encounters Date Type Specialty Care Team Description 05/02/2022 Appointment Radiation Oncology Dot Lopez M.D. [address] [place] [phone] 05/05/2022 Appointment Radiation Oncology Judy Mccall M.D. [address] [place] [phone] 05/06/2022 Appointment Radiation Oncology Judy Mccall M.D. [address] [place] [phone] 05/06/2022 Appointment Radiation Oncology Judy Mccall M.D. [address] [place] [phone] 05/07/2022 Appointment Radiation Oncology Judy Mccall M.D. [address] [place] [phone] 05/08/2022 Appointment Radiation Oncology Judy Mccall M.D. [address] [place] [phone] 05/22/2022 Clinical Communication Admitting/Central Scheduling 05/26/2022 Appointment Radiology Merlyn Rose APRN, C.NAye., M.S.N. [address] [place] [phone] 05/27/2022 Office Visit Oncology Merlyn Rose APRN, C.N.P., M.S.N. [address] [place] [phone] documented as of this encounter Visit Diagnoses Diagnosis Preprocedural Lab Exam documented in this encounter Additional Health Concerns Infection Onset Date Last Indicated Resolved Time COVID19 Pending 09/30/2021 09/30/2021 09/30/2021 4:20 PM MULTIMEDIA MANAGER documented as of this encounter
--- OUTSIDE RECORDS SUMMARY | 2022-05-01 16:17 | XMS_ITS | Encounter Summary ---
:1950 Author Organization [facility] Address [address] [place] [address] Care Team Providers Name Role Phone Unavailable Primary Care Provider Unavailable Reason for Referral MRI/CAT/PET Scan (Routine) - Closed Specialty Diagnoses / Procedures Referred By Contact Refer red To Contact Diagnoses Mass Uterus Lymphadenopathy Jessy Pineda M.D. [facility] Procedures PET CT Skull to Thigh FDG [address] [place] [phone] Referral ID Status Reason Start Date Expiration Date Visits Requ ested Visits Authorized [id number] Closed 08/29/2021 08/29/2022 1 1 T ARTIST Reason for Visit MRI/CAT/PET Scan (Routine) - Closed Specialty Diagnoses / Procedures Referred By Contact Refer red To Contact Diagnoses Mass Uterus Lymphadenopathy Jessy Pineda M.D. [facility] Procedures PET CT Skull to Thigh FDG [address] [place], [place] [phone] Referral ID Status Reason Start Date Expiration Date Visits Requ ested Visits Authorized [id number] Closed 08/29/2021 08/29/2022 1 1 Encounter Details Date Type Department Care Team Description 08/29/2021 Hospital Encounter Department of Jessy Pineda Mass Uterus; Radiology, Clive Crenshaw M.D. Lymphadenopathy Building, in [address] [place], [place] [address] [facility] [phone] [place], [place] [phone] (Work) [phone] Social History Tobacco Use Types Packs/Day Years [...] or more drinks on one occasion? Ne isbaella 08/01/2021 Comment: Not asked Social Isolation Answer [...] at Date Recorded Female 07/20/2021 9:20 PM CRAFT ARTIST documented as of this encounter Medications at Time of Discharge Medication Sig Dispensed Refills Start Date End Date albuterol 2.5 mg /3 mL Inhale 2.5 mg every 4 0 nebulizer solution (four) hours as needed for wheezing. albuterol 90 Inhale 2 puffs every 4 0 08/22/2019 mcg/actuation inhaler (four) hours as needed for wheezing. cetirizine (ZyrTEC) 10 Take 1 tablet by mouth 0 1 09/12/2009 mg tablet daily. fluticasone propionate Administer 2 sprays 0 07/0 03/2021 (FLONASE) 50 into nostril(s) 2 (two) mcg/actuation nasal times a day. spray ipratropium-albuteroL Inhale 3 mL every 6 0 07/30 (DUONEB) 0.5-2.5 mg/3 mL (six) hours as needed nebulizer solution for wheezing or shortness of breath. montelukast (SINGULAIR) Take 1 tablet by mouth 0 11/29/2020 10 mg tablet at bedtime. omeprazole (PriLOSEC) 20 Take 20 mg by mouth [address] capsule every morning before breakfast. sertraline (ZOLOFT) 100 Take 100 mg by mouth 0 mg tablet every morning. documented as of this encounter Plan of Treatment Upcoming Encounters Date Type Specialty Care Team Description 05/02/2022 Appointment Radiation Oncology Dot Lopez M.D. [address] [place] [phone] 05/05/2022 Appointment Radiation Oncology Judy Mccall M.D. [address] [place] [phone] 05/06/2022 Appointment Radiation Oncology Judy Mccall M.D. [address] [place] [phone] 05/06/2022 Appointment Radiation Oncology Judy Mccall M.D. [address] [place] [phone] 05/07/2022 Appointment Radiation Oncology Judy Mccall M.D. [address] [place] [phone] 05/08/2022 Appointment Radiation Oncology Judy Mccall M.D. [address] [place] [phone] 05/22/2022 Clinical Communication Admitting/Central Scheduling 05/26/2022 Appointment Radiology Merlyn Rose APRN, C.N.P., M.S.N. [address] [place] [phone] 05/27/2022 Office Visit Oncology Merlyn Rose APRN, C.N.P., M.S.N. [address] [place] [phone] documented as of this encounter Procedures Procedure Name Priority Date/Time Associated Comments Diagnosis PET CT SKULL TO RAD - Routine 08/29/2021 12:33 Mass Uterus Results for this THIGH (most inpatients PM CRAFT ARTIST Lymphadenopathy procedur e are in and all the results outpatients) section. documented in this encounter Results PET CT Skull to Thigh FDG (08/29/2021 12:33 PM CRAFT ARTIST) Anatomical Region Laterality Modality Body, Nuclear Medicine PET RST LOS, N/A Posi luisana Emission Tomography (PET), PET ARZ LOS, Nuclear Medicine PET FLA Po sitron Emission Tomography (PET) LOS, Nuclear Medicine Specimen (Source) Anatomical Collection Method Collection Time Re ceived Time Location / / Volume Laterality 08/29/2021 8:40 PM CRAFT ARTIST Impressions 08/29/2021 8:52 PM CRAFT ARTIST 1. ??Intense FDG activity within suspected endometrial carcinoma, with right iliac, left periaortic tea metastases and suspected infiltration into adjacent fat posteriorly and along the left adnex a. 2. ??Indeterminate mild activity in a fe w mildly enlarged left iliac lymph nodes. Narrative 08/29/2021 8:52 PM CRAFT ARTIST EXAM: ??PET CT SKULL TO THIGH FDG Serum glucose at time of F-18 FDG inject ion was 86 mg/dL. Patient followed standard dietary/fasting requirements fo r this exam. RADIOPHARMACEUTICAL/MEDS: Route: intravenous fludeoxyglucose F 18 injection CUSTODIAL (FDG F-18),9.9 millicurie TECHNIQUE: ??F-18 FDG PET/CT scan was pe rformed from the orbits through the thighs with low dose, non-contrast, free -breathing CT images for attenuation correction and anatomic localization (AC /AL), with imaging beginning at approximately 60 minutes after radiotrac er injection. COMPARISON: ??CT 08/12/2021 INDICATION: ??Endometrial mass. Initial treatment strategy. The patient reports no recent vaccinatio ns. FINDINGS: ?? Intense FDG activity within uterine mass , SUV max 14. This pattern anatomically delineated on recent CT. Amorphous FDG activity extending along s oft tissue stranding posterior to the left adnexa and along the vaginal fornic es. Minimal uptake not above blood pool in a few mildly enlarged left iliac mickey n lymph nodes. Moderate uptake within a right iliac chain lymph node on slice 24 4, SUV max 3.8. Previously described enlarged left peria ortic lymph node is intensely FDG avid, SUV max 14, suspicious for metastasis. No evident osseous or parenchymal metast ases. Noncontrast CT additionally demonstrates trace pericardial effusion, mild calcified atherosclerotic plaque. Procedure Note Lionel Back M.D., Ph.D. - 022 EXAM: PET CT SKULL TO THIGH FDG Serum glucose at time of F-18 FDG inject ion was 86 mg/dL. Patient followed standard dietary/fasting requirements fo r this exam. RADIOPHARMACEUTICAL/MEDS: Route: intravenous fludeoxyglucose F 18 injection CUSTODIAL (FDG F-18),9.9 millicurie TECHNIQUE: F-18 FDG PET/CT scan was perf ormed from the orbits through the thighs with low dose, non-contrast, free -breathing CT images for attenuation correction and anatomic localization (AC /AL), with imaging beginning at approximately 60 minutes after radiotrac er injection. COMPARISON: CT 08/12/2021 INDICATION: Endometrial mass. Initial tr eatment strategy. The patient reports no recent vaccinatio ns. FINDINGS: Intense FDG activity within uterine mass , SUV max 14. This pattern anatomically delineated on recent CT. Amorphous FDG activity extending along s oft tissue stranding posterior to the left adnexa and along the vaginal fornic es. Minimal uptake not above blood pool in a few mildly enlarged left iliac mickey n lymph nodes. Moderate uptake within a right iliac chain lymph node on slice 24 4, SUV max 3.8. Previously described enlarged left peria ortic lymph node is intensely FDG avid, SUV max 14, suspicious for metastasis. No evident osseous or parenchymal metast ases. Noncontrast CT additionally demonstrates trace pericardial effusion, mild calcified atherosclerotic plaque. IMPRESSION: 1. Intense FDG activity within suspected endometrial carcinoma, with right iliac, left periaortic tea metastases and suspected infiltration into adjacent fat posteriorly and along the left adnex a. 2. Indeterminate mild activity in a few mildly enlarged left iliac lymph nodes. Jessy MCCLENDON [place] PROCEDURES documented in this encounter Visit Diagnoses Diagnosis Mass Uterus Lymphadenopathy documented in this encounter Administered Medications Inactive Administered Medications - up to 3 most recent administrations Medication Order MAR Action Action Date Dose Rate Site fludeoxyglucose F 18 Given 08/29/2021 11:07 AM 9.9 millicuries injection CUSTODIAL (FDG F-18) CRAFT ARTIST 9.9 millicurie, intravenous, Once, On Betty 08/29/21 at 1115, For 1 dose documented in this encounter
--- OUTSIDE RECORDS SUMMARY | 2022-05-01 16:17 | XMS_ITS | Encounter Summary ---
:1950 Author Organization [facility] Address [address] [place] [address] Care Team Providers Name Role Phone Unavailable Primary Care Provider Unavailable Reason for Referral MRI/CAT/PET Scan (Routine) - Closed Specialty Diagnoses / Procedures Referred By Contact Refer red To Contact Radiology Diagnoses Malignant Neoplasm Of Endometrium (HCC) Jessy Pineda M.D. [facility] Procedures MR Gynecologic Pelvis without and with IV Contrast MR Pelvis without and with IV Contrast [address] [place] [phone] Referral ID Status Reason Start Date Expiration Date Visits Requ ested Visits Authorized [id number] Closed 08/30/2021 08/30/2022 1 1 SOLUTIONS ARCHITECT Reason for Visit MRI/CAT/PET Scan (Routine) - Closed Specialty Diagnoses / Procedures Referred By Contact Refer red To Contact Radiology Diagnoses Malignant Neoplasm Of Endometrium (HCC) Jessy Pineda M.D. [facility] Procedures MR Gynecologic Pelvis without and with IV Contrast MR Pelvis without and with IV Contrast [address] [place] [phone] Referral ID Status Reason Start Date Expiration Date Visits Requ ested Visits Authorized [id number] Closed 08/30/2021 08/30/2022 1 1 Encounter Details Date Type Department Care Team Description 09/04/2021 Hospital Encounter Department of Jessy Pineda Neoplasm Radiology, Vince Crenshaw M.D. Of Endometrium (HCC) [facility], in [address] [place] [phone] 200 [facility] [phone] [place], [place] (Work) [phone] Social History Tobacco Use Types Packs/Day Years [...] More than 4 times per year 03/17/2022 sabianism services? Do you belong to any clubs [...] at Date Recorded Female 07/20/2021 9:20 PM IT SOLUTIONS ARCHITECT documented as of this encounter Medications at [...] daily. fluticasone propionate Administer 2 sprays 0 /03/2021 (FLONASE) 50 into nostril(s) 2 (two) mcg/actuation [...] every morning. documented as of this encounter Nursing Notes Loretta Chan R.N. - 09/04/2021 2:45 PM CST Gel Administration Screening: * If also ordered with Glucagon, perform that screening as well. If not ordered with Glucagon, verify with Technologist if this may have been an oversight and Glucagon is wanted. Does patient have an allergy or sensitivity to Lidocaine or other amide-type (Prilocaine, Mepivacaine, Bupivacaine, Levobupivacaine, Articaine, Ropivacaine) local anesthetics? YES If no... continue SOLUTIONS ARCHITECT documented in this encounter Miscellaneous Notes Result Encounter Note - Nannette Cox M.D. - 09/09/2021 2:24 PM IT SOLUTIONS ARCHITECT Called patient to discuss Pelvic MRI report. We discussed at this time we will continue with plannedrobotic surgery on October 01. Patient still need Pulm evaluation prior to surgery. All questions answered. Patient appreciated the call. SOLUTIONS ARCHITECT documented in this encounter Plan of Treatment Upcoming Encounters Date Type Specialty Care Team Description 05/02/2022 Appointment Radiation Oncology Dot Lopez M.D. [address] [place] [phone] 05/05/2022 Appointment Radiation Oncology Judy Mccall M.D. [address] [place] [phone] 05/06/2022 Appointment Radiation Oncology Judy Mccall M.D. [address] [place] [phone] 05/06/2022 Appointment Radiation Oncology Judy Mccall M.D. [address] [place] [phone] 05/07/2022 Appointment Radiation Oncology Judy Mccall M.D. [address] [place] [phone] 05/08/2022 Appointment Radiation Oncology Judy Mccall M.D. [address] [place] [phone] 05/22/2022 Clinical Communication Admitting/Central Scheduling 05/26/2022 Appointment Radiology Merlyn Rose APRN, C.N.P., M.S.N. [address] [place] [phone] 05/27/2022 Office Visit Oncology Merlyn Rose APRN, C.N.P., M.S.N. [address] [place] [phone] documented as of this encounter Procedures Procedure Name Priority Date/Time Associated Comments Diagnosis MR GYNECOLOGIC RAD - Routine 09/04/2021 3:22 Malignant Neoplasm Res ults for this PELVIS WITHOUT AND (most inpatients PM IT SOLUTIONS ARCHITECT Of Endometrium pro cedure are in WITH IV CONTRAST and all (HCC) the results outpatients) section. documented in this encounter Results MR Gynecologic Pelvis without and with IV Contrast (09/04/2021 3:22 PM IT SOLUTIONS ARCHITECT) Anatomical Region Laterality Modality Pelvis, Abdominal RST LOS, Abdominal ARZ LOS, Abdominal N/A Magnetic Resonance FLA LOS, Musculoskeletal ARZ LOS Specimen (Source) Anatomical Collection Method Collection Time Re ceived Time Location / / Volume Laterality 09/04/2021 2:54 PM IT SOLUTIONS ARCHITECT Impressions 09/04/2021 3:52 PM IT SOLUTIONS ARCHITECT 1. Large 7 cm endometrial mass. Given its imaging findings and PET avidity this is most suggestive of an endometrial car cinoma. There is involvement of the cervix however no vaginal extension is i dentified. Questionable extension of the tumor into the left adnexa. Enlarged right iliac lymph node and as w ell as partially imaged left retroperitoneal para aortic lymph nodes are suspicious for tea metastases. Stage IIIC2 disease. Narrative 09/04/2021 3:52 PM IT SOLUTIONS ARCHITECT EXAM: ??MR GYNECOLOGIC PELVIS WITHOUT AND WITH IV CONTRAST COMPARISON: ??CT 08/12/2021, PET 2 FINDINGS: ?? The uterus measures 8 x 7.1 x 5.7 cm. ?? There is complete obliteration of the normal endometrium and junctional zone. Most of the uterus is filled with a T2 hypointense mass that measures approxima tely 6.9 x 7.1 x 4.9 cm. ??This mass restricts diffusion and demonstrates hig her T1 signal intensity in the anterior aspect of the tumor and ??low level enha ncement (series 12, image 148) ??. The mass involves the lower uterine segment and cervix but spares the vagina. ??A low T2 capsule is noted around the tumor and there is preservation of the fat plane between the rectum and uterus as well as the urinary bladder. This mass is less well defined compared to a normal uterin e fibroid. The vagina is distended with gel. It is difficult to appreciate whether th ere is involvement of tumor into the left adnexa. There is a 2 cm area of low T2 signal in the left adnexa that enhances and could represent tumor (seri es 6, image 13). Artifact on diffusion imaging limits evaluation in this area. 9 mm right iliac lymph node at the exter nal/internal iliac bifurcation (series 6, image 13). Incompletely imaged enlarged 1.3 cm left para aortic lymph node which demonstrated avidity on recent PET (Seri es 13, image 1). No suspicious bony lesion identified. Procedure Note Linda Shaffer M.D. - 09/04/2021For matting of this note might be different from the original. EXAM: MR GYNECOLOGIC PELVIS WITHOUT AND WITH IV CONTRAST COMPARISON: CT 08/12/2021, PET 08/29/2021 FINDINGS: The uterus measures 8 x 7.1 x 5.7 cm. Th ere is complete obliteration of the normal endometrium and junctional zone. Most of the uterus is filled with a T2 hypointense mass that measures approxima tely 6.9 x 7.1 x 4.9 cm. This mass restricts diffusion and demonstrates hig her T1 signal intensity in the anterior aspect of the tumor and low level enhanc ement (series 12, image 148) . The mass involves the lower uterine segment and cervix but spares the vagina. A low T2 capsule is noted around the tumor and there is preservation of the fat plane between the rectum and uterus as well as the urinary bladder. This mass is less well defined compared to a normal uterin e fibroid. The vagina is distended with gel. It is difficult to appreciate whether th ere is involvement of tumor into the left adnexa. There is a 2 cm area of low T2 signal in the left adnexa that enhances and could represent tumor (seri es 6, image 13). Artifact on diffusion imaging limits evaluation in this area. 9 mm right iliac lymph node at the exter nal/internal iliac bifurcation (series 6, image 13). Incompletely imaged enlarged 1.3 cm left para aortic lymph node which demonstrated avidity on recent PET (Seri es 13, image 1). No suspicious bony lesion identified. IMPRESSION: 1. Large 7 cm endometrial mass. Given it s imaging findings and PET avidity this is most suggestive of an endometrial car cinoma. There is involvement of the cervix however no vaginal extension is i dentified. Questionable extension of the tumor into the left adnexa. Enlarged right iliac lymph node and as w ell as partially imaged left retroperitoneal para aortic lymph nodes are suspicious for tea metastases. Stage IIIC2 disease. Jessy MCCLENDON MRI PROCEDURES documented in this encounter Visit Diagnoses Diagnosis Malignant Neoplasm Of Endometrium (HCC) documented in this encounter Administered Medications Inactive Administered Medications - up to 3 most recent administrations Medication Order MAR Action Action Date Dose Rate Site gadobutrol injection 0.01-30 mL Given 09/04/2021 3:13 PM IT SOLUTIONS ARCHITECT 11 mL (GADAVIST) 0.01-30 mL, intravenous, Once in imaging, contrast, Starting on Thu09/04/21 at 1430, For 1 dose, Imaging Protocol Orders, Dose per Radiant Medication Guidelines Intrathecal doses greater than 0.25 mL not recommended. glucagon injection 0.5-1 mg Given 09/04/2021 2:30 PM IT SOLUTIONS ARCHITECT 1 mg Right Upper Arm (GlucaGen) (Back) 0.5-1 mg, subcutaneous, Once, On Thu09/04/21 at 1445, For 1 dose, Imaging Protocol Orders sodium chloride (PF) 0.9 % injection 1-1 00 mL Given 09/04/2021 3:13 PM IT SOLUTIONS ARCHITECT 40 mL 1-100 mL, intravenous, Once, On Thu09/04/21 at 1445, For 1 dose, Imaging Protocol Orders ultrasound gel topical gel 60-180 mL Given 09/04/2021 2:30 PM IT SOLUTIONS ARCHITECT 60 mL 60-180 mL, vaginal, Once, On Thu09/04/21 at 1445, For 1 dose, Imaging Protocol Orders, Dose per Radiant Medication Guidelines documented in this encounter
--- OUTSIDE RECORDS SUMMARY | 2022-05-01 16:17 | XMS_ITS | Encounter Summary ---
:1950 Author Organization [facility] Address [address] [place] [address] Care Team Providers Name Role Phone Elsewhere, Pcp Primary Care Provider Unavailable Reason for Visit Outpatient (Routine) - Closed Specialty Diagnoses / Procedures Referred By Contact Refer red To Contact Obstetrics and Diagnoses Preprocedural Lab Exam Jessy Pineda [facility]ne[facility] M.D. [address] [place] [phone] Referral ID Status Reason Start Date Expiration Date Visits Requ ested Visits Authorized [id number] Closed 09/09/2021 09/09/2022 1 1 Encounter Details Date Type Department Care Team Description 09/30/2021 Office Visit Department of Jessy Pineda Malignant Neoplasm Of Uterus (HCC) (Primary Dx); Obstetrics and E, M.D. Lymphadenopathy Retroperitoneal; Gynecology in [address] [place] [address] Obesity Body Mass Index 30-39.9 Adult; [place], [place] Preprocedural Lab Exam [address] [place] [phone] [place], [place] [phone] (Work) [phone] Social History Tobacco Use Types Packs/Day Years [...] Date Recorded Female 07/20/2021 9:20 PM CLINICAL DATA MANAGEMENT MANAGER documented as of this encounter Progress Notes Jessy Pineda M.D. - 09/30/2021 11:30 AM CST SUBJECTIVE CHIEF COMPLAINT / REASON FOR VISIT Follow-up HISTORY OF PRESENT ILLNESS Nelda Pavon is a 70 y.o. 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 Please see my previous visit note for further details. Since our last visit, the patient had a PET showing the known lymphadenopathy, as well as an MRI pelvis confirming this. The following portions of the patient's history were reviewed and updated as appropriate: allergies,current medications, family history, medical history, social history and surgical history. REVIEW OF SYSTEMS All systems reviewed and negative except as noted in HPI. OBJECTIVE There were no vitals taken for this visit. PHYSICAL EXAM General: Well-appearing, no apparent distress, alert and oriented. Eyes: Sclerae nonicteric. ENT: Moist mucous membranes. Lungs: No respiratory distress. No accessory muscle use. Abdomen: Nondistended, soft, nontender. No masses. Extremities: Warm. No edema. No calf tenderness. Pelvis: External genitalia within normal limits. Speculum exam reveals normal vagina and cervix. No evidence of vaginal disease. Bimanual exam confirms. LABORATORY DATA Lab data reviewed. RADIOLOGICAL DATA Radiology data reviewed. ASSESSMENT / PLAN #1 Malignant Neoplasm Of Uterus (HCC) #2 Lymphadenopathy Retroperitoneal #3 Obesity Body Mass Index 30-39.9 Adult #4 Preprocedural Lab Exam We will plan to proceed tomorrow with a robotic hysterectomy, bilateral salpingo-oophorectomy, pelvic and periaortic lymphadenectomy, especially of the enlarged lymph nodes. All questions were answered. PATIENT EDUCATION Ready to learn, no apparent learning barriers were identified; learning preferences include listening. Explained diagnosis and treatment plan; patient expressed understanding of the content. INFORMED CONSENT Discussed the risks, benefits, and alternatives of the procedure and of possible blood transfusion. Discussed the necessity of other members of the healthcare team participating in the procedure. All questions answered and consent given. ADMINISTRATIVE BILLING I personally spent over half of a total 30 minutes in counseling and discussion with the patient andcoordination of care as described above. ICAL DATA MANAGEMENT MANAGER documented in this encounter Miscellaneous Notes Addendum Note - Bailee Mix RYiN. - 09/30/2021 11:30 AM CLINICAL DATA MANAGEMENT MANAGER Addended by: BAILEE MIX on: 10/14/2021 08:49 AM Modules accepted: Orders documented in this encounter Plan of Treatment Upcoming Encounters Date Type Specialty Care Team Description 05/02/2022 Appointment Radiation Oncology Dot Lopez M.D. [address] [place] [phone] 05/05/2022 Appointment Radiation Oncology Judy Mccall M.D. [address] [place] [phone] 05/06/2022 Appointment Radiation Oncology Judy Mccall M.D. [address] [place] [phone] 05/06/2022 Appointment Radiation Oncology Judy Mccall M.D. [address] [place] [phone] 05/07/2022 Appointment Radiation Oncology Judy Mccall M.D. [address] [place] [phone] 05/08/2022 Appointment Radiation Oncology Judy Mccall M.D. [address] [place] [phone] 05/22/2022 Clinical Communication Admitting/Central Scheduling 05/26/2022 Appointment Radiology Merlyn Rose APRN, C.NAye., M.S.N. [address] [place] [phone] 05/27/2022 Office Visit Oncology Merlyn Rose APRN, C.NLeopoldo, M.S.N. [address] [place] [phone] documented as of this encounter Visit Diagnoses Diagnosis Malignant Neoplasm Of Uterus (HCC) - Anais dieter Lymphadenopathy Retroperitoneal Obesity Body Mass Index 30-39.9 Adult Preprocedural Lab Exam documented in this encounter Additional Health Concerns Infection Onset Date Last Indicated Resolved Time COVID19 Pending 09/30/2021 09/30/2021 09/30/2021 4:20 PM CLINICAL DATA MANAGEMENT MANAGER documented as of this encounter Care Teams Chocolate Finisher Operator Relationship Specialty Start Date End Date Elsewhere, Pcp PCP - General Internal Medicine 10/01/21 documented as of this encounter
--- OUTSIDE RECORDS SUMMARY | 2022-05-01 16:17 | XMS_ITS | Encounter Summary ---
:1950 Author Organization [facility] Address [address] [place] [address] Care Team Providers Name Role Phone Unavailable Primary Care Provider Unavailable Reason for Referral MRI/CAT/PET Scan (Routine) - Closed Specialty Diagnoses / Procedures Referred By Contact Refer red To Contact Radiology Diagnoses Malignant Neoplasm Of Endometrium (HCC) Jessy Pineda M.D. [facility] Procedures MR Gynecologic Pelvis without and with IV Contrast MR Pelvis without and with IV Contrast 200 [place], [place] [phone] Referral ID Status Reason Start Date Expiration Date Visits Requ ested Visits Authorized [id number] Closed 08/30/2021 08/30/2022 1 1 CLERK Encounter Details Date Type Department Care Team Description 08/30/2021 Orders Only Department of Jessy Pineda Maligna nt Neoplasm Of Obstetrics and M.DYi Endometrium (HCC) Gynecology in 200 [facility] (Primary Dx) [place], [place] [address] [place] [phone] [place], [place] [phone] (Wo rk) [phone] Social History Tobacco Use Types Packs/Day Years [...] at Date Recorded Female 07/20/2021 9:20 PM BELL CLERK documented as of this encounter Plan of Treatment Upcoming Encounters Date Type Specialty Care Team Description 05/02/2022 Appointment Radiation Oncology Dot Lopez M.D. 200 [place] [phone] 05/05/2022 Appointment Radiation Oncology Judy Mccall M.D. 200 [place] [phone] 05/06/2022 Appointment Radiation Oncology Judy Mccall M.D. 200 [place] [phone] 05/06/2022 Appointment Radiation Oncology Judy Mccall M.D. [address] [place] [phone] 05/07/2022 Appointment Radiation Oncology Judy Mccall M.D. [address] [place] [phone] 05/08/2022 Appointment Radiation Oncology Judy Mccall M.D. [address] [place] [phone] 05/22/2022 Clinical Communication Admitting/Central Scheduling 05/26/2022 Appointment Radiology Merlyn Rose APRN, C.N.P., M.S.N. [address] [place] [phone] 05/27/2022 Office Visit Oncology Merlyn Rose APRN, C.N.P., M.S.N. [address] [place] [phone] documented as of this encounter Results MR Gynecologic Pelvis without and with IV Contrast (09/04/2021 3:22 PM BELL CLERK) Anatomical Region Laterality Modality Pelvis, Abdominal RST LOS, Abdominal ARZ LOS, Abdominal N/A Magnetic Resonance FLA LOS, Musculoskeletal ARZ LOS Specimen (Source) Anatomical Collection Method Collection Time Re ceived Time Location / / Volume Laterality 09/04/2021 2:54 PM BELL CLERK Impressions 09/04/2021 3:52 PM BELL CLERK 1. Large 7 cm endometrial mass. Given [...] Stage IIIC2 disease. Narrative 09/04/2021 3:52 PM BELL CLERK EXAM: ??MR GYNECOLOGIC PELVIS WITHOUT AND WITH [...] Diagnoses Diagnosis Malignant Neoplasm Of Endometrium (HCC) - Primary Malignant Neoplasm Of Endometrium (HCC) documented in this encounter
--- OUTSIDE RECORDS SUMMARY | 2022-05-01 16:17 | XMS_ITS | Encounter Summary ---
:1950 Author Organization [facility] Address [address] [place] [address] Care Team Providers Name Role Phone Unavailable Primary Care Provider Unavailable Reason for Referral Outpatient (Routine) - Closed Specialty Diagnoses / Procedures Referred By Contact Refer red To Contact Diagnoses Preprocedural Lab Exam Jessy Pineda M.D. [facility] Procedures Penicillin Skin Test 200 [place] [phone] Referral ID Status Reason Start Date Expiration Date Visits Requ ested Visits Authorized [id number] Closed 09/09/2021 09/09/2022 1 1 ID INTERN Outpatient (Routine) - Closed Specialty Diagnoses / Procedures Referred By Contact Refer red To Contact Allergy and Immunology Diagnoses Preprocedural Lab Exam Jessy Pineda [place] [facility] M.D. 200 [place] [phone] Referral ID Status Reason Start Date Expiration Date Visits Requ ested Visits Authorized [id number] Closed 09/09/2021 09/09/2022 1 1 ID INTERN Outpatient (Routine) - Closed Specialty Diagnoses / Procedures Referred By Contact Refer red To Contact Anesthesiology Diagnoses Preprocedural Lab Exam Jessy Pineda M.D. [facility] [address] [place] [phone] Referral ID Status Reason Start Date Expiration Date Visits Requ ested Visits Authorized [id number] Closed 09/09/2021 09/09/2022 1 1 ID INTERN Outpatient (Routine) - Closed Specialty Diagnoses / Procedures Referred By Contact Refer red To Contact Diagnoses Preprocedural Lab Exam Jessy Pineda M.D. [facility] Procedures ECG 12 Lead [address] [place] [phone] Referral ID Status Reason Start Date Expiration Date Visits Requ ested Visits Authorized [id number] Closed 09/09/2021 09/09/2022 1 1 ID INTERN Outpatient (Routine) - Closed Specialty Diagnoses / Procedures Referred By Contact Refer red To Contact Obstetrics and Diagnoses Preprocedural Lab Exam Jessy Pineda [facility] Gynecology [place] [address] [place] [phone] Referral ID Status Reason Start Date Expiration Date Visits Requ ested Visits Authorized [id number] Closed 09/09/2021 09/09/2022 1 1 Scheduling Instructions Return to Dr. Pineda for preop discussio n ID INTERN Encounter Details Date Type Department Care Team Description 09/09/2021 Orders Only Department of Bailee Rocha Preprocedur al Lab Exam (Primary Dx); Obstetrics and R.N. Contact With And (Suspected) Exposure To COVID-19 Gynecology in [address] [place], [place] [address] [place] [phone] [place], [place] [phone] (Work) [phone] Social History Tobacco Use Types Packs/Day Years [...] More than 4 times per year 03/17/2022 [employer]? Do you belong to any clubs [...] at Date Recorded Female 07/20/2021 9:20 PM UNPAID INTERN documented as of this encounter Plan of Treatment Upcoming Encounters Date Type Specialty Care Team Description 05/02/2022 Appointment Radiation Oncology Dot Lopez M.D. 200 [place] [phone] 05/05/2022 Appointment Radiation Oncology Judy Mccall M.D. [address] [place] [phone] 05/06/2022 Appointment Radiation Oncology Judy Mccall M.D. [address] [place] [phone] 05/06/2022 Appointment Radiation Oncology Judy Mccall M.D. [address] [place] [phone] 05/07/2022 Appointment Radiation Oncology Judy Mccall M.D. [address] [place] [phone] 05/08/2022 Appointment Radiation Oncology Judy Mccall M.D. [address] [place] [phone] 05/22/2022 Clinical Communication Admitting/Central Scheduling 05/26/2022 Appointment Radiology Merlyn Rose APRN, C.N.Abdirashid, M.S.N. [address] [place] [phone] 05/27/2022 Office Visit Oncology Merlyn Rose APRN, C.N.P., M.S.N. [address] [place] [phone] Scheduled Orders Name Type Priority Associated Diagnoses Order S chedule Penicillin Skin Test Procedures Routine Preprocedural Lab Ex am Expected: 09/09/2021 (Approximate), Expires: 2022 Scheduled Referrals Name Type Priority Associated Diagnoses Order S chedule Obstetrics and Outpatient Routine Preprocedural Lab Expected : Gynecology - Referral Exam 09/30/2021, Gynecologic oncology Expires : surgery consult 12/07/2022 (clinic) Preoperative Outpatient Routine Preprocedural Lab Expected: Evaluation FELY Referral Exam 09/30/2021 consult (clinic) (Approximat e), Expires: 12/07/2022 Allergy and Outpatient Routine Preprocedural Lab Expected: Immunology - Referral Exam 09/09/2021 Penicillin allergy (Approxim ate), consult (clinic) Expires: 12/07/2022 documented as of this encounter Results SARS Coronavirus 2, Molecular Detection, PCR, Varies Asymptomatic (09/30/2021 12:18 PM UNPAID INTERN) Patholo gist Method Time Signature COVID-19, Swab, 09/30/2021 DTL PCR, Source Nasopharynx 4:20 PM UNPAID INTERN COVID-19, Undetected Undetected 09/30/2021 DTL PCR, Result 4:20 PM UNPAID INTERN Comment: SARS-CoV-2 RNA absent. This result does not rule out COVID-19 in the patient, as the sensitivity of the test depends o n the timing of the specimen collection and quality of the specimen. Result should be correlated with patient's history and clinical presentat ion. ----ADDITIONAL INFORMATION---- This RT-PCR test using the [employer] SARS-Co V-2 Assay ( [employer]) performed on the [employer] Two Module System has received Emergency Use Authorization (EUA) by the U.S. Food and Drug Administration, and is modified from the juice scaleman's instructions with a bridging study. Performance characteristics were verifie d by [facility] in a manner consistent with CLIA requirements. Visit the CDC website: https://www.cdc.g ov/coronavirus/ for the most recent guidelines on Cruz virus testing. Fact Sheet for Healthcare Providers: https://www.fda.gov/media/484282/downloa d Fact Sheet for Patients: https://www.fda.gov/media/989398/downloa d Specimen Anatomical Collection Method Collection Time Receive d Time (Source) Location / / Volume Laterality Varies 09/30/2021 12:18 09/30/2021 (Nasopharynx) PM UNPAID INTERN 12:49 PM UNPAID INTERN Jessy Pineda M.D. LAB MICROBIOLOGY - GENERAL O RDERABLES Performing Organization Address City/State/ZIP Code Phon e Number [facility] - [address] [place], [place] [address] [facility] [place] [address] [facility] 200 [facility] ECG 12 Lead (09/16/2021 12:56 PM UNPAID INTERN) P athologist Signature Ventricular Rate 63 BPM MUSE ECG/Min OR Interval 172 ms MUSE QRSD Interval 86 ms MUSE QT Interval 432 ms MUSE QTC Interval 442 ms MUSE P Draper 34 degrees MUSE R Draper -32 degrees MUSE T Wave Draper 26 degrees MUSE Specimen Anatomical Collection Method Collection Time Receive d Time (Source) Location / / Volume Laterality 09/16/2021 12:56 09/16/2021 1:02 PM UNPAID INTERN PM UNPAID INTERN Impressions MUSE - 09/16/2021 1:02 PM UNPAID INTERN Normal sinus rhythm Left axis deviation Low anterior forces Low voltage QRS Nonspecific T wave abnormality No previous ECGs available Reviewed by DION Aggarwal Narrative This result has an attachment that is no t available. Procedure Note Markel Gomez M.D. - 09/16/2021Formatt ing of this note might be different from the original. IMPRESSION: Normal sinus rhythm Left axis deviation Low anterior forces Low voltage QRS Nonspecific T wave abnormality No previous ECGs available Reviewed by DION Aggarwal Jessy Pineda M.D. ECG ORDERABLES Performing Organization Address City/State/ZIP Code Phon e Number MUSE MUSE NA documented in this encounter Visit Diagnoses Diagnosis Preprocedural Lab Exam - Primary Contact With And (Suspected) Exposure To COVID-19 documented in this encounter
--- OUTSIDE RECORDS SUMMARY | 2022-05-01 16:17 | XMS_ITS | Encounter Summary ---
:1950 Author Organization [facility] Address [address] [place] [address] Care Team Providers Name Role Phone Unavailable Primary Care Provider Unavailable Reason for Referral Specialty Diagnoses / Procedures Referred By Contact Refer red To Contact Darrius Rodriguez M.D., M.P.H. [facility] [address] [place], [place] [address] Referral ID Status Reason Start Date Expiration Date Visits Requ ested Visits Authorized K AND WATCH ASSEMBLER Outpatient (Routine) - Closed Specialty Diagnoses / Procedures Referred By Contact Refer red To Contact Pulmonary Medicine Diagnoses Chronic Cough Jessy Pineda [place] M.D. [address] [place] [address] Referral ID Status Reason Start Date Expiration Date Visits Requ ested Visits Authorized [id number] Closed 08/29/2021 08/29/2022 1 1 K AND WATCH ASSEMBLER Reason for Visit Outpatient (Routine) - Closed Specialty Diagnoses / Procedures Referred By Contact Refer darryl To Contact Pulmonary Medicine Diagnoses Chronic Cough Jessy Pineda [place] [address] Referral ID Status Reason Start Date Expiration Date Visits Requ ested Visits Authorized [id number] Closed 08/29/2021 08/29/2022 1 1 Encounter Details Date Type Department Care Team Description 09/16/2021 Hospital Encounter Division of Darrius Rodriguez Rhiniti s Chronic (Primary Dx); Pulmonary Medicine Brady, M.P.H. 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 Do you belong to any clubs [...] at Date Recorded Female 07/20/2021 9:20 PM CLOCK AND WATCH ASSEMBLER documented as of this encounter Last Filed Vital Signs Vital Sign Reading Time Taken Comments Blood Pressure 127/81 09/16/2021 10:53 AM CLOCK AND WATCH ASSEMBLER Pulse 77 09/16/2021 10:53 AM CLOCK AND WATCH ASSEMBLER Temperature 36.4 ??C (97.6 ??F) 09/16/2021 10:53 AM CLOCK AND WATCH ASSEMBLER Respiratory Rate - - Oxygen Saturation 95% 09/16/2021 10:53 AM CLOCK AND WATCH ASSEMBLER Inhaled Oxygen Concentration - - Weight 104 kg (230 lb 2.6 oz) 09/16/2021 10:53 AM CLOCK AND WATCH ASSEMBLER Height - - Body Mass Index 38.82 06/21/2021 9:54 AM CLOCK AND WATCH ASSEMBLER documented in this encounter Medications at Time [...] (ELIQUIS) 5 mg Take 2 tablets (10 400 tablet 0 03/0 01/202210/07/2021 tablet mg total) by mouth 2 (two) times a day for 10 days, THEN 1 tablet (5 mg total) 2 (two) times a day. apixaban (ELIQUIS) 5 mg Take 2 tablets (10 392 tablet 0 03/0 01/202204/15/2022 tablet mg total) by mouth 2 (two) times a day for 8 days, THEN 1 tablet (5 mg total) 2 (two) times a day. NaCl 0.9 % irrigation 0 09/16/202108/2021 oxyCODONE (ROXICODONE) 5 Take 1 tablet (5 mg 6 tablet 0 12/10/2021 mg immediate release total) by mouth tabletIndications: Acute every 4 (four) hours Pain as needed for moderate pain or score 4-6 of 10 or severe pain or score 7-10 of 10 (Administer if pain is unrelieved by acetaminophen.) Indication: Acute Pain. documented as of this encounter Consult Notes Keith Cruz M.D. - 09/16/2021 11:00 AM CST Images from the original note were not included. SUBJECTIVE CHIEF COMPLAINT / REASON FOR VISIT Nelda Pavon is a 70 y.o. female presenting in referral from Jessy Pineda M.D. for consultation in the evaluation of chronic cough with plan for upcoming surgery and concern for cough interfering with fascial healing. HISTORY OF PRESENT ILLNESS Ms Pavon is a 70 yo with past medical history notable for recent evaluation of potential endometrialcarcinoma with associated adenopathy who presents for evaluation of chronic cough. She reports greater than 10 years of cough. She states that she has episodes that are short induration but severe cough that often leaves her breathless. She also awakens at night due to cough. She canidentify cold weather as well as laughing as triggers. She does have frequent throat clearing and reports persistent and notable post-nasal drainage, sometimes to the point it is difficult to swallow. Some of these coughing fits she can relate to mucus accumulation. She does have a harder time breathing through her left nare after prior septoplasty. She did report some improvement with flonase use once angling it lateally. She also recently purchased a navage and used it once, reporting significant sinus drainage that night and with sneezing the following morning that was yellow-unique in color. She also states that the night she used it she had notfurther coughing. She also reports significant seasonal allergies, such so that she largely stays indoors. She states she was diagnosed with asthma after an ED visit for cough and URI symptoms, but states that she rarely uses her albuterol for SOA/wheezing and that it has not affected her cough. The following portions of the patient's history were reviewed and updated as appropriate: allergies,current medications, family history, medical history, social history and surgical history. REVIEW OF SYSTEMS Constitutional: Negative for fever, night sweats and weight loss of more than 10 pounds. ENT: Positive for difficulty hearing and persistent hoarse voice. Respiratory: Positive for coughing up mucus (phlegm). Gastrointestinal: Positive for abdominal (belly) pain or cramping. Musculoskeletal: Positive for arthralgias and pain or stiffness in the joints. Neurological: Negative for loss of balance or tendency to fall easily and weakness in arms or legs. The following systems were negative: Constitutional, Skin, Eyes, CV, Hematologic, Neuro, Psych OBJECTIVE PHYSICAL EXAM: Gen: no acute distress while seated in clinic, well-groomed and conversant HEENT: PERRL, nares patient, moist mucous membranes, some erythema of nasal turbinates appreciated, crowded oropharynx limits examination of posterior pharynx. Card: Regular rate, regular rhythm, no murmurs appreciated Pulm: No increased work of breathing, on room air, no wheezing, rhonchi, or crackles appreciated. GI: No abd distension, no tenderness, BS present Extr: No notable cyanosis, no edema in lower extremities JULISSA - 18 - no recent inhaled or oral steroids. ASSESSMENT / PLAN 1) Chronic cough - symptomatology and partial response after single sinus rinse and with appropriate flonase rinse seems most consistent with cough related to upper airway cough syndrome - will prescribe nasal triple spray - recommend at least daily (if not twice) sinus rinse followed by triple spray - will arrange cough nurse education for how to perform this as she reported difficulty with using nasal lavage at home - contact information provided and asked her to call if no significant response over next 2 weeks. Case discussed with and pt seen by Dr Rodriguez. Greater than 40 minutes spent on encounter with > 50% of that time being spent in face to face evaluation and counseling. Wm. Ken Cruz MD Fellow, Pulmonary and Critical Care Medicine #[id number] K AND WATCH ASSEMBLER Associated attestation - Darrius Rodriguez M.D., M.P.H. - 09/17/2021 9:57 PM CLOCK AND WATCH ASSEMBLER SUPERVISORY NOTE: This is a supervisory note for Dr. Cruz. I have reviewed the patient's clinical history and personally reviewed the available imaging studies, pulmonary function studies and lab work and agree with the overall assessment and plan as documented by Dr. Cruz. BRIEFLY: This is a 70-year-old female who presents for evaluation of a chronic cough that has been going on for more than 10 years. She appears to have had previous nasal septoplasty as well as has had a partial response to sinus rinse as well as Flonase use. IMPRESSION/PLAN: 1. Chronic cough-10 year history 2. Rhinitis with postnasal drainage-likely explanation for problem 1 We have prescribed the Sigel triple combination nose spray along with twice daily sinus rinse use. Rest per Dr. Cruz's note. documented in this encounter Plan of Treatment Upcoming Encounters Date Type Specialty Care Team Description 05/02/2022 Appointment Radiation Oncology Dot Lopez M.D. [address] [place] [phone] 05/05/2022 Appointment Radiation Oncology Judy Mccall M.D. [address] [place] [phone] 05/06/2022 Appointment Radiation Oncology Judy Mccall M.D. [address] [place] [phone] 05/06/2022 Appointment Radiation Oncology Judy Mccall M.D. [address] [place] [phone] 05/07/2022 Appointment Radiation Oncology Judy Mccall M.D. [address] [place] [phone] 05/08/2022 Appointment Radiation Oncology Judy Mccall M.D. [address] [place] [phone] 05/22/2022 Clinical Communication Admitting/Central Scheduling 05/26/2022 Appointment Radiology Merlyn Rose APRN, C.N.P., M.S.N. [address] [place] [phone] 05/27/2022 Office Visit Oncology KlampeMerlyn APRN C.N.P., M.S.N. [address] [place] [address] Scheduled Referrals Name Type Priority Associated Order Schedule Diagnoses Pulmonary Medicine Outpatient Referral Routine Chronic Cough O nce for 1 - Cough consult Occurrences starting (clinic) 09/16/2021 unti l 09/16/2021 Pulmonary - Asthma Outpatient Referral Routine Rhinitis Chroni c Expected: 09/16/2021 education (clinic) (Approxim ate), Expires: 2022 documented as of this encounter Visit Diagnoses Diagnosis Rhinitis Chronic - Primary Chronic Cough documented in this encounter
--- OUTSIDE RECORDS SUMMARY | 2022-05-01 16:17 | XMS_ITS | Encounter Summary ---
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 [address] [place] [phone] 05/05/2022 Appointment Radiation Oncology Judy Mccall M.D. [address] [place] [phone] 05/06/2022 Appointment Radiation Oncology Judy Mccall M.D. [address] [place] [phone] 05/06/2022 Appointment Radiation Oncology Judy Mccall M.D. [address] [place] [phone] 05/07/2022 Appointment Radiation Oncology Judy Mccall M.D. [address] [place] [phone] 05/08/2022 Appointment Radiation Oncology Judy Mccall M.D. [address] [place] [phone] 05/22/2022 Clinical Communication Admitting/Central Scheduling 05/26/2022 Appointment Radiology Merlyn Rose APRN, C.NLeopoldo, M.S.N. [address] [place] [phone] 05/27/2022 Office Visit Oncology Merlyn Rose APRN, C.NLeopoldo, M.S.N. [address] [place] [phone] documented as of this encounter Procedures Procedure Name Priority Date/Time Associated Diagnosis Comme nts HER2 AMPLIFICATION, Routine 10/01/2021 4:08 Malignant Neoplasm Of Results for this MISCELLANEOUS TUMOR, PM SLICER MACHINE OPERATOR Uterus Endometrial p rocedure are in FISH, TISSUE (HCC) the results section. SARS CORONAVIRUS 2, Routine 09/30/2021 12:18 Preprocedural Lab Results for this MOLECULAR DETECTION, PM SLICER MACHINE OPERATOR Exam procedure are in PCR, VARIES Contact With And the results (Suspected) Exposure section . To COVID-19 documented in this encounter Results HER2, Misc. Tumor, FISH, Tissue (10/01/2021 4:08 PM SLICER MACHINE OPERATOR) Component Value Ref Test Analysis Performed Pathologis t Range Method Time At Signature Result Summary Negative 10/23/2021 DTL 4:37 PM CDT Disclaimer Laboratory Developed Test (LDT). This test was develop ed 10/23/2021 DTL and its performance characteristics determined by [place] 4:37 PM [facility] in a manner consistent with CLIA requirements. It is CDT intended as an adjunct to existing prognostic clinical and pathologic information. This test is not intended to diagnose or screen for cancer. Since only a portion of the tumor was tested, it is possible that this result may not represent the entire tumor population. Per ASCO/CAP guidelines, HER2 FISH test results are valid for non-decalcified paraffin embedded specimens fixed in 10% neutral buffered formalin between 6 and 72 hours. Results from specimens fixed outside these parameters should be interpreted accordingly. Released By Keith Irwin M.D. 10/23/2021 DTL 4:37 PM CDT Result nuc unique([id number]) 10/23/2021 D TL 4:37 PM HER2/D17Z1 ratio: 1.33 CDT Average HER2 signals per cell: 3.4 Average D17Z1 signals per cell: 2.6 Reason for r/o HER2/peter gene 10/23/2021 DTL Referral amplification 4:37 PM CDT Specimen Tissue, Slides, 10/23/2021 DTL Unknown 4:37 PM CDT Source Endometrial 10/23/2021 DTL 4:37 PM CDT Tissue ID [id number] 10/23/2021 DTL 4:37 PM CDT Fixative Unknown 10/23/2021 DTL 4:37 PM CDT Method FISH using probes for HER2 (17q12) and a chromosome 17 10/23/2021 DTL centromere (D17Z1) control probe ([email or web address] 4:37 PM [employer]). Two technologists score signals in 60 CDT total nuclei from invasive or metastatic tumor after confirmation of probe performance by concurrent controls. Scoring method: Manual. Interpretation This tumor specimen is negative for HER2 amplificati on. 10/23/2021 DTL 4:37 PM HER2 (ERBB2) amplification is observed in approximately 30% CDT of endometrial serous carcinomas and is frequently heterogeneous. In situ hybridization (FISH) testing to detect HER2 amplification is recommended for tumors with equivocal (2+) HER2 expression by immunohistochemistry. For endometrial serous carcinoma, a HER2/centromere ratio >=2.0 is considered amplified. Additionally, an average HER2 copy number >=6.0 is considered amplified according to expert recommendations (Int J Gynecol Pathol 40(1): 17-2020. PMID: ??91618273) and according to updated ASCO/CAP (2018) guidelines for breast cancer (J Clin Oncol 36:4820-4201, 2018. PMID: 11641987). For high grade serous carcinomas occurring in the fallopian tube, ovary, or peritoneum, guidelines for interpretation of HER2 testing are not yet established. Correlation with HER2 immunohistochemistry and other clinical and pathologic data is recommended. Reference: J Clin Oncol 36:1677-3445, 2018. PMID: 27584159 Specimen Anatomical Collection Method Collection Time Receive d Time (Source) Location / / Volume Laterality Tissue (Uterus) 10/01/2021 4:08 PM 2021 2:46 SLICER MACHINE OPERATOR PM CDT Narrative This result has an attachment that is no t available. Resulting Agency Comment [id number] Jessy Pineda M.D. LAB GENETIC TESTING Performing Organization Address City/State/ZIP Code Phon e Number [facility] [address] [place], [place] [address] [facility] [place] [address] Laboratories-[facility] [address] [facility] SARS Coronavirus 2, Molecular Detection, PCR, Varies Asymptomatic (09/30/2021 12:18 PM SLICER MACHINE OPERATOR) [facility] Method Time Signature COVID-19, Swab, 09/30/2021 DTL PCR, Source Nasopharynx 4:20 PM SLICER MACHINE OPERATOR COVID-19, Undetected Undetected 09/30/2021 DTL PCR, Result 4:20 PM SLICER MACHINE OPERATOR Comment: SARS-CoV-2 RNA absent. This result does not rule out COVID-19 in the patient, as the sensitivity of the test depends o n the timing of the specimen collection and quality of the specimen. Result should be correlated with patient's history and clinical presentat ion. ----ADDITIONAL INFORMATION---- This RT-PCR test using the M-Changa SARS-Co V-2 Assay ( [employer].) performed on the M-Changa Two Module System has received Emergency Use Authorization (EUA) by the U.S. Food and Drug Administration, and is modified from the tester rocket engine's instructions with a bridging study. Performance characteristics were verifie d by [facility] in a manner consistent with CLIA requirements. Visit the CDC website: https://www.cdc.g ov/coronavirus/ for the most recent guidelines on Cruz virus testing. Fact Sheet for Healthcare Providers: https://www.fda.gov/media/473348/downloa d Fact Sheet for Patients: https://www.fda.gov/media/681729/downloa d Specimen Anatomical Collection Method Collection Time Receive d Time (Source) Location / / Volume Laterality Varies 09/30/2021 12:18 09/30/2021 (Nasopharynx) PM SLICER MACHINE OPERATOR 12:49 PM SLICER MACHINE OPERATOR Jessy Pineda M.D. LAB MICROBIOLOGY - GENERAL O BREANNE Performing Organization Address City/State/ZIP Code Phon e Number [facility] [address] [place], [place] [address] [facility] [place] [address] Laboratories[facility] [address] documented in this encounter Visit Diagnoses Diagnosis Malignant Neoplasm Of Uterus Endometrial (HCC) - Primary Preprocedural Lab Exam Contact With And (Suspected) Exposure To COVID-19 documented in this encounter Additional Health Concerns Infection Onset Date Last Indicated Resolved Time COVID19 Pending 09/30/2021 09/30/2021 09/30/2021 4:20 PM SLICER MACHINE OPERATOR documented as of this encounter
--- OUTSIDE RECORDS SUMMARY | 2022-05-01 16:17 | XMS_ITS | Encounter Summary ---
:1950 Author Organization [facility] Address [address] [place] [address] Care Team Providers Name Role Phone Unavailable Primary Care Provider Unavailable Encounter Details Date Type Department Care Team Description 09/16/2021 Education Division of Pulmonary Armaan Rodriguez M.D., M.P.H. [address] [place] [phone] Rhinitis Chronic Medicine in [place], [place], Ryan Watkins, R.R.T., L.R.T. [address] [place] [phone] [place] [address] [place] [phone] Social History Tobacco Use Types Packs/Day [...] More than 4 times per year 03/17/2022 congregation services? 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 [address] [place] [phone] 05/05/2022 Appointment Radiation Oncology Judy Mccall M.D. [address] [place] [phone] 05/06/2022 Appointment Radiation Oncology Judy Mccall M.D. [address] [place] [phone] 05/06/2022 Appointment Radiation Oncology Judy Mccall M.D. [address] [place] [phone] 05/07/2022 Appointment Radiation Oncology Judy Mccall M.D. [address] [place] [phone] 05/08/2022 Appointment Radiation Oncology Judy Mccall M.D. [address] [place] [phone] 05/22/2022 Clinical Communication Admitting/Central Scheduling 05/26/2022 Appointment Radiology Merlyn Rose APRN, C.NLeopoldo, M.S.N. [address] [place] [phone] 05/27/2022 Office Visit Oncology Merlyn Rose APRN, C.N.P., M.S.N. [address] [place] [phone] documented as of this encounter Visit Diagnoses Diagnosis Rhinitis Chronic documented in this encounter
--- OUTSIDE RECORDS SUMMARY | 2022-05-01 16:18 | XMS_ITS | Encounter Summary ---
:1950 Author Organization [facility] Address [address] [place] [address] Care Team Providers Name Role Phone Unavailable Primary Care Provider Unavailable Encounter Details Date Type Department Care Team Description 08/27/2021 Lab RST Jessy Valdes M.D. Mass Uterus [address] [facility] [address] [place] [address] [place] [phone] (Wo rk) Social History Tobacco Use Types [...] More than 4 times per year 03/17/2022 protestant services? 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 [address] [place] [phone] 05/05/2022 Appointment Radiation Oncology Judy Mccall M.D. [address] [place] [phone] 05/06/2022 Appointment Radiation Oncology Judy Mccall M.D. [address] [place] [phone] 05/06/2022 Appointment Radiation Oncology Judy Mccall M.D. [address] [place] [phone] 05/07/2022 Appointment Radiation Oncology Judy Mccall M.D. [address] [place] [phone] 05/08/2022 Appointment Radiation Oncology Judy Mccall M.D. [address] [place] [phone] 05/22/2022 Clinical Communication Admitting/Central Scheduling 05/26/2022 Appointment Radiology KlampeMerlyn APRN, C.N.P., M.S.N. [address] [place] [phone] 05/27/2022 Office Visit Oncology Anoopsadie Merlyn Sam APRN, C.N.P., M.S.N. 200 [place] [phone] documented as of this encounter Procedures Procedure Name Priority Date/Time Associated Diagnosis Comme nts PATHOLOGY REVIEW OF Routine 07/11/2021 10:59 AM Mass Uterus R esults for this OUTSIDE MATERIAL ELEVATOR REPAIRER procedure a re in the results section. documented in this encounter Results Pathology Review of Outside Material (07/11/2021 10:59 AM ELEVATOR REPAIRER) Component Value Ref Test Analysis Performed Pathologis t Range Method Time At Signature 08/28/2021 DTL 11:03 AM ELEVATOR REPAIRER Report Ivania Miller M.D. 08/28/2021 DTL electronically 11:03 AM signed by ELEVATOR REPAIRER I verify that I have examined all relevant slides/materials for the specimen(s) and rendered or confirmed the diagnosis. Material A. [id number]: Endometrial curettings, cervix 08/28/2021 DTL Received ? 11 stained slides 11:03 AM ELEVATOR REPAIRER Interpretation FINAL DIAGNOSIS 08/28/2021 DTL 11:03 AM Uterus, endometrium and cervix([id number]; 07/11/2021): ELEVATOR REPAIRER A. Endometrium, curettage: Fibrinopurulent exudate suggestive of pyometra. Scant background proliferative endometrium with breakdown. Fragments of fibroadipose tissue. B. Cervix, biopsy: ??Benign atrophic cervical mucosa. Sampling of ectocervix. Transformation zone not visualized. Negative for glandular neoplasia, squamous intraepithelial lesion, and malignancy. Immunohistochemical stains are performed by the referring institution and reviewed at [place], [place]. Block A1: P16 immunostain is performed. Glandular cells show focal/mosaic staining, providing no evidence of an endocervical neoplastic lesion is this sample. Specimen Anatomical Collection Method Collection Time Receive d Time (Source) Location / / Volume Laterality Varies 07/11/2021 10:59 08/27/2021 AM ELEVATOR REPAIRER 12:29 PM ELEVATOR REPAIRER Narrative This result has an attachment that is no t available. Jessy Pineda M.D. LAB SURG PATH ORDERABLES Performing Organization Address City/State/ZIP Code Phon e Number [facility] - [address] [place], [place] [address] [facility] [place] [address] Laboratories-[facility] [address] documented in this encounter Visit Diagnoses Diagnosis Mass Uterus documented in this encounter
--- OUTSIDE RECORDS SUMMARY | 2022-05-01 16:18 | XMS_ITS | Encounter Summary ---
:1950 Author Organization [facility] Address [address] [place] [address] Care Team Providers Name Role Phone Unavailable Primary Care Provider Unavailable Reason for Referral MRI/CAT/PET Scan (Routine) - Closed Specialty Diagnoses / Procedures Referred By Contact Refer red To Contact Radiology Diagnoses Unspecified Infectious Disease Lionel Mathews M.D. 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 [facility] [place] [facility] Procedures CT Abdomen Pelvis with IV Contrast CT Abdomen Pelvis without and with IV Contrast [address] [place] [address] Referral ID Status Reason Start Date Expiration Date Visits Requ ested Visits Authorized [id number] Closed 08/05/2021 08/05/2022 1 1 Encounter Details Date Type Department Care Team Description 08/12/2021 Hospital Encounter Department of Lionel Mathews Radiology jose miguel Hughes M.D. Infectious Disease [place], [place] [address] [place] [phone] Social History Tobacco Use Types Packs/Day Years [...] More than 4 times per year 03/17/2022 faith services? Do you belong to any clubs [...] at Date Recorded Female 07/20/2021 9:20 PM CEMENT [employer]RO[employer] documented as of this encounter Medications at [...] Appointment Radiation Oncology Dot Lopez M.D. [address] [place] [phone] 05/05/2022 Appointment Radiation Oncology Judy Mccall M.D. [address] [place] [address] 05/06/2022 Appointment Radiation Oncology Judy Mccall M.D. [address] [place] [phone] 05/06/2022 Appointment Radiation Oncology Judy Mccall M.D. [address] [place] [phone] 05/07/2022 Appointment Radiation Oncology Judy Mccall M.D. [address] [place] [phone] 05/08/2022 Appointment Radiation Oncology Judy Mccall M.D. [address] [place] [phone] 05/22/2022 Clinical Communication Admitting/Central Scheduling 05/26/2022 Appointment Radiology Merlyn Rose APRN, C.NLeopoldo, M.S.N. [address] [place] [phone] 05/27/2022 Office Visit Oncology Merlyn Rose APRN, C.NLeopoldo, M.S.N. [address] [place] [phone] documented as of this encounter Procedures Procedure Name Priority Date/Time Associated Comments Diagnosis CT ABDOMEN PELVIS RAD - Routine 08/12/2021 9:22 Unspecified Result s for this WITH IV CONTRAST (most inpatients AM CEMENT [employer]RO[employer] LO[employer]ER Infectious Disease p rocedure are in and all the results outpatients) section. documented in this encounter Results CT Abdomen Pelvis with IV Contrast (08/12/2021 9:22 AM CEMENT [employer]) Anatomical Region Laterality Modality Abdomen, Pelvis, Abdominal RST LOS, Abdominal ARZ LOS, N/A Computed Tomography Abdominal FLA LOS Specimen (Source) Anatomical Collection Method Collection Time Re ceived Time Location / / Volume Laterality 08/12/2021 12:58 PM CEMENT [employer]RO[employer] Impressions 08/12/2021 1:17 PM CEMENT [employer]RO[employer] 1. ??6.2 cm mass replacement of endometrium and myometrium is very likely endometrial carcinoma. 2. ??Periuterine fat infiltration and no dular tissue posterior to the left ovary are suspicious for tumor infiltration, t mar could be post procedure change. 3. ??Lymph nodes including malignant lym ph node in the retroperitoneal left periaortic region. Suspicious lymph node s along the left external and internal iliac vessels. Narrative 08/12/2021 1:17 PM CEMENT [employer] EXAM: CT ABDOMEN PELVIS WITH IV CONTRAST COMPARISON: None FINDINGS: There is ill-defined heterogen eous enhancing mass replacement of the endometrium and myometrium that is likel y from endometrial carcinoma (series 5 image 77). This mass measures 4.1 x 5.3 x 6.2 cm (anterior-posterior x medial-lateral x superior-inferior). Mas s is irregular and does not have appearance of fibroid. There is ill-defi shital fat infiltration around the uterus that could be a postprocedure change or tumor infiltration. Right ovary appears normal. Left ovary has 1.5 cm irregular nodular tissue posterior to it that is suspicious for tumor, though could be po stprocedural change (series 2 image 378). There is a malignant retroperitoneal lym ph node left of the infrarenal abdominal aorta measuring 1.6 x 1.4 x 3.2 cm (ante rior-posterior x medial-lateral x superior-inferior) (series 2 image 238, series 4 image 58). Smaller subcentimeter suspicious lymph nodes inf erior to this in the retroperitoneum. Few lymph nodes along the left external iliac vessels are suspicious for involvement with metastases, largest andrzej sures 1.6 x 0.8 cm (series 2 image 337). Suspicious lymph nodes node node mediall y adjacent to the left internal iliac vessels measures 0.9 x 0.8 cm (series 2 image 353). No ascites. 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 Colonic diverticulosis without acute diverticulitis. Mild splen ic enlargement with length 15 cm. Periampullary duodenal diverticulum. Oth erwise negative. Epic Semi-Urgent results utilized. ?? Procedure Note Stephan Baptiste M.D. - 08/12/2021 EXAM: CT ABDOMEN PELVIS WITH IV CONTRAST COMPARISON: None FINDINGS: There is ill-defined heterogen eous enhancing mass replacement of the endometrium and myometrium that is likel y from endometrial carcinoma (series 5 image 77). This mass measures 4.1 x 5.3 x 6.2 cm (anterior-posterior x medial-lateral x superior-inferior). Mas s is irregular and does not have appearance of fibroid. There is ill-defi shital fat infiltration around the uterus that could be a postprocedure change or tumor infiltration. Right ovary appears normal. Left ovary has 1.5 cm irregular nodular tissue posterior to it that is suspicious for tumor, though could be po stprocedural change (series 2 image 378). There is a malignant retroperitoneal lym ph node left of the infrarenal abdominal aorta measuring 1.6 x 1.4 x 3.2 cm (ante rior-posterior x medial-lateral x superior-inferior) (series 2 image 238, series 4 image 58). Smaller subcentimeter suspicious lymph nodes inf erior to this in the retroperitoneum. Few lymph nodes along the left external iliac vessels are suspicious for involvement with metastases, largest andrzej sures 1.6 x 0.8 cm (series 2 image 337). Suspicious lymph nodes node node mediall y adjacent to the left internal iliac vessels measures 0.9 x 0.8 cm (series 2 image 353). No ascites. 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 Colonic diverticulosis without acute diverticulitis. Mild splen ic enlargement with length 15 cm. Periampullary duodenal diverticulum. Oth erwise negative. Epic Semi-Urgent results utilized. IMPRESSION: 1. 6.2 cm mass replacement of endometriu m and myometrium is very likely endometrial carcinoma. 2. Periuterine fat infiltration and nodu lar tissue posterior to the left ovary are suspicious for tumor infiltration, t mar could be post procedure change. 3. Lymph nodes including malignant lymph node in the retroperitoneal left periaortic region. Suspicious lymph node s along the left external and internal iliac vessels. Lionel Mathews M.D. IMRazia CT PROCEDURES documented in this encounter Visit Diagnoses Diagnosis Unspecified Infectious Disease documented in this encounter Administered Medications Inactive Administered Medications - up to 3 most recent administrations Medication Order MAR Action Action Date Dose Rate Site iohexoL 300 mg iodine/mL Given 08/12/2021 9:16 AM 168 mL Right Antecubital solution 168 mL CEMENT [employer]RO[employer] (OMNIPAQUE) 168 mL, intravenous, Once in imaging, contrast, Starting on Thu08/12/21 at 0916, For 1 dose sodium chloride 0.9 % flush 92 Given 08/12/2021 9:16 AM CEMENT [employer] 92 m L Right Antecubital mL 92 mL, intravenous, Once in imaging, line care, Starting on Thu08/12/21 at 0916, For 1 dose sodium chloride 0.9 % Given 08/12/2021 9:16 AM CEMENT [employer]RO[employer] 10 mL Right Antecubital injection 10 mL 10 mL, intravenous, As needed, line care, Starting on Thu08/12/21 at 0916 documented in this encounter
--- OUTSIDE RECORDS SUMMARY | 2022-05-01 16:18 | XMS_ITS | Encounter Summary ---
:1950 Author Organization [facility] Address [address] [place] [address] Care Team Providers Name Role Phone Unavailable Primary Care Provider Unavailable Encounter Details Date Type Department Care Team Description 06/24/2021 Clinical Communication Department of Yesi Leyva Obstetrics and E, L.P.N. Gynecology in [address] [place], [place] [phone] [place], [place] [phone] (Work) [phone] Social History Tobacco Use Types Packs/Day Years Used Date Smoking Tobacco: Never Assessed Alcohol Habits Answer Date Recorded How often [...] or slept in a alf (including now)? Sex Assigned at Date Recorded Female 07/20/2021 9:20 PM NET DEV[employer]OPER CONTRACT documented as of this encounter Miscellaneous Notes Telephone Encounter - Conchita Harper - 06/24/2021 12:52 PM CST PA for Hysteroscopy dilation and curettage, Mirena Placement, midurethral sling with Bisi at [facility] on07/11/21 has been sent. Patient will schedule COVID test at her Primary Clinic- Michaela Queen DEVELOPER CONTRACT Telephone Encounter - Yesi Leyva L.P.N. - 06/24/2021 10:22 AM NET DEVELOPER CONTRACT [facility] Surgery Clinic Checklist Patient Contact Number: [phone] Surgeon: Bisi Surgical Service: (_) Orthopedics (_) General surgery (_) Ophthalmology (_) Podiatry (_) ENT (_) Urology (X) OB / Gynecology (_) Other Date of Surgery: 07-11-2021 Place of Surgery: [facility] Procedure (as written on Consent): Hysteroscopy dilation and curettage, Mirena Placement, midurethral sling Right, Left, Bilateral, N/A: NA Diagnosis (reason for surgery): ICD-10: N95.0, N39.3 CPT:70819,85724 Case Type: (_x) Outpatient (_) AM Admit (_) Inpatient (_) One day surgery Pre-op MD: Primary Post-Op Appt:(time frame when to return): 2 weeks Surgery Brochure Given: (X) Yes (_) No (_) Mailed to Patient DEVELOPER CONTRACT documented in this encounter Plan of Treatment Upcoming Encounters Date Type Specialty Care Team Description 05/02/2022 Appointment Radiation Oncology Dot Lopez M.D. [address] [place] [phone] 05/05/2022 Appointment Radiation Oncology Judy Mccall M.D. [address] [place] [phone] 05/06/2022 Appointment Radiation Oncology Judy Mccall M.D. [address] [place] [phone] 05/06/2022 Appointment Radiation Oncology Judy Mccall M.D. [address] [place] [phone] 05/07/2022 Appointment Radiation Oncology Judy Mccall M.D. [address] [place] [phone] 05/08/2022 Appointment Radiation Oncology Judy Mccall M.D. [address] [place] [phone] 05/22/2022 Clinical Communication Admitting/Central Scheduling 05/26/2022 Appointment Radiology Merlyn Rose APRN, C.NLeopoldo, M.S.N. [address] [place] [phone] 05/27/2022 Office Visit Oncology Merlyn Rose APRN, C.NLeopoldo, M.S.N. [address] [place] [phone] documented as of this encounter Visit Diagnoses Not on filedocumented in this encounter
--- OUTSIDE RECORDS SUMMARY | 2022-05-01 16:18 | XMS_ITS | Encounter Summary ---
:1950 Author Organization [facility] Address [address] [place] [address] Care Team Providers Name Role Phone Unavailable Primary Care Provider Unavailable Encounter Details Date Type Department Care Team Description 07/25/2021 Admin Visit Department of Family Medicine, [address] [address] [facility] [phone] Social History Tobacco Use Types Packs/Day Years [...] at Date Recorded Female 07/20/2021 9:20 PM LIME MIXER documented as of this encounter Plan of Treatment Upcoming Encounters Date Type Specialty Care Team Description 05/02/2022 Appointment Radiation Oncology Dot Lopez M.D. [address] [place] [phone] 05/05/2022 Appointment Radiation Oncology Judy Mccall M.D. [address] [place] [phone] 05/06/2022 Appointment Radiation Oncology Judy Mccall M.D. [address] [place] [phone] 05/06/2022 Appointment Radiation Oncology Judy Mccall M.D. [address] [place] [phone] 05/07/2022 Appointment Radiation Oncology Judy Mccall M.D. [address] [place] [phone] 05/08/2022 Appointment Radiation Oncology Judy Mccall M.D. [address] [place] [phone] 05/22/2022 Clinical Communication Admitting/Central Scheduling 05/26/2022 Appointment Radiology Merlyn Rose APRN, C.N.P., M.S.N. [address] [place] [phone] 05/27/2022 Office Visit Oncology Merlyn Rose APRN, C.N.P., M.S.N. [address] [place] [phone] documented as of this encounter Visit Diagnoses Not on filedocumented in this encounter Additional Health Concerns Infection Onset Date Last Indicated Resolved Time COVID19 Pending 07/25/2021 07/25/2021 07/26/2021 2:09 AM LIME MIXER documented as of this encounter
--- OUTSIDE RECORDS SUMMARY | 2022-05-01 16:18 | XMS_ITS | Encounter Summary ---
:1950 Author Organization [facility] Address [address] [place] [address] Care Team Providers Name Role Phone Unavailable Primary Care Provider Unavailable Reason for Referral Outpatient (Routine) - Closed Specialty Diagnoses / Procedures Referred By Contact Refer red To Contact Pulmonary Medicine Diagnoses Chronic Cough Jessy Pineda [facility] [address] [place] [address] Referral ID Status Reason Start Date Expiration Date Visits Requ ested Visits Authorized [id number] Closed 08/29/2021 08/29/[address] MRI/CAT/PET Scan (Routine) - Closed Specialty Diagnoses / Procedures Referred By Contact Refer red To Contact Diagnoses Mass Uterus Lymphadenopathy Jessy Pineda M.D. [facility] Procedures PET CT Skull to Thigh FDG [address] [place] [address] Referral ID Status Reason Start Date Expiration Date Visits Requ ested Visits Authorized [id number] Closed 08/29/2021 08/29/[address] Reason for Visit Outpatient (Routine) - Closed Specialty Diagnoses / Procedures Referred By Contact Refer red To Contact Obstetrics and Diagnoses Malignant Neoplasm Of Uterus Endometrial (HCC) Lionel Mathews [facility] Gynecology M.DYi [address] [place] [address] Referral ID Status Reason Start Date Expiration Date Visits Requ ested Visits Authorized [id number] Closed 08/12/2021 08/12/2022 1 1 Encounter Details Date Type Department Care Team Description 08/29/2021 Comprehensive Visit Department of Jessy Pineda Neoplasm Of Uterus Endometrial (HCC) (Primary Dx); Obstetrics and E, M.D. Mass Uterus; Gynecology in [address] [place] [address] Lymphadenopathy; [place], [place] Chronic Cough; [place] [address] Obesity Body Mass Index 30-39.9 Adult; [address] [place] [address] Preprocedural Lab Exam; [place], [place] (Work) Contact With And (Suspected) Exposure To COVID-19 [id number] [phone] Social History Tobacco Use Types Packs/Day Years [...] at Date Recorded Female 07/20/2021 9:20 [address] PATROLLER documented as of this encounter Consult Notes Jessy Pineda M.D. - 08/29/2021 10:00 AM CST SUBJECTIVE REFERRAL SOURCE Lionel Mathews M.D. CHIEF COMPLAINT/REASON FOR VISIT Consult HISTORY OF PRESENT CONDITION Chief complaint: likely endometrial cancer, lymphadenopathy, chronic cough Ms. Pavon is a 70 y.o., who presents in consultation at the request of Lionel Mathews M.D. for an opinion regarding the above. Patient was seen by primary care June 11 for postmenopausal bleeding, present for a few days. Per report, stress urinary incontinence, no changes with voiding. 06/11/21 Pap (Allian): atypical glandular cells, favor neoplastic?? Endometrial biopsy collected, reported scant atrophic endometrium with inflammatory debris suggestive of pyometra, negative for hyperplasia, atypia, or malignancy. 06/20/21 US: INDICATION: Postmenopausal bleeding. History of dermoid cyst excision. TECHNIQUE: Ultrasound pelvis transabdominal and transvaginal for better assessment or to better visualize the endometrium. Real-time sonographic images with spectral and color Doppler imaging of the ovaries were obtained. COMPARISON: None FINDINGS: Uterus: 6.5 x 5.2 by 4.7 cm. Fundal uterine fibroid measures up to 5.0 cm in diameter. Endometrium: Measures between 6 mm mid and fundal and 9 mm inferiorly with an asymmetrical 5 mm low endometrial hypoechoic mass. Right ovary: Not visualized Left ovary: 2.2 x 1.7 x 0.8 cm. No ovarian or adnexal masses. Normal arterial and venous blood flow. Cul-de-sac: No significant free fluid. IMPRESSION: 1. 5 cm intramural leiomyoma in the uterine fundus. 2. Focal endometrial thickening with a 5 millimeter hypoechoic mass/cyst in the lower endometrial segment. 3. Left ovary normal. Right ovary not identified. 07/11/21: Hysteroscopy with morcellation, D&C, Cervical biopsy, Retropubic Midurethral Sling. Theprocedure was complicated by false passage being created on hysteroscopy with sampling of extra uterine tissue. The intrauterine pathology showed scant proliferative endometrium as well as possible pyometra, similar to her prior endometrial biopsy results. There is a possibility of underlying malignancy with the presence of pyometra in a patient of this age, however no malignant tissue was noted. 08/12/20: CT A/P: FINDINGS: There is ill-defined heterogeneous enhancing mass replacement of the endometrium and myometrium that is likely from endometrial carcinoma (series 5 image 77). This mass measures 4.1 x 5.3 x 6.2 cm (anterior-posterior x medial- lateral x superior-inferior). Mass is irregular and does not have appearance of fibroid. There is ill-defined fat infiltration around the uterus that could be a postprocedure change or tumor infiltration. Right ovary appears normal. Left ovary has 1.5 cm irregular nodular tissue posterior to it that is suspicious for tumor, though could be postprocedural change (series 2 image 378). ?? There is a malignant retroperitoneal lymph node left of the infrarenal abdominal aorta measuring 1.6x 1.4 x 3.2 cm (anterior-posterior x medial-lateral x superior-inferior) (series 2 image 238, series4 image 58). Smaller subcentimeter suspicious lymph nodes inferior to this in the retroperitoneum. ?? Few lymph nodes along the left external iliac vessels are suspicious for involvement with metastases, largest measures 1.6 x 0.8 cm (series 2 image 337). Suspicious lymph nodes node node medially adjacent to the left internal iliac vessels measures 0.9 x 0.8 cm (series 2 image 353). ?? No ascites. 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 Colonic diverticulosis without acute diverticulitis. Mild splenic enlargement with length 15 cm. Periampullary duodenal diverticulum. Otherwise negative. Patient has had rare vaginal bleeding, mostly some spotting when she gets up in the morning. She does have some lower abdominal cramping, especially a sharp pain on the left side that goes from her pubic bone to her left lower quadrant. She also has some occasional middle low back pain for which she has been doing some exercises. The mid urethral sling has helped greatly with her urine leakage. The patient did have an increase in her depression during the pandemic and has gained some weight during that time after having lost a lot of weight on a weight loss program. She denies any nausea or vomiting at this point. Patient has a history of chronic cough for many years. She says that approximately two to 3 times a day she has severe coughing fits. Her voice has also been becoming more raspy over the last several months to a year. She has had no change in her cough over the last six months. ?? Spool Cleaner Hand Hx: -Had a conization for a level III over ten years ago, normal screening sent -Family history of colon cancer in mother and MGM. Has had colonoscopies since age 40 because of that. Has had non-cancerous polyps removed. The following portions of the patient's history were reviewed and updated as appropriate: allergies,current medications, family history, medical history, social history, surgical history and problem list. Past Medical History: Diagnosis Date ??? Anxiety Generalized Disorder 09/15/2006 ??? Asthma Mild Persistent (HCC) 08/07/2011 ??? Conization Cervical Status Post ELIU 3 ??? Depression Major One Episode Mild (HCC) 09/15/2006 ??? Gastroesophageal Reflux Disease NOS 08/29/2021 ??? Loss Hearing Sensorineural Bilateral 09/27/2008 ??? Morbid Obesity (HCC) 05/28/2016 ??? Other Psoriasis 09/15/2006 ??? Rhinitis Chronic 09/15/2006 ??? Sleep Apnea 09/15/2006 Past Surgical History: Procedure Laterality Date ??? APPENDECTOMY ??? CERVICAL CONIZATION W/ LASER ??? CYSTECTOMY OVARIAN ??? DILATION AND CURETTAGE, DIAGNOSTIC / THERAPEUTIC 07/11/2021 ??? HERNIA REPAIR Femoral ??? HYSTEROSCOPY 07/11/2021 ??? PELVIC LAPAROSCOPY No surgical intervention ??? RHINOPLASTY ??? TONSILLECTOMY AND ADENOIDECTOMY ??? URETHRAL SLING 07/11/2021 Social History Socioeconomic History ??? Marital status: [...] and Sexual Activity ??? Alcohol use: Not on file ??? Drug use: Not on file ??? Sexual activity: Not on file Other Topics Concern ??? Not on file Social History Narrative ??? Not on file Social Determinants of Health Financial Resource Strain: [...] and Family: Twice a week ??? Attends [employer] Services: More than 4 times per year [...] Unstable Housing in the Last Year: No MENSTRUAL HISTORY No LMP recorded. Patient is postmenopausal. FAMILY HISTORY Breast, ovarian, colon, or uterine cancer-related family history is not on file. REVIEW OF SYSTEMS A comprehensive review of systems was negative except as noted in HPI. OBJECTIVE VITAL SIGNS There is no height or weight on file to calculate BMI. ECOG status: 0 PHYSICAL EXAMINATION GYNSURG Exam Amb General: Well appearing, no apparent distress, alert and oriented. DIAGNOSTICS EXT Hemoglobin Date Value Ref Range Status 07/08/2021 12.7 12.0 - 16.0 g/dL Final EXT Leukocytes Date Value Ref Range Status 08/22/2019 5.4 4.5 - 11.0 thou/cu mm Final EXT Platelet Count Date Value Ref Range Status 08/22/2019 199 140 - 440 thou/cu mm Final EXT Glucose Date Value Ref Range Status 10/10/2020 87 65 - 100 mg/dL Final Creatinine, P Date Value Ref Range Status 08/06/2021 0.82 0.59 - 1.04 mg/dL Final EXT Albumin, S Date Value Ref Range Status 10/10/2020 4.1 3.2 - 4.6 g/dL Final PATHOLOGY, LAST 30 DAYS No results found for this or any previous visit (from the past 720 hour(s)). IMAGING RESULTS, LAST 7 DAYS - IMPRESSION ONLY No results found. ASSESSMENT / PLAN Visit diagnosis: #1 Malignant Neoplasm Of Uterus Endometrial (HCC) #2 Mass Uterus #3 Lymphadenopathy #4 Chronic Cough #5 Obesity Body Mass Index 30-39.9 Adult #6 Preprocedural Lab Exam #7 Contact With And (Suspected) Exposure To COVID-19 I discussed with the patient that we have a few things to address year. First, she has enlarged lymph nodes in the zaynab renal area as well as along the iliac vessels. I would like to get a PET scan to determine whether not these are PET avid. If they are PET avid, we will need to perform a laparotomy in order to do a more extensive debulking procedure. If they are not PET avid, we will need to proceed with a laparoscopic/robotic hysterectomy, BSO, and sentinel lymphadenectomy. We will get the PET scan and then determine our approach. The patient has had this severe chronic cough for several years. I am very concerned about her ability to heal fascial incisions if she is having severe coughing fits several times per day. We have putin a visit with Pulmonary as well as pulmonary function tests. She will get a CT scan as part of thePET, and so that will suffice for chest imaging for them per the pulmonary doctor of the day. Once we have the pulmonary workup and her PET scan, we will meet again to discuss specific surgical plan. We will plan to do this the day before surgery with her other pre-surgical requirements. All questions were answered at this time. PATIENT EDUCATION Ready to learn, no apparent learning barriers were identified; learning preferences include listening. Explained diagnosis and treatment plan; patient expressed understanding of the content. BILLING I personally spent over half of a total 45 minutes in counseling and discussion with the patient andcoordination of care as described above. Jessy Pineda M.D. LANE PATROLLER documented in this encounter Plan of Treatment Upcoming Encounters Date Type Specialty Care Team Description 05/02/2022 Appointment Radiation Oncology Dot Lopez M.D. [address] [place] [phone] 05/05/2022 Appointment Radiation Oncology Judy Mccall M.D. [address] [place] [phone] 05/06/2022 Appointment Radiation Oncology Judy Mccall M.D. [address] [place] [phone] 05/06/2022 Appointment Radiation Oncology Judy Mccall M.D. [address] [place] [phone] 05/07/2022 Appointment Radiation Oncology Judy Mccall M.D. [address] [place] [phone] 05/08/2022 Appointment Radiation Oncology Judy Mccall M.D. [address] [place] [phone] 05/22/2022 Clinical Communication Admitting/Central Scheduling 05/26/2022 Appointment Radiology Merlyn Rose APRN, C.N.P., M.S.N. [address] [place] [phone] 05/27/2022 Office Visit Oncology Merlyn Rose APRN, C.N.P., M.S.N. 200 [facility] [place] [address] Scheduled Referrals Name Type Priority Associated Diagnoses Order S [facility] Pulmonary Medicine Outpatient Referral Routine Chronic Cough E xpected: - Cough consult 08/29/2021 (clinic) (Approximate), Expires: 11/27/2022 documented as of this encounter Results Pulmonary Function Tests (09/04/2021 10:03 AM AIRPLANE PATROLLER) Analysis Performed At Patho logist Time Signature VC MAX POST 3.25 L 09/04/2021 [facility] 3:13 PM AIRPLANE PATROLLER SUITE PostFVC 3.24 L 09/04/2021 [facility] 3:[facility] PM AIR[facility] PATROLLER SUITE PostFEV1 2.78 L 09/04/2021 [facility] 3:13 PM AIRPL[facility] PATROLLER SUITE FEV1/FVC POST 85.68 % 09/04/2021 [facility] 3:13 PM AIR[address] PATROLLER SUITE FEF 25-75 % 3.86 L/s 09/04/2021 [facility] POST 3:13 PM AIRPLANE PATROLLER SUITE PEF POST 7.03 L/s 09/04/2021 [facility] 3:13 PM AIRPLANE PATROLLER SUITE FET POST 7.30 sec 09/04/2021 [facility] 3:13 PM [address] PATROLLER SUITE DLCO SINGLE 15.92 ml/(min*mm 09/04/2021 [facility] BREATH POST Hg) 3:13 PM [address] PATROLLER SUITE VA SINGLE 5.47 L 09/04/2021 [facility] BREATH POST 3:13 PM AIR[address] PATROLLER SUITE VC MAX PRE 3.39 L 09/04/2021 [facility] 3:13 PM AIRPLANE PATROLLER SUITE FVC 3.36 L 09/04/2021 [facility] 3:13 PM AIRPLANE PATROLLER SUITE FEV1 2.73 L 09/04/2021 [facility] 3:13 PM AIRPLANE PATROLLER SUITE FEV1/FVC 81.16 % 09/04/2021 [facility] 3:13 PM [address] PATROLLER SUITE ELF80-33% 2.66 L/s 09/04/2021 [facility] 3:13 PM AIR[address] PATROLLER SUITE PEF PRE 5.89 L/s 09/04/2021 [facility] 3:13 PM [address] PATROLLER SUITE FET PRE 7.55 sec 09/04/2021 [facility] 3:13 PM AIR[address] PATROLLER SUITE SUBSTANCE POST Albuterol 09/04/2021 [facility] 3:13 PM AIR[address]ANE PATROLLER SUITE DOSE POST 2 Puff 09/04/2021 [facility] 3:13 PM AIRPLANE PATROLLER SUITE % PRED VC MAX 116 % % 09/04/2021 [facility] 3:13 PM AIRPLANE PATROLLER SUITE FVC% 115 % % 09/04/2021 [facility] 3:13 PM AIRPLANE PATROLLER SUITE FEV1% 120 % % 09/04/2021 [facility] 3:13 PM AIRPLANE PATROLLER SUITE % PRED 104 % % 09/04/2021 [facility] FEV1/FVC 3:13 PM AIRPLANE PATROLLER SUITE % PRED FEF 141 % % 09/04/2021 [facility] 25-75% 3:13 PM AIRPLANE PATROLLER SUITE % PRED PEF 105 % % 09/04/2021 [facility] 3:13 PM AIRPLANE PATROLLER SUITE PRED VC MAX 2.93 09/04/2021 [facility] 3:13 PM AIRPLANE PATROLLER SUITE PRED FVC 2.93 09/04/2021 [facility] 3:13 PM AIRPLANE PATROLLER SUITE PRED FEV 1 2.26 09/04/2021 [facility] 3:13 PM AIRPLANE PATROLLER SUITE PRED FEV1/FVC 77.9 09/04/2021 [facility] 3:13 PM AIRPLANE PATROLLER SUITE PRED FEF 1.89 09/04/2021 [facility] 25-75% 3:13 PM AIRPLANE PATROLLER SUITE PRED PEF 5.6 09/04/2021 [facility] 3:13 PM AIRPLANE PATROLLER SUITE PRED DLCO 20.1 09/04/2021 [facility] 3:13 PM AIRPLANE PATROLLER SUITE Specimen (Source) Anatomical Collection Method Collection Time Re ceived Time Location / / Volume Laterality 09/04/2021 10:03 AM AIRPLANE PATROLLER Narrative This result has an attachment that is no t available. Jessy Pineda M.D. PFT ORDERABLES Performing Organization Address City/State/ZIP Code Phon e Number [facility] [address] Exhaled Nitric Oxide - Pulmonology (09/04/2021 9:59 AM AIRPLANE PATROLLER) P athologist Signature Exhaled NO Oral 18 ONBASE Parts per 39 ONBASE billion (ULN) Specimen (Source) Anatomical Location Collection Method / Collectio n Time Received Time / Laterality Volume Jessy Pineda M.D. PFT ORDERABLES Performing Organization Address City/State/ZIP Code Phon e Number ONBASE ONBASE NA SARS Coronavirus-2 RNA, V Asymptomatic (09/01/2021 10:11 AM AIRPLANE PATROLLER) [facility] Method Time Signature SARS-CoV-2 Swab, 09/01/2021 [facility] Specimen Nasopharynx 10:53 PM Source AIRPLANE PATROLLER SARS CoV-2 Undetected Undetected 09/01/2021 [facility] RNA, TMA 10:53 PM AIRPLANE PATROLLER Comment: SARS-CoV-2 RNA absent. This result does not rule out COVID-19 in the patient, as the sensitivity of the test depends o n the timing of the specimen collection and the quality of the specim en. Result should be correlated with patient's history and clinical presentat ion. ----ADDITIONAL INFORMATION---- This molecular amplification test was pe rformed using the Aptima SARS-CoV-2 assay ([employer] on the [employer] tem under emergency use authorization (EUA) by the U.S. Food and Drug Administ ration. Fact sheets for this EUA assay can be fo und at the following links: For Healthcare Providers: https://www.Hop Skip Connect a.gov/media/062916/download For Patients: https://www.fda.gov/media/ 741927/download Specimen Anatomical Collection Method Collection Time Receive d Time (Source) Location / / Volume Laterality Varies 09/01/2021 10:11 09/01/2021 4:33 (Nasopharynx) AM AIRPLANE PATROLLER PM AIRPLANE PATROLLER Jessy Pineda M.D. LAB MICROBIOLOGY - GENERAL O RDERABLES Performing Organization Address City/State/ZIP Code Phon e Number [facility] [address] [place] [id number] [place] [address] Skull to Thigh FDG (08/29/2021 12:33 PM AIRPLANE PATROLLER) Anatomical Region Laterality Modality Body, Nuclear Medicine PET RST LOS, N/A Posi luisana Emission Tomography (PET), PET ARZ LOS, Nuclear Medicine PET FLA Po sitron Emission Tomography (PET) LOS, Nuclear Medicine Specimen (Source) Anatomical Collection Method Collection Time Re ceived Time Location / / Volume Laterality 08/29/2021 8:40 PM AIRPLANE PATROLLER Impressions 08/29/2021 8:52 PM AIRPLANE PATROLLER 1. ??Intense FDG activity within suspected endometrial carcinoma, with right iliac, left periaortic tea metastases and suspected infiltration into adjacent fat posteriorly and along the left adnex a. 2. ??Indeterminate mild activity in a fe w mildly enlarged left iliac lymph nodes. Narrative 08/29/2021 8:52 PM AIRPLANE PATROLLER EXAM: ??PET CT SKULL TO THIGH FDG Serum glucose at time of F-18 FDG inject ion was 86 mg/dL. Patient followed standard dietary/fasting requirements fo r this exam. RADIOPHARMACEUTICAL/MEDS: Route: intravenous fludeoxyglucose F 18 injection LONGTERM (FDG F-18),9.9 millicurie TECHNIQUE: ??F-18 FDG PET/CT [...] RADIOPHARMACEUTICAL/MEDS: Route: intravenous fludeoxyglucose F 18 injection LONGTERM (FDG F-18),9.9 millicurie TECHNIQUE: F-18 FDG PET/CT [...] mildly enlarged left iliac lymph nodes. Jessy Pineda M.D. [place] PROCEDURES documented in this encounter Visit Diagnoses Diagnosis Malignant Neoplasm Of Uterus Endometrial (HCC) - Primary Mass Uterus Lymphadenopathy Chronic Cough Obesity Body Mass Index 30-39.9 Adult Preprocedural Lab Exam Contact With And (Suspected) Exposure To COVID-19 Mass Uterus Lymphadenopathy documented in this encounter
--- OUTSIDE RECORDS SUMMARY | 2022-05-01 16:18 | XMS_ITS | Clinical Summary ---
:1950 Author Organization [facility] [place] [address] Care Team Providers Name Role Phone Loida Estrada MD Primary Care Provider [phone] Allergies Active Allergy Reactions Severity Noted Date Comments Amoxicillin-Pot Diarrhea, Vomiting, Medium 08/04/2013 Has t olerated Clavulanate Hives amoxillin and penicillins wel l, this one just gave h er upset stomach a nd diarrhea. I do NOT think she has a n allergy to penicillins. Other reaction( s): GI intolerance Negative histam ine control on peni cillin allergy testing Avoid penicilli ns & cephalosporins. May use cefazolin o nly. Diclofenac Angioedema, Hives High 07/28/2010 Patient re ports hives over her entire body and has since a voided other NSAIDs in cluding OTCs such as ibuprofen/napro xen Sulfa (Sulfonamide Hives 09/15/2006 Antibiotics) Medications Medication Sig Dispensed Refills Start End Date Status Date cetirizine (ZYRTEC) Take 1 tablet 30 tablet 0 Active 10 mg by mouth once 0 tabletIndications: daily. Allergic reaction, urticaria, Hives omeprazole (PRILOSEC) Take 1 capsule 30 capsule 0 Active 20 mg by mouth once 1 capsuleIndications: daily before a Esophageal reflux meal. Nebulizer Nebulizer, neb 1 Device 0 Activ e kit, neb cup 5 and mask. Medication: Duoneb, and Albuterol For home use. Length of need for Medicare patients: 99+ inhalational spacing For home use. 1 Device 0 Active device (AEROCHAMBER 0 MAX WITH FLOW-VU)Indications: Moderate intermittent asthma without complication CPAPIndications: CORTES CPAP machine 1 Device 11 Active (obstructive sleep for home use at 1 apnea), Nasal pressure: 4-12 congestion, Dry mouth cmw , Heated humidifier x 1 q 5 yr, Humidifier chamber x 1 q 6 mo, nasal mask x1 q 3mos, with cushion x 2 q mo, Heated tubing x 1 q 3 mo, Headgear x 1 q 6 mo, Filters: Disposable x 2 q mo non-disposable filters x1 q 6mo, Length of Need: 99 months, Frequency of use: Daily fluticasone (50 mcg Inhale 2 Sprays 48 g 11 Active per actuation) nasal to both 1 solution nostrils 2 (FLONASE)Indications: times daily. Other seasonal allergic rhinitis montelukast Take 1 Tablet 90 tablet. 3 Act charles (SINGULAIR) 10 mg (10 mg) by 2 tabletIndications: mouth at Moderate persistent bedtime. asthma with exacerbation ferrous sulfate, 65 Take 325 mg by 0 Active mg elemental, tablet mouth once every other day. albuterol (PROVENTIL) Inhale 3 mL 180 mL 0 Active 0.083 % neb (2.5 mg) via a 2 solutionIndications: nebulizer every Mild persistent 4 hours if asthma without needed for complication Cough 1st choice or Cough 2nd choice. albuterol-ipratropium Inhale 3 mL via 180 mL 0 Active (DUONEB) (2.5-0.5 mg) a nebulizer 2 in 3 mL NEBULIZATION every 6 hours solutionIndications: if needed for Cough Shortness of Breath 1st choice or Shortness of Breath 2nd choice. albuterol HFA (ProAir Inhale 2 Puffs 1 Each 3 Active HFA) 90 mcg/actuation by mouth every 2 inhalerIndications: 4 hours if Acute bronchospasm needed for Shortness of Breath 1st choice or Shortness of Breath 2nd choice. clindamycin 1% Apply topically 0 Active (CLEOCIN-T) 1 % to affected 2 lotion area(s) 2 times daily if needed. ondansetron (ZOFRAN Take 8 mg by 0 Active ODT) 8 mg mouth every 8 2 disintegrating tablet hours if needed. prochlorperazine Take 10 mg by 0 10/23/19 Active (COMPAZINE) 10 mg mouth every 6 2 23 tablet hours if needed. apixaban (Eliquis) 5 Take 5 mg by 0 Active mg tablet mouth in the morning and 5 mg in the evening. CALCIUM ORAL Take 1 Tablet 0 Act charles by mouth 2 times daily. CRANBERRY ORAL Take 1 Tablet 0 A ctive by mouth 2 times daily. cholecalciferol, Take 1 Tablet 0 Active vitamin D3, (VITAMIN by mouth once D3 ORAL) daily. 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 depression in partial remission (HC) LORazepam (ATIVAN) Take 0.5 mg by 0 0.5 mg tab mouth every 8 2 22 hours if needed for Nausea/Vomiting . Active Problems Problem Noted Date Chemotherapy-induced neutropenia 02/12/2022 Pulmonary embolus 02/07/2022 Nausea & vomiting 02/07/2022 Colitis 02/07/2022 Diarrhea 02/07/2022 Hematochezia 02/07/2022 Acute anemia 02/07/2022 Thrombocytopenia 02/07/2022 Other alf (current) drug therapy 12/31/2021 Dehydration 11/22/2021 Allergy status to penicillin 09/30/2021 Chronic cough 09/16/2021 Malignant neoplasm of uterus 09/16/2021 Carcinoma of endometrium 09/05/2021 Overview: Formatting of this note might be differe nt from the original. Added automatically from request for alin yanez [phone] Atypical glandular cells, favor neoplasia on cervical Pap smear 06/10/2021 Overview: 06/11/2021 AGC, favor neoplastic Plan: Conization and D&C scheduled 2020 If malignancy is found, we will refer p atient up to [facility]. Morbid obesity 05/28/2016 FH: colon cancer 10/26/2014 Mild persistent asthma 08/07/2011 Sensorineural hearing loss, bilateral 09/27/2008 Other psoriasis 09/15/2006 Major depressive disorder, single episode, mild 2006 Anxiety state, unspecified 09/15/2006 Chronic rhinitis 09/15/2006 Unspecified sleep apnea 09/15/2006 Generalized anxiety disorder 09/15/2006 Esophageal reflux Personal history of colonic polyps Resolved Problems Problem Noted Date Resolved Date FH: colon polyps 10/26/2014 02/12/2022 Acute bronchospasm 09/15/2006 02/07/2022 Encounters Date Type Specialty Care Team Description 04/26/2022 Refill Loida Estraad Refill Request Scarlett Cintron (Sertraline) 04/20/2022 Refill Loida Estrada Refill Request Scarlett Cintron (Sertraline) 02/17/2022 Telephone Loida Estrada Error-please di luis Cintron MD 02/12/2022 Phone Office Visit [facility] F/U (Colitis) Scarlett Cintron MD 02/10/2022 Patient Outreach Sarah Lawrence, Primary RN Care RN Management; [facility] F/U (DOD 02/08/22 [place] [address] Dx Colitis ) 02/06/2022 - Emergency Cahone, Leena Colitis ([facility] Dx); 02/08/2022 MD Liudmila Chills (without fever); Stephan Hill Endometrial cancer (HC); MD Guido On antineoplastic chemotherapy; Riki, Vomiting and di arrhea; Lionel Parker, Anemia, unsp ecified type; Thrombocytopeni a (HC) Discharge Summary - Stephan Hill MD - 02/08/2022 8:00 AM CDT Images from the original not e were not included. HOSPITALIST DISCHARGE SUMMAR Y ? ? [facility] Admission Date: 02/06/2022 Discharge Date: 02/08/2022 Discharge Plan: Nelda linda was discharged to home. Principal Diagnosis colitis from chemotherapy Hospital Problem List Principal Problem: Colitis Active Problems: Unspecified sleep apnea Esophageal reflux Mild persistent asthma Morbid obesity (HC) Carcinoma of endometrium (H C) Pulmonary embolus (HC) Nausea & vomiting Diarrhea Hematochezia Acute anemia Thrombocytopenia (HC) ADDITIONAL COMMENTS REGARDIN G DIAGNOSIS SPECIFICITY Additional Diagnosis Informa tion ?? Hospital Course She was admitted with colit is and this abated without therapy in hospital. No infectious cause was found. She also had a pancytopenia from chemotherapy and that will need to be checked in clinic. Recommendations for Outpatie nt Provider ? ? PCP: Loida Estrada MD Recommendations for outpati ent provider Specific recommendations to be addressed at the follow up visit: Check her blood counts and just how she is doing Medication regimen changes: no medications were changed. Follow-up labs/imaging: BASI C METABOLIC PANEL/CBC at post hospital visit Other specialty follow-up no t included in DC orders: None Special considerations: none . Functional evaluations: Fall Risk: Total Score (If 5 or > is High Risk): 1 (02/07/222199) NuDESC (>/=2 abnormal): 0 ( 02/07/222199) MOCA: // SLUMS: Discharge Medications Your Home Medicines CONTINUE taking these medici fiona Instructions acetaminophen-codeine 300-30 mg per tablet For diagnoses: Postoperative pain Commonly known as: TYLENOL # 3 Take 1 Tablet by mouth ever y 6 hours if needed for Pain. Max acetaminophen dose: 4000mg in 24 hrs. * albuterol 0.083 % neb solu tion For diagnoses: Mild persiste nt asthma without complication Commonly known as: PROVENTIL Inhale 3 mL (2.5 mg) via a nebulizer every 4 hours if needed for Cough 1st choice or Cough 2nd choice. * albuterol HFA 90 mcg/actua tion inhaler For diagnoses: Acute broncho spasm Commonly known as: ProAir HF A Inhale 2 Puffs by mouth heavenly ry 4 hours if needed for Shortness of Breath 1st choice or Shortness of Breath 2nd choice. albuterol-ipratropium (2.5-0 .5 mg) in 3 mL NEBULIZATION solution For diagnoses: Cough Commonly known as: DUONEB Inhale 3 mL via a nebulizer every 6 hours if needed for Shortness of Breath 1st choice or Shortness of Breath 2nd choice. CALCIUM ORAL Take 1 Tablet by mouth 2 ti mes daily. cetirizine 10 mg tablet For diagnoses: Allergic reac tion, urticaria, Hives Commonly known as: ZyrTEC Take 1 tablet by mouth once daily. clindamycin 1% 1 % lotion Commonly known as: CLEOCIN-T Apply topically to affected area(s) 2 times daily if needed. CPAP For diagnoses: CORTES (obstruct charles sleep apnea), Nasal congestion, Dry mouth CPAP machine for home use a t pressure: 4-12 cmw , Heated humidifier x 1 q 5 yr, Humidifier chamber x 1 q 6 mo, nasal mask x1 q 3mos, with cushion x 2 q mo, Heated tubing x 1 q 3 mo, Headgear x 1 q 6 mo , Filters: Disposable x 2 q mo non-disposable filters x1 q 6mo, Length of Need: 99 months, Frequency of use: Daily CRANBERRY ORAL Take 1 Tablet by mouth 2 ti mes daily. Eliquis 5 mg tablet Generic drug: apixaban Take 5 mg by mouth in the m orning and 5 mg in the evening. ferrous sulfate (65 mg eleme ntal) tablet Take 325 mg by mouth once e very other day. fluticasone (50 mcg per actu ation) nasal spray For diagnoses: Other seasona l allergic rhinitis Commonly known as: FLONASE Inhale 2 Sprays to both nos trils 2 times daily. Doctor's comments: Patient w ill call when needs filled inhalational spacing device For diagnoses: Moderate inte rmittent asthma without complication Commonly known as: Aerochamb er Max with Flow-VU For home use. LORazepam 0.5 mg Tab Commonly known as: ATIVAN Take 0.5 mg by mouth every 8 hours if needed for Nausea/Vomiting. medication order [facility] Triple Nasa l Sikes : 2 sprays both nostrils twice daily montelukast 10 mg tablet For diagnoses: Moderate pers istent asthma with exacerbation Commonly known as: SINGULAIR Take 1 Tablet (10 mg) by mo uth at bedtime. Doctor's comments: Patient w ill call when needs filled Nebulizer Nebulizer, neb kit, neb cup and mask. Medication: Duoneb, and Albuterol For home use. Length of need for Medicare patients: 99+ omeprazole 20 mg Delayed-Rel ease capsule For diagnoses: Esophageal re flux Commonly known as: PRILOSEC Take 1 capsule by mouth onc e daily before a meal. Doctor's comments: Approved for 30 days, due for annual follow up visit 08/2011 ... CONI LEE RN, 07/20/2011 8:39 AM ondansetron 8 mg disintegrat ing tablet Commonly known as: ZOFRAN OD T Take 8 mg by mouth every 8 hours if needed. prochlorperazine 10 mg table t Commonly known as: COMPAZINE Take 10 mg by mouth every 6 hours if needed. sertraline 100 mg tablet For diagnoses: Recurrent emma or depression in partial remission (HC) Commonly known as: ZOLOFT Take 1 Tablet (100 mg) by m outh once daily. Doctor's comments: 11/01/2021 This Rx replaces all other Rxs for this medication VITAMIN D3 ORAL Take 1 Tablet by mouth once daily. * This list has 2 medicatio n(s) that are the same as other medications prescribed for you. Read the directions carefully, and ask your doctor or other care provider to review them with you. Pertinent Findings / Procedu res First weight: 95.7 kg (211 l b) (02/06/22 192) Last weight: 92.4 kg (203 lb 12.8 oz) (02/07/22 0157) Consultants None Diet / Activity / Follow-Up After Discharge Orders and I nstructions Primary Care Provider jose stacy up appointment(s) Loida Estrada MD When to follow up: 1 to 5 d ays When is patient being disch arged?: Today Regular diet: - eat a wide variety of alla ds, including fruits and vegetable, dairy, grains and meats - limit the amount of solid fat such as butter, margarine and shortening - get most of your fat sourc es from fish, nuts and vegetable oils Up as tolerated Get regular activity and tr y to walk for a total of 30 minutes per day. Start by walking for 5 to 10 minutes at one time and slowly build to walking for 30 minutes one time. Rest is also an important pa rt of healing. Slowly return to your regular level of activity. Save your energy by spreading out activities that make you tired. Rest as needed. When should you be concerne d? Your health care provider i s: Loida Estrada MD Please call your health care provider if: - you feel you are getting w orse or having an increase in problems - fever greater than 101 deg flory - increasing shortness of br eath - any signs of infection (in creasing redness, swelling, tenderness, warmth, change in appearance, or increased drainage) - blood in your urine or sto ol - coughing or vomiting blood - nausea (upset stomach) and vomiting and/or diarrhea that will not stop - severe pain that is not re lieved by medicine, rest or ice Call 911 if you feel you are having a medical emergency. [facility] You were in the hospital fo r chemotherapy colitis Pending Studies Lab results that may not be resulted at time of discharge: (From admission through now) Start Ordered 02/06/222029 BLOOD CULTURE X2 (Laboratory - [facility]) Q1MIN, STAT Start Priority Status 02/06/222029 STAT Prelimina ry result Details 02/06/222034 STAT Prelimina ry result Details 02/06/222022 Total time spent on discharg e coordination: 34 minutes. Patient was seen and examined today. Stephan Hill MD Hospitalist, [facility] ? ? [phone] Stephan Hill MD .. .................. 02/08/2022 8:01 AM 02/06/2022 Travel from Last 3 Months Immunizations Name Administration Dates Next Due COVID-19 vaccine (FOODit 06/24/2021, 10/28/2020, 30mcg/0.3mL) PF, MDV Hepatitis B (Adult) 09/24/1995, 06/18/1995, 03/25/1995 Influenza, High-dose Inactivated 06/16/2019, 06/03/2018 Influenza, IIV3 (Age >=3 years) 05/06/2013, 05/17/2011, 07/03 Influenza, IIV4 05/25/2017 Influenza, Inactivated AIIV4 (Age 65+ 05/10/2021, 05/17/2020 Years) Preserv Free Pneumococcal Poly,23-Valent (Pneumovax) 06/03/2018 Pneumococcal conj 13-Valent (Prevnar 05/25/2017 13) Td (Age >=7 Years) 01/10/2003 Tdap 11/15/2021, 06/09/2013 Zoster (Shingrix-RZV, recombinant) 03/21/2019, 01/03/2019 Zoster (Zostavax-ZVL, live) 05/06/2013 Family History Medical History Relation Name Comments Other Brother 4 EPILEPSY, DVT Heart Disease Father Other Father COPD Diabetes Maternal Grandfather Cancer-colon Maternal Grandmother Cancer-colon Mother Heart Disease Paternal Grandfather Cancer-breast Paternal Grandmother Hypertension Sister 3 Relation Name Status Comments Brother 1 Alive Brother 2 Alive Brother 3 Alive Brother 4 Father Maternal Grandfather Maternal Grandmother Mother Paternal Grandfather Paternal Grandmother Sister 1 Alive Sister 2 Sister 3 Son 1 Alive Son 2 Alive Social History Tobacco Use Types Packs/Day Years Used Date Never Smoker Smokeless Tobacco: Never Used Tobacco Cessation: Counseling Given: Yes Alcohol Use Standard Drinks/Week Comments Yes 0 (1 standard drink = 0.6 oz pure alcoho l) occasional Sex Assigned at Date Recorded Not on file Obstetrics History Comments ADOPTED 2 CHILDREN Last Filed Vital Signs Vital Sign Reading Time Taken Comments Blood Pressure 128/70 02/08/2022 9:00 AM CDT Pulse 67 02/08/2022 9:00 AM CDT Temperature 37 ??C (98.6 ??F) 02/08/2022 9:00 AM CDT Respiratory Rate 18 02/08/2022 9:00 AM CDT Oxygen Saturation 98% 02/08/2022 9:00 AM CDT Inhaled Oxygen Concentration - - Weight 92.4 kg (203 lb 12.8 oz) 02/07/2022 1:57 AM CDT Height 165.1 cm (5' 5) 02/07/2022 1:59 AM CDT Body Mass Index 33.91 02/07/2022 1:57 AM CDT Plan of Treatment Health Maintenance Due Date Last Done Comments COVID-19 vaccine series (4 09/16/2021 06/24/2021, , - Booster for Pfizer 10/07/2020 series) Mammogram for age 45-75 10/05/2021 10/05/2020, 03/21/2019, 03/16/2018, Additional history exists Medicare Wellness for age 0310/10/2021 10/10/2020, 02/28/2019 65+ Influenza for age 65+ 04/03/2022 05/10/2021, 05/17/2020, 06/16/2019, Additional history exists BMI (ht and wt on same day) 09/20/2022 09/20/2021, 07/08/20 21, for age 18+ 10/10/2020, Additional history exists Depression screening for 02/12/2023 02/12/2022, 10/10/2020, age 12+ 10/10/2020, Additional history exists Lipids for age 45-75 04/05/2024 04/05/2019 Colonoscopy through age 75 10/05/2024 10/06/2019, 6, 09/20/2015, Additional history exists Fecal testing non-DNA 10/05/2024 08/23/2019 Postponed from (FIT,FOBT,iFOBT) for age 01 021 (Other) 45-75 Tetanus booster 11/16/2031 11/15/2021, 06/09/2013, 01/10/2003 Pneumococcal series for age Completed 06/03/2018, 05/25/20 17 65+ Zoster (shingles) series Completed 03/21/2019, 01/03/2019, for age 50+ 05/06/2013 DEXA/DXA scan for age 65+ Completed 10/10/2020 Hepatitis C screening for Completed 10/10/2020 age 18-79 Tdap Completed 11/15/2021, 06/09/2013 Medical Devices Implanted Type Area Life Skills Specialist Device Shelf Model / Identifier Expiration Serial / Lot Date Sling Pelvic Advantage Fit Blue - [id number] N/A: B[employer] 05/26/2024 [id number] / Implanted: Qty: 1 on 07/11/2021 by Lionel Mathews MD at [facility] / [id number] Procedures Procedure Name Priority Date/Time Associated Comments Diagnosis MAGNESIUM Early AM 02/08/2022 5:45 AM Results f or this CDT procedure are i n the results section. POTASSIUM Early AM 02/08/2022 5:45 AM Results f or this CDT procedure are i n the results section. MAGNESIUM Timed 02/07/2022 6:59 PM Results f or this CDT procedure are i n the results section. STOOL PATHOGEN STAT 02/07/2022 7:59 AM Results for this MULTIPLEX PCR PANEL CDT procedur e are in the results section. POTASSIUM Early AM 02/07/2022 5:43 AM Results f or this CDT procedure are i n the results section. PLATELET COUNT Early AM 02/07/2022 5:43 AM Results for this CDT procedure are i n the results section. HEMOGLOBIN Early AM 02/07/2022 5:43 AM Results f or this CDT procedure are i n the results section. COVID 19 Timed 02/07/2022 1:52 AM Results f or this CDT procedure are i n the results section. COVID 19 COLLECTION Today 02/07/2022 1:52 AM Re sults for this CDT procedure are i n the results section. UA W/ SEDIMENT EXAM STAT 02/06/2022 11:08 Resu lts for this REFLEXED PER CRITERIA PM CDT proced ure are in the results section. CT ABDOMEN PELVIS W STAT 02/06/2022 10:55 Resu lts for this PM CDT procedure are i n the results section. C-REACTIVE PROTEIN MIRIAM 02/06/2022 9:15 PM Res ults for this CDT procedure are i n the results section. PHOSPHORUS MIRIAM 02/06/2022 9:15 PM Results f or this CDT procedure are i n the results section. MAGNESIUM MIRIAM 02/06/2022 9:15 PM Results f or this CDT procedure are i n the results section. BASIC METABOLIC PANEL STAT 02/06/2022 9:15 PM Results for this CDT procedure are i n the results section. BLOOD CULTURE STAT 02/06/2022 8:40 PM Results for this CDT procedure are i n the results section. RED CELL MORPHOLOGY STAT 02/06/2022 8:33 PM Re sults for this CDT procedure are i n the results section. PLATELET ESTIMATE STAT 02/06/2022 8:33 PM Resu lts for this CDT procedure are i n the results section. MANUAL DIFFERENTIAL STAT 02/06/2022 8:33 PM Re sults for this CDT procedure are i n the results section. CBC WITH AUTO STAT 02/06/2022 8:33 PM Results for this DIFFERENTIAL CDT procedure are i n the results section. PROCALCITONIN STAT 02/06/2022 8:33 PM Results for this CDT procedure are i n the results section. LIPASE STAT 02/06/2022 8:33 PM Results f or this CDT procedure are i n the results section. HEPATIC FUNCTION PANEL STAT 02/06/2022 8:33 PM Results for this CDT procedure are i n the results section. BLOOD CULTURE STAT 02/06/2022 8:33 PM Results for this CDT procedure are i n the results section. PROTIME-INR STAT 02/06/2022 8:33 PM Results f or this CDT procedure are i n the results section. CBC WITH AUTO STAT 02/06/2022 8:33 PM Results for this DIFFERENTIAL CDT procedure are i n the results section. LACTATE VENOUS STAT 02/06/2022 8:33 PM Results for this CDT procedure are i n the results section. from Last 3 Months Results POTASSIUM (02/08/2022 5:45 AM CDT)Only the most recent of2 resultswithin the time period is included. athologist Signature POTASSIUM 3.7 3.5 - 5.0 02/08/2022 [place] mmol/L 6:30 AM CDT [facility] Specimen Anatomical Collection Method / Collection Time Recei mary jo Time (Source) Location / Volume Laterality Blood BLOOD SPECIMEN / Venipuncture / 02/08/2022 5:45 2021 6:06 Unknown Unknown AM CDT AM CDT Heaven Kiser RN CHEMISTRY Performing Organization Address City/State/ZIP Code Phon e Number [facility] [address] [place] [address] MAGNESIUM (02/08/2022 5:45 AM CDT)Only the most recent of3 resultswithin the time period is included. P athologist Signature MAGNESIUM 1.9 1.6 - 2.6 02/08/2022 [place] mg/dL 6:37 AM CDT [facility] Specimen Anatomical Collection Method / Collection Time Recei mary jo Time (Source) Location / Volume Laterality Blood BLOOD SPECIMEN / Venipuncture / 02/08/2022 5:45 2021 6:06 Unknown Unknown AM CDT AM CDT Ju Morrow RN CHEMISTRY Performing Organization Address City/State/ZIP Code Phon e Number [facility] [address] [place], [place] [id number] STOOL PATHOGEN MULTIPLEX PCR PANEL (02/07/2022 7:59 AM CDT) Patholo gist Method Time Signature Campylobacter NOT NOT 02/07/2022 [facility] Detected Detected 5:58 PM CDT LAB[facility]ATORY[facility] Salmonella NOT NOT 02/07/2022 [facility] Detected Detected 5:58 PM CDT [facility] Shigella NOT NOT 02/07/2022 [facility] Detected Detected 5:58 PM CDT [facility] Vibrio NOT NOT 02/07/2022 [facility] Detected Detected 5:58 PM CDT [facility] Yersinia NOT NOT 02/07/2022 [facility] Enterocolitica Detected Detected 5:58 PM CDT [facility] Shiga Toxin 1 NOT NOT 02/07/2022 [facility] Detected Detected 5:58 PM CDT [facility] Shiga Toxin 2 NOT NOT 02/07/2022 [facility] Detected Detected 5:58 PM CDT [facility] Norovirus NOT NOT 02/07/2022 [facility] Detected Detected 5:58 PM CDT [facility] Rotavirus NOT NOT 02/07/2022 [facility] Detected Detected 5:58 PM CDT [facility] Specimen Anatomical Collection Method Collection Time Receive d Time (Source) Location / / Volume Laterality Stool STOOL SPECIMEN / Non-Blood / 02/07/2022 7:59 AM 02/07 8:05 Unknown Unknown CDT AM CDT Narrative [facility] - 02/07/2022 5:58 PM CDT This test is a Culture Independent Diagn ostic Test (CIDT) therefore isolates are not available for susceptibility testing. ?? Antibiotic treatment is often contraindicated and may be detrimental in cases of enter ic infections, thus routine susceptibility testing is not recommended. Leena Taylor MD MICROBIOLOGY Performing Organization Address [facility]/ZIP Code Phon e Number [facility] [id number] [place] [address] LABORATORY-CENTRAL [address] LABORATORY (ABNORMAL) Platelets AM (02/07/2022 5:43 AM CDT) athologist Signature PLATELET COUNT 84 (L) 140 - 440 02/07/2022 [place] thou/cu mm 6:06 AM CDT [facility] MPV 10.9 6.5 - 11.0 02/07/2022 [place] fL 6:06 AM CDT [facility] Specimen Anatomical Collection Method / Collection Time Recei mary jo Time (Source) Location / Volume Laterality Blood BLOOD SPECIMEN / Venipuncture / 02/07/2022 5:43 2021 5:57 Unknown Unknown AM CDT AM CDT Lionel Lyn MD HEMATOLOGY Performing Organization Address [facility]/ZIP Code Phon e Number [facility] [address] [place] [address] (ABNORMAL) Hemoglobin (02/07/2022 5:43 AM CDT) athologist Signature HEMOGLOBIN 8.1 (L) 12.0 - 02/07/2022 [place] 16.0 g/dL 6:06 AM CDT [facility] MCV 100 80 - 100 02/07[facility] [facility] f[facility] 6:06 AM CDT [facility] Specimen Anatomical Collection Method / Collection Time Recei mary jo Time (Source) Location / Volume Laterality Blood BLOOD SPECIMEN / Venipuncture / 02/07/2022 5:43 2021 5:57 Unknown Unknown AM CDT AM CDT Lionel Lyn MD HEMATOLOGY Performing Organization Address [facility]/ZIP Code Phon e Number [facility] [address] [place] [address] COVID 19 (02/07/2022 1:52 AM CDT) [facility] Method Time Signature COVID 19 Not detected Not detected 02/07/2022 [facility] 2:16 AM CDT [facility] Specimen Anatomical Location / Collection Method Collection Evert e Received Time (Source) Laterality / Volume Other SPECIMEN FROM Non-Blood / 02/07/2022 1:52 02/07/2022 1:55 NASOPHARYNGEAL Unknown AM CDT AM CDT STRUCTURE / Unknown Narrative [facility] - 2:16 AM CDT This test has been authorized by FDA und an Emergency Use Authorization (EUA). This test is only authorized for the duration of time the declaration that circumstances exist justifying the authorization of th e emergency use of in vitro diagnostic tests for detection of SARS-CoV-2 virus and/or diagnosis of COVID-19 infection under section 564(b)(1) of the Act, 21 U.S.C. 360bbb-3(b) (1), unless the authorization is terminated or revoked sooner. Lionel Lyn MD MICROBIOLOGY Performing Organization Address [facility] Phon e Number [facility] [address] [place], [place] [id number] COVID 19 COLLECTION (02/07/2022 1:52 AM CDT) [facility] TESTING [facility] 02/07/2022 [place] [facility] Laboratory 1:55 AM CDT [facility] Comment: Specimen submitted to [facility] for testing. Specimen Anatomical Location / Collection Method Collection Evert e Received Time (Source) Laterality / Volume Other SPECIMEN FROM Non-Blood / 02/07/2022 1:52 02/07/2022 1:55 NASOPHARYNGEAL Unknown AM CDT AM CDT STRUCTURE / Unknown Lionel Lyn MD SEND OUTS Performing Organization Address [facility] Phon e Number [facility] [address] [place] [address] URINALYSIS W REFLEX MICROSCOPIC IF POSITIVE (02/06/2022 11:08 PM CDT) [facility] Signature COLOR Yellow Yellow Color 02/06/2022 [place] 11:11 PM [facility] CLARITY Clear Clear 02/06/2022 [place] Clarity 11:11 PM [facility] SPECIFIC 1.010 1.010, 02/06/2022 [place] GRAVITY,URINE 1.015, 11:11 PM [facility] 1.020, 1.025 LABORATORY PH,URINE 6.0 6.0, 7.0, 02/06/2022 [place] 8.0, 5.5, 11:11 PM [facility] 6.5, 7.5, LABORATORY 8.5 UROBILINOGEN, Normal Normal EU/dl 02/06/[address] [facility] 11:11 PM [facility] PROTEIN, Negative Negative 02/06/[address] [facility] URINE mg/dL 11:11 PM [facility] GLUCOSE, Negative Negative 02/06/[address] [facility] UR[facility] mg/dL 11:11 PM [facility] KETONES,URINE Negative Negative 02/06/[address] [facility] mg/dL 11:11 PM [facility] BILIRUBIN,URI Negative Negative 02/06/[address] [facility] NE 11:11 PM [facility] OCCULT Negative Negative 02/06/[address] [facility] BLOOD,URINE 11:11 PM [facility] NITRITE Negative Negative 02/06/[address] [facility] 11:11 PM [facility] LEUKOCYTE Negative Negative 02/06/[address] [facility] ESTERASE 11:11 PM [facility] Specimen Anatomical Collection Method Collection Time Receive d Time (Source) Location / / Volume Laterality Urine URINE SPECIMEN / Non-Blood / 02/06/2022 11:08 022 Unknown Unknown PM CDT 11:08 PM CDT Leena Taylor MD URINE Performing Organization Address City/State/ZIP Code Phon e Number [facility] [address] [place] [address] CT ABDOMEN PELVIS W (02/06/2022 10:55 PM CDT) Anatomical Region Laterality Modality Abdomen, Pelvis, AORTA, LIVER, SPLEEN Co mputed Tomography Specimen (Source) Anatomical Collection Method Collection Time Re ceived Time Location / / Volume Laterality 02/06/2022 11:28 PM CDT Impressions 02/06/2022 11:[address] of the pelvis shows severe colitis of the sigmoid colon and moderate proctitis, nonspecific. Moderate diverticulosis of the proximal sigmoid colon without evidence of diverticulitis. Status post hysterectomy. CT of the abdomen shows moderate diverti culosis of the descending colon with no sign of diverticulitis. Mild splenomegaly of uncertain etiology. 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 No sign of any retroperitoneal lymphadenopathy on today`s study. Please note that all CT scans at this [facility] use dose modulation, iterative reconstruction, and/or weight-based dosing when appropriate to reduce radiation dose to as low as reasonably achievable. Dictated by Kemar Hughes MD @ 02/06/2022 1 1:28:29 PM (Electronically Signed) Narrative 02/06/2022 11:28 PM CDT For Patients: ??As a result of the Cures Act, medical imaging exams and procedure report s are released immediately into your [facility] medical record. ??You may view this report before your referring provider. ??If you have questions, please contact your health care provider. INDICATION: Acute, nonlocalized abdominal pain. COMPARISON: None available TECHNIQUE: CT examination of the abdomen and pelvis was performed with the uneventful intravenous administration of 100 cc of Omnipaque 300 while 3 mm thick axial sections were obtained from the lung bases through the pubic symphysis. Oral contrast was not administered. ?? Please note that all CT scans at this [facility] use dose modulation, iterative reconstruction, and/or weight-based dosing when appropriate to reduce radiation dose to as low as reasonably achievable. FINDINGS: In the abdomen, the liver, pancreas, and adrenals are normal in appearance. The spleen is mildly enlarged with no si gn of mass, measuring 13.4 centimeters in length. The kidneys are normal in appearance. The gallbladder is normal in appearance. The abdominal aorta is normal in caliber with no sign of dilatation. Numerous small surgical clips are seen p osterior and to the left of the abdominal aorta. This may be from previous lymph node dissection. Recommend correlation with the clinical history. There is no sign of retroperitoneal mass or adenopathy. The stomach, loops of small bowel, and r ight colon in the abdomen are normal in appearance. There is moderate diverticulosis of the descending colon with no sign of diverticulitis. In the pelvis, the appendix is nonvisual ized, but there is no sign of an inflammatory process in the area of the appendix. The loops of small bowel and rectum in t he pelvis are normal in appearance. There is prominent mucosal thickening of the sigmoid colon extending through the rectum, with a moderate pericolonic inflammatory stranding. Mild there is mild diverticulosis of the proximal sigmoid col on, the length of involvement is much gr eater than would be expected from diverticulitis. The findings are that of a prominence, nonspecific sigmoid colitis and proctitis. This does not appear to be isc hemic, no sign of stenosis of the celiac axis, SMA, or TIM. The uterus is absent and the adnexal reg ions are normal in appearance. The urinary bladder is normal in appeara nce. There is no sign of pelvic or inguinal m ass or adenopathy. There is no sign of free air or free flu id in the abdomen or pelvis. The lung bases are clear. There is mild anterior wedging of L1 and L2, mild compression fractures of indeterminate age. There is minimal posterior subluxation o f L2 on L3 which is probably degenerative, associated with moderate L2-3 disc degenerative disease. There is mild L1-2 disc degenerative dis ease. The rest of the intervertebral discs in the lumbar spine are normal in height. Procedure Note Kemar Hughes MD - 02/06/2022Fo rmatting of this note might be different from the original. For Patients: As a result of the nt[place] Cures Act, medical imaging exams and procedure reports are released immediately into your electronic medical record. You may view this report before your referring provider. If you have questions, please contact [facility] care provider. INDICATION: Acute, nonlocalized abdominal pain. COMPARISON: None available TECHNIQUE: CT examination of the abdomen and pelvis was performed with the uneventful intravenous administration of 100 cc of Omnipaque 300 while 3 mm thick axial sections were obtained from the lung bases through the pubic symphysis. Oral contrast was not adminis tered. Please note that all CT scans at this [facility] use dose modulation, iterative reconstruction, and/or weight-based dosing when appropriate to reduce radiation dose to as low as reasonably achievable. FINDINGS: In the abdomen, the liver, pancreas, and adrenals are normal in appearance. The spleen is mildly enlarged with no si gn of mass, measuring 13.4 centimeters in length. The kidneys are normal in appearance. The gallbladder is normal in appearance. The abdominal aorta is normal in caliber with no sign of dilatation. Numerous small surgical clips are seen p osterior and to the left of the abdominal aorta. This may be from previous lymph node dissection. Recommend correlation with the clinical history. There is no sign of retroperitoneal mass or adenopathy. The stomach, loops of small bowel, and r ight colon in the abdomen are normal in appearance. There is moderate diverticulosis of the descending colon with no sign of diverticulitis. In the pelvis, the appendix is nonvisual ized, but there is no sign of an inflammatory process in the area of the appendix. The loops of small bowel and rectum in t he pelvis are normal in appearance. There is prominent mucosal thickening of the sigmoid colon extending through the rectum, with a moderate pericolonic inflammatory stranding. Mild there is mild diverticulosis of the proximal sigmoid colon, the length of involvement is much greater th an would be expected from diverticulitis. The findings are that of a prominence, nonspecific sigmoid colitis and proctitis. This does not appear to be ischemic, no sign of stenosis of the celiac axis, SMA, or TIM . The uterus is absent and the adnexal reg ions are normal in appearance. The urinary bladder is normal in appeara nce. There is no sign of pelvic or inguinal m ass or adenopathy. There is no sign of free air or free flu id in the abdomen or pelvis. The lung bases are clear. There is mild anterior wedging of L1 and L2, mild compression fractures of indeterminate age. There is minimal posterior subluxation o f L2 on L3 which is probably degenerative, associated with moderate L2-3 disc degenerative disease. There is mild L1-2 disc degenerative dis ease. The rest of the intervertebral discs in the lumbar spine are normal in height. IMPRESSION: CT of the pelvis shows severe colitis of the sigmoid colon and moderate proctitis, nonspecific. Moderate diverticulosis of the proximal sigmoid colon without evidence of diverticulitis. Status post hysterectomy. CT of the abdomen shows moderate diverti culosis of the descending colon with no sign of diverticulitis. Mild splenomegaly of uncertain etiology. 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 No sign of any retroperitoneal lymphadenopathy on today`s study. Please note that all CT scans at this [facility] use dose modulation, iterative reconstruction, and/or weight-based dosing when appropriate to reduce radiation dose to as low as reasonably achievable. Dictated by Kemar Hughes MD @ 02/06/2022 1 1:28:29 PM (Electronically Signed) Leena Taylor MD CT (ABNORMAL) CRP (02/06/2022 9:15 PM CDT) Analysis Performed At [facility] Time Signature C-REACTIVE 0.66 (H) <0.50 02/07/2022 [place] PROTEIN mg/dL 4:54 AM T [facility] Specimen Anatomical Collection Method / Collection Time Recei mary jo Time (Source) Location / Volume Laterality Blood BLOOD SPECIMEN / Venipuncture / 02/06/2022 9:15 2021 9:18 Unknown Unknown PM CDT PM CDT Lionel Lyn MD CHEMISTRY Performing Organization Address [facility]/ZIP [facility] Phon e Number [facility] [address] [place] [address] Phosphorus FOR ADD ON (02/06/2022 9:15 PM CDT) P athologist Signature PHOSPHORUS 3.3 2.3 - 4.7 02/07/2022 [place] mg/dL 12:45 AM [facility] Specimen Anatomical Collection Method / Collection Time Recei mary jo Time (Source) Location / Volume Laterality Blood BLOOD SPECIMEN / Venipuncture / 02/06/2022 9:15 2021 9:18 Unknown Unknown PM CDT PM CDT Lionel Lyn MD CHEMISTRY Performing Organization Address [facility]/ZIP [facility] Phon e Number [facility] [address] [place] [address] (ABNORMAL) BASIC METABOLIC PANEL (02/06/2022 9:15 PM CDT) Analysis Performed At [facility] Time Signature SODIUM 139 135 - 145 02/06/2022 [place] mmol/L 9:37 PM T [facility] POTASSIUM 3.3 (L) 3.5 - 5.0 02/06/2022 [place] mmol/L 9:37 PM [facility] CHLORIDE 106 98 - 110 02/06/2022 [place] mmol/L 9:37 PM [facility] CO2,TOTAL 24 21 - 31 02/06/2022 [place] mmol/L 9:37 PM [facility] ANION GAP 9 5 - 18 02/06/2022 [place] 9:37 PM [facility] GLUCOSE 97 65 - 100 02/06/2022 [place] mg/dL 9:37 PM [facility] CALCIUM 8.8 8.5 - 10.5 02/06/2022 [place] mg/dL 9:37 PM [facility] BUN 10 8 - 25 02/06/2022 [place] mg/dL 9:37 PM [facility] CREATININE 0.71 0.57 - 02/06/2022 [place] 1.11 mg/dL 9:37 PM [facility] BUN/CREAT RATIO 14 10 - 20 02/06/[address] [facility] 9:37 PM [facility] eGFR >90 >90 02/06/2022 [facility] mL/min/1.7 9:37 PM [facility] 3m2 LABORATORY Comment: As of 2021, eGFR is calcu lated by the CKD-EPI creatinine equation without race adjustment. eGFR can be inf luenced by muscle mass, exercise, and diet. The reported eGFR is an estimation only and is only applicable if the renal function is stable. Specimen Anatomical Collection Method / Collection Time Recei mary jo Time (Source) Location / Volume Laterality Blood BLOOD SPECIMEN / Venipuncture / 02/06/2022 9:15 2021 9:18 Unknown Unknown PM CDT PM CDT Leena Taylor MD CHEMISTRY Performing Organization Address City/State/ZIP Code Phon e Number [facility] [address] [place] [address] BLOOD CULTURE X2 (02/06/2022 8:40 PM CDT)Only the most recent of2 resultswithin the time period is included. P athologist Signature CULTURE No Growth. 02/11/[address] [facility] 10:09 PM [facility] Specimen Anatomical Collection Method Collection Time Receive d Time (Source) Location / / Volume Laterality Blood BLOOD SPECIMEN / Butterfly / 02/06/2022 8:40 PM 02/06 8:44 Unknown Unknown CDT PM CDT Leena Taylor MD MICROBIOLOGY Performing Organization Address City/State/ZIP Code Phon e Number [facility] [address] [place] [address] (ABNORMAL) CBC WITH AUTO DIFFERENTIAL (02/06/2022 8:33 PM CDT) [facility] Time Signature WHITE BLOOD 8.9 4.5 - 11.0 02/06/2022 [place] COUNT thou/cu mm 9:31 PM [facility] RED BLOOD COUNT 2.94 (L) 4.00 - 02/06/2022 [place] 5.20 9:31 PM [facility] mil/cu mm LABORATORY HEMOGLOBIN 9.1 (L) 12.0 - 02/06/2022 [place] 16.0 g/dL 9:31 PM [facility] HEMATOCRIT 29.1 (L) 33.0 - 02/06/2022 [place] 51.0 % 9:31 PM [facility] MCV 99 80 - 100 02/06/[address] [facility] fL 9:31 PM [facility] MCH 31.0 26.0 - 02/06/2022 [place] 34.0 pg 9:31 PM [facility] MCHC 31.3 (L) 32.0 - 02/06/2022 [place] 36.0 g/dL 9:31 PM [facility] RDW 17.7 (H) 11.5 - 02/06/2022 [place] 15.5 % 9:31 PM [facility] PLATELET COUNT 91 (L) 140 - 440 02/06/[address] [facility] thou/cu mm 9:31 PM [facility] MPV 10.9 6.5 - 11.0 02/06/2022 [place] fL 9:31 PM [facility] Specimen Anatomical Collection Method Collection Time Receive d Time (Source) Location / / Volume Laterality Blood BLOOD SPECIMEN / Butterfly / 02/06/2022 8:33 PM 02/06 8:44 Unknown Unknown CDT PM CDT Leena Taylor MD HEMATOLOGY Performing Organization Address [facility]/ZIP Code Phon e Number [facility] [address] [place] [address] (ABNORMAL) RED CELL MORPHOLOGY (02/06/2022 8:33 PM CDT) [facility] Time Signature ELLIPTOCYTES Few 02/06/2022 [place] 9:30 PM CDT [facility] TEARDROP CELLS Few 02/06/2022 [place] 9:30 PM T [facility] RBC COMMENT Present RBC 02/06/2022 [place] (A) morphology 9:30 PM [facility] normal, RBC LABORATORY morphology within normal limits for newborns. Specimen Anatomical Collection Method Collection Time Receive d Time (Source) Location / / Volume Laterality Blood BLOOD SPECIMEN / Butterfly / 02/06/2022 8:33 PM 02/06 8:44 Unknown Unknown CDT PM CDT Leena Taylor MD HEMATOLOGY Performing Organization Address City/[facility]/ZIP Code Phon e Number [facility] [address] [place] [address] (ABNORMAL) PLATELET ESTIMATE (02/06/2022 8:33 PM CDT) [facility] Time Signature PLATELET Decreased (A) Adequate, No 02/06/2022 [place] ESTIMATE estimate 9:30 PM [facility] Specimen Anatomical Collection Method Collection Time Receive d Time (Source) Location / / Volume Laterality Blood BLOOD SPECIMEN / Butterfly / 02/06/2022 8:33 PM 02/06 8:44 Unknown Unknown CDT PM CDT Leena Taylor MD HEMATOLOGY Performing Organization Address City/[facility]/ZIP Code Phon e Number [facility] [address] [place] [address] LACTATE VENOUS (02/06/2022 8:33 PM CDT) athologist Signature LACTATE,VENOUS 1.3 0.5 - 2.0 02/06/2022 [place] mmol/L 9:05 PM [facility] Specimen Anatomical Collection Method Collection Time Receive d Time (Source) Location / / Volume Laterality Blood BLOOD SPECIMEN / Butterfly / 02/06/2022 8:33 PM 02/06 8:44 Unknown Unknown CDT PM CDT Leena Taylor MD CHEMISTRY Performing Organization Address City/State/ZIP Code Phon e Number [facility] [address] [place] [address] PROCALCITONIN (02/06/2022 8:33 PM CDT) P athologist Signature PROCALCITONIN 0.08 <0.50 [facility] ng/ml 9:31 PM CDT [facility] Specimen Anatomical Collection Method Collection Time Receive d Time (Source) Location / / Volume Laterality Blood BLOOD SPECIMEN / [place]fly / 02/06/2022 8:33 PM 02/06 8:44 Unknown Unknown CDT PM CDT Narrative [facility] - 9:31 PM CDT Procalcitonin for initial assessment of Lower Respiratory Tract Infection: Results Interpretation <0.1 ng/mL ?Antibiotics strong ly discouraged.* 0.1 - 0.25 ng/mL ??Antibiotics discourag ed. * 0.26 - 0.50 ng/mL Antibiotics encouraged . >0.50 ng/mL ? Antibiotics strongl y encouraged. *If suspicion of infection high, clinica lly unstable, or immunosuppressed: initiate antibiotics. Repeat PCT testing in 6-24 hours. Repeat PCT testing every 1-2 days whil e on antibiotics to assess response to therapy. Procalcitonin for initial assessment of severe sepsis risk: Results Interpretation < 0.5 ng/mL Associated with a low risk f or progression to severe sepsis/septic shock. > 2.0 ng/mL Associated with a high risk for progression to severe sepsis/septic shock. Note: PCT levels below 0.5 ng/mL do not exclude an infection, because localized infections may also be associated with such low levels. If the PCT measurement is done very early after the systemic infec tion process has started (usually <6 polina rs), these values may still be low. PCT levels between 0.5 ng/mL and 2.0 ng/ mL should be interpreted in the context of the specific clinical background and conditions of the individual patient. It is recommended to re-test PCT within 6-24 hours if any concentrations <2.0 ng/mL are obtained. Leena Taylor MD SEND OUTS Performing Organization Address City/State/ZIP Code Phon e Number [facility] [address] [place] [address] (ABNORMAL) MANUAL DIFFERENTIAL (02/06/2022 8:33 PM CDT) [facility] Time Signature % NEUTROPHILS 68.0 % 02/06/2022 [place] 9:30 PM [facility] % LYMPHOCYTES 18.0 % 02/06/2022 [place] 9:30 PM [facility] % MONOCYTES 14.0 % 02/06/2022 [place] 9:30 PM [facility] % EOSINOPHILS 0.0 % 02/06/2022 [place] 9:30 PM [facility] % BASOPHILS 0.0 % 02/06/2022 [facility] 9:30 PM [facility] % METAMYELOCYTES 0.0 <0.2 % 02/06/2022 [facility] 9:30 PM [facility] % MYELOCYTES 0.0 <0.2 % 02/06/2022 [facility] 9:30 PM [facility] % PROMYELOCYTES 0.0 <0.2 % 02/06/2022 [facility] 9:30 PM [facility] % BLASTS 0.0 <0.2 % 02/06/2022 [facility] 9:30 PM [facility] % OTHER CELLS 0.0 % 02/06/2022 [facility] 9:30 PM [facility] % PLASMA CELLS 0.0 % 02/06/2022 [facility] 9:30 PM [facility] NEUTROPHILS 6.1 1.7 - 7.0 02/06/[address] [facility] ABSOLUTE thou/cu 9:30 PM [facility] mm LABORATORY LYMPHOCYTES 1.6 0.9 - 2.9 02/06/[address] [facility] [address] [facility] ABSOLUTE thou/cu 9:30 PM [facility] mm LABORATORY MONOCYTES ABSOLUTE 1.2 (H) <0.9 02/06/2022 [place] thou/cu 9:30 PM T [facility] mm LABORATORY EOSINOPHILS 0.0 <0.5 02/06/2022 [place] ABSOLUTE thou/cu 9:30 PM [facility] mm LABORATORY BASOPHILS ABSOLUTE 0.0 <0.3 02/06/2022 [place] thou/cu 9:30 PM T [facility] mm LABORATORY Specimen Anatomical Collection Method Collection Time Receive d Time (Source) Location / / Volume Laterality Blood BLOOD SPECIMEN / Butterfly / 02/06/2022 8:33 PM 02/06 8:44 Unknown Unknown CDT PM CDT Leena Taylor MD HEMATOLOGY Performing Organization Address City/[facility] Code Phon e Number [facility] [address] [place] [address] PROTIME-INR (02/06/2022 8:33 PM CDT) athologist Signature INR 1.1 <1.3 02/06/2022 [facility] 8:54 PM [facility] PROTIME 13.8 11.8 - 13.9 02/06/2022 [facility] sec 8:54 PM [facility] Specimen Anatomical Collection Method Collection Time Receive d Time (Source) Location / / Volume Laterality Blood BLOOD SPECIMEN / Butterfly / 02/06/2022 8:33 PM 02/06 8:44 Unknown Unknown CDT PM CDT Narrative [facility] - 8:54 PM CDT ?Therapeutic Range 2.0-3.0 for most anticoagulated patients 2.5-3.5 or 4.0 for high risk patients The INR is only used for patients on sta ble oral anticoagulant therapy. It makes no significant contribution to the diagnosis or treatment of patients whose Protime is prolonged f or other reasons. INR results are increased when heparin l evels exceed 1.0 U/mL, which corresponds to an aPTT >125 seconds if the patient is on UFH. Leena Taylor MD HEMATOLOGY Performing Organization Address [facility]/ZIP Code Phon e Number [facility] [address] [place] [address] LIPASE (02/06/2022 8:33 PM CDT) P athologist Signature LIPASE 20.3 8.0 - 78.0 02/06/2022 [place] IU/L 9:07 PM [facility] Specimen Anatomical Collection Method Collection Time Receive d Time (Source) Location / / Volume Laterality Blood BLOOD SPECIMEN / Butterfly / 02/06/2022 8:33 PM 02/06 8:44 Unknown Unknown CDT PM CDT Leena Taylor MD CHEMISTRY Performing Organization Address City/State/ZIP Code Phon e Number [facility] [address] [place] [address] (ABNORMAL) HEPATIC FUNCTION PANEL (02/06/2022 8:33 PM CDT) Patholo gist Method Time Signature ALBUMIN 3.5 3.2 - 4.6 02/06/2022 [place] g/dL 9:07 PM [facility] PROTEIN,TOTAL 5.6 (L) 6.0 - 8.0 02/06/2022 [place] g/dL 9:07 PM [facility] GLOBULIN 2.1 2.0 - 3.7 02/06/2022 [place] g/dL 9:07 PM [facility] A/G RATIO 1.7 1.0 - 2.0 02/06/2022 [place] 9:07 PM [facility] BILIRUBIN,TOTAL 0.3 0.2 - 1.2 02/06/2022 [place] mg/dL 9:07 PM [facility] BILIRUBIN,DIRECT 0.1 0.1 - 0.5 02/06/2022 [place] mg/dL 9:07 PM [facility] BILIRUBIN,INDIRE 0.2 0.2 - 0.8 02/06/[address] [place] [address] mg/dL 9:07 PM [facility] ALK PHOSPHATASE 89 50 - 136 02/06/2022 [place] IU/L 9:07 PM [facility] ALT (SGPT) 9 8 - 45 02/06/2022 [place] IU/L 9:07 PM [facility] AST (SGOT) 12 2 - 40 02/06/2022 [place] IU/L 9:07 PM CDT [facility] Specimen Anatomical Collection Method Collection Time Receive d Time (Source) Location / / Volume Laterality Blood BLOOD SPECIMEN / Butterfly / 02/06/2022 8:33 PM 02/06 8:44 Unknown Unknown CDT PM CDT Leena Taylor MD CHEMISTRY Performing Organization Address City/State/ZIP Code Phon e Number [facility] [address] [place] [address] from Last 3 Months Insurance Payer Benefit Plan / Subscriber ID Effective Dates Phone Addre ss Type Group MEDICARE PART B MEDICARE PART B [id number] 2015-Presen ATTN: CLAIMS - HB USE ONLY HB ONLY t [address] [facility] [address] MEDICARE PART A MEDICARE PART A [id number] 2015-Presen ATTN: CLAIMS - HB USE ONLY HB ONLY t [address] [facility] [place] [address] MEDICARE - PB MEDICARE PB [id number] 2016-Presen ATTN : CLAIMS USE ONLY ONLY t [address] [facility] [place] [address] [place] [id number] 2014-Presen [address] [place] [facility] [address] [place] [id number] 2020-Presen [address] [place] [address] [place]on Pavon Personal/Famil Spouse 06/06/[phone] [phone] Flaco PORTILLO (Work) [address] [employer] Workers Comp Self 1950 [id number] ([address]) [address] [phone] Flaco PORTILLO (Work) [address] DE RESIDENTIAL Occ Other 08/03/2000 [phone] [facility] Michael [employer] (Home) [place] [address] Advance Directives Documents on File Type Date Recorded Patient Nicu Rn Explanati on Healthcare Directive 02/07/2022 02/07/2022 Latest Code Status on File Code Status Date Activated Date Inactivated Comments Full Code 02/07/2022 12:31 AM 02/08/2022 12:06 PM Code Status Discussion: Reviewed Preferences Full Code 07/11/2021 7:41 AM 07/11/2021 4:35 PM Code Status Discussion: Reviewed Preferences Care Teams Resident Services Coordinator Relationship Specialty Start Date End Date Loida Estrada MD PCP - General Family Practice 07/08/[address] [place] [address] [place] [id number]
--- OUTSIDE RECORDS SUMMARY | 2022-05-01 16:18 | XMS_ITS | Encounter Summary ---
:1950 Author Organization [facility] Address [address] [place] [address] Care Team Providers Name Role Phone Unavailable Primary Care Provider Unavailable Reason for Visit Reason Onset Date Comments Outpatient COVID-19 Testing 07/25/2021 Encounter Details Date Type Department Care Team Description 07/25/2021 External Outreach Department of [facility] Roman Alvarado, Contact With And MedicinePadmini M.D. (Suspected) Exposure Clinic, in [place], [address] To COVID-19 (Primary [place], [place] Dx) [address] [address] [place], [place] [phone] [address] (Work) [phone] Social History Tobacco Use Types Packs/Day Years [...] or relatives? How often do you attend druze or More than 4 times per year 03/17/2022 restorationism services? Do you belong to any clubs or Yes 03/17/2022 organizations such as druze groups, unions, fraternal or athletic groups, or [...] to pay for the very basics like [employer] hat hard 03/17/2022 food, housing, medical care, [...] Date Recorded Female 07/20/2021 9:20 PM CATTLE INSPECTOR documented as of this encounter Progress Notes Eliana Chris R.N. - 07/25/2021 10:16 AM CST Encounter created for infectious disease screening. LE INSPECTOR documented in this encounter Plan of Treatment Upcoming Encounters Date Type Specialty Care Team Description 05/02/2022 Appointment Radiation Oncology Dot Lopez M.D. [address] [place] [phone] 05/05/2022 Appointment Radiation Oncology Judy Mccall M.D. [address] [place] [phone] 05/06/2022 Appointment Radiation Oncology Judy Mccall M.D. [address] [place] [phone] 05/06/2022 Appointment Radiation Oncology Judy Mccall M.D. [address] [place] [phone] 05/07/2022 Appointment Radiation Oncology Judy Mccall M.D. [address] [place] [phone] 05/08/2022 Appointment Radiation Oncology Judy Mccall M.D. [address] [place] [phone] 05/22/2022 Clinical Communication Admitting/Central Scheduling 05/26/2022 Appointment Radiology Merlyn Rose APRN, C.NYiPYi, M.S.N. [address] [place] [phone] 05/27/2022 Office Visit Oncology Merlyn Rose APRN, C.NLeopoldo, M.S.N. [address] [place] [phone] documented as of this encounter Procedures Procedure Name Priority Date/Time Associated Diagnosis Comme nts SARS CORONAVIRUS-2 Routine 07/25/2021 4:01 PM Contact With And Results for this RNA, V CATTLE INSPECTOR (Suspected) Exposure procedu re are in To COVID-19 the results section. documented in this encounter Results SARS Coronavirus-2 RNA, V Asymptomatic (07/25/2021 4:01 PM CATTLE INSPECTOR) [facility] Method Time Signature SARS-CoV-2 Swab, 07/26/2021 [facility] Specimen Nasopharynx 2:08 AM CATTLE INSPECTOR Source SARS CoV-2 Undetected Undetected 07/26/2021 [facility] RNA, TMA 2:08 AM CATTLE INSPECTOR Comment: SARS-CoV-2 RNA absent. This result does not rule out COVID-19 in the patient, as the sensitivity of the test depends o n the timing of the specimen collection and the quality of the specim en. Result should be correlated with patient's history and clinical presentat ion. ----ADDITIONAL INFORMATION---- This molecular amplification test was pe rformed using the Aptima SARS-CoV-2 assay ([employer] on the Spinal Simplicitys tem under emergency use authorization (EUA) by the U.S. Food and Drug Administ lazarus. Fact sheets for this EUA assay can be fo und at the following links: For Healthcare Providers: https://www.fd a.gov/media/488616/download For Patients: https://www.fda.gov/media/ 854749/download Specimen Anatomical Collection Method Collection Time Receive d Time (Source) Location / / Volume Laterality Varies 07/25/2021 4:01 PM 7:23 (Nasopharynx) CATTLE INSPECTOR PM CATTLE INSPECTOR Roman Alvarado M.D. LAB MICROBIOLOGY - GENERAL O RDERABLES Performing Organization Address City/State/ZIP Code Phon e Number [facility] [address] [place] [address] [place] [address] [address] documented in this encounter Visit Diagnoses Diagnosis Contact With And (Suspected) Exposure To COVID-19 - Primary documented in this encounter Additional Health Concerns Infection Onset Date Last Indicated Resolved Time COVID19 Pending 07/25/2021 07/25/2021 07/26/2021 2:09 AM CATTLE INSPECTOR documented as of this encounter
--- OUTSIDE RECORDS SUMMARY | 2022-05-01 16:18 | XMS_ITS | Encounter Summary ---
:1950 Author Organization [facility] Address [address] [place] [address] Care Team Providers Name Role Phone Unavailable Primary Care Provider Unavailable Reason for Referral Outpatient (Routine) - Closed Specialty Diagnoses / Procedures Referred By Contact Refer red To Contact Obstetrics and Diagnoses Malignant Neoplasm Of Uterus Endometrial (HCC) Lionel Mathews [facility] Gynecology M.DYi [address] [place] [phone] Referral ID Status Reason Start Date Expiration Date Visits Requ ested Visits Authorized [id number] Closed 08/12/2021 08/12/2022 1 1 ATIONS RECRUITER Encounter Details Date Type Department Care Team Description 08/12/2021 Orders Only Department of Lionel Mathews, Malignant Neoplasm Of Obstetrics and M.D. Uterus Endometrial Gynecology in [address] ([facility]) (Primary Dx) [place], [place] [address] [place] [address] [place], [place] [phone] (Work) [phone] Social History Tobacco Use Types Packs/Day Years [...] at Date Recorded Female 07/20/2021 9:20 PM OPERATIONS RECRUITER documented as of this encounter Plan of Treatment Upcoming Encounters Date Type Specialty Care Team Description 05/02/2022 Appointment Radiation Oncology Dot Lopez M.D. 200 [place] [phone] 05/05/2022 Appointment Radiation Oncology Judy Mccall M.D. [address] [place] [phone] 05/06/2022 Appointment Radiation Oncology Judy Mccall M.D. [address] [place] [phone] 05/06/2022 Appointment Radiation Oncology Judy Mccall M.D. [address] [place] [phone] 05/07/2022 Appointment Radiation Oncology Judy Mccall M.D. [address] [place] [phone] 05/08/2022 Appointment Radiation Oncology Judy Mccall M.D. [address] [place] [phone] 05/22/2022 Clinical Communication Admitting/Central Scheduling 05/26/2022 Appointment Radiology Merlyn Rose APRN, C.NLeopoldo, M.S.N. [address] [place] [phone] 05/27/2022 Office Visit Oncology Merlyn Rose APRN C.N.P., M.S.N. [address] [place] [phone] Scheduled Referrals Name Type Priority Associated Diagnoses [facility] and Outpatient Referral Routine Malignant Neoplasm Expected: Gynecology - Of Uterus 08/12/2021 Gynecologic oncology Endometrial (HCC) (A pproximate), surgery consult Expires: (clinic) 11/10/2022 documented as of this encounter Visit Diagnoses Diagnosis Malignant Neoplasm Of Uterus Endometrial (HCC) - Primary documented in this encounter
--- OUTSIDE RECORDS SUMMARY | 2022-05-01 16:18 | XMS_ITS | Encounter Summary ---
:1950 Author Organization [facility] Address [address] [place] [address] Care Team Providers Name Role Phone Unavailable Primary Care Provider Unavailable Encounter Details Date Type Department Care Team Description 06/17/2021 Clinical Communication Department of Lionel Mathews, Obstetrics and M.D. Gynecology in [address] [place] [phone] [place], [place] [phone] (Work) [phone] Social History Tobacco Use Types Packs/Day Years [...] or slept in a fdc (including now)? Sex Assigned at Date Recorded Female 07/20/2021 9:20 PM CONTROL CABINET ASSEMBLER documented as of this encounter Miscellaneous Notes Telephone Encounter - Ekta Sousa R.N. - 06/17/2021 12:24 PM CST PLAN The following information was provided: Dr Mathews's recommendations Information/Education: patient/caller able to teach back The following references were used: provider Dr Mathews ROL CABINET ASSEMBLER Telephone Encounter - Ekta Sousa R.N. - 06/17/2021 9:48 AM CST ASSESSMENT Was referred from [facility] for post menopausal bleeding. She had EMB completed there and will have US on Thursday afternoon. She just started her antibiotics yesterday( doxycycline 100 mg twice/day; metronidazole 500 mg twice/day) She would be able to schedule on Thursday PLAN Do you have concerns if she is not finished with her prescriptions by Thursday consult? Thank you Disposition/Recommendation: notified provider and awaiting recommendations. Information/Education: patient/caller able to teach back. Caller agreeable to plan of care: yes. The following references were used: nursing clinical judgement. ROL CABINET ASSEMBLER Telephone Encounter - JacobKatherine Ming - 06/17/2021 8:20 AM CST Patient states that she was referred by Dr. Estrada at [facility] to see Dr. Mathews. She has an ultrasoundscheduled at the hospital on Thursday and started an antibiotic on Thursday. She is wondering if she needs to finish the antibiotic prior to seeing Dr. Mathews or if it would be okay to be seen on Thursday.Please call her back at [phone] to advise. ROL CABINET ASSEMBLER documented in this encounter Plan of Treatment Upcoming Encounters Date Type Specialty Care Team Description 05/02/2022 Appointment Radiation Oncology Dot Lopez M.D. [address] [place] [phone] 05/05/2022 Appointment Radiation Oncology Judy Mccall M.D. [address] [place] [phone] 05/06/2022 Appointment Radiation Oncology Judy Mccall M.D. [address] [place] [phone] 05/06/2022 Appointment Radiation Oncology Judy Mccall M.D. [address] [place] [phone] 05/07/2022 Appointment Radiation Oncology Judy Mccall M.D. [address] [place] [address] [phone] 05/08/2022 Appointment Radiation Oncology Judy Mccall M.D. [address] [place] [phone] 05/22/2022 Clinical Communication Admitting/Central Scheduling 05/26/2022 Appointment Radiology Merlyn Rose APRN, C.N.P., M.S.N. [address] [place] [phone] 05/27/2022 Office Visit Oncology Merlyn Rose APRN C.N.P., M.S.N. [address] [place] [phone] documented as of this encounter Visit Diagnoses Not on filedocumented in this encounter
--- OUTSIDE RECORDS SUMMARY | 2022-05-01 16:18 | XMS_ITS | Encounter Summary ---
:1950 Author Organization [facility] Address [address] [place] [address] Care Team Providers Name Role Phone Unavailable Primary Care Provider Unavailable Encounter Details Date Type Department Care Team Description 08/05/2021 Clinical Communication Department of Lionel Mathews, Obstetrics and M.D. Gynecology in [address] [place] [phone] [place], [place] [phone] (Work) [phone] Social History Tobacco Use Types Packs/Day Years [...] at Date Recorded Female 07/20/2021 9:20 PM INSURANCE CLAIMS EXAMINER documented as of this encounter Miscellaneous Notes Telephone Encounter - Ekta Sousa R.N. - 08/07/2021 8:48 AM CST Questionnaire has been faxed. RANCE CLAIMS EXAMINER Telephone Encounter - Ekta Sousa R.N. - 08/05/2021 3:58 PM CST Questionnaire complete. Lab work ordered for tomorrow afternoon. Will fax form when results are back. RANCE CLAIMS EXAMINER Telephone Encounter - Ekta Sousa R.N. - 08/05/2021 2:35 PM CST Left message to call back RANCE CLAIMS EXAMINER Telephone Encounter - Olena Diamond - 08/05/2021 2:16 PM CST Patient has CT order in queue. Please fill out this CT questionnaire and fax to [phone]. Thank you. RANCE CLAIMS EXAMINER documented in this encounter Plan of Treatment Upcoming Encounters Date Type Specialty Care Team Description 05/02/2022 Appointment Radiation Oncology Dot Lopez M.D. [address] [place] [phone] 05/05/2022 Appointment Radiation Oncology Judy Mccall M.D. [address] [place] [phone] 05/06/2022 Appointment Radiation Oncology Judy Mccall M.D. [address] [place] [phone] 05/06/2022 Appointment Radiation Oncology Judy Mccall M.D. [address] [place] [phone] 05/07/2022 Appointment Radiation Oncology Judy Mccall M.D. [address] [place] [phone] 05/08/2022 Appointment Radiation Oncology Judy Mccall M.D. [address] [place] [phone] 05/22/2022 Clinical Communication Admitting/Central Scheduling 05/26/2022 Appointment Radiology Merlyn Rose APRN, Ellen.N.P., M.S.N. [address] [place] [phone] 05/27/2022 Office Visit Oncology Merlyn Rose APRN, C.N.P., M.S.N. [address] [place] [phone] documented as of this encounter Visit Diagnoses Not on filedocumented in this encounter
--- OUTSIDE RECORDS SUMMARY | 2022-05-01 16:18 | XMS_ITS | Encounter Summary ---
:1950 Author Organization [facility] Address [address] [place] [address] Care Team Providers Name Role Phone Unavailable Primary Care Provider Unavailable Reason for Visit Reason Comments PMB Appointment Request (Routine) - Closed Specialty Diagnoses / Procedures Referred By Contact Refer red To Contact Obstetrics and Gynecology Referral ID Status Reason Start Date Expiration Date Visits Requ ested Visits Authorized [id number] Closed 06/17/2021 06/17/2022 1 1 Encounter Details Date Type Department Care Team Description 06/21/2021 Comprehensive Visit Department of Lionel Mathews Urinary Obstetrics and C, M.DYi Stress Female Gynecology in [address] [place] [address] Ave (Primary Dx) [facility] [phone] [place] [address] [place], [place] (Work) [phone] Social History Tobacco Use Types Packs/Day Years [...] More than 4 times per year 03/17/2022 adventism services? Do you belong to any clubs [...] or slept in a residential (including now)? Sex Assigned at Date Recorded Female 07/20/2021 9:20 PM BAND HEAD SAW OPERATOR documented as of this encounter Last Filed Vital Signs Vital Sign Reading Time Taken Comments Blood Pressure 126/70 06/21/2021 9:54 AM BAND HEAD SAW OPERATOR Pulse 72 06/21/2021 9:54 AM BAND HEAD SAW OPERATOR Temperature - - Respiratory Rate - - Oxygen Saturation - - Inhaled Oxygen Concentration - - Weight 102 kg (224 lb 15.7 oz) 06/21/2021 9:54 AM BAND HEAD SAW OPERATOR Height 164 cm (5' 4.57) 06/21/2021 9:54 AM BAND HEAD SAW OPERATOR Body Mass Index 37.94 06/21/2021 9:54 AM BAND HEAD SAW OPERATOR documented in this encounter Progress Notes Lionel Mathews M.D. - 06/21/2021 10:15 AM CST Consult note Consult requested by Dr. Estrada HISTORY OF PRESENT ILLNESS Nelda Pavon is a 70 y.o. P0 who presents in consultation for abnormal endometrial biopsy results. Patient was seen by primary care June 11 for postmenopausal bleeding, present for a few days. Per report, stress urinary incontinence, no changes with voiding. Reported increased suprapubic/pelviccramping as well as lower abdominal pressure. Regarding her stress urinary incontinence, significantly distressing to her, a urine loss with any cough or other Valsalva. Endometrial biopsy collected, reported scant atrophic endometrium with inflammatory debris suggestive of pyometra, negative for hyperplasia, atypia, or malignancy tissue component of the specimen is scant, however, atrophic endometrium typically yields a scant specimen. An additional consideration isthe abundant inflammatory debris with the appearance of pyometra. 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 Has had colonoscopies since age 40 because of that. Has had non-cancerous polyps removed. -Had a conization for a level III over ten years ago, normal screening sent DEXA: Osteopenia, October 2020 Mammogram: BI-RADS 2, October 2020 MEDICAL HISTORY No past medical history on file. SURGICAL HISTORY No past surgical history on file. FAMILY HISTORY No family history on file. SOCIAL HISTORY Social History Socioeconomic History ??? Marital status: Spouse name: Not on file ??? Number of children: Not on file ??? Years of education: Not on file ??? Highest education level: Not on file Occupational History ??? Not on file Tobacco Use ??? Smoking status: Not on file ??? Smokeless tobacco: Not on file Substance and Sexual Activity ??? Alcohol use: Not on file ??? Drug use: Not on file ??? Sexual activity: Not on file Other Topics Concern ??? Not on file Social History Narrative ??? Not on file Social Determinants of Health Financial Resource Strain: Not on file Food Insecurity: Not on file Transportation Needs: Not on file Physical Activity: Not on file Stress: Not on file Social Connections: Not on file Intimate Partner Violence: Not on file Housing Stability: Not on file ALLERGIES/CONTRAINDICATIONS Amoxicillin-pot clavulanate, Diclofenac, and Sulfa (sulfonamide antibiotics) CURRENT MEDICATIONS Current Outpatient Medications Medication Sig Dispense Refill ??? albuterol 2.5 mg /3 mL nebulizer solution Inhale 2.5 mg. ??? albuterol 90 mcg/actuation inhaler Inhale 2 puffs. ??? cetirizine (ZyrTEC) 10 mg tablet Take 1 tablet by mouth daily. ??? fluticasone propionate (FLONASE) 50 mcg/actuation nasal spray Administer 2 sprays into nostril(s). ??? ipratropium-albuteroL (DUONEB) 0.5-2.5 mg/3 mL nebulizer solution Inhale 3 mL every 6 (six) hours as needed. ??? montelukast (SINGULAIR) 10 mg tablet Take 1 tablet by mouth at bedtime. ??? omeprazole (PriLOSEC) [address] capsule Take 20 mg by mouth. ??? sertraline (ZOLOFT) 100 mg tablet Take 100 mg by mouth daily. No current facility-administered medications for this visit. REVIEW OF SYSTEMS A 10 point Review of Systems was negative, other than as noted in the History of Present Illness. OBJECTIVE PHYSICAL EXAMINATION VITAL SIGNS Vitals: 06/21/21 0954 BP: 126/70 Pulse: 72 Weight: 102 kg Height: 164 cm Body mass index is 37.94 kg/m??. General: Alert, oriented, appropriately interactive, in no acute distress. Abdomen: Soft, nontender, nondistended. No masses. Perineum: Urethra is hyper mobile with visible leakage of urine with patient movement, otherwise, nolesions. Normal appearing external genitalia, Bartholin glands, urethra, and [employer]'s glands. Vagina: No masses or lesions. No discharge, normally rugated. Musculoskeletal: Normal gait. Symmetric movements of upper extremities and lower extremities. Lower Extremities: Nontender, no edema. Pelvic ultrasound Uterus: 6.5 x 5.2 by 4.7 cm. [...] Left ovary normal. Right ovary not identified. The following portions of the patient's history were reviewed and updated as appropriate: allergies,current medications, family history, medical history, social history, surgical history and problem list. ASSESSMENT / PLAN Nelda Pavon is a 70 y.o. who presents in consultation as detailed above. Postmenopausal bleeding - Significant concern on both biopsy results and pelvic ultrasound to represent further assessment. Recommending hysteroscopy with tissue sampling, also discussed benefits of hormonal IUD placement to reduce risk of future dysplasia. We will plan a hysteroscopy, dilation and curettage, and Mirena placement. She prefers to have this procedure completed in the operating room. We will also be performinga midurethral sling at the same time. - she understands that if a malignancy is discovered, she will be referred to Gynecologic Oncology for further management. Incontinence Urinary Stress Female - patient with chronic stress urinary incontinence which is significantly distressing to her. Patient is interested in a mid urethral sling. Positive cough stress test today as well as normal postvoid residual. Urine culture collected and pending. Risks of surgery discussed in detail, patient desires to proceed, consent signed. - Urinalysis with Microscopic: Urine, Midstream - Bacterial Culture, Aerobic + Susc, Urine - SARS Coronavirus-2 RNA, V Asymptomatic; Future Lionel Mathews M.D. 06/21/2021 10:10 AM BAND HEAD SAW OPERATOR HEAD SAW OPERATOR documented in this encounter Plan of Treatment Upcoming Encounters Date Type Specialty Care Team Description 05/02/2022 Appointment Radiation Oncology Dot Lopez M.D. [address] [place] [phone] 05/05/2022 Appointment Radiation Oncology Judy Mccall M.D. [address] [place] [phone] 05/06/2022 Appointment Radiation Oncology Judy Mccall M.D. [address] [place] [phone] 05/06/2022 Appointment Radiation Oncology Judy Mccall M.D. [address] [place] [phone] 05/07/2022 Appointment Radiation Oncology Judy Mccall M.D. [address] [place] [phone] 05/08/2022 Appointment Radiation Oncology Judy Mccall M.D. [address] [place] [phone] 05/22/2022 Clinical Communication Admitting/Central Scheduling 05/26/2022 Appointment Radiology Merlyn Rose APRN, C.N.P., M.S.N. [address] [place] [phone] 05/27/2022 Office Visit Oncology Merlyn Rose APRN, C.N.P., M.S.N. [address] [place] [phone] documented as of this encounter Procedures Procedure Name Priority Date/Time Associated Diagnosis Comme nts BACTERIAL CULTURE, Routine 06/21/2021 10:34 Incontinence Urina ry Results for this AEROBIC + SUSC, AM BAND HEAD SAW OPERATOR Stress Female procedure a re in URINE the results section. URINALYSIS WITH Routine 06/21/2021 10:34 Incontinence Urinary Results for this MICROSCOPIC AM BAND HEAD SAW OPERATOR Stress Female procedure are in the results section. documented in this encounter Results Bacterial Culture, Aerobic + Susc, Urine (06/21/2021 10:34 AM BAND HEAD SAW OPERATOR) [facility] Method Time Signature Urine Culture No growth 06/22/2021 [facility] after 1 day 4:28 PM BAND HEAD SAW OPERATOR of incubation. Specimen Anatomical Collection Method Collection Time Receive d Time (Source) Location / / Volume Laterality Urine (Urine, 06/21/2021 10:34 06/21/2021 7:47 Midstream) AM BAND HEAD SAW OPERATOR PM BAND HEAD SAW OPERATOR Comment: Specimen Source Site: Urine Lionel Mathews M.D. LAB MICROBIOLOGY - GENERAL O RDERABLES Performing Organization Address City/State/ZIP Code Phon e Number [facility]- [address] [place] [address] [place] [address] System [address] (ABNORMAL) Urinalysis with Microscopic: Urine, Midstream (06/21/2021 10:34 AM BAND HEAD SAW OPERATOR) [facility] Time Signature Source Urine, Urine, 06/21/2021 FB60 Midstream 12:28 PM BAND HEAD SAW OPERATOR Clarity Clear Clear 06/21/2021 FB60 12:40 PM BAND HEAD SAW OPERATOR Color Yellow 06/21/2021 FB60 12:40 PM BAND HEAD SAW OPERATOR Comment: ----REFERENCE VALUE---- Colorless Yellow Evon Blood Negative Negative 06/21/2021 12:40 PM BAND HEAD SAW OPERATOR FB60 Nitrite Negative Negative 06/21/2021 12:40 PM BAND HEAD SAW OPERATOR FB60 Leukocyte Esterase Trace (A) Negative 06/21/2021 12:[address] FB60 Protein Negative mg/dL 06/21/2021 12:40 PM BAND HEAD SAW OPERATOR FB60 Comment: ----REFERENCE VALUE---- Negative Trace Glucose Negative Negative mg/dL 06/21/2021 12:40 PM BAND HEAD SAW OPERATOR F B60 Ketones, QI(U) Negative Negative mg/dL 06/21/2021 12:40 PM BAND HEAD SAW OPERATOR FB60 Bilirubin Negative Negative 06/21/2021 12:40 PM BAND HEAD SAW OPERATOR FB60 pH 6.5 5.0 - 8.0 06/21/2021 12:40 PM BAND HEAD SAW OPERATOR FB60 Specific [place] 1.015 1.001 - 1.035 06/21/2021 12:40 PM BAND HEAD SAW OPERATOR FB60 Urobilinogen 0.2 0.2 - 1.0 mg/dL 06/21/2021 12:[address] FB60 White Blood Cells Occ-3 /hpf 06/21/2021 12:40 PM CS T FB60 Comment: ----REFERENCE VALUE---- Males: 0-3 Females: 0-10 Unknown: 0-10 Red Blood Cells None Seen 0 - 2 /hpf 06/21/2021 12:40 PM BAND HEAD SAW OPERATOR FB60 Squamous Cells Occ-3 /hpf 06/21/2021 12:40 PM BAND HEAD SAW OPERATOR F B60 Specimen Anatomical Collection Method Collection Time Receive d Time (Source) Location / / Volume Laterality Urine (Urine, 06/21/2021 10:34 06/21/2021 Midstream) AM BAND HEAD SAW OPERATOR 12:28 PM BAND HEAD SAW OPERATOR Lionel Mathews M.D. LAB URINE ORDERABLES Performing Organization Address City/State/ZIP Code Phon e Number [facility]- [address] [place] [address] [facility] FB[address] [place] [address] System in [place] [address] documented in this encounter Visit Diagnoses Diagnosis Incontinence Urinary Stress Female - Anais garcias documented in this encounter
--- OUTSIDE RECORDS SUMMARY | 2022-05-01 16:18 | XMS_ITS | Encounter Summary ---
:1950 Author Organization [facility] Address [address] [place] [address] Care Team Providers Name Role Phone Unavailable Primary Care Provider Unavailable Encounter Details Date Type Department Care Team Description 08/23/2021 Orders Only Department of Bailee Rocha, Mass Uterus (Primary Obstetrics and R.N. Dx) Gynecology in [address] [place] [address] [place] [phone] [place], [place] [phone] (Work) [phone] Social History Tobacco Use Types Packs/Day Years [...] or relatives? How often do you attend restorationism or More than 4 times per year 03/17/2022 islam services? Do you belong to any clubs or Yes 03/17/2022 organizations such as restorationism groups, unions, fraternal or athletic groups, or [...] at Date Recorded Female 07/20/2021 9:20 PM BANK RECONCILIATOR documented as of this encounter Plan of Treatment Upcoming Encounters Date Type Specialty Care Team Description 05/02/2022 Appointment Radiation Oncology Dot Lopez M.D. [address] [place] [phone] 05/05/2022 Appointment Radiation Oncology Judy Mccall M.D. [address] [place] [phone] 05/06/2022 Appointment Radiation Oncology Judy Mccall M.D. [address] [place] [phone] 05/06/2022 Appointment Radiation Oncology Judy Mccall M.D. [address] [place] [phone] 05/07/2022 Appointment Radiation Oncology Judy Mccall M.D. [address] [place] [address] [phone] 05/08/2022 Appointment Radiation Oncology Judy Mccall M.D. [address] [place] [phone] 05/22/2022 Clinical Communication Admitting/Central Scheduling 05/26/2022 Appointment Radiology KlampeMerlyn APRN, C.N.P., M.S.N. [address] [place] [phone] 05/27/2022 Office Visit Oncology AnoopsadieMerlyn APRN, C.N.P., M.S.N. [address] [place] [phone] documented as of this encounter Results Pathology Review of Outside Material (07/11/2021 10:59 AM BANK RECONCILIATOR) Component Value Ref Test Analysis Performed Pathologis t Range Method Time At Signature 08/28/2021 DTL 11:03 AM BANK RECONCILIATOR Report Ivania Miller M.D. 08/28/2021 DTL electronically 11:03 AM signed by BANK RECONCILIATOR I verify that I have examined all relevant slides/materials for the specimen(s) and rendered or confirmed the diagnosis. Material A. [id number]: Endometrial curettings, cervix 08/28/2021 DTL Received ? 11 stained slides 11:03 AM BANK RECONCILIATOR Interpretation FINAL DIAGNOSIS 08/28/2021 DTL 11:03 AM Uterus, endometrium and cervix([id number]; 07/11/2021): BANK RECONCILIATOR A. Endometrium, curettage: Fibrinopurulent exudate suggestive of pyometra. Scant background proliferative endometrium with breakdown. Fragments of fibroadipose tissue. B. Cervix, biopsy: ??Benign atrophic cervical mucosa. Sampling of ectocervix. Transformation zone not visualized. Negative for glandular neoplasia, squamous intraepithelial lesion, and malignancy. Immunohistochemical stains are performed by the referring institution and reviewed at [place], [place]. Block A1: P16 immunostain is performed. Glandular cells show focal/mosaic staining, providing no evidence of an endocervical neoplastic lesion is this sample. Specimen Anatomical Collection Method Collection Time Receive d Time (Source) Location / / Volume Laterality Varies 07/11/2021 10:59 08/27/2021 AM BANK RECONCILIATOR 12:29 PM BANK RECONCILIATOR Narrative This result has an attachment that is no t available. Jessy E Miriam M.D. LAB SURG PATH ORDERABLES Performing Organization Address City/State/ZIP Code Phon e Number [facility] - [address] [place], [place] [address] [facility] [place] [address] [facility] [address] documented in this encounter Visit Diagnoses Diagnosis Mass Uterus - Primary documented in this encounter Additional Health Concerns Infection Onset Date Last Indicated Resolved Time COVID19 Pending 08/31/2021 09/01/2021 09/01/2021 10:54 PM BANK RECONCILIATOR documented as of this encounter
--- OUTSIDE RECORDS SUMMARY | 2022-05-01 16:18 | XMS_ITS | Encounter Summary ---
:1950 Author Organization [facility] Address [address] [place] [address] Care Team Providers Name Role Phone Unavailable Primary Care Provider Unavailable Encounter Details Date Type Department Care Team Description 10/19/2005 Hospital Encounter HX [facility] E[facility] Deshawn Gallegos M.D. [address] [place] [address] 5057 (Wo rk) Social History Tobacco Use Types [...] or slept in a jail (including now)? 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 [address] [place] [phone] 05/05/2022 Appointment Radiation Oncology Judy Mccall M.D. [address] [place] [address] [phone] 05/06/2022 Appointment Radiation Oncology Judy Mccall M.D. [address] [place] [phone] 05/06/2022 Appointment Radiation Oncology Judy Mccall M.D. [address] [place] [phone] 05/07/2022 Appointment Radiation Oncology Judy Mccall M.D. [address] [place] [address] [phone] 05/08/2022 Appointment Radiation Oncology Judy Mccall M.D. [address] [place] [phone] 05/22/2022 Clinical Communication Admitting/Central Scheduling 05/26/2022 Appointment Radiology Merlyn Rose APRN, C.N.P., M.S.N. [address] [place] [address] [phone] 05/27/2022 Office Visit Oncology Merlyn Rose APRN, C.NYiP., M.S.N. [address] [place] [phone] documented as of this encounter Visit Diagnoses Not on filedocumented in this encounter
--- OUTSIDE RECORDS SUMMARY | 2022-05-01 16:18 | XMS_ITS | Encounter Summary ---
:1950 Author Organization [facility] Address [address] [place] [address] Care Team Providers Name Role Phone Unavailable Primary Care Provider Unavailable Encounter Details Date Type Department Care Team Description 08/06/2021 Hospital Encounter Department of Lionel Mathews Laboratory Medicine Brady Hughes Infectious Disease in [address] 300 [facility] [phone] [place], [place] [phone] (Work) [phone] Social History Tobacco Use Types Packs/Day Years [...] at Date Recorded Female 07/20/2021 9:20 PM THEATER COMPANY PRODUCER documented as of this encounter Medications at [...] daily. fluticasone propionate Administer 2 sprays 0 /0 03/2021 (FLONASE) 50 into nostril(s) 2 (two) [...] Appointment Radiation Oncology Dot Lopez M.D. [address] [place] [phone] 05/05/2022 Appointment Radiation Oncology Judy Mccall M.D. [address] [place] [address] [phone] 05/06/2022 Appointment Radiation Oncology Judy Mccall M.D. [address] [place] [phone] 05/06/2022 Appointment Radiation Oncology Judy Mccall M.D. [address] [place] [address] [phone] 05/07/2022 Appointment Radiation Oncology Judy Mccall M.D. [address] [place] [phone] 05/08/2022 Appointment Radiation Oncology Judy Mccall M.D. [address] [place] [phone] 05/22/2022 Clinical Communication Admitting/Central Scheduling 05/26/2022 Appointment Radiology Merlyn Rose APRN, C.NLeopoldo, M.S.N. [address] [place] [phone] 05/27/2022 Office Visit Oncology Merlyn Rose APRN, C.NYiPYi, M.S.N. [address] [place] [phone] documented as of this encounter Procedures Procedure Name Priority Date/Time Associated Diagnosis Comme nts CREATININE WITH Routine 08/06/2021 3:28 PM Unspecified Result s for this EGFR, S/P THEATER COMPANY PRODUCER Infectious Disease procedure are in the results section. documented in this encounter Results Creatinine with Estimated GFR (08/06/2021 3:28 PM THEATER COMPANY PRODUCER) P athologist Signature Creatinine 0.82 0.59 - 08/06/2021 [place] 1.04 mg/dL 6:09 PM THEATER COMPANY PRODUCER eGFR-Black/Afric 84 >=60 08/06/2021 [place] an Scottish mL/min/BSA 6:09 PM THEATER COMPANY PRODUCER Comment: ----ADDITIONAL INFORMATION---- Estimated GFR calculated using the 2009 CKD_EPI creatinine equation. eGFR Non-Black/ 73 >=60 mL/min/BSA 6:09 PM THEATER COMPANY PRODUCER [facility] Comment: ----ADDITIONAL INFORMATION---- Estimated GFR calculated using the 2009 CKD_EPI creatinine equation. Specimen Anatomical Collection Method Collection Time Receive d Time (Source) Location / / Volume Laterality Blood (Blood, 08/06/2021 3:28 PM 08/06/19 5:47 Venous) THEATER COMPANY PRODUCER PM THEATER COMPANY PRODUCER Lionel Mathews M.D. LAB BLOOD ADD-ON Performing Organization Address City/State/ZIP Code Phon e Number [facility]- [address] [place] [address] [place] [address] System in [place] [address] documented in this encounter Visit Diagnoses Diagnosis Unspecified Infectious Disease documented in this encounter
--- OUTSIDE RECORDS SUMMARY | 2022-05-01 16:18 | XMS_ITS | Encounter Summary ---
:1950 Author Organization [facility] Address [address] [place] [address] Care Team Providers Name Role Phone Unavailable Primary Care Provider Unavailable Reason for Referral MRI/CAT/PET Scan (Routine) - Closed Specialty Diagnoses / Procedures Referred By Contact Refer red To Contact Radiology Diagnoses Unspecified Infectious Disease Lionel Mathews M.D. [facility] Procedures CT Abdomen Pelvis with IV Contrast CT Abdomen Pelvis without and with IV Contrast [address] [place] [address] Referral ID Status Reason Start Date Expiration Date Visits Requ ested Visits Authorized [id number] Closed 08/05/2021 08/05/2022 1 1 NEERING SECRETARY Reason for Visit Reason Comments Post-op Visit Encounter Details Date Type Department Care Team Description 08/05/2021 Office Visit Department of Lionel Mathews Unspecifie d Infectious Obstetrics and Brady Disease (Primary Dx) Gynecology in [address] [place], [place] [address] [facility] [address] [place], [place] [phone] (Work) [phone] Social History Tobacco Use Types Packs/Day Years [...] at Date Recorded Female 07/20/2021 9:20 PM ENGINEERING SECRETARY documented as of this encounter Last Filed Vital Signs Vital Sign Reading Time Taken Comments Blood Pressure 104/62 08/05/2021 10:34 AM ENGINEERING SECRETARY Pulse - - Temperature - - Respiratory Rate - - Oxygen Saturation - - Inhaled Oxygen Concentration - - Weight 105 kg (231 lb 0.7 oz) 08/05/2021 10:34 AM ENGINEERING SECRETARY Height - - Body Mass Index 38.96 06/21/2021 9:54 AM ENGINEERING SECRETARY documented in this encounter Progress Notes Lionel Mathews M.D. - 08/05/2021 10:45 AM CST S: Nelda Pavon is a 70 y.o. P0 here for post-operative visit following a Hysteroscopy with morcellation, D&C, Cervical biopsy, Retropubic Midurethral Sling. The procedure was complicated by false passage being created on hysteroscopy with sampling of extra uterine tissue. The intrauterine pathology showed scant proliferative endometrium as well as possible pyometra, similar to her prior endometrial biopsy results. There is a possibility of underlying malignancy with the presence of pyometrain a patient of this age, however no malignant tissue was noted. She reports feeling well, she does have some ongoing left groin pain without focus. She notes only 1episode of stress incontinence of the procedure when she was literally ???rolling on the floor laughing?? otherwise doing very well status post her sling. She denies any abdominal pain, changes in appetite, changes in bowel movements, other systemic symptoms. 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 Has had colonoscopies since age 40 because of that. Has had non-cancerous polyps removed. -Had a conization for a level III over ten years ago, normal screening sent ?? DEXA: Osteopenia, October 2020 Mammogram: BI-RADS 2, October 2020 Current Outpatient Medications Medication Sig Dispense Refill [...] No current facility-administered medications for this visit. Allergies Allergen Reactions ??? Amoxicillin-Pot Clavulanate Diarrhea and GI intolerance ??? Diclofenac Angioedema ??? Sulfa (Sulfonamide Antibiotics) Hives No past medical history on file. No past surgical history on file. O: Vitals: 08/05/21 1034 BP: 104/62 Gen: Alert, oriented, appropriately interactive, NAD CV: RRR, 2+ peripheral pulses Resp: CTAB, good effort without distress Abdomen: soft, non tender, non distended, no masses MSK: normal gait, symmetric movements UE & LE Lower extremities: non-tender, no edemar rashes Pathology: A) ENDOMETRIUM, CURETTAGE: 1. Fibrinopuruplent exudate suggestive of pyometra 2. Scant background proliferative endometrium with breakdown 3. Fragments of fibroadipose tissue 4. See comment B) CERVIX, BIOPSY: 1. Benign atrophic cervical mucosa ? a. Sampling: Ectocervix ? b. Transformation zone: Not visualized 2. Negative for glandular neoplasia, squamous intraepithelial lesion, ? and malignancy Pelvic ultrasound June 20, 2021: Uterus: 6.5 x 5.2 by 4.7 cm. [...] Left ovary normal. Right ovary not identified. A/P: Post op as detailed above. Reviewed her pathology results as well as prior ultrasound results. Reviewed that no malignancy was noted on either her endometrial tissue or her cervical biopsy, however some risk remains for an underlying malignancy. We reviewed options today including expected management, CT scan of her pelvis and abdomen, or a hysterectomy, further reviewed that the hysterectomy could be performed by gynecologic oncology with the benefit of frozen pathology and further tissue sampling if indicated. She would prefer to start with a CT scan, does not desire further surgical management unless indicated by findings on imaging. She is aware that she will need to return for further assessment if she experiences further postmenopausal bleeding or other concerning findings. Unspecified Infectious Disease - CT Abdomen Pelvis without and with IV Contrast; Future - Creatinine with Estimated GFR; Future Electronically signed by: Lionel Mathews M.D. 08/05/21 10:42 AM ENGINEERING SECRETARY NEERING SECRETARY documented in this encounter Plan of Treatment Upcoming Encounters Date Type Specialty Care Team Description 05/02/2022 Appointment Radiation Oncology Dot Lopez M.D. [address] [place] [phone] 05/05/2022 Appointment Radiation Oncology Judy Mccall M.D. [address] [place] [phone] 05/06/2022 Appointment Radiation Oncology Judy Mccall M.D. [address] [place] [phone] 05/06/2022 Appointment Radiation Oncology Judy Mccall M.D. [address] [place] [phone] 05/07/2022 Appointment Radiation Oncology Judy Mccall M.D. [address] [place] [phone] 05/08/2022 Appointment Radiation Oncology Judy Mccall M.D. [address] [place] [phone] 05/22/2022 Clinical Communication Admitting/Central Scheduling 05/26/2022 Appointment Radiology Merlyn Rose APRN, C.N.P., M.S.N. [address] [place] [phone] 05/27/2022 Office Visit Oncology AnoopWinter noelruben Sam APRN, C.N.P., M.S.N. [address] [place] [address] documented as of this encounter Results CT Abdomen Pelvis with IV Contrast (08/12/2021 9:22 AM ENGINEERING SECRETARY) Anatomical Region Laterality Modality Abdomen, Pelvis, Abdominal RST LOS, Abdominal ARZ LOS, N/A Computed Tomography Abdominal FLA LOS Specimen (Source) Anatomical Collection Method Collection Time Re ceived Time Location / / Volume Laterality 08/12/2021 12:58 PM ENGINEERING SECRETARY Impressions 08/12/2021 1:17 PM ENGINEERING SECRETARY 1. ??6.2 cm mass replacement of endometrium [...] internal iliac vessels. Narrative 08/12/2021 1:17 PM ENGINEERING SECRETARY EXAM: CT ABDOMEN PELVIS WITH IV CONTRAST [...] and internal iliac vessels. Lionel Mathews M.D. IMG CT PROCEDURES Creatinine with Estimated GFR (08/06/2021 3:28 PM ENGINEERING SECRETARY) P athologist Signature Creatinine 0.82 0.59 - 08/06/2021 [place] 1.04 mg/dL 6:09 PM ENGINEERING SECRETARY eGFR-Black/Afric 84 >=60 08/06/2021 [place] an Maldivian mL/min/BSA 6:09 PM ENGINEERING SECRETARY Comment: ----ADDITIONAL INFORMATION---- Estimated GFR calculated using the 2009 CKD_EPI creatinine equation. eGFR Non-Black/ 73 >=60 mL/min/BSA 6:09 PM ENGINEERING SECRETARY [place] Comment: ----ADDITIONAL INFORMATION---- Estimated GFR calculated using the 2009 CKD_EPI creatinine equation. Specimen Anatomical Collection Method Collection Time Receive d Time (Source) Location / / Volume Laterality Blood (Blood, 08/06/2021 3:28 PM 08/06/19 5:47 Venous) ENGINEERING SECRETARY PM ENGINEERING SECRETARY Lionel Mathews M.D. LAB BLOOD ADD-ON Performing Organization Address City/State/ZIP Code Phon e Number [facility]- [address] [place] [address] [place] [address] System in [place] [address] documented in this encounter Visit Diagnoses Diagnosis Unspecified Infectious Disease - Primary Unspecified Infectious Disease documented in this encounter
--- OUTSIDE RECORDS SUMMARY | 2022-05-01 16:18 | XMS_ITS | Encounter Summary ---
:1950 Author Organization [facility] Address [address] [place] [address] Care Team Providers Name Role Phone Unavailable Primary Care Provider Unavailable Encounter Details Date Type Department Care Team Description 07/17/2021 Clinical Communication Department of Lionel Mathews, Obstetrics and M.D. Gynecology in [address] [place] [address] [place], [place] [phone] (Work) [phone] Social History Tobacco Use Types Packs/Day Years [...] or slept in a detention (including now)? 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 - 07/17/2021 9:44 AM CST I called the patient at home and reviewed her pathology results as well as prior ultrasound results.Reviewed that no malignancy was noted on either her endometrial tissue or her cervical biopsy, however some risk remains for an underlying malignancy. We reviewed options today including expected management, CT scan of her pelvis and abdomen, or a hysterectomy, further reviewed that the hysterectomy could be performed by gynecologic oncology with the benefit of frozen pathology and further tissue sampling if indicated. Patient would like to think about all of her options, plan to discuss further at her follow-up postop visit. Electronically signed by: Lionel Mathews M.D. 07/17/21 9:45 AM GENERAL SCRAP WORKER RAL SCRAP WORKER documented in this encounter Plan of Treatment Upcoming Encounters Date Type Specialty Care Team Description 05/02/2022 Appointment Radiation Oncology Dot Lopez M.D. [address] [place] [phone] 05/05/2022 Appointment Radiation Oncology Judy Mccall M.D. [address] [place] [phone] 05/06/2022 Appointment Radiation Oncology Judy Mccall M.D. [address] [place] [phone] 05/06/2022 Appointment Radiation Oncology Judy Mccall M.D. [address] [place] [phone] 05/07/2022 Appointment Radiation Oncology Judy Mccall M.D. [address] [place] [phone] 05/08/2022 Appointment Radiation Oncology Judy Mccall M.D. [address] [place] [phone] 05/22/2022 Clinical Communication Admitting/Central Scheduling 05/26/2022 Appointment Radiology Merlyn Rose APRN, C.N.P., M.S.N. [address] [place] [phone] 05/27/2022 Office Visit Oncology Merlyn Rose APRN, C.N.P., M.S.N. [address] [place] [phone] documented as of this encounter Visit Diagnoses Not on filedocumented in this encounter
--- OUTSIDE RECORDS SUMMARY | 2022-05-01 16:19 | XMS_ITS ---
:1950 Author Care Team Providers Name Role Phone Leonela Renee Primary Care Provider Unavailable Allergies Code Code System Name Reaction Severity Status Onset NKDA ? Medications Name Status Start Date Stop Date ? ? acetaminophen 300 mg-codeine 30 mg tablet Active ? Not available brimonidine 0.2 % eye drops Active ? Not available INSTILL ONE DROP TO SURGICAL EYE TWO TIMES A DAY FOR 7 DAYS doxycycline hyclate 100 mg capsule Active ? Not available TAKE ONE CAPSULE BY MOUTH TWICE A DAY FOR 7 DAYS doxycycline hyclate 100 mg tablet Active ? Not available TAKE ONE TABLET BY MOUTH TWICE A DAY FOR 5 DAYS fluticasone propionate 50 mcg/actuation nasal spray,suspension A ctive ? Not available INHALE ONE SPRAY INTO BOTH NOSTRILS TWO TIMES DAILY metronidazole 500 mg tablet Active ? Not available TAKE ONE TABLET BY MOUTH TWICE A DAY FOR 7 DAYS montelukast 10 mg tablet Active ? Not alma ilable TAKE ONE TABLET BY MOUTH EVERY DAY AT BEDTIME sertraline 100 mg tablet Active ? Not alma ilable TAKE ONE TABLET BY MOUTH EVERY DAY Problems None recorded. Procedures None recorded. Results Lab Results Date Name Specimen Result Interpretation Description Value Range Status Address ? 07/30/2021 SARS CoV 2 RNA, Nose (nasal ? Result negative ? ? [facility] QL, ALYCE+probe, passage) [facility] [place]: [address] , [place] Past Encounters 07/30/2021 Exposure to SARS-CoV-2 Leonela Renee PA-C: [address], [place] [phone], Ph. Social History None recorded. Vaccine List Vaccine Type COVID-19, mRNA, LNP-S, PF, 30 mcg/0.3 mL dose ([employer]) 10/07/2020 10/28/2020 06/24/2021 Influenza vaccine, quadrivalent, adjuvan [place] 05/17/2020 05/10/2021 influenza, high dose seasonal 06/07/2016 05/25/2017 06/03/2018 06/16/2019 influenza, injectable, quadrivalent, pre servative free 05/03/2015 influenza, seasonal, injectable 05/29/2003 07/19/2010 04/29/2012 05/05/2013 06/13/2014 influenza, seasonal, injectable, preserv ative free 05/17/2011 pneumococcal conjugate PCV 13 05/25/2017 pneumococcal polysaccharide PPV23 06/03/2018 Td (adult), adsorbed 01/10/2003 Tdap 06/09/2013 zoster live 05/05/2013 zoster recombinant 01/03/2019 03/21/2019 Plan of Care Reminders Provider Appointments None recorded. ? ? Lab None recorded. ? ? Referral None recorded. ? ? Procedures None recorded. ? ? Surgeries None recorded. ? ? Imaging None recorded. ? ? Vitals Blood Pressure 112/74 mm[Hg]
[2022-05-01 17:00] VITALS: BP 116/61; PULSE 64; RESP 16; O2SAT 96
[2022-05-01 17:45] VITALS: BP 116/61
== END 2022-05-01 17:47 | disposition home or self-care (01) ==
PROVIDERS: Emergency Provider Emergency Medicine Emergency Medical Services
DX: R55 Syncope and collapse (principal)
CPT/HCPCS: 70450; 99283; 99284

== ENCOUNTER 2022-05-23 10:00 | Outpatient (RCR) | payer MEDICARE, BC, SELFPAY ==
[2022-03-04 10:13] VITALS: BP 100/61; PULSE 60; RESP 16; TEMP 36.4; O2SAT 99
[2022-03-04] MEDS: 0.9 % SODIUM CHLORIDE 1000 ml 1,000 ML IV (10:30)
[2022-03-07] MEDS: 0.9 % SODIUM CHLORIDE 1000 ml 1,000 ML IV (10:00)
[2022-03-07 10:13] VITALS: BP 118/62; PULSE 65; RESP 18; TEMP 36.2; O2SAT 100
[2022-04-23 13:30] VITALS: BP 107/71; PULSE 63; RESP 16; TEMP 36.5; O2SAT 94
[2022-04-23] MEDS: SODIUM CHLORIDE 0.9 % (FLUSH) 10 ML SYRINGE IVF (13:40)
[2022-04-25 13:15] VITALS: BP 122/80; PULSE 61; RESP 16; TEMP 36.3; O2SAT 98
[2022-04-25] MEDS: 0.9 % SODIUM CHLORIDE 1000 ml 1,000 ML IV (13:51)
[2022-04-29 13:23] VITALS: BP 121/74; PULSE 64; RESP 16; TEMP 36.3; O2SAT 99
[2022-05-01 13:20] VITALS: BP 108/64; PULSE 72; RESP 16; TEMP 36.8; O2SAT 96
[2022-05-01] MEDS: 0.9 % SODIUM CHLORIDE 1000 ml 1,000 ML IV (13:31)
--- NOTE | 2022-05-01 13:39 | PC.NURSE ---
Nelda is here today for IVF. She has her last brachytherapy at [facility] in [place] tomorrow, 05/02/2022 and then will get 4 standard radiation doses in [place] next week. RN will schedule her for IVF for next week prior to her d/c today.
[2022-05-01 14:42] VITALS: BP 123/72; PULSE 66; RESP 20; O2SAT 99
[2022-05-01 14:43] VITALS: BP 108/67; PULSE 68; RESP 18; O2SAT 96
--- NOTE | 2022-05-01 15:02 | PC.NURSE ---
Addendum entered by Apolonia Rain RN 05/01/22 15:17: RN called [facility] team with this update. They will pass it along to the [place] radiation team as well. Original Note: Code help called by motel front desk attendant. Hospital response team and [facility] RN's went to the scene to see Nelda on the bathroom floor. Per pt report, after discharging from [facility], pt proceeded to the [facility] ambulatory with cane. She had gone to sit down on the toilet and fell to the left and landed on her bottom on the floor. Pt was incontinent of urine at that time. Nelda shares that she attempted to get up but slipped and hit her head on the toilet. She was picked up and brought back to [facility] with the help of the domestic housekeeper and other [facility] RN's. Vital signs obtained, see flowsheet. Pt states that she has fallen 5-6 times in the recent past. She uses a cane but has a walker at home. Nelda is on Eliquis so was sent to the [facility] ER for evaluation. Report called to electronics technology instructor. Number given for viscose cellar charge hand to call back with any follow up questions.
[2022-05-06 14:09] VITALS: BP 119/65; PULSE 72; RESP 16; TEMP 36.6; O2SAT 99
[2022-05-06 14:10] VITALS: BP 102/66; PULSE 70; RESP 16; O2SAT 98
[2022-05-06] MEDS: 0.9 % SODIUM CHLORIDE 1000 ml 1,000 ML 900 ML IV (14:28)
[2022-05-06 15:36] VITALS: BP 102/62; PULSE 68
[2022-05-06 15:40] VITALS: BP 110/65; PULSE 67
[2022-05-07 13:18] VITALS: BP 116/67; PULSE 67; RESP 16; TEMP 36.3; O2SAT 98
[2022-05-07] MEDS: 0.9 % SODIUM CHLORIDE 1000 ml 1,000 ML IV (13:56)
[2022-05-09 14:13] VITALS: BP 123/74; PULSE 68; RESP 18; TEMP 36.5; O2SAT 98
[2022-05-09] MEDS: 0.9 % SODIUM CHLORIDE 1000 ml 1,000 ML IV (14:15)
[2022-05-12 14:15] VITALS: BP 116/61; PULSE 63; RESP 16; TEMP 36.4; O2SAT 97
[2022-05-12] MEDS: SODIUM CHLORIDE 0.9 % (FLUSH) 10 ML SYRINGE IVF (14:50)
[2022-05-12] MEDS: 0.9 % SODIUM CHLORIDE 1000 ml 1,000 ML IV (14:50)
--- NOTE | 2022-05-12 15:11 | ONC.NURNOTE ---
patients orders 05/14/22. pt aware and will be calling her MD for continued orders.
[2022-05-14 14:33] VITALS: BP 111/62; PULSE 64; RESP 16; TEMP 36.6; O2SAT 97
[2022-05-16] MEDS: 0.9 % SODIUM CHLORIDE 1000 ml 1,000 ML IV (14:18)
[2022-05-16] MEDS: SODIUM CHLORIDE 0.9 % (FLUSH) 10 ML SYRINGE IVF (14:18)
[2022-05-16 15:47] VITALS: BP 121/76; PULSE 75; RESP 18; O2SAT 98
[2022-05-19] MEDS: 0.9 % SODIUM CHLORIDE 1000 ml 1,000 ML IV (10:30)
[2022-05-19 10:42] VITALS: BP 125/63; PULSE 61; RESP 16; TEMP 36.1; O2SAT 100
[2022-05-21 14:09] VITALS: BP 124/74; PULSE 76; RESP 16; TEMP 36.4; O2SAT 100
[2022-05-21] MEDS: 0.9 % SODIUM CHLORIDE 1000 ml 1,000 ML IV (14:37)
[2022-05-23 10:11] VITALS: BP 132/71; PULSE 65; RESP 16; TEMP 36.6; O2SAT 97
[2022-05-23] MEDS: 0.9 % SODIUM CHLORIDE 1000 ml 1,000 ML IV (10:38)
== END 2022-08-31 23:59 | disposition home or self-care (01) ==
LOC: CCIC 10:00
PROVIDERS: Visit Provider Clinical Nurse Specialist
DX: C54.1 Malignant neoplasm of endometrium (principal)
CPT/HCPCS: 96360; 96365; J7030